=== PATIENT | male | born 1970 | race Caucasian/White ===

== ENCOUNTER 2019-09-02 14:43 | Emergency (ER) | payer OTHER ==
--- OUTSIDE RECORDS SUMMARY | 2019-09-02 14:48 | XMS REPORT ---
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 Cristiana Luther Constipation active Cristiana Luther Std exposure completed - Cristiana Luther Fitting/adjustment, completed - Cristiana Luther glasses/contact lenses Open angle with borderline completed - Cristiana Luther findings, low risk, bilateral Presbyopia - OU completed - Cristiana Luther Myopia, right eye completed - Cristiana Luther Thrombocytopenia active Cristiana Luther Hyperlipidemia active Cristiana Luther Transaminases, serum, elevated active Cristiana Luther URI completed - Cristiana Luther Overweight active Cristiana Luther Syphilis active Cristiana Luther Psoriasis active Cristiana Luther Health care maintenance active Cristiana Luther Tobacco use active Cristiana Luther Cigarette smoker completed - Cristiana Luther Mycobacterial disease active Emerson Anderson Positive serology for syphilis completed - Cristiana Luther Hepatitis C active Emerson Anderson Pre-procedural laboratory completed - Emerson Anderson examination HIV infection active Nathalie Worthy ENCOUNTERS Date Type Provider Location Encounter Diagnosis Ambulatory Cristiana Luther [facility] [facility] Adult UNK /30 - Encounter Cristiana Luther Medicine Nique Andino /30 MedAdherence, Ambulatory Cristiana Luther [facility] [place] Adult UNK /12 - Encounter Cristiana Luther Medicine [facility] /12 2019/09 Ambulatory Cristiana Luther [facility] Adult UNK /12 - Encounter Cristiana Ashkan Medicine [facility] Ambulatory Cristiana Luther [facility] Adult UNK /12 - Encounter Cristiana Ashkan Medicine Ambulatory Cristianatom Luther [facility] Adult UNK /12 - Encounter Cristianatom Luther Medicine Ambulatory Cristiana Luther [facility] Adult Std exposureConstipationFamily /12 - Encounter Cristiana Ashkan Medicine discordNoncompliance Sandra /12 Yoder Porfirio Whitmore Ambulatory Cristiana Luther [facility] Adult UNK /04 - Encounter Cristianatom Luther Medicine [facility] Ambulatory Cristiana Luther [facility] Adult UNK /29 - Encounter Cristianatom Luther Medicine Link Ambulatory Dahlia [facility] UNK /26 - Encounter [facility] Health / Services Ambulatory Dahlia Legacy UNK /31 - Encounter [facility] Health Services Ambulatory Jewel Tristan UNK /18 - Encounter [facility] Services Ambulatory Fax Status Legacy UNK /16 - Encounter [facility] Health / Services Ambulatory Cristiana Luther [facility] Adult UNK /25 - Encounter Cristiana Ashkan Medicine [facility] Ambulatory Cristiana Luther [facility] Adult UNK /26 - Encounter Cristianatom Luther Medicine [facility] Ambulatory Cristiana Luther [facility] Adult UNK /26 - Encounter Cristiana Ashkan Medicine [facility] Ambulatory Karie [facility] UNK /02 - Encounter [facility] Health /02 Services Ambulatory Cristianatom Luther [facility] Adult Std exposure /14 - Encounter Cristiana Ashkan Medicine Ambulatory Dahlia [facility] UNK /01 - Encounter [facility] Health / Cristiana Ashkan Services Phu Pardo Ambulatory Porfirio Whitmore [facility] Adult UNK /29 - Encounter Medicine Ambulatory Cristiana Ashkan [facility] Adult UNK /26 - Encounter Cristiana Ashkan Medicine Porfirio Whitmore Ambulatory Cristiana Luther [facility] [place] Adult UNK /26 - Encounter Cristianatom Luther Medicine Ambulatory Cristiana Luther [facility] [place] Adult UNK / - [facility] Porfirio Whitmore Ambulatory Cristiana Luther [facility] [place] Adult URIMyopia, right eyePresbyopia - OUOpen / - [facility] angle with borderline findings, low Dahlia risk, bilateralFitting/adjustment, Jaspreet glasses/contact lenses Porfirioalbert Pardo Ambulatory Fax Status Legacy UNK /22 - Encounter [facility] Health / Services Ambulatory Fax Status Legacy UNK /22 - Encounter [facility] Services Ambulatory Cristiana Luther [facility] [place] Adult UNK /12 - [facility] Nguyen Simpson [facility] [place] Adult UNK /12 - Encounter Medicine Ambulatory Nguyen Simpson [facility] [place] [facility] Adult UNK /12 - [facility]15 - Encounter [facility] Ambulatory Jerri [facility] [place] Vision UNK /21 - Encounter Marcum [facility]21 - [facility]21 - [facility] Fitting/adjustment, glasses/ contact / - Encounter Jerri lenses Marcum Ambulatory Cristiana Luther [facility] [place] Adult UNK /31 - Encounter Cristiana Ashkan Medicine [facility] Ambulatory Angelia [facility] Public UNK /05 - Encounter [facility] Services Ambulatory Jerri [facility] Vision UNK /14 - Encounter Marcum Ambulatory [facility] Vision UNK /14 - Encounter Delong Ambulatory [facility] Vision UNK /14 - Encounter Delong Ambulatory Kt Cuevas [facility] [place] Vision UNK /14 - Encounter Delong Charity Chavez Ambulatory Luca Wilkins [facility] [place] Vision UNK /14 - Encounter Ambulatory Luca Wilkins [facility] [place] Vision UNK /14 - Encounter Ambulatory Luca Wilkins [facility] [place] Vision UNK /14 - Encounter Ambulatory Luca Wilkins [facility] [place] [facility] Vision Myopia, right eyePresbyopia - OUOpen - Encounter Jerri angle with borderline findings, low Marcum risk, bilateral Ambulatory Cristiana [facility] Adult UNK /14 - Encounter Cristiana Ashkan Medicine Ambulatory Liliam [facility] [place] Adult UNK /08 - Encounter Paulo Medicine Ambulatory Liliam [facility] [place] Adult UNK /08 - Encounter Paulo Medicine Ambulatory Cristiana Luther [facility] [place] Adult UNK /08 - Encounter Cristianatom Luther Medicine Ambulatory Cristiana [facility] Adult URITransaminases, serum, - Encounter Cristiana Ashkan Medicine elevatedHyperlipidemiaThrombocytopenia Porfirio Whitmore Ambulatory Cristiana Luther [facility] [place] Adult UNK /25 - Encounter Cristiana Ashkan Medicine [facility] Ambulatory Grupo Griffith [facility] [place] Adult UNK /07 - Encounter Medicine Ambulatory Emerson Anderson [facility] [place] Adult UNK /05 - Encounter Emerson Anderson Medicine [facility] Ambulatory Cristiana Luther [facility] [place] Adult UNK /25 - Encounter Cristiana Ashkan Medicine [facility] Ambulatory Myla [facility] UNK /15 - [facility]15 Services Ambulatory Hassel Brown [facility] UNK /07 - [facility]counter [facility]07 Services Ambulatory Cristiana Ashkan [facility] [place] [facility] Adult UNK /21 - Encounter Cristiana Ashkan Medicine [facility] Ambulatory Jannette [facility] [place] Adult UNK / - Encounter Mo Medicine Ambulatory Fax Status Legacy UNK / - Encounter [facility]19 Services Ambulatory Fax Status Legacy UNK /19 - Encounter [facility] Health / Services Ambulatory Fax Status Legacy UNK /19 - Encounter [facility] Health / Services Ambulatory Cristiana Luther [facility] Adult UNK /14 - Encounter Cristiana Luther Medicine [facility] Ambulatory Cristiana Luther [facility] Adult UNK /14 - Encounter Cristianatom Luther Medicine [facility] Ambulatory Angelia [facility] Public UNK /14 - Encounter [facility] Ambulatory Stella [facility] Social UNK /14 - Encounter [facility] Services Ambulatory Cristiana Luther [facility] Adult UNK /14 - Encounter Cristiana Luther Medicine Ambulatory Cristiana Luther [facility] Adult Overweight /14 - Encounter Cristiana Luther Medicine Lizzette Presley /Allison Gabrielo Ambulatory Grupo Griffith [facility] Adult UNK /13 - Encounter Medicine Ambulatory Cristiana Luther [facility] Adult UNK /13 - Encounter Cristiana Luther Medicine NelsonSandoval Ambulatory Emerson Anderson [facility] Adult UNK /13 - Encounter Emerson Bishops Medicine Ambulatory Cristiana Luther [facility] Adult UNK /30 - Encounter Cristianatom Luther Medicine [facility] Ambulatory Cristiana Luther Legacy UNK /31 - Encounter Cristianatom Luther [facility] /31 Services Ambulatory Monik De La [facility] Social UNK /29 - Encounter Arturo Services Ambulatory Stella [facility] Social UNK /20 - Encounter [facility] Services Ambulatory Porfirio Whitmore [facility] Adult UNK /13 - Encounter Medicine Ambulatory Cristiana Luther [facility] Adult UNK /13 - Encounter Cristianatom Luther Medicine Ambulatory Johana Estrada [facility] Social UNK /08 - Encounter Services Ambulatory Sailaja Edy Legacy UNK /07 - Encounter [facility] /07 Services Ambulatory Fax Status Legacy UNK /05 - Encounter [facility] Health /05 Services Ambulatory Fax Status Legacy UNK /05 - Encounter [facility] Health /05 Services Ambulatory Fax Status Legacy UNK /05 - Encounter [facility] Health /05 Services Ambulatory Fax Status Legacy UNK /05 - Encounter [facility] Health /05 Services Ambulatory Fax Status Legacy UNK /05 - Encounter [facility] Health /05 Services Ambulatory Cristiana Ashkan [facility] Adult UNK /02 - Encounter Cristiana Ashkan Medicine Ambulatory Cristiana Ashkan [facility] Adult UNK /02 - Encounter Cristiana Ashkan Medicine Ambulatory Cristiana Ashkan [facility] Adult Positive serology for syphilisCigarette / - Encounter Cristiana Ashkan Medicine smokerTobacco useSt[facility] Lizzette Presley maintenancePsoriasisSyphilis / Tayler Damon-Jaime Larios Ambulatory Britany [facility] Adult UNK / - Encounter Elmore Medicine Ambulatory Emerson Anderson [facility] Adult UNK / - Encounter Emerson Anderson Medicine Ambulatory Emerson Anderson [facility] Adult UNK /05 - Encounter Emerson Anderson Medicine LinkLog Ambulatory Emerson Anderson [facility] Adult UNK /05 - Encounter Emerson Anderson Medicine [facility] Ambulatory Johana Bracco [facility] Social UNK /18 - Encounter Services Ambulatory Lizzsheridan Nguyễnedo [facility] Social UNK /18 - Encounter Services Ambulatory Johana Bracco [facility] Social UNK /18 - Encounter Services Ambulatory Johana Bracco [facility] Social UNK /16 - Encounter Services Ambulatory Johana Bracco [facility] Social UNK /15 - Encounter Services Ambulatory Lizz Fox [facility] Social UNK /15 - Encounter Services Ambulatory Emerson Anderson [facility] Adult UNK / - Encounter Emerson Anderson Medicine [facility]Log Ambulatory Johana Bracco [facility] Social UNK / - Encounter [facility] Services Ambulatory Emerson Anderson [facility] Adult UNK - Encounter Emerson Anderson Medicine LinkLog Ambulatory Johana Limoncco [facility] Social UNK - Encounter Services Ambulatory Johana Limoncco [facility] Social UNK / - Encounter Services Ambulatory Emerson Anderson [facility] Adult UNK - Encounter Emerson Anderson Medicine Link Ambulatory Johana Bracco [facility] Social UNK / - Encounter Services Ambulatory Johana Limoncco [facility] Social UNK - Encounter [facility]rius [facility] Services Jannette Alfaro / Thida Dickson Ambulatory Emerson Anderson [facility] Adult UNK / - Encounter Emerson Anderson Medicine Derrick Rosen /05 Ambulatory Emerson Anderson [facility] Adult UNK - Encounter Emerson Anderson Medicine Ambulatory Emerson Anderson [facility] Adult UNK / - Encounter Emerson Anderson Medicine Alejandrina J /05 Benitez Ambulatory Emerson Anderson [facility] Adult Pre-procedural / - Encounter Emerson Anderson Medicine examinationHepatitis CPositive serology Derrick Rosen for syphilisMycobacterial Alejandrina Lockwood diseaseCigarAdventHealth [facility] Angelia Damon-Sandoval Ambulatory Emerson Anderson [facility] Adult UNK - Encounter Emerson Anderson Medicine Alejandrina J /27 Benitez Ambulatory Emerson Anderson [facility] Adult UNK - Encounter Emerson Anderson Medicine Alejandrina Mandie /27 Benitez Ambulatory Emerson Anderson [facility] Adult UNK - Encounter Emerson Anderson Medicine [facility] Ambulatory Emerson Anderson [facility] Adult UNK - Encounter [facility] /21 Ambulatory [facility] Adult HIV infectionPre-procedural laboratory / - Encounter [facility] examination Nathalie Deacon Nathalie Worthy VITAL SIGNS No Information Available Allergies No Known Allergy Information REASON FOR REFERRAL Start Date - End Date Service - Fibroscan - Limited ultrasound of liver with transient elastography RESULTS Date Observation Value Provider Reference Interpretation Location Range / prothrombin time 10.6 s [facility] 9.1-12.0 04 (patient) " international 1.0 [facility] 0.8-1.2 normalized ratio (INR) " HIV-1RNA, serum, by 355726 /mL [facility] PCR, quantitative " alanine 53 1/L [facility] 0-44 High aminotransferase (SGPT), serum " aspartate 66 1/L [facility] 0-40 High aminotransferase (SGOT), serum " alkaline 74 1/L [facility] 39-117 phosphatase, serum " albumin/globulin 1.3 [facility] 1.2-2.2 ratio, serum " globulin, serum 3.0 [facility] 1.5-4.5 " albumin, serum 3.8 g/dL [facility] 3.5-5.5 " protein, total, 6.8 g/dL [facility] 6.0-8.5 serum " calcium, serum 8.7 mg/dL [facility] 8.7-10.2 " carbon dioxide, 21 mmol/L [facility] 20-29 venous blood " chloride, serum 105 mmol/L [facility] 96-106 " potassium, serum 3.9 mmol/L [facility] 3.5-5.2 " sodium, serum 140 mmol/L [facility] 134-144 " urea 12 [facility] 9-20 nitrogen/creatinine ratio, serum " eGFR if 116 [facility] >59 Iraqi mL/min/((17 3/100).m2) " Estimated 101 [facility] >59 Glomerular mL/min/((17 Filtration Rate 3/100).m2) (calc) " creatinine, serum 0.90 mg/dL [facility] 0.76-1.27 " urea nitrogen, 11 mg/dL [facility] 6-24 blood " blood glucose, 87 mg/dL [facility] 65-99 random " gamma glutamyl 47 1/L [facility] 0-65 transferase, serum " bilirubin, serum, 0.5 mg/dL [facility] 0.0-1.2 total " apolipoprotein A-1, 86 mg/dL [facility] 101-178 Low serum " haptoglobin, serum 86 mg/dL [facility] 34-200 " alpha-2 230 mg/dL [facility] 110-276 macroglobulin, serum " HCV Fibrosure 0.36 [facility] 0.00-0.21 High " immature 0 % [facility] Not Estab. granulocytes, percentage of total cells, blood " basophil count, 0.0 [facility] 0.0-0.2 absolute x10E3/uL " Eosinophil Absolute 0.2 [facility] 0.0-0.4 Count X10E3/UL " monocyte count, 0.4 [facility] 0.1-0.9 blood, automated X10E3/UL " lymphocyte count, 0.9 [facility] 0.7-3.1 blood, automated X10E3/UL " Absolute 1.6 [facility] 1.4-7.0 Neutrophils X10E3/UL " basophils as 1 % [facility] Not Estab. percent of blood leukocytes " eosinophils as 7 % [facility] Not Estab. percent of blood leukocytes " monocytes as 13 % [facility] Not Estab. percent of blood leukocytes " lymphocytes as 29 % [facility] Not Estab. percent of blood leukocytes " neutrophils as 50 % [facility] Not Estab. percent of blood leukocytes " platelet count 55 X10E3/UL [facility] 150-450 Panic low " red blood cell 14.7 % [facility] 12.3-15.4 distribution width " mean corpuscular 33.8 G/DL [facility] 31.5-35.7 hemoglobin concentration, RBC " mean corpuscular 31.2 pg [facility] 26.6-33.0 hemoglobin, RBC " mean corpuscular 92 fL [facility] 79-97 volume, RBC " hematocrit, blood 37.9 % [facility] 37.5-51.0 " hemoglobin, blood 12.8 g/dL [facility] 13.0-17.7 Low " erythrocyte (RBC) 4.10 [facility] 4.14-5.80 Low count X10E6/UL " leukocyte count, 3.2 [facility] 3.4-10.8 Low blood X10E3/UL " CD4/CD8 ratio 0.12 [facility] 0.92-3.72 Low " T-suppressor cells 64.0 % [facility] 12.0-35.5 High (CD8) as percent of blood lymphocytes " absolute CD8 576 [facility] 109-897 " T-helper cells 7.8 % [facility] 30.8-58.5 Low (CD4) as percent of blood lymphocytes " T-helper cells 70 /UL [facility] 359-1519 Low (CD4) count / Treponema pallidum Positive [facility] Negative Abnormal 25 antibodies, by particle agglutination " rapid plasma reagin 1:4 [facility] NonRea<1:1 High antibody, serum " HIV genotype result GENRTI [facility] " HIV-1RNA, serum, by 3060 /mL [facility] PCR, quantitative " alanine 51 1/L [facility] 0-44 High aminotransferase (SGPT), serum " aspartate 47 1/L [facility] 0-40 High aminotransferase (SGOT), serum " alkaline 87 1/L [facility] 39-117 phosphatase, serum " bilirubin, serum, 0.3 mg/dL [facility] 0.0-1.2 total " albumin/globulin 1.3 [facility] 1.2-2.2 ratio, serum " globulin, serum 3.2 [facility] 1.5-4.5 " albumin, serum 4.3 g/dL [facility] 3.5-5.5 " protein, total, 7.5 g/dL [facility] 6.0-8.5 serum " calcium, serum 8.9 mg/dL [facility] 8.7-10.2 " carbon dioxide, 18 mmol/L [facility] 20-29 Low venous blood " chloride, serum 109 mmol/L [facility] 96-106 High " potassium, serum 4.3 mmol/L [facility] 3.5-5.2 " sodium, serum 141 mmol/L [facility] 134-144 " urea 10 [facility] 9-20 nitrogen/creatinine ratio, serum " eGFR if 91 [facility] >59 Iraqi mL/min/((17 3/100).m2) " Estimated 79 [facility] >59 Glomerular mL/min/((17 Filtration Rate 3/100).m2) (calc) " creatinine, serum 1.10 mg/dL [facility] 0.76-1.27 " urea nitrogen, 11 mg/dL [facility] 6-24 blood " blood glucose, 89 mg/dL [facility] 65-99 random " immature 0 % [facility] Not Estab. granulocytes, percentage of total cells, blood " basophil count, 0.0 [facility] 0.0-0.2 absolute x10E3/uL " Eosinophil Absolute 0.3 [facility] 0.0-0.4 Count X10E3/UL " monocyte count, 0.5 [facility] 0.1-0.9 blood, automated X10E3/UL " lymphocyte count, 0.9 [facility] 0.7-3.1 blood, automated X10E3/UL " Absolute 1.4 [facility] 1.4-7.0 Neutrophils X10E3/UL " basophils as 1 % [facility] Not Estab. percent of blood leukocytes " eosinophils as 10 % [facility] Not Estab. percent of blood leukocytes " monocytes as 15 % [facility] Not Estab. percent of blood leukocytes " lymphocytes as 29 % [facility] Not Estab. percent of blood leukocytes " neutrophils as 45 % [facility] Not Estab. percent of blood leukocytes " platelet count 95 X10E3/UL [facility] 150-379 Panic low " red blood cell 14.6 % [facility] 12.3-15.4 distribution width " mean corpuscular 37.3 G/DL [facility] 31.5-35.7 High hemoglobin concentration, RBC " mean corpuscular 34.8 pg [facility] 26.6-33.0 High hemoglobin, RBC " mean corpuscular 93 fL [facility] 79-97 volume, RBC " hematocrit, blood 36.7 % [facility] 37.5-51.0 Low " hemoglobin, blood 13.7 g/dL [facility] 13.0-17.7 " erythrocyte (RBC) 3.94 [facility] 4.14-5.80 Low count X10E6/UL " leukocyte count, 3.1 [facility] 3.4-10.8 Low blood X10E3/UL " CD4/CD8 ratio 0.16 [facility] 0.92-3.72 Low " T-suppressor cells 64.1 % [facility] 12.0-35.5 High (CD8) as percent of blood lymphocytes " absolute CD8 577 [facility] 109-897 " T-helper cells 10.1 % [facility] 30.8-58.5 Low (CD4) as percent of blood lymphocytes " T-helper cells 91 /UL [facility] 359-1519 Low (CD4) count / HIV-1RNA, serum, by 1250 /mL [facility] 12 PCR, quantitative " alanine 48 1/L [facility] 0-44 High aminotransferase (SGPT), serum " aspartate 54 1/L [facility] 0-40 High aminotransferase (SGOT), serum " alkaline 72 1/L [facility] 39-117 phosphatase, serum " bilirubin, serum, 0.4 mg/dL [facility] 0.0-1.2 total " albumin/globulin 1.5 [facility] 1.2-2.2 ratio, serum " globulin, serum 3.1 [facility] 1.5-4.5 " albumin, serum 4.5 g/dL [facility] 3.5-5.5 " protein, total, 7.6 g/dL [facility] 6.0-8.5 serum " calcium, serum 9.0 mg/dL [facility] 8.7-10.2 " carbon dioxide, 20 mmol/L [facility] 20-29 venous blood " chloride, serum 107 mmol/L [facility] 96-106 High " potassium, serum 4.1 mmol/L [facility] 3.5-5.2 " sodium, serum 143 mmol/L [facility] 134-144 " urea 9 [facility] 9-20 nitrogen/creatinine ratio, serum " eGFR if 104 [facility] >59 Iraqi mL/min/((17 3/100).m2) " Estimated 90 [facility] >59 Glomerular mL/min/((17 Filtration Rate 3/100).m2) (calc) " creatinine, serum 0.99 mg/dL [facility] 0.76-1.27 " urea nitrogen, 9 mg/dL [facility] 6-24 blood " blood glucose, 86 mg/dL [facility] 65-99 random " immature 0 % [facility] Not Estab. granulocytes, percentage of total cells, blood " basophil count, 0.0 [facility] 0.0-0.2 absolute x10E3/uL " Eosinophil Absolute 0.3 [facility] 0.0-0.4 Count X10E3/UL " monocyte count, 0.5 [facility] 0.1-0.9 blood, automated X10E3/UL " lymphocyte count, 1.3 [facility] 0.7-3.1 blood, automated X10E3/UL " Absolute 1.7 [facility] 1.4-7.0 Neutrophils X10E3/UL " basophils as 0 % [facility] Not Estab. percent of blood leukocytes " eosinophils as 8 % [facility] Not Estab. percent of blood leukocytes " monocytes as 13 % [facility] Not Estab. percent of blood leukocytes " lymphocytes as 34 % [facility] Not Estab. percent of blood leukocytes " neutrophils as 45 % [facility] Not Estab. percent of blood leukocytes " platelet count 86 X10E3/UL [facility] 150-379 Panic low " red blood cell 15.2 % [facility] 12.3-15.4 distribution width " mean corpuscular 33.9 G/DL [facility] 31.5-35.7 hemoglobin concentration, RBC " mean corpuscular 32.2 pg [facility] 26.6-33.0 hemoglobin, RBC " mean corpuscular 95 fL [facility] 79-97 volume, RBC " hematocrit, blood 42.5 % [facility] 37.5-51.0 " hemoglobin, blood 14.4 g/dL [facility] 13.0-17.7 " erythrocyte (RBC) 4.47 [facility] 4.14-5.80 count X10E6/UL " leukocyte count, 3.8 [facility] 3.4-10.8 blood X10E3/UL " CD4/CD8 ratio 0.12 [facility] 0.92-3.72 Low " T-suppressor cells 68.2 % [facility] 12.0-35.5 High (CD8) as percent of blood lymphocytes " absolute CD8 887 [facility] 109-897 " T-helper cells 8.3 % [facility] 30.8-58.5 Low (CD4) as percent of blood lymphocytes " T-helper cells 108 /UL [facility] 359-1519 Low (CD4) count / Quantiferon Gold TB Negative [facility] Negative 05 blood test for tuberculosis screening / LDL cholesterol, 107 mg/dL [facility] 0-99 High 25 serum " very low density 21 mg/dL [facility] 5-40 lipoproteins " HDL cholesterol, 38 mg/dL [facility] >39 Low serum " triglyceride, 105 mg/dL [facility] 0-149 serum, fasting " cholesterol, serum 166 mg/dL [facility] 144-086 2599/12/ Neisseria Negative [facility] Negative 14 gonorrhoeae DNA probe " chlamydia DNA probe Negative [facility] Negative / hepatitis B surface Negative [facility] Negative 14 antigen / Treponema pallidum Positive [facility] Negative Abnormal 30 antibodies, by particle agglutination " rapid plasma reagin 1:2 [facility] NonRea<1:1 High antibody, serum " hemoglobin A1C, 5.1 % [facility] 4.8-5.6 blood, as % of total hemoglobin " prothrombin time 10.4 s [facility] 9.1-12.0 (patient) " international 1.0 [facility] 0.8-1.2 normalized ratio (INR) " HIV-1RNA, serum, by 332748 /mL [facility] PCR, quantitative " Hepatitis C virus 1a [facility] genotype, PCR (Polymerase Chain Reaction) " Hepatitis C virus [id number] [facility] (HCV) RNA, PCR, [iU]/mL quantitative " LDL cholesterol, TRIGHI [facility] 0-99 serum mg/dL " very low density VLDLCH [facility] 5-40 lipoproteins mg/dL " HDL cholesterol, 22 mg/dL [facility] >39 Low serum " triglyceride, 480 mg/dL [facility] 0-149 High serum, fasting " cholesterol, serum 139 mg/dL [facility] 100-199 " alanine 39 1/L [facility] 0-44 aminotransferase (SGPT), serum " aspartate 46 1/L [facility] 0-40 High aminotransferase (SGOT), serum " alkaline 78 1/L [facility] 39-117 phosphatase, serum " bilirubin, serum, <0.2 mg/dL [facility] 0.0-1.2 total " albumin/globulin 1.2 [facility] 1.2-2.2 ratio, serum " globulin, serum 3.2 [facility] 1.5-4.5 " albumin, serum 3.8 g/dL [facility] 3.5-5.5 " protein, total, 7.0 g/dL [facility] 6.0-8.5 serum " calcium, serum 8.7 mg/dL [facility] 8.7-10.2 " carbon dioxide, 21 mmol/L [facility] 20-29 venous blood " chloride, serum 105 mmol/L [facility] 96-106 " potassium, serum 4.1 mmol/L [facility] 3.5-5.2 " sodium, serum 141 mmol/L [facility] 134-144 " urea 11 [facility] 9-20 nitrogen/creatinine ratio, serum " eGFR if 122 [facility] >59 Iraqi mL/min/((17 3/100).m2) " Estimated 105 [facility] >59 Glomerular mL/min/((17 Filtration Rate 3/100).m2) (calc) " creatinine, serum 0.82 mg/dL [facility] 0.76-1.27 " urea nitrogen, 9 mg/dL [facility]Log[facility] 6-24 blood " blood glucose, 88 mg/dL [facility] 65-99 random " immature 0 % [facility] Not Estab. granulocytes, percentage of total cells, blood " basophil count, 0.0 [facility] 0.0-0.2 absolute x10E3/uL " Eosinophil Absolute 0.3 [facility] 0.0-0.4 Count X10E3/UL " monocyte count, 0.3 [facility] 0.1-0.9 blood, automated X10E3/UL " lymphocyte count, 0.9 [facility] 0.7-3.1 blood, automated X10E3/UL " Absolute 1.2 [facility] 1.4-7.0 Low Neutrophils X10E3/UL " basophils as 0 % [facility] Not Estab. percent of blood leukocytes " eosinophils as 10 % [facility] Not Estab. percent of blood leukocytes " monocytes as 12 % [facility] Not Estab. percent of blood leukocytes " lymphocytes as 34 % [facility] Not Estab. percent of blood leukocytes " neutrophils as 44 % [facility] Not Estab. percent of blood leukocytes " platelet count 61 X10E3/UL [facility] 150-379 Panic low " red blood cell 13.4 % [facility] 12.3-15.4 distribution width " mean corpuscular 35.1 G/DL [facility] 31.5-35.7 hemoglobin concentration, RBC " mean corpuscular 31.8 pg [facility] 26.6-33.0 hemoglobin, RBC " mean corpuscular 91 fL [facility] 79-97 volume, RBC " hematocrit, blood 38.8 % [facility] 37.5-51.0 " hemoglobin, blood 13.6 g/dL [facility] 13.0-17.7 " erythrocyte (RBC) 4.28 [facility] 4.14-5.80 count X10E6/UL " leukocyte count, 2.7 [facility] 3.4-10.8 Low blood X10E3/UL " CD4/CD8 ratio 0.09 [facility] 0.92-3.72 Low " T-suppressor cells 68.0 % [facility] 12.0-35.5 High (CD8) as percent of blood lymphocytes " absolute CD8 612 [facility] 109-897 " T-helper cells 6.2 % [facility] 30.8-58.5 Low (CD4) as percent of blood lymphocytes " T-helper cells 56 /UL [facility] 359-1519 Low (CD4) count / hepatitis A Positive [facility] Negative Abnormal 21 antibody, total " hepatitis B core Negative [facility] Negative antibody, total " hepatitis B surface Negative [facility] Negative antigen " Treponema pallidum Reactive [facility] Non Reactive Abnormal Ab, serum " rapid plasma reagin 1:4 [facility] NonRea<1:1 High antibody, serum " hepatitis C >11.0 [facility] 0.0-0.9 High antibody, serum " HIV-2 antibodies, Negative [facility] Negative western blot " HIV-1/HIV-2 Ab, Positive [facility] Negative Abnormal serum " HIV-CMIA Reactive [facility] Non Reactive Abnormal (Chemiluminescent Microparticle Immuno Assay) " human leukocyte Negative [facility] antigen B57 " toxoplasma gondii <3.0 [facility] 0.0-7.1 antibody, IgG " hepatitis B surface Reactive [facility] antibody " HIV-1RNA, serum, by [id number] /mL [facility] PCR, quantitative " alanine 41 1/L [facility] 0-44 aminotransferase (SGPT), serum " aspartate 45 1/L [facility] 0-40 High aminotransferase (SGOT), serum " alkaline 78 1/L [facility] 39-117 phosphatase, serum " bilirubin, serum, 0.3 mg/dL [facility] 0.0-1.2 total " albumin/globulin 1.4 [facility] 1.2-2.2 ratio, serum " globulin, serum 3.1 [facility] 1.5-4.5 " albumin, serum 4.4 g/dL [facility] 3.5-5.5 " protein, total, 7.5 g/dL [facility] 6.0-8.5 serum " calcium, serum 8.9 mg/dL [facility] 8.7-10.2 " carbon dioxide, 20 mmol/L [facility] 20-29 venous blood " chloride, serum 100 mmol/L [facility] 96-106 " potassium, serum 4.2 mmol/L [facility] 3.5-5.2 " sodium, serum 139 mmol/L [facility] 134-144 " urea 10 [facility] 9-20 nitrogen/creatinine ratio, serum " eGFR if 121 [facility] >59 Iraqi mL/min/((17 3/100).m2) " Estimated 105 [facility] >59 Glomerular mL/min/((17 Filtration Rate 3/100).m2) (calc) " creatinine, serum 0.83 mg/dL [facility] 0.76-1.27 " urea nitrogen, 8 mg/dL [facility] 6-24 blood " blood glucose, 90 mg/dL [facility] 65-99 random " immature 0 % [facility] Not Estab. granulocytes, percentage of total cells, blood " basophil count, 0.0 [facility] 0.0-0.2 absolute x10E3/uL " Eosinophil Absolute 0.3 [facility] 0.0-0.4 Count X10E3/UL " monocyte count, 0.5 [facility] 0.1-0.9 blood, automated X10E3/UL " lymphocyte count, 0.8 [facility] 0.7-3.1 blood, automated X10E3/UL " Absolute 2.3 [facility] 1.4-7.0 Neutrophils X10E3/UL " basophils as 0 % [facility] Not Estab. percent of blood leukocytes " eosinophils as 7 % [facility] Not Estab. percent of blood leukocytes " monocytes as 14 % [facility] Not Estab. percent of blood leukocytes " lymphocytes as 19 % [facility] Not Estab. percent of blood leukocytes " neutrophils as 60 % [facility] Not Estab. percent of blood leukocytes " platelet count 87 X10E3/UL [facility] 150-379 Panic low " red blood cell 13.7 % [facility] 12.3-15.4 distribution width " mean corpuscular 36.1 G/DL [facility] 31.5-35.7 High hemoglobin concentration, RBC " mean corpuscular 34.1 pg [facility] 26.6-33.0 High hemoglobin, RBC " mean corpuscular 94 fL [facility] 79-97 volume, RBC " hematocrit, blood 40.4 % [facility] 37.5-51.0 " hemoglobin, blood 14.6 g/dL [facility] 13.0-17.7 " erythrocyte (RBC) 4.28 [facility] 4.14-5.80 count X10E6/UL " leukocyte count, 3.9 [facility] 3.4-10.8 blood X10E3/UL " CD4/CD8 ratio 0.13 [facility] 0.92-3.72 Low " T-suppressor cells 64.2 % [facility] 12.0-35.5 High (CD8) as percent of blood lymphocytes " absolute CD8 514 [facility] 109-897 " T-helper cells 8.1 % [facility] 30.8-58.5 Low (CD4) as percent of blood lymphocytes " T-helper cells 65 /UL [facility] 359-1519 Low (CD4) count / Neisseria Negative [facility] Negative 21 gonorrhoeae DNA probe " chlamydia DNA probe Negative [facility] Negative HISTORY OF IMMUNIZATIONS Date Vaccine Dose Lot Number Status Pneumovax 23 IM/SQ [id number] [employer] & 0.5 mL [id number] [employer] HISTORY OF MEDICATION USE Medication Instructions Dates Provider Comments TRUVADA 200-300 MG 1 by mouth daily Cristiana Ashkan ORAL TABLET MEDROL 4 MG ORAL use as directed - Cristiana Ashkan TABLET THERAPY PACK AUGMENTIN 875-125 MG 1 by mouth twice a day - Cristiana Ashkan ORAL TABLET DOXYCYCLINE HYCLATE 1 by mouth twice a day - Cristiana Ashkan 100 MG ORAL CAPSULE CALCITRIOL 3 MCG/G APPLY TO THE AFFECTED Nvein Andino OINT. (G) AREA(S) TWO TIMES A MedAdherence, DAY TIVICAY 50 MG ORAL 1 By Mouth once a day Cristiana Ashkan TABLET EPZICOM 600-300 MG 1 By Mouth Every Day - Cristiana Ashkan ORAL TABLET CALCITRENE 0.005 % Apply BID to affected - Sailaja Snow EXTERNAL OINTMENT area. AZITHROMYCIN 500 MG Take one tablet by Emerson Anderson ORAL TABLET mouth once daily RIFABUTIN 150 MG ORAL Take two capules by Emerson Anderson CAPSULE mouth once daily ETHAMBUTOL HCL 400 MG Take 2.5 tablets by Emerson Anderson ORAL TABLET mouth once daily BACTRIM DS 800-160 MG Take one tablet by Cristiana Ashkan ORAL TABLET mouth once daily SOCIAL HISTORY Date Observation Value Provider social history reviewed E&M reviewed today Cristiana Luther " drug use, illicit Previously Porfirio Whitmore " alcohol use Never Porfirio Whitmore " sexual orientation Canela Porfirio Whitmore " assessment of health literacy Adequate Porfirio Whitmore ([employer] 2014 Standards, 3C10) " passive cigarette smoke No Porfirio Whitmore exposure " smoking status current every day smoker Porfirio Whitmore social history reviewed E&M reviewed today Cristiana Luther " drug use, illicit Previously Porfirio Whitmore " alcohol use Never Porfirio Whitmore " sexual orientation Canela Porfirio Whitmore " assessment of health literacy Adequate Porfirio Whitmore ([employer] 2014 Standards, 3C10) " passive cigarette smoke No Porfirio Whitmore exposure " smoking status current every day smoker Porfirio Whitmore time of call 10/14/2018 1:57 PM Angelia Villanueva sexual orientation Canela Jerri Marcum social history reviewed E&M reviewed today Cristiana Luther " drug use, illicit Previously Porfirio Whitmore " alcohol use Never Porfirio Whitmore " sexual orientation Canela Porfirio Whitmore " assessment of health literacy Adequate Porfirio Whitmore ([employer] 2014 Standards, 3C10) " passive cigarette smoke Yes Porfirio Whitmore exposure " smoking status current every day smoker Porfirio Whitmore time of call 07/25/2018 2:52 PM Angelia Villanueva social history reviewed E&M reviewed today Cristiana Luther " drug use, illicit Previously Porfirio Whitmore " alcohol use Never Porfirio Whitmore " sexual orientation Canela Porfirio Whitmore " assessment of health literacy Adequate Porfirio Whitmore ([employer] 2014 Standards, 3C10) " passive cigarette smoke Yes Porfirio Whitmore exposure " smoking status current every day smoker Porfirio Whitmore social history reviewed E&M reviewed today Cristiana Luther " drug use, illicit Previously Porfirio Whitmore " alcohol use Never Porfirio Whitmore " sexual orientation Canela Porfirio Whitmore " assessment of health literacy Adequate Porfirio Whitmore ([employer] 2014 Standards, 3C10) " passive cigarette smoke Yes Porfirio Whitmore exposure " smoking status current every day smoker Porfirio Whitmore Exercise Program Referral Brandon Anderson " Weight Management Counseling Brandon Anderson Provided " Nutrition intervention Brandon Anderson " sex at Male Alejandrina Benitez " patient considered to be No Alejandrina J Benitez homeless " sexual orientation Canela Alejandrina Benitez " drug use, illicit Never Alejandrina J Benitez " alcohol use Never Alejandrina J Benitez " social history reviewed E&M reviewed today Alejandrina Benitez " assessment of health literacy Adequate Alejandrina J Benitez ([facility] [facility] 2014 Standards, 3C10) " passive cigarette smoke No Alejandrina J Benitez exposure " smoking status current every day smoker Alejandrina Benitez FUNCTIONAL STATUS No Information Available MENTAL STATUS Date Observation Value Provider assessment of judgment and intact Cristiana Ashkan insight E&M " mental status examination: oriented to time, place, Cristiana Ashkan orientation E&M and person " assessment of mood and affect no depression, anxiety, or Cristiana Ashkan E&M agitation " Generalized Anxiety Disorder 2 Porfirio Whitmore Questionnaire - Question 2 " Generalized Anxiety Disorder 2 Porfirio Whitmore Questionnaire - Question 1 assessment of judgment and intact Cristiana Ashkan insight E&M " mental status examination: oriented to time, place, Cristiana Ashkan orientation E&M and person " assessment of mood and affect no depression, anxiety, or Cristiana Ashkan E&M agitation " Generalized Anxiety Disorder 0 Porfirio Whitmore Questionnaire - Question 2 " Generalized Anxiety Disorder 0 Porfirio Whitmore Questionnaire - Question 1 assessment of mood and affect good eye contact, normal Kt S Delong E&M affect " mental status examination: alert and oriented to Kt S Delong orientation E&M person, place, and time assessment of judgment and intact Cristiana Ashkan insight E&M " mental status examination: oriented to time, place, Cristiana Ashkan orientation E&M and person " assessment of mood and affect no depression, anxiety, or Cristiana Ashkan E&M agitation " Generalized Anxiety Disorder 0 Porfirio Whitmore Questionnaire - Question 2 " Generalized Anxiety Disorder 0 Porfirio Whitmore Questionnaire - Question 1 assessment of judgment and intact Cristiana Ashkan insight E&M " mental status examination: oriented to time, place, Cristiana Ashkan orientation E&M and person " assessment of mood and affect no depression, anxiety, or Cristiana Ashkan E&M agitation " Generalized Anxiety Disorder 0 Porfirio Whitmore Questionnaire - Question 2 " Generalized Anxiety Disorder 0 Porfirio Whitmore Questionnaire - Question 1 assessment of judgment and intact Cristiana Ashkan insight E&M " mental status examination: oriented to time, place, Cristiana Ashkan orientation E&M and person " assessment of mood and affect no depression, anxiety, or Cristiana Ashkan E&M agitation " Generalized Anxiety Disorder 0 Porfirio Whitmore Questionnaire - Question 2 " Generalized Anxiety Disorder 0 Porfirio Whitmore Questionnaire - Question 1 assessment of mood and affect no agitation Emerson Anderson E&M " Generalized Anxiety Disorder 0 Alejandrina J Benitez Questionnaire - Question 2 " Generalized Anxiety Disorder 0 Alejandrina J Benitez Questionnaire - Question 1 MEDICAL EQUIPMENT No Information Available FAMILY HISTORY No Information Available INSURANCE PROVIDERS Payer name Policy type / Coverage type Covered republican ID Chano White 101-200% Other [id number] Chano White 101-200% Other Chano White 101-200% Other Copay Assistance - Financial Services Other [id number] Sliding Fee - Cat 4 [employer] insurance tu.nr [id number] Chano White 101-200% Other [id number] [facility]ARP/MEDICARE COMPLETE HMO MedicareB [id number] ADVANCE DIRECTIVES No Information Available TREATMENT PLAN Date Name HIV- GS Archive Hepatitis C Virus ( HCV ) FibroSure Prothrombin Time (PT) with INR Comp. Metabolic Panel (14) CBC With Differential/Platelet CD4/CD8 Ratio Profile RNA, Real Time PCR (Graph) Comp. Metabolic Panel (14) CBC With Differential/Platelet CD4/CD8 Ratio Profile RNA, Real Time PCR (Graph) Lipid Panel RPR, Rfx Qn RPR/Confirm TP RNA, PCR(NonGraph)rfx/GenoPRI Comp. Metabolic Panel (14) CBC With Differential/Platelet CD4/CD8 Ratio Profile Chlamydia/GC Amplification HBsAg Screen Prothrombin Time (PT) with INR HCV RNA by PCR, Qn Rfx Heaven Hemoglobin A1c RPR, Rfx Qn RPR/Confirm TP Lipid Panel Comp. Metabolic Panel (14) CBC With Differential/Platelet CD4/CD8 Ratio Profile RNA, Real Time PCR (Graph) Trofile(TM) DNA Histoplasma Antigen, Urine Cryptococcus Antigen, Serum QuantiFERON TB Gold Plus GenoSure PRIme(SM) RPR Toxoplasma gondii Ab, IgG, Qn RNA, Real Time PCR (Graph) HLA B5701 Test HIV 1/2 ANTIGEN/ANTIBODY, FOURTH GENERATION W/RFL HCV Antibody HBsAg Screen Hep B Surface Ab Hep B Core Ab, Tot Hep A Ab, Total Comp. Metabolic Panel (14) Chlamydia/GC Amplification CBC With Differential/Platelet CD4/CD8 Ratio Profile - - - First Vx - Ix admin for Medicare patients Pneumovax 23 Injection Injectable 25 MCG/0.5ML Integrated Behavioral Health Assessment (IBH) Est Patient Detailed - 91218 Vaccines Ordered - Print Consent/Declination Forms Hepatitis C Support- [facility] [place] Prevnar (PCV13) IM Clinical Pharmacist Consultation - [facility] [place] Fluzone 0.5 ml (Influenza Vacc 3 years plus IM) Meningococcal Conj Tetravalent (MCV4) Admin of Vaccine - Injection - 1 Est Patient Exp Problem - 39821 Contact Insp/Mod (MODIFICAJ CONTACT LENX SPX SUPVJ ADAPTATION) Sphere, bif, plano to +/- 4.00d, per lens Frames, purchases deluxe Oph US Dx Crnl Pachymetry UNI/BI COMPUTERIZED OPHTHALMIC IMAGING OPTIC NERVE Est Patient Comprehensive Opth - 56721 Contact Lens Fitting (RX&FITG C-LENS SUPVJ CRNL LENS OU XCPT APHK) New Patient Intermediate Opth - 00945 Est Patient Exp Problem - 01831 Primary Care Medical Case Management Dental - Internal Est Patient Detailed - 69609 Vision Primary Care Medical Case Management Primary Care Medical Case Management Vision Est Patient Exp Problem - 82861 Primary Care Medical Case Management Primary Care Medical Case Management Primary Care Medical Case Management New Patient Exp Problem - 82615 Addiction Service Case Management Behavioral Health - Psychiatry Primary Care - Service Planning Comprehensive Primary Care - Assesment-Comprehensive [facility] Primary Care Medical Case Management Xray - Chest - 2 Views - InHouse Vision Handling of specimen for transfer Venipuncture HISTORY OF PROCEDURES Procedure Date Procedure Name Provider Procedure Notes Status First Vx - Ix admin for Cristiana Luther completed Medicare patients Pneumovax 23 Injection Cristiana Luther completed Injectable 25 MCG/0.5ML Vaccines Ordered - Cristiana Luther completed Print Consent/Declination Forms Contact Insp/Mod Luca Wilkins completed (MODIFICAJ CONTACT LENX SPX SUPVJ ADAPTATION) Sphere, bif, plano to Jerri Marcum completed +/- 4.00d, per lens Frames, purchases Jerri Marcum () completed deluxe Oph US Dx Crnl Kt Cuevas Baljeet completed Pachymetry UNI/BI COMPUTERIZED OPHTHALMIC Kt Cuevas Baljeet completed IMAGING OPTIC NERVE Est Patient Kt Delong completed Comprehensive Opth - 55645 Contact Lens Fitting Luca Wilkins completed (RX&FITG C-LENS SUPVJ CRNL LENS OU XCPT APHK) New Patient Luca Wilkins completed Intermediate Opth - 95175 Primary Care Medical Stella Rasmussen Time spent with completed Case Management patient: 45 Primary Care Medical Stella Rasmussen Time spent with completed Case Management patient: 15 Primary Care Medical Johana Estrada Time spent with completed Case Management patient:15 Primary Care Medical Johana Estrada Time spent with completed Case Management patient:15 Primary Care Medical Johana Estrada Time spent with completed Case Management patient:45 Primary Care Medical Johaan Estrada Time spent with completed Case Management patient:15 Primary Care [facility] Johana Estrada Time spent with completed Planning Comprehensive patient:30 Primary Care - Johana Estrada Time spent with completed Assesment-Comprehensive patient:30 [facility] Primary Care Medical Johana Estrada Time spent with completed Case Management patient:60 Venipuncture Emerson Anderson completed GOALS No Information Available HEALTH CONCERNS No Information Available
--- NOTE | 2019-09-02 16:17 | ER ---
Nurse's Notes [facility] Name: Fly Montes Age: 49 yrs Sex: Male : 1970 Arrival Date: 09/02/2019 Time: 14:50 Bed 11 Private MD: Diagnosis: STD Prophylaxis Presentation: 09/02 15:06 Presenting complaint: Patient states: thinks he was exposed to gonorrhea, denies pain iw with urination or discharge, partner tested positive. Transition of care: patient was not received from another setting of care. Onset of symptoms was September 02, 2019. Risk Assessment: Do you want to hurt yourself or someone else? Patient reports no desire to harm self or others. Initial Sepsis Screen: Does the patient meet any 2 criteria? No. Patient's initial sepsis screen is negative. Does the patient have a suspected source of infection? No. Patient's initial sepsis screen is negative. Care prior to arrival: None. 15:06 Method Of Arrival: Ambulatory iw 15:06 Acuity: ETHAN 4 iw Triage Assessment: 16:00 General: Appears in no apparent distress. Behavior is calm, cooperative. iw Historical: - Allergies: 15:09 No Known Allergies; iw - Home Meds: 15:09 Truvada oral oral [Active]; Azithromycin Oral [Active]; Reyataz oral oral [Active]; iw Rifampin Oral [Active]; ethambutol oral oral [Active]; - PMHx: 15:09 HIV; iw - PSHx: 15:09 elbow; iw - Immunization history:: Adult Immunizations not up to date. - Social history:: Smoking status: Patient reports the use of cigarette tobacco products, smokes one-half pack cigarettes per day. - Ebola Screening: : Patient negative for fever greater than or equal to 101.5 degrees Fahrenheit, and additional compatible Ebola Virus Disease symptoms Patient denies exposure to infectious person Patient denies travel to an Ebola-affected area in the 21 days before illness onset No symptoms or risks identified at this time. Screenin:40 Abuse screen: Denies threats or abuse. Denies injuries from another. Nutritional iw screening: No deficits noted. Tuberculosis screening: No symptoms or risk factors identified. Fall Risk None identified. Assessment: 16:00 General: Appears in no apparent distress. comfortable, Behavior is calm, cooperative. iw Pain: Denies pain. Neuro: Level of Consciousness is awake, alert, obeys commands, Oriented to person, place, time, situation, Moves all extremities. Full function. Cardiovascular: Patient's skin is warm and dry. Respiratory: Respiratory effort is even, unlabored, Respiratory pattern is regular, symmetrical. : Denies burning with urination, pain with urination urinary frequency. Derm: Skin is intact, is healthy with good turgor. Musculoskeletal: Range of motion: intact in all extremities. Vital Signs: 15:09 BP 127 / 89; Pulse 96; Resp 16; Temp 98.5; Pulse Ox 99% on R/A; Weight 68.04 kg; Height iw 5 ft. 11 in. (180.34 cm); 15:09 Body Mass Index 20.92 (68.04 kg, 180.34 cm) iw ED Course: 14:50 Patient arrived in ED. mr 15:07 Triage completed. iw 15:09 Arm band placed on. iw 15:39 Shawanda Hwang RN is Primary Nurse. iw 15:40 [facility] jr[facility] 15:40 Harjit Graves MD is Attending Physician. jr8 16:00 Patient has correct armband on for positive identification. iw 16:40 No provider procedures requiring assistance completed. Patient did not have IV access iw during this emergency room visit. Administered Medications: No medications were administered Outcome: 16:17 Discharge ordered by . jr8 16:40 Discharged to home ambulatory. iw 16:40 Condition: good 16:40 Discharge instructions given to patient, Instructed on discharge instructions, follow up and referral plans. Demonstrated understanding of instructions, follow-up care. 16:41 Patient left the ED. iw Signatures: Alecia Gomez mr Shawanda Hwang, RN RN iw Hung Mclaughlin PA PA jr8
--- NOTE | 2019-09-02 16:17 | EDPHYS ---
Physician Documentation [facility] Name: Fly Montes Age: 49 yrs Sex: Male : 1970 Arrival Date: 09/02/2019 Time: 14:50 Bed 11 Private MD: ED Physician Harjit Graves HPI: 09/02 16:01 This 49 yrs old Male presents to ER via Ambulatory with complaints of STD jr8 Exposure. 16:01 Patient with history of MAC and HIV. Stated that one of his partners tested positive jr8 for Gonorrhea. Concerned that he may have it. Denies back pain, abdominal pain, fevers, n/v/d, or dysuria at this time . Severity of symptoms: At their worst the symptoms were mild in the emergency department the symptoms are unchanged. The patient has experienced a previous episode. The patient has not recently seen a physician. Historical: - Allergies: 15:09 No Known Allergies; iw - Home Meds: 15:09 Truvada oral oral [Active]; Azithromycin Oral [Active]; Reyataz oral oral [Active]; iw Rifampin Oral [Active]; ethambutol oral oral [Active]; - PMHx: 15:09 HIV; iw - PSHx: 15:09 elbow; iw - Immunization history:: Adult Immunizations not up to date. - Social history:: Smoking status: Patient reports the use of cigarette tobacco products, smokes one-half pack cigarettes per day. - Ebola Screening: : Patient negative for fever greater than or equal to 101.5 degrees Fahrenheit, and additional compatible Ebola Virus Disease symptoms Patient denies exposure to infectious person Patient denies travel to an Ebola-affected area in the 21 days before illness onset No symptoms or risks identified at this time. ROS: 16:01 Eyes: Negative for injury, pain, redness, and discharge, ENT: Negative for injury, jr8 pain, and discharge, Neck: Negative for injury, pain, and swelling, Cardiovascular: Negative for chest pain, palpitations, and edema, Respiratory: Negative for shortness of breath, cough, wheezing, and pleuritic chest pain, Abdomen/GI: Negative for abdominal pain, nausea, vomiting, diarrhea, and constipation, Back: Negative for injury and pain, : Negative for injury, bleeding, discharge, and swelling, MS/Extremity: Negative for injury and deformity, Skin: Negative for injury, rash, and discoloration, Neuro: Negative for headache, weakness, numbness, tingling, and seizure. Exam: 16:01 Eyes: Pupils equal round and reactive to light, extra-ocular motions intact. Lids and jr8 lashes normal. Conjunctiva and sclera are non-icteric and not injected. Cornea within normal limits. Periorbital areas with no swelling, redness, or edema. ENT: Nares patent. No nasal discharge, no septal abnormalities noted. Tympanic membranes are normal and external auditory canals are clear. Oropharynx with no redness, swelling, or masses, exudates, or evidence of obstruction, uvula midline. Mucous membranes moist. Neck: Trachea midline, no thyromegaly or masses palpated, and no cervical lymphadenopathy. Supple, full range of motion without nuchal rigidity, or vertebral point tenderness. No Meningismus. Cardiovascular: Regular rate and rhythm with a normal S1 and S2. No gallops, murmurs, or rubs. Normal PMI, no JVD. No pulse deficits. Respiratory: Lungs have equal breath sounds bilaterally, clear to auscultation and percussion. No rales, rhonchi or wheezes noted. No increased work of breathing, no retractions or nasal flaring. Abdomen/GI: Soft, non-tender, with normal bowel sounds. No distension or tympany. No guarding or rebound. No evidence of tenderness throughout. Back: No spinal tenderness. No costovertebral tenderness. Full range of motion. Skin: Warm, dry with normal turgor. Normal color with no rashes, no lesions, and no evidence of cellulitis. MS/ Extremity: Pulses equal, no cyanosis. Neurovascular intact. Full, normal range of motion. Neuro: Awake and alert, GCS 15, oriented to person, place, time, and situation. Cranial nerves II-XII grossly intact. Motor strength 5/5 in all extremities. Sensory grossly intact. Cerebellar exam normal. Normal gait. Vital Signs: 15:09 BP 127 / 89; Pulse 96; Resp 16; Temp 98.5; Pulse Ox 99% on R/A; Weight 68.04 kg; Height iw 5 ft. 11 in. (180.34 cm); 15:09 Body Mass Index 20.92 (68.04 kg, 180.34 cm) iw MDM: 15:42 Patient medically screened. jr8 16:01 Data reviewed: vital signs, nurses notes, lab test result(s). Data interpreted: Pulse jr8 oximetry: on room air is 99 %. Interpretation: normal. Counseling: I had a detailed discussion with the patient and/or guardian regarding: the historical points, exam findings, and any diagnostic results supporting the discharge/admit diagnosis, the need for outpatient follow up, a family practitioner, to return to the emergency department if symptoms worsen or persist or if there are any questions or concerns that arise at home. 09/02 15:42 Order name: Urine Microscopic Only; Complete Time: 16:26 jr8 09/02 16:22 Order name: Urine Culture [facility] 09/02 15:42 Order name: Urine Dipstick-Ancillary (obtain specimen); Complete Time: 15:57 8 09/02 16:33 Order name: Urine Dipstick--Ancillary (enter results) bd Administered Medications: No medications were administered Disposition: 16:51 Co-signature as Attending Physician, Harjit Graves MD. rn Disposition: 09/02/19 16:17 Discharged to Home. Impression: STD Prophylaxis . - Condition is Stable. - Discharge Instructions: Sexually Transmitted Disease. - Medication Reconciliation Form, Thank You Letter, Antibiotic Education, Prescription Opioid Use form. - Follow up: Private Physician; When: 1 week; Reason: Recheck today's complaints, Continuance of care, Re-evaluation by your physician. - Problem is new. - Symptoms have improved. Signatures: Dispatcher [employer] Shawanda Velasquez RN RN iw Nieto, Roman, MD MD rn Roszak, Josh, PA PA jr8 Corrections: (The following items were deleted from the chart) 16:41 16:17 09/02/2019 16:17 Discharged to Home. Impression: STD Prophylaxis . Condition is iw Stable. Forms are Medication Reconciliation Form, Thank You Letter, Antibiotic Education, Prescription Opioid Use. Follow up: Private Physician; When: 1 week; Reason: Recheck today's complaints, Continuance of care, Re-evaluation by your physician. Problem is new. Symptoms have improved. jr8
[2019-09-02 16:18] LABS: Urine Bacteria 20-50 /HPF (NONE SEEN); Urine Culture Reflex Order REFLEXED; Urine RBC 20-50 /HPF (NONE SEEN)
[2019-09-02] MEDS ORDERED: AZITHROMYCIN 250 MG TAB ONE (16:35)
[2019-09-02] MEDS ORDERED: CEFTRIAXONE 250 MG/VIAL ONE (16:35)
[2019-09-02] MEDS ORDERED: LIDOCAINE 2% MPF 5 ML VIAL ONE (16:36)
[2019-09-02 16:44] LABS: Urine Blood 2+ (NEG); Urine Glucose NEGATIVE (NEG); Urine Protein NEGATIVE (NEG); Urine Specific Gravity 1.025 (1.005-1.030); Urine pH 5.5 (5.0-7.0)
[2019-09-02 22:57] VITALS: BP 127/89; TEMP 98.5; O2SAT 99
== END 2019-09-02 16:41 | disposition home or self-care (01) ==
LOC: ER 14:43
DX: Z29.9 Encounter for prophylactic measures, unspecified (principal); Z21 Asymptomatic human immunodeficiency virus [HIV] infection status; F17.210 Nicotine dependence, cigarettes, uncomplicated
CPT/HCPCS: 87088; 87086; 99281; J0696; 81003; 81015

== ENCOUNTER 2022-05-23 19:29 | Emergency (ER) | payer OTHER ==
--- OUTSIDE RECORDS SUMMARY | 2022-05-23 19:40 | XMS REPORT | Continuity of Care Document ---
:1970 Author Organization [facility] t Address [address] [place] [address] Support Name Relationship Address Phone MARINA MONTES Friend [address] [facility] [phone] [place] [phone] MARINA MONTES 122 [facility]. Unavailable [place] [phone] PATIENT, NO ONE ELSE PER Unavailable Unavailable Unavail able NO, ONE SA [address] [facility] [place] [address] NO, CONTACT SELF 122 [facility] [phone] [place] [phone] NO, ONE SA [address] [place] [address] Responsible Provider, Not V 1415 [facility] uite 110 [phone] [place] [address] Primary Caregiver O [address] [phone] [place] [address] declined O Unavailable Unavailable Kenrick Montes O 122 [facility] Unavaila [place] 758505 [place] [address] [place] [address] [phone] [place] [address] [place] [address] [place] [address] [phone] [place] [address] Ubaldo Powell V [address] [place] [address] [phone] [place], [place] [phone] KALEY SHAW Unavailable Unavailable [phone] Care Team Providers Name Role Phone PCP, PATIENT DOES NOT HAVE A Primary Care Physician Unavaila ble Jannette Gallegos DO Attending Clinician JANNETTE GALLEGOS Attending Clinician Unavailable Chester Montiel Attending Clinician Unavailable Lawrence Cannon Attending Clinician Unavailable Ubaldo Powell Attending Clinician [phone] Tiffanie Paulino Attending Clinician Unavailable Omaira Salgado Attending Clinician Unavailable Cristiana Luther Attending Clinician [phone] Aundrea Martinez Attending Clinician Unavailable Dale Donis Attending Clinician [phone] Milli Cristina Attending Clinician Unavailable Dania Faye Attending Clinician [phone] Desktop, [facility] Care Coordination Attending Clinician Unavailab Rodriguez MedAdherenceLois Attending Clinician [phone] Britany Elmore Attending Clinician Unavailable Chanel Nielson Attending Clinician [phone] Lizz Fox Attending Clinician Unavailable Rashida Lara Attending Clinician Unavailable Ilya MedAdherence, Lia Attending Clinician Unavailable Stella Rasmussen Attending Clinician Unavailable Jonnie MedAdherence, Supa Attending Clinician Unavailable Deedee MedAdherence,, Carin Attending Clinician Unavailable Judith Worthy Attending Clinician Unavailable Sailaja Snow Attending Clinician Unavailable Sina MedAdherence,, Nevin Attending Clinician Unavailable Fina Reese Attending Clinician Unavailable Angelia Villanueva Attending Clinician Unavailable Fina Reese Attending Clinician Unavailable Porfirio Whitmore Attending Clinician Unavailable Tyree Milligan Attending Clinician Unavailable Louann Dickson Attending Clinician [phone] Shanelle Diaz Attending Clinician [phone] Radha Worthy Attending Clinician Unavailable Sandra Yoder Attending Clinician Unavailable Marielena Nazario Attending Clinician Unavailable Aurelia Alfaro Attending Clinician Unavailable Dale MedAdherenceShoshana Attending Clinician UnavailJuanita Ricketts Attending Clinician Unavailable Jewel Murphy Attending Clinician Unavailable Status, Fax Attending Clinician Unavailable Karie Harrison Attending Clinician Unavailable Phu Pardo Attending Clinician [phone] Nguyen Simpson Attending Clinician Unavailable Jerri Marcum Attending Clinician Unavailable Luca Wilkins Attending Clinician [phone] Kt Delong Attending Clinician [phone] Charity Chavez Attending Clinician Unavailable Liliam Bates Attending Clinician Unavailable Grupo Griffith Attending Clinician Unavailable Myla Sorensen Attending Clinician Unavailable Taya Borwn Attending Clinician Unavailable Jannette Mo Attending Clinician Unavailable Lizzette Presley Attending Clinician [phone] Emerson Anderson Attending Clinician [phone] Monik Medrano Attending Clinician Unavailable Johana Estrada Attending Clinician Unavailable Tayler Stewart Attending Clinician [phone] Dorene Larios Attending Clinician Unavailable Darrius Heath Attending Clinician Unavailable Jannette Alfaro Attending Clinician [phone] Kaley Rosen Attending Clinician Unavailable Alejandrina Benitez Attending Clinician Unavailable Nathalie Worthy Attending Clinician Unavailable JANNETTE GALLEGOS Admitting Clinician Unavailable Chester Montiel Admitting Clinician Unavailable KNOW, DOES_NOT Admitting Clinician Unavailable Physician, No Primary or Family Admitting Clinician UnavailUbaldo Martinez Unavailable [phone] Dale Harman Unavailable [phone] Nisreen Chanel Unavailable [phone] Cristiana Luther Unavailable [phone] Emerson Anderson Unavailable [phone] Nathalie Worthy Unavailable Unavailable Payers Payer Name Policy Type Policy Number Effective Date Expiration Date S yasmine [facility] 11 [id number] 2019 2020 [facility] 101-200% 00:00:00 00:00:00 [facility] [id number] 2019 2020 Legacy 101-200% 00:00:00 00:00:00 [facility] [id number] 2018 2019 [facility] 101-200% 00:00:00 00:00:00 [place] [id number] 2017 2018 [facility] 101-200% 00:00:00 00:00:00 [facility] [id number] 2018 2018 [facility] 101-200% 00:00:00 00:00:00 [facility] Problems Condition Condition Condition Status Onset Resolution Last Treating Co mments Source Name Details Category Date Date Treatment Clinician Date Preventive Condition Active 2020-08-22 Pranav Powell health 1 16:04:11 Ubaldo rBandon care 00:00: ty 00 Health Dental Condition Active 2020-08-22 Eugene Powell egacy caries 03-17 15:42:44 Ubaldo Brandon 00:00: ty 00 Health STIMULANT Condition Active 2020-08-22 Raquel [facility] USE 10-31 15:42:44 zo, Communi DISORDER, 00:00: Dale ty AMPHETAMIN 00 Health E, SEVERE DEPRESSIVE Condition Active 2020-08-22 Raquel [facility] DISORDER, 10-31 15:42:44 azra Commu ni MAJOR, 00:00: Dale ty RECURRENT 00 Health EPISODE, MODERATE Substance Condition Active 2020-08-22 Nisreen [facility] abuse 16 15:42:44 Chanel Communi 00:00: ty 00 Health Anxiety Condition Active 2020-08-22 Nisreen, [facility] depression 10-25 15:42:44 Chanel Com marnie 00:00: ty 00 Health AIDS Condition Active 2020-08-22 Nisreen Avanidia 10-25 15:44:01 Chanel Communi 00:00: ty 00 Health Noncomplia Condition Active 2020-08-22 Pranav Luther nce 04-23 15:42:44 Cristiana Communi 00:00: ty 00 Health Family Condition Active 2020-08-22 Luna Luther discord 04-23 15:42:44 Cristiana Communi 00:00: ty 00 Health Constipati Condition Active 2021-04-13 Praanv Luther on 04-23 14:52:04 Cristiana Communi 00:00: ty 00 Health Thrombocyt Condition Active 2020-08-22 Pranav Luther openia 09-19 15:42:44 Cristiana Communi 00:00: ty 00 Health Hyperlipid Condition Active 2021-04-13 Pranav Luther emia 09-19 14:52:04 Cristiana Communi 00:00: ty 00 Health Transamina Condition Active 2021-04-13 Pranav Luther ses, 09-19 14:52:04 Cristiana Communi serum, 00:00: ty elevated 00 Health Overweight Condition Active 2017-082020-08-22 Pranav Luther 09-25 15:42:44 Cristiana Communi 00:00: ty 00 Health Syphilis Condition Active 2017-082020-08-22 Pranav Luther 08-13 15:44:01 Cristiana Communi 00:00: ty 00 Health Psoriasis Condition Active 2017-082021-04-13 Pranav Luther 08-13 14:52:04 Cristiana Communi 00:00: ty 00 Health Health Condition Active 2017-082020-08-22 Luna Luther care 08-13 15:42:44 Cristiana Communi maintenanc 00:00: ty e 00 Health Tobacco Condition Active 2017-082020-08-22 Eugene Luther egacy use 08-13 15:42:44 Cristaina Communi 00:00: ty 00 Health Mycobacter Condition Active 2017-082020-08-22 AndersonPranav ial 0-05 15:42:44 Emerson Communi disease 00:00: ty 00 Health Hepatitis Condition Active 2017-082020-08-22 Pranav Anderson C 0-05 15:44:01 Emerson Communi 00:00: ty 00 Health HIV Condition Active 2020-08-22 Pranav Worthy infection 05-02 15:44:01 Nathalie Commu ni 00:00: ty 00 Health Pneumonia Pneumonia Disease Active Uni vers 4-06 ity of 00:00: [address] HIV HIV Disease Recurre Methodi disease disease nce 1-10 st 00:00: Hospita 00 l Chronic Chronic Disease Recurre Method i hepatitis hepatitis nce 1-10 st C without C without 00:00: Hosp nupur hepatic hepatic 00 l coma coma Open wound Open wound Disease Active 2016-08 M ethodi of left of left 1-10 st elbow elbow 00:00: Hospita 00 l Mycobacter Mycobacter Disease Active 2016-08 M ethodi ium avium ium avium 0-10 st infection infection 00:00: Hosp nupur 00 l 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 0-10 st tis, left tis, left 00:00: Hosp nupur 00 l History of Past Illness Condition Condition Condition Status Onset Resolution Last Treating Co mments Source Name Details Category Date Date Treatment Clinician Date Tachycardi Condition Inactiv 2020-08-22 2020-08-22 Pranav Powell a e 3-16 00:00:00 16:04:11 Ubaldo Commun i 00:00: ty 00 Health Immunizati Condition Inactiv 2020-08-22 2020-08-22 Pranav Powell on update e 3-16 00:00:00 16:04:11 Ubaldo Com marnie 00:00: ty 00 Health Std Condition Inactiv 2017-2019-04-23 2019-04-23 Pranav Luther exposure e 2-14 00:00:00 09:11:18 Cristiana Comm uni 00:00: ty 00 Health Fitting/ad Condition Inactiv 2018-2018-12-05 2018-12-05 Pranav Luther justment, e 3-21 00:00:00 11:46:53 Cristiana Com marnie glasses/co 00:00: ty ntact 00 Health lenses Open angle Condition Inactiv 2018-2018-12-05 2018-12-05 Pranav Luther with e 2-14 00:00:00 11:46:53 Cristiana Commun i borderline 00:00: ty findings, 00 Health low risk, bilateral Presbyopia Condition Inactiv 2018-2018-12-05 2018-12-05 Pranav Luther - OU e 2-14 00:00:00 11:46:53 Cristiana Commun i 00:00: ty 00 Health Myopia, Condition Inactiv 2018-2018-12-05 2018-12-05 Pranav Luther right eye e 2-14 00:00:00 11:46:53 Cristiana Com marnei 00:00: ty 00 Health URI Condition Inactiv 2018-2018-12-05 2018-12-05 Pranav Luther e 2-08 00:00:00 11:46:53 Cristiana Commun i 00:00: ty 00 Health Cigarette Condition Inactiv 2017-2018-06-13 2018-06-13 Pranav Luther smoker e 0-05 00:00:00 14:06:48 Cristiana Commun i 00:00: ty 00 Health Positive Condition Inactiv 2017-2018-06-13 2018-06-13 Pranav Luther serology e 0-05 00:00:00 14:06:48 Cristiana Comm uni for 00:00: ty syphilis 00 Health Pre-proced Condition Inactiv 2017-2018-05-16 2018-05-16 AndersonPranav ural e 05-02 00:00:00 14:41:56 Emerson Commun i laboratory 00:00: ty examinatio 00 Health n Allergies, Adverse Reactions, Alerts Allergy Allergy Status Severity Reaction(s) Onset Inactive Treating Comm ents Source Name Type Date Date Clinician No Known DA Active U 2020-08 [facility] Allergie 08-13 Malone s 00:00: Healthc 00 are [facility] No Known DA Active U 2020-08 [facility] Allergie 08-13 Malone s 00:00: Healthc 00 are [facility] Asa-Acet Propensi Active Method i aminophe ty to 1-10 st n-Caff-B adverse 00:00: Hospita uffers reaction 00 l s to drug NO KNOWN Drug Active Univers ALLERGIE Class ity of S [facility] Social History Social Habit Start Date Stop Date Quantity Comments Source Exposure to Not sure University SARS-CoV-2 (event) [facility] drug use 2021-04-13 2021-04-13 Currently [facility] ty 11:17:04 11:17:04 Health alcohol use 2021-04-13 2021-04-13 Never [facility] ity 11:17:04 11:17:04 Health passive cigarette 2021-04-13 2021-04-13 No [facility] smoke exposure 11:17:04 11:17:04 Health if the patient is 2021-04-13 2021-04-13 No [facility] using/has used a 11:17:04 11:17:04 Health vaping item, Current, Former, Never Used, Not asked smoking, advice to 2021-04-13 2021-04-13 Yes [facility] quit 11:17:04 11:17:04 Health sexual orientation 2021-04-13 2021-04-13 [place] [facility] 11:17:04 11:17:04 Health social history 2021-04-13 2021-04-13 reviewed today [facility] reviewed E&M 11:17:04 11:17:04 Health assessment of health 2021-04-13 2021-04-13 Adequate [facility] literacy (NCQA PCM 11:17:04 11:17:04 Sarah sr 2014 Standards, 3C10) PHQ2 Questionairre 2021-04-13 2021-04-13 [facility] Score 11:17:04 11:17:04 Health tobacco use 2021-04-13 2021-04-13 Currently [facility] ity (cigarettes, cigar, 11:17:04 11:17:04 Sarah sr chew, pipe) social history E&M 2021-04-13 2021-04-13 Single. [facility] 11:17:04 11:17:04 Spouse/Partner/Sig Health nificant Other: Single . No children. He has an older brother. Not homeless. Born in [facility]. City: [facility]. State: [place]. Was living with parents until last night, helping taking care of 2 adopted kids (9 and 13 as of 2019), will be staying with a friendNot employed. Unemployed. Highest education level: associate's degree. SSDI. 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 Sex at : Male. Sexual orientation: Pickering. Gender identity: Male. Gender of partner(s): Male. Age of first sexual intercourse: 15. Sexually Active: Yes. Identifies as pickering male. Last sexually active in August, typically one partner. Uses condoms. Dx with HIV in 1995, not currently taking medications, last in August. drove is there any chance 2021-04-13 2021-04-13 No [facility] that you could be 11:17:04 11:17:04 Health ? albumin, serum 2021-04-03 2021-04-03 3.4 g/dL [employer] 16:26:00 16:26:00 Health time of call 2019-11-13 2019-11-13 11/13/2019 11:39 [facility] 11:38:56 11:38:56 AM Health Occupation #1 2019-10-26 2019-10-26 Unemployed [facility] unity 10:40:47 10:40:47 Health family support 2019-10-26 2019-10-26 No children. He [facility] 10:40:47 10:40:47 has an older Health brother. home/family 2019-10-26 2019-10-26 Was living with [facility] situation, 10:40:47 10:40:47 parents until last Health assessment night, helping taking care of 2 adopted kids (9 and 13 as of 2019), will be staying with a friend alcohol use, 2019-10-26 2019-10-26 few times per [facility] frequency 09:51:29 09:51:29 month Health current cigarette 2019-10-26 2019-10-26 [facility] packs per day 09:51:29 09:51:29 Health drug use, illicit, 2019-10-26 2019-10-26 [address] [facility] drug of choice 09:51:29 09:51:29 Health social history - 2019-10-26 2019-10-26 [facility] [place] [facility] 09:51:29 09:51:29 male. Last Health sexually active in August, typically one partner. Uses condoms. Dx with HIV in 1995, not currently taking medications, last in August. how often per day 2019-10-26 2019-10-26 current some day L [facility] the patient is using 08:49:33 08:49:33 vaper Heal vaping system patient considered 2018-05-16 2018-05-16 No [facility] to be homeless 13:32:43 13:32:43 Health Sex Ass[birth year] At [birth year] [employer] 00:00:00 00:00:00 Hospital Smoking Status Start Date Stop Date Source Unknown if ever smoked [facility] Smokes tobacco daily 2021-04-13 11:17:04 [facility] Medications Ordered Filled Start Stop Current Ordering Indication Dosage Frequency Signature Comments Components Source Medication Medication Date Date Medication? Clinician (SIG) Name Name norah 2020-08- No 10mL 10 mL, Uni vers ifenesin 2-15 12-15 Oral, ity of (ROBITUSSIN 04:15: 16:14 [place] 1 [place] 10-100 00 :00 dose, On Medic al mg/5 mL Tue Branch oral 07/25/21 solution 10 at 2215, mL INDRA levoFLOXaci 2020-08- No 750mg 750 mg, U nivers n 2-15 12-15 Oral, ONCE ity of (LEVAQUIN) 04:15: 16:14 NOW, 1 [place] tablet 750 00 :00 dose, On Medic al mg Tue Branch 07/25/21 at 2215, INDRA
Re ason for Anti-Infec tive: Documented Infection< br>Documen robert Infection Site: Respirator y
Durat ion of Therapy: Other (see Comments) sulfamethox 2020-08- No 1{tbl} 1 tablet, Univers azole-trime 2-15 12-15 Oral, ity of thoprim 04:15: 16:14 ONCE, 1 [place] (BACTRIM 00 :00 dose, On Medical DS) 800-160 Tue Branch mg per 07/25/21 tablet 1 at 2215, tablet INDRA
Re ason for Anti-Infec tive: Documented Infection< br>Documen robert Infection Site: Respirator y
Durat ion of Therapy: Other (see Comments) levoFLOXaci 2020-08 Yes [id number] 750mg Take 1 Univers n 2-14 tablet by ity of (LEVAQUIN) 00:00: mouth [place] 750 mg 00 every 24 Medical tablet (twenty-fo Branch ur) hours. benzonatate 2020-08 Yes [id number] 200mg Take 1 Univers 200 mg 2-14 capsule by ity of capsule 00:00: mouth 3 [place] 00 (three) Medical times Branch daily as needed for Cough. (SULFAMETHO Yes Ubaldo Take 1 L[place] cy XAZOLE-TRIM 04-13 [place] tablet by Communi ETHOPRIM) 00:00: mouth once ty 800-160 MG 00 a day Health TABS BIKTARVY Yes Ubaldo Take 1 [facility] (BICTEGRAVI - [place] tablet by Communi R-EMTRICITA 00:00: mouth once ty B-TENOFOV) 00 a day Health 50-200-25 antiviral MG TABS BIKTARVY 2020- No Ubaldo 1{Table 1xD Take 1 Leg acy (BICTEGRAVI 5-04 04-13 [place] t} tablet by Communi R-EMTRICITA 00:00: 00:00 mouth once ty B-TENOFOV) 00 :00 a day Health 50-200-25 MG TABS BACTRIM DS 2020- No Ubaldo 1{Table 2xD 1 tablet Legacy (SULFAMETHO -04-13 [place] t} by mouth Communi XAZOLE-TRIM 00:00: 00:00 twice a ty ETHOPRIM) 00 :00 day Health 800-160 MG TABS (QUETIAPINE 2019-08 Yes Dale 1{Table 1xD Take 1 Legacy FUMARATE) 2-31 Leoz-Lary t} tablet by Communi 100 MG TABS 00:00: zo mouth ty 00 every Health night (MODAFINIL) 2019-08 Yes Dale 1{Table 1xD Take 1 Legacy 100 MG TABS 2-16 Leoz-Lary t} tablet by Communi 00:00: zo mouth once ty 00 a day Health (RIFABUTIN) 2020- No Cristiana 2{Capsu 1xD TAKE TWO [facility] 150 MG CAPS 03-18 Ashkan le} CAPSULES C ommuni 00:00: 00:00 BY MOUTH ty 00 :00 ONCE DAILY Health (AMOXICILLI 2019- No 1{Capsu 3xD 1 by mouth Legacy N) 500 MG 03-17 le} 3 times a Comm uni CAPS 00:00: 00:00 day ty 00 :00 Health (ETHAMBUTOL 2020- No Cristiana tk 2.5 L egacy HCL) 400 MG 5-13 08-22 Ashkan tabs By Co mmuni TABS 00:00: 00:00 Mouth once ty 00 :00 d Health (AZITHROMYC 2019- No Chanel 1 tabs by Legacy IN) 500 MG -15 06-13 Shrikanth mouth Co mmuni TABS 00:00: 00:00 single ty 00 :00 dose Health MEPRON 2020- No Chanel 10mL 1xD Take 10ml Le gacy (ATOVAQUONE 3-16 08-22 Shrikanth once daily Communi ) 750 00:00: 00:00 ty MG/5ML SUSP 00 :00 Health (ESCITALOPR 2020- No 1{Table 1xD Take one start Legacy AM OXALATE) 3-16 04-10 t} tablet with half Communi 10 MG TABS 00:00: 00:00 daily a tablet t y 00 :00 daily for Health 2 weeks. (AZITHROMYC 2018-08 2020- No 1{Table 1xD TAKE ONE [facility] IN) 500 MG 0-08 04-10 t} TABLET BY Com marnie TABS 00:00: 00:00 MOUTH ONCE ty 00 :00 DAILY Health (CALCITRIOL 2020- No Cristiana Apply to Legacy ) 3 MCG/GM 04-15 Ashkan skin twice Communi OINT 00:00: 00:00 a day ty 00 :00 Health (RIFABUTIN) 2019- No 2{Capsu 1xD TAKE TWO Legacy 150 MG CAPS 04-15 le} CAPSULES Com marnie 00:00: 00:00 BY MOUTH ty 00 :00 ONCE DAILY Health (ETHAMBUTOL 2019- No take TWO L egacy HCL) 400 MG 04-15 AND Communi TABS 00:00: 00:00 ONE-HALF ty 00 :00 TABLETS BY Health MOUTH ONCE DAILY MEDROL 2018- No use as [facility] (METHYLPRED 09-25 directed Com marnie NISOLONE) 4 00:00: 00:00 ty MG TBPK 00 :00 Health AUGMENTIN 2018- No 1{Table 2xD 1 by mouth [facility] 875-125 MG 09-19 t} twice a Commu ni ORAL TABLET 00:00: 00:00 day ty 00 :00 Health (DOXYCYCLIN 2018- No 1{Capsu 2xD 1 by mouth Legacy E HYCLATE) 09-19 le} twice a Commu ni 100 MG CAPS 00:00: 00:00 day ty 00 :00 Health TRUVADA 2017-08- No Chanel 1{Table 1xD 1 by mouth [facility] (EMTRICITAB 08-13 Shrikanth t} daily C ommuni INE-TENOFOV 00:00: 00:00 ty IR DF) 00 :00 Health 200-300 MG TABS TIVICAY 2017-08- No Chanel 1{Table 1xD 1 By Mouth [facility] (DOLUTEGRAV 08-13 Shrikanth t} once a day Communi IR SODIUM) 00:00: 00:00 ty 50 MG TABS 00 :00 Health EPZICOM 2017-08- No 1{Table 1xD 1 By Mouth [facility] (ABACAVIR 08-13 t} Every Day Comm uni SULFATE-MARIE 00:00: 00:00 ty IVUDINE) 00 :00 Health 600-300 MG TABS CALCITRENE 2017-08- No Apply BID L egacy (CALCIPOTRI 08-13 to Communi DEVAN) 0.005 00:00: 00:00 affected ty % OINT 00 :00 area. Health BACTRIM DS 2020- No 1{Table 1xD Take one [facility] (SULFAMETHO 9-27 03-16 t} tablet by Co brett XAZOLE-TRIM 00:00: 00:00 mouth once ty ETHOPRIM) 00 :00 daily Health 800-160 MG TABS SULFAMETHOX Yes Take by Uni vers AZOLE/TRIME 4-06 mouth. ity of THOPRIM 16:48: [place] (BACTRIM 23 Medical ORAL) Branch AZITHROMYCI Yes Take by Uni vers N ORAL 4-06 mouth. ity of 16:48: [place] [address] Medical Branch dolutegravi Yes 50mg Take 50 mg Univers r (TIVICAY) 406 by mouth ity of 50 mg 16:48: daily. [place] [address] Medical Branch ethambutol Yes Take by Univ ers 400 mg 4-06 mouth ity of tablet 16:48: daily. [place] [address] Indication Medical s: Take Branch 2.5 tabs PO daily. rifabutin Yes 150mg Take 150 Uni vers 150 mg 4-06 mg by ity of capsule 16:48: mouth [place] [address] daily. Medical Branch CLARITHROMY Yes Take by Uni vers TIFFANI ORAL 4-06 mouth. ity of 16:48: [address] Branch SOMATROPIN Yes inject Unive rs (SEROSTIM 06 under the ity o f [place]) 16:48: skin. [place] [address] Medical Branch rifabutin Yes 300mg QD Take 300 Met hodi (MYCOBUTIN) 1-[address] 150 mg 08:16: mouth Hospita capsule 21 daily. l sulfamethox Yes 1{tbl} Q.5D Take 1 Me thodi azole-trime 1-[address] thoprim 08:16: mouth 2 Hospita (BACTRIM 21 (two) l DS) 800-160 times a mg per day. tablet ethambutol Yes 100mg QD Take 100 Me thodi (MYAMBUTOL) 1-[address] 100 MG 08:16: mouth Hospita tablet 21 daily. l ibuprofen 2018-0 Yes 800mg Q6H Take 800 Met hodi (ADVIL,MOTR 1-[address] IN) 800 MG 08:16: mouth Hospit a tablet 21 every 6 l (six) hours as needed for mild pain. azithromyci 2018- Yes 500mg QD Take 500 M ethodi n 1-[address] (ZITHROMAX) 08:16: mouth Hospi ta 500 MG 21 daily. l tablet Immunizations Ordered Immunization Filled Immunization Date Status Commen ts Source Name Name Moderna COVID-19 2021-04-12 Completed [facility] Vaccine Dose 2 00:00:00 Health Moderna COVID-19 2021-03-31 Completed [facility] Vaccine Dose 1 00:00:00 Health influenza, 2020-08-22 Completed [facility] ty unspecified 00:00:00 Health formulation Pneumovax 23 IM/SQ 2019-04-23 Completed [facility] [id number] 09:23:00 Health pneumped1 2018-12-05 Completed [facility] ty 10:49:49 Health mcv4 2018-12-05 Completed [facility] ty 10:49:49 Health flu vax 2018-12-05 Completed [facility] ty 10:49:49 Health Vital Signs Vital Name Observation Time Observation Value Comments Source Body height 2021-07-26 01:19:[address] [facility] Body weight 2021-07-26 01:19:[address] [facility] BMI 2021-07-26 01:19:00 23.71 kg/m2 [facility] Systolic blood 2021-07-26 01:00:00 119 mm[Hg] Univer sity [facility] Diastolic blood 2021-07-26 01:00:00 75 [facility]Hg[facility] 2021-07-26 01:00:00 106 /min [facility] Body temperature 2021-07-26 01:00:00 37.56 Paulina [facility] rate 2021-07-26 01:00:00 16 /min [facility] Oxygen saturation in 2021-07-26 01:00:00 97 /min University of Arterial blood by [facility] Pulse oximetry Branch blood pressure, 2021-04-13 11:17:04 80 mm[Hg] [facility] diastolic Health blood pressure, 2021-04-13 11:17:04 129 mm[Hg] [facility] systolic Health oxygen saturation, 2021-04-13 11:17:04 98 /min [facility] oximetry Health pulse rate 2021-04-13 11:17:04 102 /min [facility] Health temperature E&M 2021-04-13 11:17:04 98.1 [degF] [facility] Health weight E&M 2021-04-13 11:17:04 170 [lb_av] [facility] Health weight in kilograms 2021-04-13 11:17:04 77.27 kg L [facility] E& Health temperature site 2021-04-13 11:17:04 oral [facility] Health height in 2021-04-13 11:17:04 180.34 cm [facility] centimeters E&M Health blood pressure, 2020-08-22 15:34:51 86 mm[Hg] [facility] y [facility] diastolic Health blood pressure, 2020-08-22 15:34:51 130 mm[Hg] Legac y [facility] systolic Health oxygen saturation, 2020-08-22 15:34:51 98 /min [facility] pulse rate 2020-08-22 15:34:51 93 /min [facility] temperature E&M 2020-08-22 15:34:51 97.8 [degF] Legac y [facility] Health weight E&M 2020-08-22 15:34:51 161 [lb_av] [facility] weight in kilograms 2020-08-22 15:34:51 73.18 kg L [facility] E& Health height in 2020-08-22 15:34:51 180.34 cm [facility] centimeters E&M Health blood pressure, 2019-10-26 10:40:47 89 mm[Hg] Legac y [facility] diastolic Health blood pressure, 2019-10-26 10:40:47 124 mm[Hg] Legac y [facility] systolic Health pulse rate 2019-10-26 10:40:47 111 /min [facility] weight E&M 2019-10-26 10:40:47 153 [lb_av] [facility] weight in kilograms 2019-10-26 10:40:47 69.55 kg L [facility] E&M Health height in 2019-10-26 10:40:47 180.34 cm [facility] centimeters E&M Health blood pressure, 2019-10-26 08:49:33 95 mm[Hg] Legac y [facility] diastolic Health blood pressure, 2019-10-26 08:49:33 142 mm[Hg] [facility]ac y [facility] systolic Health oxygen saturation, 2019-10-26 08:49:33 98 /min [facility] oximetry Health pulse rate 2019-10-26 08:49:33 127 /min [facility] temperature E&M 2019-10-26 08:49:33 98.2 [degF] [facility] weight E&M 2019-10-26 08:49:33 153 [lb_av] [facility] weight in kilograms 2019-10-26 08:49:33 69.55 kg L [facility] E& Health height in 2019-10-26 08:49:33 180.34 cm [facility] centimeters E&M Health temperature site 2019-10-26 08:49:33 oral Lega [facility] oxygen saturation, 2019-04-23 08:40:09 98 /min [facility] oximetry Health blood pressure, 2019-04-23 08:40:09 92 mm[Hg] [facility]ac [facility] diastolic Health blood pressure, 2019-04-23 08:40:09 133 mm[Hg] [facility]ac y [facility] systolic Health respiratory rate E&M 2019-04-23 08:40:09 14 /min [facility] Health pulse rate 2019-04-23 08:40:09 95 /min [facility] temperature E&M 2019-04-23 08:40:09 98.1 [degF] [facility] weight E&M 2019-04-23 08:40:09 154 [lb_av] [facility] weight in kilograms 2019-04-23 08:40:09 70 kg L [facility] E& Health height in 2019-04-23 08:40:09 180.34 cm [facility] centimeters E&M Health temperature site 2019-04-23 08:40:09 oral Lega [facility] oxygen saturation, 2018-12-05 10:49:49 97 /min [facility] oximetry Health blood pressure, 2018-12-05 10:49:49 90 mm[Hg] Legac y [facility] diastolic Health blood pressure, 2018-12-05 10:49:49 132 mm[Hg] Legac y [facility] systolic Health respiratory rate E&M 2018-12-05 10:49:49 14 /min [facility] Health pulse rate 2018-12-05 10:49:49 79 /min [facility] temperature E&M 2018-12-05 10:49:49 98.1 [degF] [facility] weight E&M 2018-12-05 10:49:49 173 [lb_av] [facility] weight in kilograms 2018-12-05 10:49:49 78.64 kg L [facility] E& Health height in 2018-12-05 10:49:49 180.34 cm [facility] centimeters E&M Health temperature site 2018-12-05 10:49:49 oral Lega [facility] oxygen saturation, 2018-09-19 11:34:59 95 /min [facility] blood pressure, 2018-09-19 11:34:59 82 mm[Hg] Legac y [facility] diastolic Health blood pressure, 2018-09-19 11:34:59 136 mm[Hg] Legac y [facility] systolic Health respiratory rate E&M 2018-09-19 11:34:59 12 /min [facility] Health pulse rate 2018-09-19 11:34:59 96 /min [facility] temperature E&M 2018-09-19 11:34:59 98.0 [degF] [facility] weight E&M 2018-09-19 11:34:59 173 [lb_av] [facility] weight in kilograms 2018-09-19 11:34:59 78.64 kg L [facility] E& Health height in 2018-09-19 11:34:59 180.34 cm [facility] centimeters E&M Health temperature site 2018-09-19 11:34:59 oral Lega cy [facility] Health respiratory rate E&M 2018-07-25 10:35:48 12 /min [facility] 2018-07-25 10:35:48 103 /min [facility] temperature E&M 2018-07-25 10:35:48 98.4 [degF] [facility] weight E&M 2018-07-25 10:35:48 179 [lb_av] [facility] weight in kilograms 2018-07-25 10:35:48 81.36 kg L [facility] E& Health height in 2018-07-25 10:35:48 180.34 cm [facility] centimeters E&M Health temperature site 2018-07-25 10:35:48 oral Lega [facility] Health oxygen saturation, 2018-07-25 10:35:48 98 /min [facility] Health blood pressure, 2018-07-25 10:35:48 88 mm[Hg] Legac [facility] diastolic Health blood pressure, 2018-07-25 10:35:48 129 mm[Hg] Legac [facility] systolic Health oxygen saturation, 2018-06-13 12:04:15 97 /min [facility] Health blood pressure, 2018-06-13 12:04:15 84 mm[Hg] Legac [facility] diastolic Health blood pressure, 2018-06-13 12:04:15 117 mm[Hg] Legac [facility] systolic Health respiratory rate E&M 2018-06-13 12:04:15 12 /min [facility] Health pulse rate 2018-06-13 12:04:15 104 /min [facility] temperature E&M 2018-06-13 12:04:15 97.9 [degF] Legac [facility] Health weight E&M 2018-06-13 12:04:15 173 [lb_av] [facility] weight in kilograms 2018-06-13 12:04:15 78.64 kg L [facility] E& Health height in 2018-06-13 12:04:15 180.34 cm [facility] centimeters E&M Health temperature site 2018-06-13 12:04:15 oral Lega cy [facility] Health respiratory rate E&M 2018-05-16 13:32:43 16 /min [facility] blood pressure, 2018-05-16 13:32:43 82 mm[facility]Hg] [facility] blood [facility], 2018-05-16 13:32:43 124 mm[Hg] [facility] oxygen saturation, 2018-05-16 13:32:43 97 /min Luna rojasarminda [facility] oximetry Health pulse rate 2018-05-16 13:32:43 88 /min [facility] temperature E&M 2018-05-16 13:32:43 98.3 [degF] Legac [facility] Health height in 2018-05-16 13:32:43 180.34 cm [facility] centimeters E&M Health weight E&M 2018-05-16 13:32:43 178 [facility]lb[facility]av[facility] 2018-05-16 13:32:43 80.91 [facility] temperature site 2018-05-16 13:32:43 oral Lega cy [facility] Procedures Procedure Date / Time Performing Clinician Source Performed XR CHEST 1 VW 2021-07-26 01:58:21 Jannette Gallegos [facility] NOTICE OF PRIVACY 2021-07-26 00:42:18 Doctor Unassigned, No [facility] PRACTICES Name [facility] CONSENT/REFUSAL FOR 2021-07-26 00:41:47 Doctor Unassigned, No Un [facility] DIAGNOSIS AND TREATMENT Name [facility] Vaccines Ordered - Print 2020-08-22 15:48:30 Ubaldo Powell [facility] Consent/Declination Health Forms Addiction Recovery 2020-06-13 15:28:17 Pranav Harman Co mmunity Social Work [facility] Health Psychotherapy 30 2020-05-09 11:38:33 Dania Faye Comm [place] (16-37*) min - [id number] Health (with patient and/or family member) [facility] Brief Follow Up 2020-05-09 11:38:33 [facility] Brief Follow Up 2020-04-25 11:32:20 Dania Fayeacy C [facility]munity Health Psychotherapy 30 2020-04-25 11:31:47 Dania Faye Comm unity (16-37*) min - [id number] Health (with patient and/or family member) Psychotherapy 30 2020-02-22 16:23:07 Dania Faye Comm unity (16-37*) min - 43959 Health (with patient and/or family member) IB Brief Follow Up 2020-02-22 16:23:07 Dania Faye C ommunity Health Psychotherapy 30 2020-01-28 12:00:44 Dania Faye Comm unity (16-37*) min - 35373 Health (with patient and/or family member) IB Brief Follow Up 2020-01-28 12:00:21 Dania Fayeacy C ommunity Health Psychotherapy 30 2019-12-30 12:44:19 Dania Faye Comm unity (16-37*) min - 33337 Health (with patient and/or family member) IB Brief Follow Up 2019-12-30 12:44:19 Dania Faye [facility] Psychotherapy 30 2019-12-01 20:03:07 Dania Faye Comm unity (16-37*) min - 56652 Health (with patient and/or family member) IB Brief Follow Up 2019-12-01 20:02:51 Dania Faye [facility] Psychotherapy 30 2019-11-17 14:19:33 Dania Fayeacy Comm unity (16-37*) min - 85580 Health (with patient and/or family member) IB Brief Follow Up 2019-11-17 14:19:33 Dania Faye [facility] Diagnostic evaluation 2019-11-01 12:50:29 Pranav Harman Community with medical - [id number] [facility] Primary Care - Service 2019-10-30 11:25:22 Stella Rasmussen [facility] Health Primary Care - 2019-10-30 11:24:52 Stella Rasmussen [facility] Primary Care Medical 2019-10-30 11:24:52 Stella Rasmussen y [facility] Case Management Health Behavioral Health - 2019-10-26 15:52:32 Dania Faye Pranav Boothe ommunity Psychiatry Health IB Assessment - 2019-10-26 15:52:19 Dania Faye ommunity [employer] Health Diagnostic evaluation 2019-10-26 15:52:19 Dania Faye [facility] (no medical) - [id number] Health First Vx - Ix admin for 2019-10-26 15:27:10 Chanel Nielson [facility] Medicare patients Health Fluzone Quadrivalent IM 2019-10-26 15:27:10 [facility] Sy[facility] 0.5 mL Health () Primary Care SLW Meeting 2019-10-26 10:00:01 Tyree Milligan [facility] W Other CM Health Primary Care Service 2019-10-26 10:00:01 Tyree Milligan [facility] Linkage Health Vision 2019-10-26 09:33:48 Chanel Nielson Ar mmunity Health Integrated Behavioral 2019-10-26 09:28:33 Chanel Nielson [facility] Health Assessment ([facility]) Health Vaccines Ordered - Print 2019-10-26 09:24:06 Chanel Nielson [facility] Consent/Declination Health Forms First Vx - Ix admin for 2019-04-23 09:23:17 Cristiana Luther [facility] Medicare patients Health Pneumovax 23 Injection 2019-04-23 09:23:[address] [facility] Injectable 25 MCG/0.5ML Health Integrated Behavioral 2019-04-23 09:10:11 Cristiana Luther [facility] Health Assessment (IB) Health Vaccines Ordered - Print 2019-04-23 09:07:33 Cristiana Luther [facility] Consent/Declination Health Forms Contact Insp/Mod 2018-10-30 14:18:21 Luca [facility] unity (MODIFICAJ CONTACT LEN Health SPX SUPVJ ADAPTATION) Sphere, bif, plano to 2018-09-25 15:35:28 Jerri Marcum [facility] +/- 4.00d, per lens Health Frames, purchases sheryluxe 2018-09-25 15:35:07 MarcumJerri [facility] Health Oph US Dx Crnl 2018-09-25 15:27:56 [facility] to [facility] UNI/ Health COMPUTERIZED OPHTHALMIC 2018-09-25 15:27:47 Kt Delong [facility] IMAGING OPTIC NERVE Health Est Patient 2018-09-25 15:27:32 Kt Delong [facility] [id number] Contact Lens Fitting 2018-09-25 14:46:48 Luca Wilkins [facility] (RX&FITG C-LENS SUPVJ Health CRNL LENS OU XCPT APHK) New Patient Intermediate 2018-09-25 14:44:38 Luca Wilkins [facility] [id number] [facility] Primary Care Medical 2018-07-25 11:38:42 Stella Rasmussen y [facility] Case Management Health Dental - Internal 2018-07-25 11:21:36 Cristiana Luther Com [facility] Health Vision 2018-07-24 13:18:37 Cristiana Luther Commu nity Health Primary Care Medical 2018-07-01 13:06:47 Stella Rasmussen y [facility] Case Management [facility] Primary Care Medical 2018-06-19 15:54:57 Johana Estrada [facility] Case Management Health Vision 2018-06-13 12:36:01 Cristiana Luther Commu nity [facility] Primary Care Medical 2018-05-30 12:53:02 [facility] Case Management Health Primary Care Medical 2018-05-26 17:54:32 Johana Estrada [facility] Case Management Health Primary Care Medical 2018-05-20 08:54:48 [facility] Case [facility] Health Addiction Service Case 2018-05-16 16:18:50 Johana Estrada y Community Management Health Primary Care - Service 2018-05-16 16:18:45 Johana Estrada y Community Planning Comprehensive Health Primary Care - 2018-05-16 16:18:45 Johana Estrada Comm nity Assesment-Comprehensive Health [facility] Behavioral Health - 2018-05-16 16:18:45 Johana Estrada ommunity Psychiatry [facility] Primary Care Medical 2018-05-16 16:18:00 Johana Estrada Case Management Health Vision 2018-05-16 14:16:27 Emerson Anderson [facility] Venipuncture 2018-05-02 14:17:11 Emerson [facility] Plan of Care Planned Activity Planned Date Details Comments Source Future Scheduled 2022-04-12 HEPATITIS B VACCINES Met [facility] Test 21:45:29 (1 of 3 - 3-dose series) [code = HEPATITIS B VACCINES (1 of 3 - 3-dose series)] Future Scheduled 2022-04-12 COVID-19 VACCINE (#1) [facility] Test 21:45:29 [code = COVID-19 VACCINE (#1)] Future Scheduled 2022-04-12 COLONOSCOPY SCREENING [facility] Test 21:45:29 [code = COLONOSCOPY SCREENING] Future Scheduled 2022-04-12 SHINGLES VACCINES (1 Met [facility] Test 21:45:29 of 2) [code = SHINGLES VACCINES (1 of 2)] Future Scheduled 2022-04-12 INFLUENZA VACCINE [facility] Test 21:45:29 [code = INFLUENZA VACCINE] Encounters Start End Encounter Admission Attending Care Care Encounter Source Date/Time Date/Time Type Type Clinicians Facility Department ID 2021-06-13 Inpatient [facility] EZEKIEL [id number] [facility] 08:37:00 57 [facility] 2021-07-25 2021-07-25 Emergency JUAN Gallegos [id number] Univers 19:22:00 21:30:00 Jannette MURRAY [id number] niko [facility] [id number] [id number] [facility] 084 Branch 2021-07-25 2021-07-25 Emergency X JUAN GALLEGOS ERT [id number] Univers 19:22:00 21:30:00 JANNETTE pope [facility] 2021-06-24 2021-06-27 Inpatient Chester Villarreal [facility].01 [id number] [facility] 22:51:00 19:35:00 01 [facility] 2021-06-25 2021-06-25 Outpatient Chester Montiel HCANW REF [id number] [facility] 06:22:00 06:22:00 13 [facility] are [facility] 2021-06-13 2021-06-13 Emergency EM Lawrence Cannon [facility] EZE[facility]EL [id number] [facility] 08:40:00 11:30:00 68 [facility] are [facility] 2021-06-13 2021-06-13 Outpatient Lawrence Cannon [facility] [id number] [facility] 09:06:00 09:06:00 46 [facility] are [facility] 2021-04-13 2021-04-13 Office [facility] Enco unter/ Legacy 00:00:00 00:00:00 Visit Tiffanie Paulino [id number] Communi [id number] [facility] 2020-08-22 2020-08-22 Office [facility]IAN [facility] Encounter / Legacy 00:00:00 00:00:00 Visit Ubaldo [id number] Com marnie [id number] [facility] 2020-08-22 2020-08-22 Office [facility] Encounter / Legacy 00:00:00 00:00:00 Visit Ubaldo [id number] Com marnie [id number] [facility] 2020-08-22 2020-08-22 Office Ubaldo Powell [facility] Enco unter/ Legacy 00:00:00 00:00:00 Visit Omaira Salgado [id number] Communi [id number] [facility] 2020-08-15 2020-08-15 Office Cristiana Luther [facility] Enc ounter/ Legacy 00:00:00 00:00:00 Visit Aundrea Martinez [id number] Communi [id number] [facility] 2020-08-15 2020-08-15 Office JAYA Luther Encounter/ Legacy 00:00:00 00:00:00 Visit Cristiana [id number] Com marnie [id number] [facility] 2020-07-27 2020-07-27 Office [facility] Encounter/ Legacy 00:00:00 00:00:00 Visit Bienvenido [id number] Co brett Hunter [id number] ty Health 2020-07-27 2020-07-27 Office Jonnie [facility] Encounter/ Legacy 00:00:00 00:00:00 Visit Milli [id number] Co mmuni 057998 ty Health 2020-07-15 2020-07-15 Office [facility] Encounte r/ Legacy 00:00:00 00:00:00 Visit Dania [id number] Com marnie 021497 ty Health 2020-07-12 2020-07-12 Office Desktop, [facility] Care Coordination [facility] Encounter/ Legacy 00:00:00 00:00:00 Visit Lois Baer [id number] Britany Preciado 29600 0 ty Health 2020-07-12 2020-07-12 Office Chanel Nielson [facility] Encounter/ Legacy 00:00:00 00:00:00 Visit Lois Baer [id number] Communsierra [id number] ty Health 2020-06-20 2020-06-20 Office DominiqueSEBASTIAN gurrolaSA[facility] Encounter/ Legacy 00:00:00 00:00:00 Visit Lizz [id number] Com marnie 914639 ty Health 2020-06-17 2020-06-17 Office [facility]IAN [facility] Encounter/ Legacy 00:00:00 00:00:00 Visit Lizz [id number] Com marnie 446882 ty Health 2020-06-17 2020-06-17 Office BuffaloSEBASTIAN duvalSA[facility] Encounte r/ Legacy 00:00:00 00:00:00 Visit Dania [id number] Com marnie 841216 ty Health 2020-06-16 2020-06-16 Office Dominique, [facility] Encounter/ Legacy 00:00:00 00:00:00 Visit Lizz [id number] Com marnie 778870 ty Health 2020-06-13 2020-06-13 Office Dale Donis [facility] LC Encounter/ Legacy 00:00:00 00:00:00 Visit Rashida Lara [id number] Lizz Ritchie 121355 ty Health 2020-05-30 2020-05-30 Office JAYA Faye Encounte r/ Legacy 00:00:00 00:00:00 Visit Dania [id number] Com marnie 086058 ty Health 2020-05-17 2020-05-17 Office Cristiana Luther SEBASTIAN Enc ounter/ Legacy 00:00:00 00:00:00 Visit StephenbreeChanel solis [id number] Lia Ackerman 155934 ty 2020-05-09 2020-05-09 Office JAYA Faye Encounte r/ Legacy 00:00:00 00:00:00 Visit Dania [id number] Com marnie 997857 ty Health 2020-05-04 2020-05-04 Office JAYA Fox [facility] Encounter/ Legacy 00:00:00 00:00:00 Visit Lizz [id number] Com marnie 464073 ty Health 2020-05-04 2020-05-04 Office JAYA Fox [facility] Encounter/ Legacy 00:00:00 00:00:00 Visit Lizz [id number] Com marnie 514652 ty Health 2020-05-02 2020-05-02 Office JAYA Fox [facility] Encounter/ Legacy 00:00:00 00:00:00 Visit Lizz [id number] Com marnie 508283 ty Health 2020-04-28 2020-04-28 Office [facility] Encounter/ Legacy 00:00:00 00:00:00 Visit Lizz [id number] Com marnie 318787 ty Health 2020-04-26 2020-04-26 Office SEBASTIAN [facility] Encounter/ Legacy 00:00:00 00:00:00 Visit Stella [id number] C ommuni [id number] ty Health 2020-04-25 2020-04-25 Office Dania [facility] En counter/ Legacy 00:00:00 00:00:00 Visit Dale Donis [id number] Communi [id number] ty Health 2020-04-20 2020-04-20 Office Cristiana [facility] Enc ounter/ Legacy 00:00:00 00:00:00 Visit Supa Hernandez [id number] Communi [id number] ty Health 2020-04-20 2020-04-20 Office Cristiana Luther [facility] Enc ounter/ Legacy 00:00:00 00:00:00 Visit Deedee Jade,Carin [id number] Communi [id number] Health 2020-03-17 2020-03-17 Office Ubaldo Powell [facility] Enco unter/ Legacy 00:00:00 00:00:00 Visit Omaira Salgado [id number] Communi 926884 ty Health 2020-03-17 2020-03-17 Office [facility] Encounter / Legacy 00:00:00 00:00:00 Visit Ubaldo [id number] Com marnie [id number] Health 2020-03-17 2020-03-17 Office KeaganUbaldo duronSA[facility] Enco unter/ Legacy 00:00:00 00:00:00 Visit Omaira Salgado [id number] Communi [id number] Health 2020-02-29 2020-02-29 Office SEBASTIAN WorthySA[facility] Encount er/ Legacy 00:00:00 00:00:00 Visit Judith [id number] Com marnie 704147 ty Health 2020-02-22 2020-02-22 Office [facility]IAN [facility] Encounte r/ Legacy 00:00:00 00:00:00 Visit Dania [id number] Com marnie [id number] Health 2020-01-25 2020-01-25 Office [facility] Encounte r/ Legacy 00:00:00 00:00:00 Visit Dania [id number] Com marnie [id number] ty Health 2019-12-28 2019-12-28 Office [facility] Encounte r/ Legacy 00:00:00 00:00:00 Visit Dania [id number] Com marnie 542865 ty Health 2019-12-23 2019-12-23 Office [facility]IAN SnowSA[facility] Encounter/ Legacy 00:00:00 00:00:00 Visit Sailaja [id number] Com marnie 520786 ty Health 2019-12-23 2019-12-23 Office Leoz [facility] Encounter/ Legacy 00:00:00 00:00:00 Visit Bienvenido [id number] Co brett Hunter [id number] ty Health 2019-11-30 2019-11-30 Office [facility] Encounte r/ Legacy 00:00:00 00:00:00 Visit Dania [id number] Com marnie 046353 ty Health 2019-11-25 2019-11-25 Office [facility] Encount er/ Legacy 00:00:00 00:00:00 Visit Chanel [id number] Com marnie 320736 ty Health 2019-11-25 2019-11-25 Office [facility] Encount er/ Legacy 00:00:00 00:00:00 Visit Chanel [id number] Com marnie 857923 ty Health 2019-11-24 2019-11-24 Office Chanel Nielson [facility] Encounter/ Legacy 00:00:00 00:00:00 Visit Kim Nique [id number] Communi [id number] ty Health 2019-11-20 2019-11-20 Office Bakari [facility] Encounter/ Legacy 00:00:00 00:00:00 Visit Bienvenido [id number] Co brett Hunter [id number] ty Health 2019-11-18 2019-11-18 Office Fina Reese [facility] Encounter/ Legacy 00:00:00 00:00:00 Visit Dale Donis [id number] Communi [id number] ty Health 2019-11-16 2019-11-16 Office [facility] Encounte r/ Legacy 00:00:00 00:00:00 Visit Dania [id number] Com marnie 277071 ty Health 2019-11-13 2019-11-13 Office Roxane [facility] Encoun ter/ Legacy 00:00:00 00:00:00 Visit Angelia cooley [id number] Co mmuni [id number] ty Health 2019-10-26 2019-11-01 Office Dale Harman [facility] Encounter/ Legacy 00:00:00 00:00:00 Visit Fina Reese [id number] [facility] 428[facility] 2019-10-30 2019-10-30 Office [facility] Encounter/ Legacy 00:00:00 00:00:00 Visit Stella [id number] C ommuni [id number] ty Health 2019-10-30 2019-10-30 Office [facility] Encounter/ Legacy 00:00:00 00:00:00 Visit Stella [id number] C ommuni 883415 ty Health 2019-10-30 2019-10-30 Office SEBASTIAN WhitmoreSAINT [facility] Encounter/ Legacy 00:00:00 00:00:00 Visit Porfirio [id number] Com marnie 388806 ty Health 2019-10-26 2019-10-26 Office SEBASTIAN Nielson SEBASTIAN Encount er/ Legacy 00:00:00 00:00:00 Visit Chanel [id number] Com marnie 306881 ty Health 2019-10-26 2019-10-26 Office [facility]/ Legacy 00:00:00 00:00:00 Visit Tyree [id number] Com marnie 917088 ty Health 2019-10-26 2019-10-26 Office [facility] En counter/ Legacy 00:00:00 00:00:00 Visit Louann Dickson [id number] Shanelle Francois [id number] y Health 2019-10-26 2019-10-26 Office SEBASTIAN Nielson SEBASTIAN Encount er/ Legacy 00:00:00 00:00:00 Visit Chaenl [id number] Com marnie 657517 ty Health 2019-10-26 2019-10-26 Office SEBASTIAN Nielson SEBASTIAN Encount er/ Legacy 00:00:00 00:00:00 Visit Chanel [id number] Com marnie 450482 ty Health 2019-10-26 2019-10-26 Office Chanel Nielson [facility] Encounter/ Legacy 00:00:00 00:00:00 Visit Radha Worthy [id number] Sandra Fowler [id number] Angelia Villanueva Health 2019-10-22 2019-10-22 Office JAYA Nazario [facility] Encounter / Legacy 00:00:00 00:00:00 Visit Marielena [id number] C ommuni 530835 ty Health 2019-10-20 2019-10-20 Office WhitmoreJAYA miller Encounter/ Legacy 00:00:00 00:00:00 Visit Porfirio [id number] Com marnie 762709 ty Health 2019-10-20 2019-10-20 Office Cristiana [facility] ounter/ Legacy 00:00:00 00:00:00 Visit Chanel Nielson [id number] Porfirio Valenzuela 706235 ty Health 2019-10-14 2019-10-14 Office JAYA Luther [facility] Encounter/ Legacy 00:00:00 00:00:00 Visit Cristiana [id number] Com marnie 869727 ty Health 2019-10-14 2019-10-14 Office [facility]/ Legacy 00:00:00 00:00:00 Visit Cristiana [id number] Com marnie 583035 ty Health 2019-10-14 2019-10-14 Office [facility] En[facility]/ Legacy 00:00:00 00:00:00 Visit Cristiana [id number] Com marnie 257868 ty Health 2019-10-14 2019-10-14 [facility] En[facility]/ Legacy 00:00:00 00:00:00 Visit Cristiana [id number] Com marnie 919077 ty Health 2019-10-14 2019-10-14 Office AshkanJAYA [facility] Encounter/ Legacy 00:00:00 00:00:00 Visit Cristiana [id number] Com marnie 849123 ty Health 2019-10-14 2019-10-14 Office AshkanCristiana [facility] Enc ounter/ Legacy 00:00:00 00:00:00 Visit Chanel Nielson [id number] Aurelia Pham 883791 ty Health 2019-10-01 2019-10-01 Office JAYA Nazario LC Encounter / Legacy 00:00:00 00:00:00 Visit Marielena [id number] C ommuni 928758 ty Health 2019-07-14 2019-07-14 Office Cristiana Luther [facility]/ Legacy 00:00:00 00:00:00 Visit Shoshana Coombs [id number] [facility] 560529 ty Health 2019-05-20 2019-05-20 Office Cristiana Luther [facility]/ Legacy 00:00:00 00:00:00 Visit Shoshana Coombs [id number] [facility] 089976 ty Health 2019-05-19 2019-05-19 Office Cristiana Luther [facility]/ Legacy 00:00:00 00:00:00 Visit Shoshana Coombs [id number] [facility] 960289 ty Health 2019-05-11 2019-05-11 Office Cristiana Luther [facility]/ Legacy 00:00:00 00:00:00 Visit Sina Corderojo Chanellmeredith [id number] [facility] 535953 ty Health 2019-04-23 2019-04-23 Office Ashkan [facility]/ Legacy 00:00:00 00:00:00 Visit Cristiana [id number] Com marnie 821593 ty Health 2019-04-23 2019-04-23 Office Ashkan [facility]/ Legacy 00:00:00 00:00:00 Visit Cristiana [id number] Com marnie 828825 ty Health 2019-04-23 2019-04-23 Office Ashkan [facility]/ Legacy 00:00:00 00:00:00 Visit Cristiana [id number] Com marnie 058265 ty Health 2019-04-23 2019-04-23 Office Ashkan [facility]/ Legacy 00:00:00 00:00:00 Visit Cristiana [id number] Com marnie 141443 ty Health 2019-04-23 2019-04-23 Office Matthew Luthertom [facility]ter/ Legacy 00:00:00 00:00:00 Visit Sandra Yoder [id number] [facility] Porfirio Whitmore 659658 ty Health 2019-04-15 2019-04-15 Office Ashkan [facility]/ Legacy 00:00:00 00:00:00 Visit Cristiana [id number] Com marnie 914606 ty Health 2019-04-09 2019-04-09 Office JAYA Luther Encounter/ Legacy 00:00:00 00:00:00 Visit Cristiana [id number] Com marnie 829505 ty Health 2019-03-11 2019-03-11 Office JAYA Vogel Encounter / Legacy 00:00:00 00:00:00 Visit Juanita [id number] Com marnie 579577 ty Health 2019-02-26 2019-02-26 Office JAYA Murphy Encounter/ Legacy 00:00:00 00:00:00 Visit Jewel Boothe [id number] Com marnie 395972 ty Health 2018-12-25 2018-12-25 Office Arnulfo, Yunix JAYA CORTES Encoun ter/ Legacy 00:00:00 00:00:00 Visit [id number] Com marnie 457878 ty Health 2018-12-11 2018-12-11 Office JAYA Harrison Encounte r/ Legacy 00:00:00 00:00:00 Visit Karie [id number] Com marnie 463244 ty Health 2018-12-10 2018-12-10 Office Juanita Vogel En counter/ Legacy 00:00:00 00:00:00 Visit Cristiana Luther [id number] Phu Regan 444529 ty Health 2018-12-08 2018-12-08 Office JAYA Whitmore Encounter/ Legacy 00:00:00 00:00:00 Visit Porfirio [id number] Com marnie 950880 ty Health 2018-12-05 2018-12-05 Office JAYA Vogel Encounter / Legacy 00:00:00 00:00:00 Visit Juanita [id number] Com marnie 447816 ty Health 2018-12-05 2018-12-05 Office JAYA Luther Encounter/ Legacy 00:00:00 00:00:00 Visit Cristiana [id number] Com marnie 696880 ty Health 2018-12-05 2018-12-05 Office JAYA Luther Encounter/ Legacy 00:00:00 00:00:00 Visit Cristiana [id number] Com marnie 159009 ty Health 2018-12-05 2018-12-05 Office Cristiana Luther [facility]/ Legacy 00:00:00 00:00:00 Visit Porfirio Whitmore [id number] Communi 831264 ty Health 2018-12-05 2018-12-05 Office Ashkan JAYA [facility] Encounter/ Legacy 00:00:00 00:00:00 Visit Cristiana [id number] Com marnie 870206 ty Health 2018-12-05 2018-12-05 Office Cristiana Luther [facility] Enc ounter/ Legacy 00:00:00 00:00:00 Visit Porfirio Whitmore [id number] 81 Communi 185033 ty Health 2018-12-05 2018-12-05 Office Matthew Luthertom [facility]ter/ Legacy 00:00:00 00:00:00 Visit Chanel Nielson [phone] [facility] Juanita Vogel 063258 ty Porfirio Whitmore Robert 2018-12-01 2018-12-01 Office Status, Fax [facility] Encoun ter/ Legacy 00:00:00 00:00:00 Visit [id number] Com marnie 797344 ty Health 2018-12-01 2018-12-01 Office Status, Fax [facility] Encoun ter/ Legacy 00:00:00 00:00:00 Visit [id number] Com marnie 621742 ty Health 2018-11-21 2018-11-21 Office AshkanJAYA [facility] Encounter/ Legacy 00:00:00 00:00:00 Visit Cristiana [id number] Com marnie 694872 ty Health 2018-11-21 2018-11-21 Office CalvinJAYA [facility] Encounter / Legacy 00:00:00 00:00:00 Visit Nguyen [id number] Com marnie 170970 ty Health 2018-11-21 2018-11-21 Office Calvin [facility] Encounter / Legacy 00:00:00 00:00:00 Visit Nguyen [id number] Com marnie 785652 ty Health 2018-10-30 2018-10-30 Office Marcum, [facility] LC Encounter / Legacy 00:00:00 00:00:00 Visit Jerri [id number] Com marnie 974376 ty Health 2018-10-30 2018-10-30 Office Luca Wilkins [facility] Encoun ter/ Legacy 00:00:00 00:00:00 Visit [id number] Com marnie 676876 ty Health 2018-10-30 2018-10-30 Office Luca Wilkins [facility] Encoun ter/ Legacy 00:00:00 00:00:00 Visit [id number] Com marnie 532779 ty Health 2018-10-30 2018-10-30 Office Luca Wilkins [facility] Encoun ter/ Legacy 00:00:00 00:00:00 Visit Jossue Jerri [id number] Communi 498656 ty Health 2018-10-14 2018-10-14 Office Roxane [facility] Encoun ter/ Legacy 00:00:00 00:00:00 Visit shelia Angelia [id number] Co mmuni 062700 ty Health 2018-09-26 2018-09-26 Office Luca Wilkins [facility] Encoun ter/ Legacy 00:00:00 00:00:00 Visit [id number] Com marnie 126104 ty Health 2018-09-25 2018-09-25 Office JAYA Marcum [facility] Encounter / Legacy 00:00:00 00:00:00 Visit Jerri [id number] Com marnie 565877 ty Health 2018-09-25 2018-09-25 Office Baljeet [facility] Encounter/ Legacy 00:00:00 00:00:00 Visit Kt Harris [id number] Co mmuni 123344 ty Health 2018-09-25 2018-09-25 Office Baljeet [facility] Encounter/ Legacy 00:00:00 00:00:00 Visit Kt Harris [id number] Co mmuni 693963 ty Health 2018-09-25 2018-09-25 Office Kt Delong [facility] E ncounter/ Legacy 00:00:00 00:00:00 Visit Charity Chavez [id number] Communi 586413 ty Health 2018-09-25 2018-09-25 Office Luca Wilkins [facility] Encoun ter/ Legacy 00:00:00 00:00:00 Visit [id number] Com marnie 304438 ty Health 2018-09-25 2018-09-25 Office Luca Wilkins [facility] Encoun ter/ Legacy 00:00:00 00:00:00 Visit [id number] Com marnie 837430 ty Health 2018-09-25 2018-09-25 Office Luca Wilkins SEBASTIAN Encoun ter/ Legacy 00:00:00 00:00:00 Visit [id number] Com marnie 813523 ty Health 2018-09-25 2018-09-25 Office Luca Wilkins [facility] Encoun ter/ Legacy 00:00:00 00:00:00 Visit David Marcumie [id number] Communi 902595 ty Health 2018-09-25 2018-09-25 Office JAYA Luther Encounter/ Legacy 00:00:00 00:00:00 Visit Cristiana [id number] Com marnie 219019 ty Health 2018-09-19 2018-09-19 Office JAYA Bates Encounter/ Legacy 00:00:00 00:00:00 Visit Liliam [id number] Co mmuni 601396 ty Health 2018-09-19 2018-09-19 Office JAYA Bates Encounter/ Legacy 00:00:00 00:00:00 Visit Liliam [id number] Co mmuni 578324 ty Health 2018-09-19 2018-09-19 Office JAYA Luther Encounter/ Legacy 00:00:00 00:00:00 Visit Cristiana [id number] Com marnie 380947 ty Health 2018-09-19 2018-09-19 Office Cristiana Luther [facility] Enc ounter/ Legacy 00:00:00 00:00:00 Visit Chanel Nielson [id number] Communi Porfirio Whitmore 383586 ty Health 2018-09-18 2018-09-18 Office JAYA Griffith Encounter/ Legacy 00:00:00 00:00:00 Visit Grupo [id number] Com marnie 477714 ty Health 2018-09-05 2018-09-05 Office JAYA Luther Encounter/ Legacy 00:00:00 00:00:00 Visit Cristiana [id number] Com marnie 792734 ty Health 2018-09-05 2018-09-05 Office Ashkan [facility] Encounter/ Legacy 00:00:00 00:00:00 Visit Cristiana [id number] Com marnie 014664 ty Health 2018-09-05 2018-09-05 Office Ashkan [facility] Encounter/ Legacy 00:00:00 00:00:00 Visit Cristiana [id number] Com marnie 539839 ty Health 2018-08-26 2018-08-26 Office Edu [facility] Encount er/ Legacy 00:00:00 00:00:00 Visit Myla [id number] Com marnie 648915 ty Health 2018-08-18 2018-08-18 Office Stephanie [facility] Encounter/ Legacy 00:00:00 00:00:00 Visit Taya [id number] Com marnie 672252 ty Health 2018-08-01 2018-08-01 Office Ashkan [facility] Encounter/ Legacy 00:00:00 00:00:00 Visit Cristiana [id number] Com marnie 138317 ty Health 2018-07-30 2018-07-30 Office Chepe [facility] Encounte r/ Legacy 00:00:00 00:00:00 Visit Jannette [id number] Com marnie 338587 ty Health 2018-07-30 2018-07-30 Office Status, Fax [facility] Encoun ter/ Legacy 00:00:00 00:00:00 Visit [id number] Com marnie 014894 ty Health 2018-07-30 2018-07-30 Office Status, Fax [facility] Encoun ter/ Legacy 00:00:00 00:00:00 Visit [id number] Com marnie 188359 ty Health 2018-07-30 2018-07-30 Office Status, Fax [facility] Encoun ter/ Legacy 00:00:00 00:00:00 Visit [id number] Com marnie 546714 ty Health 2018-07-25 2018-07-25 Office Ashkan [facility] Encounter/ Legacy 00:00:00 00:00:00 Visit Cristiana [id number] Com marnie 895524 ty Health 2018-07-25 2018-07-25 Office Ashkan [facility] Encounter/ Legacy 00:00:00 00:00:00 Visit Cristiana [id number] Com marnie 336755 ty Health 2018-07-25 2018-07-25 Office JAYA Luther Encounter/ Legacy 00:00:00 00:00:00 Visit Cristiana [id number] Com marnie 922772 ty Health 2018-07-25 2018-07-25 Office Roxane CORTES Encoun ter/ Legacy 00:00:00 00:00:00 Visit Angelia cooley [id number] Co mmuni 046134 ty Health 2018-07-25 2018-07-25 Office JAYA Rasmussen Encounter/ Legacy 00:00:00 00:00:00 Visit Stella [id number] C ommuni 622771 ty Health 2018-07-25 2018-07-25 Office JAYA Luther Encounter/ Legacy 00:00:00 00:00:00 Visit Cristiana [id number] Com marnie 853333 ty Health 2018-07-25 2018-07-25 Office Cristiana Luther [facility] Enc ounter/ Legacy 00:00:00 00:00:00 Visit Lizzette Presley [id number] 56 Communi Porfirio Whitmore 235384 ty Health 2018-07-24 2018-07-24 Office JAYA Griffith Encounter/ Legacy 00:00:00 00:00:00 Visit Grupo [id number] Com marnie 932461 ty Health 2018-07-24 2018-07-24 Office Cristiana Luther Enc ounter/ Legacy 00:00:00 00:00:00 Visit Angelia Villanueva [id number] Communi 852840 ty Health 2018-07-24 2018-07-24 Office JAYA Anderson Encounter / Legacy 00:00:00 00:00:00 Visit Emerson [id number] Com marnie 270445 ty Health 2018-07-11 2018-07-11 Office JAYA Luther Encounter/ Legacy 00:00:00 00:00:00 Visit Cristiana [id number] Com marnie 145697 ty Health 2018-07-10 2018-07-10 Office Medrano, [facility] Encoun ter/ Legacy 00:00:00 00:00:00 Visit Monik [id number] Com marnie 044063 ty Health 2018-07-01 2018-07-01 Office Grady, [facility] LC Encounter/ Legacy 00:00:00 00:00:00 Visit Stella [id number] C ommuni 445997 ty Health 2018-06-24 2018-06-24 Office Haim, [facility] LC Encounter/ Legacy 00:00:00 00:00:00 Visit Porfirio [id number] Com marnie 572350 ty Health 2018-06-24 2018-06-24 Office Ashkan, [facility] LC Encounter/ Legacy 00:00:00 00:00:00 Visit Cristiana [id number] Com marnie 624644 ty Health 2018-06-19 2018-06-19 Office Sean, [facility] LC Encounter/ Legacy 00:00:00 00:00:00 Visit Johana [id number] Com marnie 716599 ty Health 2018-06-18 2018-06-18 Office Edy, [facility] LC Encounter/ Legacy 00:00:00 00:00:00 Visit Sailaja [id number] Com marnie 328455 ty Health 2018-06-16 2018-06-16 Office Status, Fax [facility] Encoun ter/ Legacy 00:00:00 00:00:00 Visit [id number] Com marnie 119627 ty Health 2018-06-16 2018-06-16 Office Status, Fax [facility] Encoun ter/ Legacy 00:00:00 00:00:00 Visit [id number] Com marnie 602815 ty Health 2018-06-16 2018-06-16 Office Status, Fax [facility] Encoun ter/ Legacy 00:00:00 00:00:00 Visit [id number] Com marnie 923980 ty Health 2018-06-16 2018-06-16 Office Status, Fax [facility] Encoun ter/ Legacy 00:00:00 00:00:00 Visit [id number] Com marnie 294196 ty Health 2018-06-16 2018-06-16 Office Status, Fax [facility] Encoun ter/ Legacy 00:00:00 00:00:00 Visit [id number] Com marnie 038187 ty Health 2018-06-13 2018-06-13 Office [facility] Legacy 00:00:00 00:00:00 Visit Cristiana [id number] Com marnie 727565 ty Health 2018-06-13 2018-06-13 Office Ashkan [facility]/ Legacy 00:00:00 00:00:00 Visit Cristiana [id number] Com marnie 514434 ty Health 2018-06-13 2018-06-13 Office Ashkan Cristiana [facility] Enc ounter/ Legacy 00:00:00 00:00:00 Visit Lizzette Presley [id number] 63 Tayler Crockett [id number] [facility] NelsonAngelia Sandoval Armando Dixon, Jacqueline 2018-06-11 2018-06-11 Office Ashkan [facility]/ Legacy 00:00:00 00:00:00 Visit Cristiana [id number] Com marnie 895242 ty Health 2018-06-11 2018-06-11 Office Ashkan [facility]/ Legacy 00:00:00 00:00:00 Visit Cristiana [id number] Com marnie 657815 ty Health 2018-06-10 2018-06-10 Office [facility]IAN [facility] er/ Legacy 00:00:00 00:00:00 Visit Britany [id number] Com marnie 775642 ty Health 2018-06-05 2018-06-05 Office JAYA Anderson Encounter / Legacy 00:00:00 00:00:00 Visit Emerson [id number] Com marnie 762910 ty Health 2018-05-29 2018-05-29 Office JAYA Estrada Encounter/ Legacy 00:00:00 00:00:00 Visit Johana [id number] Com marnie 945655 ty Health 2018-05-29 2018-05-29 Office JAYA Fox Encounter/ Legacy 00:00:00 00:00:00 Visit Lizz [id number] Com marnie 993407 ty Health 2018-05-29 2018-05-29 Office JAYA Estrada Encounter/ Legacy 00:00:00 00:00:00 Visit Johana [id number] Com marnie 915394 ty Health 2018-05-27 2018-05-27 Office Bracco, [facility] Encounter/ Legacy 00:00:00 00:00:00 Visit Johana [id number] Com marnei 447017 ty Health 2018-05-26 2018-05-26 Office Bracco, [facility] Encounter/ Legacy 00:00:00 00:00:00 Visit Johana [id number] Com marnie 809001 ty Health 2018-05-26 2018-05-26 Office Dominique, [facility] Encounter/ Legacy 00:00:00 00:00:00 Visit Lizz [id number] Com marnie 029076 ty Health 2018-05-20 2018-05-20 Office Bracco, [facility] Encounter/ Legacy 00:00:00 00:00:00 Visit Johana [id number] Com marnie 846690 ty Health 2018-05-19 2018-05-19 Office Bracco, [facility] Encounter/ Legacy 00:00:00 00:00:00 Visit Johana [id number] Com marnie 642761 ty Health 2018-05-16 2018-05-16 Office Anderson, [facility] Encounter / Legacy 00:00:00 00:00:00 Visit Emerson [id number] Com marnie 218097 ty Health 2018-05-16 2018-05-16 Office Anderson, [facility] Encounter / Legacy 00:00:00 00:00:00 Visit Emerson [id number] Com marnie 063970 ty Health 2018-05-16 2018-05-16 Office Anderson, [facility] Encounter / Legacy 00:00:00 00:00:00 Visit Emerson [id number] Com marine 886275 ty Health 2018-05-16 2018-05-16 Office Anderson, [facility] Encounter / Legacy 00:00:00 00:00:00 Visit Emerson [id number] Com marnie 304435 ty Health 2018-05-16 2018-05-16 Office Bracco, [facility] Encounter/ Legacy 00:00:00 00:00:00 Visit Johana [id number] Com marnie 538405 ty Health 2018-05-16 2018-05-16 Office Anderson, [facility] Encounter / Legacy 00:00:00 00:00:00 Visit Emerson [id number] Com marnie 757039 ty Health 2018-05-16 2018-05-16 Office Anderson, JAYA CORTES Encounter / Legacy 00:00:00 00:00:00 Visit Emerson [id number] Com marnie 127536 ty Health 2018-05-16 2018-05-16 Office Brapoojao, JAYA CORTES Encounter/ Legacy 00:00:00 00:00:00 Visit Johana [id number] Com marnie 681666 ty Health 2018-05-16 2018-05-16 Office Bracco, Johana [facility]IAN [facility] Enco unter/ Legacy 00:00:00 00:00:00 Visit Darrius Heath [id number] [facility] Jannette Alfaro [id number] [facility] Teribeth [facility] Lizz Fox 2018-05-16 2018-05-16 Office Anderson, Emerson [facility] Enco unter/ Legacy 00:00:00 00:00:00 Visit Kaley Rosen [id number] Communi [id number] [facility] 2018-05-16 2018-05-16 Office Anderson, SEBASTIAN LC Encounter / Legacy 00:00:00 00:00:00 Visit Emerson [id number] Com marnie 473780 ty Health 2018-05-16 2018-05-16 Office AndersonEmerson harris Enco unter/ Legacy 00:00:00 00:00:00 Visit Alejandrina Benitez [id number] Communi [id number] [facility] 2018-05-16 2018-05-16 Office AndersonEmerson LC Enco unter/ Legacy 00:00:00 00:00:00 Visit Chanel Nielson [phone] [id number] Communi Kaley Rosen [id number] Alejandrina Benitez [facility] NelsonAngelia Sandoval 2018-05-08 2018-05-08 Office AndersonEmerson mahan Enco unter/ Legacy 00:00:00 00:00:00 Visit Alejandrina Benitez [id number] Communi [id number] [facility] 2018-05-08 2018-05-08 Office AndersonEmerson mahanH [facility] Enco unter/ Legacy 00:00:00 00:00:00 Visit Alejandrina Benitez Mandie [id number] Commun 800241 [facility] 2018-05-02 2018-05-02 Office Anderson, [facility] Encounter / Legacy 00:00:00 00:00:00 Visit Emerson [id number] Com marnie [id number] [facility] 2018-05-02 2018-05-02 Office [facility] Encounter / Legacy 00:00:00 00:00:00 Visit Emerson [id number] Com marnie [id number] [facility] 2018-05-02 2018-05-02 [facility] Enco unter/ Legacy 00:00:00 00:00:00 Visit Chanel Nielson [id number] Aleksandr JonesNathalie murray 025023 [facility] Results Test Description Test Time Test Comments Results Result Comments Source RPR Qn+TP Abs (Reactive) 2022-05-22 07:09:00 Test Item Value Reference Range Interpretation Comme nts RPR, Quant. (test code = 1:2 See_Comment Med ical Director: Anthony Colon, [id number]) MDFacilSporterpilot Phon e: [Automated mess age] The system which generated this result transmitted ref erence range: NonRea<1:1. The reference range was not used to interpret this result as alondra l/abnormal. Treponema pallidum Reactive Non Reactive Medical D irector: Sanjai Antibodies (test code = Viviana emery MDFacility Phone: [phone]) [phone] Patient FastingCryptococcus Antigen, [id number] 07:09:00 Test Item Value Reference Range Interpretation Comments Cryptococcus Antigen, Negative Negative Medica l Director: Serum (test code = Jose Francisco sandoval, 627150) MDFacility Phon e: Patient FastingCD4/CD8 Ratio [id number] 07:09:00 Test Item Value Reference Range Interpretation Comments Absolute CD 4 20 /uL [phone] Medical Direct or: [place] (test code Anthony Yanez ue, = 574186) MDFacility Phon e: % CD 4 Pos. Lymph. 9.9 % 30.8-58.5 Medical D irector: (test code = Anthony Colon, 572890) MDFacility Phon e: Abs. CD 8 137 /uL [phone] Medical Directo r: Suppressor (test Anthony Tillman e, code = 432916) MDFacility Ph one: % CD 8 Pos. Lymph. 68.6 % 12.0-35.5 Medical D irector: (test code = Anthony Colon, 237478) MDFacility Phon e: CD4/CD8 Ratio 0.14 0.92-3.72 Medical Direct or: (test code = Anthony Colon, 110717) MDFacility Phon e: WBC (test code = 1.8 x10E3/uL 3.4-10.8 Doffer luis e: [id number]) Anthony Colon, MDFacility Phon e: RBC (test code = 3.35 x10E6/uL 4.14-5.80 Medical Di ulysses: [id number]) Anthony Colon, MDFacility Phon e: Hemoglobin (test 11.1 g/dL 13.0-17.7 Doffer luis e: code = 894928) Anthony Colon, MDFacility Phon e: Hematocrit (test 31.3 % 37.5-51.0 Doffer luis e: code = 169223) Anthony Colon, MDFacility Phon e: MCV (test code = 93 fL 79-97 Doffer luis e: 921923) Anthony Colon, MDFacility Phon e: MCH (test code = 33.1 pg 26.6-33.0 Doffer luis e: 227655) Anthony Yanezue, MDFacility Phon e: MCHC (test code = 35.5 g/dL 31.5-35.7 Medical Di ulysses: 620829) Anthony Colon, MDFacility Phon e: RDW (test code = 14.1 % 11.6-15.4 Doffer luis e: 456973) Anthony Colon MDFacility Phon e: Platelets (test 51 x10E3/uL 150-450 Platelet cou nt code = 609084) verified by examination of peripheral bloo d smear.Decreased . edical Director : Anthony MontoyaMD carloynFacility Phon e: Neutrophils (test 56 % Not Estab. Medical Di ulysses: code = 029060) Anthony Yanezmanav MDFacility Phon e: Lymphs (test code 10 % Not Estab. Medical Di ulysses: = 959925) Anthony Colon, MDFacility Phon e: Monocytes (test 16 % Not Estab. Medical Dire ctor: code = 203094) Anthony Colon, MDFacility Phon e: Eos (test code = 0 % Not Estab. Doffer luis e: 851421) Anthony Yanezmanav, MDFacility Phon e: Basos (test code = 2 % Not Estab. Medical D irector: [id number]) Anthony Colon, MDFacility Phon e: Immature Cells Note Medical Direc tor: (test code = Anthony Colon, [id number]) MDFacility Phon e: Neutrophils 1.3 x10E3/uL 1.4-7.0 Medical Directo r: (Absolute) (test Anthony Montoyaku e, code = [id number]) MDFacility Ph one: Lymphs (Absolute) 0.2 x10E3/uL 0.7-3.1 Medical Di ulysses: (test code = Anthony Colon, [id number]) MDFacility Phon e: Monocytes(Absolute 0.3 x10E3/uL 0.1-0.9 Medical D irector: ) (test code = Anthony Colon, [id number]) MDFacility Phon e: Eos (Absolute) 0.0 x10E3/uL 0.0-0.4 Medical Direc tor: (test code = Anthony Colon, [id number]) MDFacility Phon e: Baso (Absolute) 0.0 x10E3/uL 0.0-0.2 Medical Dire ctor: (test code = Anthony Colon, 717152) MDFacility Phon e: Hematology Note: Manual Medical Directo r: Comments: (test differential was Anthony whiteside, code = 326027) performed. MDFacility Ph one: Patient FastingImmature Cells (Note)2022-05-22 07:09:00 Test Item Value Reference Range Interpretation Comments Bands (test code = 16 % Not Estab. Medical D irector: Anthony Knight [id number] De Dios ty Patient FastingComp. Metabolic Panel (14)2022-05-22 07:09:00 Test Item Value Reference Range Interpretation Comments Glucose (test code = 83 mg/dL 70-99 Ple ase note 061633) reference inter fifi changeVending Technician: Eugenio Montes ty BUN (test code = 9 mg/dL 6-24 Doffer luis e: 446933) Deborah Montes Phon e: Creatinine (test code 0.73 mg/dL 0.76-1.27 Medica l Director: = 644178) Deborah Montes Phon e: eGFR (test code = 110 >59 Medical Di ulysses: 398930) mL/min/1.73 Anthony Colon, MDFacility Phon e: BUN/Creatinine Ratio 12 9-20 Vending Technician: (test code = 258699) Anthony Colon, MDFacility Phon e: Sodium (test code = 138 mmol/L 134-144 Vending Technician: 703603) Anthony Colon, MDFacility Phon e: Potassium (test code 3.8 mmol/L 3.5-5.2 Vending Technician: = 149640) Anthony Montoyakue, MDFacility Phon e: Chloride (test code = 106 mmol/L 96-106 [facility] Director: [id number]) Anthony Colon, MDFacility Phon e: Carbon Dioxide, Total 21 mmol/L 20-29 Medica Director: (test code = 627117) Anhtony Yanezue, MDFacility Phon e: Calcium (test code = 7.9 mg/dL 8.7-10.2 Vending Technician: 841761) Anthony Colon, MDFacility Phon e: Protein, Total (test 7.4 g/dL 6.0-8.5 Vending Technician: code = 714454) Anthony Colon, MDFacility Phon e: Albumin (test code = 3.0 g/dL 3.8-4.9 Vending Technician: 536073) Anthony Montoyakue, MDFacility Phon e: Globulin, Total (test 4.4 g/dL 1.5-4.5 [facility]: code = 584869) Anthony Yanezue, MDFacility Phon e: A/G Ratio (test code 0.7 1.2-2.2 Vending Technician: = 760752) Anthony Montoyakue, MDFacility Phon e: Bilirubin, Total 1.0 mg/dL 0.0-1.2 Doffer luis e: (test code = 072067) Anthony ColonUzaircilniko Phon e: Alkaline Phosphatase 125 IU/L 44-121 Vending Technician: (test code = 199470) Anthony ColonUzaircility Phon e: AST (SGOT) (test code 120 IU/L 0-40 Medica l Director: = 869771) Anthony ColonUzaircility Phon e: ALT (SGPT) (test code 61 IU/L 0-44 Medica l Director: = 590445) Anthony ColonUzaircilniko Phon e: Patient FastingRNA, Real Time PCR (Non-Graph)2022-05-22 07:09:00 Test Item Value Reference Range Interpretation Comments HIV-1 RNA by PCR 597857 copies/mL .The r eportable (test code = range for this assay 105530) is 20 to 10,000,000copie s HIV-1 RNA/mL. .Medical Direct or: Deborah Matthews Phon e: log10 HIV-1 RNA 5.568 Medical Dire ctor: (test code = icb30qorp/mL [place]jose Rodriguezum, 945585) Uzaircility Phon e: Patient FastingToxoplasma gondii Ab, [id number] 07:09:00 Test Item Value Reference Range Interpretation Comments Toxoplasma gondii See comment 0.0-7.1 Negative <7.2 Ab,IgG (test code = IU/mL Equivoca l 7.2 - 8.7 697782) Positive >8.7Medical Director: Deborah New i Phon e: Patient FastingCytomegalovirus (CMV) Ab, [id number] 07:09:00 Test Item Value Reference Range Interpretation Comments Cytomegalovirus (CMV) See comment 0.00-0.59 Nega tive <0.60 Ab, IgG (test code = U/mL Equivoc al 0.60 - 611585) 0.69 Positive >0.69Medical Director: Kathe Cleary [facility] Phon e: Patient FastingRPR, Rfx Qn RPR/Confirm [id number] 07:09:00 Test Item Value Reference Range Interpretation Comments RPR (test code = Reactive Non Reactive Doffer luis e: Anthony Knight 151533) Eugenio Colon ty Patient FastingChlamydia/GC [id number] 18:08:00 Test Item Value Reference Range Interpretation Comments Chlamydia trachomatis, Negative Negative Medic al Director: Anthony TALYA (test code = Eugene Colon MD Facility 782105) Phone: Neisseria gonorrhoeae, Negative Negative Medic al Director: Anthony BABIN (test code = Eugene Colon MD Facility 010884) Phone: Patient FastingSRC:URCMV DNA [id number] 01:17:00 Test Item Value Reference Range Interpretation Comments CMV DNA PCR Positive < 200 Negative CMV DNA detec robert.The (test code = IU/mL quantitative ra nge of CMVDNA) this assay is 2 00 to 1 millionIU/mL. HIV 1 RNA PCR [id number] 01:17:00 Test Item Value Reference Range Interpretation Comments HIV-[place] [address] See_Comment INFCE Resul t Units: (test code = copies/mLThe re portable HIVRNAPCRT) range for this assay is 20 to 10,000,000co pies HIV-1 RNA/mL. [Automa robert message] The system [employer]Beyond generated this result tra nsmitted reference range : (). The reference range was not used to interpr et this result as alondra l/abnormal. HIV-1 [id number] 01:17:00 Test Item Value Reference Range Interpretation Comments HIV-1 GENOTYPE (test Comment See_Comment Johnathan gen e amplicon code = [id number]) adequate f or sequencing [Automated mess age] The system which ge nerated this result tra nsmitted reference range : (). The reference range was not used to interpr et this result as normal/abnormal . HIV-1 GENOTYPE 2 (test Comment See_Comment The H IV-1 GenoSure(R) MG code = [id number]) for this s pecimen has beencompleted.P erformed At: [facility] [address] [place], [place] [address]Mrjodl ra Elbert VARGAS Ph:[phone] rformed At: INTL9 [employer] [address] [place], [place] [id number] Allred MD Ph:[phone] [Automated mess age] The system which ge nerated this result tra nsmitted reference range : (). The reference range was not used to interpr et this result as normal/abnormal . HIV GENE [id number] 01:17:00 Test Item Value Reference Range Interpretation Comments CLADE SUBSTYPE (test code = SEE HARD COPY CLADE) NNRTI MUTATIONS (test code = NNRTI) SUSTIVA EFAVIRANZ (test code = SUST) VIRAMUME NEVIRAPINE (test code = CHRISTI) ENTELENCE ETRAVINE (test code = INTE) EDURANT RELPIVIRINE (test code = EDUR) NRTI MUTATIONS (test code = NRTI) EPIVIR LAMIVUDINE (test code = EPIV) RETROVIR ZIDOVUDINE (test code = RETR) VIDEX DIDANOSINE (test code = VIDE) ZERIT STAVUDINE (test code = ZERI) ZIAGEN ABACAVIR (test code = ZIAG) VIREAD TENOFOVIR (test code = VIRE) EMTRIVA EMTRICITABINE (test code = EMTR) PI MUTATIONS (test code = PIMUT) LEXIVA FOSAMPRENAVIR (test code = LUCIE) CRIXIVAN INDINAVIR (test code = CRIX) INVIRASE SAQUNIVIR (test code = INVI) NORVIR RITONAVIR (test code = NORV) VIRACEPT NELFINAVIR (test code = VIRAC) KALETRA LOPINAVIR (test code = KALET) REYATAZ ATAZNAVIR (test code = REYA) REYATAZ-R ATAZNAVIR-R (test code = REYAR) APTIVUS-R TIPRANAVIR-R (test code = APTI) PREZISTA-R DARUNAVIR-R (test code = BENJAMÍN) RT MUTATIONS (test code = RTMUT) [place] MUTATIONS (test code = PRMUT) HCV RNA by PCR, Qn Rfx [id number] 20:08:00 Test Item Value Reference Range Interpretation Comments Hepatitis C See Final Medical Directo r: Quantitation (test Results IU/mL Elbert morrison, code = 781473) MDFacility Ph one: Test Information: See comment The quanti tative (test code = range of this a ssay 802259) is 15 IU/mL to 100 million IU/mL.Vending Technician: Kathe Cleary MDFacility Phon e: HCV Genotype (test To be performed Medica l Director: code = 926408) on this [address] ra, specimen. MDFacility Phon e: PDF (test code = . Doffer luis e: 867046) Abbi Deleon [facility] Patient Not FastingHCV RNA (International Units) (See Final Results)2021-11-11 20:08:00 Test Item Value Reference Range Interpretation Comments HCV RNA 07840000 IU/mL Medical Direc tor: (International [address] ra, Units) (test MDFacility Phon e: code = 246872) HCV log10 (test 7.706 log10 IU/mL Vending Technician: code = 077424) Uzair Hicks racility Phon e: Patient Not FastingHepatitis C [id number] 20:08:00 Test Item Value Reference Range Interpretation Comments Hepatitis C 1a Medical Directo r: Kathei Genotype (test CORKY Cleary acility code = 297683) Please note: (test See comment This test was developed code = 725250) and its perfo rmance characteristics determinedby [facility] [place]. It has not been cl eared or approved by the U.S. Food andDrug Administration. .The FDA has determi ilana that such clearance or approval is notnecessary. T his test is used for cli nical purposes. It sh ould not beregarded as investigational or for research.Medica l Director: Nuria New i ility Phone: Patient Not FastingRNA, Real Time PCR (Non-Graph)2021-11-11 20:08:00 Test Item Value Reference Range Interpretation Comments HIV-1 RNA by PCR 05696 copies/mL .The re portable (test code = range for this assay 017515) is 20 to 10,000,000copie s HIV-1 RNA/mL. .Medical Direct or: Deborah Matthews Phon e: log10 HIV-1 RNA 4.978 Medical Dire ctor: (test code = ido67yyeo/mL Jose Francisco Stoddard, 564783) Uzaircilniko Phon e: Patient Not FastingRPR, Rfx Qn RPR/Confirm [id number] 20:08:00 Test Item Value Reference Range Interpretation Comments RPR (test code = Reactive Non Reactive Doffer luis e: Anthony Knight 065883) Eugenio Colon ty Patient Not FastingRPR Qn+TP Abs (Reactive)2021-11-11 20:08:00 Test Item Value Reference Range Interpretation Comments RPR, Quant. (test code 1:2 See_Comment Medic al Director: Anthony = 019036) Manda Martin lity Phone: [Automated mess age] The system which ge nerated this result tra nsmitted reference range : NonRea<1:1. The reference range was not used to interpr et this result as normal/abnormal . Treponema pallidum Reactive Non Reactive Medical D irector: Antibodies (test code Elbert Cleary, = 189064) Deborah Phon e: Patient Not FastingCD4/CD8 Ratio [id number] 18:08:00 Test Item Value Reference Interpretation Comments Range Absolute CD 4 42 /uL 359-1519 Medical Direct or: Anthony May (test code Cynthia Martin DFacility = 827678) Phone: % CD 4 Pos. 8.3 % 30.8-58.5 Medical Directo r: Anthony Lymph. (test code Cynthia Martin DFacility = 406401) Phone: Abs. CD 8 306 /uL 109-897 Medical Directo r: Anthony Suppressor (test Eugene Colon MD Tilley code = 278250) % CD 8 Pos. 61.2 % 12.0-35.5 Medical Directo r: Anthony Lymph. (test code Cynthia Martin DFacility = 509785) Phone: CD4/CD8 Ratio 0.14 0.92-3.72 Medical Direct or: Anthony (test code = Manda Martin lity 251586) Phone: WBC (test code = 2.2 x10E3/uL 3.4-10.8 Doffer luis e: Anthony 755682) Manda Martin EMBA Medicalarminda Phone: RBC (test code = 3.56 x10E6/uL 4.14-5.80 Polychroma susana 367495) presentElliptoc ytes present.Vending Technician: Deborah Montes Phon e: Hemoglobin (test 12.2 g/dL 13.0-17.7 Doffer luis e: Anthony code = 825962) Uzair Martin Phone: Hematocrit (test 33.9 % 37.5-51.0 Doffer luis e: Anthony code = 209800) Uzair Martin Phone: MCV (test code = 95 fL 79-97 Doffer luis e: Anthony 414154) Manda Martin litarminda Phone: MCH (test code = 34.3 pg 26.6-33.0 Doffer luis e: Anthony 827228) Manda Martin litarminda Phone: MCHC (test code = 36.0 g/dL 31.5-35.7 Medical Di ulysses: Anthony 037154) Manda Martin EMBA Medicalarminda Phone: RDW (test code = 13.7 % 11.6-15.4 Doffer luis e: Anthony 324501) Manda Martin EMBA [facility]arm[facility] Phone: Platelets (test 71 x10E3/uL 150-450 Platelet cou nt verified code = 852930) by examinatio n of peripheral bloo d smear.Decreased .Vending Technician: Deborah Montes Phon e: Neutrophils (test 51 % Not Estab. Medical Di ulysses: Anthony code = 490466) Uzair Martin Phone: Lymphs (test code 25 % Not Estab. Medical Di ulysses: Anthony = 135752) Manda Martin EMBA [facility]arm[facility] Phone: Monocytes (test 14 % Not Estab. Medical Dire ctor: Anthony code = 830168) Uzair Martin Phone: Eos (test code = 8 % Not Estab. Doffer luis e: Anthony 641078) Manda Martin EMBA [employer] Phone: Basos (test code 1 % Not Estab. Doffer luis e: Anthony = 866445) Eugene RenatamanavManda EMBA Medicalarminda Phone: [phone] Neutrophils 1.1 x10E3/uL 1.4-7.0 Medical Directo r: Anthony (Absolute) (test MD Treva Martin code = 741818) Lymphs (Absolute) 0.5 x10E3/uL 0.7-3.1 Medical Di ulysses: Anthony (test code = Eugene Lindsaydomimanav Manda lity 851961) Phone: [phone] Monocytes(Absolut 0.3 x10E3/uL 0.1-0.9 Medical Di ulysses: Anthony e) (test code = Eugene MontoyaCORKY leon acility 104744) Phone: Eos (Absolute) 0.2 x10E3/uL 0.0-0.4 Medical Direc tor: Anthony (test code = Eugene Colon Manda lity 013819) Phone: Baso (Absolute) 0.0 x10E3/uL 0.0-0.2 Medical Dire ctor: Anthony (test code = Eugene Colon Manda lity 801301) Phone: Immature 1 % Not Estab. Medical Directo r: Manda Farooq (test code = Phone: 771556) Immature Grans 0.0 x10E3/uL 0.0-0.1 Medical Direc tor: Anthony (Abs) (test code Eugene Colon MD Facility = 861322) Phone: Hematology Note: Verified Medical Direc tor: Anthony Comments: (test by microscopic Cynthia Martin DFacility code = 644615) examination. Patient FastingComp. Metabolic Panel (14)2021-10-04 18:08:00 Test Item Value Reference Range Interpretation Comments Glucose (test code 90 mg/dL 65-99 Medical D irector: Anthony = 218516) Manda Martin Phone: BUN (test code = 13 mg/dL 6-24 Doffer luis e: Anthony 257759) Manda Martin Phone: Creatinine (test 0.72 mg/dL 0.76-1.27 Effectiv e September code = 405535) 2021 [facility] will begin reporti ng the 2020 CKD-EPI creatinine equa tion that estimates kidney function withou t a race variable.M edical Director: Eugenio Montes ty Phone: eGFR If NonAfricn 108 >59 Medical Di ulysses: Anthony Am (test code = mL/min/1.73 CORKY Martin acility 429546) Phone: eGFR If Africn Am 125 >59 In accor dance with (test code = mL/min/1.73 recommendations from 495351) the NKF-ASN Tas k force, [facility] is in the process of updating its eG FR calculation to the 2020 CKD-EPI creatinine equa tion that estimates kidney function withou t a race variable.M edical Director: Eugenio Montes ty Phone: BUN/Creatinine 18 9-20 Medical Direc tor: Anthony Ratio (test code = Deborah Martin 387591) Phone: Sodium (test code = 139 mmol/L 134-144 Vending Technician: Anthnoy 232130) Manda Martin lity Phone: Potassium (test 4.0 mmol/L 3.5-5.2 Medical Dire ctor: Anthony code = 366357) Uzair Martin cility Phone: Chloride (test code 106 mmol/L 96-106 Vending Technician: Anthony = 517213) Manda Martin lity Phone: Carbon Dioxide, 22 mmol/L 20-29 Medical Dire ctor: Anthony Total (test code = Deborah Martin 307039) Phone: Calcium (test code 8.8 mg/dL 8.7-10.2 Medical D irector: Anthony = 674631) Manda Martin lity Phone: Protein, Total 7.5 g/dL 6.0-8.5 Medical Direc tor: Anthony (test code = Manda Martin lity 910124) Phone: Albumin (test code 3.5 g/dL 3.8-4.9 Medical D irector: Anthony = 571024) Manda Martin EMBA Medicaly Phone: Globulin, Total 4.0 g/dL 1.5-4.5 Medical Dire ctor: Anthony (test code = Manda Martin lity 375439) Phone: A/G Ratio (test 0.9 1.2-2.2 Medical Dire ctor: Anthony code = 889263) Uzair Martin Phone: Bilirubin, Total 0.6 mg/dL 0.0-1.2 Doffer luis e: Anthony (test code = Manda Martin lity 569021) Phone: Alkaline 145 IU/L 44-121 Medical Directo r: Anthony Phosphatase (test Eugene Colon, Cynthia DFacility code = 301295) AST (SGOT) (test 97 IU/L 0-40 Doffer luis e: Anthony code = 341240) Uzair Martin Phone: ALT (SGPT) (test 68 IU/L 0-44 Doffer luis e: Anthony code = 505790) Uzair Martin Phone: Patient FastingLipid [id number] 18:08:00 Test Item Value Reference Range Interpretation Comments Cholesterol, Total (test 126 mg/dL 100-199 Med ica Director: code = 718002) Anthony MontoyaUzair leoncility Phon e: Triglycerides (test code 72 mg/dL 0-149 Med ica Director: = 058540) Anthony Knight Uzair Coloncility Phon e: HDL Cholesterol (test 46 mg/dL >39 Medica l Director: code = 213187) Anthony Knight MD DarleneFacility Phon e: VLDL Cholesterol Ariane 15 mg/dL 5-40 Vending Technician: (test code = 326159) AnthonyUzair Ramirezcility Phon e: LDL Chol Calc ([facility]) 65 mg/dL 0-99 Vending Technician: (test code = 186467) Deborah Montes Phon e: Patient [id number] 18:08:00 Test Item Value Reference Range Interpretation Comments Hep A Ab, Total Positive Negative Medical Dire ctor: Anthony (test code = Manda Martin lity 661284) Phone: HBsAg Screen Negative Negative Medical Directo r: Anthony (test code = Manda Martin lity 549344) Phone: Hep B Core Ab, Negative Negative Medical Direc tor: Anthony Tot (test code = MD Treva Martin 843984) Phone: Hep B Surface Ab, See comment Non React reyes: Qual (test code = Inconsiste nt with 431442) immunity, less than 10 mIU/mL Reactive : Consistent with immunity, great er than 9.9 mIU/mLMedic al Director: Alex Montesi ty Phone: Hep C Virus Ab 9.9 s/co ratio 0.0-0.9 Negative: < 0.8 (test code = Indeterminate: 0.8 - 497259) 0.9 Positive: > 0.9 . The CDC recomme nds that a positive HCV antibody result be followed up wit h a HCV Nucleic Acid Amplification t est (124045).Effe ctive October 23, 2021 HP5 will be made non-orderable. [facility] offers order code 605822 HAV , HBV, HCV.Doffer luis e: Deborah Montes Phon e: Patient FastingCt, Ng, Trich vag by [id number] 18:08:00 Test Item Value Reference Range Interpretation Comments Chlamydia by TALYA (test Negative Negative Medic al Director: Anthony code = 846200) Uzair Martin cility Phone: Gonococcus by TALYA (test Negative Negative Medi ariane Director: Anthony code = 696940) Uzair Martin [facility] [place] Phone: Trich vag by TALYA (test Negative Negative Medic al Director: Anthony code = 536938) Uzair Martinaarti Phone: Patient HrnfqhaO5BA,Qn,Bld and Red Cell [id number] 18:08:00 Test Item Value Reference Range Interpretation Comments G-6-PD, Quant 278 U/10E12 127-427 When decreased , G-6-PD, (test code = RBC Quant. values a re 817137) associated with acutehemolytic anemia when deficient indiv iduals are exposed to oxidativestress , such as with certain me dications (e.g., primaquine),inf ection, or ingestion of fa va beans.Caution: In patients with acute hemo lysis (e.g., abnormal ly low RBCvalues), nickie ting for G-6-PD may be f alsely normal because oldererythrocyt es with a higher enzyme d eficiency have been hemol yzed.Young erythrocytes an d reticulocytes h ave normal or near-normale nzyme activity. Alondra l values of G-6-PD may be m easured for severalweeks fo llowing a hemolytic event .Vending Technician: [facility]air [facility] Phon e: Patient FastingQuantiFERON-TB Gold [id number] 18:08:00 Test Item Value Reference Interpretation Comments Range QuantiFERON Incubation Medical Directo r: Anthony Incubation (test performed. Eugene Colon MD Facility code = 955490) QuantiFERON-TB See comment Negative Chemiluminesc ence Gold Plus (test immunoassay code = 951931) methodologyMe dical Director: Uzair Mcdanielcility Phon e: Patient FastingQuantiFERON-TB Gold Plus (Incubation performed.)2021-10-04 18:08:00 Test Item Value Reference Range Interpretation Comments QuantiFERON Criteria See comment The Luis Carlos ntiFERON-TB (test code = 891731) Gold Pl us result is determined by subtractingthe Nil value from eith er TB antigen (Ag) tu be. The mitogen tubeser ves as a control for t he test.Medical Di ulysses: Jose Francisco RodriguezUzair rhodescility Phon e: QuantiFERON TB1 Ag 0.11 IU/mL Medical D irector: Value (test code = [place] lum, 897966) MDFacility Phon e: QuantiFERON TB2 Ag 0.11 IU/mL Medical D irector: Value (test code = [place] lum, 363157) MDFacility Phon e: QuantiFERON Nil 0.11 IU/mL Medical Dire ctor: Value (test code = Jose Francisco Col lum, 468510) MDFacility Phon e: QuantiFERON Mitogen 1.31 IU/mL Vending Technician: Value (test code = Jose Francisco Col lum, 291567) MDFacility Phon e: Patient FastingRNA, Real Time PCR (Non-Graph)2021-10-04 18:08:00 Test Item Value Reference Range Interpretation Comments HIV-1 RNA by PCR 46939 copies/mL .The re portable (test code = range for this assay 081806) is 20 to 10,000,000copie s HIV-1 RNA/mL. .Medical Direct or: Jose Francisco StoddardMDFacility Phon e: log10 HIV-1 RNA 4.958 Medical Dire ctor: (test code = pot61xquw/mL Jose Francisco Stoddard, 047135) MDFacility Phon e: Patient FastingHemoglobin [id number] 18:08:00 Test Item Value Reference Range Interpretation Comments Hemoglobin A1c (test 5.2 % 4.8-5.6 . Pred iabetes: 5.7 - code = 414907) 6.4 Diabetes: >6.4 Glycemic contro l for adults with ian betes: <7.0Medical Dir luis e: Cynthia Montes DFacility Phone: Patient FastingToxoplasma gondii Ab, [id number] 18:08:00 Test Item Value Reference Range Interpretation Comments Toxoplasma gondii See comment 0.0-7.1 Negative <7.2 Ab,IgG (test code = IU/mL Equivoca l 7.2 - 8.7 341602) Positive >8.7Medical Director: Kathe Cleary MDFacility Phon e: Patient FastingHLA B5701 [id number] 18:08:00 Test Item Value Reference Range Interpretation Comments Result (test See comment The HLA-B*57:01 allele, code = associated with abacavir 990780) hyper-sensitivi ty, was not detected in thi s individual. Anegative resul t for HLA-B*57:01 gutierrez s not preclude thedevelopment of an allergic response to sienna cavir. TheHLA-B*57:01 genotype result should not subs titute forappropriate clinical vigilance and p atient management inab acavir containing randa mens (see Ziagen(R) or Ep zicom(TM)or Trizivir(R) Pre scribing Information). A dministration ofabacavir ther apy requires close observati on includingimmedi ate discontinuation of therapy should any sign s orsymptoms of hypersensitivit y develop.Referen ruperto:1. Ziagen (R), Epsicom(TM ), or Trizivir(R) Pre scribing information [facility] [place] Buy buy [place]Day[place], [place].2. Sabine S, et al . HLA-B*5701 screening for h yper- sensitivity to abacavir. N Eng J Med 2008; 358 : 568-579.3. Elise Marie, et al. High sensitivity of HLA-B*5701 a s a marker for immunologically confirmed abacavir hyper- sensitivity in white and black patients. Clin Infect Dis 2008 46:1111-8.HLA allele interpre tation for all loci based on I MGT/HLAdatabase version 3.44.0T his test was developed and i ts performance characteristics determined by [facility]. It has not been cleared or appr ovedby the Food and Drug Admini stration.HLA Lab CLIA ID Number [id number] .This test was perfor med using PCR (Polymerase Rosa in Reaction)/SSOP( Sequence Specific Oligon ucleotide Probes) techniq ue. SBT (SequenceBased Typing) and/or SSP (Sequence S pecific Primers) may be used ass upplemental methods when ne cessary. Please contact HLA [facility] tomerService at if you have any questions. . Di ulysses of HLA Laboratory Dr Reece Verdin, PhDMedical Dire ctor: Kt Verdin, PhDFacili ty Patient FastingRPR, Rfx Qn RPR/Confirm [id number] 18:08:00 Test Item Value Reference Range Interpretation Comments RPR (test code = Reactive Non Reactive Doffer luis e: Anthony Knight 238301) Eugenio Colon ty Patient FastingRPR Qn+TP Abs (Reactive)2021-10-04 18:08:00 Test Item Value Reference Range Interpretation Comments RPR, Quant. (test code 1:2 See_Comment Medic al Director: Anthony = 876662) Manda Martin lity Phone: [Automated mess [employer]] The system which ge nerated this result tra nsmitted reference range : NonRea<1:1. The reference range was not used to interpr et this result as normal/abnormal . Treponema pallidum Reactive Non Reactive Medical D irector: Antibodies (test code Elbert Cleary, = 879973) Facility Phon e: Patient FastingHIV Ab/p24 Ag with [id number] 18:08:00 Test Item Value Reference Range Interpretation Comments HIV Ab/p24 Ag See comment Non Reactive Please refer t o the Final Screen (test Interpretation. Results code = 953103) reactive byHI V Antigen/Antibod y EIA must be confirmed by the HIV testingalgorith m to be considered bam cative of a true HIV infect ion.Vending Technician: Deborah Montes Phon e: Patient FastingHIV 1/2 Ab Differentiation (Preliminary Reactive)2021-10-04 18:08:00 Test Item Value Reference Range Interpretation Comments HIV 1 Ab (test Reactive Non Reactive Medical Direc tor: Anthony code = 776322) Uzair Martin ciliaarti Phone: HIV 2 Ab (test Non Reactive Non Reactive Medical Direc tor: Anthony code = 218019) Uzair Martin Phone: Interpretation: See comment Laboratory e vidence (test code = consistent with HIV-1 143496) infection.Medic al Director: Anthony Knight MD DarleneFacility Phon e: Patient FastingUrinalysis, Routine [id number] 18:08:00 Test Item Value Reference Range Interpretation Comments Specific [place] 1.018 1.005-1.030 Doffer luis e: (test code = 267149) Anthony Knight Darlene MDFacility Phon e: pH (test code = 6.5 5.0-7.5 Medical Dire ctor: [id number]) Anthony Knight Darlene MDFacility Phon e: Urine-Color (test Yellow Yellow Medical Di ulysses: code = 027092) Anthony Knight Darlene MDFacility Phon e: Appearance (test code Clear Clear Medica l Director: = [id number]) Anthony Knight Darlene MDFacility Phon e: WBC Esterase (test Negative Negative Medical D irector: code = 063720) Anthony Knight Darlene MDFacility Phon e: Protein (test code = Negative Negative/Trace Medic al Director: [id number]) Anthony Knight Darlene MDFacility Phon e: Glucose (test code = Negative Negative Vending Technician: [id number]) Anthony L Darlene MDFacility Phon e: Ketones (test code = Negative Negative Vending Technician: [id number]) Anthony Eugene Colon MDFacility Phon e: Occult Blood (test Negative Negative Medical D irector: code = 598214) Deborah Montes Phon e: Bilirubin (test code Negative Negative Vending Technician: = [id number]) Uzair Montescilniko Phon e: Urobilinogen,Semi-Qn 0.2 mg/dL 0.2-1.0 Vending Technician: (test code = 198971) Deborah Montes Phon e: Nitrite, Urine (test Negative Negative Vending Technician: code = 324386) Deborah Montes Phon e: Microscopic See comment Microscopic not Examination (test indicated and not code = 070408) performed.Med ical Director: Eugenio Montes ty Phone: Patient FastingNONFASTING SRC:URCD4/CD8 [id number] 15:11:00 Test Item Value Reference Range Interpretation Comments [id number] RATIO (test 0.14 0.92-3.72 A code = [id number]) WBC (test code = 3.5 x10E3/uL 3.4-10.8 WBCLC) LYMPH # (test code = 0.5 x10E3/uL 0.7-3.1 A Perform ed At: HD LYLC#) [facility] [address] [id number] Anthony Knight MD Ph:[phone] PERCENT CD4 HELPER 7.9 % 30.8-58.5 A CELLS (test code = CD4P) ABSOLUTE CD4+ CELLS 40 /uL 359-1519 A (test code = CD4A) % CD8 (SUPPRESSOR 58.4 % 12.0-35.5 A T-CELLS) (test code = CD8P) ABSOLUTE CD8+ CELLS 292 /uL 109-897 (test code = CD8A) Covid 19 InHouse [id number] 13:52:00 Test Item Value Reference Range Interpretation Comments Covid 19 Negative Negative A negative resu lt does not InHouse NTX preclude the SA RS-COV-2 (test code = viralinfection and should not be [id number]) used as the so le basis forpatient barry gement decisions. Negative result s must becombined with clinical o bservations, patient history , andepidemiologi ariane information. Viral levels in clinicalsamples below the detec tion limit of the assay could karne d tonegative results. This t est was performed using the [employer] SmartTM COVID-19 PCRassay. This test was developed and i ts performancechar acteristics were determined by Cynthia brizuela [facility]. Thi s test has notbeen FDA titi ared or approved. This test is au thorized by theA under Em ergency Use Authorization(E UA). The EUA willremain in e ffect unless it is terminated o r revoked by FDA . Testing canelo eters have not been validated for screeningasympt omatic patients. This test was v alidated according to th e FDA's guidancedocumen t "Policy for Diagnostics nickie ting in LaboratoriesCer tified to Perform High Complexity Testing under CLIA". First test? NoEmployed in Healthcare? NoSymptomatic as defined by CDC? YesDate of Symptom Onset: [id number] due to COVID? NoIn ICU due to COVID? NoResident in a congregate care setting? Unknown? UnknownAge at collection: YRAPID PLASMA [id number] 07:14:00 Test Item Value Reference Range Interpretation Comments RAPID PLASMA REAGIN 1:2 See_Comment A Performe d At: HD [facility] (test code = RPR) [place] [address] [address] [place], [place] [id number] Anthony Knight MD Ph:[phone] ~~~~~~~~~~~~~~~ ~~~~~~~~~~~~ ~~~~~~~~~~~~~~~ ~~~~~~~REACT REYES RESULTS ARE VERIFIED BY REPEAT TESTING. SPECIMENS WITH REACTIVE R ESULTS ARE SENT TO REFER CE LAB FOR CONFIRMATION BY FTA.~~~~~~~~~~~ ~~~~~~~~~~~~ ~~~~~~~~~~~~~~~ ~~~~~~~~~~~P reviously repor robert result: Reactive SCREEN Edited by: GLEN on :0714 [Automated mess age] The system which ge nerated this result transmit robert reference range : NonRea<1:1. The reference range was not u sed to interpret this result as normal/abnormal . COMPREHENSIVE METABOLIC [id number] 03:39:00 Test Item Value Reference Range Interpretation Comments SODIUM (test code = 139 mmol/L 136-145 N Please n ote: New NA) Reference Range Sep 2020 POTASSIUM (test 3.8 mmol/L 3.5-5.1 N code = K) CHLORIDE (test code 112 mmol/L 98-107 H Please n ote: New = CL) Reference Range Sep 2020 CARBON DIOXIDE 21 mmol/L 20-31 N Please note: New (test code = CO2) Reference Range Sep 2020 GLUCOSE (test code 87 mg/dL 74-106 N Please no te: New = GLU) Reference Range Sep 2020 BLOOD UREA NITROGEN 9 mg/dL 9-23 N Please n ote: New (test code = BUN) Reference Range Sep 2020 GLOMERULAR >=60 max >60 Units are FILTRATION RATE estimate mL/min mL/min/1. 73m2 The (test code = GFR) estimated glomerular filtration rate is computed usingpatient ra ce, age (>18), sex, and serum creatinin e. If anyof the ne eded data elements a re missing the Laboratory denise ot compute an estimation of t he glomerular filtration rate . CREATININE (test 0.80 mg/dL 0.70-1.30 N Please note : New code = CREAT) Reference Rang e Sep 2020 TOTAL PROTEIN (test 6.1 g/dL 5.7-8.2 N Please n ote: New code = PROT) Reference Range Sep 2020 ALBUMIN (test code 2.9 g/dL 3.2-4.8 L Please no te: New = ALB) Reference Range Sep 2020 CALCIUM (test code 7.2 mg/dL 8.7-10.4 L Please no te: New = CA) Reference Range Sep 2020 BILIRUBIN TOTAL 0.4 mg/dL 0.3-1.2 N Please note: New (test code = BILT) Reference Range Sep 2020 SGOT/AST (test code 106 U/L <34 H Please n ote: New = AST) Reference Range Sep 2020 SGPT/ALT (test code 67 U/L 10-49 H Please n ote: New = ALT) Reference Range Sep 2020 ALKALINE 123 U/L 46-116 H Please note: Ne w PHOSPHATASE (test Reference Range Feb code = ALKP) 2020 CBC W/AUTO [id number] 03:24:00 Test Item Value Reference Range Interpretation Comments WHITE BLOOD CELL (test code = 2.1 x10 3/uL 4.8-10.8 L WBC) RED BLOOD CELL (test code = 3.62 x10 6/uL 4.70-6.10 L RBC) HEMOGLOBIN (test code = HGB) 11.3 g/dL 14.0-18.0 L HEMATOCRIT (test code = HCT) 33.5 % 42.0-52.0 L MEAN CELL VOLUME (test code = 92.5 fL 80.0-94.0 N MCV) MEAN CELL HGB (test code = MCH) 31.2 pg 27-31 H MEAN CELL HGB CONCENTRATION 33.7 G/DL 33-36.5 N (test code = MCHC) RED CELL DISTRIBUTION WIDTH 14.0 % 12.9-16.9 N (test code = RDW) PLATELET COUNT (test code = 70 x10 3/uL 150-440 L PLT) MEAN PLATELET VOLUME (test code 10.6 fL 8.9-12.4 N = MPV) NEUTROPHIL % (test code = NT%) 50.6 % 42.2-75.2 N LYMPHOCYTE % (test code = LY%) 26.1 % 20.5-51.1 N MONOCYTE % (test code = MO%) 12.6 % 1.7-9.3 H EOSINOPHIL % (test code = EO%) 9.2 % 0.0-7.0 H BASOPHIL % (test code = BA%) 0.5 % 0-2.5 N NEUTROPHIL # (test code = NT#) 1.05 x10 3/uL 1.80-7.70 L LYMPHOCYTE # (test code = LY#) 0.54 x10 3/uL 1.00-4.80 L MONOCYTE # (test code = MO#) 0.26 x10 3/uL 0.00-0.80 N EOSINOPHIL # (test code = EO#) 0.19 x10 3/uL 0.00-0.45 N BASOPHIL # (test code = BA#) 0.01 x10 3/uL 0.0-0.20 N - HEPA IMAG INCL [id number] 12:27:00 [facility] 1970 Sex: MPatient Name: KENRICK MONTES Unit No: [id number] EXAMS: CPT CODE: [id number] [place] [address] Examination: HIDA scan Reason for exam: Cholecystitis Location code: A 1 Comparison: None Discussion: After administration of 5.6 mCi of technetium 99 Mebrofenin, dynamic imaging of the right upper quadrant was performed. There is normal radiotracer uptake in the liver followed by excretion into thebiliary system which empties into the duodenum. Later filling of the gallbladder is seen after patient was given 2 mg of morphine intravenously. There is no evidence of biliary obstruction throughout the tract. Impression: Normal HIDA scan. at 1227 Reported and signed by: ANA KHALIL M.D. CC: Chester Montiel MD; Ubaldo Fernandez Jr, MD Technologist: Maria C Mims (N) Trscr Dt/Tm: 06/26/2021 (1227) by:[email or web address] Printed Date/Time: 06/26/2021 (6387) Name: KENRICK MONTES [facility] Phys: Ubaldo Champagne Jr, MD [address] : 1970 Age: 50 Sex: [place] [address] Loc: P.0603 1 Exam Date: 06/26/2021 Status: ADM IN PH: FAX: PAGE 1 Signed ReportCOMPREHENSIVE METABOLIC [id number] 05:32:00 Test Item Value Reference Range Interpretation Comments SODIUM (test code = 140 mmol/L 136-145 N Please n ote: New NA) Reference Range Sep 2020 POTASSIUM (test 3.5 mmol/L 3.5-5.1 N code = K) CHLORIDE (test code 111 mmol/L 98-107 H Please n ote: New = CL) Reference Range Sep 2020 CARBON DIOXIDE 22 mmol/L 20-31 N Please note: New (test code = CO2) Reference Range Sep 2020 GLUCOSE (test code 99 mg/dL 74-106 N Please no te: New = GLU) Reference Range Sep 2020 BLOOD UREA NITROGEN 8 mg/dL 9-23 L Please n ote: New (test code = BUN) Reference Range Sep 2020 GLOMERULAR >=60 max >60 Units are FILTRATION RATE estimate mL/min mL/min/1. 73m2 The (test code = GFR) estimated glomerular filtration rate is computed usingpatient ra ce, age (>18), sex, and serum creatinin e. If anyof the ne eded data elements a re missing the Laboratory denise ot compute an estimation of t he glomerular filtration rate . CREATININE (test 0.80 mg/dL 0.70-1.30 N Please note : New code = CREAT) Reference Rang e Sep 2020 TOTAL PROTEIN (test 5.7 g/dL 5.7-8.2 N Please n ote: New code = PROT) Reference Range Sep 2020 ALBUMIN (test code 2.8 g/dL 3.2-4.8 L Please no te: New = ALB) Reference Range Sep 2020 CALCIUM (test code 7.6 mg/dL 8.7-10.4 L Please no te: New = CA) Reference Range Sep 2020 BILIRUBIN TOTAL 0.4 mg/dL 0.3-1.2 N Please note: New (test code = BILT) Reference Range Sep 2020 SGOT/AST (test code 87 U/L <34 H Please n ote: New = AST) Reference Range Sep 2020 SGPT/ALT (test code 58 U/L 10-49 H Please n ote: New = ALT) Reference Range Sep 2020 ALKALINE 111 U/L 46-116 N Please note: Ne w PHOSPHATASE (test Reference Range Feb code = ALKP) 2020 CBC W/AUTO [id number] 05:11:00 Test Item Value Reference Range Interpretation Comments WHITE BLOOD CELL (test code = 2.3 x10 3/uL 4.8-10.8 L WBC) RED BLOOD CELL (test code = 3.46 x10 6/uL 4.70-6.10 L RBC) HEMOGLOBIN (test code = HGB) 10.9 g/dL 14.0-18.0 L HEMATOCRIT (test code = HCT) 32.8 % 42.0-52.0 L MEAN CELL VOLUME (test code = 94.8 fL 80.0-94.0 H MCV) MEAN CELL HGB (test code = MCH) 31.5 pg 27-31 H MEAN CELL HGB CONCENTRATION 33.2 G/DL 33-36.5 N (test code = MCHC) RED CELL DISTRIBUTION WIDTH 14.1 % 12.9-16.9 N (test code = RDW) PLATELET COUNT (test code = 71 x10 3/uL 150-440 L PLT) MEAN PLATELET VOLUME (test code 11.6 fL 8.9-12.4 N = MPV) NEUTROPHIL % (test code = NT%) 61.0 % 42.2-75.2 N LYMPHOCYTE % (test code = LY%) 19.9 % 20.5-51.1 L MONOCYTE % (test code = MO%) 11.3 % 1.7-9.3 H EOSINOPHIL % (test code = EO%) 6.5 % 0.0-7.0 N BASOPHIL % (test code = BA%) 0.4 % 0-2.5 N NEUTROPHIL # (test code = NT#) 1.41 x10 3/uL 1.80-7.70 L LYMPHOCYTE # (test code = LY#) 0.46 x10 3/uL 1.00-4.80 L MONOCYTE # (test code = MO#) 0.26 x10 3/uL 0.00-0.80 N EOSINOPHIL # (test code = EO#) 0.15 x10 3/uL 0.00-0.45 N BASOPHIL # (test code = BA#) 0.01 x10 3/uL 0.0-0.20 N COMPREHENSIVE METABOLIC [id number] 05:18:00 Test Item Value Reference Range Interpretation Comments SODIUM (test code = 138 mmol/L 136-145 N Please n ote: New NA) Reference Range Sep 2020 POTASSIUM (test 3.8 mmol/L 3.5-5.1 N code = K) CHLORIDE (test code 110 mmol/L 98-107 H Please n ote: New = CL) Reference Range Sep 2020 CARBON DIOXIDE 21 mmol/L 20-31 N Please note: New (test code = CO2) Reference Range Sep 2020 GLUCOSE (test code 85 mg/dL 74-106 N Please no te: New = GLU) Reference Range Sep 2020 BLOOD UREA NITROGEN 8 mg/dL 9-23 L Please n ote: New (test code = BUN) Reference Range Sep 2020 GLOMERULAR >=60 max >60 Units are FILTRATION RATE estimate mL/min mL/min/1. 73m2 The (test code = GFR) estimated glomerular filtration rate is computed usingpatient ra ce, age (>18), sex, and serum creatinin e. If anyof the ne eded data elements a re missing the Laboratory denise ot compute an estimation of t he glomerular filtration rate . CREATININE (test 0.80 mg/dL 0.70-1.30 N Please note : New code = CREAT) Reference Rang e Sep 2020 TOTAL PROTEIN (test 5.9 g/dL 5.7-8.2 N Please n ote: New code = PROT) Reference Range Sep 2020 ALBUMIN (test code 2.9 g/dL 3.2-4.8 L Please no te: New = ALB) Reference Range Sep 2020 CALCIUM (test code 7.7 mg/dL 8.7-10.4 L Please no te: New = CA) Reference Range Sep 2020 BILIRUBIN TOTAL 0.8 mg/dL 0.3-1.2 N Please note: New (test code = BILT) Reference Range Sep 2020 SGOT/AST (test code 68 U/L <34 H Please n ote: New = AST) Reference Range Sep 2020 SGPT/ALT (test code 60 U/L 10-49 H Please n ote: New = ALT) Reference Range Sep 2020 ALKALINE 98 U/L 46-116 N Please note: Ne w PHOSPHATASE (test Reference Range Sep code = ALKP) 2020 CBC W/AUTO [id number] 05:13:00 Test Item Value Reference Range Interpretation Comments WHITE BLOOD CELL (test code = 3.5 x10 3/uL 4.8-10.8 L WBC) RED BLOOD CELL (test code = 3.79 x10 6/uL 4.70-6.10 L RBC) HEMOGLOBIN (test code = HGB) 12.0 g/dL 14.0-18.0 L HEMATOCRIT (test code = HCT) 36.2 % 42.0-52.0 L MEAN CELL VOLUME (test code = 95.5 fL 80.0-94.0 H MCV) MEAN CELL HGB (test code = MCH) 31.7 pg 27-31 H MEAN CELL HGB CONCENTRATION 33.1 G/DL 33-36.5 N (test code = MCHC) RED CELL DISTRIBUTION WIDTH 13.9 % 12.9-16.9 N (test code = RDW) PLATELET COUNT (test code = 72 x10 3/uL 150-440 L PLT) MEAN PLATELET VOLUME (test code 10.9 fL 8.9-12.4 N = MPV) NEUTROPHIL % (test code = NT%) 68.3 % 42.2-75.2 N LYMPHOCYTE % (test code = LY%) 16.4 % 20.5-51.1 L MONOCYTE % (test code = MO%) 11.2 % 1.7-9.3 H EOSINOPHIL % (test code = EO%) 3.2 % 0.0-7.0 N BASOPHIL % (test code = BA%) 0.3 % 0-2.5 N NEUTROPHIL # (test code = NT#) 2.38 x10 3/uL 1.80-7.70 N LYMPHOCYTE # (test code = LY#) 0.57 x10 3/uL 1.00-4.80 L MONOCYTE # (test code = MO#) 0.39 x10 3/uL 0.00-0.80 N EOSINOPHIL # (test code = EO#) 0.11 x10 3/uL 0.00-0.45 N BASOPHIL # (test code = BA#) 0.01 x10 3/uL 0.0-0.20 N - US ABDOMEN [id number] 00:14:00 [facility] 1970 Sex: MPatient Name: KENRICK MONTES Unit No: [id number] EXAMS: CPT CODE: [id number] US ABDOMEN LTD 15663 Exam: Abdominal Sonogram Location: H 12 History: gallbladder distention, r/o cholecystitis Technique: A real-time transabdominal sonogram of the abdomen was performed. Findings: The gallbladder is empty.The gallbladder wall is slightly thickened. The liver is normal in size, shape and echotexture and me asures 15.3 cm in depth. The intra-and extrahepatic biliary tree is normal. The common bile duct measures 3 mm. The visualized pancreas and right kidney are normal. No nephrolithiasis, perinephric fluid collections or hydronephrosis is seen. The right kidney measures 10.6 x 5.9 x 5.9 cm. No free fluidis found in the abdomen. The visualized aorta and IVC are unremarkable. No incidental abdominal findings are noted. Impression: The gallbladder with a thickened wall may be related to biliary dyskinesia versus a calculus cholecystitis. HIDA scan is recommended. at 0014 Reported and signed by: SHERRON RICARDO M.D. CC: Jens José MD Technologist: JEFFERSON HINTON RDMS (AB) Probe: Trscr Dt/Tm: 06/25/2021 (0014) by:Jesica Printed Date/Time: 06/25/2021 (0018) Name: KENRICK MONETS [facility] Phys: Jens Johnson MD [address] : 1970 Age: 50 Sex: [place] [address] Loc:MARCO 5 Exam Date: 06/24/2021 Status: ADM IN PH: FAX: PAGE 1 Signed Report- CT ABD PELVIS [id number] 22:15:00 [facility] : 1970 Sex: MPatient Name: KENRICK MONTES Unit No: [id number] EXAMS: CPT CODE: [id number] CT ABD PELVIS W/CONT 68[address] CT abdomen and pelvis with IV contrast. Indication: Abdominal pain, AIDS Location: R16 Comparison: None Technique: CT images of the abdomen and pelvis were obtained from the diaphragm to the pubic symphysis after the administration of intravenous contrast contrast. Coronal reformats are provided. One or more of the following dose reduction techniques were used: Automated exposure control, adjustment of the mA and/or kV according to patient size, and/or utilization of iterative reconstruction technique. Findings: Lungs bases: Nonspecific right basilar density concerning for possible early consolidation and/or atelectasis Liver: Unremarkable. Gallbladder: Gallbladder distention with pericholecystic free fluid, recommend further evaluation ultrasound or HIDA scan Pancreas: Unremarkable. Spleen:Unremarkable. Adrenal glands: Unremarkable. Kidneys: Unremarkable. Bowel: No bowel obstruction. The appendix is surgically absent. Prominent colonic thickening is seen diffusely throughout with thumbpri nting fatty replacement and prominent bowel enhancement noted more distally these findings are concerning for an acute on chronic inflammatory or infectious process Peritoneum: No ascites or free air. Pelvis: Bladder wall thickening may reflect cystitis LAD: Multiple retroperitoneal nodes are seen measuring up to 1.1 cm with adjacent induration, nonspecific Skeletal: No acute fracture.. Impression: Nonspecific right basilar density concerning for possible early consolidation and/or atelectasis Gallbladder distention with pericholecystic free fluid, recommend further evaluation ultrasound or HIDA scan Prominent colonic thickening is seen diffusely throughout with thumbprinting fatty replacement andprominent bowel enhancement noted more distally these findings are concerning for an acute on chronic inflammatory or infectious process Bladder wall thickening may reflect cystitis Additional findings as detailed above Name: KENRICK MONTES [facility] Phys: Jens Johnson MD [address] : 1970 Age: 50 Sex: M [place] [address] Loc: P.ERS Exam Date: 06/24/2021 Status: REG ER PH: FAX: PAGE 1 Signed Report (CONTINUED) Patient Name: KENRICK MONTES AUnit No: [id number] EXAMS: CPT CODE: [id number] CT ABD PELVIS W/CONT 19196 (Continued) at 2215 Reported and signed by: GILBERT WOLF M.D. CC: Jens José MD Technologist: Toya Márquez CTDI: 10.8 DLP: 649.25 Trscr Dt/Tm: 06/24/2021 (221) by:[email or web address] Printed Date/Time: 06/24/2021 (2218) Name: NAJMAMACARIOKENRICK [facility] Phys: Jens Johnson MD [address] : 1970 Age: 50 Sex: M [place] [address] Loc: P.ERS Exam Date: 06/24/2021 Status: REG ER PH: FAX: PAGE 2 Signed ReportCOVID 19 INHOUSE [id number] 20:05:00 Test Item Value Reference Range Interpretation Comments COVID 19 INHOUSE NEGATIVE NEGATIVE Negative re sults, from AG (test code = patients wit h symptom onset [id number]) beyondfive days , should be treated as pres umptive and confirmationwit h a molecular assay, if kavita maloney for patientmanageme nt, may be performed. Nega tive results do not ruleout COVID-19 and should not be u sed as the sole basis fort reatment or patient managem ent decisions, includinginfect ion control decisions. Nega tive results should beconsid ered in the context of a pa tient's recent exposure s,history and the presence of clinical signs and sympt omsconsistent with COVID-19. [id number] 19:53:00 Test Item Value Reference Range Interpretation Comments TROPONIN-I (test < 2.5 pg/mL 38.73-80.22 L Please note : Units and code = TROPI) Reference Rang e have changedFeb 3, 2 021 BASIC METABOLIC [id number] 19:51:00 Test Item Value Reference Range Interpretation Comments SODIUM (test code 135 mmol/L 136-145 L Please not e: New = NA) Reference Range Sep 2020 POTASSIUM (test 3.9 mmol/L 3.5-5.1 N code = K) CHLORIDE (test 105 mmol/L 98-107 N Please note: New code = CL) Reference Range Sep 2020 CARBON DIOXIDE 25 mmol/L 20-31 N Please note: New (test code = CO2) Reference Range Sep 2020 GLUCOSE (test code 68 mg/dL 74-106 L Please no te: New = GLU) Reference Range Sep 2020 BLOOD UREA 9 mg/dL 9-23 N Please note: Ne w NITROGEN (test Reference Ran ge Feb code = BUN) 2020 GLOMERULAR >=60 max >60 Units are FILTRATION RATE estimate mL/min mL/min/1. 73m2 The (test code = GFR) estimated glomerular filtration rate is computed usingpatient ra ce, age (>18), sex, and serum creatinin e. If anyof the neede d data elements a re missing the Laboratory denise ot compute an estimation of t he glomerular filtration rate . CREATININE (test 1.00 mg/dL 0.70-1.30 N Please note : New code = CREAT) Reference Rang e Sep 2020 CALCIUM (test code 8.1 mg/dL 8.7-10.4 L Please no te: New = CA) Reference Range Sep 2020 LIVER FUNCTION [id number] 19:51:00 Test Item Value Reference Range Interpretation Comments TOTAL PROTEIN (test 6.5 g/dL 5.7-8.2 N Please n ote: New code = PROT) Reference Range Sep 2020 ALBUMIN (test code = 3.3 g/dL 3.2-4.8 N Please note: New ALB) Reference Range Sep 2020 BILIRUBIN TOTAL (test 1.1 mg/dL 0.3-1.2 N Please note: New code = BILT) Reference Range Sep 2020 BILIRUBIN DIRECT (test 0.6 mg/dL <0.3 H Pleas e note: New code = BILD) Reference Range Sep 2020 SGOT/AST (test code = 79 U/L <34 H Please note: New AST) Reference Range Sep 2020 SGPT/ALT (test code = 74 U/L 10-49 H Please note: New ALT) Reference Range Sep 2020 ALKALINE PHOSPHATASE 115 U/L 46-116 N Please note: New (test code = ALKP) Reference Range Sep 2020 LACTIC [id number] 19:45:00 Test Item Value Reference Range Interpretation Comments LACTIC ACID (test code = LACT) 1.30 mmol/L 0.5-2.0 N UA RFLX MICR CULT IF [id number] 19:44:00 Test Item Value Reference Range Interpretation Comments UA COLOR (test code = COLU) YELLOW DISCRIPT YELLOW UA APPEARANCE (test code = CLEAR DISCRIPT CLEAR APPU) UA GLUCOSE DIPSTICK (test NEGATIVE mg/dL NEGATIVE code = DGLUU) UA BILIRUBIN DIPSTICK (test NEGATIVE NEGATIVE code = BILU) UA KETONE DIPSTICK (test code NEGATIVE mg/dL NEGATIVE = KETU) UA SPECIFIC GRAVITY (test 1.025 1.005-1.030 code = SGU) UA BLOOD DIPSTICK (test code NEGATIVE NEGATIVE = TANVIR) UA PH DIPSTICK (test code = 6.0 5.0-9.0 NEFTALI) UA PROTEIN DIPSTICK (test NEGATIVE mg/dL NEGATIVE code = PROU) UA UROBILINOGEN DIPSTICK 0.2 mg/dL 0.2-1.0 (test code = URO) UA NITRITE DIPSTICK (test NEGATIVE NEGATIVE code = PAULA) UA LEUKOCYTE ESTERASE NEGATIVE NEGATIVE DIPSTICK (test code = LEUU) UA WBC (test code = WBCU) 0-2 #WBC/HPF 0-2 UA RBC (test code = RBCU) 0-2 #RBC/HPF 0-2 UA BACTERIA (test code = OCCASIONAL /HPF NONE-TRACE A BACU) UA SQUAMOUS CELLS (test code NONE SEEN /LPF NONE-TRACE = SQU) Indication for culture: Suprapubic PainCBC W/AUTO [id number] 19:40:00 Test Item Value Reference Range Interpretation Comments WHITE BLOOD CELL (test code = 5.2 x10 3/uL 4.8-10.8 N WBC) RED BLOOD CELL (test code = 4.45 x10 6/uL 4.70-6.10 L RBC) HEMOGLOBIN (test code = HGB) 13.8 g/dL 14.0-18.0 L HEMATOCRIT (test code = HCT) 41.4 % 42.0-52.0 L MEAN CELL VOLUME (test code = 93.0 fL 80.0-94.0 N MCV) MEAN CELL HGB (test code = MCH) 31.0 pg 27-31 N MEAN CELL HGB CONCENTRATION 33.3 G/DL 33-36.5 N (test code = MCHC) RED CELL DISTRIBUTION WIDTH 13.9 % 12.9-16.9 N (test code = RDW) PLATELET COUNT (test code = 87 x10 3/uL 150-440 L PLT) MEAN PLATELET VOLUME (test code 10.5 fL 8.9-12.4 N = MPV) NEUTROPHIL % (test code = NT%) 69.7 % 42.2-75.2 N LYMPHOCYTE % (test code = LY%) 15.1 % 20.5-51.1 L MONOCYTE % (test code = MO%) 13.8 % 1.7-9.3 H EOSINOPHIL % (test code = EO%) 0.6 % 0.0-7.0 N BASOPHIL % (test code = BA%) 0.4 % 0-2.5 N NEUTROPHIL # (test code = NT#) 3.59 x10 3/uL 1.80-7.70 N LYMPHOCYTE # (test code = LY#) 0.78 x10 3/uL 1.00-4.80 L MONOCYTE # (test code = MO#) 0.71 x10 3/uL 0.00-0.80 N EOSINOPHIL # (test code = EO#) 0.03 x10 3/uL 0.00-0.45 N BASOPHIL # (test code = BA#) 0.02 x10 3/uL 0.0-0.20 N - XR CHEST 1 [id number] 19:29:00 [facility] 1970 Sex: MPatient Name: KENRICK MONTES Unit No: [id number] EXAMS: CPT CODE: [id number] XR CHEST 1 V [id number] Exam: AP chest Location: H 12 History: CODE SEPSIS Comparison: 06/13/2021. Findings: The lungs are clear. No infiltrate or effusion is seen. The pulmonary vasculature is normal. The heart size is normal. The mediastinal silhouette is unremarkable. The bony thorax is intact. Impression: No acute disease. at 1929 Reported and signed by: SHERRON RICARDO M.D. CC: Jens José MD Technologist: Toya Wise Time: DAP (Gy m2): Air Kerma (mGy): Trscr Dt/Tm: 06/24/2021 (1928) by:ManjeetFC Printed Date/Time: 06/24/2021 (1931) Name: KENRICK MONTES [facility] Phys: Jens Johnson MD [address] :1970 Age: 50 Sex: [place] [address] Loc: P.ERS Exam Date: 06/24/2021 Status: REG ER PH: FAX: PAGE 1 Signed ReportUA RFLX MICR CULT IF [id number] 12:44:00 Test Item Value Reference Range Interpretation Comments UA COLOR (test code = YELLOW DISCRIPT YELLOW COLU) UA APPEARANCE (test code CLEAR DISCRIPT CLEAR = APPU) UA GLUCOSE DIPSTICK NEGATIVE mg/dL NEGATIVE (test code = DGLUU) UA BILIRUBIN DIPSTICK NEGATIVE NEGATIVE (test code = BILU) UA KETONE DIPSTICK (test NEGATIVE mg/dL NEGATIVE code = KETU) UA SPECIFIC GRAVITY 1.010 1.005-1.030 (test code = SGU) UA BLOOD DIPSTICK (test NEGATIVE NEGATIVE code = TANVIR) UA PH DIPSTICK (test 7.5 5.0-9.0 code = NEFTALI) UA PROTEIN DIPSTICK NEGATIVE mg/dL NEGATIVE (test code = PROU) UA UROBILINOGEN DIPSTICK 4.0 mg/dL 0.2-1.0 A (test code = URO) UA NITRITE DIPSTICK NEGATIVE NEGATIVE (test code = PAULA) UA LEUKOCYTE ESTERASE NEGATIVE NEGATIVE DIPSTICK (test code = LEUU) UA WBC (test code = Test not performed 0-2 WBCU) #WBC/HPF UA RBC (test code = Test not performed 0-2 RBCU) #RBC/HPF UA BACTERIA (test code = Test not performed NONE-TRACE BACU) /HPF UA SQUAMOUS CELLS (test Test not performed NONE-TRACE code = SQU) /LPF Indication for culture: Suprapubic PainCOVID 19 INHOUSE [id number] 11:00:00 Test Item Value Reference Range Interpretation Comments COVID 19 INHOUSE NEGATIVE NEGATIVE Negative re sults, from AG (test code = patients wit h symptom onset [id number]) beyondfive days , should be treated as pres umptive and confirmationwit h a molecular assay, if kavita maloney for patientmanageme nt, may be performed. Nega tive results do not ruleout COVID-19 and should not be u sed as the sole basis fort reatment or patient managem ent decisions, includinginfect ion control decisions. Nega tive results should beconsid ered in the context of a pa tient's recent exposure s,history and the presence of clinical signs and sympt omsconsistent with COVID-19. - CTA CHEST FOR [id number] 10:43:00 [facility] 1970 Sex: MPatient Name: KENRICK MONTES Unit No: [id number] EXAMS: CPT [place]: [id number] [place] [address] [place] angiogram chest with contrast (PE protocol) Location: A1 HISTORY: Chest pain, r/o dissection, pe,COMPARISON: None available TECHNIQUE: Multiple axial slices through the chest were obtained during 115mL of Isovue-370 contrast administration for evaluation of the pulmonary arteries. Coronal and sagittal maximum intensity projections were performed and evaluated. One or more of the following dose reduction techniques were used: Automated exposure control, adjustment of the mA and/or kV according topatient size, and/or utilization of iterative reconstruction technique. GFR: Greater than 60, Creatinine: 0.9mg/dL DLP: 320mGy-cm. FINDINGS: Pulmonary arteries: There is adequate opacification of the pulmonary arteries. No filling defects are identified within the pulmonary trunk, main or central segmental pulmonary arteries. No definite filling defects are seen within subsegmental branches. Thoracicaorta: No evidence for aneurysmal dilatation or dissection. Heart: Heart is normal in size. Small pericardial effusion is present. Mediastinum: Borderline enlarged mediastinal lymph nodes are identified which are nonspecific. No hilar adenopathy is evident. Lungs: There is volume loss and confluent airspace density within the lingula. Findings may represent focal atelectasis versus further pneumonitis. Further airspace densities are also noted within the dependent bilateral lower lobes. There is slight prominence of vessels to the periphery of the lungs which may indicate pulmonary venous hypertension. No interlobular septal thickening or further ground glass densities are identified. No discrete nodules or mass lesions are identified. Airway: The tracheobronchial tree is patent. Pleura: No effusions. Abdomen: The spleen is enlarged. There is nodularity of the liver. No discrete intrahepatic lesions are seen. There is moderate distention of the gallbladder. There is moderate stool within the visualized colon which may indicate constipation. Remaining visualized intra-abdominal contents are unremarkable. Name: KENRICK MONTES [facility] Phys: Lawrence Tesfaye MD [address] : 1970 Age: 50 Sex: M [place] [address] Loc: P.ERS Exam Date: 06/13/2021tatus: REG ER PH: FAX: PAGE 1 Signed Report (CONTINUED) Patient Name: KENRICK MONTES Unit No: [id number] EXAMS: CPT CODE: [id number] [place] [address] (Continued) Bones: Skeletal structures are unremarkable. IMPRESSION: 1. No CT evidence for pulmonary embolism, aortic dissection or aneurysm. 2.Confluent airspace density within the lingula may represent atelectasis versus further pneumonitis. There is also minimal dependent atelectasis in bilateral lower lobes. 3. Prominence of pulmonary vessels which may indicate pulmonary venous hypertension. 4. Splenomegaly. 5. Nodularity of the liver suggesting hepatic cirrhosis. at 1043 Reported and signed by: VIJAYA PEREZ M.D. CC: Lawrence Cannon MD Technologist: Michael Anaya; LOIS CHRISTIANSEN RT (R) CTDI: 61.14 DLP: 320 Trscr Dt/Tm: 06/13/2021 (1043) by:[email or web address] Printed Date/Time: 06/13/2021 (1046) Name: KENRICK MONTES [facility] Phys: Lawrence Tesfaye MD [address] DOB: 1970 Age: 50 Sex: M [place] [address] Loc: P.ERS Exam Date: 06/13/2021 Status: REG ER PH: FAX: PAGE 2 Signed ReportCBC W/AUTO [id number] 10:28:00 Test Item Value Reference Range Interpretation Comments WHITE BLOOD CELL (test code = 3.1 x10 3/uL 4.8-10.8 L WBC) RED BLOOD CELL (test code = 3.84 x10 6/uL 4.70-6.10 L RBC) HEMOGLOBIN (test code = HGB) 12.0 g/dL 14.0-18.0 L HEMATOCRIT (test code = HCT) 35.9 % 42.0-52.0 L MEAN CELL VOLUME (test code = 93.5 fL 80.0-94.0 N MCV) MEAN CELL HGB (test code = MCH) 31.3 pg 27-31 H MEAN CELL HGB CONCENTRATION 33.4 G/DL 33-36.5 N (test code = MCHC) RED CELL DISTRIBUTION WIDTH 14.2 % 12.9-16.9 N (test code = RDW) PLATELET COUNT (test code = 52 x10 3/uL 150-440 L PLT) MEAN PLATELET VOLUME (test code 11.9 fL 8.9-12.4 N = MPV) NEUTROPHIL % (test code = NT%) 56.5 % 42.2-75.2 N LYMPHOCYTE % (test code = LY%) 26.5 % 20.5-51.1 N MONOCYTE % (test code = MO%) 13.2 % 1.7-9.3 H EOSINOPHIL % (test code = EO%) 3.2 % 0.0-7.0 N BASOPHIL % (test code = BA%) 0.3 % 0-2.5 N NEUTROPHIL # (test code = NT#) 1.75 x10 3/uL 1.80-7.70 L LYMPHOCYTE # (test code = LY#) 0.82 x10 3/uL 1.00-4.80 L MONOCYTE # (test code = MO#) 0.41 x10 3/uL 0.00-0.80 N EOSINOPHIL # (test code = EO#) 0.10 x10 3/uL 0.00-0.45 N BASOPHIL # (test code = BA#) 0.01 x10 3/uL 0.0-0.20 N BASIC METABOLIC [id number] 10:06:00 Test Item Value Reference Range Interpretation Comments SODIUM (test code 140 mmol/L 136-145 N Please not e: New = NA) Reference Range Sep 2020 POTASSIUM (test 4.0 mmol/L 3.5-5.1 N code = K) CHLORIDE (test 109 mmol/L 98-107 H Please note: New code = CL) Reference Range Sep 2020 CARBON DIOXIDE 27 mmol/L 20-31 N Please note: New (test code = CO2) Reference Range Sep 2020 GLUCOSE (test code 103 mg/dL 74-106 N Please no te: New = GLU) Reference Range Sep 2020 BLOOD UREA 19 mg/dL 9-23 N Please note: Ne w NITROGEN (test Reference Ran ge Feb code = BUN) 2020 GLOMERULAR >=60 max >60 Units are FILTRATION RATE estimate mL/min mL/min/1. 73m2 The (test code = GFR) estimated glomerular filtration rate is computed usingpatient ra ce, age (>18), sex, and serum creatinin e. If anyof the neede d data elements a re missing the Laboratory denise ot compute an estimation of t he glomerular filtration rate . CREATININE (test 0.90 mg/dL 0.70-1.30 N Please note : New code = CREAT) Reference Rang e Sep 2020 CALCIUM (test code 7.9 mg/dL 8.7-10.4 L Please no te: New = CA) Reference Range Sep 2020 LIPID PROFILE (CORONARY RISK)2021-06-13 10:06:00 Test Item Value Reference Range Interpretation Comments TRIGLYCERIDES (test 68 mg/dL <150 N Please n ote: New code = TRIG) Reference Range Sep 2020 CHOLESTEROL (test code 106 mg/dL <200 N Pleas e note: New = CHOL) Reference Range Sep 2020 HDL CHOLESTEROL (test 31 mg/dL <60 N Please note: New code = HDL) Reference Range Sep 2020 LIPOPROTEIN LDL (test 71 mg/dL <100 N INTERP RETATIVE code = LDLC) DATA:LDL Choles terol: Reference RangesOptimal: <100 mg/dLNear Optim al: 100 -129 mg/dLBorde rline High: 130 - 159 mg/dLHigh: 160 - 189 mg/dLVery High: = or > 190 mg/dL CORONARY RISK FACTOR 3.42 CHOL/H DL RISK MALE: (test code = RISK) 1/2 AVG 3 .43 FEMALE: 1/2 AVG 3.27 AV G 4.97 AVG 4.44 2X AVG 9.55 2X AVG 7.05 3X AVG 23.39 3X AVG 11.04~~~~~~~~~~ ~~~~~~~ ~~~~~~~~~~~~~~~ ~~~~~~~ ~~~~~~~~~~~~~~~ ~~~~~~N ational Cholest nini Education (NCEP ) Guidelines:~~~~ ~~~~~~~ ~~~~~~~~~~~~~~~ ~~~~~~~ ~~~~~~~~~~~~~~~ ~~~~~~~ ~~~~~ HDL Cholesterol<4 0mg/dL: HDL Cholesterol (Major risk factor for CHD)>60mg/dL: H DL Cholesterol (Ne gative risk factor for CHD)40-59mg/dL: Borderline Risk LDL Cholesterol<1 00mg/dL : Desirable LDL -C [id number] 0-159mg /dL: Borderline High Risk LDL-C ydzgysvuthmpe31 0-189mg /dL: High risk LDL-C concentration H DL-LDL Cholesterol is affected by a n umber of factors such as smoking, age an d sex.~~~~~~~~~~~ ~~~~~~~ ~~~~~~~~~~~~~~~ ~~~~~~~ ~~~~~~~~~~~~~~~ ~~~~~ [id number] 10:06:00 Test Item Value Reference Range Interpretation Comments LIPASE (test code = 88 U/L 53 H Please n ote: New LIP) Reference Range Sep 2020 - XR CHEST 1 [id number] 09:56:00 [facility] : 1970 Sex: MPatient Name: KENRICK MONTES Unit No: [id number] EXAMS: CPT CODE: [id number] XR CHEST 1 V 08422 Chest Radiograph History: Chest Pain Comparison: None at this time Location: H45 A single frontal view ofthe chest is submitted. The heart is within normal limits in size. Pulmonary vasculature is unremarkable. There are minimal patchy opacities in the lung bases bilaterally. The bones appear unremarkable. IMPRESSION: There are minimal patchy opacities in the lung bases bilaterally. This could be due to atelectasis or pneumonia. at 0956 Reported and signed by: EMESRON FELIX M.D. CC: Lawrence Cannon MD Technologist: Nacho Taylor shaggy: DAP (Gy m2): Air Kerma (mGy): Trscr Dt/Tm: 06/13/2021 (0956) by:ManjeetPMT Printed Date/Time: 06/13/2021 (0959) Name: KENRICK MONTES [facility] Phys: Lawrence Tesfaye MD [address] : 1970 Age: 50 Sex: [place] [address] Loc: P.ERS Exam Date: 06/13/2021 Status: REG ER PH: FAX: PAGE 1 Signed ReportB-TYPE NATRIURETIC [id number] 09:36:00 Test Item Value Reference Range Interpretation Comments B-TYPE NATRIURETIC PEPTIDE (test 24 pg/mL <100 N code = BNP) [id number] 09:36:00 Test Item Value Reference Range Interpretation Comments TROPONIN-I (test < 2.5 pg/mL 38.73-80.22 L Please note : Units and code = TROPI) Reference Rang e have changedFeb 3, 2 021 LACTIC [id number] 09:32:00 Test Item Value Reference Range Interpretation Comments LACTIC ACID (test code = LACT) 0.90 mmol/L 0.5-2.0 N Treponema pallidum particle agglutination assay (TPPA test)2021-04-03 16:26:00 Test Item Value Reference Range Interpretation Comments Treponema pallidum particle Reactive Non Reactive A agglutination assay (TPPA test) (test code = 76536-5) [facility] antibody, [id number] 16:26:00 Test Item Value Reference Range Interpretation Comments rapid plasma reagin 1:2 See_Comment H [Automa robert message] The antibody, serum (test system which generated code = 5291-0) this result t ransmitted reference range : NonRea<1:1. The reference range was not u sed to interpret this result as normal/abnormal . [facility] HospitalHIV-1RNA, serum, by PCR, [id number] 16:26:00 Test Item Value Reference Range Interpretation Comments HIV-1RNA, serum, by PCR, 65222 /mL quantitative (test code = 42931) [facility] HospitalLDL cholesterol, [id number] 16:26:00 Test Item Value Reference Range Interpretation Comments LDL cholesterol, serum (test code = 70 mg/dL 0-99 1) [facility] Hospitalvery low density [id number] 16:26:00 Test Item Value Reference Range Interpretation Comments very low density lipoproteins (test 23 mg/dL 5-40 code = 2090-7) [facility] HospitalHDL cholesterol, [id number] 16:26:00 Test Item Value Reference Range Interpretation Comments HDL cholesterol, serum (test code = 32 mg/dL >39 L 2084-9) [facility]triglyceride, serum, [id number] 16:26:00 Test Item Value Reference Range Interpretation Comments triglyceride, serum, fasting (test 125 mg/dL 0-149 code = 2571-8) [facility]cholesterol, [id number] 16:26:00 Test Item Value Reference Range Interpretation Comments cholesterol, serum (test code = 125 mg/dL 520-738 4079-3) [facility] Hospitalalanine aminotransferase (SGPT), [id number] 16:26:00 Test Item Value Reference Range Interpretation Comments alanine aminotransferase (SGPT), serum 99 1/L 0-44 H (test code = 1742-6) [facility] Hospitalaspartate aminotransferase (SGOT), [id number] 16:26:00 Test Item Value Reference Range Interpretation Comments aspartate aminotransferase (SGOT), 118 1/L 0-40 H serum (test code = 1920-8) [facility] Hospitalalkaline phosphatase, [id number] 16:26:00 Test Item Value Reference Range Interpretation Comments alkaline phosphatase, serum (test 151 1/L 48-121 H code = 1783-0) [facility]bilirubin, serum, [id number] 16:26:00 Test Item Value Reference Range Interpretation Comments bilirubin, serum, total (test code 0.5 mg/dL 0.0-1.2 = 1975-2) [facility] Healthalbumin/globulin ratio, [id number] 16:26:00 Test Item Value Reference Range Interpretation Comments albumin/globulin ratio, 0.9 (unknown unit) 1.2-2.2 L serum (test code = 1759-0) [facility] Healthglobulin, [id number] 16:26:00 Test Item Value Reference Range Interpretation Comments globulin, serum (test code 4.0 (unknown unit) 1.5-4.5 = 2336-6) [facility] Healthalbumin, [id number] 16:26:00 Test Item Value Reference Range Interpretation Comments albumin, serum (test code = 1751-7) 3.4 g/dL 4.0-5.0 L [facility] Hospitalprotein, total, [id number] 16:26:00 Test Item Value Reference Range Interpretation Comments protein, total, serum (test code = 7.4 g/dL 6.0-8.5 2885-2) [facility] Hospitalcalcium, [id number] 16:26:00 Test Item Value Reference Range Interpretation Comments calcium, serum (test code = 1999-8) 8.7 mg/dL 8.7-10.2 [facility] Hospitalcarbon dioxide, venous [id number] 16:26:00 Test Item Value Reference Range Interpretation Comments carbon dioxide, venous blood (test 23 mmol/L 20-29 code = 2027-1) [facility] Hospitalchloride, [id number] 16:26:00 Test Item Value Reference Range Interpretation Comments chloride, serum (test code = 103 mmol/L 96-106 2075-0) [facility] Healthpotassium, [id number] 16:26:00 Test Item Value Reference Range Interpretation Comments potassium, serum (test code = 3.8 mmol/L 3.5-5.2 2823-3) [facility] Hospitalsodium, [id number] 16:26:00 Test Item Value Reference Range Interpretation Comments sodium, serum (test code = 2951-2) 138 mmol/L 134-144 [facility] Hospitalurea nitrogen/creatinine ratio, [id number] 16:26:00 Test Item Value Reference Range Interpretation Comments urea nitrogen/creatinine 12 (unknown unit) 9-20 ratio, serum (test code = 3097-3) [facility] HealtheGFR if [id number] 16:26:00 Test Item Value Reference Range Interpretation Comments eGFR if 120 mL/min/{1.73 m2} >59 (test code = 80079-4) [facility] HospitalEstimated Glomerular Filtration Rate (calc)2021-04-03 16:26:00 Test Item Value Reference Range Interpretation Comments Estimated Glomerular 104 mL/min/{1.73 m2} >59 Filtration Rate (calc) (test code = 85074-6) [facility] Hospitalcreatinine, [id number] 16:26:00 Test Item Value Reference Range Interpretation Comments creatinine, serum (test code = 0.81 mg/dL 0.76-1.27 2160-0) [facility] Hospitalurea nitrogen, [id number] 16:26:00 Test Item Value Reference Range Interpretation Comments urea nitrogen, blood (test code = 10 mg/dL 24 3094-0) [facility] Hospitalblood glucose, [id number] 16:26:00 Test Item Value Reference Range Interpretation Comments blood glucose, random (test code = 88 mg/dL 65-99 2339-0) [facility] Hospitalimmature granulocytes, percentage of total cells, blood 2021-04-03 16:26:00 Test Item Value Reference Range Interpretation Comments immature granulocytes, percentage of 0 % total cells, blood (test code = 62487-2) [facility] Hospitalbasophil count, [id number] 16:26:00 Test Item Value Reference Range Interpretation Comments basophil count, absolute (test 0.0 x10E3/uL 0.0-0.2 code = 22768-1) [facility] HealthEosinophil Absolute [id number] 16:26:00 Test Item Value Reference Range Interpretation Comments Eosinophil Absolute Count (test 0.2 X10E3/UL 0.0-0.4 code = 48732-3) [facility] Healthmonocyte count, blood, [id number] 16:26:00 Test Item Value Reference Range Interpretation Comments monocyte count, blood, automated 0.3 X10E3/UL 0.1-0.9 (test code = 742-7) [facility] Healthlymphocyte count, blood, [id number] 16:26:00 Test Item Value Reference Range Interpretation Comments lymphocyte count, blood, 0.6 X10E3/UL 0.7-3.1 L automated (test code = 731-0) [facility] HealthAbsolute [id number] 16:26:00 Test Item Value Reference Range Interpretation Comments Absolute Neutrophils (test code 1.1 X10E3/UL 1.4-7.0 L = 77948-4) [facility] Healthbasophils as percent of blood [id number] 16:26:00 Test Item Value Reference Range Interpretation Comments basophils as percent of blood 1 % leukocytes (test code = 707-0) [facility] Healtheosinophils as percent of blood hboboqtpkv0723-09-35 16:26:00 Test Item Value Reference Range Interpretation Comments eosinophils as percent of blood 9 % leukocytes (test code = 713-8) [facility] Healthmonocytes as percent of blood eozeofvumu9177-15-63 16:26:00 Test Item Value Reference Range Interpretation Comments monocytes as percent of blood 14 % leukocytes (test code = 5905-5) [facility] Healthlymphocytes as percent of blood viongnqmex2406-34-35 16:26:00 Test Item Value Reference Range Interpretation Comments lymphocytes as percent of blood 28 % leukocytes (test code = 736-9) [facility] Healthneutrophils as percent of blood nnzignxjjw7650-59-39 16:26:00 Test Item Value Reference Range Interpretation Comments neutrophils as percent of blood 48 % leukocytes (test code = 770-8) [facility] Hospitalplatelet [id number] 16:26:00 Test Item Value Reference Range Interpretation Comments platelet count (test code = 66 X10E3/UL 150-450 LL 777-3) [facility] Hospitalred blood cell distribution [id number] 16:26:00 Test Item Value Reference Range Interpretation Comments red blood cell distribution width 13.3 % 11.6-15.4 (test code = 788-0) [facility] hemoglobin concentration, [id number] 16:26:00 Test Item Value Reference Range Interpretation Comments mean corpuscular hemoglobin 35.1 G/DL 31.5-35.7 concentration, RBC (test code = 786-4) [facility] corpuscular hemoglobin, [id number] 16:26:00 Test Item Value Reference Range Interpretation Comments mean corpuscular hemoglobin, RBC 31.9 pg 26.6-33.0 (test code = 785-6) [facility] corpuscular volume, [id number] 16:26:00 Test Item Value Reference Range Interpretation Comments mean corpuscular volume, RBC (test code 91 fL 79-97 = 787-2) [facility] Hospitalhematocrit, [id number] 16:26:00 Test Item Value Reference Range Interpretation Comments hematocrit, blood (test code = 4544-3) 36.7 % 37.5-51.0 L [facility] Hospitalhemoglobin, [id number] 16:26:00 Test Item Value Reference Range Interpretation Comments hemoglobin, blood (test code = 12.9 g/dL 13.0-17.7 L 718-7) [facility] Hospitalerythrocyte (RBC) [id number] 16:26:00 Test Item Value Reference Range Interpretation Comments erythrocyte (RBC) count (test 4.04 X10E6/UL 4.14-5.80 L code = 789-8) [facility] Hospitalleukocyte count, [id number] 16:26:00 Test Item Value Reference Range Interpretation Comments leukocyte count, blood (test 2.2 X10E3/UL 3.4-10.8 LL code = 6690-2) [facility] HospitalCD4/CD8 [id number] 16:26:00 Test Item Value Reference Range Interpretation Comments CD4/CD8 ratio (test code 0.14 (unknown unit) 0.92-3.72 L = 66942) [facility] HospitalT-suppressor cells (CD8) as percent of blood lymphocytes 2021-04-03 16:26:00 Test Item Value Reference Range Interpretation Comments T-suppressor cells (CD8) as percent of 53.1 % 12.0-35.5 H blood lymphocytes (test code = 3517) [facility] Hospitalabsolute [id number] 16:26:00 Test Item Value Reference Range Interpretation Comments absolute CD8 (test code = 319 (unknown unit) 109-613 04590) [facility] HospitalT-helper cells (CD4) as percent of blood lymphocytes 2021-04-03 16:26:00 Test Item Value Reference Range Interpretation Comments T-helper cells (CD4) as percent of 7.3 % 30.8-58.5 L blood lymphocytes (test code = 8123-2) [facility] HospitalT-helper cells (CD4) [id number] 16:26:00 Test Item Value Reference Range Interpretation Comments T-helper cells (CD4) count (test code 44 /UL 359-1519 L = 61988-2) [facility] HospitalTreponema pallidum particle agglutination assay (TPPA test)2020-11-17 11:15:00 Test Item Value Reference Range Interpretation Comments Treponema pallidum particle Reactive Non Reactive A agglutination assay (TPPA test) (test code = 42264-9) [facility] Hospitalrapid plasma reagin antibody, [id number] 11:15:00 Test Item Value Reference Range Interpretation Comments rapid plasma reagin 1:2 See_Comment H [Automa robert message] The antibody, serum (test system which generated code = 5291-0) this result t ransmitted reference range : NonRea<1:1. The reference range was not u sed to interpret this result as normal/abnormal . [facility] HospitalHIV-1RNA, serum, by PCR, [id number] 11:15:00 Test Item Value Reference Range Interpretation Comments HIV-1RNA, serum, by PCR, 805462 /mL quantitative (test code = 62029) [facility] Hospitalalanine aminotransferase (SGPT), [id number] 11:15:00 Test Item Value Reference Range Interpretation Comments alanine aminotransferase (SGPT), serum 99 1/L 0-44 H (test code = 1742-6) [facility] Hospitalaspartate aminotransferase (SGOT), [id number] 11:15:00 Test Item Value Reference Range Interpretation Comments aspartate aminotransferase (SGOT), 106 1/L 0-40 H serum (test code = 1920-8) [facility] Hospitalalkaline phosphatase, [id number] 11:15:00 Test Item Value Reference Range Interpretation Comments alkaline phosphatase, serum (test 131 1/L 39-117 H code = 1783-0) [facility] Hospitalbilirubin, serum, [id number] 11:15:00 Test Item Value Reference Range Interpretation Comments bilirubin, serum, total (test code 0.4 mg/dL 0.0-1.2 = 1975-2) [facility]albumin/globulin ratio, [id number] 11:15:00 Test Item Value Reference Range Interpretation Comments albumin/globulin ratio, 0.8 (unknown unit) 1.2-2.2 L serum (test code = 1759-0) [facility] Healthglobulin, [id number] 11:15:00 Test Item Value Reference Range Interpretation Comments globulin, serum (test code 4.0 (unknown unit) 1.5-4.5 = 2336-6) [facility] [facility] [id number] 11:15:00 Test Item Value Reference Range Interpretation Comments albumin, serum (test code = 1751-7) 3.3 g/dL 4.0-5.0 L [facility] total, [id number] 11:15:00 Test Item Value Reference Range Interpretation Comments protein, total, serum (test code = 7.3 g/dL 6.0-8.5 2885-2) [facility], [id number] 11:15:00 Test Item Value Reference Range Interpretation Comments calcium, serum (test code = 2000-8) 8.4 mg/dL 8.7-10.2 L [facility]carbon dioxide, venous upwkk1236-95-46 11:15:00 Test Item Value Reference Range Interpretation Comments carbon dioxide, venous blood (test 24 mmol/L 20-29 code = 2027-1) [facility] Healthchloride, [id number] 11:15:00 Test Item Value Reference Range Interpretation Comments chloride, serum (test code = 104 mmol/L 96-106 2075-0) [facility] Healthpotassium, fxrem3913-53-08 11:15:00 Test Item Value Reference Range Interpretation Comments potassium, serum (test code = 4.3 mmol/L 3.5-5.2 2823-3) [facility]alsodium, nhmxt8601-37-70 11:15:00 Test Item Value Reference Range Interpretation Comments sodium, serum (test code = 2951-2) 138 mmol/L 134-144 [facility] Hospitalurea nitrogen/creatinine ratio, owyzf2704-03-87 11:15:00 Test Item Value Reference Range Interpretation Comments urea nitrogen/creatinine 15 (unknown unit) 9-20 ratio, serum (test code = 3097-3) [facility] HospitaleGFR if Hdoqbftj1839-67-76 11:15:00 Test Item Value Reference Range Interpretation Comments eGFR if 121 mL/min/{1.73 m2} >59 (test code = 48524-0) [facility] HospitalEstimated Glomerular Filtration Rate (calc)2020-11-17 11:15:00 Test Item Value Reference Range Interpretation Comments Estimated Glomerular 105 mL/min/{1.73 m2} >59 Filtration Rate (calc) (test code = 72675-5) [facility]creatinine, [id number] 11:15:00 Test Item Value Reference Range Interpretation Comments creatinine, serum (test code = 0.79 mg/dL 0.76-1.27 2160-0) [facility] Hospitalurea nitrogen, [id number] 11:15:00 Test Item Value Reference Range Interpretation Comments urea nitrogen, blood (test code = 12 mg/dL 6-24 3094-0) [facility]blood glucose, hqiivb5771-12-01 11:15:00 Test Item Value Reference Range Interpretation Comments blood glucose, random (test code = 84 mg/dL 65-99 2339-0) [facility] Hospitalbasophil count, lznijnvi6683-57-06 11:15:00 Test Item Value Reference Range Interpretation Comments basophil count, absolute (test 0.0 x10E3/uL 0.0-0.2 code = 38809-2) [facility] HealthEosinophil Absolute Ddhwt2105-99-35 11:15:00 Test Item Value Reference Range Interpretation Comments Eosinophil Absolute Count (test 0.1 X10E3/UL 0.0-0.4 code = 45181-4) [facility] Healthmonocyte count, blood, izuddwsue1680-28-29 11:15:00 Test Item Value Reference Range Interpretation Comments monocyte count, blood, automated 0.4 X10E3/UL 0.1-0.9 (test code = 742-7) [facility] Healthlymphocyte count, blood, vftroqzbx2728-76-09 11:15:00 Test Item Value Reference Range Interpretation Comments lymphocyte count, blood, 0.5 X10E3/UL 0.7-3.1 L automated (test code = 731-0) [facility] HealthAbsolute Ietdrlbpjvz0335-45-46 11:15:00 Test Item Value Reference Range Interpretation Comments Absolute Neutrophils (test code 1.3 X10E3/UL 1.4-7.0 L = 00907-6) [facility] Healthbasophils as percent of blood syrvbrrskb7142-95-95 11:15:00 Test Item Value Reference Range Interpretation Comments basophils as percent of blood 1 % leukocytes (test code = 707-0) [facility] Healtheosinophils as percent of blood hurszzgdlo8428-79-54 11:15:00 Test Item Value Reference Range Interpretation Comments eosinophils as percent of blood 5 % leukocytes (test code = 713-8) [facility] Healthmonocytes as percent of blood fbtwokvqql9471-76-49 11:15:00 Test Item Value Reference Range Interpretation Comments monocytes as percent of blood 18 % leukocytes (test code = 5905-5) [facility] Healthlymphocytes as percent of blood dkqsvmqztm7959-51-01 11:15:00 Test Item Value Reference Range Interpretation Comments lymphocytes as percent of blood 21 % leukocytes (test code = 736-9) [facility]neutrophils as percent of blood roqielxhvq0522-66-58 11:15:00 Test Item Value Reference Range Interpretation Comments neutrophils as percent of blood 41 % leukocytes (test code = 770-8) [facility] Hospitalplatelet uwwbk8203-62-05 11:15:00 Test Item Value Reference Range Interpretation Comments platelet count (test code = 64 X10E3/UL 150-450 LL 777-3) [facility] Hospitalred blood cell distribution hopst1661-34-85 11:15:00 Test Item Value Reference Range Interpretation Comments red blood cell distribution width 13.0 % 11.6-15.4 (test code = 788-0) [facility], [id number] 11:15:00 Test Item Value Reference Range Interpretation Comments mean corpuscular hemoglobin 34.1 G/DL 31.5-35.7 concentration, RBC (test code = 786-4) [facility] corpuscular hemoglobin, WSP1198-09-21 11:15:00 Test Item Value Reference Range Interpretation Comments mean corpuscular hemoglobin, RBC 31.1 pg 26.6-33.0 (test code = 785-6) [facility] corpuscular volume, EHR1272-95-00 11:15:00 Test Item Value Reference Range Interpretation Comments mean corpuscular volume, RBC (test code 91 fL 79-97 = 787-2) [facility]hematocrit, muprv8549-08-69 11:15:00 Test Item Value Reference Range Interpretation Comments hematocrit, blood (test code = 4544-3) 39.0 % 37.5-51.0 [facility]hemoglobin, [id number] 11:15:00 Test Item Value Reference Range Interpretation Comments hemoglobin, blood (test code = 13.3 g/dL 13.0-17.7 718-7) [facility] Hospitalerythrocyte (RBC) ydtzj2879-28-79 11:15:00 Test Item Value Reference Range Interpretation Comments erythrocyte (RBC) count (test 4.28 X10E6/UL 4.14-5.80 code = 789-8) [facility] Hospitalleukocyte count, jbjvc3505-67-90 11:15:00 Test Item Value Reference Range Interpretation Comments leukocyte count, blood (test 2.4 X10E3/UL 3.4-10.8 LL code = 6690-2) [facility] HospitalCD4/CD8 ypign5766-68-35 11:15:00 Test Item Value Reference Range Interpretation Comments CD4/CD8 ratio (test code 0.17 (unknown unit) 0.92-3.72 L = 67010) [facility] HospitalT-suppressor cells (CD8) as percent of blood lymphocytes 2020-11-17 11:15:00 Test Item Value Reference Range Interpretation Comments T-suppressor cells (CD8) as percent of 50.9 % 12.0-35.5 H blood lymphocytes (test code = 3517) [facility]absolute [id number] 11:15:00 Test Item Value Reference Range Interpretation Comments absolute CD8 (test code = 255 (unknown unit) 109-956 59381) [facility] HospitalT-helper cells (CD4) as percent of blood lymphocytes 2020-11-17 11:15:00 Test Item Value Reference Range Interpretation Comments T-helper cells (CD4) as percent of 8.6 % 30.8-58.5 L blood lymphocytes (test code = 8123-2) [facility] HospitalT-helper cells (CD4) qmssd2242-71-40 11:15:00 Test Item Value Reference Range Interpretation Comments T-helper cells (CD4) count (test code 43 /UL 359-1519 L = 18238-5) [facility] Hospitalhepatitis C antibody, btuyi3737-29-16 14:08:00 Test Item Value Reference Range Interpretation Comments hepatitis C antibody, serum (test code >11.0 0.0-0.9 H = 5199-5) [facility] HospitalTreponema pallidum particle agglutination assay (TPPA test)2020-08-15 14:08:00 Test Item Value Reference Range Interpretation Comments Treponema pallidum particle Reactive Non Reactive A agglutination assay (TPPA test) (test code = 23468-7) [facility] Hospitalrapid plasma reagin antibody, [id number] 14:08:00 Test Item Value Reference Range Interpretation Comments rapid plasma reagin 1:2 See_Comment H [Automa robert message] The antibody, serum (test system which generated code = 5291-0) this result t ransmitted reference range : NonRea<1:1. The reference range was not u sed to interpret this result as normal/abnormal . [facility] HospitalNeisseria gonorrhoeae DNA ptarx5883-93-77 14:08:00 Test Item Value Reference Range Interpretation Comments Neisseria gonorrhoeae DNA probe Negative Negative (test code = 64963-7) [facility] Hospitalchlamydia DNA lxnjr5108-24-19 14:08:00 Test Item Value Reference Range Interpretation Comments chlamydia DNA probe (test code = Negative Negative 34371-1) [facility] HospitalLDL cholesterol, hdqyl0552-91-12 14:08:00 Test Item Value Reference Range Interpretation Comments LDL cholesterol, serum (test code = 80 mg/dL 0-99 2088-1) [facility] Hospitalvery low density rtwkffslkrsp2204-46-24 14:08:00 Test Item Value Reference Range Interpretation Comments very low density lipoproteins (test 34 mg/dL 5-40 code = 2090-7) [facility] HospitalHDL cholesterol, ceeus5114-73-80 14:08:00 Test Item Value Reference Range Interpretation Comments HDL cholesterol, serum (test code = 38 mg/dL >39 L 2084-9) [facility] Hospitaltriglyceride, serum, uhnigaa7884-36-29 14:08:00 Test Item Value Reference Range Interpretation Comments triglyceride, serum, fasting (test 199 mg/dL 0-149 H code = 2571-8) [facility] Hospitalcholesterol, ccpsa3628-20-88 14:08:00 Test Item Value Reference Range Interpretation Comments cholesterol, serum (test code = 152 mg/dL 936-428 6311-3) [facility] Hospitalalanine aminotransferase (SGPT), jfedi4795-71-36 14:08:00 Test Item Value Reference Range Interpretation Comments alanine aminotransferase (SGPT), 115 1/L 0-44 H serum (test code = 1742-6) [facility] Hospitalaspartate aminotransferase (SGOT), ebjul7815-72-85 14:08:00 Test Item Value Reference Range Interpretation Comments aspartate aminotransferase (SGOT), 112 1/L 0-40 H serum (test code = 1920-8) [facility] Hospitalalkaline phosphatase, [id number] 14:08:00 Test Item Value Reference Range Interpretation Comments alkaline phosphatase, serum (test 159 1/L 39-117 H code = 1783-0) [facility] Hospitalbilirubin, serum, nlntm8585-10-01 14:08:00 Test Item Value Reference Range Interpretation Comments bilirubin, serum, total (test code 0.3 mg/dL 0.0-1.2 = 1975-2) [facility] Healthalbumin/globulin ratio, jpyxe2664-37-35 14:08:00 Test Item Value Reference Range Interpretation Comments albumin/globulin ratio, 0.9 (unknown unit) 1.2-2.2 L serum (test code = 1759-0) [facility] Healthglobulin, otwir7169-47-53 14:08:00 Test Item Value Reference Range Interpretation Comments globulin, serum (test code 3.7 (unknown unit) 1.5-4.5 = 2336-6) [facility] Healthalbumin, kdyqy5990-94-00 14:08:00 Test Item Value Reference Range Interpretation Comments albumin, serum (test code = 1751-7) 3.2 g/dL 4.0-5.0 L [facility] Hospitalprotein, total, tpmlk7626-23-79 14:08:00 Test Item Value Reference Range Interpretation Comments protein, total, serum (test code = 6.9 g/dL 6.0-8.5 2885-2) [facility] Hospitalcalcium, knqqe1304-54-28 14:08:00 Test Item Value Reference Range Interpretation Comments calcium, serum (test code = 1999-8) 8.6 mg/dL 8.7-10.2 L [facility] Hospitalcarbon dioxide, venous vodvq1547-05-91 14:08:00 Test Item Value Reference Range Interpretation Comments carbon dioxide, venous blood (test 25 mmol/L 20-29 code = 7-1) [facility] Hospitalchloride, [id number] 14:08:00 Test Item Value Reference Range Interpretation Comments chloride, serum (test code = 106 mmol/L 96-106 5-0) [facility] Hospitalpotassium, ewwak6145-23-42 14:08:00 Test Item Value Reference Range Interpretation Comments potassium, serum (test code = 4.2 mmol/L 3.5-5.2 2823-3) [facility] Hospitalsodium, casqv3017-08-98 14:08:00 Test Item Value Reference Range Interpretation Comments sodium, serum (test code = 2951-2) 139 mmol/L 134-144 [facility] Hospitalurea nitrogen/creatinine ratio, prhgw9582-47-20 14:08:00 Test Item Value Reference Range Interpretation Comments urea nitrogen/creatinine 15 (unknown unit) 9-20 ratio, serum (test code = 3097-3) [facility] HealtheGFR if Mmpashzk3423-12-14 14:08:00 Test Item Value Reference Range Interpretation Comments eGFR if 130 mL/min/{1.73 m2} >59 (test code = 49407-8) [facility] HospitalEstimated Glomerular Filtration Rate (calc)2020-08-15 14:08:00 Test Item Value Reference Range Interpretation Comments Estimated Glomerular 112 mL/min/{1.73 m2} >59 Filtration Rate (calc) (test code = 77219-3) [facility] Hospitalcreatinine, [id number] 14:08:00 Test Item Value Reference Range Interpretation Comments creatinine, serum (test code = 0.68 mg/dL 0.76-1.27 L 2160-0) [facility] Hospitalurea nitrogen, apphi4338-02-57 14:08:00 Test Item Value Reference Range Interpretation Comments urea nitrogen, blood (test code = 10 mg/dL 6-24 3094-0) [facility] Hospitalblood glucose, pnlnom5828-76-77 14:08:00 Test Item Value Reference Range Interpretation Comments blood glucose, random (test code = 79 mg/dL 65-99 2339-0) [facility] Hospitalbasophil count, gnzetysw6224-34-56 14:08:00 Test Item Value Reference Range Interpretation Comments basophil count, absolute (test 0.0 x10E3/uL 0.0-0.2 code = 23066-7) [facility] HospitalEosinophil Absolute Chcgt7931-90-66 14:08:00 Test Item Value Reference Range Interpretation Comments Eosinophil Absolute Count (test 0.1 X10E3/UL 0.0-0.4 code = 36525-1) [facility] Hospitalmonocyte count, blood, ipnvzogzd0023-83-68 14:08:00 Test Item Value Reference Range Interpretation Comments monocyte count, blood, automated 0.4 X10E3/UL 0.1-0.9 (test code = 742-7) [facility] Hospitallymphocyte count, blood, bqngbnhsf1190-09-68 14:08:00 Test Item Value Reference Range Interpretation Comments lymphocyte count, blood, 0.6 X10E3/UL 0.7-3.1 L automated (test code = 731-0) [facility] HospitalAbsolute Mahjgvqwrlw3032-03-47 14:08:00 Test Item Value Reference Range Interpretation Comments Absolute Neutrophils (test code 1.8 X10E3/UL 1.4-7.0 = 03311-4) [facility] Hospitalbasophils as percent of blood kwnsaaawxv3087-61-99 14:08:00 Test Item Value Reference Range Interpretation Comments basophils as percent of blood 0 % leukocytes (test code = 707-0) [facility] Hospitaleosinophils as percent of blood gzmtwdomml5617-14-86 14:08:00 Test Item Value Reference Range Interpretation Comments eosinophils as percent of blood 4 % leukocytes (test code = 713-8) [facility] Hospitalmonocytes as percent of blood tkdnnsumwp9540-22-19 14:08:00 Test Item Value Reference Range Interpretation Comments monocytes as percent of blood 13 % leukocytes (test code = 5905-5) [facility] Hospitallymphocytes as percent of blood cllbjhnagk7403-25-07 14:08:00 Test Item Value Reference Range Interpretation Comments lymphocytes as percent of blood 20 % leukocytes (test code = 736-9) [facility] Hospitalneutrophils as percent of blood btvsynuikx4217-26-60 14:08:00 Test Item Value Reference Range Interpretation Comments neutrophils as percent of blood 59 % leukocytes (test code = 770-8) [facility] Hospitalplatelet zjaxc6313-23-24 14:08:00 Test Item Value Reference Range Interpretation Comments platelet count (test code = 73 X10E3/UL 150-450 LL 777-3) [facility] Hospitalred blood cell distribution skeiy5739-28-70 14:08:00 Test Item Value Reference Range Interpretation Comments red blood cell distribution width 12.7 % 11.6-15.4 (test code = 788-0) [facility] corpuscular hemoglobin concentration, [id number] 14:08:00 Test Item Value Reference Range Interpretation Comments mean corpuscular hemoglobin 34.5 G/DL 31.5-35.7 concentration, RBC (test code = 786-4) [facility]) corpuscular hemoglobin, [id number] 14:08:00 Test Item Value Reference Range Interpretation Comments mean corpuscular hemoglobin, RBC 31.4 pg 26.6-33.0 (test code = 785-6) [facility] Hospitalmean corpuscular volume, [id number] 14:08:00 Test Item Value Reference Range Interpretation Comments mean corpuscular volume, RBC (test code 91 fL 79-97 = 787-2) [facility] Hospitalhematocrit, dnymw8303-69-25 14:08:00 Test Item Value Reference Range Interpretation Comments hematocrit, blood (test code = 4544-3) 38.8 % 37.5-51.0 [facility] Hospitalhemoglobin, gewnm6653-93-17 14:08:00 Test Item Value Reference Range Interpretation Comments hemoglobin, blood (test code = 13.4 g/dL 13.0-17.7 718-7) [facility] Hospitalerythrocyte (RBC) bsdnt9965-44-73 14:08:00 Test Item Value Reference Range Interpretation Comments erythrocyte (RBC) count (test 4.27 X10E6/UL 4.14-5.80 code = 789-8) [facility] Hospitalleukocyte count, [id number] 14:08:00 Test Item Value Reference Range Interpretation Comments leukocyte count, blood (test 2.9 X10E3/UL 3.4-10.8 L code = 6690-2) [facility] HospitalT-helper cells (CD4) as percent of blood lymphocytes 2020-08-15 14:08:00 Test Item Value Reference Range Interpretation Comments T-helper cells (CD4) as percent of 6.2 % 30.8-58.5 L blood lymphocytes (test code = 8123-2) [facility] HospitalT-helper cells (CD4) imrmf5325-41-17 14:08:00 Test Item Value Reference Range Interpretation Comments T-helper cells (CD4) count (test code 37 /UL 359-1519 L = 67615-3) [facility] Hospitalhepatitis B surface slzvvdm5562-84-31 14:08:00 Test Item Value Reference Range Interpretation Comments hepatitis B surface antigen (test Negative Negative code = 79) [facility] HospitalHIV-1RNA, serum, by PCR, swzlsfxfauoa7102-72-07 14:08:00 Test Item Value Reference Range Interpretation Comments HIV-1RNA, serum, by PCR, 107085 /mL quantitative (test code = 05064) [facility] HospitalCD4/CD8 ivlip2840-28-21 14:08:00 Test Item Value Reference Range Interpretation Comments CD4/CD8 ratio (test code 0.11 (unknown unit) 0.92-3.72 L = 66108) [facility] HospitalT-suppressor cells (CD8) as percent of blood lymphocytes 2020-08-15 14:08:00 Test Item Value Reference Range Interpretation Comments T-suppressor cells (CD8) as percent of 58.8 % 12.0-35.5 H blood lymphocytes (test code = 3517) [facility] Hospitalabsolute [id number] 14:08:00 Test Item Value Reference Range Interpretation Comments absolute CD8 (test code = 353 (unknown unit) 232-050 33528) [facility] Hospitalalanine aminotransferase (SGPT), oovdo2814-21-47 14:15:00 Test Item Value Reference Range Interpretation Comments alanine aminotransferase (SGPT), 146 1/L 0-44 H serum (test code = 1742-6) [facility] Hospitalaspartate aminotransferase (SGOT), obnex7113-91-08 14:15:00 Test Item Value Reference Range Interpretation Comments aspartate aminotransferase (SGOT), 130 1/L 0-40 H serum (test code = 1920-8) [facility] Hospitalalkaline phosphatase, ahfxf6922-03-07 14:15:00 Test Item Value Reference Range Interpretation Comments alkaline phosphatase, serum (test 112 1/L 39-117 code = 1783-0) [facility]bilirubin, serum, [id number] 14:15:00 Test Item Value Reference Range Interpretation Comments bilirubin, serum, total (test code 0.3 mg/dL 0.0-1.2 = 1975-2) [facility]albumin/globulin ratio, ulwsx3515-78-75 14:15:00 Test Item Value Reference Range Interpretation Comments albumin/globulin ratio, 1.2 (unknown unit) 1.2-2.2 serum (test code = 1759-0) [facility] Hospitalglobulin, epbgt6225-25-64 14:15:00 Test Item Value Reference Range Interpretation Comments globulin, serum (test code 3.2 (unknown unit) 1.5-4.5 = 2336-6) [facility] Healthalbumin, qyqfn9575-60-26 14:15:00 Test Item Value Reference Range Interpretation Comments albumin, serum (test code = 1751-7) 3.9 g/dL 4.0-5.0 L [facility]protein, total, mmxrb3392-68-72 14:15:00 Test Item Value Reference Range Interpretation Comments protein, total, serum (test code = 7.1 g/dL 6.0-8.5 2885-2) [facility] Hospitalcalcium, xwjju5369-81-73 14:15:00 Test Item Value Reference Range Interpretation Comments calcium, serum (test code = 1999-) 8.8 mg/dL 8.7-10.2 [facility] Hospitalcarbon dioxide, venous igrgh6920-58-19 14:15:00 Test Item Value Reference Range Interpretation Comments carbon dioxide, venous blood (test 22 mmol/L code = 2027-1) [facility] Hospitalchloride, pcuvt1748-09-35 14:15:00 Test Item Value Reference Range Interpretation Comments chloride, serum (test code = 105 mmol/L 96-106 5-0) [facility]potassium, ktrfk1445-34-36 14:15:00 Test Item Value Reference Range Interpretation Comments potassium, serum (test code = 4.0 mmol/L 3.5-5.2 2823-3) [facility]alsodium, dkbvo8211-95-72 14:15:00 Test Item Value Reference Range Interpretation Comments sodium, serum (test code = 2951-2) 139 mmol/L 134-144 [facility] Hospitalurea nitrogen/creatinine ratio, lukfp0146-95-82 14:15:00 Test Item Value Reference Range Interpretation Comments urea nitrogen/creatinine 8 (unknown unit) 9-20 L ratio, serum (test code = 3097-3) [facility] HealtheGFR if Briudhxx0702-48-15 14:15:00 Test Item Value Reference Range Interpretation Comments eGFR if 96 mL/min/{1.73 m2} >59 (test code = 17424-9) [facility] HospitalEstimated Glomerular Filtration Rate (calc)2019-11-25 14:15:00 Test Item Value Reference Range Interpretation Comments Estimated Glomerular 83 mL/min/{1.73 m2} >59 Filtration Rate (calc) (test code = 46897-2) [facility]creatinine, jsfsj6177-02-28 14:15:00 Test Item Value Reference Range Interpretation Comments creatinine, serum (test code = 1.05 mg/dL 0.76-1.27 2160-0) [facility] Hospitalurea nitrogen, gkhtr1867-98-61 14:15:00 Test Item Value Reference Range Interpretation Comments urea nitrogen, blood (test code = 8 mg/dL 6-24 3094-0) [facility] Hospitalblood glucose, ebdypd5385-01-32 14:15:00 Test Item Value Reference Range Interpretation Comments blood glucose, random (test code = 102 mg/dL 65-99 H 2339-0) [facility] Hospitalimmature granulocytes, percentage of total cells, blood 2019-11-25 14:15:00 Test Item Value Reference Range Interpretation Comments immature granulocytes, percentage of 0 % total cells, blood (test code = 06016-9) [facility] Hospitalbasophil count, bfwrzbpf5048-02-98 14:15:00 Test Item Value Reference Range Interpretation Comments basophil count, absolute (test 0.0 x10E3/uL 0.0-0.2 code = 22331-6) [facility] HospitalEosinophil Absolute Tvgri3921-48-92 14:15:00 Test Item Value Reference Range Interpretation Comments Eosinophil Absolute Count (test 0.2 X10E3/UL 0.0-0.4 code = 63390-6) [facility] Hospitalmonocyte count, blood, gtbuyotkh2823-47-81 14:15:00 Test Item Value Reference Range Interpretation Comments monocyte count, blood, automated 0.2 X10E3/UL 0.1-0.9 (test code = 742-7) [facility] Hospitallymphocyte count, blood, fzxcoiivr6793-50-14 14:15:00 Test Item Value Reference Range Interpretation Comments lymphocyte count, blood, 0.6 X10E3/UL 0.7-3.1 L automated (test code = 731-0) [facility] HospitalAbsolute Xguzjpyguvz9191-16-65 14:15:00 Test Item Value Reference Range Interpretation Comments Absolute Neutrophils (test code 1.3 X10E3/UL 1.4-7.0 L = 13799-2) [facility] Hospitalbasophils as percent of blood wcazddbmuc0961-14-25 14:15:00 Test Item Value Reference Range Interpretation Comments basophils as percent of blood 0 % leukocytes (test code = 707-0) [facility] Hospitaleosinophils as percent of blood ydcsrhtjij3298-77-50 14:15:00 Test Item Value Reference Range Interpretation Comments eosinophils as percent of blood 8 % leukocytes (test code = 713-8) [facility] Hospitalmonocytes as percent of blood hvtyquqcha7052-01-88 14:15:00 Test Item Value Reference Range Interpretation Comments monocytes as percent of blood 10 % leukocytes (test code = 5905-5) [facility] Hospitallymphocytes as percent of blood sypqsrzear6549-88-40 14:15:00 Test Item Value Reference Range Interpretation Comments lymphocytes as percent of blood 26 % leukocytes (test code = 736-9) [facility] Hospitalneutrophils as percent of blood wfaftgaluy0783-93-31 14:15:00 Test Item Value Reference Range Interpretation Comments neutrophils as percent of blood 56 % leukocytes (test code = 770-8) [facility]platelet [id number] 14:15:00 Test Item Value Reference Range Interpretation Comments platelet count (test code = 70 X10E3/UL 150-450 LL 777-3) [facility]red blood cell distribution zruwa0517-70-07 14:15:00 Test Item Value Reference Range Interpretation Comments red blood cell distribution width 13.4 % 11.6-15.4 (test code = 788-0) [facility] ([facility]) corpuscular hemoglobin concentration, [id number] 14:15:00 Test Item Value Reference Range Interpretation Comments mean corpuscular hemoglobin 33.9 G/DL 31.5-35.7 concentration, RBC (test code = 786-4) [facility] [id number] 14:15:00 Test Item Value Reference Range Interpretation Comments mean corpuscular hemoglobin, RBC 31.8 pg 26.6-33.0 (test code = 785-6) [facility] ([facility]) corpuscular volume, [id number] 14:15:00 Test Item Value Reference Range Interpretation Comments mean corpuscular volume, RBC (test code 94 fL 79-97 = 787-2) [facility]hematocrit, ecumk6635-72-70 14:15:00 Test Item Value Reference Range Interpretation Comments hematocrit, blood (test code = 4544-3) 42.2 % 37.5-51.0 [facility]hemoglobin, [id number] 14:15:00 Test Item Value Reference Range Interpretation Comments hemoglobin, blood (test code = 14.3 g/dL 13.0-17.7 718-7) [facility] Hospitalerythrocyte (RBC) [id number] 14:15:00 Test Item Value Reference Range Interpretation Comments erythrocyte (RBC) count (test 4.50 X10E6/UL 4.14-5.80 code = 789-8) [facility]leukocyte count, [id number] 14:15:00 Test Item Value Reference Range Interpretation Comments leukocyte count, blood (test 2.3 X10E3/UL 3.4-10.8 LL code = 6690-2) [facility] HospitalT-helper cells (CD4) as percent of blood lymphocytes 2019-11-25 14:15:00 Test Item Value Reference Range Interpretation Comments T-helper cells (CD4) as percent of 9.5 % 30.8-58.5 L blood lymphocytes (test code = 8123-2) [facility] HospitalT-helper cells (CD4) pmbfx5044-35-98 14:15:00 Test Item Value Reference Range Interpretation Comments T-helper cells (CD4) count (test code 57 /UL 359-1519 L = 61327-6) [facility] HospitalHIV-1RNA, serum, by PCR, gcctolbvkluf6196-98-11 14:15:00 Test Item Value Reference Range Interpretation Comments HIV-1RNA, serum, by PCR, 2720 /mL quantitative (test code = 44005) [facility] HospitalCD4/CD8 meuay5799-12-61 14:15:00 Test Item Value Reference Range Interpretation Comments CD4/CD8 ratio (test code 0.15 (unknown unit) 0.92-3.72 L = 41371) [facility] HospitalT-suppressor cells (CD8) as percent of blood lymphocytes 2019-11-25 14:15:00 Test Item Value Reference Range Interpretation Comments T-suppressor cells (CD8) as percent of 62.0 % 12.0-35.5 H blood lymphocytes (test code = 3517) [facility]absolute [id number] 14:15:00 Test Item Value Reference Range Interpretation Comments absolute CD8 (test code = 372 (unknown unit) 609-134 85847) [facility] HospitalTreponema pallidum particle agglutination assay (TPPA test)2019-10-14 11:34:00 Test Item Value Reference Range Interpretation Comments Treponema pallidum particle Reactive Non Reactive A agglutination assay (TPPA test) (test code = 05300-6) [facility] Hospitalrapid plasma reagin antibody, zldaz7143-70-76 11:34:00 Test Item Value Reference Range Interpretation Comments rapid plasma reagin 1:2 See_Comment H [Automa robert message] The antibody, serum (test system which generated code = 5291-0) this result t ransmitted reference range : NonRea<1:1. The reference range was not u sed to interpret this result as normal/abnormal . [facility] HospitalLDL cholesterol, glxog5953-44-17 11:34:00 Test Item Value Reference Range Interpretation Comments LDL cholesterol, serum (test code = 103 mg/dL 0-99 H 2088-08) [facility] Hospitalvery low density jauilbstpnem3792-52-94 11:34:00 Test Item Value Reference Range Interpretation Comments very low density lipoproteins (test 32 mg/dL 5-40 code = 2090-7) [facility] HospitalHDL cholesterol, zewpi6649-56-62 11:34:00 Test Item Value Reference Range Interpretation Comments HDL cholesterol, serum (test code = 27 mg/dL >39 L 2085-04) [facility] Hospitaltriglyceride, serum, liiqett5550-49-82 11:34:00 Test Item Value Reference Range Interpretation Comments triglyceride, serum, fasting (test 162 mg/dL 0-149 H code = 2571-8) [facility] Hospitalcholesterol, [id number] 11:34:00 Test Item Value Reference Range Interpretation Comments cholesterol, serum (test code = 162 mg/dL 674-556 2937-3) [facility] Hospitalalanine aminotransferase (SGPT), assjo4351-45-85 11:34:00 Test Item Value Reference Range Interpretation Comments alanine aminotransferase (SGPT), 136 1/L 0-44 H serum (test code = 1742-6) [facility] ([facility]OT), [id number] 11:34:00 Test Item Value Reference Range Interpretation Comments aspartate aminotransferase (SGOT), 135 1/L 0-40 H serum (test code = 1920-8) [facility] Hospitalalkaline phosphatase, gjyml4593-52-05 11:34:00 Test Item Value Reference Range Interpretation Comments alkaline phosphatase, serum (test code 86 1/L 39-117 = 1783-0) [facility]bilirubin, serum, vmclc0592-46-74 11:34:00 Test Item Value Reference Range Interpretation Comments bilirubin, serum, total (test code 0.4 mg/dL 0.0-1.2 = 1975-2) [facility] Healthalbumin/globulin ratio, ozpeu1132-49-67 11:34:00 Test Item Value Reference Range Interpretation Comments albumin/globulin ratio, 1.3 (unknown unit) 1.2-2.2 serum (test code = 1759-0) [facility] Healthglobulin, [id number] 11:34:00 Test Item Value Reference Range Interpretation Comments globulin, serum (test code 3.0 (unknown unit) 1.5-4.5 = 2336-6) [facility] Healthalbumin, bdqiv8724-56-69 11:34:00 Test Item Value Reference Range Interpretation Comments albumin, serum (test code = 1751-7) 4.0 g/dL 4.0-5.0 [facility]protein, total, [id number] 11:34:00 Test Item Value Reference Range Interpretation Comments protein, total, serum (test code = 7.0 g/dL 6.0-8.5 2885-2) [facility] Hospitalcalcium, ukonh4564-87-77 11:34:00 Test Item Value Reference Range Interpretation Comments calcium, serum (test code = 1999-8) 8.8 mg/dL 8.7-10.2 [facility] Hospitalcarbon dioxide, venous [id number] 11:34:00 Test Item Value Reference Range Interpretation Comments carbon dioxide, venous blood (test 23 mmol/L 20-29 code = 7-1) [facility] Healthchloride, [id number] 11:34:00 Test Item Value Reference Range Interpretation Comments chloride, serum (test code = 103 mmol/L 96-106 2075-0) [facility] Healthpotassium, wemou1627-70-36 11:34:00 Test Item Value Reference Range Interpretation Comments potassium, serum (test code = 4.3 mmol/L 3.5-5.2 2823-3) [facility] Hospitalsodium, dvrgs2507-13-45 11:34:00 Test Item Value Reference Range Interpretation Comments sodium, serum (test code = 2951-2) 139 mmol/L 134-144 [facility] Hospitalurea nitrogen/creatinine ratio, cfguy8279-88-46 11:34:00 Test Item Value Reference Range Interpretation Comments urea nitrogen/creatinine 10 (unknown unit) 9-20 ratio, serum (test code = 3097-3) [facility] HealtheGFR if Agijmutc3804-84-34 11:34:00 Test Item Value Reference Range Interpretation Comments eGFR if 117 mL/min/{1.73 m2} >59 (test code = 93529-7) [facility] HospitalEstimated Glomerular Filtration Rate (calc)2019-10-14 11:34:00 Test Item Value Reference Range Interpretation Comments Estimated Glomerular 101 mL/min/{1.73 m2} >59 Filtration Rate (calc) (test code = 78958-9) [facility] Hospitalcreatinine, [id number] 11:34:00 Test Item Value Reference Range Interpretation Comments creatinine, serum (test code = 0.88 mg/dL 0.76-1.27 2160-0) [facility] Hospitalurea nitrogen, ziufl5551-94-93 11:34:00 Test Item Value Reference Range Interpretation Comments urea nitrogen, blood (test code = 9 mg/dL 6-24 3094-0) [facility] Hospitalblood glucose, zehmtq6265-10-61 11:34:00 Test Item Value Reference Range Interpretation Comments blood glucose, random (test code = 74 mg/dL 65-99 2339-0) [facility] Hospitalbasophil count, [id number] 11:34:00 Test Item Value Reference Range Interpretation Comments basophil count, absolute (test 0.0 x10E3/uL 0.0-0.2 code = 35454-2) [facility] HospitalEosinophil Absolute Fgdcd9954-56-64 11:34:00 Test Item Value Reference Range Interpretation Comments Eosinophil Absolute Count (test 0.0 X10E3/UL 0.0-0.4 code = 49724-0) [facility] Healthmonocyte count, blood, hvzokocee9263-35-73 11:34:00 Test Item Value Reference Range Interpretation Comments monocyte count, blood, automated 0.7 X10E3/UL 0.1-0.9 (test code = 742-7) [facility] Healthlymphocyte count, blood, lxnxqkfia9806-57-08 11:34:00 Test Item Value Reference Range Interpretation Comments lymphocyte count, blood, 0.9 X10E3/UL 0.7-3.1 automated (test code = 731-0) [facility] HealthAbsolute Ecoouqwklbn2398-33-77 11:34:00 Test Item Value Reference Range Interpretation Comments Absolute Neutrophils (test code 1.5 X10E3/UL 1.4-7.0 = 53570-6) [facility] Healthbasophils as percent of blood omishplgrd9010-56-02 11:34:00 Test Item Value Reference Range Interpretation Comments basophils as percent of blood 1 % leukocytes (test code = 707-0) [facility] Healtheosinophils as percent of blood naszktisra3625-16-17 11:34:00 Test Item Value Reference Range Interpretation Comments eosinophils as percent of blood 1 % leukocytes (test code = 713-8) [facility] Healthmonocytes as percent of blood wkzzfecwav5448-61-55 11:34:00 Test Item Value Reference Range Interpretation Comments monocytes as percent of blood 21 % leukocytes (test code = 5905-5) [facility] Healthlymphocytes as percent of blood vvfwkestfe7920-70-51 11:34:00 Test Item Value Reference Range Interpretation Comments lymphocytes as percent of blood 28 % leukocytes (test code = 736-9) [facility] Healthneutrophils as percent of blood myepxkplmn0716-13-27 11:34:00 Test Item Value Reference Range Interpretation Comments neutrophils as percent of blood 42 % leukocytes (test code = 770-8) [facility] Healthplatelet ncvgv9786-11-46 11:34:00 Test Item Value Reference Range Interpretation Comments platelet count (test code = 81 X10E3/UL 150-450 LL 777-3) [facility] Hospitalred blood cell distribution mpihc5275-36-68 11:34:00 Test Item Value Reference Range Interpretation Comments red blood cell distribution width 13.0 % 11.6-15.4 (test code = 788-0) [facility]) corpuscular hemoglobin concentration, [id number] 11:34:00 Test Item Value Reference Range Interpretation Comments mean corpuscular hemoglobin 36.1 G/DL 31.5-35.7 H concentration, RBC (test code = 786-4) [facility]) corpuscular hemoglobin, [id number] 11:34:00 Test Item Value Reference Range Interpretation Comments mean corpuscular hemoglobin, RBC 33.4 pg 26.6-33.0 H (test code = 785-6) [facility]) corpuscular volume, [id number] 11:34:00 Test Item Value Reference Range Interpretation Comments mean corpuscular volume, RBC (test code 92 fL 79-97 = 787-2) [facility]hematocrit, tcfrj1674-57-43 11:34:00 Test Item Value Reference Range Interpretation Comments hematocrit, blood (test code = 4544-3) 37.9 % 37.5-51.0 [facility] Hospitalhemoglobin, [id number] 11:34:00 Test Item Value Reference Range Interpretation Comments hemoglobin, blood (test code = 13.7 g/dL 13.0-17.7 718-7) [facility] Hospitalerythrocyte (RBC) purjw6060-75-25 11:34:00 Test Item Value Reference Range Interpretation Comments erythrocyte (RBC) count (test 4.10 X10E6/UL 4.14-5.80 L code = 789-8) [facility]leukocyte count, iovnr2729-14-08 11:34:00 Test Item Value Reference Range Interpretation Comments leukocyte count, blood (test 3.1 X10E3/UL 3.4-10.8 L code = 6690-2) [facility] HospitalT-helper cells (CD4) as percent of blood lymphocytes 2019-10-14 11:34:00 Test Item Value Reference Range Interpretation Comments T-helper cells (CD4) as percent of 4.9 % 30.8-58.5 L blood lymphocytes (test code = 8123-2) [facility] HospitalT-helper cells (CD4) uffct3638-18-63 11:34:00 Test Item Value Reference Range Interpretation Comments T-helper cells (CD4) count (test code 44 /UL 359-1519 L = 72122-6) [facility] HospitalHIV-1RNA, serum, by PCR, jbgxmobjccbf5361-56-21 11:34:00 Test Item Value Reference Range Interpretation Comments HIV-1RNA, serum, by PCR, 594687 /mL quantitative (test code = 39893) [facility] HospitalCD4/CD8 bohgv6100-56-82 11:34:00 Test Item Value Reference Range Interpretation Comments CD4/CD8 ratio (test code 0.07 (unknown unit) 0.92-3.72 L = 55689) [facility] HospitalT-suppressor cells (CD8) as percent of blood lymphocytes 2019-10-14 11:34:00 Test Item Value Reference Range Interpretation Comments T-suppressor cells (CD8) as percent of 69.7 % 12.0-35.5 H blood lymphocytes (test code = 3517) [facility]absolute [id number] 11:34:00 Test Item Value Reference Range Interpretation Comments absolute CD8 (test code = 627 (unknown unit) 527-545 28119) [facility] Hospitalprothrombin time (patient)2019-04-15 14:27:00 Test Item Value Reference Range Interpretation Comments prothrombin time (patient) (test code 10.6 s 9.1-12.0 = 5902-2) [facility]international normalized ratio (INR)2019-04-15 14:27:00 Test Item Value Reference Range Interpretation Comments international normalized 1.0 (unknown unit) 0.8-1.2 ratio (INR) (test code = 6301-6) [facility]alanine aminotransferase (SGPT), [id number] 14:27:00 Test Item Value Reference Range Interpretation Comments alanine aminotransferase (SGPT), serum 53 1/L 0-44 H (test code = 1742-6) [facility] Hospitalaspartate aminotransferase (SGOT), irybi4307-83-25 14:27:00 Test Item Value Reference Range Interpretation Comments aspartate aminotransferase (SGOT), 66 1/L 0-40 H serum (test code = 1920-8) [facility] Hospitalalkaline phosphatase, tkqjb2952-15-08 14:27:00 Test Item Value Reference Range Interpretation Comments alkaline phosphatase, serum (test code 74 1/L 39-117 = 1783-0) [facility]albumin/globulin ratio, lqnbn6941-35-70 14:27:00 Test Item Value Reference Range Interpretation Comments albumin/globulin ratio, 1.3 (unknown unit) 1.2-2.2 serum (test code = 1759-0) [facility] Healthglobulin, oemkp0156-49-83 14:27:00 Test Item Value Reference Range Interpretation Comments globulin, serum (test code 3.0 (unknown unit) 1.5-4.5 = 2336-6) [facility] Healthalbumin, epetx3964-31-07 14:27:00 Test Item Value Reference Range Interpretation Comments albumin, serum (test code = 1751-7) 3.8 g/dL 3.5-5.5 [facility]protein, total, gkmjr6754-03-94 14:27:00 Test Item Value Reference Range Interpretation Comments protein, total, serum (test code = 6.8 g/dL 6.0-8.5 2885-2) [facility]calcium, jpcji0636-64-63 14:27:00 Test Item Value Reference Range Interpretation Comments calcium, serum (test code = 1999-8) 8.7 mg/dL 8.7-10.2 [facility] Hospitalcarbon dioxide, venous ybixg3196-80-16 14:27:00 Test Item Value Reference Range Interpretation Comments carbon dioxide, venous blood (test 21 mmol/L 20-29 code = 7-1) [facility] Hospitalchloride, kfhrp5307-45-59 14:27:00 Test Item Value Reference Range Interpretation Comments chloride, serum (test code = 105 mmol/L 96-106 2075-0) [facility] Hospitalpotassium, kjfyd8928-19-61 14:27:00 Test Item Value Reference Range Interpretation Comments potassium, serum (test code = 3.9 mmol/L 3.5-5.2 2823-3) [facility]alsodium, ctcjw9462-23-03 14:27:00 Test Item Value Reference Range Interpretation Comments sodium, serum (test code = 2951-2) 140 mmol/L 134-144 [facility] Hospitalurea nitrogen/creatinine ratio, lpmwx3849-07-29 14:27:00 Test Item Value Reference Range Interpretation Comments urea nitrogen/creatinine 12 (unknown unit) 9-20 ratio, serum (test code = 3097-3) [facility] HealtheGFR if Ucwtjhyn2603-12-91 14:27:00 Test Item Value Reference Range Interpretation Comments eGFR if 116 mL/min/{1.73 m2} >59 (test code = 53366-8) [facility] HospitalEstimated Glomerular Filtration Rate (calc)2019-04-15 14:27:00 Test Item Value Reference Range Interpretation Comments Estimated Glomerular 101 mL/min/{1.73 m2} >59 Filtration Rate (calc) (test code = 00520-2) [facility] Hospitalcreatinine, xtuor1039-37-77 14:27:00 Test Item Value Reference Range Interpretation Comments creatinine, serum (test code = 0.90 mg/dL 0.76-1.27 2160-0) [facility] Hospitalurea nitrogen, [id number] 14:27:00 Test Item Value Reference Range Interpretation Comments urea nitrogen, blood (test code = 11 mg/dL 6-24 3094-0) [facility] Hospitalblood glucose, oyshvz9761-55-87 14:27:00 Test Item Value Reference Range Interpretation Comments blood glucose, random (test code = 87 mg/dL 65-99 2339-0) [facility]bilirubin, serum, opgki6053-74-89 14:27:00 Test Item Value Reference Range Interpretation Comments bilirubin, serum, total (test code 0.5 mg/dL 0.0-1.2 = 1975-2) [facility] Hospitalimmature granulocytes, percentage of total cells, blood 2019-04-15 14:27:00 Test Item Value Reference Range Interpretation Comments immature granulocytes, percentage of 0 % total cells, blood (test code = 95027-4) [facility]basophil count, rtvgrzdt6041-71-97 14:27:00 Test Item Value Reference Range Interpretation Comments basophil count, absolute (test 0.0 x10E3/uL 0.0-0.2 code = 48520-6) [facility] HospitalEosinophil Absolute Nzozr3582-54-96 14:27:00 Test Item Value Reference Range Interpretation Comments Eosinophil Absolute Count (test 0.2 X10E3/UL 0.0-0.4 code = 87243-0) [facility] Hospitalmonocyte count, blood, nswiefzof4629-46-31 14:27:00 Test Item Value Reference Range Interpretation Comments monocyte count, blood, automated 0.4 X10E3/UL 0.1-0.9 (test code = 742-7) [facility] Hospitallymphocyte count, blood, xhclyibrt4807-80-25 14:27:00 Test Item Value Reference Range Interpretation Comments lymphocyte count, blood, 0.9 X10E3/UL 0.7-3.1 automated (test code = 731-0) [facility] HospitalAbsolute Qxajzlcdtgp5788-77-76 14:27:00 Test Item Value Reference Range Interpretation Comments Absolute Neutrophils (test code 1.6 X10E3/UL 1.4-7.0 = 17241-1) [facility] Hospitalbasophils as percent of blood tzqimaqlca9192-93-04 14:27:00 Test Item Value Reference Range Interpretation Comments basophils as percent of blood 1 % leukocytes (test code = 707-0) [facility] Hospitaleosinophils as percent of blood ituuhlcbnx8210-98-68 14:27:00 Test Item Value Reference Range Interpretation Comments eosinophils as percent of blood 7 % leukocytes (test code = 713-8) [facility] Healthmonocytes as percent of blood jkguufrgsj8525-53-67 14:27:00 Test Item Value Reference Range Interpretation Comments monocytes as percent of blood 13 % leukocytes (test code = 5905-5) [facility] Hospitallymphocytes as percent of blood yjtwznbqjf5573-54-34 14:27:00 Test Item Value Reference Range Interpretation Comments lymphocytes as percent of blood 29 % leukocytes (test code = 736-9) [facility] Hospitalneutrophils as percent of blood tcjwyrbgwn7425-45-85 14:27:00 Test Item Value Reference Range Interpretation Comments neutrophils as percent of blood 50 % leukocytes (test code = 770-8) [facility] Hospitalplatelet njoyu8058-41-24 14:27:00 Test Item Value Reference Range Interpretation Comments platelet count (test code = 55 X10E3/UL 150-450 LL 777-3) [facility] Hospitalred blood cell distribution oidqa2863-92-41 14:27:00 Test Item Value Reference Range Interpretation Comments red blood cell distribution width 14.7 % 12.3-15.4 (test code = 788-0) [facility] corpuscular hemoglobin concentration, [id number] 14:27:00 Test Item Value Reference Range Interpretation Comments mean corpuscular hemoglobin 33.8 G/DL 31.5-35.7 concentration, RBC (test code = 786-4) [facility]) corpuscular hemoglobin, KSB7269-15-02 14:27:00 Test Item Value Reference Range Interpretation Comments mean corpuscular hemoglobin, RBC 31.2 pg 26.6-33.0 (test code = 785-6) [facility]) corpuscular volume, [id number] 14:27:00 Test Item Value Reference Range Interpretation Comments mean corpuscular volume, RBC (test code 92 fL 79-97 = 787-2) [facility]hematocrit, ggfjp1394-23-49 14:27:00 Test Item Value Reference Range Interpretation Comments hematocrit, blood (test code = 4544-3) 37.9 % 37.5-51.0 [facility] Hospitalhemoglobin, upgxr7525-82-00 14:27:00 Test Item Value Reference Range Interpretation Comments hemoglobin, blood (test code = 12.8 g/dL 13.0-17.7 L 718-7) [facility] Hospitalerythrocyte (RBC) mcqpt3296-81-93 14:27:00 Test Item Value Reference Range Interpretation Comments erythrocyte (RBC) count (test 4.10 X10E6/UL 4.14-5.80 L code = 789-8) [facility]leukocyte count, sqfwk5901-94-01 14:27:00 Test Item Value Reference Range Interpretation Comments leukocyte count, blood (test 3.2 X10E3/UL 3.4-10.8 L code = 6690-2) [facility] HospitalT-helper cells (CD4) as percent of blood lymphocytes 2019-04-15 14:27:00 Test Item Value Reference Range Interpretation Comments T-helper cells (CD4) as percent of 7.8 % 30.8-58.5 L blood lymphocytes (test code = 8123-2) [facility] HospitalT-helper cells (CD4) mjpib3067-70-99 14:27:00 Test Item Value Reference Range Interpretation Comments T-helper cells (CD4) count (test code 70 /UL 359-1519 L = 70964-7) [facility] HospitalHIV-1RNA, serum, by PCR, trarqhvwiywv9128-05-00 14:27:00 Test Item Value Reference Range Interpretation Comments HIV-1RNA, serum, by PCR, 090138 /mL quantitative (test code = 82025) [facility] Hospitalgamma glutamyl transferase, ljkrf8322-16-80 14:27:00 Test Item Value Reference Range Interpretation Comments gamma glutamyl transferase, serum 47 1/L 0-65 (test code = 25) [facility] Hospitalapolipoprotein A-1, prwjl4601-73-75 14:27:00 Test Item Value Reference Range Interpretation Comments apolipoprotein A-1, serum (test code 86 mg/dL 101-178 L = 3924) [facility] Hospitalhaptoglobin, byfhe4446-35-97 14:27:00 Test Item Value Reference Range Interpretation Comments haptoglobin, serum (test code = 86 mg/dL 34-200 2851) [facility] Hospitalalpha-2 macroglobulin, sgqps3807-58-90 14:27:00 Test Item Value Reference Range Interpretation Comments alpha-2 macroglobulin, serum (test 230 mg/dL 110-276 code = 5539) [facility] HospitalHCV Wkcsrcwcq7063-46-97 14:27:00 Test Item Value Reference Range Interpretation Comments HCV Fibrosure (test code 0.36 (unknown unit) 0.00-0.21 H = 127431) [facility] HospitalCD4/CD8 vaeeo8821-08-03 14:27:00 Test Item Value Reference Range Interpretation Comments CD4/CD8 ratio (test code 0.12 (unknown unit) 0.92-3.72 L = 83561) [facility] HospitalT-suppressor cells (CD8) as percent of blood lymphocytes 2019-04-15 14:27:00 Test Item Value Reference Range Interpretation Comments T-suppressor cells (CD8) as percent of 64.0 % 12.0-35.5 H blood lymphocytes (test code = 3517) [facility] Hospitalabsolute [id number] 14:27:00 Test Item Value Reference Range Interpretation Comments absolute CD8 (test code = 576 (unknown unit) 640-189 23801) [facility] [facility] [id number] 12:10:00 Test Item Value Reference Range Interpretation Comments alanine aminotransferase (SGPT), serum 48 1/L 0-44 H (test code = 1742-6) [facility]), gghra4255-91-24 12:10:00 Test Item Value Reference Range Interpretation Comments aspartate aminotransferase (SGOT), 54 1/L 0-40 H serum (test code = 1920-8) [facility]alk[facility] phosphatase, ucgrn6120-63-58 12:10:00 Test Item Value Reference Range Interpretation Comments alkaline phosphatase, serum (test code 72 1/L 39-117 = 1783-0) [facility] serum, [id number] 12:10:00 Test Item Value Reference Range Interpretation Comments bilirubin, serum, total (test code 0.4 mg/dL 0.0-1.2 = 1975-2) [facility] ratio, blxuh5601-56-29 12:10:00 Test Item Value Reference Range Interpretation Comments albumin/globulin ratio, 1.5 (unknown unit) 1.2-2.2 serum (test code = 1759-0) [facility]glob[facility], cffmj9333-24-24 12:10:00 Test Item Value Reference Range Interpretation Comments globulin, serum (test code 3.1 (unknown unit) 1.5-4.5 = 2336-6) [facility]albumin, vtsgk1033-59-89 12:10:00 Test Item Value Reference Range Interpretation Comments albumin, serum (test code = 1751-7) 4.5 g/dL 3.5-5.5 [facility] total, zmftv7566-67-05 12:10:00 Test Item Value Reference Range Interpretation Comments protein, total, serum (test code = 7.6 g/dL 6.0-8.5 2885-2) [facility]calcium, vmcnx2989-42-09 12:10:00 Test Item Value Reference Range Interpretation Comments calcium, serum (test code = 1999-8) 9.0 mg/dL 8.7-10.2 [facility]carbon dioxide, venous ywssd3478-01-67 12:10:00 Test Item Value Reference Range Interpretation Comments carbon dioxide, venous blood (test 20 mmol/L - code = 2026-1) [facility]chloride, wvkvr6336-96-34 12:10:00 Test Item Value Reference Range Interpretation Comments chloride, serum (test code = 107 mmol/L 96-106 H 5-0) [facility]potassium, gadqq8151-28-06 12:10:00 Test Item Value Reference Range Interpretation Comments potassium, serum (test code = 4.1 mmol/L 3.5-5.2 2823-3) [facility]alsodium, uvvuh0341-45-98 12:10:00 Test Item Value Reference Range Interpretation Comments sodium, serum (test code = 2951-2) 143 mmol/L 134-144 [facility]urea nitrogen/creatinine ratio, fjomz6126-45-13 12:10:00 Test Item Value Reference Range Interpretation Comments urea nitrogen/creatinine 9 (unknown unit) 9-20 ratio, serum (test code = 3097-3) [facility] HospitaleGFR if Hivfjmju0103-00-36 12:10:00 Test Item Value Reference Range Interpretation Comments eGFR if 104 mL/min/{1.73 m2} >59 (test code = 26401-0) [facility] HospitalEstimated Glomerular Filtration Rate (calc)2018-11-21 12:10:00 Test Item Value Reference Range Interpretation Comments Estimated Glomerular 90 mL/min/{1.73 m2} >59 Filtration Rate (calc) (test code = 03189-8) [facility]creatinine, [id number] 12:10:00 Test Item Value Reference Range Interpretation Comments creatinine, serum (test code = 0.99 mg/dL 0.76-1.27 2160-0) [facility]urea nitrogen, inyzn7473-33-56 12:10:00 Test Item Value Reference Range Interpretation Comments urea nitrogen, blood (test code = 9 mg/dL 6-24 3094-0) [facility]blood glucose, hiapkx6992-50-09 12:10:00 Test Item Value Reference Range Interpretation Comments blood glucose, random (test code = 86 mg/dL 65-99 2339-0) [facility]immature granulocytes, percentage of total cells, blood 2018-11-21 12:10:00 Test Item Value Reference Range Interpretation Comments immature granulocytes, percentage of 0 % total cells, blood (test code = 33617-4) [facility] Healthbasophil count, ifprvaol3411-29-25 12:10:00 Test Item Value Reference Range Interpretation Comments basophil count, absolute (test 0.0 x10E3/uL 0.0-0.2 code = 72731-8) [facility] HealthEosinophil Absolute Pdyrd8000-88-00 12:10:00 Test Item Value Reference Range Interpretation Comments Eosinophil Absolute Count (test 0.3 X10E3/UL 0.0-0.4 code = 98652-9) [facility]monocyte count, blood, quxlnsuyv0073-96-20 12:10:00 Test Item Value Reference Range Interpretation Comments monocyte count, blood, automated 0.5 X10E3/UL 0.1-0.9 (test code = 742-7) [facility] Hospitallymphocyte count, blood, ntylzrisd8846-12-29 12:10:00 Test Item Value Reference Range Interpretation Comments lymphocyte count, blood, 1.3 X10E3/UL 0.7-3.1 automated (test code = 731-0) [facility]Absolute Rjkvogrdyqr3066-17-07 12:10:00 Test Item Value Reference Range Interpretation Comments Absolute Neutrophils (test code 1.7 X10E3/UL 1.4-7.0 = 84835-2) [facility]basophils as percent of blood oejwqykevc1500-42-66 12:10:00 Test Item Value Reference Range Interpretation Comments basophils as percent of blood 0 % leukocytes (test code = 707-0) [facility] Healtheosinophils as percent of blood ncstpijjko0724-32-03 12:10:00 Test Item Value Reference Range Interpretation Comments eosinophils as percent of blood 8 % leukocytes (test code = 713-8) [facility] Healthmonocytes as percent of blood mtjzyuultg5263-61-18 12:10:00 Test Item Value Reference Range Interpretation Comments monocytes as percent of blood 13 % leukocytes (test code = 5905-5) [facility]allymphocytes as percent of blood nylrutzfth0831-01-59 12:10:00 Test Item Value Reference Range Interpretation Comments lymphocytes as percent of blood 34 % leukocytes (test code = 736-9) [facility] Hospitalneutrophils as percent of blood vzelbszbvs8738-03-12 12:10:00 Test Item Value Reference Range Interpretation Comments neutrophils as percent of blood 45 % leukocytes (test code = 770-8) [facility] Hospitalplatelet scyxg6835-41-09 12:10:00 Test Item Value Reference Range Interpretation Comments platelet count (test code = 86 X10E3/UL 150-379 LL 777-3) [facility] Hospitalred blood cell distribution ylvzc9721-02-66 12:10:00 Test Item Value Reference Range Interpretation Comments red blood cell distribution width 15.2 % 12.3-15.4 (test code = 788-0) [facility] corpuscular hemoglobin concentration, [id number] 12:10:00 Test Item Value Reference Range Interpretation Comments mean corpuscular hemoglobin 33.9 G/DL 31.5-35.7 concentration, RBC (test code = 786-4) [facility] corpuscular hemoglobin, [id number] 12:10:00 Test Item Value Reference Range Interpretation Comments mean corpuscular hemoglobin, RBC 32.2 pg 26.6-33.0 (test code = 785-6) [facility] corpuscular volume, [id number] 12:10:00 Test Item Value Reference Range Interpretation Comments mean corpuscular volume, RBC (test code 95 fL 79-97 = 787-2) [facility]hematocrit, zkohg3966-03-94 12:10:00 Test Item Value Reference Range Interpretation Comments hematocrit, blood (test code = 4544-3) 42.5 % 37.5-51.0 [facility]hemoglobin, fbddr7707-19-27 12:10:00 Test Item Value Reference Range Interpretation Comments hemoglobin, blood (test code = 14.4 g/dL 13.0-17.7 718-7) [facility] Hospitalerythrocyte (RBC) ohycp5316-84-35 12:10:00 Test Item Value Reference Range Interpretation Comments erythrocyte (RBC) count (test 4.47 X10E6/UL 4.14-5.80 code = 789-8) [facility]leukocyte count, ghimi0774-39-37 12:10:00 Test Item Value Reference Range Interpretation Comments leukocyte count, blood (test 3.8 X10E3/UL 3.4-10.8 code = 6690-2) [facility] HospitalT-helper cells (CD4) as percent of blood lymphocytes 2018-11-21 12:10:00 Test Item Value Reference Range Interpretation Comments T-helper cells (CD4) as percent of 8.3 % 30.8-58.5 L blood lymphocytes (test code = 8123-2) [facility] HospitalT-helper cells (CD4) gydhq6861-29-41 12:10:00 Test Item Value Reference Range Interpretation Comments T-helper cells (CD4) count (test code 108 /UL 359-1519 L = 58852-1) [facility] HospitalHIV-1RNA, serum, by PCR, dsrtddqjrjzc4976-56-76 12:10:00 Test Item Value Reference Range Interpretation Comments HIV-1RNA, serum, by PCR, 1250 /mL quantitative (test code = 11579) [facility] HospitalCD4/CD8 atnvq1888-44-34 12:10:00 Test Item Value Reference Range Interpretation Comments CD4/CD8 ratio (test code 0.12 (unknown unit) 0.92-3.72 L = 18959) [facility] HospitalT-suppressor cells (CD8) as percent of blood lymphocytes 2018-11-21 12:10:00 Test Item Value Reference Range Interpretation Comments T-suppressor cells (CD8) as percent of 68.2 % 12.0-35.5 H blood lymphocytes (test code = 3517) [facility]absolute [id number] 12:10:00 Test Item Value Reference Range Interpretation Comments absolute CD8 (test code = 887 (unknown unit) 109-482 56192) [facility] HospitalLDL cholesterol, jojsk6980-86-54 09:58:00 Test Item Value Reference Range Interpretation Comments LDL cholesterol, serum (test code = 107 mg/dL 0-99 H 2088-08) [facility]very low density nawjocyyjrrt6103-45-40 09:58:00 Test Item Value Reference Range Interpretation Comments very low density lipoproteins (test 21 mg/dL 5-40 code = 2091-7) [facility]HDL cholesterol, czqzu0238-92-43 09:58:00 Test Item Value Reference Range Interpretation Comments HDL cholesterol, serum (test code = 38 mg/dL >39 L 2084-9) [facility]triglyceride, serum, edsdqjc7158-86-20 09:58:00 Test Item Value Reference Range Interpretation Comments triglyceride, serum, fasting (test 105 mg/dL 0-149 code = 2571-8) [facility]cholesterol, eijfr5141-67-38 09:58:00 Test Item Value Reference Range Interpretation Comments cholesterol, serum (test code = 166 mg/dL 736-494 4235-3) [facility] HospitalTreponema pallidum particle agglutination assay (TPPA test)2018-09-05 09:47:00 Test Item Value Reference Range Interpretation Comments Treponema pallidum particle Positive Negative A agglutination assay (TPPA test) (test code = 35944-9) [facility] Hospitalrapid plasma reagin antibody, tilip2246-81-17 09:47:00 Test Item Value Reference Range Interpretation Comments rapid plasma reagin 1:4 See_Comment H [Automa robert message] The antibody, serum (test system which generated code = 5291-0) this result t ransmitted reference range : NonRea<1:1. The reference range was not u sed to interpret this result as normal/abnormal . [facility]alanine aminotransferase (SGPT), yptkc1069-66-20 09:47:00 Test Item Value Reference Range Interpretation Comments alanine aminotransferase (SGPT), serum 51 1/L 0-44 H (test code = 1742-6) [facility] Hospitalaspartate aminotransferase (SGOT), tfetm7060-46-17 09:47:00 Test Item Value Reference Range Interpretation Comments aspartate aminotransferase (SGOT), 47 1/L 0-40 H serum (test code = 1920-8) [facility]alkaline phosphatase, ghgie6758-08-00 09:47:00 Test Item Value Reference Range Interpretation Comments alkaline phosphatase, serum (test code 87 1/L 39-117 = 1783-0) [facility]bilirubin, serum, pihns8370-63-72 09:47:00 Test Item Value Reference Range Interpretation Comments bilirubin, serum, total (test code 0.3 mg/dL 0.0-1.2 = 1975-2) [facility] Healthalbumin/globulin ratio, sogsd7125-44-43 09:47:00 Test Item Value Reference Range Interpretation Comments albumin/globulin ratio, 1.3 (unknown unit) 1.2-2.2 serum (test code = 1759-0) [facility] Healthglobulin, feqcs7894-41-06 09:47:00 Test Item Value Reference Range Interpretation Comments globulin, serum (test code 3.2 (unknown unit) 1.5-4.5 = 2336-6) [facility] Healthalbumin, vusqw8552-14-29 09:47:00 Test Item Value Reference Range Interpretation Comments albumin, serum (test code = 1751-7) 4.3 g/dL 3.5-5.5 [facility]protein, total, pkezc7795-36-29 09:47:00 Test Item Value Reference Range Interpretation Comments protein, total, serum (test code = 7.5 g/dL 6.0-8.5 2885-2) [facility]calcium, dhigl5577-67-06 09:47:00 Test Item Value Reference Range Interpretation Comments calcium, serum (test code = 1999-8) 8.9 mg/dL 8.7-10.2 [facility]carbon dioxide, venous zmgku5818-76-93 09:47:00 Test Item Value Reference Range Interpretation Comments carbon dioxide, venous blood (test 18 mmol/L 20-29 L code = 2026-1) [facility]chloride, cqukz2073-26-64 09:47:00 Test Item Value Reference Range Interpretation Comments chloride, serum (test code = 109 mmol/L 96-106 H 5-0) [facility]potassium, adcml7545-88-73 09:47:00 Test Item Value Reference Range Interpretation Comments potassium, serum (test code = 4.3 mmol/L 3.5-5.2 2823-3) [facility]alsodium, glaca2838-11-93 09:47:00 Test Item Value Reference Range Interpretation Comments sodium, serum (test code = 2951-2) 141 mmol/L 134-144 [facility]urea nitrogen/creatinine ratio, fvbrq8190-11-53 09:47:00 Test Item Value Reference Range Interpretation Comments urea nitrogen/creatinine 10 (unknown unit) 9-20 ratio, serum (test code = 3097-3) [facility] HealtheGFR if Pkcxqwce1781-67-75 09:47:00 Test Item Value Reference Range Interpretation Comments eGFR if 91 mL/min/{1.73 m2} >59 (test code = 39313-4) [facility] HospitalEstimated Glomerular Filtration Rate (calc)2018-09-05 09:47:00 Test Item Value Reference Range Interpretation Comments Estimated Glomerular 79 mL/min/{1.73 m2} >59 Filtration Rate (calc) (test code = 64537-5) [facility]creatinine, dfxig6305-72-62 09:47:00 Test Item Value Reference Range Interpretation Comments creatinine, serum (test code = 1.10 mg/dL 0.76-1.27 2160-0) [facility]urea nitrogen, xobxo7453-01-28 09:47:00 Test Item Value Reference Range Interpretation Comments urea nitrogen, blood (test code = 11 mg/dL 6-24 3094-0) [facility]blood glucose, rbmegt0696-82-38 09:47:00 Test Item Value Reference Range Interpretation Comments blood glucose, random (test code = 89 mg/dL 65-99 2339-0) [facility]immature granulocytes, percentage of total cells, blood 2018-09-05 09:47:00 Test Item Value Reference Range Interpretation Comments immature granulocytes, percentage of 0 % total cells, blood (test code = 22716-5) [facility]basophil count, dtmyefve4741-08-74 09:47:00 Test Item Value Reference Range Interpretation Comments basophil count, absolute (test 0.0 x10E3/uL 0.0-0.2 code = 09328-4) [facility] HospitalEosinophil Absolute Cotdw9352-46-82 09:47:00 Test Item Value Reference Range Interpretation Comments Eosinophil Absolute Count (test 0.3 X10E3/UL 0.0-0.4 code = 52803-9) [facility] Hospitalmonocyte count, blood, cbfeeuogi3358-41-64 09:47:00 Test Item Value Reference Range Interpretation Comments monocyte count, blood, automated 0.5 X10E3/UL 0.1-0.9 (test code = 742-7) [facility] Hospitallymphocyte count, blood, ltisuizmi4580-98-99 09:47:00 Test Item Value Reference Range Interpretation Comments lymphocyte count, blood, 0.9 X10E3/UL 0.7-3.1 automated (test code = 731-0) [facility] HospitalAbsolute Truozdkvohk8800-25-53 09:47:00 Test Item Value Reference Range Interpretation Comments Absolute Neutrophils (test code 1.4 X10E3/UL 1.4-7.0 = 22918-6) [facility]basophils as percent of blood bdkysfsauu8405-33-98 09:47:00 Test Item Value Reference Range Interpretation Comments basophils as percent of blood 1 % leukocytes (test code = 707-0) [facility] Hospitaleosinophils as percent of blood rglmmwotet6860-76-38 09:47:00 Test Item Value Reference Range Interpretation Comments eosinophils as percent of blood 10 % leukocytes (test code = 713-8) [facility] Hospitalmonocytes as percent of blood sqxempgnjo6004-62-01 09:47:00 Test Item Value Reference Range Interpretation Comments monocytes as percent of blood 15 % leukocytes (test code = 5905-5) [facility] Hospitallymphocytes as percent of blood kiiqkewgaw7785-49-73 09:47:00 Test Item Value Reference Range Interpretation Comments lymphocytes as percent of blood 29 % leukocytes (test code = 736-9) [facility] Hospitalneutrophils as percent of blood tmbujcecet6746-07-92 09:47:00 Test Item Value Reference Range Interpretation Comments neutrophils as percent of blood 45 % leukocytes (test code = 770-8) [facility] Hospitalplatelet jzjfw6403-45-80 09:47:00 Test Item Value Reference Range Interpretation Comments platelet count (test code = 95 X10E3/UL 150-379 LL 777-3) [facility]red blood cell distribution hvlla6013-90-17 09:47:00 Test Item Value Reference Range Interpretation Comments red blood cell distribution width 14.6 % 12.3-15.4 (test code = 788-0) [facility] Hospitalmean corpuscular hemoglobin concentration, KWF4634-40-47 09:47:00 Test Item Value Reference Range Interpretation Comments mean corpuscular hemoglobin 37.3 G/DL 31.5-35.7 H concentration, RBC (test code = 786-4) [facility]mean corpuscular hemoglobin, [id number] 09:47:00 Test Item Value Reference Range Interpretation Comments mean corpuscular hemoglobin, RBC 34.8 pg 26.6-33.0 H (test code = 785-6) [facility]mean corpuscular volume, [id number] 09:47:00 Test Item Value Reference Range Interpretation Comments mean corpuscular volume, RBC (test code 93 fL 79-97 = 787-2) [facility]hematocrit, acspv7678-93-43 09:47:00 Test Item Value Reference Range Interpretation Comments hematocrit, blood (test code = 4544-3) 36.7 % 37.5-51.0 L [facility]hemoglobin, xdgge1654-92-10 09:47:00 Test Item Value Reference Range Interpretation Comments hemoglobin, blood (test code = 13.7 g/dL 13.0-17.7 718-7) [facility] Hospitalerythrocyte (RBC) pbjll3712-02-27 09:47:00 Test Item Value Reference Range Interpretation Comments erythrocyte (RBC) count (test 3.94 X10E6/UL 4.14-5.80 L code = 789-8) [facility]leukocyte count, iqdml1186-35-86 09:47:00 Test Item Value Reference Range Interpretation Comments leukocyte count, blood (test 3.1 X10E3/UL 3.4-10.8 L code = 6690-2) [facility] HospitalT-helper cells (CD4) as percent of blood lymphocytes 2018-09-05 09:47:00 Test Item Value Reference Range Interpretation Comments T-helper cells (CD4) as percent of 10.1 % 30.8-58.5 L blood lymphocytes (test code = 8123-2) [facility] HospitalT-helper cells (CD4) aymmf0294-75-83 09:47:00 Test Item Value Reference Range Interpretation Comments T-helper cells (CD4) count (test code 91 /UL 359-1519 L = 63303-3) [facility] HospitalHIV genotype xvsduv1204-13-30 09:47:00 Test Item Value Reference Range Interpretation Comments HIV genotype result (test code = GENRTI 07424) [facility] HospitalHIV-1RNA, serum, by PCR, pmzyyjzmvzkg9141-99-17 09:47:00 Test Item Value Reference Range Interpretation Comments HIV-1RNA, serum, by PCR, 3060 /mL quantitative (test code = 71293) [facility] HospitalCD4/CD8 uoyft6645-76-92 09:47:00 Test Item Value Reference Range Interpretation Comments CD4/CD8 ratio (test code 0.16 (unknown unit) 0.92-3.72 L = 37555) [facility] HospitalT-suppressor cells (CD8) as percent of blood lymphocytes 2018-09-05 09:47:00 Test Item Value Reference Range Interpretation Comments T-suppressor cells (CD8) as percent of 64.1 % 12.0-35.5 H blood lymphocytes (test code = 3517) [facility]absolute [id number] 09:47:00 Test Item Value Reference Range Interpretation Comments absolute CD8 (test code = 577 (unknown unit) 695-864 32032) [facility] HospitalNeisseria gonorrhoeae DNA kiiri4915-26-65 11:54:00 Test Item Value Reference Range Interpretation Comments Neisseria gonorrhoeae DNA probe Negative Negative (test code = 39262-7) [facility]chlamydia DNA dtjiw2685-90-19 11:54:00 Test Item Value Reference Range Interpretation Comments chlamydia DNA probe (test code = Negative Negative 11306-5) [facility] Hospitalhepatitis B surface alugrdr7703-28-89 11:50:00 Test Item Value Reference Range Interpretation Comments hepatitis B surface antigen (test Negative Negative code = 79) [facility] HospitalTreponema pallidum particle agglutination assay (TPPA test)2018-07-11 13:42:00 Test Item Value Reference Range Interpretation Comments Treponema pallidum particle Positive Negative A agglutination assay (TPPA test) (test code = 65257-9) [facility] Hospitalrapid plasma reagin antibody, pbcqh7478-04-08 13:42:00 Test Item Value Reference Range Interpretation Comments rapid plasma reagin 1:2 See_Comment H [Automa robert message] The antibody, serum (test system which generated code = 5291-0) this result t ransmitted reference range : NonRea<1:1. The reference range was not u sed to interpret this result as normal/abnormal . [facility]hemoglobin A1C, blood, as % of total cnkpmhcslh5511-16-56 13:42:00 Test Item Value Reference Range Interpretation Comments hemoglobin A1C, blood, as % of total 5.1 % 4.8-5.6 hemoglobin (test code = 4548-4) [facility]prothrombin time (patient)2018-07-11 13:42:00 Test Item Value Reference Range Interpretation Comments prothrombin time (patient) (test code 10.4 s 9.1-12.0 = 5902-2) [facility]international normalized ratio (INR)2018-07-11 13:42:00 Test Item Value Reference Range Interpretation Comments international normalized 1.0 (unknown unit) 0.8-1.2 ratio (INR) (test code = 6301-6) [facility] HospitalLDL cholesterol, qmjeg1854-95-01 13:42:00 Test Item Value Reference Range Interpretation Comments LDL cholesterol, serum (test TRIGHI mg/dL 0-99 code = 2089-1) [facility]very low density pvtkaxoucxif0389-25-28 13:42:00 Test Item Value Reference Range Interpretation Comments very low density lipoproteins VLDLCH mg/dL 5-40 (test code = 2091-7) [facility] HospitalHDL cholesterol, prbis7527-18-66 13:42:00 Test Item Value Reference Range Interpretation Comments HDL cholesterol, serum (test code = 22 mg/dL >39 L 2084-9) [facility]triglyceride, serum, hhtrjsj0396-81-54 13:42:00 Test Item Value Reference Range Interpretation Comments triglyceride, serum, fasting (test 480 mg/dL 0-149 H code = 2571-8) [facility]cholesterol, osgoe2031-44-42 13:42:00 Test Item Value Reference Range Interpretation Comments cholesterol, serum (test code = 139 mg/dL 712-842 7436-3) [facility]alanine aminotransferase (SGPT), tbdjs8720-02-43 13:42:00 Test Item Value Reference Range Interpretation Comments alanine aminotransferase (SGPT), serum 39 1/L 0-44 (test code = 1742-6) [facility] Hospitalaspartate aminotransferase (SGOT), ivutl1403-06-58 13:42:00 Test Item Value Reference Range Interpretation Comments aspartate aminotransferase (SGOT), 46 1/L 0-40 H serum (test code = 1920-8) [facility] Healthalkaline phosphatase, oakjp5117-78-74 13:42:00 Test Item Value Reference Range Interpretation Comments alkaline phosphatase, serum (test code 78 1/L 39-117 = 1783-0) [facility] Healthbilirubin, serum, kktij4298-93-01 13:42:00 Test Item Value Reference Range Interpretation Comments bilirubin, serum, total (test code <0.2 mg/dL 0.0-1.2 = 1975-2) [facility] Healthalbumin/globulin ratio, kkcsv1583-73-82 13:42:00 Test Item Value Reference Range Interpretation Comments albumin/globulin ratio, 1.2 (unknown unit) 1.2-2.2 serum (test code = 1759-0) [facility] Healthglobulin, taxqw5420-90-42 13:42:00 Test Item Value Reference Range Interpretation Comments globulin, serum (test code 3.2 (unknown unit) 1.5-4.5 = 2336-6) [facility] Healthalbumin, mkaaq4924-95-17 13:42:00 Test Item Value Reference Range Interpretation Comments albumin, serum (test code = 1751-7) 3.8 g/dL 3.5-5.5 [facility]protein, total, yqsrd6915-40-16 13:42:00 Test Item Value Reference Range Interpretation Comments protein, total, serum (test code = 7.0 g/dL 6.0-8.5 2885-2) [facility] Healthcalcium, jqzga1080-29-06 13:42:00 Test Item Value Reference Range Interpretation Comments calcium, serum (test code = 1999-8) 8.7 mg/dL 8.7-10.2 [facility], venous [id number] 13:42:00 Test Item Value Reference Range Interpretation Comments carbon dioxide, venous blood (test 21 mmol/L code = 2026-1) [facility]chloride, [id number] 13:42:00 Test Item Value Reference Range Interpretation Comments chloride, serum (test code = 105 mmol/L 96-106 5-0) [facility]potassium, [id number] 13:42:00 Test Item Value Reference Range Interpretation Comments potassium, serum (test code = 4.1 mmol/L 3.5-5.2 2823-3) [facility] Hospitalsodium, [id number] 13:42:00 Test Item Value Reference Range Interpretation Comments sodium, serum (test code = 2951-2) 141 mmol/L 134-144 [facility] Hospitalurea nitrogen/creatinine ratio, rnjyl8722-77-50 13:42:00 Test Item Value Reference Range Interpretation Comments urea nitrogen/creatinine 11 (unknown unit) 9-20 ratio, serum (test code = 3097-3) [facility] HealtheGFR if Wbethnrz1912-82-34 13:42:00 Test Item Value Reference Range Interpretation Comments eGFR if 122 mL/min/{1.73 m2} >59 (test code = 27200-9) [facility] HospitalEstimated Glomerular Filtration Rate (calc)2018-07-11 13:42:00 Test Item Value Reference Range Interpretation Comments Estimated Glomerular 105 mL/min/{1.73 m2} >59 Filtration Rate (calc) (test code = 77856-8) [facility]creatinine, [id number] 13:42:00 Test Item Value Reference Range Interpretation Comments creatinine, serum (test code = 0.82 mg/dL 0.76-1.27 2160-0) [facility]urea nitrogen, [id number] 13:42:00 Test Item Value Reference Range Interpretation Comments urea nitrogen, blood (test code = 9 mg/dL 6-24 3094-0) [facility]blood glucose, kmbest2953-19-75 13:42:00 Test Item Value Reference Range Interpretation Comments blood glucose, random (test code = 88 mg/dL 65-99 2339-0) [facility] Hospitalimmature granulocytes, percentage of total cells, blood 2018-07-11 13:42:00 Test Item Value Reference Range Interpretation Comments immature granulocytes, percentage of 0 % total cells, blood (test code = 95378-5) [facility]basophil count, [id number] 13:42:00 Test Item Value Reference Range Interpretation Comments basophil count, absolute (test 0.0 x10E3/uL 0.0-0.2 code = 11855-0) [facility] HealthEosinophil Absolute Zfovs6622-13-06 13:42:00 Test Item Value Reference Range Interpretation Comments Eosinophil Absolute Count (test 0.3 X10E3/UL 0.0-0.4 code = 71511-4) [facility] Healthmonocyte count, blood, dealrdzsc7797-18-20 13:42:00 Test Item Value Reference Range Interpretation Comments monocyte count, blood, automated 0.3 X10E3/UL 0.1-0.9 (test code = 742-7) [facility] Healthlymphocyte count, blood, nmjowokie5989-07-21 13:42:00 Test Item Value Reference Range Interpretation Comments lymphocyte count, blood, 0.9 X10E3/UL 0.7-3.1 automated (test code = 731-0) [facility] HealthAbsolute Xxwbbdmuvue5340-02-51 13:42:00 Test Item Value Reference Range Interpretation Comments Absolute Neutrophils (test code 1.2 X10E3/UL 1.4-7.0 L = 47058-3) [facility] Healthbasophils as percent of blood mghnpuxkzn6597-59-98 13:42:00 Test Item Value Reference Range Interpretation Comments basophils as percent of blood 0 % leukocytes (test code = 707-0) [facility] Healtheosinophils as percent of blood huhtzlqpjy0177-12-82 13:42:00 Test Item Value Reference Range Interpretation Comments eosinophils as percent of blood 10 % leukocytes (test code = 713-8) [facility] Healthmonocytes as percent of blood kwjyyjsatb7304-52-45 13:42:00 Test Item Value Reference Range Interpretation Comments monocytes as percent of blood 12 % leukocytes (test code = 5905-5) [facility] Healthlymphocytes as percent of blood txldgkfoes2489-81-67 13:42:00 Test Item Value Reference Range Interpretation Comments lymphocytes as percent of blood 34 % leukocytes (test code = 736-9) [facility] Healthneutrophils as percent of blood hbeclvbdzo5248-63-63 13:42:00 Test Item Value Reference Range Interpretation Comments neutrophils as percent of blood 44 % leukocytes (test code = 770-8) [facility] Healthplatelet gqopf8682-97-89 13:42:00 Test Item Value Reference Range Interpretation Comments platelet count (test code = 61 X10E3/UL 150-379 LL 777-3) [facility]red blood cell distribution vuzet9345-49-73 13:42:00 Test Item Value Reference Range Interpretation Comments red blood cell distribution width 13.4 % 12.3-15.4 (test code = 788-0) [facility] corpuscular hemoglobin concentration, [id number] 13:42:00 Test Item Value Reference Range Interpretation Comments mean corpuscular hemoglobin 35.1 G/DL 31.5-35.7 concentration, RBC (test code = 786-4) [facility], [id number] 13:42:00 Test Item Value Reference Range Interpretation Comments mean corpuscular hemoglobin, RBC 31.8 pg 26.6-33.0 (test code = 785-6) [facility] corpuscular volume, [id number] 13:42:00 Test Item Value Reference Range Interpretation Comments mean corpuscular volume, RBC (test code 91 fL 79-97 = 787-2) [facility]hematocrit, yyrov0670-19-40 13:42:00 Test Item Value Reference Range Interpretation Comments hematocrit, blood (test code = 4544-3) 38.8 % 37.5-51.0 [facility]hemoglobin, [id number] 13:42:00 Test Item Value Reference Range Interpretation Comments hemoglobin, blood (test code = 13.6 g/dL 13.0-17.7 718-7) [facility] Hospitalerythrocyte (RBC) [id number] 13:42:00 Test Item Value Reference Range Interpretation Comments erythrocyte (RBC) count (test 4.28 X10E6/UL 4.14-5.80 code = 789-8) [facility] Hospitalleukocyte count, wkmje4442-23-30 13:42:00 Test Item Value Reference Range Interpretation Comments leukocyte count, blood (test 2.7 X10E3/UL 3.4-10.8 L code = 6690-2) [facility] HospitalT-helper cells (CD4) as percent of blood lymphocytes 2018-07-11 13:42:00 Test Item Value Reference Range Interpretation Comments T-helper cells (CD4) as percent of 6.2 % 30.8-58.5 L blood lymphocytes (test code = 8123-2) [facility] HospitalT-helper cells (CD4) khzvq2820-20-65 13:42:00 Test Item Value Reference Range Interpretation Comments T-helper cells (CD4) count (test code 56 /UL 359-1519 L = 31820-0) [facility] HospitalHIV-1RNA, serum, by PCR, gmdpfbfrhind1401-11-94 13:42:00 Test Item Value Reference Range Interpretation Comments HIV-1RNA, serum, by PCR, 503903 /mL quantitative (test code = 89959) [facility] C virus genotype, PCR (Polymerase Chain Reaction)2018-07-11 13:42:00 Test Item Value Reference Range Interpretation Comments Hepatitis C virus genotype, PCR 1a (Polymerase Chain Reaction) (test code = 25294) [facility] C virus (HCV) RNA, PCR, lehnndavucko6748-87-26 13:42:00 Test Item Value Reference Range Interpretation Comments Hepatitis C virus (HCV) RNA, 7827119 [iU]/mL PCR, quantitative (test code = 03173) [facility] HospitalCD4/CD8 lwjmo6882-77-27 13:42:00 Test Item Value Reference Range Interpretation Comments CD4/CD8 ratio (test code 0.09 (unknown unit) 0.92-3.72 L = 47544) [facility] HospitalT-suppressor cells (CD8) as percent of blood lymphocytes 2018-07-11 13:42:00 Test Item Value Reference Range Interpretation Comments T-suppressor cells (CD8) as percent of 68.0 % 12.0-35.5 H blood lymphocytes (test code = 3517) [facility] Hospitalabsolute [id number] 13:42:00 Test Item Value Reference Range Interpretation Comments absolute CD8 (test code = 612 (unknown unit) [phone]) [facility] HospitalQuantiferon Gold TB blood test for tuberculosis screening 2018-05-16 16:16:00 Test Item Value Reference Range Interpretation Comments Quantiferon Gold TB blood test for Negative Negative tuberculosis screening (test code = 58708-8) [facility] HospitalNeisseria gonorrhoeae DNA [id number] 14:46:00 Test Item Value Reference Range Interpretation Comments Neisseria gonorrhoeae DNA probe Negative Negative (test code = 84005-6) [facility] Hospitalchlamydia DNA [id number] 14:46:00 Test Item Value Reference Range Interpretation Comments chlamydia DNA probe (test code = Negative Negative 15666-6) [facility] HospitalTreponema pallidum Ab, [id number] 14:34:00 Test Item Value Reference Range Interpretation Comments Treponema pallidum Ab, serum (test Reactive Non Reactive A code = 70347-1) [facility] Hospitalrapid plasma reagin antibody, [id number] 14:34:00 Test Item Value Reference Range Interpretation Comments rapid plasma reagin 1:4 See_Comment H [Automa robert message] The antibody, serum (test system which generated code = 5291-0) this result t ransmitted reference range : NonRea<1:1. The reference range was not u sed to interpret this result as normal/abnormal . [facility] Hospitalhepatitis C antibody, [id number] 14:34:00 Test Item Value Reference Range Interpretation Comments hepatitis C antibody, serum (test code >11.0 0.0-0.9 H = 5199-5) [facility] Hospitalalanine aminotransferase (SGPT), [id number] 14:34:00 Test Item Value Reference Range Interpretation Comments alanine aminotransferase (SGPT), serum 41 1/L 0-44 (test code = 1742-6) [facility] Hospitalaspartate aminotransferase (SGOT), [id number] 14:34:00 Test Item Value Reference Range Interpretation Comments aspartate aminotransferase (SGOT), 45 1/L 0-40 H serum (test code = 1920-8) [facility] Hospitalalkaline phosphatase, yjvhj0239-02-75 14:34:00 Test Item Value Reference Range Interpretation Comments alkaline phosphatase, serum (test code 78 1/L 39-117 = 1783-0) [facility]bilirubin, serum, gmoup2631-34-05 14:34:00 Test Item Value Reference Range Interpretation Comments bilirubin, serum, total (test code 0.3 mg/dL 0.0-1.2 = 1975-2) [facility]albumin/globulin ratio, [id number] 14:34:00 Test Item Value Reference Range Interpretation Comments albumin/globulin ratio, 1.4 (unknown unit) 1.2-2.2 serum (test code = 1759-0) [facility] Healthglobulin, rudtr4900-69-16 14:34:00 Test Item Value Reference Range Interpretation Comments globulin, serum (test code 3.1 (unknown unit) 1.5-4.5 = 2336-6) [facility] Healthalbumin, [id number] 14:34:00 Test Item Value Reference Range Interpretation Comments albumin, serum (test code = 1751-7) 4.4 g/dL 3.5-5.5 [facility] Healthprotein, total, zjilf5770-95-47 14:34:00 Test Item Value Reference Range Interpretation Comments protein, total, serum (test code = 7.5 g/dL 6.0-8.5 2885-2) [facility] Healthcalcium, kkykc0337-50-02 14:34:00 Test Item Value Reference Range Interpretation Comments calcium, serum (test code = 1999-8) 8.9 mg/dL 8.7-10.2 [facility] Hospitalcarbon dioxide, venous exlns5322-11-87 14:34:00 Test Item Value Reference Range Interpretation Comments carbon dioxide, venous blood (test 20 mmol/L code = 2026-1) [facility] Healthchloride, mlavv2684-49-39 14:34:00 Test Item Value Reference Range Interpretation Comments chloride, serum (test code = 100 mmol/L 96-106 5-0) [facility] Healthpotassium, pwcrc1742-84-27 14:34:00 Test Item Value Reference Range Interpretation Comments potassium, serum (test code = 4.2 mmol/L 3.5-5.2 2823-3) [facility] Healthsodium, qylhe8624-95-50 14:34:00 Test Item Value Reference Range Interpretation Comments sodium, serum (test code = 2951-2) 139 mmol/L 134-144 [facility]urea nitrogen/creatinine ratio, weqvz0808-61-44 14:34:00 Test Item Value Reference Range Interpretation Comments urea nitrogen/creatinine 10 (unknown unit) 9-20 ratio, serum (test code = 3097-3) [facility] HealtheGFR if Sszeninb0559-94-50 14:34:00 Test Item Value Reference Range Interpretation Comments eGFR if 121 mL/min/{1.73 m2} >59 (test code = 97101-3) [facility] HospitalEstimated Glomerular Filtration Rate (calc)2018-05-02 14:34:00 Test Item Value Reference Range Interpretation Comments Estimated Glomerular 105 mL/min/{1.73 m2} >59 Filtration Rate (calc) (test code = 39335-6) [facility] Hospitalcreatinine, [id number] 14:34:00 Test Item Value Reference Range Interpretation Comments creatinine, serum (test code = 0.83 mg/dL 0.76-1.27 2160-0) [facility] Hospitalurea nitrogen, gzplq2213-30-90 14:34:00 Test Item Value Reference Range Interpretation Comments urea nitrogen, blood (test code = 8 mg/dL 6-24 3094-0) [facility]blood glucose, xwpxfb7541-77-79 14:34:00 Test Item Value Reference Range Interpretation Comments blood glucose, random (test code = 90 mg/dL 65-99 2339-0) [facility] Hospitalimmature granulocytes, percentage of total cells, blood 2018-05-02 14:34:00 Test Item Value Reference Range Interpretation Comments immature granulocytes, percentage of 0 % total cells, blood (test code = 26114-6) [facility] Hospitalbasophil count, kzqtiruy9177-47-39 14:34:00 Test Item Value Reference Range Interpretation Comments basophil count, absolute (test 0.0 x10E3/uL 0.0-0.2 code = 62404-5) [facility] HospitalEosinophil Absolute [id number] 14:34:00 Test Item Value Reference Range Interpretation Comments Eosinophil Absolute Count (test 0.3 X10E3/UL 0.0-0.4 code = 92949-8) [facility] Hospitalmonocyte count, blood, tptjhyscm1964-27-22 14:34:00 Test Item Value Reference Range Interpretation Comments monocyte count, blood, automated 0.5 X10E3/UL 0.1-0.9 (test code = 742-7) [facility] Hospitallymphocyte count, blood, adnximngo7591-56-50 14:34:00 Test Item Value Reference Range Interpretation Comments lymphocyte count, blood, 0.8 X10E3/UL 0.7-3.1 automated (test code = 731-0) [facility] HospitalAbsolute Wlmuulqkpjh1185-94-60 14:34:00 Test Item Value Reference Range Interpretation Comments Absolute Neutrophils (test code 2.3 X10E3/UL 1.4-7.0 = 41362-6) [facility] Hospitalbasophils as percent of blood kclqarcbut3733-65-37 14:34:00 Test Item Value Reference Range Interpretation Comments basophils as percent of blood 0 % leukocytes (test code = 707-0) [facility] Hospitaleosinophils as percent of blood wboeoithrn9584-87-40 14:34:00 Test Item Value Reference Range Interpretation Comments eosinophils as percent of blood 7 % leukocytes (test code = 713-8) [facility] Hospitalmonocytes as percent of blood bgnhvkxzfg3199-54-50 14:34:00 Test Item Value Reference Range Interpretation Comments monocytes as percent of blood 14 % leukocytes (test code = 5905-5) [facility] Hospitallymphocytes as percent of blood rhapmjpwqc5949-01-64 14:34:00 Test Item Value Reference Range Interpretation Comments lymphocytes as percent of blood 19 % leukocytes (test code = 736-9) [facility] Hospitalneutrophils as percent of blood vmuwzwvjmj0436-90-11 14:34:00 Test Item Value Reference Range Interpretation Comments neutrophils as percent of blood 60 % leukocytes (test code = 770-8) [facility] Hospitalplatelet spodd2328-04-94 14:34:00 Test Item Value Reference Range Interpretation Comments platelet count (test code = 87 X10E3/UL 150-379 LL 777-3) [facility] Hospitalred blood cell distribution iisxd0192-67-32 14:34:00 Test Item Value Reference Range Interpretation Comments red blood cell distribution width 13.7 % 12.3-15.4 (test code = 788-0) [facility] corpuscular hemoglobin concentration, [id number] 14:34:00 Test Item Value Reference Range Interpretation Comments mean corpuscular hemoglobin 36.1 G/DL 31.5-35.7 H concentration, RBC (test code = 786-4) [facility] corpuscular hemoglobin, [id number] 14:34:00 Test Item Value Reference Range Interpretation Comments mean corpuscular hemoglobin, RBC 34.1 pg 26.6-33.0 H (test code = 785-6) [facility] Hospitalmean corpuscular volume, [id number] 14:34:00 Test Item Value Reference Range Interpretation Comments mean corpuscular volume, RBC (test code 94 fL 79-97 = 787-2) [facility] Hospitalhematocrit, vjxxr3837-03-73 14:34:00 Test Item Value Reference Range Interpretation Comments hematocrit, blood (test code = 4544-3) 40.4 % 37.5-51.0 [facility] Hospitalhemoglobin, [id number] 14:34:00 Test Item Value Reference Range Interpretation Comments hemoglobin, blood (test code = 14.6 g/dL 13.0-17.7 718-7) [facility] Hospitalerythrocyte (RBC) jkqzy4450-81-26 14:34:00 Test Item Value Reference Range Interpretation Comments erythrocyte (RBC) count (test 4.28 X10E6/UL 4.14-5.80 code = 789-8) [facility] Hospitalleukocyte count, wunwp3547-70-38 14:34:00 Test Item Value Reference Range Interpretation Comments leukocyte count, blood (test 3.9 X10E3/UL 3.4-10.8 code = 6690-2) [facility] HospitalT-helper cells (CD4) as percent of blood lymphocytes 2018-05-02 14:34:00 Test Item Value Reference Range Interpretation Comments T-helper cells (CD4) as percent of 8.1 % 30.8-58.5 L blood lymphocytes (test code = 8123-2) [facility] HospitalT-helper cells (CD4) zbzmt1596-01-16 14:34:00 Test Item Value Reference Range Interpretation Comments T-helper cells (CD4) count (test code 65 /UL 359-1519 L = 18087-7) [facility] Hospitalhepatitis A antibody, [id number] 14:34:00 Test Item Value Reference Range Interpretation Comments hepatitis A antibody, total (test Positive Negative A code = 75) [facility] Hospitalhepatitis B core antibody, [id number] 14:34:00 Test Item Value Reference Range Interpretation Comments hepatitis B core antibody, total Negative Negative (test code = 77) [facility] Hospitalhepatitis B surface ojorffk5717-06-16 14:34:00 Test Item Value Reference Range Interpretation Comments hepatitis B surface antigen (test Negative Negative code = 79) [facility] HospitalHIV-2 antibodies, western kggj5833-59-97 14:34:00 Test Item Value Reference Range Interpretation Comments HIV-2 antibodies, western blot (test Negative Negative code = 87313) [facility] HospitalHIV-1/HIV-2 Ab, [id number] 14:34:00 Test Item Value Reference Range Interpretation Comments HIV-1/HIV-2 Ab, serum (test code = Positive Negative A 3399) [facility] HospitalHIV-CMIA (Chemiluminescent Microparticle Immuno Assay) 2018-05-02 14:34:00 Test Item Value Reference Range Interpretation Comments HIV-CMIA (Chemiluminescent Reactive Non Reactive A Microparticle Immuno Assay) (test code = 489605) [facility]human leukocyte antigen [id number] 14:34:00 Test Item Value Reference Range Interpretation Comments human leukocyte antigen B57 (test Negative code = 238184) [facility] Hospitaltoxoplasma gondii antibody, [id number] 14:34:00 Test Item Value Reference Range Interpretation Comments toxoplasma gondii antibody, IgG (test <3.0 0.0-7.1 code = 2430) [facility]hepatitis B surface xuufxmrs4786-98-67 14:34:00 Test Item Value Reference Range Interpretation Comments hepatitis B surface antibody (test Reactive code = 78) [facility] HospitalHIV-1RNA, serum, by PCR, ygindninvbvf2172-04-31 14:34:00 Test Item Value Reference Range Interpretation Comments HIV-1RNA, serum, by PCR, 360704 /mL quantitative (test code = 73731) [facility] HospitalCD4/CD8 [id number] 14:34:00 Test Item Value Reference Range Interpretation Comments CD4/CD8 ratio (test code 0.13 (unknown unit) 0.92-3.72 L = 88347) [facility] HospitalT-suppressor cells (CD8) as percent of blood lymphocytes 2018-05-02 14:34:00 Test Item Value Reference Range Interpretation Comments T-suppressor cells (CD8) as percent of 64.2 % 12.0-35.5 H blood lymphocytes (test code = 3517) [facility] Hospitalabsolute [id number] 14:34:00 Test Item Value Reference Range Interpretation Comments absolute CD8 (test code = 514 (unknown unit) [phone]) [facility]
[2022-05-24] MEDS ORDERED: DIPHENHYDRAMINE 50 MG/ML VIAL ONE (00:10)
[2022-05-24] MEDS ORDERED: METOCLOPRAMIDE 10 MG/2mL INJ ONE (00:10)
[2022-05-24] MEDS ORDERED: KETOROLAC 30 MG/ML INJ ONE (00:11)
[2022-05-24] MEDS ORDERED: NA CHLORIDE 0.9% 1,000 ML ONE (00:11)
[2022-05-24] MEDS ORDERED: NA CHLORIDE 0.9% 50 ML IV ONE (00:13)
[2022-05-24 00:31] LABS: Protime INR 1.29
[2022-05-24 00:41] LABS: Absolute Lymphocytes (CBC) 0.3 K/uL (0.7-4.9); Hematocrit 32.5 % (39.6-49.0); Lymphocytes % 7.2 % (15.3-44.8); MCV 96.9 fL (80-100); MPV 9.5 fL (7.6-11.3); RBC Red Blood Cell Count 3.35 M/uL (4.33-5.43)
[2022-05-24 00:43] LABS: Albumin 2.2 g/dL (3.4-5.0); Bilirubin Total 0.9 mg/dL (0.2-1.0); Potassium 3.7 mmol/L (3.5-5.1); Protein, Total 7.7 g/dL (6.4-8.2)
[2022-05-24 01:16] LABS: Blood Morphology Comment NOT SEEN (NOT SEEN); Platelet Estimate DECR; White Blood Cell Scan OK (OK)
--- NOTE | 2022-05-24 02:38 | EDPHYS ---
Physician Documentation [facility] Name: Fly Montes Age: 51 yrs Sex: Male : 1970 Arrival Date: 05/23/2022 Time: 19:34 Bed 13 Private MD: ED Physician Codey Matta HPI: 05/23 23:13 This 51 yrs old Male presents to ER via Ambulatory with complaints of david Headache. 23:13 The patient complains of pain to the top of head, forehead, left frontal area, left david side of the back of head, left occipital area, left base of the skull, right frontal area, right side of the back of head, right occipital area and right base of the skull. The patient describes the headache as constant. Onset: The symptoms/episode began/occurred 10 day(s) ago. Associated signs and symptoms: Pertinent positives: fever. Severity of symptoms: At its worst the pain was mild, moderate, in the emergency department the pain is unchanged. Headache History: The patient has had previous headaches and this one is similar to previous episodes. The symptoms are alleviated by nothing. the symptoms are aggravated by alcohol. The patient has not experienced similar symptoms in the past. Historical: - Home Meds: 22:45 Azithromycin Oral [Active]; Reyataz Oral [Active]; ethambutol Oral [Active]; Rifampin kd3 Oral [Active]; Truvada Oral [Active]; - PMHx: 20:30 HIV; tw5 - Immunization history:: Flu vaccine is up to date. - Social history:: Smoking status: Patient reports the use of cigarette tobacco products, smokes one pack cigarettes per day. Reported history of juuling and/or vaping. - Family history:: not pertinent. ROS: 23:13 Constitutional: Negative for fever, chills, and weight loss, Eyes: Negative for injury, david pain, redness, and discharge, ENT: Negative for injury, pain, and discharge, Neck: Negative for injury, pain, and swelling, Cardiovascular: Negative for chest pain, palpitations, and edema, Respiratory: Negative for shortness of breath, cough, wheezing, and pleuritic chest pain, Abdomen/GI: Negative for abdominal pain, nausea, vomiting, diarrhea, and constipation, Back: Negative for injury and pain, : Negative for injury, bleeding, discharge, and swelling, MS/Extremity: Negative for injury and deformity, Skin: Negative for injury, rash, and discoloration, Psych: Negative for depression, anxiety, suicide ideation, homicidal ideation, and hallucinations, Allergy/Immunology: Negative for hives, rash, and allergies, Endocrine: Negative for neck swelling, polydipsia, polyuria, polyphagia, and marked weight changes, Hematologic/Lymphatic: Negative for swollen nodes, abnormal bleeding, and unusual bruising. 23:13 Neuro: Positive for headache. Exam: 23:13 Constitutional: This is a well developed, well nourished patient who is awake, alert, david and in no acute distress. Head/Face: Normocephalic, atraumatic. Eyes: Pupils equal round and reactive to light, extra-ocular motions intact. Lids and lashes normal. Conjunctiva and sclera are non-icteric and not injected. Cornea within normal limits. Periorbital areas with no swelling, redness, or edema. ENT: Nares patent. No nasal discharge, no septal abnormalities noted. Tympanic membranes are normal and external auditory canals are clear. Oropharynx with no redness, swelling, or masses, exudates, or evidence of obstruction, uvula midline. Mucous membranes moist. Neck: Trachea midline, no thyromegaly or masses palpated, and no cervical lymphadenopathy. Supple, full range of motion without nuchal rigidity, or vertebral point tenderness. No Meningismus. Chest/axilla: Normal chest wall appearance and motion. Nontender with no deformity. No lesions are appreciated. Cardiovascular: Regular rate and rhythm with a normal S1 and S2. No gallops, murmurs, or rubs. Normal PMI, no JVD. No pulse deficits. Respiratory: Lungs have equal breath sounds bilaterally, clear to auscultation and percussion. No rales, rhonchi or wheezes noted. No increased work of breathing, no retractions or nasal flaring. Abdomen/GI: Soft, non-tender, with normal bowel sounds. No distension or tympany. No guarding or rebound. No evidence of tenderness throughout. Back: No spinal tenderness. No costovertebral tenderness. Full range of motion. Male : Normal genitalia with no discharge or lesions. Skin: Warm, dry with normal turgor. Normal color with no rashes, no lesions, and no evidence of cellulitis. MS/ Extremity: Pulses equal, no cyanosis. Neurovascular intact. Full, normal range of motion. Neuro: Awake and alert, GCS 15, oriented to person, place, time, and situation. Cranial nerves II-XII grossly intact. Motor strength 5/5 in all extremities. Sensory grossly intact. Cerebellar exam normal. Normal gait. Psych: Awake, alert, with orientation to person, place and time. Behavior, mood, and affect are within normal limits. 23:18 Neck: ROM/movement: is normal, is supple, without pain, no range of motions david limitations, no meningismus, no nuchal rigidity, negative Brudzinski's sign, negative Kernig's sign. Vital Signs: 20:28 BP 107 / 74; Pulse 114; Resp 18; Temp 98.4; Pulse Ox 99% ; Weight 72.57 kg; Height 5 tw5 ft. 11 in. (180.34 cm); Pain 05/21; 05/24 00:26 BP 103 / 79; Pulse 98; Resp 14; Temp 98.0(O); Pulse Ox 100% on R/A; kd3 02:56 BP 102 / 70; Pulse 91; Resp 16 S; Pulse Ox 100% on R/A; lg3 05/23 20:28 Body Mass Index 22.32 (72.57 kg, 180.34 cm) tw5 [place] Coma Score: 05/23 23:18 Eye Response: spontaneous(4). Verbal Response: oriented(5). Motor Response: obeys david commands(6). Total: 15. MDM: 22:52 Patient medically screened. david 23:18 Differential diagnosis: cerebral abscess, cervical epidural bleed, cluster headache, david cerebral vascular accident, epidural hematoma, hypertensive headache, intracerebral hemorrhage, meningitis, meningoencephalitis, migraine, neoplasm, subarachnoid bleed, subdural hematoma, temporal arteritis, tension headache, trigeminal neuralgia, vasomotor headache. Data reviewed: vital signs, nurses notes, lab test result(s), radiologic studies, CT scan. Data interpreted: environmental monitoring technician: rate is 114 beats/min, Pulse oximetry: on room air is 99 %. Counseling: I had a detailed discussion with the patient and/or guardian regarding: the historical points, exam findings, and any diagnostic results supporting the discharge/admit diagnosis, lab results, radiology results. 05/24 02:33 ED course: pt refused the spinal tap and transfer , I explained at length as to why david this was necessary, HE STILL REFUSED. 05/23 23:13 Order name: CBC with Diff [facility] 05/23 23:13 Order name: Comprehensive Metabolic Panel [facility] 05/23 23:13 Order name: PT-INR [facility] 05/23 23:13 Order name: SARS-COV-2 RT PCR (Document "Date of Onset" if Symptomatic) [facility] 05/23 23:16 Order name: Flu [facility] 05/23 23:16 Order name: Strep [facility] 05/23 23:20 Order name: Lactate [facility] 05/23 23:20 Order name: Blood Culture Adult (2) [facility] 05/24 00:32 Order name: Protime (+INR); Complete Time: 01:07 EDMS 05/24 00:43 Order name: Comprehensive Metabolic Panel; Complete Time: 01:07 EDMS 05/24 00:45 Order name: Lactate; Complete Time: 01:07 EDMS 05/24 00:52 Order name: CBC with Automated Diff; Complete Time: 01:23 EDMS 05/23 23:13 Order name: CT Head Brain wo Cont [facility] 05/23 23:20 Order name: Chest Single View XRAY [facility] 05/24 01:02 Order name: SARS-COV-2 RT PCR; Complete Time: 01:07 EDMS 05/24 01:16 Order name: CBC Smear Scan; Complete Time: 01:23 EDMS 05/24 02:37 Order name: Influenza Screen (A EDRI 05/24 02:37 Order name: Group A Streptococcus Rapid Sc EDMS Administered Medications: 00:26 Drug: NS 0.9% 1000 ml Route: IV; Rate: 1 bolus; Site: right antecubital; kd3 00:26 Drug: Ketorolac 30 mg Route: IVP; Site: right antecubital; kd3 00:26 Drug: Benadryl (diphenhydrAMINE) 50 mg Route: IVP; Site: right antecubital; kd3 00:26 Drug: Reglan (metoCLOPramide) 10 mg Route: IVP; Site: right antecubital; kd3 Disposition Summary: 05/24/22 02:37 Discharge Ordered Location: Home david Problem: new david Symptoms: have improved david Condition: Fair david Diagnosis - Headache david - Fever, unspecified david - Unspecified cirrhosis of liver - Hepatitis C david - Secondary thrombocytopenia - Hepatitis C david - Human immunodeficiency virus [HIV] disease david Followup: david - With: Private Physician - When: Upon discharge from the Emergency Department - Reason: Recheck today's complaints, Continuance of care, Re-evaluation by your physician Discharge Instructions: - Discharge Summary Sheet david - Cirrhosis david - Fever, Adult david - General Headache Without Cause david - AIDS and the Nervous System david - Hepatitis C david - General Headache Without Cause, Ngmy-gh-Nxkh david - Hepatitis C, Oaaz-gt-Lpry david Forms: - Medication Reconciliation Form david - Thank You Letter david - Antibiotic Education david - Prescription Opioid Use david Prescriptions: - Zithromax Z-Candido 250 mg Oral Tablet - take 1 tablet by ORAL route as directed for 5 days Day 1 - take two (2) tablets david one time. Day 2, 3, 4 , 5 take one (1) tablet once daily.; 6 tablet; Refills: 0, Product Selection Permitted Signatures: Dispatcher [employer] EDMS Codey Matta MD MD cha Wood, Tiffany tw5 Kanika Mercer RN RN kd3 Corrections: (The following items were deleted from the chart) 00:08 05/23 23:17 SPINAL FLUID PROFILE+LAB.LAB.BRZ ordered. EDMS EDMS 05/24 02:34 05/23 23:14 URINE DRUG SCREEN+UC.LAB.BRZ ordered. EDMS EDMS
--- NOTE | 2022-05-24 02:38 | ER ---
Nurse's Notes [facility] Name: Fly Montes Age: 51 yrs Sex: Male : 1970 Arrival Date: 05/23/2022 Time: 19:34 Bed 13 Private MD: Diagnosis: Headache;Fever, unspecified;Unspecified cirrhosis of liver-Hepatitis C;Secondary thrombocytopenia-Hepatitis C;Human immunodeficiency virus [HIV] disease Presentation: 05/23 20:28 Chief complaint: Patient states: "I am HIV positive and I just have not been feeling tw5 well. I keep waking up in a sweat and I just feel like I am breaking a fever.". Coronavirus screen: Vaccine status: Patient reports receiving the 1st dose of the Covid vaccine. Moderna. Ebola Screen: Patient negative for fever greater than or equal to 101.5 degrees Fahrenheit, and additional compatible Ebola Virus Disease symptoms Patient denies exposure to infectious person. Patient denies travel to an Ebola-affected area in the 21 days before illness onset. Initial Sepsis Screen: Does the patient meet any 2 criteria? HR > 90 bpm. Does the patient have a suspected source of infection? No. Patient's initial sepsis screen is negative. Risk Assessment: Do you want to hurt yourself or someone else? Patient reports no desire to harm self or others. Onset of symptoms was May 21, 2022. 20:28 Method Of Arrival: Ambulatory tw5 20:28 Acuity: ETHAN 3 tw5 Triage Assessment: 20:30 Headache History: Denies prior headaches. General: Appears in no apparent distress. tw5 Behavior is calm, cooperative, appropriate for age, agitated. Pain: Pain currently is 10 out of 10 on a pain scale. Pain began 2-3 days ago. Also complains of "sound is bothering me.". Neuro: Level of Consciousness is awake, alert, obeys commands, Oriented to person, place, time, situation. Historical: - Home Meds: 22:45 Azithromycin Oral [Active]; Reyataz Oral [Active]; ethambutol Oral [Active]; Rifampin kd3 Oral [Active]; Truvada Oral [Active]; - PMHx: 20:30 HIV; tw5 - Immunization history:: Flu vaccine is up to date. - Social history:: Smoking status: Patient reports the use of cigarette tobacco products, smokes one pack cigarettes per day. Reported history of juuling and/or vaping. - Family history:: not pertinent. Screenin:45 Abuse screen: Denies threats or abuse. Denies injuries from another. Nutritional kd3 screening: No deficits noted. Tuberculosis screening: No symptoms or risk factors identified. Fall Risk None identified. Assessment: 22:44 General: Appears uncomfortable, ill, Behavior is calm, cooperative. Pain: Complains of kd3 pain in headache. Neuro: Level of Consciousness is awake, alert, obeys commands, Oriented to person, place, time, situation. Cardiovascular: Patient's skin is warm and dry. Respiratory: Airway is patent Trachea midline Respiratory effort is even, unlabored, Respiratory pattern is regular, symmetrical. 05/24 02:55 Reassessment: Patient appears in no apparent distress at this time. No changes from lg3 previously documented assessment. Patient and/or family updated on plan of care and expected duration. Pain level reassessed. Patient is alert, oriented x 3, equal unlabored respirations, skin warm/dry/pink. Patient states feeling better. Patient states symptoms have improved. Vital Signs: 05/23 20:28 BP 107 / 74; Pulse 114; Resp 18; Temp 98.4; Pulse Ox 99% ; Weight 72.57 kg; Height 5 tw5 ft. 11 in. (180.34 cm); Pain 05/21; 05/24 00:26 BP 103 / 79; Pulse 98; Resp 14; Temp 98.0(O); Pulse Ox 100% on R/A; kd3 02:56 BP 102 / 70; Pulse 91; Resp 16 S; Pulse Ox 100% on R/A; lg3 05/23 20:28 Body Mass Index 22.32 (72.57 kg, 180.34 cm) tw5 [place] Coma Score: 05/23 23:18 Eye Response: spontaneous(4). Verbal Response: oriented(5). Motor Response: obeys david commands(6). Total: 15. ED Course: 19:34 Patient arrived in ED. kd3 20:30 Triage completed. tw5 20:30 Arm band placed on. tw5 22:44 Kanika Mercer, RN is Primary Nurse. kd3 22:45 Patient has correct armband on for positive identification. kd3 22:45 No provider procedures requiring assistance completed. kd3 22:52 Codey Matta MD is Attending Physician. [facility] 05/24 00:08 Strep Sent. kd3 00:08 Flu Sent. kd3 00:08 Blood Culture Adult (2) Sent. kd3 00:08 SARS-COV-2 RT PCR (Document "Date of Onset" if Symptomatic) Sent. kd3 00:08 PT-INR Sent. kd3 00:08 Comprehensive Metabolic Panel Sent. kd3 00:08 CBC with Diff Sent. kd3 00:25 Lactate Sent. kd3 02:56 IV discontinued, intact, bleeding controlled, No redness/swelling at site. Pressure lg3 dressing applied. 12:37 CT Head Brain wo Cont In Process Unspecified. EDMS 12:37 Chest Single View XRAY In Process Unspecified. EDMS Administered Medications: 00:26 Drug: NS 0.9% 1000 ml Route: IV; Rate: 1 bolus; Site: right antecubital; kd3 00:26 Drug: Ketorolac 30 mg Route: IVP; Site: right antecubital; kd3 00:26 Drug: Benadryl (diphenhydrAMINE) 50 mg Route: IVP; Site: right antecubital; kd3 00:26 Drug: Reglan (metoCLOPramide) 10 mg Route: IVP; Site: right antecubital; kd3 Medication: 05/23 22:45 VIS not applicable for this client. kd3 Outcome: 05/24 02:37 Discharge ordered by . [facility] 02:56 Discharged to home ambulatory. lg3 02:56 Condition: stable 02:56 Discharge instructions given to patient, Instructed on discharge instructions, follow up and referral plans. medication usage, Demonstrated understanding of instructions, follow-up care, medications, Prescriptions given X 1. 02:57 Patient left the ED. lg3 Signatures: Dispatcher [employer] EDMS Codey Matta MD MD cha Gibson, Lacie, RN RN [email or web address] Ericka Reeves tw5 Kanika Mercer RN RN kd3
[2022-05-24 03:03] VITALS: TEMP 98; O2SAT 100
[2022-05-24 03:04] VITALS: BP 102/70
--- NOTE | 2022-05-24 14:57 | RAD REPORT ---
EXAM DESCRIPTION: CT - Head Brain Wo Cont - 05/24/2022 12:15 am CLINICAL HISTORY: 51 years, Male, Head ache COMPARISON: None FINDINGS: Multiple transaxial tomograms of the brain were obtained from the base of the skull to the vertex without contrast. 2-D multiplanar reformats and the coronal and sagittal plane were performed and reviewed. This exam was performed according to our departmental dose-optimization protocol, which includes auto mated exposure control, adjustment of the mA and/or kV according to patient size and/or use of iterat milady reconstruction technique. Brain parenchyma as well as the olmos and white matter differentiation demonstrate to be unremarkable. There is no midline shift and/or mass effect. There is no evidence for acute hemorrhage. No focal ar eas of hypodensities. Lateral ventricles and cisterns displace normal appearance. No intra or ext ra axial fluid collections were seen. The calvarium is intact with no evidence for fracture. The visu alized portions of the paranasal sinuses and orbits demonstrate to be clear. IMPRESSION: No acute intracranial hemorrhage identified. Unremarkable CT scan of the head without contrast. Electronically signed by: Ubaldo Valentin MD 05/24/2022 1:55 AM CDT Due to temporary technical issues with the PACS/Fluency reporting system, reports are being signed by the in house radiologists without review as a courtesy to insure prompt reporting. The interpreting radiologist is fully responsible for the content of the report.
--- NOTE | 2022-05-24 14:59 | RAD REPORT ---
EXAM DESCRIPTION: RAD - Chest Single View - 05/24/2022 12:09 am CLINICAL HISTORY: 51 years Male, Cough TECHNIQUE: 1 view (Single frontal view of the chest) COMPARISON: None. FINDINGS: LINES AND TUBES: None. CARDIOVASCULAR STRUCTURES: Normal heart size. Mild diffuse increased interstitial opacities either re presenting chronic change versus bronchitis. Edema is felt to be less likely. LUNGS: No confluent areas of acute consolidation. PLEURA: No layering pleural effusions. No pneumothorax. BONES: No acute osseous abnormality of the thorax. IMPRESSION: 1. Mild diffuse increased interstitial opacities either representing chronic change ve rsus bronchitis. Edema is felt to be less likely. Electronically signed by: Parag Rizo MD 05/24/2022 1:03 AM CDT Due to temporary technical issues with the PACS/Fluency reporting system, reports are being signed by the in house radiologists without review as a courtesy to insure prompt reporting. The interpreting radiologist is fully responsible for the content of the report.
== END 2022-05-24 02:56 | disposition home or self-care (01) ==
LOC: ER 19:29
DX: R51.9 Headache, unspecified (principal); R50.9 Fever, unspecified; B19.20 Unspecified viral hepatitis C without hepatic coma; K74.60 Unspecified cirrhosis of liver; D69.59 Other secondary thrombocytopenia; B20 Human immunodeficiency virus [HIV] disease; Z79.899 Other long term (current) drug therapy; Z20.822 Contact with and (suspected) exposure to COVID-19; F17.210 Nicotine dependence, cigarettes, uncomplicated
CPT/HCPCS: 87040 ×2; 87070; 85025; 36415; 85610; 87081; 83605; 80053; 87804 ×2; 70450; 71045; 96375; 96374; 99284; U0003; J2765; J1200; J7030

== ENCOUNTER 2023-02-18 22:05 | Emergency (ER) | payer OTHER ==
--- OUTSIDE RECORDS SUMMARY | 2023-02-18 22:23 | XMS REPORT | Continuity of Care Document ---
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 dose, On 02/02/23 at 1830, Routine
Indicatio n: Non-periop erative Patient
Approved by: Per Policy (NPO Status) metroNIDAZO 2022- No 500mg 500 mg, U jhonny LE (FLAGYL) 02-02 Oral, Q8H, i ty of tablet 500 19:00: 16:55 42 doses, [place] mg 00 :49 First dose Medical (after Branch last modificati on) on 02/02/23 at 1400, Last dose on 02/16/23 at 0600, Routine
Reason for Anti-Infec tive: Empiric Therapy for Suspected Infection< br>Empiric Therapy Site: Abdominal< br>Duratio n of therapy: 5 days morpHINE (2 2022- No 2mg 2 mg, Slow Univers mg/mL) 02-02 IV Push, ity of injection 2 16:30: 16:38 ONCE, 1 [place] mg 00 :00 dose, On Medical Sat Branch 02/02/23 at 1130, Routine ondansetron Yes 4mg 4 mg, Slow Univers (ZOFRAN 02-02 IV Push, ity of (PF)) 15:10: Q6HPRN, [place] injection 4 30 Starting Medi ariane mg on Sat Branch 02/02/23 at 1010, Until Discontinu ed, Routine, Nausea and Vomiting (N/V) polyethylen 2022- No 17g 17 g, Univ ers e glycol 02-02 Oral, ity of 3350 powder 14:00: 17:08 DAILY, [place] 17 g 00 :32 First dose Medical on Sat Branch 02/02/23 at 0900, Until Discontinu ed, Routine sennosides- 2022- No 1{tbl} 1 tablet, Univers docusate 02-02 Oral, ity of sodium 14:00: 17:08 DAILY, [place] (SENOKOT-S) 00 :32 First dose Me dical 8.6-50 mg on [facility] Branch per tablet 02/02/23 at 1 tablet 0900, Until Discontinu ed, Routine sulfamethox 2022- No 1{tbl} 1 tablet, [facility] azole-trime 02-02 06-25 Oral, ity of thoprim 14:00: 16:44 DAILY, [place] (BACTRIM 00 :33 First dose Medic al DS) 800-160 on Sat Branch mg per 02/02/23 at tablet 1 0900, tablet Until Discontinu ed, INDRA
Re ason for Anti-Infec tive: Empiric Non-Surgic al Prophylaxi s
Durat ion of therapy: 5 days nystatin Yes 5mL 500,000 Univer s (NILSTAT) 24 Units (5 ity of 100,000 13:00: mL), Oral, [place] unit/mL 00 QID, First Medica l suspension dose on Branch 500,000 Sat Units 02/02/23 at 0800, Until Discontinu ed, INDRA valACYclovi 2022- Yes 1000mg 1 g (1,000 Univers r (VALTREX) 02-02 07-04 mg), Oral, i ty of tablet 1 g 13:00: 12:59 BID, 20 [place] 00 :00 doses, Medical First dose Branch on 02/02/23 at 0800, Last dose on 02/11/23 at 2000, INDRA heparin 2022- No 5000U 5,000 Univers (porcine) 02-02 06-28 Units, ity of injection 13:00: 04:07 Subcutaneo [place] 5,000 Units 00 :36 us, Q12H, Med ical First dose Branch on 02/02/23 at 0800, Until Discontinu ed, Routine itraconazol 2022- No 200mg 200 mg, U nivers e 02-02 06-27 Oral, BID ity of (SPORANOX) 13:00: 17:08 MEALS, 40 [place] capsule 200 00 :32 doses, Medica l mg First dose Branch on 02/02/23 at 0800, Last dose on [place] 02/21/23 at 1700, INDRA
Re ason for Anti-Infec tive: Documented Infection< br>Documen robert Infection Site: Respirator y
Durat ion of Therapy: 14 days KCL 2022- No 40meq 40 mEq, Univers (KLOR-CON 02-02 Oral, ity of M20) tablet 13:00: 16:46 ONCE, 1 [place] 40 mEq 00 :00 dose, On Medical Sat Branch 02/02/23 at 0800, Routine cefTRIAXone 2022- No 2000mg 2,000 mg, Univers (ROCEPHIN) 02-02 IV ity of 2,000 mg in 12:00: 16:55 Piggyback, [place] NaCl 0.9% 00 :49 Q24H ABX, Medic al (NS) 100 mL 5 doses, Bran ch MINI-BAG First dose on 02/02/23 at 0700, Last dose on Sat02/06/23 at 0700, Administer over 30 Minutes, 100 mL
Reas on for Anti-Infec tive: Empiric Therapy for Suspected Infection< br>Empiric Therapy Site: Abdominal< br>Duratio n of therapy: 5 days lidocaine 2022- No 30mL 30 mL, Unive rs 2% 02-02 Subcutaneo ity of (XYLOCAINE) 10:30: 10:30 us, ONCE, [place] 20 mg/mL (2 00 :00 1 dose, On Me dical %) Sat Branch injection 02/02/23 at 30 mL 0530, Routine benzonatate Yes 100mg 100 mg, Un todd (TESSALON 02-02 Oral, Q8H, ity of PERLES) 09:45: First dose [place] capsule 100 00 (after Medica l mg last Branch modificati on) on 02/02/23 at 0445, Until Discontinu ed, Routine acetaminoph No 650mg 650 mg, U nivers en 02-02 Oral, ity of (TYLENOL) 09:16: 23:32 Q6HPRN, [place] tablet 650 27 :54 Starting Medic al mg on Sat Branch 02/02/23 at 0416, Until 02/04/23 at 1832, Routine, Pain (scale 1-3) albuterol Yes 2{puff} 2 Puff, Un todd (VENTOLIN) 02-02 Inhalation ity of inhaler 2 09:05: , Q4HPRN, [place] Puff 17 Starting Medical on Sat Branch 02/02/23 at 0405, Until Discontinu ed, Routine, Wheezing, Shortness of Breath NaCl 0.9% 2022- No 1000mL at 999 Uni vers (NS) bolus 02-02 mL/hr, ity of infusion 06:45: 06:13 1,000 mL, [place] 1,000 mL 00 :00 IV Medical Infusion, Branch ONCE, 1 dose, On 02/02/23 at 0145, STAT ceFEPIme 2022- No 1g 1 g, IV Unive rs (MAXIPIME) 02-02 Piggyback, it y of 1 g in NaCl 06:00: 06:05 ONCE, 1 [place] 0.9% (NS) 00 :00 dose, On Medica l 100 mL Sat Branch MINI-BAG 02/02/23 at 0100, Administer over 30 Minutes, 100 mL
Reas on for Anti-Infec tive: Documented Infection< br>Documen robert Infection Site: Blood
D uration of Therapy: Other (see Comments) vancomycin 2022- No 15mg/kg 1,000 mg Univers (VANCOCIN) 02-02 (rounded ity of 1,000 mg in 06:00: 09:00 from 1,089 [place] NaCl 0.9% 00 :00 mg = 15 Medical (NS) 250 mL mg/kg Branch VIAL-MATE ?72.6 kg), IV IV piggyback Piggyback, ONCE, 1 dose, On 02/02/23 at 0100, Administer over 60 Minutes, 250 mL
Reas on for Anti-Infec tive: Documented Infection< br>Documen robert Infection Site: Blood
D uration of Therapy: Other (see Comments) iopamidol 2022- No [id number] 100mL 100 mL, Univers (ISOVUE 02-02 Intravenou ity o f 370-500 mL) 04:45: 04:45 s, ONCE, 1 [place] injection 00 :00 dose, On Medica l 100 mL Fri Branch 02/01/23 at 2345, Routine emtricitabi 2022- No Descovy Un todd ne-tenofovi 02-02 200 mg-25 it y of r alafen 04:04: 00:00 mg tablet [place] (DESCOVY) 47 :00 Take 1 Medical tablet tablet Branch every day by oral route. dolutegravi 2022- No 50mg Take 50 mg Univers r (TIVICAY) 02-02 by mouth ity of 50 mg 04:04: 00:00 daily. [place] tablet 44 :00 Medical Branch ondansetron 2022- No 4mg 4 mg, Slow Univers (ZOFRAN 02-02 IV Push, ity of (PF)) 03:45: 11:24 ONCE, 1 [place] injection 4 00 :00 dose, On Medi ariane mg Fri Branch 02/01/23 at 2245, INDRA morpHINE (4 2022- No 4mg 4 mg, Slow Univers mg/mL) 02-02 IV Push, ity of injection 4 03:45: 15:02 ONCE, 1 [place] mg 00 :00 dose, On Medical Fri Branch 02/01/23 at 2245, STAT ondansetron 2022- No 4mg 4 mg, Slow Univers (ZOFRAN 02-02 IV Push, ity of (PF)) 03:30: 02:27 ONCE, 1 [place] injection 4 00 :00 dose, On Medi ariane mg Fri Branch 02/01/23 at 2230, INDRA acetaminoph 2022- No 1000mg 1,000 mg, Univers en 02-02 Oral, ity of (TYLENOL) 01:45: 01:45 ONCE, 1 [place] tablet 00 :00 dose, On Medical 1,000 mg Fri Branch 02/01/23 at 2045, INDRA itraconazol 2022- No Take by Un todd e 100 mg 01-11 mouth. ity of capsule 00:00: 00:00 [place] 00 :00 Medical Branch multivitami 0 Yes 1{tbl} Take 1 Un todd n with 01-10 tablet by ity of folic acid 00:00: mouth [place] 400 mcg Tab 00 every Medical morning. Branch multivitami 2023-0 Yes 1{tbl} Take 1 Un todd n with 6-01 tablet by ity of folic acid 00:00: mouth [place] 400 mcg Tab 00 every Medical morning. Branch mirtazapine 2022- No 7.5mg Take 1 Un todd 7.5 mg 01-09 tablet by ity of tablet 00:00: 00:00 mouth. [place] 00 :00 Medical Branch bictegrav-e 2021-08- No 1{tbl} Take 1 U nivers mtricit-ten 2-02-06 tablet by it y of ofov ala 00:00: 00:00 mouth [place] 50-200-25 00 :00 every Medical mg tablet morning. Branch [facility] 2021-08 Yes [id number] 1250mg Take 5 Univers n 250 mg 1-21 tablets by ity o f tablet 00:00: mouth [place] 00 weekly. [facility] 07/02 [facility] 2021-08 Yes [id number] 1250mg Take 5 Univers n 250 mg 1-21 tablets by ity o f tablet 00:00: mouth [place] 00 weekly. [facility]-08 Yes [id number] 1250mg Take 5 Univers n 250 mg 1-21 tablets by ity o f tablet 00:00: mouth [place] 00 weekly. [facility] 07[facility] 2021-08- No [id number] 1250mg Take 5 Univers n 250 mg 1-21 06-24 tablets by ity of tablet 00:00: 00:00 mouth [place] 00 :00 weekly. [facility] 07/02 NaCl 0.9% 2021-08 Yes 10mL 10 mL, Univer s (NS) 1-14 Slow IV ity of injection 15:40: Push, PRN, [place] 10 mL 22 Starting Medical on Sat Branch 06/25/22 at 0940, Until Discontinu ed, Routine, line maintenanc e SULFAMETHOX 2021-08 Yes Take by Uni vers AZOLE/TRIME 1-14 mouth. ity of THOPRIM 14:51: [place] (BACTRIM 11 Medical ORAL) Branch dolutegravi 2021-08 Yes 50mg Take 50 mg Univers r (TIVICAY) 1-14 by mouth ity of 50 mg 14:51: daily. [place] tablet 11 Medical [facility] 2021-08 Yes Descovy Uni vers ne-tenofovi 1-14 200 mg-25 ity of r alafen 14:51: mg tablet [place] (DESCOVY) 11 Take 1 Medical tablet tablet Branch every day by oral route. SULFAMETHOX 2021-08 Yes Take by Uni vers AZOLE/TRIME 1-14 mouth. ity of THOPRIM 14:51: [place] (BACTRIM 11 Medical ORAL) [facility] 2021-08 Yes 50mg Take 50 mg Univers r (TIVICAY) 1-14 by mouth ity of 50 mg 14:51: daily. [place] tablet 11 Medical [facility] 2021-08 Yes [place]cov[place] Uni vers ne-tenofovi 1-14 200 mg-25 ity of r alafen 14:51: mg tablet [place] (DESCOVY) 11 Take 1 Medical tablet tablet Branch every day by oral route. SULFAMETHOX 2021-08 Yes Take by Uni vers AZOLE/TRIME 1-14 mouth. ity of THOPRIM 14:51: [place] (BACTRIM 11 Medical ORAL) [facility] 2021-08 Yes 50mg Take 50 mg Univers r (TIVICAY) 1-14 by mouth ity of 50 mg 14:51: daily. [place] tablet [address] [place] [address] 2021-08 Yes [place] Uni vers ne-tenofovi 1-14 200 mg-25 ity of r alafen 14:51: mg tablet [place] (DESCOVY) 11 Take 1 Medical tablet tablet Branch every day by oral route. AZITHROMYCI 2021-08- No Take by Un todd N ORAL 1-14 11-14 mouth. ity of 12:06: 00:00 [place] 54 :00 Medical Branch ethambutol 2021-08- No Take by Uni vers 400 mg 1-14 11-14 mouth ity of tablet 12:06: 00:00 daily. [place] 54 :00 Indication Medical s: Take Branch 2.5 tabs PO daily. rifabutin 2021-08- No 150mg Take 150 Un todd 150 mg -14 11-14 mg by ity of capsule 12:06: 00:00 mouth [place] 54 :00 daily. Medical Branch CLARITHROMY 2021-08- No Take by Un todd VEENA ORAL -14 mouth. ity of 12:06: 00:00 [place] 54 :00 Medical Branch SOMATROPIN 2021-08- No inject Univ ers (SEROSTIM 08-2514 under the ity of SC) 12:06: 00:00 skin. [place] 54 :00 Medical Branch codeine-gua 2021-08 Yes 5mL 5 mL, Unive rs ifenesin 14 Oral, ity of (ROBITUSSIN 01:43: Q4HPRN, [place] AC) 10-100 56 Starting Medic al mg/5 mL on Sun Branch oral 06/24/22 solution 5 at 1943, mL Until Discontinu ed, Routine, Cough albuterol 2021-08 Yes [id number] 2{puff} Inhale 2 Univers 90 1-14 Puffs ity of mcg/actuati 00:00: every 4 [place] on inhaler 00 (four) Medical hours as Branch needed for Wheezing or Shortness of Breath. magnesium 2021-08 Yes [id number] 500mg Take 500 Univers oxide 500 1-14 mg by ity of mg Tab 00:00: mouth [place] 00 daily. Medical Branch albuterol 2021-08 Yes [id number] 2{puff} Inhale 2 Univers 90 1-14 Puffs ity of mcg/actuati 00:00: every 4 [place] on inhaler 00 (four) Medical hours as Branch needed for Wheezing or Shortness of Breath. magnesium 2021-08 Yes [id number] 500mg Take 500 Univers oxide 500 1-14 mg by ity of mg Tab 00:00: mouth [place] 00 daily. Medical Branch albuterol 2021-08 Yes [id number] 2{puff} Inhale 2 Univers 90 1-14 Puffs ity of mcg/actuati 00:00: every 4 [place] on inhaler 00 (four) Medical hours as Branch needed for Wheezing or Shortness of Breath. albuterol 2021-08 Yes [id number] 2{puff} Inhale 2 Univers 90 1-14 Puffs ity of mcg/actuati 00:00: every 4 [place] on inhaler 00 (four) Medical hours as Branch needed for Wheezing or Shortness of Breath. albuterol 2021-08 Yes [id number] 2{puff} Inhale 2 Univers 90 1-14 Puffs ity of mcg/actuati 00:00: every 4 [place] on inhaler 00 (four) Medical hours as Branch needed for Wheezing or Shortness of Breath. magnesium 2021-08 Yes [id number] 500mg Take 500 Univers oxide 500 1-14 mg by ity of mg Tab 00:00: mouth [place] 00 daily. Medical Branch magnesium 2021-08- No [id number] 500mg Take 500 Univers oxide 500 1-14 06-24 mg by ity of mg Tab 00:00: 00:00 mouth [place] 00 :00 daily. Medical Branch codeine-gua 2021-08- No 5mL Take 5-10 Univers ifenesin 1-14 11-22 mL by ity of 10-100 mg/5 00:00: 05:59 mouth [place] mL oral 00 :00 every 6 Medical solution (six) Branch hours as needed for Cough for up to 7 days. Indication s: cough doxycycline 2021-08- No [id number] 100mg Take 1 Univers hyclate 100 1-14 11-22 capsule by i ty of mg capsule 00:00: 05:59 mouth in [place] 00 :00 the Medical morning Branch and 1 capsule in the evening. Do all this for 7 days. codeine-gua 2021-08- No 5mL Take 5-10 Univers ifenesin 1-14 11-22 mL by ity of 10-100 mg/5 00:00: 05:59 mouth [place] mL oral 00 :00 every 6 Medical solution (six) Branch hours as needed for Cough for up to 7 days. Indication s: cough doxycycline 2021-08- No [id number] 100mg Take 1 Univers hyclate 100 1-14 11-22 capsule by i ty of mg capsule 00:00: 05:59 mouth in [place] 00 :00 the Medical morning Branch and 1 capsule in the evening. Do all this for 7 days. pantoprazol 2021-08 Yes 40mg 40 mg, Univ ers e 1-13 Oral, ity of (PROTONIX) 11:00: DAILY, [place] EC tablet 00 First dose Medi ariane 40 mg on Sun Branch 06/24/22 at 0500, Until Discontinu ed, Routine alum-mag 2021-08 Yes 30mL 30 mL, Univers hydroxide-s 1-13 Oral, ity of imeth 10:59: Q6HPRN, [place] (MAALOX 28 Starting Medical PLUS / on Sun Branch MAG-AL 06/24/22 PLUS) at 0459, 200-200-20 Until mg/5 mL Discontinu suspension ed, 30 mL Routine, Indigestio n ondansetron 2021-08 Yes 4mg 4 mg, Slow Univers (ZOFRAN -12 IV Push, ity of (PF)) 17:33: Q6HPRN, [place] injection 4 13 Starting Medi ariane mg on [facility] Branch 06/23/22 at 1133, Until Discontinu ed, Routine, Nausea and Vomiting (N/V) levalbutero 2021-08 Yes .63mg 0.63 mg, U nivers l (XOPENEX) 1-12 Inhalation it y of nebulizer 17:30: , QID, [place] solution 00 First dose Medic al 0.63 mg on [facility] 06/23/22 at 1130, Until Discontinu ed, Routine sulfamethox 2021-08 Yes 1{tbl} 1 tablet, [facility] azole-trime -12 Oral, ity of thoprim 15:00: DAILY, [place] (BACTRIM 00 First dose Medic al DS) 800-160 on [facility] mg per 06/23/22 tablet 1 at 0900, tablet Until Discontinu ed, INDRA
Re ason for Anti-Infec tive: Empiric Non-Surgic al Prophylaxi s
Durat ion of therapy: 72 hours
S pecific indication : HIV azithromyci 2021-08 Yes 1200mg 1,250 mg Univers n 1-12 (rounded ity of (ZITHROMAX) 15:00: from 1,200 [place] tablet 00 mg), Oral, Medical 1,250 mg QWEEKLY, Branch First dose on [facility] 06/23/22 at 0900, Until Discontinu ed, INDRA
Re ason for Anti-Infec tive: Empiric Non-Surgic al Prophylaxi s
Durat ion of therapy: 72 hours
S pecific indication : HIV emtricitabi 2021-08 Yes 1{tbl} 1 tablet, Univers ne-tenofovi 1-12 Oral, Q24H it y of r alafen 00:00: ABX, First [place] (DESCOVY) 00 dose on Medical tablet 1 Sat Branch tablet 06/22/22 at 1800, Until Discontinu ed, Routine ipratropium 2021-08 No 3mL 3 mL, [facility] ers -albuteroL 08-22 Inhalation it y of (DUONEB) 17:45: 17:24 , QID, [place] 0.5 mg-3 00 :56 First dose Medic al mg(2.5 mg (after Branch base)/3 mL last nebulizer reorder) solution 3 on Sat mL 06/22/22 at 1145, Until Discontinu ed, Routine dolutegravi 2021-08 Yes 50mg 50 mg, Univ ers r (TIVICAY) 08-22 Oral, ity of tablet 50 15:00: DAILY, [place] mg 00 First dose Medical on Sat Branch 06/22/22 at 0900, Until Discontinu ed, INDRA ethambutoL 2021-08- No 1000mg 1,000 mg, Univers (MYAMBUTOL) 08-22 Oral, ity of tablet 15:00: 15:41 DAILY, [place] 1,000 mg 00 :34 First dose Medic al on Sat Branch 06/22/22 at 0900, Until Discontinu ed, INDRA
Re ason for Anti-Infec tive: Documented Infection< br>Documen robert Infection Site: Blood
D uration of Therapy: 7 days DAPTOmycin 2021-08 No 8mg/kg 550 mg Un todd (CUBICIN) 08-22 (rounded ity o f 550 mg in 13:30: 13:29 from 540 [place] NaCl 0.9% 00 :00 mg = 8 Medical (NS) mg/kg Branch piggyback ?67.5 kg), IV Piggyback, Q24H ABX, 7 doses, First dose on Sat06/22/22 at 0730, Last dose on [place] 06/28/22 at 0730, Administer over 30 Minutes, 100 mL
Reas on for Anti-Infec tive: Empiric Therapy for Suspected Infection< br>Empiric Therapy Site: Blood<b r>Duration of therapy: 5 days
Re stricted use approved by: After Hours (for ADC, CLC, LCC ONLY) NaCl 0.9% 2021-08 No 1000mL at 100 Uni vers (NS) IV 08-22 11-12 mL/hr, IV ity of infusion 13:15: 00:57 Infusion, [place] 1,000 mL 00 :42 CONTINUOUS Medic al , Starting Branch on Sat06/22/22 at 0715, Until Sat06/22/22 at 1857, Routine ipratropium 2021-08 No 3mL 3 mL, Univ ers -albuteroL 08-21 Inhalation it y of (DUONEB) 23:00: 22:10 , ONCE, 1 [place] 0.5 mg-3 00 :00 dose, On Medical mg(2.5 mg [facility] Branch base)/3 mL 06/21/22 nebulizer at 1700, solution 3 Routine mL LORazepam 2021-08 No 2mg 2 mg, Slow U nivers (ATIVAN) 08-21 IV Push, ity of injection 2 22:00: 22:42 ONCE, 1 [place] mg 00 :00 dose, On Medical [place] Branch 06/21/22 at 1600, STAT dexamethaso 2021-08 No 10mg 10 mg, Uni vers ne sod phos 08-21 Slow IV ity of PF 22:00: 21:51 Push, [place] injection 00 :00 ONCE, 1 Medical 10 mg dose, On Branch [facility] 06/21/22 at 1600, 1 mL vancomycin 2021-08 No 1000mg 1,000 mg, Univers (VANCOCIN) 08-21 IV ity of 1,000 mg in 20:30: 22:17 Piggyback, [place] NaCl 0.9% 00 :00 ONCE, 1 Medical (NS) 250 mL dose, On Bran ch VIAL-MATE [place] IV 06/21/22 piggyback at 1430, Administer over 60 Minutes, 250 mL
Reas on for Anti-Infec tive: Empiric Therapy for Suspected Infection< br>Empiric Therapy Site: Respirator y
Durat ion of therapy: 72 hours piperacilli 2021-08- No 3.375g 3.375 g, Univers n-tazobacta 1-10 1110 IV ity of m (ZOSYN) 20:30: 20:25 Piggyback, [place] 3.375 g in 00 :00 ONCE, 1 Medica l NaCl 0.9% dose, On Branch (NS) 100 mL [place] MINI-BAG 06/21/22 at 1430, Administer over 30 Minutes, 100 mL
Reas on for Anti-Infec tive: Empiric Therapy for Suspected Infection< br>Empiric Therapy Site: Respirator y
Durat ion of therapy: 72 hours NaCl 0.9% 2021-08- No 30mL/kg at 999 Un todd (NS) bolus 110 11-10 mL/hr, ity of infusion 20:30: 21:48 2,313 mL [place] 2,313 mL 00 :00 (30 mL/kg Medica l ?77.1 kg), Branch IV Piggyback, ONCE, 1 dose, On [place] 06/21/22 at 1430, STAT acetaminoph 2021-08- No 1000mg 1,000 mg, Univers en 08-2110 Oral, ity of (TYLENOL) 20:00: 19:49 ONCE, 1 [place] tablet 00 :00 dose, On Medical 1,000 mg [facility] Branch 06/21/22 at 1400, INDRA codeine-gua 2020-08- No 10mL 10 mL, Uni vers ifenesin 2-15 12-15 Oral, ity of (ROBITUSSIN 04:15: 16:14 ONCE, 1 [place] AC) 10-100 00 :00 dose, On Medic al mg/5 mL [facility] oral 07/25/21 solution 10 at 2215, mL INDRA levoFLOXaci 2020-08- No 750mg 750 mg, U nivers n 2-15 12-15 Oral, ONCE ity of (LEVAQUIN) 04:15: 16:14 NOW, 1 [place] tablet 750 00 :00 dose, On Medic al mg [facility] Branch 07/25/21 at 2215, INDRA
Re ason [...] Therapy: Other (see Comments) levoFLOXaci 2020-08 Yes [id number] 750mg Take 1 Univers n 2-14 tablet by ity of (LEVAQUIN) 00:00: mouth [place] 750 mg 00 every 24 Medical tablet (twenty-fo Branch ur) hours. benzonatate 2020-08 Yes [id number] 200mg Take 1 Univers 200 mg 2-14 capsule by ity of capsule 00:00: mouth 3 [place] 00 (three) Medical times Branch daily as needed for Cough. levoFLOXaci 2020-08- No [id number] 750mg Take 1 Univers n 2-14 11-14 tablet by ity of (LEVAQUIN) 00:00: 00:00 mouth [place] 750 mg 00 :00 every 24 Medical tablet (twenty-fo Branch ur) hours. benzonatate 2020-08- No [id number] 200mg Take 1 Univers 200 mg 2-14 11-14 capsule by ity of capsule 00:00: 00:00 mouth 3 [place] 00 :00 (three) Medical times Branch daily as needed for Cough. (SULFAMETHO Yes Ubaldo 1 Take 1 [facility] XAZOLE-TRIM 04-13 Andre VARGAS tablet by Aleksandr ETHOPRIM) 00:00: mouth once ty 800-160 MG 00 a day Health TABS Service s BIKTARVY Yes Ubaldo 1 Take 1 [facility] (BICTEGRAVI 04-13 Andre VARGAS tablet by Aleksandr R-EMTRICITA 00:00: mouth once ty B-TENOFOV) 00 a day Health 50-200-25 antiviral Servi ce MG TABS s BIKTARVY 2020- No Ubaldo 1{Table 1xD Take 1 Leg acy (BICTEGRAVI 5-04-13 Nemecek t} tablet by Communi R-EMTRICITA 00:00: 00:00 mouth once ty B-TENOFOV) 00 :00 a day Health 50-200-25 Service MG TABS s BACTRIM DS 2020- No Ubaldo 1{Table 2xD 1 tablet [facility] (SULFAMETHO 08-22 Nemecek t} by mouth Communi XAZOLE-TRIM 00:00: 00:00 twice a ty ETHOPRIM) 00 :00 day Health 800-160 MG Service TABS s (QUETIAPINE 2019-08 Yes Dale 1{Table 1xD Take 1 [facility] FUMARATE) 2-31 Leoz-Lary t} tablet by Communi 100 MG TABS 00:00: zo mouth ty 00 every Health night Service s (MODAFINIL) 2019-08 Yes [place] 1{Table 1xD Take 1 [facility] 100 MG TABS 2-16 Leoz-Lary t} tablet by Communi 00:00: zo mouth once ty 00 a day Health Service s (RIFABUTIN) 2019- No Cristiana 2{Capsu 1xD TAKE TWO [facility] 150 MG CAPS 03-18 Ashkan VARGAS le} CAPSULES Communi 00:00: 00:00 BY MOUTH ty 00 :00 ONCE DAILY Health Service s (AMOXICILLI 2019- No 1{Capsu 3xD 1 by mouth [facility] N) 500 MG 03-17 le} 3 times a Comm uni CAPS 00:00: 00:00 day ty 00 :00 Health Service s (ETHAMBUTOL Cristiana tk 2.5 L egacy HCL) 400 MG -13 08-22 Ashkan VARGAS tabs By Communi TABS 00:00: 00:00 Mouth once ty 00 :00 d Health Service s (AZITHROMYC 2019- Chanel 1 tabs by [facility] IN) 500 MG 15 06-13 Shrikanth mouth Co mmuni TABS 00:00: 00:00 single ty 00 :00 dose Health Service s MEPRON 2020- No Chanel 10mL 1xD Take 10ml Le gacy (ATOVAQUONE 3-16 08-22 Shrikant once daily Communi ) 750 00:00: 00:00 MD ty MG/5ML SUSP 00 :00 Health Service s (ESCITALOPR 2020- No 1{Table 1xD Take one start [facility] AM OXALATE) 3-16 04-10 t} tablet with half Communi 10 MG TABS 00:00: 00:00 daily a tablet t y 00 :00 daily for Health 2 weeks. Service s (AZITHROMYC 2018-08- No 1{Table 1xD TAKE ONE [facility] IN) 500 MG 0-08 -10 t} TABLET BY Com marnie TABS 00:00: 00:00 MOUTH ONCE ty 00 :00 DAILY [facility] (CALCITRIOL 2020- Cristiana Apply to [facility] ) 3 MCG/GM 04-15 Ashkan skin twice [facility] OINT 00:00: 00:00 a day ty 00 :00 [facility] (RIFABUTIN) 2019- No 2{Capsu 1xD TAKE TWO [facility] 150 MG CAPS 04-15 le} CAPSULES Com marnie 00:00: 00:00 BY MOUTH ty 00 :00 ONCE DAILY [facility] (ETHAMBUTOL 2019- No take TWO L [facility] HCL) 400 MG 04-15 AND Commun[facility] TABS 00:00: 00:00 ONE-HALF ty 00 :00 TABLETS BY Health MOUTH ONCE Service DAILY s MEDROL 2018- No use as [facility] (METHYLPRED 09-25 directed Com marnie NISOLONE) 4 00:00: 00:00 ty MG TBPK 00 :00 [facility] AUGMENTIN 2018- No 1{Table 2xD 1 by mouth [facility] 875-125 MG 09-19 t} twice a Commu ni ORAL TABLET 00:00: 00:00 day ty 00 :00 [facility] Service [facility] (DOXYCYCLIN 2018- No 1{Capsu 2xD 1 by mouth [facility] HYCLATE) 09-19 le} twice a Commu ni 100 MG CAPS 00:00: 00:00 day ty 00 :00 Health Service s TRUVADA 2017-08- Chanel 1{Table 1xD 1 by mouth [facility] (EMTRICITAB 08-13 Shrikanth t} daily C ommuni INE-TENOFOV 00:00: 00:00 MD broussard IR DF) 00 :00 Health 200-300 MG Service TABS s TIVICAY 2017-08- No Chanel 1{Table 1xD 1 By Mouth [facility] (DOLUTEGRAV 08-13 Shrikanth t} once a day Communi IR SODIUM) 00:00: 00:00 ty 50 MG TABS 00 :00 Health Service s EPZICOM 2017-08 2019- No 1{Table 1xD 1 By Mouth [facility] (ABACAVIR 08-13 t} Every Day Comm uni SULFATE-MARIE 00:00: 00:00 ty IVUDINE) 00 :00 Health 600-300 MG Service TABS s CALCITRENE 2017-08- No Apply BID L egacy (CALCIPOTRI 08-13 to Communi DEVAN) 0.005 00:00: 00:00 affected ty % OINT 00 :00 area. Health Service s BACTRIM DS 2020- No 1{Table 1xD Take one [facility] (SULFAMETHO 05-08 03-16 t} tablet by Co mmuni XAZOLE-TRIM 00:00: 00:00 mouth once ty ETHOPRIM) 00 :00 daily Health 800-160 MG Service TABS s SULFAMETHOX Yes Take by Uni vers AZOLE/TRIME 4-06 mouth. ity of THOPRIM 16:48: [place] (BACTRIM 23 Medical ORAL) Branch AZITHROMYCI Yes Take by Uni vers N ORAL 4-06 mouth. ity of 16:48: [place] [id number] Medical Branch dolutegravi Yes 50mg Take 50 mg Univers r (TIVICAY) 06 by mouth ity of 50 mg 16:48: daily. [facility] 23 Medical Branch ethambutol Yes Take by Univ ers 400 mg 4-06 mouth ity of tablet 16:48: daily. [place] [id number] Indication Medical s: Take Branch 2.5 tabs PO daily. rifabutin Yes 150mg Take 150 Uni vers 150 mg 4-06 mg by ity of capsule 16:48: mouth [place] [address] daily. Medical Branch CLARITHROMY Yes Take by Uni vers VEENA ORAL 4-06 mouth. ity of 16:48: [place] [address] Medical Branch SOMATROPIN Yes inject Unive rs (SEROSTIM 4-06 under the ity o f [place]) 16:48: skin. [address] ethambutol 2018-0 Yes 100mg QD Take 100 Me thodi (MYAMBUTOL) 1-[address] 100 MG 08:16: mouth Hospita tablet 21 daily. l ibuprofen 2018-0 Yes 800mg Q6H Take 800 Met hodi (ADVIL,MOTR 1-[address] IN) 800 MG 08:16: mouth Hospit a tablet 21 every 6 l (six) hours as needed for mild pain. azithromyci 2018-0 Yes 500mg QD Take 500 M ethodi n 1-[address] (ZITHROMAX) 08:16: mouth Hospi ta 500 MG 21 daily. l tablet rifabutin 2018-0 Yes 300mg QD Take 300 Met hodi (MYCOBUTIN) 1-[address] 150 mg 08:16: mouth Hospita capsule 21 daily. l sulfamethox 2018-0 Yes 1{tbl} Q.5D Take 1 Me thodi azole-trime 1-[address] thoprim 08:16: mouth 2 Hospita (BACTRIM 21 (two) l DS) 800-160 times a mg per day. tablet ethambutol 2018-0 Yes 100mg QD Take 100 Me thodi (MYAMBUTOL) 1-[address] 100 MG 08:16: mouth Hospita tablet 21 daily. l ibuprofen 2018-0 Yes 800mg Q6H Take 800 Met hodi (ADVIL,MOTR 1-[address] IN) 800 MG 08:16: mouth Hospit a tablet 21 every 6 l (six) hours as needed for mild pain. azithromyci 2018-0 Yes 500mg QD Take 500 M ethodi n 1-[address] (ZITHROMAX) 08:16: mouth Hospi ta 500 MG 21 daily. l tablet rifabutin 2018-0 Yes 300mg QD Take 300 Met hodi (MYCOBUTIN) 1-[address] 150 mg 08:16: mouth Hospita capsule 21 daily. l sulfamethox 2018-0 Yes 1{tbl} Q.5D Take 1 Me thodi azole-trime 1-[address] thoprim 08:16: mouth 2 Hospita (BACTRIM 21 (two) l DS) 800-160 times a mg per day. tablet ethambutol 2018-0 Yes 100mg QD Take 100 Me thodi (MYAMBUTOL) 1-[address] 100 MG 08:16: mouth Hospita tablet 21 daily. l ibuprofen 2018-0 Yes 800mg Q6H Take 800 Met hodi (ADVIL,MOTR 1-[address] IN) 800 MG 08:16: mouth Hospit a tablet 21 every 6 l (six) hours as needed for mild pain. rifabutin 2018-0 Yes 300mg QD Take 300 Met hodi (MYCOBUTIN) 1-[address] 150 mg 08:16: mouth Hospita capsule 21 daily. l sulfamethox 2018-0 Yes 1{tbl} Q.5D Take 1 Me thodi azole-trime 1-[address] thoprim 08:16: mouth 2 Hospita (BACTRIM 21 (two) l DS) 800-160 times a mg per day. tablet ethambutol 2018-0 Yes 100mg QD Take 100 Me thodi (MYAMBUTOL) 1-[address] 100 MG 08:16: mouth Hospita tablet 21 daily. l ibuprofen 2018-0 Yes 800mg Q6H Take 800 Met hodi (ADVIL,MOTR 1-[address] IN) 800 MG 08:16: mouth Hospit a tablet 21 every 6 l (six) hours as needed for mild pain. azithromyci 2018-0 Yes 500mg QD Take 500 M ethodi n 1-[address] (ZITHROMAX) 08:16: mouth Hospi ta 500 MG 21 daily. l tablet azithromyci 2018-0 Yes 500mg QD Take 500 M ethodi n 1-[address] (ZITHROMAX) 08:16: mouth Hospi ta 500 MG 21 daily. l tablet rifabutin 2018-0 Yes 300mg QD Take 300 Met hodi (MYCOBUTIN) 1-[address] 150 mg 08:16: mouth Hospita capsule 21 daily. l sulfamethox 2018-0 Yes 1{tbl} Q.5D Take 1 Me thodi azole-trime 1-[address] thoprim 08:16: mouth 2 Hospita (BACTRIM 21 (two) l DS) 800-160 times a mg per day. tablet Immunizations Ordered Immunization Filled Immunization Date Status Commen ts Source Name Name Priyanka COVID-19 2021-04-12 Completed [facility] Vaccine Dose 2 00:00:00 Health Moderna COVID-19 2021-03-31 Completed [facility] Vaccine Dose 1 00:00:00 Health influenza, 2020-08-22 Completed [facility] unspecified 00:00:00 Health formulation Pneumovax 23 IM/SQ 2019-04-23 Completed [facility] [id number] 09:23:00 Health pneumped1 2018-12-05 Completed [facility] 10:49:49 Health mcv4 2018-12-05 Completed [facility] 10:49:49 Health flu vax 2018-12-05 Completed [facility] 10:49:49 Health Vital Signs Vital Name Observation Time Observation Value Comments Source Systolic blood 2023-02-06 100 mm[Hg] [facility] of pressure 14:21:00 [facility] Diastolic blood 2023-02-06 64 mm[Hg] University o f pressure 14:21:00 [facility] Respiratory rate 2023-02-06 20 /min University 14:21:00 [facility] Heart rate 2023-02-06 95 /min University 09:00:00 [facility] Body temperature 2023-02-06 36.89 Paulina University of 09:00:00 [facility] Oxygen saturation 2023-02-06 92 /min [facility] in Arterial blood 09:00:[address] [facility] by Pulse oximetry [place]over Body height 2023-02-03 180.3 cm University of 04:00:00 [facility] Body weight 2023-02-03 72.576 kg University of 04:00:00 [facility] BMI 2023-02-03 22.32 kg/m2 University of 04:00:00 [facility] Systolic blood 2022-06-25 136 mm[Hg] University of pressure 18:00:00 [facility] Diastolic blood 2022-06-25 94 mm[Hg] University o f pressure 18:00:00 [facility] Heart rate 2022-06-25 102 /min University of 18:00:00 [facility] Respiratory rate 2022-06-25 19 /min University of 18:00:00 [facility] Body temperature 2022-06-25 36.72 Paulina University of 17:36:00 [facility] Oxygen saturation 2022-06-25 99 /min [place] of in Arterial blood 17:36:[address] [facility] by Pulse oximetry [place]over Body weight 2022-06-25 68.493 kg [facility] 09:27:00 [facility] BMI 2022-06-25 21.07 kg/m2 [facility] 09:27:00 [facility] Body height 2022-06-22 180.3 cm [facility] 11:52:00 [facility] Body height 2021-07-26 180.3 cm [facility] 01:19:00 [facility] Body weight 2021-07-26 77.111 kg [facility] 01:19:00 [facility] BMI 2021-07-26 23.71 kg/m2 [facility] :19:00 [facility] Systolic blood 2021-07-26 119 mm[Hg] [facility] pressure 01:00:00 [facility] Diastolic blood 2021-07-26 75 mm[Hg] [place] o f pressure 01:00:00 [facility] Heart rate 2021-07-26 106 /min [facility] 01:00:00 [facility] Body temperature 2021-07-26 37.56 Paulina [facility] 01:00:00 [facility] Respiratory rate 2021-07-26 16 /min [facility] 01:00:00 [facility] Oxygen saturation 2021-07-26 97 /min [facility] in Arterial blood 01:00:[address] [facility] by Pulse oximetry [place] Systolic blood 2022-06-13 114 mm[Hg] [facility] pressure 16:10:00 Diastolic blood 2022-06-13 73 mm[Hg] [facility] h pressure 16:10:00 Heart rate 2022-06-13 109 /min [facility] 16:10:00 Body temperature 2022-06-13 38 Paulina ирина portillo was Dimitrios Carrasco 16:10:00 notified Respiratory rate 2022-06-13 18 /min Dimitrios [facility] 16:10:00 Oxygen saturation 2022-06-13 98 /min Dimitrios [facility] in Arterial blood 16:10:00 by Pulse oximetry Body height 2022-06-01 180.3 cm [facility] 09:40:00 Body weight 2022-06-01 68.493 kg [facility] 09:40:00 BMI 2022-06-01 21.06 kg/m2 [facility] 09:40:00 blood pressure, 2021-04-13 80 mm[Hg] [facility] diastolic 11:17:04 Health blood pressure, 2021-04-13 129 mm[Hg] [facility] systolic 11:17:04 Health oxygen saturation, 2021-04-13 98 /min [facility] oximetry 11:17:04 Health pulse rate 2021-04-13 102 /min [facility] 11:17:04 Health temperature E&M 2021-04-13 98.1 [degF] [facility] 11:17:04 Health weight E&M 2021-04-13 170 [lb_av] [facility] 11:17:04 Health weight in 2021-04-13 77.27 kg [facility] kilograms E&M 11:17:04 Health temperature site 2021-04-13 oral [facility] unity 11:17:04 Health height in 2021-04-13 180.34 cm [facility] centimeters E&M 11:17:04 Health BMI (body mass 2021-04-13 n/a [facility] index) percentile 11:17:04 Health Body Mass Index 2021-04-13 23.80 kg/m2 [facility] (Ratio) 11:17:04 Health temperature site 2021-04-13 oral [facility] unity 11:17:04 Health blood pressure, 2020-08-22 86 mm[Hg] [facility] diastolic 15:34:51 Health blood pressure, 2020-08-22 130 mm[Hg] [facility] systolic 15:34:51 Health oxygen saturation, 2020-08-22 98 /min [facility] oximetry 15:34:51 Health pulse rate 2020-08-22 93 /min [facility] 15:34:51 Health temperature E&M 2020-08-22 97.8 [degF] [facility] 15:34:51 Health weight E&M 2020-08-22 161 [lb_av] [facility] 15:34:51 Health weight in 2020-08-22 73.18 kg [facility] kilograms E&M 15:34:51 Health height in 2020-08-22 180.34 cm [facility] centimeters E&M 15:34:51 Health BMI (body mass 2020-08-22 n/a [facility] index) percentile 15:34:51 Health Body Mass Index 2020-08-22 22.54 kg/m2 [facility] (Ratio) 15:34:51 Health blood pressure, 2019-10-26 89 mm[Hg] [facility] diastolic 10:40:47 Health blood pressure, 2019-10-26 124 mm[Hg] [facility] systolic 10:40:47 Health pulse rate 2019-10-26 111 /min [facility] 10:40:47 Health weight E&M 2019-10-26 153 [lb_av] [facility] 10:40:47 Health weight in 2019-10-26 69.55 kg [facility] kilograms E&M 10:40:47 Health height in 2019-10-26 180.34 cm [facility] centimeters E&M 10:40:47 Health Body Mass Index 2019-10-26 21.42 kg/m2 [facility] (Ratio) 10:40:47 Health BMI (body mass 2019-10-26 n/a [facility] index) percentile 10:40:47 Health blood pressure, 2019-10-26 95 mm[Hg] [facility] diastolic 08:49:33 Health blood pressure, 2019-10-26 142 mm[Hg] [facility] systolic 08:49:33 Health oxygen saturation, 2019-10-26 98 /min [facility] oximetry 08:49:33 Health pulse rate 2019-10-26 127 /min [facility] 08:49:33 Health temperature E&M 2019-10-26 98.2 [degF] [facility] 08:49:33 Health weight E&M 2019-10-26 153 [lb_av] [facility] 08:49:33 Health weight in 2019-10-26 69.55 kg [facility] kilograms E&M 08:49:33 Health height in 2019-10-26 180.34 cm [facility] centimeters E&M 08:49:33 Health temperature site 2019-10-26 oral [facility] unity 08:49:33 Health Body Mass Index 2019-10-26 21.42 kg/m2 [facility] (Ratio) 08:49:33 Health BMI (body mass 2019-10-26 n/a [facility] index) percentile 08:49:33 Health temperature site 2019-10-26 oral [facility] unity 08:49:33 Health oxygen saturation, 2019-04-23 98 /min [facility] oximetry 08:40:09 Health blood pressure, 2019-04-23 92 mm[Hg] [facility] diastolic 08:40:09 Health blood pressure, 2019-04-23 133 mm[Hg] [facility] systolic 08:40:09 Health respiratory rate 2019-04-23 14 /min [facility] unity E&M 08:40:09 Health pulse rate 2019-04-23 95 /min [facility] 08:40:09 Health temperature E&M 2019-04-23 98.1 [degF] [facility] 08:40:09 Health weight E&M 2019-04-23 154 [lb_av] [facility] 08:40:09 Health weight in 2019-04-23 70 kg [facility] kilograms E&M 08:40:09 Health height in 2019-04-23 180.34 cm [facility] centimeters E&M 08:40:09 Health temperature site 2019-04-23 oral [facility] unity 08:40:09 Health BMI (body mass 2019-04-23 n/a [facility] index) percentile 08:40:09 Health Body Mass Index 2019-04-23 21.56 kg/m2 [facility] (Ratio) 08:40:09 Health temperature site 2019-04-23 oral [facility] 08:40:09 Health oxygen saturation, 2018-12-05 97 /min [facility] oximetry 10:49:49 Health blood pressure, 2018-12-05 90 mm[Hg] [facility] diastolic 10:49:49 Health blood pressure, 2018-12-05 132 mm[Hg] [facility] systolic 10:49:49 Health respiratory rate 2018-12-05 14 /min [facility] unity E&M 10:49:49 Health pulse rate 2018-12-05 79 /min [facility] 10:49:49 Health temperature E&M 2018-12-05 98.1 [degF] [facility] 10:49:49 Health weight E&M 2018-12-05 173 [lb_av] [facility] 10:49:49 Health weight in 2018-12-05 78.64 kg [facility] kilograms E&M 10:49:49 Health height in 2018-12-05 180.34 cm [facility] centimeters E&M 10:49:49 Health temperature site 2018-12-05 oral [facility] unity 10:49:49 Health BMI (body mass 2018-12-05 n/a [facility] index) percentile 10:49:49 Health Body Mass Index 2018-12-05 24.22 kg/m2 [facility] (Ratio) 10:49:49 Health temperature site 2018-12-05 oral [facility] 10:49:49 Health oxygen saturation, 2018-09-19 95 /min [facility] oximetry 11:34:59 Health blood pressure, 2018-09-19 82 mm[Hg] [facility] diastolic 11:34:59 Health blood pressure, 2018-09-19 136 mm[Hg] [facility] systolic 11:34:59 Health respiratory rate 2018-09-19 12 /min [facility] unity E&M 11:34:59 Health pulse rate 2018-09-19 96 /min [facility] 11:34:59 Health temperature E&M 2018-09-19 98.0 [degF] [facility] 11:34:59 Health weight E&M 2018-09-19 173 [lb_av] [facility] 11:34:59 Health weight in 2018-09-19 78.64 kg [facility] kilograms E&M 11:34:59 Health height in 2018-09-19 180.34 cm [facility] centimeters E&M 11:34:59 Health temperature site 2018-09-19 oral [facility] 11:34:59 Health BMI (body mass 2018-09-19 n/a [facility] index) percentile 11:34:59 Health Body Mass Index 2018-09-19 24.22 kg/m2 [facility] (Ratio) 11:34:59 Health temperature site 2018-09-19 oral [facility] 11:34:59 Health oxygen saturation, 2018-07-25 98 /min [facility] oximetry 10:35:48 Health blood pressure, 2018-07-25 88 mm[Hg] [facility] diastolic 10:35:48 Health blood pressure, 2018-07-25 129 mm[Hg] [facility] systolic 10:35:48 Health respiratory rate 2018-07-25 12 /min [facility] unity E&M 10:35:48 Health pulse rate 2018-07-25 103 /min [facility] 10:35:48 Health temperature E&M 2018-07-25 98.4 [degF] [facility] 10:35:48 Health weight E&M 2018-07-25 179 [lb_av] [facility] 10:35:48 Health weight in 2018-07-25 81.36 kg [facility] kilograms E&M 10:35:48 Health height in 2018-07-25 180.34 cm [facility] centimeters E&M 10:35:48 Health temperature site 2018-07-25 oral [facility] 10:35:48 Health BMI (body mass 2018-07-25 n/a [facility] index) percentile 10:35:48 Health Body Mass Index 2018-07-25 25.06 kg/m2 [facility] (Ratio) 10:35:48 Health temperature site 2018-07-25 oral [facility] 10:35:48 Health oxygen saturation, 2018-06-13 97 /min [facility] oximetry 12:04:15 Health blood pressure, 2018-06-13 84 mm[Hg] [facility] diastolic 12:04:15 Health blood pressure, 2018-06-13 117 mm[Hg] [facility] systolic 12:04:15 Health respiratory rate 2018-06-13 12 /min [facility] unity E&M 12:04:15 Health pulse rate 2018-06-13 104 /min [facility] 12:04:15 Health temperature E&M 2018-06-13 97.9 [degF] [facility] 12:04:15 Health weight E&M 2018-06-13 173 [lb_av] [facility] 12:04:15 Health weight in 2018-06-13 78.64 kg [facility] kilograms E&M 12:04:15 Health height in 2018-06-13 180.34 cm [facility] centimeters E&M 12:04:15 Health temperature site 2018-06-13 oral [facility] 12:04:15 Health BMI (body mass 2018-06-13 n/a [facility] index) percentile 12:04:15 Health Body Mass Index 2018-06-13 24.22 kg/m2 [facility] (Ratio) 12:04:15 [facility] temperature site 2018-06-13 oral [facility] 12:04:15 Health respiratory rate 2018-05-16 16 /min [facility] unity E&M 13:32:43 Health blood pressure, 2018-05-16 82 mm[Hg] [facility] diastolic 13:32:43 Health blood pressure, 2018-05-16 124 mm[Hg] [facility] systolic 13:32:43 Health oxygen saturation, 2018-05-16 97 /min [facility] oximetry 13:32:43 Health pulse rate 2018-05-16 88 /min [facility] 13:32:43 Health temperature E&M 2018-05-16 98.3 [degF] [facility] 13:32:43 Health height in 2018-05-16 180.34 cm [facility] centimeters E&M 13:32:43 Health weight E&M 2018-05-16 178 [lb_av] [facility] 13:32:43 Health weight in 2018-05-16 80.91 kg [facility] kilograms E&M 13:32:43 Health temperature site 2018-05-16 oral [facility] 13:32:43 Health Body Mass Index 2018-05-16 24.92 kg/m2 [facility] (Ratio) 13:32:43 Health temperature site 2018-05-16 oral [facility] 13:32:43 Health Procedures Procedure Date / Time Performing Clinician Source Performed DNR 2023-02-18 05:01:00 Doctor Unassigned, [facility] [place] [facility] PREPARE PACKED RBC 2023-02-06 14:01:29 [facility] EXTRA TUBE LAV 2023-02-06 10:09:00 Asha Milligan [facility] MAGNESIUM 2023-02-06 10:08:00 [facility] BASIC METABOLIC PANEL (NA, 2023-02-06 10:08:[address] [facility] K, CL, CO2, GLUCOSE, BUN, Medica l Rover CREATININE, [place]) CBC WITH DIFF 2023-02-06 10:08:00 [facility] FIBRINOGEN 2023-02-06 10:08:00 [facility] PREPARE PLATELETS 2023-02-05 23:32:38 [facility] TRANSFUSE CRYOPRECIPITATE 2023-02-05 22:58:00 [facility]ford [facility] PREPARE CRYOPRECIPITATE 2023-02-05 22:42:38 [facility]ford [facility] FIBRINOGEN 2023-02-05 19:37:00 Mar Claros [facility] MAGNESIUM 2023-02-05 08:55:00 Rianna [facility] BASIC METABOLIC PANEL (NA, 2023-02-05 08:55:00 Dania Blanca [facility] K, CL, CO2, GLUCOSE, BUN, Medica l [place]over CREATININE, [place]) CBC WITHOUT DIFF 2023-02-05 08:55:[address] [facility] PREPARE PACKED RBC 2023-02-05 05:44:22 April [facility] CBC WITH DIFF 2023-02-05 02:14:00 Rianna [facility] FECAL PATHOGENS BY PCR 2023-02-05 02:14:00 Angie [facility] PREPARE PACKED RBC 2023-02-05 01:05:57 [facility] (LAB 2023-02-04 19:42:00 Devon Dewitt [facility] ONLY) [facility] VANCOMYCIN RANDOM LEVEL 2023-02-04 19:41:00 Dania Blanca [facility] FLOW CYTOMETRY 2023-02-04 19:41:00 Rianna [facility] CD4 SUBSET ASSAY 2023-02-04 19:41:00 Cuong Quispe [facility] TRANSTHORACIC ECHO (TTE) 2023-02-04 17:08:26 April Little [facility] COMPLETE W/ CONTRAST Medical Bra nch HB ABO GROUPING 2023-02-04 17:04:00 Rianna [facility] MAGNESIUM 2023-02-04 10:26:00 Rianna [facility] BASIC METABOLIC PANEL (NA, 2023-02-04 10:26:00 Dania Blanca [facility] K, CL, CO2, GLUCOSE, BUN, Medica l Branch CREATININE, CA) CBC WITHOUT DIFF 2023-02-04 10:26:[address] [facility] MRSA / MSSA SCREEN BY PCR, 2023-02-04 02:02:00 Dania Blanca [facility] CREATININE, URINE RANDOM 2023-02-04 02:00:00 Dania [facility] TOTAL PROTEIN, URINE 2023-02-04 02:00:00 Dania Blanca [facility] UREA NITROGEN, URINE 2023-02-04 02:00:00 Dania Blanca [facility] SODIUM, URINE RANDOM 2023-02-04 02:00:00 Dania Blanca [facility] BASIC METABOLIC PANEL (NA, 2023-02-03 20:39:00 Dania Blanca [facility] K, CL, CO2, GLUCOSE, BUN, Medica l Branch CREATININE, CA) CBC WITH DIFF 2023-02-03 20:39:00 Sidney, [facility] AFB CULTURE 2023-02-03 16:32[facility] TUBERCULOSIS 2023-02-03 16:32:00 Asha Milligan [facility] COMPLEX PCR [facility] URINALYSIS 2023-02-03 11:26:00 Paulie Florez [facility] MAGNESIUM 2023-02-03 09:53:00 [facility] COMP. METABOLIC PANEL 2023-02-03 09:53:00 [facility] ([id number]) [facility] CBC WITH DIFF 2023-02-03 09:53:00 Sidney [facility] PROTHROMBIN TIME / INR 2023-02-03 09:53:00 Sidney [facility] FIBRINOGEN 2023-02-03 09:53:00 Sidney [facility] CMV BY QUANTITATIVE NAAT 2023-02-03 09:53:00 [facility]ie [facility] US ABDOMEN LIMITED WITH 2023-02-03 06:48:00 [facility] THORAX WO CONTRAST 2023-02-03 05:21:[address] [facility] HCV ANTIBODY 2023-02-02 17:02:00 Jose Enrique [facility] HEPATITIS C VIRUS (HCV) BY 2023-02-02 17:02:00 Cuong Quispe [facility] QUANTITATIVE NAAT [facility] SYPHILIS IGG/IGM 2023-02-02 16:56:00 [facility] CRYPTOCOCCAL ANTIGEN 2023-02-02 16:56:00 Ramin [facility] CSF/SERUM [facility] RPR (QUANTITATIVE) 2023-02-02 16:56:00 [facility] QUANTIFERON-TB ASSAY 2023-02-02 16:56:[address] [facility] QFT TB2 MINUS NIL 2023-02-02 16:56:00 [facility] ALBUMIN BODY FLUID 2023-02-02 10:47:00 Cuong Quispe [facility] T.PROTEIN BODY FLUID 2023-02-02 10:47:00 Cuong Quispe [facility] BODY FLUID DIRECT COUNT 2023-02-02 10:47:00 Jose Enrique [facility] BODY FLUID (BACTEC BOTTLE) 2023-02-02 10:47:00 Asha Milligan [facility] CYTO ABDOMINAL FLUID 2023-02-02 10:47:00 Cuong Quispe [facility] COMP. METABOLIC PANEL 2023-02-02 10:26:00 Jose Enrique [facility] ([id number]) [facility] FIBRINOGEN 2023-02-02 10:24:00 Jose Enrique [facility] HUMAN IMMUNODEFICIENCY 2023-02-02 10:24:00 Jose Enrique [facility] VIRUS 1 (HIV-1) BY [facility] QUANTITATIVE NAAT COVID-19 (ID NOW RAPID 2023-02-02 05:35:00 Paulie Florez [facility] TESTING) [facility] LAB ONLY COVID 2023-02-02 05:35:00 Paulie Florez [facility] INTERPRETATION [facility] CT ABDOMEN PELVIS W 2023-02-02 03:45:03 [facility] AC PANEL 20 + LACTIC ACID 2023-02-02 02:48:00 [facility] VW 2023-02-02 02:25:19 Paulie Florez [facility] HB ECG ROUTINE & RHYTHM 2023-02-02 01:58:14 Paulie Florez [facility] STRIP [facility] [facility] TROPONIN I 2023-02-02 01:46:00 Paulie Florez [facility] COMP. METABOLIC PANEL 2023-02-02 01:46:00 [facility] ([id number]) [facility] CBC WITH DIFF 2023-02-02 01:46:00 Paulie Florez [facility] PROTHROMBIN TIME / INR 2023-02-02 01:46:00 Paulie Florez [facility] ACTIVATED PARTIAL THRMPLAS 2023-02-02 01:46:00 Paulie Florez [facility] MAURI [facility] N-TERMINAL PRO-BNP 2023-02-02 01:46:00 Paulie Florez [facility] LACTIC ACID WHOLE BLOOD 2023-02-02 01:46:00 Paulie Florez [facility] BLOOD CULTURE SCREEN 2023-02-02 01:46:00 Paulie Florez [facility] ity [facility] LIPASE 2023-02-02 01:46:00 Paulie Florez [facility] AUTHORIZATION FOR RELEASE 2022-07-20 06:01:00 Doctor Unassigned, [facility] PHOSPHORUS 2022-06-25 11:21:00 Carline [facility] CREATINE KINASE 2022-06-25 11:21:00 Carline [facility] MAGNESIUM 2022-06-25 11:21:00 Carline [facility] BASIC METABOLIC PANEL (NA, 2022-06-25 11:21:00 Claudio Crowley [facility] K, CL, CO2, GLUCOSE, BUN, Medica l Branch CREATININE, CA) CBC WITH DIFF 2022-06-25 11:21:00 Carline [facility] TRANSTHORACIC ECHO (TTE) 2022-06-24 16:05:00 Claudio Crowley [facility] PHOSPHORUS 2022-06-24 13:25:00 Claudio Crowley [facility] MAGNESIUM 2022-06-24 13:25:00 [facility] BASIC METABOLIC PANEL (NA, 2022-06-24 13:25:00 Claudio Crowley [facility] K, CL, CO2, GLUCOSE, BUN, Medica l Branch CREATININE, CA) CBC WITH DIFF 2022-06-24 13:25:00 [facility]UTE [facility]ARE VENOUS BLOOD 2022-06-23 16:52:00 Claudio Crowley [facility] GAS [facility] HB ECG ROUTINE & RHYTHM 2022-06-23 16:38:00 Claudio Crowley [facility] STRIP [facility] Branch PHOSPHORUS 2022-06-23 10:34:00 Claudio Crowley [facility] MAGNESIUM 2022-06-23 10:34:00 Claudio Crowley [facility] HEPATIC FUNCTION PANEL 2022-06-23 10:34:00 Claudio Crowley [facility] ([id number]) (ALB,T.PRO,BILI Medical Branch T,BU/BC,ALT,AST,ALK PHOS) BASIC METABOLIC PANEL (NA, 2022-06-23 10:34:00 Claudio Crowley [facility] K, CL, CO2, GLUCOSE, BUN, Medica [facility] CREATININE, CA) DIFF CONSULT 2022-06-23 10:34:[address] [facility] CBC WITH DIFF 2022-06-23 10:34:00 Carline [facility] RETICULOCYTES AUTOMATED 2022-06-23 10:34:00 Claudio Crowley [facility] VITAMIN D, 25-OH 2022-06-23 10:34:00 Carline [facility] CD4 SUBSET ASSAY 2022-06-22 17:16:00 Lyric [facility] FERRITIN SERUM 2022-06-22 09:53:00 Carline Claudio [facility] AMMONIA, PLASMA 2022-06-22 09:53:00 Lyric [facility] THYROID STIMULATING 2022-06-22 09:53:00 Claudio Crowley [facility] HORMONE [facility] BASIC METABOLIC PANEL (NA, 2022-06-22 09:53:00 Lyric [facility] K, CL, CO2, GLUCOSE, BUN, [facility] CREATININE, CA) CBC WITH DIFF 2022-06-22 09:53:00 Lyric [facility] POCT GLUCOSE (AUTOMATED) 2022-06-22 09:46:00 [facility] URINALYSIS 2022-06-21 22:58:00 Jax Cartwright [facility] URINE CULTURE 2022-06-21 22:57:00 Singer [facility] URINE DRUG (IMMUNOASSAY) - 2022-06-21 22:57:00 Jax Cartwright [facility] COMPREHENSIVE DRUG SCREEN [facility] W/O REFLEX CD4/CD8 SUBSET ASSAY 2022-06-21 22:24:00 Jax Cartwright [facility] MRSA / MSSA SCREEN BY PCR, 2022-06-21 20:08:00 Jax Cartwright [facility] LACTIC ACID WHOLE BLOOD 2022-06-21 19:40:00 Singer [facility] BLOOD CULTURE SCREEN 2022-06-21 19:38:00 Jax Cartwright [facility] VITAMIN B12, LEVEL 2022-06-21 19:38:00 Carline [facility] FOLATE 2022-06-21 19:38:00 Carline [facility] COMP. METABOLIC PANEL 2022-06-21 19:38:00 Jax [facility] ([id number]) [facility] IRON PANEL 2022-06-21 19:38:00 Carline [facility] CBC WITH DIFF 2022-06-21 19:38:00 Singer [facility] RAPID INFLUENZA A/B 2022-06-21 19:38:00 Jax Cartwright [facility] HIV 1/2 AG-AB WITH REFLEX 2022-06-21 19:38:[address] [facility] HIV 1/2 AB SUPPLEMENTAL 2022-06-21 19:38:00 Ivy Gunter [facility] TESTING Medical Branch COVID-19 (ID NOW RAPID 2022-06-21 19:38:00 Jax Cartwright [facility] TESTING) [facility] ONLY COVID 2022-06-21 19:38:00 Jax Cartwright [facility] INTERPRETATION [facility] XR CHEST 1 VW 2022-06-21 19:34:21 Singer [facility] CRITICAL CARE 2022-06-21 19:16:00 Singer [facility] o f [facility] CALCIUM, IONIZED 2022-06-13 08:43:00 Mylene [facility] CBC/DIFF 2022-06-13 04:12:00 WaRadha arciniega Healt h CREATINE KINASE (CK) 2022-06-13 04:12:00 Dorysmarekela [facility] Health BASIC METABOLIC PANEL 2022-06-13 04:12:00 Waghela [facility] MAGNESIUM 2022-06-13 04:12:00 WaghelaRadha Healt h CBC 2022-06-13 04:12:00 WaelaRadha Healt h DIFFERENTIAL, MANUAL-PAM 2022-06-13 04:12:00 Wamarekela [facility] Health CBC/DIFF 2022-06-12 03:35:00 Alderagriffin Michelleniki [facility] BASIC METABOLIC PANEL 2022-06-12 03:35:00 Alderazi, [facility] Health MAGNESIUM 2022-06-12 03:35:00 Colton Mi Healt h CBC 2022-06-12 03:35:00 Alderazi, Michelleniki [facility] DIFFERENTIAL, MANUAL-PAM 2022-06-12 03:35:00 Alderazi, [facility] CBC/DIFF 2022-06-11 04:42:00 Alderagriffin Michelleniki [facility] BASIC METABOLIC PANEL 2022-06-11 04:42:00 Alderagriffin, [facility] Health MAGNESIUM 2022-06-11 04:42:00 Colton Mi Healt h CBC 2022-06-11 04:42:00 Alderagriffin Michelleniki [facility] BLOOD CULTURE 2022-06-10 16:34:00 Mylene Kelley Healt h CBC/DIFF 2022-06-10 04:45:00 Alderazi, niki [facility] BASIC METABOLIC PANEL 2022-06-10 04:45:00 Alderazi, [facility] Health MAGNESIUM 2022-06-10 04:45:00 Colton Mi [facility] CBC 2022-06-10 04:45:00 Alderazi med [facility] DIFFERENTIAL, MANUAL (NO 2022-06-10 04:45:00 Alderazi, [facility] Health MORPHOLOGY)-[facility] CBC/DIFF 2022-06-09 04:25:00 Alderazi, niki [facility] He[facility] BASIC METABOLIC PANEL 2022-06-09 04:25:00 Alderazi, [facility] Health MAGNESIUM 2022-06-09 04:25:00 Colton Mi Healt h CBC 2022-06-09 04:25:00 Alderazi, [facility] Healt h DIFFERENTIAL, MANUAL (NO 2022-06-09 04:25:00 Alderazi, [facility] Health MORPHOLOGY)-[facility] CBC/DIFF 2022-06-08 04:33:00 Alderagriffin, niki [facility] He[facility] BASIC METABOLIC PANEL 2022-06-08 04:33:00 Alderazi, [facility] Health MAGNESIUM 2022-06-08 04:33:00 Colton Mi Healt h CBC 2022-06-08 04:33:00 Alderazi, [facility] Healt h DIFFERENTIAL, MANUAL-[facility] 2022-06-08 04:33:00 Alderazi, [facility] CBC/DIFF 2022-06-07 04:33:00 Alderazi, [facility] Healt h BASIC METABOLIC PANEL 2022-06-07 04:33:00 Alderazi, [facility] Health MAGNESIUM 2022-06-07 04:33:00 Colton Mi [facility] CREATINE KINASE (CK) 2022-06-07 04:33:00 Allie Bettydeysi [facility] CBC 2022-06-07 04:33:00 Alderazi, [facility] Healt h DIFFERENTIAL, MANUAL-[facility] 2022-06-07 04:33:00 Alderazi, [facility] Health CBC/DIFF 2022-06-06 04:07:00 Alderazi, [facility] Healt h BASIC METABOLIC PANEL 2022-06-06 04:07:00 Alderazi, [facility] Health MAGNESIUM 2022-06-06 04:07:00 Colton Mi [facility]alt [facility] CBC 2022-06-06 04:07:00 Alderazi, [facility] Healt h RBC MORPHOLOGY-[facility] 2022-06-06 04:07:00 Eamon Michelleniki Graham alth TRANSESOPHAGEAL ECHO (ÁNGELA) 2022-06-05 12:39:00 PauloColton [facility] COMPLETE [id number] BLOOD CULTURE 2022-06-05 09:06:00 Mylene Kelley Healt h CBC/DIFF 2022-06-05 05:13:00 Eamon Dinesh [facility] h BASIC METABOLIC PANEL 2022-06-05 05:13:00 Eamon [facility] MAGNESIUM 2022-06-05 05:13:00 [facility] 2022-06-05 05:13:00 Eamon niki [facility] DIFFERENTIAL, MANUAL (NO 2022-06-05 05:13:00 Eamon, [facility] MORPHOLOGY)-[facility] BLOOD CULTURE 2022-06-04 07:39:00 Paulo Coltonvalentin Plunkett [facility] h CBC/DIFF 2022-06-04 04:02:00 Eamon Dinesh [facility] h BASIC METABOLIC PANEL 2022-06-04 04:02:00 Aldbeth [facility] MAGNESIUM 2022-06-04 04:02:00 Paulo Colton Plunkett [facility] h CBC 2022-06-04 04:02:00 Aldbeth Dinesh [facility] DIFFERENTIAL, MANUAL-[facility] 2022-06-04 04:02:00 Aldbeth, [facility] CBC/DIFF 2022-06-03 04:34:00 Eamon Dinesh Plunk[facility] h BASIC METABOLIC PANEL 2022-06-03 04:34:00 Eamon [facility] MAGNESIUM 2022-06-03 04:34:00 Paulo Colton Plunkett [facility] h CBC 2022-06-03 04:34:00 Eamon niki [facility] RBC MORPHOLOGY-[facility] 2022-06-03 04:34:00 Eamon Michelleniki Graham alth CHLAM/GC DNA AMPLI 2022-06-02 16:25:00 Colton Mi alth CBC/DIFF 2022-06-02 00:42:00 Aldbeth Dinesh [facility] h BASIC METABOLIC PANEL 2022-06-02 00:42:00 [facility]iffin[facility]UM 2022-06-02 00:42:00 Colton Mi h CBC 2022-06-02 00:42:00 [facility] DIFFERENTIAL, MANUAL-WAM 2022-06-02 00:42:00 Eamon [facility] BLOOD CULTURE 2022-06-02 00:37:00 Eamon niki [facility] h CREATINE KINASE (CK) 2022-06-01 14:07:00 Eamon [facility] TISSUE EXAM 2022-06-01 10:31:00 [facility] PROC EGD CONTROL 2022-06-01 10:12:00 aRdha [facility] BLEEDING ANY [place] ABO/RH CONFIRMATION 2022-06-01 04:30:00 Dimitrios Garcia CBC/DIFF 2022-06-01 04:25:00 [facility]amon [facility] BASIC METABOLIC PANEL 2022-06-01 04:25:00 Eamon [facility] MAGNESIUM 2022-06-01 04:25:00 Colton Mi TYPE AND SCREEN 2022-06-01 04:25:00 Dimitrios Garcia Gold J CBC 2022-06-01 04:25:00 Eamon [facility]iki [facility] T&S - COLLECTION 2022-06-01 04:25:00 Dimitrios Garcia [place] DIFFERENTIAL, MANUAL (NO 2022-06-01 04:25:00 Eamon niki [facility] MORPHOLOGY)-[facility] U/S ABDOMEN LIMITED 2022-05-31 23:10:00 Eamon niki [facility] ealth SARS-COV-2, FLU A/B, RSV 2022-05-31 17:46:00 Radha [facility] [place] CORONAVIRUS, COVID-19, TALYA 2022-05-31 17:46:00 Mellissa Garcia [facility] [place] ACTIN (SM) AB 2022-05-31 16:30:00 Eamon, niki [facility] MITOCHONDRIAL (M2) 2022-05-31 16:30:00 Eamon, [facility] alth ANTIBODY HEPATITIS PANEL 2022-05-31 16:24:00 Eamon, [facility] h BREE 2022-05-31 16:24:00 Aldbeth, [facility] CERULOPLASMIN 2022-05-31 16:24:00 Alderazi, [facility] FERRITIN 2022-05-31 16:24:00 Alderazi, [facility] IRON PROFILE 2022-05-31 16:24:00 Alderagriffin, [facility] TZLYH-3-WDTFKPBMERO 2022-05-31 16:24:00 Alderazi, [facility] ealth AFP, TUMOR MARKER 2022-05-31 16:24:00 Eamon, [facility] HEPATITIS B SURFACE AB 2022-05-31 16:24:00 Alderazi, [facility] HEPATITIS A VIRUS AB IGG 2022-05-31 16:24:00 Alderazi, [facility] HCV RNA QUANT, PCR 2022-05-31 16:24:00 Eamon, [facility] alth SEQUENTIAL COMPRESSION 2022-05-31 16:21:58 Alderazi, [facility] PUMP BLOOD CULTURE 2022-05-31 04:51:00 Eli [facility] CBC/DIFF 2022-05-31 04:45:00 Aldbeth, [facility] BASIC METABOLIC PANEL 2022-05-31 04:45:00 Alderazi, [facility] MAGNESIUM 2022-05-31 04:45:00 Colton Mi [facility] CBC 2022-05-31 04:45:00 Alderagriffin, [facility] DIFFERENTIAL, MANUAL-WAM 2022-05-31 04:45:00 Alderazi, [facility] CREATINE KINASE (CK) 2022-05-31 04:45:00 Colton Mi [facility] VANCOMYCIN, TROUGH 2022-05-30 18:32:00 Dimitrios Gil alth Jonathan BLOOD CULTURE 2022-05-30 13:11:00 Alderazi, [facility] h CBC/DIFF 2022-05-30 05:00:00 Alderazi, [facility] h BASIC METABOLIC PANEL 2022-05-30 05:00:00 Alderazi, [facility] CBC 2022-05-30 05:00:00 Alderazi, [facility] DIFFERENTIAL, MANUAL-WAM 2022-05-30 05:00:00 Alderazi, [facility] VANCOMYCIN, TROUGH 2022-05-29 15:35:00 Pia EscDimitrios umaña Santos alth Jonathan BLOOD CULTURE 2022-05-29 15:34:00 Alderazi, [facility] h CBC/DIFF 2022-05-29 04:35:00 Alderazi, [facility] h BASIC METABOLIC PANEL 2022-05-29 04:35:00 Alderazi, [facility] PT/INR/PTT 2022-05-29 04:35:00 Alderazi, [facility] h CBC 2022-05-29 04:35:00 Alderazi, [facility] h DIFFERENTIAL, MANUAL (NO 2022-05-29 04:35:00 Alderazi, [facility] MORPHOLOGY)-[facility] STRONGYLOIDES AB IGG, 2022-05-28 11:54:00 Colton Mi [facility] ARIEL VANCOMYCIN, TROUGH 2022-05-28 08:20:00 Pia Chela, Dimitrios Santos alth Jonathan CBC/DIFF 2022-05-28 08:20:00 Alderagriffin, [facility] h BASIC METABOLIC PANEL 2022-05-28 08:20:00 Alderazi, [facility] CBC 2022-05-28 08:20:00 Alderazi, [facility] h MAGNESIUM 2022-05-28 08:20:00 Alderagriffin, [facility] h LIVER PROFILE 2022-05-28 08:20:00 Alderagriffin, [facility] h BLOOD CULTURE 2022-05-28 08:20:00 Alderagriffin, [facility] h GRAM-POS BLOOD CULTURE 2022-05-28 08:20:00 Alderazi, [facility] TRANSTHORACIC ECHO (TTE) 2022-05-28 02:00:00 Aldbeth [facility] COMPLETE [id number] BLOOD CULTURE 2022-05-27 13:40:00 Eamon, Michelleniki Smith h BLOOD CULTURE 2022-05-27 13:39:00 Aldbeth niki Smith h GRAM-POS BLOOD CULTURE 2022-05-27 13:39:00 Eamon, [facility] CBC/DIFF 2022-05-27 04:47:00 German [facility]vt [facility] COMPREHENSIVE METABOLIC 2022-05-27 04:47:00 David [facility] PANEL CRYPTOCOCCAL ANTIGEN 2022-05-27 04:47:00 O'Cuong Babin [facility] CBC 2022-05-27 04:47:00 Parrish Hernandez ealt MAGNESIUM 2022-05-27 04:47:00 Dinesh Knutson h INFUSION PUMP 2022-05-27 02:16:14 Dimitrios Gil Jonathan FUNGUS STAIN AND CULTURE 2022-05-26 13:21:00 Sandra Fernández I [facility] CELL COUNT, CSF 2022-05-26 13:19:00 Sandra Fernández h GLUCOSE, CSF 2022-05-26 13:19:00 Sandra Fernández h T PROTEIN, CSF 2022-05-26 13:19:00 Sandra Fernández h CELL COUNT, CSF 2022-05-26 13:19:00 Sandra Fernández h CRYPTOCOCCAL ANTIGEN 2022-05-26 13:19:00 O'Cuong Babin [facility] VDRL, CSF 2022-05-26 13:19:00 O'Cuong Babin h CMV PCR QUAL 2022-05-26 13:19:00 O'Cuong Babin h CSF CULTURE AND GRAM STAIN 2022-05-26 13:19:00 Sandra Fernández [facility] CEREBROSPINAL FLUID 2022-05-26 13:19:00 Sandra Fernández enoch CYTOLOGY MRI BRAIN W AND W/O 2022-05-26 10:44:05 German Hernandezvt [employer] CONTRAST BLOOD CULTURE 2022-05-26 05:49:00 Parrish Hernandez enoch GRAM-POS BLOOD CULTURE 2022-05-26 05:49:00 [facility] 2022-05-26 05:45:00 Parrish Hernandez enoch HCV RNA QUANT, PCR 2022-05-26 05:44:00 German [facility] IRON PROFILE 2022-05-26 05:44:00 Parrish Hernandez enoch FOLIC ACID 2022-05-26 05:44:00 [facility]R/PTT 2022-05-26 04:38:00 Parrish Hernandez IP CONSULT TO PHYSICAL 2022-05-26 04:33:15 [facility] [employer] [facility] HEAD W/O CONTRAST 2022-05-25 23:21:47 Sandra Fernández I [facility] CT CHEST W CONTRAST 2022-05-25 23:21:47 Sandra Fernández enoch URINALYSIS W/REFLEX TO 2022-05-25 22:30:00 Sandra Fernández I [facility] URINE CULTURE URINALYSIS 2022-05-25 22:30:00 Sandra [facility]dez [facility] URINE CULTURE COLLECTION 2022-05-25 22:30:00 Sandra Fernández I [facility] KIT URINE CULTURE 2022-05-25 22:30:00 Sandra Fernández SARS-COV-2, FLU A/B, RSV 2022-05-25 20:52:00 Sandra Fernández I [facility] SARS-COV-2, FLU A/B, & RSV 2022-05-25 20:52:00 [facility] URINALYSIS 2022-05-25 17:47:00 [facility] URINALYSIS 2022-05-25 17:47:00 Olya Bullard Sarah CBC (WITHOUT DIFFERENTIAL) 2022-05-25 14:14:00 Olya Bullard [facility] CD4/CD8 RATIO GRP 2022-05-25 14:14:00 Olya Bullard a lt BASIC METABOLIC PANEL 2022-05-25 14:14:00 Olya Bullard [facility] TROPONIN I 2022-05-25 14:14:00 Olya Bullard Danilo h LIVER PROFILE 2022-05-25 14:14:00 Olya Bullard [facility] h FERRITIN 2022-05-25 14:14:00 Parrish Hernandez ealt VITAMIN B12 2022-05-25 14:14:00 Parrish Hernandez ealth 12 LEAD EKG 2022-05-25 14:06:45 Olya Bullard Sarah XR CHEST 1 VW 2021-07-26 01:58:21 Jannette Gallegos [facility] Branch NOTICE OF PRIVACY 2021-07-26 00:42:18 Doctor Unassigned, [facility] PRACTICES [place] [facility] CONSENT/REFUSAL FOR 2021-07-26 00:41:47 Doctor Unassigned, [facility] DIAGNOSIS AND TREATMENT [place] [facility] Vaccines Ordered - Print 2020-08-22 15:48:30 Ubaldo Powell [facility] Consent/Declination Forms Health Addiction Recovery Social 2020-06-13 15:28:17 Luna Harman Community Work [facility] Health Psychotherapy 30 (16-37*) 2020-05-09 11:38:33 Dania Faye [facility] min - [id number] (with patient Health and/or family member) [facility] Brief Follow Up 2020-05-09 11:38:33 Dania Faye [facility] Brief Follow Up 2020-04-25 11:32:20 Dania Faye [facility] Psychotherapy 30 (16-37*) 2020-04-25 11:31:47 Dania Faye [facility] min - [id number] (with patient Health and/or family member) Psychotherapy 30 (16-37*) 2020-02-22 16:23:07 Dania Faye [facility] min - [id number] (with patient Health and/or family member) IB Brief Follow Up 2020-02-22 16:23:07 Dania Faye C [facility] Psychotherapy 30 (16-37*) 2020-01-28 12:00:44 Dania Faye [facility] min - [id number] (with patient Health and/or family member) IB Brief Follow Up 2020-01-28 12:00:21 Dania Faye [facility] Psychotherapy 30 (16-37*) 2019-12-30 12:44:19 Dania Faye [facility] min - [id number] (with patient Health and/or family member) [facility] Brief Follow Up 2019-12-30 12:44:19 Dania Faye [facility] Psychotherapy 30 (16-37*) 2019-12-01 20:03:07 Dania Faye [facility] min - [id number] (with patient Health and/or family member) IB Brief Follow Up 2019-12-01 20:02:51 Dania Faye [facility] Psychotherapy 30 (16-37*) 2019-11-17 14:19:33 Dania Faye [facility] min - [id number] (with patient Health and/or family member) IB Brief Follow Up 2019-11-17 14:19:33 Dania Faye [facility] Diagnostic evaluation with 2019-11-01 12:50:29 Eugene Harman [facility] medical - [id number] [facility] Primary Care - Service 2019-10-30 11:25:22 Stella Rasmussen [facility] Comprehensive Health Primary Care - 2019-10-30 11:24:52 Stella Rasmussen [facility] Assesment-Comprehensive Health [facility] Primary Care Medical Case 2019-10-30 11:24:52 Stella Rasmussen [facility] Behavioral Health - 2019-10-26 15:52:32 Dania Faye C ommunity Psychiatry [facility] Assessment - 2019-10-26 15:52:19 Dania Faye ommunity [employer] Health Diagnostic evaluation (no 2019-10-26 15:52:19 Dania Faye [facility] medical) - [id number] [facility] Vx - Ix admin for 2019-10-26 15:27:10 Chanel Nielson [facility] Medicare patients Health Fluzone Quadrivalent IM 2019-10-26 15:27:10 [facility] 0.5 mL Health (PF) Primary Care SLW Meeting W 2019-10-26 10:00:01 Tyree Milligan [facility] Other Health Primary Care Service 2019-10-26 10:00:01 Tyree Milligan y [facility] Linkage Health Vision 2019-10-26 09:33:48 Chanel Nielson [place] [facility]munity Health Integrated Behavioral 2019-10-26 09:28:33 Chanel Nielson [facility] Health Assessment ([facility]) Health Vaccines Ordered - Print 2019-10-26 09:24:06 Chanel Nielson [facility] Consent/Declination Forms [facility] Vx - Ix admin for 2019-04-23 09:23:17 Cristiana Luther [facility] Medicare patients Health Pneumovax 23 Injection 2019-04-23 09:23:17 Cristiana Luther [facility] Injectable 25 MCG/0.5ML Health Integrated Behavioral 2019-04-23 09:10:11 Cristiana Luther [facility] Health Assessment ([facility]) Health Vaccines Ordered - Print 2019-04-23 09:07:33 Cristiana Luther [facility] Consent/Declination Forms Health Contact Insp/Mod 2018-10-30 14:18:21 Luca Wilkins Comm [facility] (MODIFICAJ CONTACT LENX Health SPX SUPVJ ADAPTATION) Sphere, bif, plano to +/- 2018-09-25 15:35:28 Jerri Marcum [facility] 4.00d, per lens Health Frames, purchases deluxe 2018-09-25 15:35:07 Jerri Marcum [facility] Health Oph US Dx Crnl Pachymetry 2018-09-25 15:27:56 Kt Delong [facility] UNI/BI Health COMPUTERIZED OPHTHALMIC 2018-09-25 15:27:47 Kt Delong [facility] IMAGING OPTIC NERVE Health Est Patient Comprehensive 2018-09-25 15:27:32 DelongKt [facility] [id number] Health Contact Lens Fitting 2018-09-25 14:46:48 Luca Wilkins [facility] (RX&FITG C-LENS SUPVJ CRNL Healt h LENS OU XCPT APHK) New Patient Intermediate 2018-09-25 14:44:38 Luca Wilkins [facility] [id number] [facility] Primary Care Medical Case 2018-07-25 11:38:42 Stella Rasmussen [facility] Dental - Internal 2018-07-25 11:21:36 Cristiana Luther [facility] Health Vision 2018-07-24 13:18:37 Cristiana Luther [facility] Primary Care Medical Case 2018-07-01 13:06:47 Stella Rasmussen [facility] Primary Care Medical Case 2018-06-19 15:54:57 Cameron Estrada [facility] Health Vision 2018-06-13 12:36:01 Cristinaa Luther [facility] Primary Care Medical Case 2018-05-30 12:53:02 Cameron [facility]strada [place] [facility] Primary Care Medical Case 2018-05-26 17:54:32 Cameron Estrada [facility] Primary Care Medical Case 2018-05-20 08:54:[address] [facility] Health Addiction Service Case 2018-05-16 16:18:50 Cameron Estrada y Community Management [facility] Primary Care - Service 2018-05-16 16:18:45 Cameron Estrada y Community Planning Comprehensive Health Primary Care - 2018-05-16 16:18:45 Cameron Estrada Comm nity [facility] Behavioral Health - 2018-05-16 16:18:45 Cameron Estrada C ommunity Psychiatry Health Primary Care Medical Case 2018-05-16 16:18:00 Cameron Estrada Community Management Health Vision 2018-05-16 14:16:27 Dede Anderson [facility] Venipuncture 2018-05-02 14:17:11 Dede [facility] Plan of Care Planned Activity Planned Date Details Comments Source Future Scheduled 2023-01-26 [facility] Test 08:53:18 malignant neoplasm of colon (procedure) [code = 684442190] Future Scheduled 2023-01-26 [facility] Test 08:53:18 malignant neoplasm of colon (procedure) [code = 229780264] Future Scheduled 2023-01-26 [facility] Test 08:53:18 malignant neoplasm of colon (procedure) [code = 198398295] Future Scheduled 2023-01-26 COVID-19 VACCINE (#1) [facility] Test 08:53:18 [code = COVID-19 VACCINE (#1)] Future Scheduled 2023-01-26 [facility] Test 08:53:18 malignant neoplasm of colon (procedure) [code = 693065098] Future Scheduled 2023-01-26 [facility] Test 08:53:18 malignant neoplasm of colon (procedure) [code = 678853036] Future Scheduled 2023-01-26 SHINGLES VACCINES (1 Met [facility] Test 08:53:18 of 2) [code = SHINGLES VACCINES (1 of 2)] Future Scheduled 2023-01-26 INFLUENZA VACCINE Method [facility] Test 08:53:18 [code = INFLUENZA VACCINE] Future Scheduled 2022-12-21 COVID-19 VACCINE (#1) [facility] Test 00:05:26 [code = COVID-19 VACCINE (#1)] Future Scheduled 2022-12-21 COLONOSCOPY SCREENING [facility] Test 00:05:26 [code = COLONOSCOPY SCREENING] Future Scheduled 2022-12-21 SHINGLES VACCINES (1 Met [facility] Test 00:05:26 of 2) [code = SHINGLES VACCINES (1 of 2)] Future Scheduled 2022-12-21 INFLUENZA VACCINE [facility] Test 00:05:26 [code = INFLUENZA VACCINE] Future Scheduled 2022-06-19 HEPATITIS B VACCINES Met [facility] Test 09:48:10 (1 of 3 - 3-dose series) [code = HEPATITIS B VACCINES (1 of 3 - 3-dose series)] Future Scheduled 2022-06-19 COVID-19 VACCINE (#1) [facility] Test 09:48:10 [code = COVID-19 VACCINE (#1)] Future Scheduled 2022-06-19 COLONOSCOPY SCREENING [facility] Test 09:48:10 [code = COLONOSCOPY SCREENING] Future Scheduled 2022-06-19 SHINGLES VACCINES (1 Met [facility] Test 09:48:10 of 2) [code = SHINGLES VACCINES (1 of 2)] Future Scheduled 2022-06-19 INFLUENZA VACCINE Method [facility] Test 09:48:10 [code = INFLUENZA VACCINE] Future Scheduled 2022-05-12 IMM Influenza [facility]al [facility] Test 00:00:00 (>/= 19 yrs) [code = IMM Influenza Seasonal (>/= 19 yrs)] Future Scheduled 2022-04-12 HEPATITIS B VACCINES Met [facility] Test 21:45:29 (1 of 3 - 3-dose series) [code = HEPATITIS B VACCINES (1 of 3 - 3-dose series)] Future Scheduled 2022-04-12 COVID-19 VACCINE (#1) [facility] Test 21:45:29 [code = COVID-19 VACCINE (#1)] Future Scheduled 2022-04-12 COLONOSCOPY SCREENING [facility] Test 21:45:29 [code = COLONOSCOPY SCREENING] Future Scheduled 2022-04-12 SHINGLES VACCINES (1 Met [facility] Test 21:45:29 of 2) [code = SHINGLES VACCINES (1 of 2)] Future Scheduled 2022-04-12 INFLUENZA VACCINE Method [facility] Test 21:45:29 [code = INFLUENZA VACCINE] Future Scheduled 2020 [facility] Test 00:[facility]:00 malignant neoplasm of colon (procedure) [code = 157672506] Future Scheduled 1976 Imm Pneumococcal 0-64 [facility] Test 00:00:00 (1 - PCV) [code = Imm Pneumococcal 0-64 (1 - PCV)] Future Scheduled 1971-02-25 COVID-19 Vaccine (#1) [facility] Test 00:00:00 [code = COVID-19 Vaccine (#1)] Encounters Start End Encounter Admission Attending Care Care Encounter Source Date/Time Date/Time Type Type Clinicians Facility Department ID 2022-12-31 Inpatient [facility] [id number] H arris 12:22:04 [facility] 2022-12-27 Inpatient OZ, [facility] [id number] H arris 11:46:20 GAYTAN [facility] 2022-12-27 Inpatient TIFFANIE, [facility] [id number] H arris 00:00:00 [facility] 2022-12-26 Inpatient TIFFANIE, [facility] [id number] H arris 00:00:00 [facility] 2022-12-24 Inpatient [facility] [id number] H arris 13:22:57 [facility] 2022-12-24 Inpatient MEJIA, [facility] [id number] Dimitrios 00:00:00 [facility] 2022-12-24 Inpatient MEJIA, [facility] [id number] [place] 00:00:00 [facility] 2022-12-22 Outpatient [facility] [id number] [place] 14:06:[id number] [place] [address] 2022-12-21 Outpatient [facility] [id number] [place] 00:05:[id number] [place] [address] 2022-09-24 Outpatient lc.lettyannitasuki [facility] [id number] Legacy 16:39:01 [id number] [facility]ly [facility] 2022-09-11 Outpatient jus.opal [facility] [id number] Legacy 11:25:03 [id number] [facility] 2022-06-19 Outpatient [facility] [id number] [place] 09:47:46 [id number] [facility] 2022-06-01 Inpatient [facility] [id number] H arris 09:21:11 [facility] 2022-06-01 Inpatient GREEN, [facility] [id number] H arris [facility]31 Inpatient GAEL, [facility] [id number] [facility] 2022-05-31 Inpatient KAIA, [facility] [id number] [facility]:00[facility]00 [facility] 2021-06-13 Inpatient [facility] [id number] [facility] 08:37:00 [facility] 2023-03-04 2023-03-04 Outpatient IVONNE, [facility] [id number] Dimitrios 00:00:00 00:00:00 [facility] 2023-02-19 2023-02-19 Outpatient OZ, [facility] [id number] Pass Christian 00:00:00 00:00:00 GAYTAN Sarah 2023-02-18 2023-02-18 Orders Doctor UBALDO 1.2.840.114 [id number] Univers 00:00:00 00:00:00 Only Unassigned, DEION 350.1.13.10 ity of [facility] 4.2.7.2.686 [facility] [id number] [facility] [address] 2023-02-01 2023-02-06 Inpatient X [facility] [id number] Univers 20:27:00 13:48:00 PEG itarminda of [facility] 2023-02-01 2023-02-06 [facility] Paulie Florez 1.2.840.1 14 [id number] Univers 20:27:00 13:48:00 Encounter Asha Milligan [facility] DEION 350 .1.13.10 ity of [facility] 4.2.7.2.686 [place] [id number] [facility] [address] 2022-12-20 2023-01-10 Inpatient 1 JONNIE [facility] [id number] [place] 20:05:00 18:49:00 WOODY Healsamuel 2023-01-04 2023-01-04 Outpatient [facility] [id number] Pass Christian 00:00:00 00:00:00 [facility] 2023-01-02 2023-01-02 Inpatient [facility] [id number] [place] 12:08:10 13:56:02 [facility] 2022-12-27 2022-12-27 [facility] [id number] [place] 15:30:48 15:48:41 LUCILA Smith 2022-12-22 2022-12-22 Inpatient [facility] [id number] Pass Christian 11:27:46 12:07:53 Health 2022-12-22 2022-12-22 Outpatient BRISA TEJADA [facility] [id number] [place] 00:41:25 04:21:52 Health 2022-12-20 2022-12-20 Emergency [facility] [id number] [place] 21:10:28 21:18:11 [facility] 2022-12-17 2022-12-17 Outpatient F501ONYO [id number] 00:00:00 00:00:00 60 2022-07-20 2022-07-20 Orders Doctor UBALDO 1.2.840.114 [id number] Univers 00:00:00 00:00:00 Only Unassigned, DEION 350.1.13.10 ity of [place] [facility] 4.2.7.2.686 Pietro as [id number] [facility] [address] 2022-06-26 2022-06-26 Transition MERRILL Mishra 1.2.840.114 [id number] Univers 00:00:00 00:00:00 of Care Xavi Bass ALISA 350.1.13.10 ity of [place] [id number] [facility] [address] 2022-06-21 2022-06-25 Inpatient X [facility] [id number] Univers 13:26:00 14:51:00 CLAUDIO ity of [facility] 2022-06-21 2022-06-25 [facility] Jax Cartwright [facility] 1.2.840.1 14 [id number] Univers 13:26:00 14:51:00 Encounter Claudio Crowley 350.1.13.10 ity of [facility] [place] [id number] [facility] 0[address] 2022-05-25 2022-06-13 Hospital 1 PIA [facility] [id number] [place] 19:45:00 17:39:00 Encounter Danilo DANIELLE 2022-06-05 2022-06-05 Inpatient GAEL, [facility] [id number] [place] 12:38:42 12:40:02 [facility] 2022-05-30 2022-06-05 Anesthesia KAIA [facility] [id number] [place] 00:00:00 11:55:00 [facility] 2022-06-01 2022-06-01 Anesthesia NORMA [facility] [id number] Dimitrios 00:00:00 10:49:00 Event OLLIE sr 2022-05-31 2022-05-31 Inpatient [facility] [id number] Pass Christian 22:46:52 23:21:02 [facility] 2022-05-30 2022-05-30 Orders [place], [facility] [id number] Pass Christian 00:00:00 00:00:00 Only Shari Benson [facility] Jessi 2022-05-29 2022-05-29 Clinical Sheppard, [facility] [id number] Pass Christian 00:00:00 00:00:00 Case Mgt Fabienne Healt h 2022-05-28 2022-05-28 Inpatient PIA [facility] [id number] Pass Christian 13:00:38 14:30:14 [facility] JONATHAN 2022-05-26 2022-05-26 Outpatient [facility] [id number] Pass Christian 09:20:30 10:45:34 [facility] 2022-05-25 2022-05-25 Emergency [facility] [id number] Pass Christian 22:40:31 23:22:58 [facility] 2022-05-25 2022-05-25 Emergency [facility] [id number] Pass Christian 00:00:00 00:00:00 [facility] 2022-05-25 2022-05-25 Emergency [facility] [id number] Pass Christian 00:00:00 00:00:00 [facility] 2021-07-25 2021-07-25 Emergency [facility] 1.2.840.114 [id number] Univers 19:22:00 21:30:00 Jannette MURRAY 350.1.13.10 niko [facility] 4.2.7.2.686 [facility] [id number] [address] 2021-07-25 2021-07-25 Emergency X [facility] ERT [id number] Univers 19:22:00 21:30:00 JANNETTE pope [facility] 2021-06-24 2021-06-[address] [facility].01 BP00 [id number] [facility] 22:51:00 19:35:00 01 [facility] 2021-06-25 2021-06-25 Outpatient Chester Montiel [facility] REF BN0 [id number] [facility] 06:22:00 06:22:00 13 [facility] 2021-06-13 2021-06-13 Emergency EM Lawrence Cannon [facility] EZEKIEL BP00 [id number] [facility] 08:40:00 11:30:00 68 [facility] 2021-06-13 2021-06-13 Outpatient Lawrence Cannon [facility] RE[facility] BN0 [id number] [facility] 09:06:00 09:06:00 46 [facility] 2021-04-13 2021-04-13 [facility] unter/ Legacy 00:00:00 00:00:00 Visit Tiffanie Paulino [id number] Communi 481266 [facility] 2021-04-13 2021-04-13 In-person Ubaldo Powell [facility] Adult [id number] Legacy 00:00:00 00:00:00 encounter Tiffanie Paulino Medicine 03580 [facility] 2020-08-22 2020-08-23 In-person Ubaldo Powell [facility] Adult [id number] Legacy 00:00:00 00:00:00 encounter Omaira Salgado Medicine 101 11 [facility] 2020-08-22 2020-08-22 Office [facility] / Legacy 00:00:00 00:00:00 Visit Ubaldo [id number] Com marnie 590907 [facility] 2020-08-22 2020-08-22 Office JAYA Powell [facility] Encounter / Legacy 00:00:00 00:00:00 Visit Ubaldo [id number] Com marnie 205694 [facility] 2020-08-22 2020-08-22 Office Ubaldo Powell [facility] Enco unter/ Legacy 00:00:00 00:00:00 Visit mOaira Salgado 930216 8508 Communi 299401 [facility] 2020-08-15 2020-08-15 Office Cristiana Luther [facility] Enc ounter/ Legacy 00:00:00 00:00:00 Visit Aundrea Martinez [id number] Communi 499736 [facility] 2020-08-152020-08-15 Office Ashkan [facility] Encounter/ Legacy 00:00:00 00:00:00 Visit Cristiana [id number] Com marnie 925391 ty Health 2020-07-27 2020-07-28 [facility] 6121 69-202 Legacy 00:00:00 00:00:00 encounter Behavioral angela 83341 C ommuni [facility] 2020-07-27 2020-07-27 Office Bakari [facility] Encounter/ Legacy 00:00:00 00:00:00 Visit Bienvenido [id number] Co mmnaveen Hunter 830482 ty Health 2020-07-27 2020-07-27 Office Jonnie [facility] Encounter/ Legacy 00:00:00 00:00:00 Visit Milli [id number] Co mmuni 950728 Health 2020-07-15 2020-07-15 In-person Neyda [facility] Encoun ter/ Legacy 00:00:00 00:00:00 encounter Dania Ying [id number] [facility] Health 128495 ty Health 2020-07-12 2020-07-12 Office Desktsaba, [facility] Care Coordination [facility] Encounter/ Legacy 00:00:00 00:00:00 Visit Lois Baer [id number] Britany Preciado 72551 0 ty Health 2020-07-12 2020-07-12 Office Chanel Nielson [facility] Encounter/ Legacy 00:00:00 00:00:00 Visit Lois Baer [id number] Aleksandr 560636 ty Health 2020-06-20 2020-06-20 Office Dominique [facility] Encounter/ Legacy 00:00:00 00:00:00 Visit Lizz [id number] Com marnie 192543 ty Health 2020-06-13 2020-06-19 In-person Dale Harman [facility] [id number] Legacy 00:00:00 00:00:00 encounter Rashida Lara Behavioral 13079 Lizz Ritchie ty Health 2020-06-17 2020-06-17 Office [facility]/ Legacy 00:00:00 00:00:00 Visit Lizz [id number] Com marnie 915129 Health 2020-06-17 2020-06-17 Office JAYA Faye [facility] Encounte r/ Legacy 00:00:00 00:00:00 Visit Dania [id number] Com marnie 026976 ty Health 2020-06-16 2020-06-16 Office [facility]/ Legacy 00:00:00 00:00:00 Visit Lizz [id number] Com marnie 845965 ty Health 2020-06-13 2020-06-13 Office Dale Donis [facility] Encounter/ Legacy 00:00:00 00:00:00 Visit Rashida Lara [id number] [facility] Lizz Fox 995037 Health 2020-05-30 2020-05-30 [facility]/ Legacy 00:00:00 00:00:00 encounter Dania Behavioral [id number] [facility] 195298 Health 2020-05-17 2020-05-17 Office AshkanCristiana [facility] Enc ounter/ Legacy 00:00:00 00:00:00 Visit Chanel Nielson [id number] [id number] [facility] 960711 Health 2020-05-09 2020-05-09 Office JAYA Faye [facility] Encounte r/ Legacy 00:00:00 00:00:00 Visit Dania [id number] Com marnie 684245 Health 2020-05-09 2020-05-09 In-person [facility] [id number] -202 Legacy 00:00:00 00:00:00 encounter Dania Behavioral 39365 C ommuni Health ty Health 2020-05-04 2020-05-04 Office [facility]/ Legacy 00:00:00 00:00:00 Visit Lizz [id number] Com marnie 667647 ty Health 2020-05-04 2020-05-04 Office [facility]/ Legacy 00:00:00 00:00:00 Visit Lizz [id number] Com marnie 376009 Health 2020-05-02 2020-05-02 Office JAYA Fox Encounter/ Legacy 00:00:00 00:00:00 Visit Lizz [id number] Com marnie 354023 [facility] 2020-04-28 2020-04-28 Office JAYA Fox Encounter/ Legacy 00:00:00 00:00:00 Visit Lizz [id number] Com marnie 324986 [facility] 2020-04-26 2020-04-26 Office JUS Rasmussen JUS Encounter/ Legacy 00:00:00 00:00:00 Visit Stella [id number] C ommuni 583464 [facility] 2020-04-25 2020-04-25 Office Dan[facility] En counter/ Legacy 00:00:00 00:00:00 Visit Dale Donis [id number] Communi 048480 [facility] 2020-04-25 2020-04-25 In-person Dania [facility] [id number] Legacy 00:00:00 00:00:00 encounter Dale Harman Beha vioral 58184 [facility] 2020-04-20 2020-04-20 Office [facility] ounter/ Legacy 00:00:00 00:00:00 Visit Supa Hernandez [id number] Communi 433433 [facility] 2020-04-20 2020-04-20 Office Cristiana Luther [facility] Enc ounter/ Legacy 00:00:00 00:00:00 Visit Deedee Jade,Carin [id number] Communi 178840 [facility] 2020-03-17 2020-03-17 Office [facility]co unter/ Legacy 00:00:00 00:00:00 Visit Omaira Salgado 996858 7369 Communi 236125 [facility] 2020-03-17 2020-03-17 Office JAYA Powell Encounter / Legacy 00:00:00 00:00:00 Visit Ubaldo [id number] Com marnie 276814 ty Health 2020-03-17 2020-03-17 Office Ubaldo Powell [facility] Enco unter/ Legacy 00:00:00 00:00:00 Visit Omaira Salgado [id number] 5005 Communi 101617 ty Health 2020-03-17 2020-03-17 In-person Ubaldo Powell [facility] [id number] Legacy 00:00:00 00:00:00 encounter Omaira Salgado Medicine 008 06 Communi ty Health 2020-02-29 2020-02-29 Office Deacon [facility] Encount er/ Legacy 00:00:00 00:00:00 Visit Judith [id number] Com marnie 925161 Health 2020-02-22 2020-02-22 Office Neyda [facility] Encounte r/ Legacy 00:00:00 00:00:00 Visit Dania [id number] Com marnie 114150 [facility] 2020-02-22 2020-02-22 In-person Neyda [facility] [id number] -202 Legacy 00:00:00 00:00:00 encounter Dania Behavioral 70049 C ommuni Health [facility] 2020-01-25 2020-01-28 In-person Neyda [facility] 638637 -202 Legacy 00:00:00 00:00:00 encounter Dania Behavioral 81243 C ommuni Health ty Health 2020-01-25 2020-01-25 Office Neyda [facility] Encounte r/ Legacy 00:00:00 00:00:00 Visit Dania [id number] Com marnie 830163 [facility] 2019-12-28 2019-12-30 In-person Neyda [facility] [id number] -202 Legacy 00:00:00 00:00:00 encounter Dania Behavioral 56004 C ommuni Health [facility] 2019-12-28 2019-12-28 Office Neyda [facility] Encounte r/ Legacy 00:00:00 00:00:00 Visit Dania [id number] Com mranie 853205 Health 2019-12-23 2019-12-23 Office Edy [facility] Encounter/ Legacy 00:00:00 00:00:00 Visit Sailaja [id number] Com marnie 628142 ty Health 2019-12-23 2019-12-23 Office Bakari [facility] Encounter/ Legacy 00:00:00 00:00:00 Visit Bienvenido [id number] Co brett Hunter 850666 ty Health 2019-12-23 2019-12-23 In-person Bakari-Angela [facility] [id number] Legacy 00:00:00 00:00:00 encounter angela, Behavioral 64536 C ommuni [facility] ty Health 2019-11-30 2019-12-01 In-person Danville [facility] [id number] -202 Legacy 00:00:00 00:00:00 encounter Dania Ying 71250 C ommuni Health ty Health 2019-11-30 2019-11-30 Office Neyda [facility] Encounte r/ Legacy 00:00:00 00:00:00 Visit Dania [id number] Com marnie 388409 ty Health 2019-11-25 2019-11-26 In-person Nisreen [facility] Adult [phone] Legacy 00:00:00 00:00:00 encounter Chanel Medicine 43235 Com marnie ty Health 2019-11-25 2019-11-25 Office [facility] er/ Legacy 00:00:00 00:00:00 Visit Chanel [id number] Com marnie 731926 ty Health 2019-11-25 2019-11-25 Office Nisreen [facility] Encoun er/ Legacy 00:00:00 00:00:00 Visit Chanel [id number] Com marnie 310131 ty Health 2019-11-24 2019-11-24 Office Chanel Nielson [facility] Encounter/ Legacy 00:00:00 00:00:00 Visit Kim Nique [id number] Aleksandr [id number] Health 2019-11-20 2019-11-24 In-person [facility] 6121 [id number] Legacy 00:00:00 00:00:00 encounter angela Behavioral 15444 C ommuni [facility] ty Health 2019-11-20 2019-11-20 Office Leoz [facility] Encounter/ Legacy 00:00:00 00:00:00 Visit Bienvenido [id number] Co brett Brodymo 858681 ty Health 2019-11-18 2019-11-18 Office [facility]/ Legacy 00:00:00 00:00:00 Visit Dale Donis [id number] Communi 243994 ty Health 2019-11-16 2019-11-17 In-person [facility] [id number] -202 Legacy 00:00:00 00:00:00 encounter Dania Ying 55609 C ommuni Health ty Health 2019-11-16 2019-11-16 Office [facility] r/ Legacy 00:00:00 00:00:00 Visit Daina [id number] Com marnie 383293 ty Health 2019-11-13 2019-11-13 Office Roxane [facility] Encoun ter/ Legacy 00:00:00 00:00:00 Visit Angelia bass [id number] Co mmuni 371396 ty Health 2019-10-26 2019-11-01 In-person Dale Harman [facility] Encounter/ Legacy 00:00:00 00:00:00 encounter Fina Reese [id number] [facility] Health 348290 ty Health 2019-10-30 2019-10-30 Office [facility]/ Legacy 00:00:00 00:00:00 Visit Stella [id number] C ommuni 744679 ty Health 2019-10-30 2019-10-30 Office Grady [facility] Encounter/ Legacy 00:00:00 00:00:00 Visit Stella [id number] C ommuni 641671 ty Health 2019-10-30 2019-10-30 Office [facility]/ Legacy 00:00:00 00:00:00 Visit Porfirio [id number] Com marnie 047460 ty Health 2019-10-26 2019-10-28 In-person Chanel Nielson [facility] A dult [id number] Legacy 00:00:00 00:00:00 encounter Radha Worthy 0 [phone] Sandra Fowler ty [facility] 2019-10-26 2019-10-26 Office [facility] Encount er/ Legacy 00:00:00 00:00:00 Visit Chanel [id number] Com marnie [id number] [facility] 2019-10-26 2019-10-26 Office JAYA Milligan Encounte r/ Legacy 00:00:00 00:00:00 Visit Tyree [id number] Com marnie [id number] [facility] 2019-10-26 2019-10-26 Office [place] [facility] counter/ Legacy 00:00:00 00:00:00 Visit Louann Dickson [id number] Shanelle Francois [id number] [facility] 2019-10-26 2019-10-26 [facility]/ Legacy 00:00:00 00:00:00 Visit Chanel [id number] Com marnie [id number] [facility] 2019-10-26 2019-10-26 [facility]/ Legacy 00:00:00 00:00:00 Visit Chanel [id number] Com marnie 442499 [facility] 2019-10-26 2019-10-26 Office Chanel Nielson [facility] Encounter/ Legacy 00:00:00 00:00:00 Visit Radha Worthy [phone] [id number] Sandra Fowler [id number] [facility] 2019-10-22 2019-10-22 Office JAYA Nazario [facility] Encounter / Legacy 00:00:00 00:00:00 Visit Marielena [id number] C ommuni [id number] [facility] 2019-10-20 2019-10-20 Office JAYA Whitmore [facility] Encounter/ Legacy 00:00:00 00:00:00 Visit Porfirio [id number] Com marnie [id number] [facility] 2019-10-20 2019-10-20 Office [facility]/ Legacy 00:00:00 00:00:00 Visit Chanel Nielson [phone] Ruben Valenzuelao 337209 ty Health 2019-10-14 2019-10-14 Office Ashkan JUS LC Encounter/ Legacy 00:00:00 00:00:00 Visit Cristiana [id number] Com marnie 427532 ty Health 2019-10-14 2019-10-14 Office Ashkan JUS LC Encounter/ Legacy 00:00:00 00:00:00 Visit Cristiana [id number] Com marnie 550373 ty Health 2019-10-14 2019-10-14 Office Ashkan JUS LC Encounter/ Legacy 00:00:00 00:00:00 Visit Cristiana [id number] Com marnie 372742 ty Health 2019-10-14 2019-10-14 Office [facility] Legacy 00:00:00 00:00:00 Visit Cristiana [id number] Com marnie 114404 ty Health 2019-10-14 2019-10-14 Office Ashkan [facility]/ Legacy 00:00:00 00:00:00 Visit Cristiana [id number] Com marnie 687319 ty Health 2019-10-14 2019-10-14 Office AshkanCristiana [facility] Enc ounter/ Legacy 00:00:00 00:00:00 Visit Chanel Nielson [phone] [facility] Aurelia Alfaro 942997 ty Health 2019-10-01 2019-10-01 Office NazarioJUS LC Encounter / Legacy 00:00:00 00:00:00 Visit Marielena [id number] Shyann ommuni 091790 ty Health 2019-07-14 2019-07-14 Office AshkanCristiana [facility] Enc ounter/ Legacy 00:00:00 00:00:00 Visit Shoshana Coombs [id number] [facility] [id number] ty Health 2019-05-20 2019-05-20 Office [facility]/ Legacy 00:00:00 00:00:00 Visit Shoshana Coombs [id number] [facility] 970435 ty Health 2019-05-19 2019-05-19 Office Cristiana Luther [facility] Enc ounter/ Legacy 00:00:00 00:00:00 Visit Dale JimenezAdherShoshana osorio [id number] Communi 484250 ty Health 2019-05-11 2019-05-11 Office Cristiana Luther [facility] Enc ounter/ Legacy 00:00:00 00:00:00 Visit Kim Nique [id number] Communi 011635 ty Health 2019-04-23 2019-04-23 Office JAYA Luther Encounter/ Legacy 00:00:00 00:00:00 Visit Cristiana [id number] Com marnie 135630 ty Health 2019-04-23 2019-04-23 Office JAYA Luther Encounter/ Legacy 00:00:00 00:00:00 Visit Cristiana [id number] Com marnie 512859 ty Health 2019-04-23 2019-04-23 Office JAYA Luther Encounter/ Legacy 00:00:00 00:00:00 Visit Cristiana [id number] Com marnie 871330 ty Health 2019-04-23 2019-04-23 Office JAYA Luther [facility] Encounter/ Legacy 00:00:00 00:00:00 Visit Cristiana [id number] Com marnie 575432 ty Health 2019-04-23 2019-04-23 Office Cristiana Luther Mellissa [facility] Enc ounter/ Legacy 00:00:00 00:00:00 Visit Sandra Yoder [phone] [facility] HaimPorfirio [id number] Health 2019-04-23 2019-04-23 In-person Cristiana Luther [facility] Adult [id number] Legacy 00:00:00 00:00:00 encounter Sandra Yoder [facility] [phone] 12 Porfirio Valenzuela ty Health 2019-04-15 2019-04-15 Office JAYA Luther [facility] Encounter/ Legacy 00:00:00 00:00:00 Visit Cristiana [id number] Com marnie 641136 ty Health 2019-04-09 2019-04-09 Office JAYA Luther [facility] Encounter/ Legacy 00:00:00 00:00:00 Visit Cristiana [id number] Com marnie 290701 ty Health 2019-03-11 2019-03-11 Office JAYA Vogel Encounter / Legacy 00:00:00 00:00:00 Visit Juanita [id number] Com marnie 374503 ty Health 2019-02-26 2019-02-26 Office JAYA Murphy Encounter/ Legacy 00:00:00 00:00:00 Visit Jewel Boothe [id number] Com marnie 747017 ty Health 2018-12-25 2018-12-25 Office Status, Fax [facility] Legacy 00:00:00 00:00:00 Visit [id number] Com marnie 657499 ty Health 2018-12-11 2018-12-11 Office HarrisonJAYA baptiste Encounte r/ Legacy 00:00:00 00:00:00 Visit Karie [id number] Com marnie 508510 ty Health 2018-12-10 2018-12-10 Office Juanita Vogel En counter/ Legacy 00:00:00 00:00:00 Visit Cristiana Luther [id number] Phu Regan 098740 ty Health 2018-12-08 2018-12-08 Office JAYA Whitmore Encounter/ Legacy 00:00:00 00:00:00 Visit Porfirio [id number] Com marnie 863312 ty Health 2018-12-05 2018-12-08 In-person Cristiana Luther [facility] Adult [phone] Legacy 00:00:00 00:00:00 encounter Chanel Nielson [facility] 42179 Juanita Castañeda ty Porfirio Whitmore Robert 2018-12-05 2018-12-05 Office JAYA Vogel Encounter / Legacy 00:00:00 00:00:00 Visit Juanita [id number] Com marnie 143930 ty Health 2018-12-05 2018-12-05 Office JAYA Luther Encounter/ Legacy 00:00:00 00:00:00 Visit Cristiana [id number] Com marnie 055487 ty Health 2018-12-05 2018-12-05 Office JAYA Luther Encounter/ Legacy 00:00:00 00:00:00 Visit Cristiana [id number] Com marnie 972208 ty Health 2018-12-05 2018-12-05 Office Matthew Luthertom [place] [facility] Enc ounter/ Legacy 00:00:00 00:00:00 Visit Porfirio Whitmore [id number] Communi 452928 ty Health 2018-12-05 2018-12-05 Office AshkanJAYA [facility] Encounter/ Legacy 00:00:00 00:00:00 Visit Cristiana [id number] Com marnie 593458 ty Health 2018-12-05 2018-12-05 Office Ashkan Crist[facility]/ Legacy 00:00:00 00:00:00 Visit Porfirio Whitmore [id number] Communi 087583 ty Health 2018-12-05 2018-12-05 Office AshkanCristiana [facility] Enc ounter/ Legacy 00:00:00 00:00:00 Visit Chanel Nielson [phone] [facility] Juanita Vogel 090331 ty Porfirio Whitmore Robert 2018-12-01 2018-12-01 Office Status, Fax [facility] Encoun ter/ Legacy 00:00:00 00:00:00 Visit [id number] Com marnie 511751 ty Health 2018-12-01 2018-12-01 Office Status, Fax [facility] Encoun ter/ Legacy 00:00:00 00:00:00 Visit [id number] Com marnie 949774 ty Health 2018-11-21 2018-11-21 Office JAYA Luther [facility] Encounter/ Legacy 00:00:00 00:00:00 Visit Cristiana [id number] Com marnie 468143 ty Health 2018-11-21 2018-11-21 Office CalvinJAYA Encounter / Legacy 00:00:00 00:00:00 Visit Nguyen [id number] Com marnie 418890 ty Health 2018-11-21 2018-11-21 Office JAYA Simpson Encounter / Legacy 00:00:00 00:00:00 Visit Nguyen [id number] Com marnie 786188 ty Health 2018-10-30 2018-10-30 Office Marcum, LC JUS Encounter / Legacy 00:00:00 00:00:00 Visit Jerri [id number] Com marnie 967594 ty Health 2018-10-30 2018-10-30 Office Luca Wilkins [facility] Encoun ter/ Legacy 00:00:00 00:00:00 Visit [id number] Com marnie 517594 ty Health 2018-10-30 2018-10-30 Office Luca Wilkins [facility] Encoun ter/ Legacy 00:00:00 00:00:00 Visit [id number] Com marnie 144714 ty Health 2018-10-30 2018-10-30 Office Luca Wilkins [facility] Encoun ter/ Legacy 00:00:00 00:00:00 Visit Jerri Marcum [phone] [facility] 329418 ty Health 2018-10-30 2018-10-30 In-person Luca Wilkins [facility] Vision 6 [phone] Legacy 00:00:00 00:00:00 encounter Jerri Marcum 9032 1 Communi ty Health 2018-10-14 2018-10-14 Office Roxane [facility] Encoun ter/ Legacy 00:00:00 00:00:00 Visit sheliaThoria [id number] Co mmuni 022148 ty Health 2018-09-26 2018-09-26 Office Luca Wilkins [facility] Encoun ter/ Legacy 00:00:00 00:00:00 Visit [id number] Com marnie 574172 ty Health 2018-09-25 2018-09-25 Office Jossue [facility] Encounter / Legacy 00:00:00 00:00:00 Visit Jerri [id number] Com marnie 537579 ty Health 2018-09-25 2018-09-25 Office Baljeet [facility] Encounter/ Legacy 00:00:00 00:00:00 Visit Kt Harris [id number] Co mmuni 120968 ty Health 2018-09-25 2018-09-25 Office Baljeet [facility] Encounter/ Legacy 00:00:00 00:00:00 Visit Kt Harris [id number] Co mmuni 609067 ty Health 2018-09-25 2018-09-25 Office Kt Delong [facility] E ncounter/ Legacy 00:00:00 00:00:00 Visit Charity Chavez [id number] Communi 778888 ty Health 2018-09-25 2018-09-25 Office Luca Wilkins [facility] Encoun ter/ Legacy 00:00:00 00:00:00 Visit [id number] Com marnie 529375 ty Health 2018-09-25 2018-09-25 [facility] Legacy 00:00:00 00:00:00 Visit [id number] Com marnie 243618 ty Health 2018-09-25 2018-09-25 Office Luca Wilkins [facility] Encoun ter/ Legacy 00:00:00 00:00:00 Visit [id number] Com marnie 578331 ty Health 2018-09-25 2018-09-25 Office Luca Wilkins [facility] Encoun ter/ Legacy 00:00:00 00:00:00 Visit Jerri Marcum [id number] Communi 709933 ty Health 2018-09-25 2018-09-25 Office [facility]/ Legacy 00:00:00 00:00:00 Visit Cristiana [id number] Com marnie 089871 ty Health 2018-09-25 2018-09-25 In-person Luca Wilkins [facility] Vision 6 [phone] Legacy 00:00:00 00:00:00 encounter Jerri Marcum 9021 4 Communi ty Health 2018-09-19 2018-09-19 [facility]/ Legacy 00:00:00 00:00:00 Visit Liliam [id number] Co mmuni 696947 ty Health 2018-09-19 2018-09-19 Office Paulo [facility] Encounter/ Legacy 00:00:00 00:00:00 Visit Liliam [id number] Co mmuni 368900 ty Health 2018-09-19 2018-09-19 Office [facility]/ Legacy 00:00:00 00:00:00 Visit Cristiana [id number] Com marnie 225099 ty Health 2018-09-19 2018-09-19 Office Cristiana Luther [facility] Enc ounter/ Legacy 00:00:00 00:00:00 Visit Chanel Nielson [phone] Porfirio Valenzuela [id number] Health 2018-09-19 2018-09-19 In-person Cristiana Luther [facility] Adult [phone] Legacy 00:00:00 00:00:00 encounter AriannaChanel solis [facility] 95677 Porfirio Valenzuela Health 2018-09-18 2018-09-18 Office JAYA Griffith [facility] Encounter/ Legacy 00:00:00 00:00:00 Visit Grupo [id number] Com marnie 305074 ty Health 2018-09-05 2018-09-05 Office JAYA Luther [facility] Encounter/ Legacy 00:00:00 00:00:00 Visit Cristiana [id number] Com marnie 553340 ty Health 2018-09-05 2018-09-05 Office JAYA Luther [facility] Encounter/ Legacy 00:00:00 00:00:00 Visit Cristiana [id number] Com marnie 403604 ty Health 2018-09-05 2018-09-05 Office JAYA Luther [facility] Encounter/ Legacy 00:00:00 00:00:00 Visit Cristiana [id number] Com marnie 791547 ty Health 2018-08-26 2018-08-26 Office JAYA Sorensen [facility] Encount er/ Legacy 00:00:00 00:00:00 Visit Myla [id number] Com marnie 589176 ty Health 2018-08-18 2018-08-18 Office Stephanie [facility] Encounter/ Legacy 00:00:00 00:00:00 Visit Taya [id number] Com marnie 222015 ty Health 2018-08-01 2018-08-01 Office JAYA Luther Encounter/ Legacy 00:00:00 00:00:00 Visit Cristiana [id number] Com marnie 396841 ty Health 2018-07-30 2018-07-30 Office JAYA Mo [facility] Encounte r/ Legacy 00:00:00 00:00:00 Visit Jannette [id number] Com marnie 687902 ty Health 2018-07-30 2018-07-30 Office Status, Fax JUS JUS Encoun ter/ Legacy 00:00:00 00:00:00 Visit [id number] Com marnie 181127 ty Health 2018-07-30 2018-07-30 Office Status, Fax [facility] Encoun ter/ Legacy 00:00:00 00:00:00 Visit [id number] Com marnie 251308 ty Health 2018-07-30 2018-07-30 Office Status, Fax [facility] Encoun ter/ Legacy 00:00:00 00:00:00 Visit [id number] Com marnie 149862 ty Health 2018-07-25 2018-07-25 Office JAYA Luther [facility] Encounter/ Legacy 00:00:00 00:00:00 Visit Cristiaan [id number] Com marnie 019796 ty Health 2018-07-25 2018-07-25 Office JAYA Luther [facility] Encounter/ Legacy 00:00:00 00:00:00 Visit Cristiana [id number] Com marnie 097475 ty Health 2018-07-25 2018-07-25 Office JAYA Luther [facility] Encounter/ Legacy 00:00:00 00:00:00 Visit Cristiana [id number] Com marnie 486772 ty Health 2018-07-25 2018-07-25 Office Nelson-Roly [facility] Encoun ter/ Legacy 00:00:00 00:00:00 Visit Angelia bass [id number] Co mmuni 080679 ty Health 2018-07-25 2018-07-25 Office JAYA Rasmussen [facility] Encounter/ Legacy 00:00:00 00:00:00 Visit Stella [id number] C ommuni 795066 ty Health 2018-07-25 2018-07-25 Office JAYA Luther [facility] Encounter/ Legacy 00:00:00 00:00:00 Visit Cristiana [id number] Com marnie 187924 ty Health 2018-07-25 2018-07-25 Office Cristiana Luther [facility] Enc ounter/ Legacy 00:00:00 00:00:00 Visit Lizzette Presley [id number] Porfirio Valenzuela 163234 ty Health 2018-07-25 2018-07-25 In-person Cristiana Luther [facility] Adult [phone] Legacy 00:00:00 00:00:00 encounter Lizzette Presley [facility] 56082 Porfirio Valenzuela ty Health 2018-07-24 2018-07-24 Office JAYA Griffith Encounter/ Legacy 00:00:00 00:00:00 Visit Grupo [id number] Com marnie 353675 ty Health 2018-07-24 2018-07-24 Office Cristiana LutherH Enc ounter/ Legacy 00:00:00 00:00:00 Visit Angelia Villanueva [id number] Communi 207914 ty Health 2018-07-24 2018-07-24 Office JAYA Anderson LC Encounter / Legacy 00:00:00 00:00:00 Visit Dede [id number] Com marnie 041312 ty Health 2018-07-11 2018-07-11 Office JAYA Luther Encounter/ Legacy 00:00:00 00:00:00 Visit Cristiana [id number] Com marnie 946217 ty Health 2018-07-10 2018-07-10 Office JAYA Medrano Encoun ter/ Legacy 00:00:00 00:00:00 Visit Monik [id number] Com marnie 753127 ty Health 2018-07-01 2018-07-01 Office JAYA Rasmussen Encounter/ Legacy 00:00:00 00:00:00 Visit Stella [id number] C ommuni 219642 ty Health 2018-06-24 2018-06-24 Office JAYA Whitmore Encounter/ Legacy 00:00:00 00:00:00 Visit Porfirio [id number] Com marnie 828665 ty Health 2018-06-24 2018-06-24 Office JAYA Luther Encounter/ Legacy 00:00:00 00:00:00 Visit Cristiana [id number] Com marnie 190943 ty Health 2018-06-19 2018-06-19 Office JAYA Estrada Encounter/ Legacy 00:00:00 00:00:00 Visit Cameron [id number] Com marnie 968991 ty Health 2018-06-18 2018-06-18 Office JAYA Snow LC Encounter/ Legacy 00:00:00 00:00:00 Visit Sailaja [id number] Com marnie 624884 ty Health 2018-06-16 2018-06-16 Office Status, Fax [facility] Encoun ter/ Legacy 00:00:00 00:00:00 Visit [id number] Com marnie 188519 ty Health 2018-06-16 2018-06-16 Office Status, Fax [facility] Encoun ter/ Legacy 00:00:00 00:00:00 Visit [id number] Com marnie 980239 ty Health 2018-06-16 2018-06-16 Office Status, Fax [facility] Encoun ter/ Legacy 00:00:00 00:00:00 Visit [id number] Com marnie 555469 ty Health 2018-06-16 2018-06-16 Office Status, Fax [facility] Encoun ter/ Legacy 00:00:00 00:00:00 Visit [id number] Com marnie 880190 ty Health 2018-06-16 2018-06-16 Office Status, Fax [facility] Encoun ter/ Legacy 00:00:00 00:00:00 Visit [id number] Com marnie 298752 Health 2018-06-13 2018-06-13 Office JAYA Luther [facility] Encounter/ Legacy 00:00:00 00:00:00 Visit Cristiana [id number] Com marnie 307469 Health 2018-06-13 2018-06-13 Office [facility]/ Legacy 00:00:00 00:00:00 Visit Cristiana [id number] Com marnie 106188 [facility] 2018-06-13 2018-06-13 Office Cristiana Luther [facility] Enc ounter/ Legacy 00:00:00 00:00:00 Visit Lizzette Presley [id number] Tayler Crockett [id number] [place], [facility], Porfirio Flores Jacqueline 2018-06-13 2018-06-13 In-person Cristiana Luther [facility] Adult [phone] Legacy 00:00:00 00:00:00 encounter Lizzette Presley Medicine 54671 Tayler Crockett ty [place], [facility], Angelia Whitmore, Dorene Trejo 2018-06-11 2018-06-11 Office [facility]/ Legacy 00:00:00 00:00:00 Visit Cristiana [id number] Com marnie 849361 ty Health 2018-06-11 2018-06-11 Office AshkanJAYA [facility] Encounter/ Legacy 00:00:00 00:00:00 Visit Cristiana [id number] Com marnie 346143 ty Health 2018-06-10 2018-06-10 Office RamírezJUSH L[facility] Encount er/ Legacy 00:00:00 00:00:00 Visit Britany [id number] Com marnie 579731 ty Health 2018-06-05 2018-06-05 Office JustinJAYA L[facility] Encounter / Legacy 00:00:00 00:00:00 Visit Dede [id number] Com marnie 175265 ty Health 2018-05-29 2018-05-29 Office BraxtonJAYA kay L[facility] Encounter/ Legacy 00:00:00 00:00:00 Visit Cameron [id number] Com marnie 838707 ty Health 2018-05-29 2018-05-29 Office Dominique, LCH [facility] Encounter/ Legacy 00:00:00 00:00:00 Visit Lizz [id number] Com marnie 538953 ty Health 2018-05-29 2018-05-29 Office BraxtonJAYA kay LC Encounter/ Legacy 00:00:00 00:00:00 Visit Cameron [id number] Com marnie 800502 ty Health 2018-05-27 2018-05-27 Office Braxtoneliza, JAYA L[facility] Encounter/ Legacy 00:00:00 00:00:00 Visit Cameron [id number] Com marnie 299296 ty Health 2018-05-26 2018-05-26 Office Braxtoneliza, JUS L[facility] Encounter/ Legacy 00:00:00 00:00:00 Visit Cameron [id number] Com marnie 772228 ty Health 2018-05-26 2018-05-26 Office Dominique, JAYA [facility] Encounter/ Legacy 00:00:00 00:00:00 Visit Lizz [id number] Com marnie 017896 ty Health 2018-05-20 2018-05-20 Office Braxtoneliza, JUS L[facility] Encounter/ Legacy 00:00:00 00:00:00 Visit Cameron [id number] Com marnie 487112 ty Health 2018-05-19 2018-05-19 Office Sean JUS LC Encounter/ Legacy 00:00:00 00:00:00 Visit Cameron [id number] Com marnie 002277 ty Health 2018-05-16 2018-05-19 [facility]-person [facility] [phone] Legacy 00:00:00 00:00:[address] [facility] [address] Kaley Chapa Alejandrina Benitez [facility] 2018-05-16 2018-05-16 Office Anderson, JUS [facility] Encounter / Legacy 00:00:00 00:00:00 Visit Dede [id number] Com marnie 115836 ty Health 2018-05-16 2018-05-16 Office Anderson, JAYA CORTES Encounter / Legacy 00:00:00 00:00:00 Visit Dede [id number] Com marnie 080232 ty Health 2018-05-16 2018-05-16 Office AndersonJAYA harrisMellissa Encounter / Legacy 00:00:00 00:00:00 Visit Dede [id number] Com marnie 122459 ty Health 2018-05-16 2018-05-16 Office AndersonJAYA harrisMellissa Encounter / Legacy 00:00:00 00:00:00 Visit Dede [id number] Com marnie 366668 ty Health 2018-05-16 2018-05-16 Office Loriangela, JAYA CORTESH Encounter/ Legacy 00:00:00 00:00:00 Visit Cameron [id number] Com marnie 376881 ty Health 2018-05-16 2018-05-16 Office Anderson, JUSMellissa L[facility] Encounter / Legacy 00:00:00 00:00:00 Visit Dede [id number] Com marnie 189710 ty Health 2018-05-16 2018-05-16 Office Anderson, JUS JUSH Encounter / Legacy 00:00:00 00:00:00 Visit Dede [id number] Com marnie 179069 ty Health 2018-05-16 2018-05-16 Office Braxtonpoojao, JAYA CORTESH Encounter/ Legacy 00:00:00 00:00:00 Visit Cameron [id number] Com marnie 413897 [facility] 2018-05-16 2018-05-16 Office Bracco, Cameron JUS [facility] Enco unter/ Legacy 00:00:00 00:00:00 Visit Darrius Heath [id number] [facility] Jannette Alfaro 933731 Louann Dickson [facility] Lizz Fox 2018-05-16 2018-05-16 Office Anderson, Dede CORTES L[facility] Enco unter/ Legacy 00:00:00 00:00:00 Visit Kaley Rosen [id number] [facility] 473212 [facility] 2018-05-16 2018-05-16 Office Anderson, JUS [facility] Encounter / Legacy 00:00:00 00:00:00 Visit Dede [id number] Com marnie 292783 Health 2018-05-16 2018-05-16 Office Anderson, Dede CORTES LC Enco unter/ Legacy 00:00:00 00:00:00 Visit Alejandrina Benitez [id number] [facility] 173812 [facility] 2018-05-16 2018-05-16 Office Anderson, Dede CORTES LC Enco unter/ Legacy 00:00:00 00:00:00 Visit Chanel Nielson [phone] [id number] [facility] Kaley Rosen [id number] Alejandrina Benitez [facility] 2018-05-08 2018-05-08 Office Anderson, Dede [place] LC Enco unter/ Legacy 00:00:00 00:00:00 Visit Alejandrina Benitez [id number] [facility] 007186 [facility] 2018-05-08 2018-05-08 Office Anderson, Dede CORTES LC Enco unter/ Legacy 00:00:00 00:00:00 Visit Alejandrina Benitez [id number] [facility] 097928 [facility] 2018-05-02 2018-05-02 Office Anderson, JAYA [facility] Encounter / Legacy 00:00:00 00:00:00 Visit Dede [id number] Com marnie [id number] [facility] 2018-05-02 2018-05-02 Office Anderson, JAYA [facility] Encounter / Legacy 00:00:00 00:00:00 Visit Dede Hernandez [phone] [facility] marnie [id number] Health 2018-05-02 2018-05-02 Office Dede Anderson [facility] Monicao unter/ Legacy 00:00:00 00:00:00 Visit Chanel Nielson [id number] Nathalie Loo 124150 [facility] Results Test Description Test Time Test Comments Results Result Comments Source Cyto Abdominal Fluid 2023-02-06 13:46:10 Test Item Value Reference Range Interpretation Comme nts Case Report (test code = [id number]) Non-Gynecologic Cytology ?Case: [id number] ?Authorizing Provider: ?Cameron Dewitt, ?Collected: ? 02/02/2023 0547 ? MD ? Ordering Location: ? ? Family Medicine (JANELLE 10D) ?Received: ?02/02/2023 0205 ?Pathologist: ? Nasreen Bolivar, ? MD ? Specimen: ? ?ASCITES, FLUID ? Final Diagnosis (test code = [id number] pcd [id number]) VEmJPbsjtPuKXqlhOduPPZsPOhwg6xva3uvcHKsNH Wyg6vpk3QzwDUglNNsFPuncOCdagDujs67mPG1hL6 9CO3lWBQrXnK0SAOnnaE7Rgm1JVVeIEOssOIoG660 k0cce1rirzMjqLG5dXauIZKdtcksQeH0GFsdBZCdz bleWGu9ZRhmGPHwmKE1GFVrfWEmD4NbMICvNX0qwv k2ZXK8UHprGEBwYgT5DCPzqBIpJSYkrEsfXYaiy13 0BKF9JzEtVYEckhAqax05eHHpoNfsHTGubBlgxY2z MaEoGEnnWIAyXxESRbVPP2KAXTEUVQTEKZiZRazpP FAzJpr1MzHfu3tvJ5KewAHwLZ3lFQ0PBYYTRXKVHV 1ZKVYQOvTEQ17KCjDXXRlQCMdWZZVEI8iTF8VNT6G XHSwOPSPvqpRmSZ5ZF6UOWOJMSHPHOwHENCsDI56T KzLvU5EUOVHhKdLsDAvZVNQxX99CZFOBDFpwiNXxJ YEjZRWnMFVyke24ZKJ0RfLqg4Q8YJQaXbQkLENcWV 0vgSkgOYExLN7nSMFvH2nomO6wvtt4EvQmDIJvYqF 4ZMXtcfF5Fzn8UWDjDBycl0qhu7RlW0EcaQTdjCb1 y8rdVEAqOxZ5aMFdDQqgR3scucVtzDTgAJCbXRh3g VxpYoNwPIYae7gklwUdDnXbDKFyMALeLDKqgByrmb e3uD00DKCknY4pdYPhHPxnhfYoKiV6ZXluWYGwJaD 4HYZihNRgRCJtH0rtILQaOMdzLBMeKGilwHNoABQ7 rQvbp7Z6pWLecTImuUlsYvToZmQgSJXEi5EnDWm0r MfoV4VaYEDbKlG7aMPlDJAyDSbsPAAtOHQzqjZ2sZ 28TLpjsoH3yAGht3Mvj28oa525mM7plYHlLJT4QMC zEDFanAPtAQVpTPV0CASetTDiT8mkKKJzVK5atftd IJuvMDasDMOqiBA2LXQadGCrX1ReHPOoZUynUXAtq od0EuKyJg6zlXHyeTctQYyne4akc6uvuZHoOqw0RU GbQwXlLricBZjmu1Jwd7nsTPOird7uKDS1qONdjQl fw6K3iJFqRQEdcGTghwGaWTWpZfE0VQyiNT2brs31 RXHdIHU9oq3guXEvwZufxcApnFAiIDyaR3RvAMKft 205JFFvK6QaYWFvb2U2ebYqYqPaPUJsfJR5mqV5KM TpYGt7vFCkaeR9bdXrtGCfV2xsjA5rAHWcKF3fpsg ka7brXVhgOWpeSXAcyZS0qiE4GCJzxSPvZ0HvsW7k YPDlNLhuNEUqfgj5BzRqAc3nbJNubLdqTSbyTcbjG WdlXHBnbmNvbnRccGduZGVjXHBsYWluXHBsYWluXG MaBSZlFjCtlKjlhYdvaG2tOcHtWkYkKZusUF2lDNM hR1xesERiZPGlHPSaB6leRrIlwO6duYstOQimDkFz QrQpPRhySBHxMXTfZQNtNBEnafGxcmPuvGeiajR2d JD8GTNvMCbhCHJbGYHebPIgpb1lqTnjIQDhZY8gQW SffvDkMFfigXicVRnvFAG1BXYaxTJlnARmsHVeIMR dhIBdNXOnVQIbfTNtAMWfbWdus9Utq0YtcLC0sQ6e t0iuu7ZvNRPavVT7SK72asJ7dZ4xIYYdRI1mAAOxC V1rmPIovWWaBEEuc62voYrxdvOqRINlzzGfVDCbCY luXGYyXGZzMjhcbGFuZzEwMzNcaGljaFxmMlxkYmN lKXYkIOegX6seXvBhJdVuVVebOYE4dM== Final Diagnosis Comment (test code = h4mssGSxKZZzjIOnHQCnL7ryjhC gAADoxOAgN5Sao 5568676644) fsfWFbmEP5lVV7ksYcaiQFcbHEwPVDnCbAqe5xia5 32sTRtw9pmSMTQqmzwmWe4mAdiW78jc1K9CkhdJ53 jeDCtXEZ7IPBvHHQhfCGoQLWgQRX0ETRiiBGfO8qw MGBoZS4krghgDGnvAKqlUNHsqOE3MGPgsJGcC4IdR AYiKGlhTLIogqu4WsNiHv7waBYhuJwhHPqyZLIzFX JfGLdmAVQzAwEzxZSkDPVmDBVuhxHrd899TCtgQOH doO2aQB88FDxsw2Yzx5M1sABiNHGeVHCmkF6uyX9l mOUewbXhIX9kvDZxPOnljGygbiTnF4GuigKihBCgl 3MtQXtsUStqQ7PrfCLgBF6tZC5zoEjgeqSjgJUsSH gexsGdftDdd4Rnrh7mtYWbUEBxnxSJiZJrYg5ecG7 4fE7pNVofaWTfv4F8FZtdukT7WTVwIFOmcqCwxs6o KNLnrrDzfW4rswAHMbZ1iGWkLVOlHUBtx6nrg5pbj qfojjAsrSw6ddxgaFLoDZYaYDFCZNPMGHP3HBp5IC IgTmVnYXRpdmVccGFyICAgLSBDYWxyZXRpbmluOiB czWPvIEgcC8oorNzgmEIuarReW1YceeOcyKUrs9Qc EWisIOfnX7KzoYJkbIDyMCVniswhaECvWnabgzAeq WBbsEQ4arwaR84uRRPulNIqBM7uTXOjRFFvWV4mHF GrEFSapLBvCTYni7gxKPAsgeDsl54lU6omuoRzUAG wM5CmhRAswbFzTrJtcgDriRTPOGSctSvzwK3vzZap pMzfgz4dNDciAAZjOWYxAzBhOBRyIBGzhJBoWOYwM FZlrO2vjLEgHfTFFML5KtjcXkwiCOYqs7LeVpXmkH hlciBkZXRhaWxzLlxwYXJccmkwXHBhciBUaGVzZSB lPLO4gMUcVNX9fFRvbuKiaTarTGKxj5VkCKUdCEpy u4Suvx9ouFGsMMWqrv2= Clinical Information (test code = Clinical Hx: aids. Untreated hep c [id number]) Gross Description (test code = n8alnSPrJDBlrDWsEKOoG9pzzxRqJFJnwRRb [facility], [place] [id number]) lxpRRefOO9fEU7pdGeqyDYsdJXtEPSxBfCzr7dvj6 75zCPyz3dgKFPQrxbziTn0pSeiW87if0F4GsycM7s vWMBrVNdnEOBkUXdlmRSkMLx5RYFvvNGivnRfDkEa BJBvvWZnaYL3KHKzAQ2tohkbUFywGBhnJWNlqiZ2E VNogUFcK5XdVVHaYT2altwnMWA5PTjjBFEaMCN1Df ZvFQSjt2Qbcxw7SzV2LUocWVKvO1BzV8NsDHaaPXT 5EZXjVBViHKFeDK4HAjFxOHs1XsXbHMwnMVRQDIVu OOV1QRGkFXPXTBXmHNYcVHB5FiP9BPQxQQXFWSssW KXoHULiRFHvMVruaVGoDAQxOKGpURZcSNrtaxO5m4 jdLFDzuTQlGFS0ZSyubMVxAXBaJPVmBGqtIiZYUhA uWwM7OVrdHFT3LxR8WMq2ACLBLnEnZbCvQqY5VRB7 BCVpXCi2OIm9LSvSIiUuZTU5CeE7XUN1TWG6VWgeI HygxLQmSCclq3SiVmIyMIFxXVyeyxI3LTAapsWbjC btxV4mOhOiAIhvAPQoxWXrLFycHtLsOSRcaMSWq9B zMFxwbGFpblxmczIyXHBhclxwYXJkIEExLiAgQVND ONSAEoLUNXHVCZgqFYKsYmTgKEx5XWKfHjIff1vam PIiSKNrS9EghsAvGdPtVRt8RCcmjDvdzlWawJAdQL DlkYZxQOSkVELazrKdUQOyd5utZXSgIBtkGZNyeBW dpDSjlBFmqVUpdGXmd1SvarczFT8nNNQlHs2gFO2s i3DqhTCgyKWrp1JeyaTacnYxTRRsiCxzycklnGWmZ QPdrtc3rBPdxIbeKHJfJdRrYBluDsCjPJNfAESxVz MyMlxjZjAgQVNDSVRFUyBGTFVJRFxmczIwXGNmMSA 4AGIZYEmqShvRQ9xipXXpXUYlv3rncJCyRIYhlSre GCWtUAwzXK83EPUgDOWjJZZcoaJzp9InJUiaqmTsw wE8GcL0GzPjGiSbYMX2QYLwm7YatiwyTC4pQCPrWR SldH4nZVlrcF1zRIqfyCq1RVKkBNz0REycPG7hWWF 6Nt8hiKHnBNLqo9JcV9ZusPOziV2ap9oyCBFeXELk cGFyZWQgNCBzbGlkZXMgKDIgSCZFIGFuZCAyIGltb ZZun7A9SSbaVWTzFWpZOAILXHOjUQ2qLBRixGEyvG njvD5bXEobKPUvdw09fREjcQniFOUbvFGxFBCjwBO bJT2iIgPzbZiySHHldPFiSSZrFmAeABWlJ8hmMTCe VYSkKjClW7Kam9fukQwyv3YwqGZmSH07ONDnvGByL SB8DW3ucSewVCS2 Disclaimer (test code = 8268965835) w3szbIBrJHWhj3kbTOErcLBfSoHvOqI cZnRuYmpcd [file] rhDVroGeNwOtNsNYraFDE2aL== Embedded Images (test code = 9553396310) [facility] Platelets (in units): 1 Units~Indication: 2) Platelets < 50,000 with active hemorrhage orpotential to bleed from invasive jgrtymtam6046-96-18 23:32:38 Test Item Value Reference Range Interpretation Comments Unit Blood Type (test A Pos code = 4410) ISBT Blood Type Code 6200 (test code = 819925) Unit Number (test code [id number] = 4411) Blood Expiration Date 841809574082 & Time (test code = 807759) Status Information Issued (test code = 4412) Product Identification Platelets (test code = 4413) Product Code (test K9849Q42 Performed at [facility] code = 4414) Laboratory Services [facility] Blood [address] s [id number] Free: [phone] A No. [id number] [facility] Cryoprecipitate (in units): 1 Units~Indication: 1) Fibrinogen < 100 mg/dL with bleeding or potential for bleeding associated with invasive yzeybdlhu6735-88-01 22:42:38 Test Item Value Reference Range Interpretation Comments Unit Blood Type (test O Pos code = 4410) ISBT Blood Type Code 5100 (test code = 214083) Unit Number (test [id number] code = 4411) Blood Expiration Date & Time (test code = 859059) Status Information Issued (test code = 4412) Product Cryoprecipitate Identification (test code = 4413) Product Code (test [id number] Performed at [facility] code = 4414) Laboratory Services [facility] Blood [address] s [address]Pvnq Free: [phone] A No. [id number] [facility] IMMUNOPHENOTYPING FOR LEUKEMIA/[id number] 21:51:54 Test Item Value Reference Range Interpretation Comments Specimen (test code = Ascitic fluid 0177252170) Gating Population: Lymphocytes (test code = 7711345505) Flow Cytometry ASCITIC FLUID, FLOW Interpretation (test CYTOMETRY ANALYSIS: ? ? code = 6905207671) ?- NO MONOCLONAL B-CELL POPULATION IDENTIFIED. ? ? ?- NO ABERRANT T-CELL POPULATION IDENTIFIED. ? ? ?- SEE COMMENT. Diagnostic Comments Per clinical notes, the (test code = patient is a 52-year-old [id number]) male with past medical history of HIV-AIDS and non compliance with medication. Patient was admitted with ?worsening constipation, nausea, and vomits with fecal material and blood. Patient also has a history of HCV related cirrhosis. Paracentesis was performed and ascitic fluid smear shows many atypical cells for which flow cytometric analysis was performed at the [facility]. Immunophenotyping by flow cytometry detected a heterogeneous population in the lymphocyte gate consisting of a mixture of B-cells and T-cells. The B-cells are polyclonal with no co-expression of CD5 or CD10. The T-cells have no ortega-T cell antigen deletion or aberrant antigen expression. The CD4/CD8 ratio is about 0.1:1. There are no increased events in CD45 dim blast gate. There is no immunophenotypic evidence of a non-Hodgkin lymphoproliferative disorder identified in this specimen. Clinical correlation is suggested. Final interpretation of flow cytometry results requires morphologic and clinical correlation. Flow cytometry is an ancillary test and is not a final diagnosis. T-Cell / NK-Cell Markers (test code = 4505173093) CD2 (test code = Positive; Subset [id number]) CD3 (test code = Positive; Subset 8516964063) CD4 (test code = Positive; Subset 8097832849) CD5 (test code = Positive; Subset 5111783379) CD7 (test code = Positive; Subset 3369278825) CD8 (test code = Positive; Subset 8605127967) CD56 (test code = Negative 5813302266) TRBC1 (test code = Polyclonal 8352269609) B-Cell Markers (test code = 3439585276) CD19 (test code = Positive; Subset 0604879592) CD20 (test code = Positive; Subset 6444094147) CD22 (test code = Positive; Subset 2875056595) Sperry/CD19+ (test Polyclonal code = 4185451950) Lambda/CD19+ (test Polyclonal code = 2040053457) Myeloid Markers (test code = 3892744836) CD14 (test code = Negative 4805354390) Plasma Cell Markers (test code = 5887174315) Other Markers (test code = 3235311240) CD34 (test code = Negative 4435427182) CD38 (test code = Positive; Subset 6284830335) CD45 (test code = Positive 1734795834) Specimen Viability by 97% 7-AAD: (test code = 5064494961) CD10 (test code = Negative 0790745811) JOHNNY (test code = JOHNNY) Disclaimer: Analyte Specific Reagents (ASR) are used in many laboratory tests for standard medical care and generally do not require U.S. Food and Drug Administration (FDA) approval or clearance. This test was developed and its performance characteristics determined by the [facility]. It has not been cleared or approved by FDA. The FDA has determined that such clearance or approval is not necessary. This test is used for clinical purposes. It should not be regarded as investigational or for research use. [facility] CenterPrepare Packed RBC (in units), 1 Units 2023-02-05 05:44:22 Test Item Value Reference Range Interpretation Comments Cross Match Result Compatible (test code = 4409) ISBT Blood Type Code 5100 (test code = 293852) Unit Blood Type (test O Pos code = 4410) Unit Number (test [id number] code = 4411) Blood Expiration Date & Time (test code = 055361) Status Information Issued (test code = 4412) Product Red Blood Cells Identification (test code = 4413) Product Code (test R5321A87 Performed at [facility] code = 4414) Laboratory Services - [facility] Blood [address] [place] [address] s [id number] Free: [phone] A No. [id number] [facility] Center[facility] Packed RBC (in units), 1 Units 2023-02-05 01:05:57 Test Item Value Reference Range Interpretation Comments Cross Match Result Compatible (test code = 4409) ISBT Blood Type Code 5100 (test code = 804744) Unit Blood Type (test O Pos code = 4410) Unit Number (test [id number] code = 4411) Blood Expiration Date 317738390251 & Time (test code = 368635) Status Information Returned from (test code = 4412) Issue Product Red Blood Cells Identification (test code = 4413) Product Code (test S4978Z19 Performed at code = 4414) [facility] Laboratory Services - [facility] Blood [address] [place] [address]Czkc Free: [phone] A No. [id number] [facility] CenterMYCOBACTERIUM TUBERCULOSIS COMPLEX PCR 2023-02-04 18:05:05 Test Item Value Reference Range Interpretation Comments Mycobacterium Negative Negative tuberculosis DNA (test code = 94149-6) JOHNNY (test code = JOHNNY) This is a qualitative PCR assay used for the detection of Mycobacterium tuberculosis complex (MTB-complex) DNA and possible rifampin resistance associated with a mutation in the rpoB gene. ?Its intended use is on specimens from patients for whom there is clinical suspicion of tuberculosis and have not received three or more days of therapy. ? This assay is not indicated for use on patients being treated with antituberculosis drugs either to determine bacteriologic cure or to monitor response to therapy. Because the detection of MTB-complex is dependent on the number of organisms present in the sample, accurate results are dependent on proper specimen collection, handling, and storage. A negative Mycobacterium tuberculosis DNA result indicates that the MTB-complex target was not detected. ?A negative result does not exclude the possibility of isolating MTB-complex. A positive Mycobacterium tuberculosis DNA result indicates the MTB-complex target was detected. ?A positive result does not necessarily indicate the presence of viable organism. An indeterminant Mycobacterium tuberculosis DNA result indicates the presence or absence of MTB-complex cannot be determined. A negative rifampin resistant result indicates that a mutation in the rpoB gene was not detected. A positive rifampin resistant result indicates that a mutation in the rpoB gene was detected indicating possible resistance (see culture susceptibility for confirmation). An indeterminant rifampin resistant result indicates that the presence or absence of a mutation in the rpoB gene cannot be determined. Method performance specifications have been established for these specimen types: sputum, bronchial washing/lavage, tissue, and CSF. This assay is used in conjunction with an AFB culture. ?See culture result for additional information. Lab Interpretation Normal (test code = 37806-7) [facility] CenterBODY FLUID MANUAL [id number] 15:23:04 Test Item Value Reference Range Interpretation Comments BF SEGS% (test 4 % code = 07103-6) BF LYMPHS% (test 35 % code = 39620-9) BF MACROPHAGE% 48 % (test code = 64766-0) BF MESOS% (test 12 % code = 67326-2) BF OTHR CELLS% 1 % Atypical cell (test code = 6709579860) BF #CELLS CNTD 100 cells/uL (test code = 3764162449) JOHNNY (test code = Atypical cells seen. JOHNNY) Correlate with Cytology results if available. If not, recommend ordering Cytology testing. ?Reviewed by David Rodriguez M.D., Director of HEMATOPATHOLOGY. [facility] IMMUNODEFICIENCY VIRUS 1 (HIV-1) BY QUANTITATIVE [id number] 20:53:27 Test Item Value Reference Range Interpretation Comments HIV-1 Quantitative 5702059 Not Detected H NAAT - copies/mL (test Copies/mL code = 19643-7) HIV-1 Quantitative Detected Not Detected A Interpretation (test code = 1114913304) JOHNNY (test code = JOHNNY) The Aptima HIV-1 Quant assay is an FDA-approved nucleic acid amplification test (NAAT) for the quantitation of human immunodeficiency virus type 1 (HIV-1) RNA in human plasma from HIV-1 infected individuals. ?It is intended for use as an aid in monitoring the effects of antiretroviral treatment. ?It is not approved for use as a donor screening test for HIV-1 or as a diagnostic test to confirm the presence of HIV-1 infection. The quantitative range of this assay is 1.47 - 7.00 log copies/mL or 30 - 10,000,000 copies/mL. An interpretation of "Not Detected" does not rule out the presence of inhibitors in the patient specimen or HIV-1 RNA concentration below the level of detection of the test. ?Care should be taken when interpreting any single viral load determination. Detected, not Quantifiable: HIV-1 RNA detected, but at a level below 30 copies/mL (1.47 log copies/mL). ?HIV-1 RNA concentration is below the lower limit of quantitation of the assay. Indeterminate: Error indicated in the generation of the result. ?Please submit a new specimen for repeat testing if clinically indicated. Lab Interpretation Abnormal (test code = 29437-2) [facility] CenterALBUMIN BODY [id number] 20:02:59 Test Item Value Reference Range Interpretation Comments ALBUMIN BF (test code 650.0 mg/dL = 6552032864) JOHNNY (test code = JOHNNY) Result interpreted relative to the serum concentration. ? [facility] CenterTotal Protein Body [id number] 15:37:25 Test Item Value Reference Range Interpretation Comments T.PROT BF (test 3000.0 mg/dL code = 7012253977) UNSPUN BODY FLUID Yellow COLOR (test code = 3525981728) UNSPUN BODY FLUID Slightly Cloudy CLARITY (test code = 0153781090) SPUN BODY FLUID Yellow COLOR (test code = 2009601336) SPUN BODY FLUID Slightly Cloudy CLARITY (test code = 9528723789) Sediment (test code The sediment volume is 0.1 = 8120480715) mLs of the total fluid volume of 5 mLs and its color is red. JOHNNY (test code = Test developed and JOHNNY) characteristics determined by [facility] Laboratory Services. [facility] CenterBODY FLUID DIRECT [id number] 12:04:11 Test Item Value Reference Range Interpretation Comments BF COLOR (test Yellow code = 1442086261) TURBIDITY (test Slightly Turbid code = 4179264885) BF WBC Count 503 See_Comment [Automated (test code = message] The 5862218403) system which generated this result transmitted reference range : /?L. The reference range was not used to interpret this result as normal/abnormal . BF RBC Count See_Comment [Automated (test code = message] The 4454635193) system which generated this result transmitted reference range : /?L. The reference range was not used to interpret this result as normal/abnormal . JOHNNY (test code = The reference range JOHNNY) and other method performance specifications have not been established for this body fluid. ?The test results must be integrated into the clinical context for interpretation. [facility] CenterComprehensive Metabolic Panel (23357) 2023-02-02 11:11:38 Test Item Value Reference Range Interpretation Comments NA (test code = 134 mmol/L 135-145 L 2644359285) K (test code = 3.4 mmol/L 3.5-5.0 L 1856940602) CL (test code = 115 mmol/L 98-108 H 7527820674) CO2 TOTAL (test code = 11 mmol/L 23-31 L 0677031036) AGAP (test code = 8 2-16 9067950428) BUN (test code = 11 mg/dL 7-23 9033590979) GLUCOSE (test code = 58 mg/dL 70-110 L 6081256602) CREATININE (test code = 1.14 mg/dL 0.60-1.25 2715150990) TOTAL BILI (test code = 1.6 mg/dL 0.1-1.1 H 3960173242) CALCIUM (test code = 6.7 mg/dL 8.6-10.6 L 9282972931) T PROTEIN (test code = 7.9 g/dL 6.3-8.2 5821749708) ALBUMIN (test code = 2.2 g/dL 3.5-5.0 L 4834882795) ALK PHOS (test code = 183 U/L 34-122 H 0354903794) ALTv (test code = 26 U/L 5-50 1742-6) AST(SGOT) (test code = 63 U/L 13-40 H 7429958744) eGFR (test code = 67.5 mL/min/1.73m2 0157853905) JOHNNY (test code = JOHNNY) Association of Glomerular Filtration Rate (GFR) and Staging of Kidney Disease* + --+ --+ ------+| GFR (mL/min/1.73 m2) ?| With Kidney Damage ?| ?Without Kidney Damage+ --------+ --------+ +| ?>90 ?| ?Stage one ?| ? Normal ?+ ---+ ---+ -------+| ?60-89 ?| ?Stage two ?| ? Decreased GFR ? + --+ --+ ------+| ?30-59 ?| ?Stage three ?| ? Stage three ? + --+ --+ ------+| ?15-29 ?| ?Stage four ? | ? Stage four ?+ ---+ ---+ -------+| ?<15 (or dialysis) ? ?| ?Stage five ? | ? Stage five ?+ ---+ ---+ -------+ *Each stage assumes the associated GFR level has been in effect for at least three months. ?Stages 1 to 5, with or without kidney disease, indicate chronic kidney disease. Notes: Determination of stages one and two (with eGFR >59mL/min/1.73 m2) requires estimation of kidney damage for at least three months as defined by structural or functional abnormalities of the kidney, manifested by either:Pathological abnormalities or Markers of kidney damage (including abnormalities in the composition of the blood or urine or abnormalities in imaging tests). Lab Interpretation Abnormal (test code = 66357-0) [facility] CenterFIBRINOGEN2023-06-24 10:55:08 Test Item Value Reference Range Interpretation Comments Fibrinogen (test code = 2527486757) 63 mg/dL 167-453 LL Lab Interpretation (test code = Abnormal 45822-9) [facility] WITH [id number] 03:09:27 Test Item Value Reference Range Interpretation Comments WBC (test code = 1.78 See_Comment LL [Automated 3990-2) message] The sy stem which generated this result transmitted reference range : 4.20 - 10.70 10*3/?L. The reference range was not used to interpret this result as normal/abnormal . RBC (test code = 2.27 See_Comment L [Automated 629-8) message] The sy stem which generated this result transmitted reference range : 4.26 - 5.52 10*6/?L. The reference range was not used to interpret this result as normal/abnormal . HGB (test code = 7.6 g/dL 12.2-16.4 L 718-7) HCT (test code = 22.3 % 38.4-49.3 L 4544-3) MCV (test code = 98.2 fL 81.7-95.6 H 787-2) MCH (test code = 33.5 pg 26.1-32.7 H 785-6) MCHC (test code = 34.1 g/dL 31.2-35.0 786-4) RDW-SD (test code = 71.6 fL 38.5-51.6 H 60708-9) RDW-CV (test code = 20.0 % 12.1-15.4 H 788-0) PLT (test code = 35 See_Comment LL [Automated 777-3) message] The sy stem which generated this result transmitted reference range : 150 - 328 10*3/ ?L. The reference r isai was not used to interpret this result as normal/abnormal . MPV (test code = 12.5 fL 9.8-13.0 87991-2) IPF % (test code = 5.6 % 1.2-10.7 Platelet count 4638350289) measured by fluorescence method. NRBC/100 WBC (test 0.0 See_Comment [Automat ed code = 2817189504) message] The system which generated this result transmitted reference range : 0.0 - 10.0 /100 WBCs. The refer ence range was not u sed to interpret th is result as normal/abnormal . NRBC x10^3 (test code See_Comment [Auto mated = 6148035877) message] The s ystem which generated this result transmitted reference range : 10*3/?L. The reference range was not used to interpret this result as normal/abnormal . GRAN MAT (NEUT) % 53.9 % (test code = 770-8) IMM GRAN % (test code 9.60 % = 8098296726) LYMPH % (test code = 20.2 % 736-9) MONO % (test code = 12.9 % 5905-5) EOS % (test code = 2.8 % 713-8) BASO % (test code = 0.6 % 706-2) GRAN MAT x10^3(ANC) 0.96 10*3/uL 1.99-6.95 L (test code = 8086649947) IMM GRAN x10^3 (test 0.17 10*3/uL 0.00-0.06 H code = 6818930707) LYMPH x10^3 (test code 0.36 10*3/uL 1.09-3.23 L = 731-0) MONO x10^3 (test code 0.23 10*3/uL 0.36-1.02 L = 742-7) EOS x10^3 (test code = 0.05 10*3/uL 0.06-0.53 L 711-2) BASO x10^3 (test code 0.01-0.09 = 704-7) FRANCISCO CELLS (test code 2+ See_Comment A [Auto mated = 0766-9) message] The sy stem which generated this result transmitted reference range : (none). The reference range was not used to interpret this result as normal/abnormal . POLYCHROMASIA (test 2+ See_Comment [Automa robert code = 96725-6) message] The system which generated this result transmitted reference range : 2+. The referen ce range was not u sed to interpret th is result as normal/abnormal . ROULEAUX (test code = Present See_Comment A [Auto mated 6299-4) message] The sy stem which generated this result transmitted reference range : (none). The reference range was not used to interpret this result as normal/abnormal . SCHISTOCYTES (test 1+ A code = 800-3) Lab Interpretation Abnormal (test code = 34997-6) [facility] CenterN-TERMINAL [id number] 02:58:33 Test Item Value Reference Range Interpretation Comments NT-proBNP (test code = 1540 pg/mL <=125 H 5321698822) JOHNNY (test code = JOHNNY) Biotin has been reported to cause a negative bias, interpret results relative to patient's use of biotin. Lab Interpretation (test Abnormal code = 90533-7) [facility] CenterTROPONIN [id number] 02:33:10 Test Item Value Reference Range Interpretation Comments TROPONIN I (test code = 0.026 ng/mL <=0.034 3947073850) JOHNNY (test code = JOHNNY) Reference (Normal) Range (defined by the 99th percentile reference limit): <= 0.034 ng/mL Note: Cardiac troponin begins to rise 3-4 hours after the onset of ischemia. Repeat in 4-6 hours if the sample was drawn within 3-4 hours of the onset of the symptom and found normal. Diagnosis of myocardial injury is made with acute changes in cTn concentrations with at least one serial sample above the 99th percentile upper reference limit (URL), taken together with the patient's clinical presentation. Biotin has been reported to cause a negative bias, interpret results relative to patient's use of biotin. Lab Interpretation Normal (test code = 08267-4) [facility] CenterACTIVATED PARTIAL THRMPLAS [id number] 02:28:51 Test Item Value Reference Range Interpretation Comments APTT Patient (test 52 See_Comment H [Automat ed code = 3173-2) message] The system which generated this result transmitted reference range : 23 - 38 Seconds . The reference range was not used to interpr et this result as normal/abnormal . JOHNNY (test code = JOHNNY) The [facility] patient population mean normal value for aPTT is 30 seconds. Lab Interpretation Abnormal (test code = 67672-1) [facility] CenterPROTHROMBIN TIME / [id number] 02:26:35 Test Item Value Reference Range Interpretation Comments PROTIME PATIENT (test 19.1 See_Comment H [Auto mated message] code = 5964-2) The system wh ich generated this result transmitted ref erence range: 12.0 - 1 4.7 Seconds. The reference range was not used to int erpret this result as normal/abnormal . INR (test code = 6301-6) 1.7 Nor mal INR <1.1; Warfarin Therap eutic range 2.0 to 3. 0 or 2.5 to 3.5, dep ending upon the indica tions. Lab Interpretation (test Abnormal code = 42129-2) [facility] CenterCOMP. METABOLIC PANEL (42934)2023-02-02 02:21:31 Test Item Value Reference Range Interpretation Comments NA (test code = 139 mmol/L 135-145 3776890547) K (test code = 3.2 mmol/L 3.5-5.0 L 3718701195) CL (test code = 114 mmol/L 98-108 H 1844758785) CO2 TOTAL (test code = 19 mmol/L 23-31 L 3892269309) AGAP (test code = 6 2-16 3591196032) BUN (test code = 10 mg/dL 7-23 9178791661) GLUCOSE (test code = 94 mg/dL 70-110 4034244400) CREATININE (test code = 1.00 mg/dL 0.60-1.25 8605333014) TOTAL BILI (test code = 1.2 mg/dL 0.1-1.1 H 5051641551) CALCIUM (test code = 7.0 mg/dL 8.6-10.6 L 0843445875) T PROTEIN (test code = 8.8 g/dL 6.3-8.2 H 3942969971) ALBUMIN (test code = 2.4 g/dL 3.5-5.0 L 8355875725) ALK PHOS (test code = 208 U/L 34-122 H 8446796485) ALTv (test code = 26 U/L 5-50 1742-6) AST(SGOT) (test code = 65 U/L 13-40 H 0883367751) eGFR (test code = 78.5 mL/min/1.73m2 1670599755) JOHNNY (test code = JOHNNY) Association of Glomerular Filtration Rate (GFR) and Staging of Kidney Disease* + --+ --+ ------+| GFR (mL/min/1.73 m2) ?| With Kidney Damage ?| ?Without Kidney Damage+ --------+ --------+ +| ?>90 ?| ?Stage one ?| ? Normal ?+ ---+ ---+ -------+| ?60-89 ?| ?Stage two ?| ? Decreased GFR ? + --+ --+ ------+| ?30-59 ?| ?Stage three ?| ? Stage three ? + --+ --+ ------+| ?15-29 ?| ?Stage four ? | ? Stage four ?+ ---+ ---+ -------+| ?<15 (or dialysis) ? ?| ?Stage five ? | ? Stage five ?+ ---+ ---+ -------+ *Each stage assumes the associated GFR level has been in effect for at least three months. ?Stages 1 to 5, with or without kidney disease, indicate chronic kidney disease. Notes: Determination of stages one and two (with eGFR >59mL/min/1.73 m2) requires estimation of kidney damage for at least three months as defined by structural or functional abnormalities of the kidney, manifested by either:Pathological abnormalities or Markers of kidney damage (including abnormalities in the composition of the blood or urine or abnormalities in imaging tests). Lab Interpretation Abnormal (test code = 01632-4) [facility] Test Item Value Reference Range Interpretation Comments LIPASE (test code = 0224108377) 352 U/L 0-220 H Lab Interpretation (test code = Abnormal 17285-3) [facility] Plas TALYA [id number] 14:22:51 Test Item Value Reference Range Interpretation Comments HIV1 RNA SerPl Ql TALYA+probe DETECTED Not detected A (test code = 36066-9) HIV1 RNA # Plas TALYA DL=20 (test 471 copies/mL <=0 H code = 47865-8) HIV1 RNA SerPl TALYA DL=1.7-Log# 2.67 Log10 <=0.00 H (test code = 13785-0) This test utilizes FDA cleared SAAD AmpliPrep/SAAD TaqMan HIV-1 test 2.0 from [employer] which allows quantitation of viral loads between 20 and 10,000,000 copies/mL of plasma. Whenthe result is positive but less than 20 copies/mL of HIV-1 RNA, the test result will be reported as detected but less than 20 copies/mL". The SAAD AmpliPrep/ SAAD TaqManHIV-1 test, version 2.0 is notintended for use as a screening test for the presence of HIV-1 RNA in blood or a diagnostic test to confirm the presence of HIV infection. This test is intended for use as an aid in the management of patients with HIV-1 infection. HHSCD4+CD8+ Cells NFr [id number] 14:03:47 Test Item Value Reference Range Interpretation Comments T-cell CD4 subset pnl Bld (test 50 cells/uL 431-1623 L code = 67386-2) CD3+CD4+ Cells/CD3+CD8+ Cells Bld 0.30 ratio 0.86-2.05 L (test code = 10374-0) CD4+CD8+ Cells NFr Bld (test code 20.3 % 25.0-56.0 L = 87145-0) HHSHIV1 RNA # Plas TALYA [id number] 17:36:38 Test Item Value Reference Range Interpretation Comments HIV1 RNA SerPl Ql TALYA+probe DETECTED Not detected A (test code = 92301-4) HIV1 RNA # Plas TALYA DL=20 106843 copies/mL <=0 H (test code = 00770-7) HIV1 RNA SerPl TALYA 5.03 Log10 <=0.00 H DL=1.7-Log# (test code = 08551-3) This test utilizes FDA cleared SAAD AmpliPrep/SAAD TaqMan HIV-1 test 2.0 from [employer] which allows quantitation of viral loads between 20 and 10,000,000 copies/mL of plasma. Whenthe result is positive but less than 20 copies/mL of HIV-1 RNA, the test result will be reported as detected but less than 20 copies/mL". The SAAD AmpliPrep/ SAAD TaqManHIV-1 test, version 2.0 is notintended for use as a screening test for the presence of HIV-1 RNA in blood or a diagnostic test to confirm the presence of HIV infection. This test is intended for use as an aid in the management of patients with HIV-1 infection. PCOZKEP-YyC-8 ORF1ab Resp Ql TALYA+[id number] 02:33:31 Test Item Value Reference Range Interpretation Comments Hospitalized? (test Yes code = 70829-6) ICU? (test code = No 17727-2) Symptomatic as No defined by CDC? (test code = 08490-7) Employed in No Healthcare? (test code = 94114-0) Resident in a No congregate care setting (including nursing homes, residential care for people with intellectual and developmental disabilities, psychiatric treatment facilities, group homes, board and care homes, homeless alf, foster care or other): (test code = 59401-8) SARS-CoV-2 ORF1ab NOT DETECTED Not Detected INTERPRETA TION: No Resp Ql TALYA+probe detectable levels of (test code = SARS-CoV-2 44797-9) Coronavirus (COVID-19) were present in this patient's sampl e by this test. A no t detected result does not exclude the possibility of active infection with this virus due to ot her factors that ma y affect the resu lts such as a poorl y collected sampl e, viral titers be low the limit of detection of th e assay, and the infrequent possibility of inhibitors in t he sample. This re sult should be inter preted in conjunction with clinical, radiographic, a nd other laborator y findings and sh ould not be used as the sole indicator of active infectio n with SARS-CoV-2 Coronavirus (COVID-19).COMM ENT: This Hologic Ap rogelio SARS-CoV-2 mole cular diagnostic assa y utilizes Internal Wholesaler Mediated Amplification ( TMA) technology to r apidly detect the SARS -CoV-2 (COVID-19) viru s from respiratory selvin ples. In accordance with\\XC2A0\\the FDA's guidance docume nt "Policy for Diagnostic Test s for Coronavirus Disease-2019 [facility] th Emergency", gary s test was developed, and its performance characteristics were verified by the [facility] molecular diagn ostics laboratory and is authorized for clinical diagno stic use. \\XC2A0\\Thi s laboratory is certified under the Clinical Labora tory Improvement Amendments (CLI A) as qualified to pe rform high complexity clinical labora tory testing. HHSCD4+CD8+ Cells NFr [id number] 11:21:38 Test Item Value Reference Range Interpretation Comments T-cell CD4 subset pnl Bld (test 6 cells/uL 431-1623 L code = 65290-7) CD3+CD4+ Cells/CD3+CD8+ Cells Bld 0.05 ratio 0.86-2.05 L (test code = 86216-0) CD4+CD8+ Cells NFr Bld (test code 3.9 % 25.0-56.0 L = 55721-6) SDVZDVB-YqE-8 RNA Resp Ql TALYA+oewwb3534-50-09 05:54:18 Test Item Value Reference Range Interpretation Comments Hospitalized? (test No code = 74061-2) ICU? (test code = No 92522-1) Symptomatic as defined No by CDC? (test code = 95789-4) Employed in No Healthcare? (test code = 14950-7) Resident in a No congregate care setting (including nursing homes, residential care for people with intellectual and developmental disabilities, psychiatric treatment facilities, group homes, board and care homes, homeless alf, foster care or other): (test code = 14915-8) SARS-CoV-2 RNA Resp Ql NOT DETECTED Not Detected INTER PRETATION: No TALYA+probe (test code = detec table levels 89620-8) of SARS-CoV-2 Coronavirus (COVID-19) were present in this patient's sampl e by this test. A no t detected result does not exclud e the possibility of active infectio n with this virus due to other factor s that may affect the results such as a poorly collecte d sample, viral titers below th e limit of detect ion of the assay, a nd the infrequent possibility of inhibitors in t he sample. This re sult should be interpreted in conjunction wit h clinical, radiographic, a nd other laborator y findings and sh ould not be used as the sole indicator of active infectio n with SARS-CoV-2 Coronavirus (COVID-19). COMMENT: This [employer] Xpert Xpress SARS-CoV-2 real-time PCR test was developed, and its performance characteristics determined by the [facility] molecular diagnostic Laboratory and is acceptablefor patient testing. It has been approved for patient testing by the FDA under the Emergency Use Auth orization pathway. This laboratory is certified under federal CLIA regulations to perform this type of high complexity testing.HHSMicroscopic Examination (See below:)2022-08-30 11:12:00 Test Item Value Reference Range Interpretation Comments WBC (test code = 0-5 /hpf 0-5 Field Project Manager luis e: [id number]) Anthony Colon MDFacility Phon e: RBC (test code = 3-10 /hpf 0-2 Field Project Manager luis e: [id number]) Anthony Colon MDFacility Phon e: Epithelial Cells None seen /hpf 0-10 Medical D irector: (non renal) (test Anthony Yanez ue, code = 155765) MDFacility Ph one: Casts (test code = None seen /lpf None seen Block Trader: 930856) Anthony Colon MDFacility Phon e: Bacteria (test code None seen None seen/Few Block Trader: = 555012) Anthony Colon MDFacility Phon e: UA/M w/rflx Culture, [id number] 11:12:00 Test Item Value Reference Range Interpretation Comments Specific [place] 1.022 1.005-1.030 Field Project Manager luis e: (test code = Anthony Colon, 094566) MDFacility Phon e: pH (test code = 5.5 5.0-7.5 Medical Dire ctor: [id number]) Anthony Colon, MDFacility Phon e: Urine-Color (test Yellow Yellow Medical Di ulysses: code = 379199) Anthony Yanezue, MDFacility Phon e: Appearance (test Clear Clear Field Project Manager luis e: code = 171998) Anthony Colon, MDFacility Phon e: WBC Esterase (test Negative Negative Medical D irector: code = 564051) Anthony Montoyadomimanav, MDFacility Phon e: Protein (test code Negative Negative/Trace Block Trader: = 558889) Anthony Colon, MDFacility Phon e: Glucose (test code Negative Negative Medical D irector: = 499592) Anthony Montoyakue, MDFacility Phon e: Ketones (test code Negative Negative Medical D irector: = 396986) Anthony Colon, MDFacility Phon e: Occult Blood (test Negative Negative Medical D irector: code = 410178) Anthony Montoyakue, MDFacility Phon e: Bilirubin (test Negative Negative Medical Dire ctor: code = 169801) Anthony Montoyakue, MDFacility Phon e: Urobilinogen,Semi- 1.0 mg/dL 0.2-1.0 Medical D irector: Qn (test code = Anthony Colon , 727339) MDFacility Phon e: Nitrite, Urine Negative Negative Medical Direc tor: (test code = Anthony Colon, 733274) MDFacility Phon e: Microscopic Microscopic Medical Directo r: Examination (test follows if Anthony josee, code = 572555) indicated. MDFacility Ph one: Microscopic See comment Microscopic was Examination (test indicated and was code = 867219) performed.Med ical Director: Eugenio Montes ty Urinalysis Reflex See comment This speci men will (test code = not reflex to a 354594) Urine Culture.Block Trader: Eugenio Montes ty SRC:URINECD4/CD8 Ratio [id number] 07:09:00 Test Item Value Reference Range Interpretation Comments Absolute CD 4 22 /uL 359-1519 Medical Direct or: [place] (test code = Anthony fontainemanav, 893594) MDFacility Phon e: % CD 4 Pos. Lymph. 3.2 % 30.8-58.5 Medical D irector: (test code = Anthony Colon, 097078) MDFacility Phon e: Abs. CD 8 624 /uL 109-897 Medical Directo r: Suppressor (test Anthony Tillman e, code = 408486) MDFacility Ph one: % CD 8 Pos. Lymph. 89.1 % 12.0-35.5 Medical D irector: (test code = Anthony Colon, 538053) MDFacility Phon e: CD4/CD8 Ratio (test 0.04 0.92-3.72 Block Trader: code = 400700) Anthony ColonMDFacility Phon e: WBC (test code = 2.0 x10E3/uL 3.4-10.8 Field Project Manager luis e: 152386) Anthony MontoyadomimanavMDFacility Phon e: RBC (test code = 2.64 x10E6/uL 4.14-5.80 Medical Di ulysses: 139006) Anthony Montoyadomimanav MDFacility Phon e: Hemoglobin (test 8.4 g/dL 13.0-17.7 Field Project Manager luis e: code = 468339) Anthony Montoyacarolyn MDFacility Phon e: Hematocrit (test 24.9 % 37.5-51.0 Field Project Manager luis e: code = 797595) Anthony Colon MDFacility Phon e: MCV (test code = 94 fL 79-97 Field Project Manager luis e: 296984) Anthony Montoyacarolyn MDFacility Phon e: MCH (test code = 31.8 pg 26.6-33.0 Field Project Manager luis e: 756364) Anthony Montoyacarolyn MDFacility Phon e: MCHC (test code = 33.7 g/dL 31.5-35.7 Medical Di ulysses: 226449) Anthony Montoyacarolyn MDFacility Phon e: RDW (test code = 15.1 % 11.6-15.4 Field Project Manager luis e: 945249) Anthony Montoyacarolyn MDFacility Phon e: Platelets (test 70 x10E3/uL 150-450 Platelet cou nt code = 765884) verified by examination of peripheral bloo d smear.Decreased .M edical Director : Anthonyluna Colon MDFacility Phon e: Neutrophils (test 36 % Not Estab. Medical Di ulysses: code = 014890) Anthony Knight Darlene MDFacility Phon e: Lymphs (test code = 36 % Not Estab. Block Trader: 523365) Anthony Knight Darlene MDFacility Phon e: Monocytes (test 13 % Not Estab. Medical Dire ctor: code = 082487) Anthony L Eskue, MDFacility Phon e: Eos (test code = 13 % Not Estab. Field Project Manager luis e: [id number]) Anthony Colon, MDFacility Phon e: Basos (test code = 1 % Not Estab. Medical D irector: 764685) Anthony Yanezue, MDFacility Phon e: Neutrophils 0.8 x10E3/uL 1.4-7.0 Medical Directo r: (Absolute) (test Anthony Montoyaku e, code = 920163) MDFacility Ph one: Lymphs (Absolute) 0.7 x10E3/uL 0.7-3.1 Medical Di ulysses: (test code = Anthony Yanezue, 674777) MDFacility Phon e: Monocytes(Absolute) 0.3 x10E3/uL 0.1-0.9 Block Trader: (test code = Anthony Colon, 890918) MDFacility Phon e: Eos (Absolute) 0.3 x10E3/uL 0.0-0.4 Medical Direc tor: (test code = Anthony Yanezue, 209941) MDFacility Phon e: Baso (Absolute) 0.0 x10E3/uL 0.0-0.2 Medical Dire ctor: (test code = Anthony Yanezue, 743863) MDFacility Phon e: Immature 1 % Not Estab. Medical Directo r: Granulocytes (test Anthony pereae, code = 971928) MDFacility Ph one: Immature Grans 0.0 x10E3/uL 0.0-0.1 Medical Direc tor: (Abs) (test code = Anthony pereae, 078898) MDFacility Phon e: Hematology Note: Verified by Medical Di ulysses: Comments: (test microscopic Anthony Yanezue , code = 821844) examination. MDFacility Ph one: Patient FastingComp. Metabolic Panel (2022-07-21 07:09:00 Test Item Value Reference Range Interpretation Comments Glucose (test code = 85 mg/dL 70-99 Block Trader: 717240) Anthony Colon, MDFacility Phon e: BUN (test code = 11 mg/dL 6-24 Field Project Manager luis e: 868690) Anthony Colon, MDFacility Phon e: Creatinine (test code 0.78 mg/dL 0.76-1.27 [facility] l Director: = 458485) Anthony Colon MDFacility Phon e: eGFR (test code = 108 >59 Medical Di ulysses: 755594) mL/min/1.73 Anthony Colon, MDFacility Phon e: BUN/Creatinine Ratio 14 9-20 Block Trader: (test code = 160568) Anthony Colon, MDFacility Phon e: Sodium (test code = 136 mmol/L 134-144 Block Trader: 121004) Anthony Colon, MDFacility Phon e: Potassium (test code 3.7 mmol/L 3.5-5.2 Block Trader: = 641278) Anthony Colon, MDFacility Phon e: Chloride (test code = 106 mmol/L 96-106 [facility] 635264[facility] Anthony Colon, MDFacility Phon e: Carbon Dioxide, Total 20 mmol/L 20-29 Medica l Director: (test code = 976601) Anthony Colon, MDFacility Phon e: Calcium (test code = 7.8 mg/dL 8.7-10.2 Block Trader: 691293) Anthony Montoyakmanav, MDFacility Phon e: Protein, Total (test 7.6 g/dL 6.0-8.5 Block Trader: code = 090065) Anthony Colon MDFacility Phon e: Albumin (test code = 2.6 g/dL 3.8-4.9 Block Trader: 951715) Anthony Colon, MDFacility Phon e: Globulin, Total (test 5.0 g/dL 1.5-4.5 [facility] code = 589955) Anthony Colon, MDFacility Phon e: A/G Ratio (test code 0.5 1.2-2.2 Block Trader: = 132103) Anthony Colon, MDFacility Phon e: Bilirubin, Total 0.8 mg/dL 0.0-1.2 Field Project Manager luis e: (test code = 920116) Anthony Colon, MDFacility Phon e: Alkaline Phosphatase 126 IU/L 44-121 Block Trader: (test code = 112119) Anthony Colon, MDFacility Phon e: AST (SGOT) (test code 63 IU/L 0-[address] [facility] Director: = 927909) Anthony Colon, MDFacility Phon e: ALT (SGPT) (test code 29 IU/L 0-[address] [facility] Director: = 173629) Anthony Colon, MDFacility Phon e: Patient FastingRNA, Real Time PCR (Non-Graph)2022-07-21 07:09:00 Test Item Value Reference Range Interpretation Comments HIV-1 RNA by PCR 904962 copies/mL .The r eportable (test code = range for this assay 346953) is 20 to 10,000,000copie s HIV-1 RNA/mL. .Medical Direct or: Jose Francisco Harris Arlyn, MDFacility Phon e: log10 HIV-1 RNA 5.736 Medical Dire ctor: (test code = dpw20uorc/mL Jose Francisco Stdodard, 073645) Deborah Phon e: Patient [id number] 07:09:00 Test Item Value Reference Range Interpretation Comments RPR (test code = Reactive Non Reactive Field Project Manager luis e: Anthony Knight 753642) Eugenio Colon ty Patient FastingFTAAbs-RPR Qn (Reactive)2022-07-21 07:09:00 Test Item Value Reference Range Interpretation Comments Rapid Plasma See comment See_Comment Please Note: Th is test Reagin, Quant does not meet current (test code = guidelines fors creening 307393) and diagnosis o f syphilis. This test is intended forfol lowing treatment respo nse in patients being treated forsyphilis inf ection. To screen for syph ilis infection, a reflexcascade t hat includes both R WI and a treponema-speci fic assayshould be utilized, such as Trepone ma pallidum (Syphilis)Scree brittney Tripp (419374 ) or Rapid Plasma Reagin ( RPR) TestWith Reflex to Quantitative RP R and Confirmatory Treponemapallid um Antibodies (737936).Medica l Director: Deborah Montes Phon e: [Autom ated message] The sy stem which generated this result transmitted ref erence range: NonRea<1 :1. The reference range was not used to interpr et this result as normal/abnormal . T pallidum Ab Reactive . Non Reactive Medical Direct or: Elbert (FTA-Ab) (test CORKY Cleary acility code = 587687) Patient FastingTransthoracic echo (TTE)2022-06-24 17:46:39 Test Item Value Reference Range Interpretation Comments Height (test code = in 7653800529) Weight (test code = lbs 7442352654) Systolic BP (test code = mmHg 3287746050) Diastolic BP (test code mmHg = 3860302143) Heart Rate (test code = bpm 5300385173) BSA (test code = 1.85 m2 2704932607) Ao root diam (test code 3.30 cm = 7532085612) Aortic root (test code = 3.3 cm 8035654219) Ao root annulus (test 3.3 cm code = 5242665019) LVOT diameter (test code 2.18 cm = 3095482248) LVOT area (test code = 3.70 cm2 4364668321) LVIDD (test code = 4.80 cm 8304874330) Left Ventricular End 106.3 mL Diastolic Volume by Teichholz Method (test code = 5650773) IVS (test code = 1.15 cm 8251255551) Interventricular Septum 1.15 cm Diastolic Thickness by 2D (test code = 3308394) LVPWD (test code = 1.15 cm 8488326869) PW (test code = 1.15 cm 0.6-1.1 5250185612) EF(Teich) (test code = 61.00 % 0063154937) LVIDS (test code = 3.20 cm 4063473005) Left Ventricular End 41.5 mL Systolic Volume by Teichholz Method (test code = 3176530) FS (test code = 33 % 9120749856) EF - 2D (test code = 61.00 % 57695600) LA size (test code = 3.9 cm 2573439270) TR Peak Darci (test code = 302.3 cm/s 8514575523) Triscuspid Valve mmHg Regurgitation Peak Gradient (test code = 3094296370) LAV(MOD-sp4) (test code 70.80 mL = 4691983187) MV Peak E Darci (test code 107.2 cm/s = 0583667373) MV stenosis pressure 1/2 54.9 ms time (test code = 6670854744) E wave decelartion time 0.18 s (test code = 4937559687) MV Peak A Darci (test code 88.1 cm/s = 5730138929) E/A ratio (test code = ratio 8451603192) MR max PG (test code = 64.60 mm[Hg] 3421154126) MR max darci (test code = 402.00 cm/s 2719724081) Mr max darci (test code = 402.0 m/s 1845125846) MV Prop V (test code = 50.60 cm/s 1683356383) MV E/e' septal (test 12.6 cm/s code = 4562862303) Tapse (test code = 2.16 cm 0552365724) LVOT stroke volume (test 74.40 cm3 code = 9331368947) LVOT peak darci (test code 106.7 cm/s = 4968627171) LVOT mn grad (test code mmHg = 8895729172) AV LVOT peak gradient mmHg (test code = 1579585765) LVOT peak VTI (test code 19.9 cm = 7324299584) LV V1 mean (test code = 73.30 cm/s 0665507732) Aortic valve mean 116.1 cm/s velocity (test code = 1277567210) Ao peak darci (test code = 159.9 cm/s 2887221895) Ao VTI (test code = 29.7 cm 0622148256) AV area by cont VTI 2.5 cm2 (test code = 3143346789) AV area peak darci (test 2.5 cm2 code = 7162391319) Ao max PG (test code = 10.20 mm[Hg] 2817148293) AV peak gradient (test mmHg code = 8371660024) AV valve area (test code 2.50 cm2 = 4405589126) AV mean gradient (test mmHg code = 2388242943) Radiology Study observation (narrative) (test code = 05222-5) JOHNNY (test code = JOHNNY) ?Left?Ventricle: Left ventricle size is normal. Normal wall thickness. Normal wall motion. Normal systolic function with a visually estimated EF of 60 - 65%. Indeterminate diastolic function. ?Right?Ventricle: Right ventricle size is normal. Normal systolic function. ?Tricuspid?Valve: Right ventricular systolic pressure is 40-45 mmHg. ?RA pressure is 5-10 mmHg. Left VentricleLeft ventricle size is normal. Normal wall thickness. Normal wall motion. Normal systolic function with a visually estimated EF of 60 - 65%. Indeterminate diastolic function.Right VentricleRight ventricle size is normal. Normal systolic function.Left AtriumLeft atrium size is normal.Right AtriumRight atrium size is normal. There is a prominent Eustachian valve.Mitral ValveMitral valve structure is normal. Mild transvalvular regurgitation.Tricusp id ValveTricuspid valve structure is normal. Trace transvalvular regurgitation. Right ventricular systolic pressure is 40-45 mmHg. RA pressure is 5-10 mmHg.Aortic ValveTricuspid. Mildly thickened cusps.Pulmonic ValvePulmonic valve is normal in structure and function.Ascending AortaNormal sized aorta.PericardiumThe pericardium is normal.Study DetailsStudy quality was adequate. A complete echocardiogram was performed using 2D, color flow Doppler and spectral Doppler. [facility] 1/2 AG-AB WITH [id number] 17:20:39 Test Item Value Reference Range Interpretation Comments HIV Semi-quantitative Reactive Negative A (test code = 09928-2) JOHNNY (test code = JOHNNY) This is a preliminary result. Specimen is presumptive reactive for anti-HIV-1, anti-HIV-2, or p24 antigen. Further testing for confirmation has been ordered.This is a preliminary result. Specimen is presumptive reactive for anti-HIV-1, anti-HIV-2, or p24 antigen. Further testing for confirmation has been ordered. Lab Interpretation (test Abnormal code = 12981-4) [facility] 1/2 AB SUPPLEMENTAL [id number] 17:20:39 Test Item Value Reference Range Interpretation Comments HIV Supplemental Positive Confirmatory Testing (test code = 9620415489) HIV-1 Ab Confirmation Positive (test code = 4413641504) HIV-2 Ab Confirmation Negative (test code = 8899497339) JOHNNY (test code = JOHNNY) Patient is confirmed to have HIV-1 infection. [facility] VENOUS BLOOD [id number] 17:06:53 Test Item Value Reference Range Interpretation Comments PH (test code = 7.32-7.42 2323068673) PCO2 SUSHILA (test code = See_Comment L [Auto mated message] 1083552680) The system [employer] generated this result transmitted ref erence range: 41 - 51 mmHg. The reference r isai was not used to interpret this result as normal/abnor mal. PO2 SUSHILA (test code = See_Comment H [Autom ated message] 0681212269) The system [employer] generated this result transmitted ref erence range: 25 - 40 mmHg. The reference r isai was not used to interpret this result as normal/abnor mal. HCO3 SUSHILA (test code = See_Comment L [Auto mated message] 6205770125) The system [employer] generated this result transmitted ref erence range: 24 - 28 mEq/L. The reference r isai was not used to interpret this result as normal/abnor mal. AC VBE(BEAKER) (test mEq/L code = 4796892042) Lab Interpretation (test Abnormal code = 57454-2) [facility] Test Item Value Reference Range Interpretation Comments FOLATE SER (test code = 11.3 ng/mL 3.0-20.0 8829930591) Lab Interpretation (test code = Normal 52592-7) [facility] B12, [id number] 02:52:04 Test Item Value Reference Range Interpretation Comments VIT B12 (test code = 339 pg/mL 240-930 1597875366) JOHNNY (test code = JOHNNY) Biotin has been reported to cause a positive bias, interpret results relative to patient's use of biotin. Lab Interpretation (test Normal code = 00314-1) [facility] CenterIRON [id number] 02:09:59 Test Item Value Reference Range Interpretation Comments IRON (test code = 9108404649) 63 ug/dL 50-160 TIBC (test code = 8417263728) 217 ug/dL 250-410 L % FE SAT (test code = 3819477804) 29 % 20-50 Lab Interpretation (test code = Abnormal 75905-7) [facility] CenterFERRITIN [id number] 02:00:41 Test Item Value Reference Range Interpretation Comments FERRITIN (test code = 488.0 ng/mL 18.0-464.0 H 9236058566) JOHNNY (test code = JOHNNY) Biotin has been reported to cause a negative bias, interpret results relative to patient's use of biotin. Lab Interpretation (test Abnormal code = 80803-3) [facility] [id number] 01:56:39 Test Item Value Reference Range Interpretation Comments TSH (test code = See_Comment Biotin has been 2076604395) reported to cau se a negative bias, interpret resul ts relative to pat ient's use of biotin. [Automated mess age] The system [employer] generated this result transmitted ref erence range: 0.45 - 4 .70 mIU/L. The refe rence range was not u sed to interpret this result as normal/abnor mal. Lab Interpretation (test Normal code = 69359-9) [facility] with [id number] 10:46:07 Test Item Value Reference Range Interpretation Comments WBC (test code = See_Comment [Automated 6690-2) message] The system which generated this result transmit robert reference range : 4.20 - 10.70 10*3/?L. The reference range was not used to interpret this result as normal/abnormal . RBC (test code = See_Comment L [Automated 789-8) message] The system which generated this result transmit robert reference range : 4.26 - 5.52 10*6/?L. The reference range was not used to interpret this result as normal/abnormal . HGB (test code = 7.9 g/dL 12.2-16.4 L 718-7) HCT (test code = 22.4 % 38.4-49.3 L 4544-3) MCV (test code = 97.4 fL 81.7-95.6 H 787-2) MCH (test code = 34.3 pg 26.1-32.7 H 785-6) MCHC (test code = 35.3 g/dL 31.2-35.0 H 786-4) RDW-SD (test code = 55.8 fL 38.5-51.6 H 92978-9) RDW-CV (test code = 15.9 % 12.1-15.4 H 788-0) PLT (test code = See_Comment L [Automated 777-3) message] The system which generated this result transmit robert reference range : 150 - 328 10*3/ ?L. The reference range was not u sed to interpret th is result as normal/abnormal . MPV (test code = 10.5 fL 9.8-13.0 97931-8) IPF % (test code = 3.5 % 1.2-10.7 Platelet count 6754291981) measured by fluorescence method. NRBC/100 WBC (test See_Comment [Automat ed code = 7289865255) message] The system which generated this result transmit robert reference range : 0.0 - 10.0 /100 WBCs. The reference range was not used to interpret this result as normal/abnormal . NRBC x10^3 (test code See_Comment [Auto mated = 6999765807) message] The system which generated this result transmit robert reference range : 10*3/?L. The reference range was not used to interpret this result as normal/abnormal . GRAN MAT (NEUT) % 86.6 % (test code = 770-8) IMM GRAN % (test code 3.30 % = 6195361776) LYMPH % (test code = 5.4 % 736-9) MONO % (test code = 4.1 % 5905-5) EOS % (test code = 0.2 % 713-8) BASO % (test code = 0.4 % 706-2) GRAN MAT x10^3(ANC) 4.48 10*3/uL 1.99-6.95 (test code = 4568649888) IMM GRAN x10^3 (test 0.17 10*3/uL 0.00-0.06 H code = 9520152489) LYMPH x10^3 (test 0.28 10*3/uL 1.09-3.23 L code = 731-0) MONO x10^3 (test code 0.21 10*3/uL 0.36-1.02 L = 742-7) EOS x10^3 (test code 0.06-0.53 L = 711-2) BASO x10^3 (test code 0.01-0.09 = 704-7) BANDS (test code = MARKED INCREASED A 5811786383) PLT ESTIMATE (test Decreased Normal A code = 9317-9) Lab Interpretation Abnormal (test code = 11782-9) [facility], [id number] 10:16:13 Test Item Value Reference Range Interpretation Comments AMMONIA (test code = 3444889964) 9-33 L Lab Interpretation (test code = Abnormal 81635-9) [facility] Metabolic Panel (NA, K, CL, CO2, Glucose, BUN, Creatinine, CA)2022-06-22 10:14:31 Test Item Value Reference Range Interpretation Comments NA (test code = 139 mmol/L 135-145 5512847234) K (test code = 4.3 mmol/L 3.5-5.0 1608493089) CL (test code = 115 mmol/L 98-108 H 2121561465) CO2 TOTAL (test code = 18 mmol/L 23-31 L 8722040483) AGAP (test code = 2-16 5466701060) BUN (test code = 22 mg/dL 7-23 0852079958) GLUCOSE (test code = 135 mg/dL 70-110 H 3743355033) CREATININE (test code = 1.01 mg/dL 0.60-1.25 1305882871) CALCIUM (test code = 7.7 mg/dL 8.6-10.6 L 1140219418) eGFR (test code = mL/min/1.73m2 3197131173) JOHNNY (test code = JOHNNY) Association of Glomerular Filtration Rate (GFR) and Staging of Kidney Disease* + --+ --+ ------+| GFR (mL/min/1.73 m2) ?| With Kidney Damage ?| ?Without Kidney Damage+ --------+ --------+ +| ?>90 ?| ?Stage one ?| ? Normal ?+ ---+ ---+ -------+| ?60-89 ?| ?Stage two ?| ? Decreased GFR ? + --+ --+ ------+| ?30-59 ?| ?Stage three ?| ? Stage three ? + --+ --+ ------+| ?15-29 ?| ?Stage four ? | ? Stage four ?+ ---+ ---+ -------+| ?<15 (or dialysis) ? ?| ?Stage five ? | ? Stage five ?+ ---+ ---+ -------+ *Each stage assumes the associated GFR level has been in effect for at least three months. ?Stages 1 to 5, with or without kidney disease, indicate chronic kidney disease. Notes: Determination of stages one and two (with eGFR >59mL/min/1.73 m2) requires estimation of kidney damage for at least three months as defined by structural or functional abnormalities of the kidney, manifested by either:Pathological abnormalities or Markers of kidney damage (including abnormalities in the composition of the blood or urine or abnormalities in imaging tests). Lab Interpretation Abnormal (test code = 55319-6) [facility] GLUCOSE (AUTOMATED)2022-06-22 09:58:02 Test Item Value Reference Range Interpretation Comments POCT GLU (test code = 0320641596) 142 mg/dL 70-110 H Lab Interpretation (test code = Abnormal 73031-1) [facility] WITH [id number] 20:43:01 Test Item Value Reference Range Interpretation Comments WBC (test code = See_Comment [Automated 6690-2) message] The system which generated this result transmit robert reference range : 4.20 - 10.70 10*3/?L. The reference range was not used to interpret this result as normal/abnormal . RBC (test code = See_Comment L [Automated 789-8) message] The system which generated this result transmit robert reference range : 4.26 - 5.52 10*6/?L. The reference range was not used to interpret this result as normal/abnormal . HGB (test code = 8.5 g/dL 12.2-16.4 L 718-7) HCT (test code = 24.4 % 38.4-49.3 L 4544-3) MCV (test code = 95.3 fL 81.7-95.6 787-2) MCH (test code = 33.2 pg 26.1-32.7 H 785-6) MCHC (test code = 34.8 g/dL 31.2-35.0 786-4) RDW-SD (test code = 52.7 fL 38.5-51.6 H 27966-7) RDW-CV (test code = 15.4 % 12.1-15.4 788-0) PLT (test code = See_Comment L [Automated 777-3) message] The system which generated this result transmit robert reference range : 150 - 328 10*3/ ?L. The reference range was not u sed to interpret th is result as normal/abnormal . MPV (test code = 11.2 fL 9.8-13.0 83695-9) IPF % (test code = 3.1 % 1.2-10.7 Platelet count 5392596669) measured by fluorescence method. NRBC/100 WBC (test See_Comment [Automat ed code = 5408549232) message] The system which generated this result transmit robert reference range : 0.0 - 10.0 /100 WBCs. The reference range was not used to interpret this result as normal/abnormal . NRBC x10^3 (test code See_Comment [Auto mated = 4166213017) message] The system which generated this result transmit robert reference range : 10*3/?L. The reference range was not used to interpret this result as normal/abnormal . GRAN MAT (NEUT) % 68.2 % (test code = 770-8) IMM GRAN % (test code 1.60 % = 2004160506) LYMPH % (test code = 16.8 % 736-9) MONO % (test code = 8.3 % 5905-5) EOS % (test code = 4.7 % 713-8) BASO % (test code = 0.4 % 706-2) GRAN MAT x10^3(ANC) 3.05 10*3/uL 1.99-6.95 (test code = 0615577764) IMM GRAN x10^3 (test 0.07 10*3/uL 0.00-0.06 H code = 7471608374) LYMPH x10^3 (test 0.75 10*3/uL 1.09-3.23 L code = 731-0) MONO x10^3 (test code 0.37 10*3/uL 0.36-1.02 = 742-7) EOS x10^3 (test code 0.21 10*3/uL 0.06-0.53 = 711-2) BASO x10^3 (test code 0.01-0.09 = 704-7) ELLIPTO/OVAL (test 2+ See_Comment A [Automat ed code = 90833-3) message] The system which generated this result transmit robert reference range : (none). The reference range was not used to interpret this result as normal/abnormal . BANDS (test code = MARKED INCREASED A 7760775475) DOHLE BODIES (test Present A code = 7792-5) PLT ESTIMATE (test Decreased Normal A code = 9317-9) Lab Interpretation Abnormal (test code = 33235-4) [facility]21 20:04:25 Test Item Value Reference Range Interpretation Comments NA (test code = 139 mmol/L 135-145 9886275641) K (test code = 4.3 mmol/L 3.5-5.0 9496577179) CL (test code = 113 mmol/L 98-108 H 9261508414) CO2 TOTAL (test code = 19 mmol/L 23-31 L 2573746123) AGAP (test code = 2-16 7134533063) BUN (test code = 17 mg/dL 7-23 7957721200) GLUCOSE (test code = 91 mg/dL 70-110 0477507543) CREATININE (test code = 0.99 mg/dL 0.60-1.25 2128500705) TOTAL BILI (test code = 0.9 mg/dL 0.1-1.2 4643563528) CALCIUM (test code = 8.0 mg/dL 8.6-10.6 L 6800947390) T PROTEIN (test code = 7.8 g/dL 6.3-8.2 8660900617) ALBUMIN (test code = 2.9 g/dL 3.5-5.0 L 7582935565) ALK PHOS (test code = 198 U/L 34-122 H 8058409008) ALTv (test code = 36 U/L 5-50 1742-6) AST(SGOT) (test code = 75 U/L 13-40 H 2336062422) eGFR (test code = mL/min/1.73m2 6247762349) JOHNNY (test code = JOHNNY) Association of Glomerular Filtration Rate (GFR) and Staging of Kidney Disease* + --+ --+ ------+| GFR (mL/min/1.73 m2) ?| With Kidney Damage ?| ?Without Kidney Damage+ --------+ --------+ +| ?>90 ?| ?Stage one ?| ? Normal ?+ ---+ ---+ -------+| ?60-89 ?| ?Stage two ?| ? Decreased GFR ? + --+ --+ ------+| ?30-59 ?| ?Stage three ?| ? Stage three ? + --+ --+ ------+| ?15-29 ?| ?Stage four ? | ? Stage four ?+ ---+ ---+ -------+| ?<15 (or dialysis) ? ?| ?Stage five ? | ? Stage five ?+ ---+ ---+ -------+ *Each stage assumes the associated GFR level has been in effect for at least three months. ?Stages 1 to 5, with or without kidney disease, indicate chronic kidney disease. Notes: Determination of stages one and two (with eGFR >59mL/min/1.73 m2) requires estimation of kidney damage for at least three months as defined by structural or functional abnormalities of the kidney, manifested by either:Pathological abnormalities or Markers of kidney damage (including abnormalities in the composition of the blood or urine or abnormalities in imaging tests). Lab Interpretation Abnormal (test code = 68881-4) [facility] Whole [id number] 19:51:32 Test Item Value Reference Range Interpretation Comments LACTIC ACID (test code = 1.69 mmol/L 0.50-2.20 9080151014) Lab Interpretation (test code = Normal 10627-7) [facility] (ÁNGELA)2022-06-05 15:22:38 Test Item Value Reference Range Interpretation Comments Ascending Aorta (test 3.5 cm 2.2-3.8 code = 8782010995) Sinuses of Valsalva 3.6 cm 2.8-4.0 (test code = 8372084709) Sinus of Valsalva 35.90 cm (test code = 1593257673) Radiology Study observation (narrative) (test code = 26042-3) JOHNNY (test code = JOHNNY) Left Ventricle: Left ventricle size is normal. Normal wall motion. Normal systolic function. Estimated ejection fraction of 60 - 64%. Left Atrium: There is no evidence for left atrial appendage thrombus. Right Ventricle: Right ventricle size is normal. Grossly normal systolic function. Pulmonic Valve: Trace pulmonic valve regurgitation. Interatrial Septum: No patent foramen ovale is identified by agitated saline contrast study at baseline (no provocation) and by agitated saline contrast study following an increase in RA pressure induced by abdominal pressure. 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 Left VentricleLeft ventricle size is normal. Normal wall motion. Normal systolic function. Estimated ejection fraction of 60 - 64%.Right VentricleRight ventricle size is normal. Grossly normal systolic function.Left AtriumLeft atrium size is normal. There is no evidence for left atrial appendage thrombus.Right AtriumRight atrium size is normal.IVC/SVCIVC was not assessed.Mitral ValveThe mitral valve structure is normal. Trace mitral valve regurgitation. No mitral valve stenosis.Tricuspid ValveThe tricuspid valve structure is normal.Trace tricuspid valve regurgitation. No tricuspid valve stenosis.Aortic ValveThe aortic valve is trileaflet.Trace aortic valve regurgitation. No aortic valve stenosis.Pulmonic ValvePulmonic valve structure is grossly normal. Trace pulmonic valve regurgitation.Ascending AortaNormal sized ascending aorta and aortic root at the sinuses of Valsalva.PericardiumNo significant pericardial effusion.Interatrial SeptumNo patent foramen ovale is identified by agitated saline contrast study at baseline (no provocation) and by agitated saline contrast study following an increase in RA pressure induced by abdominal pressure. 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 The following view(s) were obtained: mid-esophageal. Saline (bubble) ultra sound enhancement agent was used during the study. A transesophageal probe was inserted by the general farm hand, under direct supervision of the attending dry cleaning teacher. There was minimal probe insertion difficulty. Deep sedation was given. Topical anesthesia was obtained using viscous lidocaine and liquid lidocaine spray. Sedation was provided by anesthesia. The image quality was good and The image quality was adequate. There were no complications during the procedure. Patient exhibited sinus rhythm.Prior StudyNo prior study available for comparison. Probe [id number] [facility] [id number] 17:34:30 Test Item Value Reference Range Interpretation Comments Case Report (test code Surgical Pathology = 139653897) Case: [id number] Authorizing Provider: Michael Palacios MD Collected: 06/01/2022 10:31 AM Ordering Location: MED/SURG Received: 06/01/2022 03:00 PM Pathologist: Delia Lerner MD Specimen: Stomach, NOS, 1-random gastric bxs FINAL DIAGNOSIS (test s8vpoAJhEVOzfTP6WMSsSY code = 35264379) Iuc8igr2XerDWpqEZrNPec pIUcjfSnom10kJW8gU56FR 6zUAXbGhZ2CFQwghH0Kxq4 JBNxLYBdpIFvH578s0gkh6 vjkfJhqKM7iNaiSHRgvjpv QnJ9KHsgPRVxcezbOTw2YR gxPHGexHG5DDIhiVWtR8Mr SPMcKI3bwtf8WVV3RZbqLV PeMkS3YGFjlZBhNENwtJzk QTaoz702DDQ7TwJmQATdnh LiqMsgtY7cHbLuBSWUED4Q KTTOUEETWY7KH28ePLYYR9 BTWTpccGFyXHRhYiAtIENI Mm2VPCClCP5FR9JNUtYeW0 FTVFJJVElTIFxwYXJcdGFi RM6sCjICFIDSAiDtGo6WSP kaBFkTC1VAAFbEA9AkR6ZP PZ6VB13HEVbTLcRfTTXddo 0= Pertinent Clinical t5liwIWzUJOdiXA8JWVpXX Information (test code Oog3ahj2JwaJMskLAxHZwc = 27511246) hSWgdpYdpl62vXV8wR03ZF 7wDHCsGpX7TYLoesX2Kxc1 VRCoJREhcJAlI083w5thj8 ozqbJcoNC9rWigTBHukcvp PqT5VFzrCJHvwspvAZo2UK agWQLvbZA2QCEwpTXbS2Fj FUXgTM9trbf2JAN8XPpbII CkYcU6PXPjxAReXGHkjJkk KKldw403EGT8HcImMEWqjt YtpNlbsB0jZeWdHLBYTXCw ACvgHVTga1cdBU6pmkA8iK YhXMsas5Kfhcdqi4KzVYxD WJ4aNmLtMoIrahNgLNNyxD JvdmlyYWwgdGhlcmFweSB3 gEQcNIPpP7X0WMRlpZ27XH 3xAQExRGBeWAAhmSR0RTIr YWZ4bZTzuSQht6FhWYG3uf NhJZT6BFFziLUaQTKiaWrw FXDgTIsscjQ0TFWdZBOfjL I5TOBct8v5cHScepHgQET5 UHPzAYKlsBShO4Y7LOGhJK CzISUxYDVhsyVtwl46ZEla kEipbPEeh2icnXLymPNOGc SQAIFkY3YofyKunYOqKMWT N0FvFmdaPRaiR5U2XFBCzI xkIHBvcnRhbCBoeXBlcnRl pcCknfPgD5CqsYCuwPB7tV avyM1deJuzVPdty8CdhABx T0IrNFsfXOYibZ2nsZDkEE OxEOjkAS2cFRCdiKY6uT9i SI2nIGQfAXRrMIT2aNzneF T7n5KaAWvot2caojYex4p2 hPTieZUfaRNhjo4urN7nbh E4GQZcZC5vaTZzBJrjWVCg CSJkTIOiCWHeW7JmhfJ7sG IvXH5nYVXnNKYxAYI2swdd OCThrAX2xDlij5toN1zqd6 JmXJLznY2tk3uhOY2nAQqn YXJ9 Gross Description (test w5ycuOHoPIXboYIMMKjkHC code = 24790) xykfOmQYXatVDaY1Vhdeoy AGhuYB0eJS5pnCdakFPhyK FxMW0EJBQtCbRkPUMrmEPu bfNfKlBxTRExsZZjfIG0KS PeBD5xoqyeHYdjZWvcHWMa ipF7MJZaeSExX5YxEXSfON 7vyjqgTFW2NEmxjF9iedZJ QvvpFl5yeCCyaEbkKmPwJd NoYXJzZXQwXGZuaWwgQXJp IYm2gL5EBgysGAN9SHLYSe esPHEwCL4To4hxFMOodXAz URN7PMjqmYLjCSBkMRVvFQ o3UJAuRKjseDDqBD3ibLjt VpqxjOvwe6OadKDwNZkqIQ KgCLJqEJspFBBsZQ0QHaRz UWX7VoU2DGblIIj6OTn2UN 2HSiIgQLKeDWzcVOX1InNn NMw7UFskDD9OOKCfSvx6Cl YkAMPbYHRqFgpsPFc0VHRx XFxmIEFyaWFsIFxcZnMgOC SxVUDdRPiackW1BUTsRNlr XGZzMTYgIFxwYXIgDQpccG uvpG7nPHYiY04of1GDm3Nr OB3MMWWkzcRlqZTrsIOvAD V4JwQnWID9MFG8IMx0iLRf CyUsiIwfYMufPPC6GwJjXK n7gVAgXrBsfOb3PTTdMIW5 GIl2DTv8vJK7IJXmmDv5By VjCPE1OfjmQUc1ePp0NFHz qHp4EnAvQHV4WTOgRCBdQH emvLQkS3ezTuweqlGwNFEg UZKuiMDkTJ4uqLSovPMcEr JkMGUiBKH2l35yJ3xmtBOi PD4HPDCclqSPEzhxTJZpXR z3acDdleFGYzQvYDWwMVSy SRlzYABxN4AfnfFnHRwxHG 7kLJZiDES7JJhrBkGtBDEg e4m2nOU4rUBgmCG1oJOpjE smXQ8gvRXdMbwAMvIMTXEW SUPOCZTKSHRWZN8KJzozoF VkaWNhbCByZWNvcmQgbnVt YmVyIGFuZCBnaXZlbiBhY2 Zqe2Wcf78rimJiLnNfBNPo Zd7zDKh7XZpqFI4wKPy8IQ rqXVAkA19klHLlgDFtFTU3 WADavjAsqBzfcGFfb29pIt 9ybSBsYWJlbGVkIHdpdGgg dGhlIHNhbWUgbmFtZSBhbm ZxMDGoZPAsuL7fLY50gJGa xn7klWSxJN0CNUBsvwLKNs AzM7AvfxMgCNnfMQKpwa2q bGluIGxhYmVsZWQgIjEtUk NZRS3EGCmFW8BNCMBfMomQ BOKNPSBcREIrWSLmrMc5aQ RpFIB6JS1gc0vixTHhqD0x tGZhIIZul4exEBReo2Y8DT FxeNRukU2cemBvaUBuv9Cq vW2cRWAfVyV9IVPnNfX8IA ZtVmCeiXAeqdWcW9guUKpg yVSrABGpFJvvANMcQUQ8Pe 1pdHRlZCBlbnRpcmVseSBp yaGmJJOfUYN1IHFGJITdz1 ygr9yzcykpIzeybATsfUae rg6zuLUuJM3PXQJpwcXGMe dzkuZ8VEbFNIRTSfLnTwQ5 MTMyNVxwYXIgDQpQYXRob2 wxS9tkWnZjzSLkfaGRStkw kQmjVvNeiPDbXjAqhiK2MH GsfITlVPF6JQ4aPKIdhflv XTDpBYUiCMC8IFmtmV75oK QwXGZzMTZccGFyfVxwbGFp jvKFNedcyU5wMaNgc6xduF m7IRKMHsfggUMatxmdpgB7 DJRyy4yneHojo4EtpYLcIC 4uvIcuwV1eWaNvEgPKLy3= Microscopic Description e0xkoDMeNYRjx1yhXVZssO (test code = 879970659) FuZzEwMzNcZnRuYmpcdWMx KZijuyMnGBahg9PcE7YtLq AwMFxhbnNpXGRlZmxhbmcx MWZsHEF0guQjIXYlWGxxGC XuJNbsOd6fwMMmtSpyYdKc SKHcf2xbdvUUozxipNc3k7 deDCCaNsU7mKEqZYxfQ8go qeDrwWZeJTKoUMn4cL13CM UhaE6bdYQrEAsgweDiXmJ2 LWvpHMAgLcU4YCIjpGVeHU PtJ1ddWPTlBJuaGOMjJIcn aFSrFFH4uItfp4U5lKWezV MakPimAcEuSgAuKcHMw3Mh APo2tMzyJ0OcVLOiLkU3yW QgUGFyYWdyYXBoIEZvbnQ7 oI07LRlcecU8cWDlv3Ffm2 1uy473jJ0aoUOaWXC8UZBg HOQwmKIwMFBfODR2YVPogX DaC8rdGWMhWP2yurwkNGfk EXvyYNPnmWQ5FRPneNXpA7 NvRLXiSFkxPGSwzgl8TxIn Yt4pfFUzuGtnEKxek4ynz7 xpgATpFyb6XICyGcAyMsia FGbko9Fdn9fgJPVngm7oKK Q1qJVrsVbmx9Y5yVNsXDTu wKNiqkCfKLNpScN8JXjrKV 1aon80QXZxELH0ip0sxCDg fDxnhgEylTZkYUyjC6OxFF Dpa618EYGfA3MkQURwg0Y7 cgQaBsOhJCLnwPN4nmO9TM YuNAa7wJUjrpB3ekDoiRCq F8pknV3aYJCwVQ6pabfsr5 xtNNzxHZqySJTmwGD9ceV2 BTEqjQOkY3QewV8gUTIkAX qjVWGukzs8WqGnKa1wxKDp eTcyMFxzYmtwYWdlXHBnbm NvbnRccGduZGVjXHBsYWlu XHBsYWluXGYwXGZzMjRccW aokMpdgX3dKrFzWsEnBDxd BD6tIQIgI8zgjRFcITVaXU NmU7cgGwExrB9waEanOEmh UzAfUiNsEKFImQPqh5Tve1 OmHyUpuDBgcA8vyOqljiYv dWJzdGFudGlhdGVzIHRoZS SgeL6amFPxbMCwuf8xgVAf XHBhclxwbGFpblxmMVxmcz RsITfcdgmrCIPbZNwwN5nl PmFwIAEbyJfbWLggz0InGC YxXGZzMjJccGFyXHBsYWlu XGYxXGZzMTZcbGFuZzEwMz NcaGljaFxmMVxkYmNoXGYx ORgcR0osCxPeT3PdABFrGT YgSSBoYXZlIHBlcnNvbmFs kVpmbnH8aEA6UIEkySetML KinIB9FL81DRDuTSUlltK7 fZ9vubIul6HgmHekWYOwRP NpbWVuKHMpLCByZXZpZXdl ZCBhbmQgYWdyZWVkIHdpdG bikPsbGKNmp6bxIC79L7Wl bGxvdydzIGludGVycHJldG P7oD6zUfttPMN7iH== [facility] RNA SerPl TALYA+hsget-zFiu8428-92-22 12:08:47 Test Item Value Reference Range Interpretation Comments HCV RNA SerPl [id number] IU/mL See_Comment H [Automated message] TALYA+probe-aCnc The system [facility] (test code = generated this result 48277-3) transmitted ref erence range: <=0. The reference range was not used to int erpret this result as normal/abnormal . This test utilizes FDA cleared SAAD AmpliPrep/SAAD TaqMan HCV test, v2.0 from [employer] which allows quantitation of viral loads between 15 copies/mL and 10,000,000 of plasma. Whenthe result is positive but <15 copies/mL of HCV RNA, the test will be reported as detected but less than 15 copies/mL". The SAAD AmpliPrep/ SAAD TaqMan HCV test, v2.0 is not intended for use as a screening test for the presence of HCV RNA in blood or as a diagnostic test to confirm the presence of HCV infection. 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 PROCEDURE PERFORMED: EGD - EGD with control of bleeding INSTRUMENTS: [id number]: None TOLERANCE: Good VISUALIZATION: Good MEDICATIONS: MAC AnesthesiaASA CLASSIFICATION: IIIANALGESIA: TIVA by anesthesia PROCEDURE TECHNIQUE:Prior to the procedure, a History and Physical was performed, and patient medications and allergies were reviewed.The risks and benefits of the procedure and the sedation options and risks were discussed with the patient. Consent was obtained. Pulse, blood oxygen saturation, and blood pressure were monitored throughout the procedure. After adequate sedation, the endoscope was introduced through the mouth and under direct visualization advanced to the . Careful examination of the esophagus, stomach and duodenum was performed. FINDINGS:The upper and middle esophagus were normal2 cm hiatal hernia notedNo esophageal varices presentThe gastric cardia, fundus, body, and antrum were notable for mild portal hypertensive gastropathythe lesser curvature of the gastric antrum was remarkable for nodular erythematous lesions with small erosions. These were biopsied. Persistent oozing was noted from one biopsy site and was treated with [employer] revolution 16 mm clips x2 with excellent hemostasis.The pylorus, duodenal bulb, and descending duodenum through the second portion of the duodenum appeared normal. SPECIMEN COLLECTED: Yes 1 ENDOSCOPIC DIAGNOSIS:Moderate sized hiatal herniaNo esophageal varicesMild portal hypertensive gastropathyNodular erythematous erosions on lesser curve of gastric antrum, biopsied X3one Biopsy site bleeding treated with endoclip x2 with excellent hemostasis RECOMMENDATIONS:Proceedwith TEERepeat EV screen in 3 years or sooner if decompensationsFollow up pathologyAvoid NSAIDs COMPLICATIONS:None. Intra-procedure complication: none; ESTIMATED BLOOD LOSS: None BLOOD PRODUCTS ADMINISTERED: NoneGRAFT/IMPLANT: None TOTAL PROCEDURE TIME: TOTAL SEDATION TIME: COMMENTS: CPT CODE:[id number] Esophagogastroduodenoscopy, flexible, transoral; with control of bleeding, any methodICD CODE:K74.0 Hepatic fibrosis I was present during the entire viewing portion of the procedure. I personally reviewed the images and report prepared by the resident or fellow and agree with the findings. After the procedure was completed, the patient was taken to the recovery in good condition. This Procedure was electronically signed of on :06/01/2022 11:00:00 AM By Michael SANTOSSeattle Va Medical CenterCoronavirus, CoVID-19, [id number] 23:14:49 Test Item Value Reference Range Interpretation Comments COVID-19 (SARS-COV-2) Not Detected Not Detected INTERP RETATION: No (test code = 45024-2) detect able levels of SARS-CoV-2 Coronavirus (COVID-19) were present in this patient's sampl e by this test. A no t detected result does not exclude the possibility of active infection with this virus due to ot her factors that ma y affect the resu lts such as a poorl y collected sampl e, viral titers be low the limit of detection of th e assay, and the infrequent possibility of inhibitors in t he sample. This re sult should be inter preted in conjunction with clinical, radiographic, a nd other laborator y findings and sh ould not be used as the sole indicator of active infectio n with SARS-CoV-2 Coronavirus (COVID-19).[employer] [facility]: This Hologic Ap rogelio SARS-CoV-2 mole cular diagnostic assa y utilizes Internal [employer] Mediated Amplification ( TMA) technology to r apidly detect the SARS -CoV-2 (COVID-19) viru s from respiratory selvin ples. In accordance w ith the FDA's [place] n[place] document "Polic y for Diagnostic Test s for Coronavirus Disease-2019 [facility]", thi s test was developed, and its performance characteristics were verified by the [facility] molecular diagn ostics laboratory and is authorized for clinical diagno stic use. This labor atory is certified [place] the Clinical Laboratory Improvement Amendments (CLI A) as qualified to pe rform high complexity clinical labora tory testing. Lab Interpretation Normal (test code = 01371-4) [facility] NetworkXcfwtnRDYL-ZoH-4 ORF1ab Resp Ql TALYA+[id number] 23:14:49 Test Item Value Reference Range Interpretation Comments Hospitalized? (test Yes code = 86538-7) ICU? (test code = No 26093-6) Symptomatic as No defined by CDC? (test code = 90817-5) Employed in No Healthcare? (test code = 02323-2) Resident in a No congregate care setting (including nursing homes, residential care for people with intellectual and developmental disabilities, psychiatric treatment facilities, group homes, board and care homes, homeless alf, foster care or other): (test code = 76122-4) SARS-CoV-2 ORF1ab NOT DETECTED Not Detected INTERPRETA TION: No Resp Ql TALYA+probe detectable levels of (test code = SARS-CoV-2 52772-5) Coronavirus (COVID-19) were present in this patient's sampl e by this test. A no t detected result does not exclude the possibility of active infection with this virus due to ot her factors that ma y affect the resu lts such as a poorl y collected sampl e, viral titers be low the limit of detection of th e assay, and the infrequent possibility of inhibitors in t he sample. This re sult should be inter preted in conjunction with clinical, radiographic, a nd other laborator y findings and sh ould not be used as the sole indicator of active infectio n with SARS-CoV-2 Coronavirus (COVID-19).COMM ENT: This Hologic Ap rogelio SARS-CoV-2 mole cular diagnostic assa y utilizes Internal Wholesaler Mediated Amplification ( TMA) technology to r apidly detect the SARS -CoV-2 (COVID-19) viru s from respiratory selvin ples. In accordance with\\XC2A0\\the FDA's guidance docume nt "Policy for Diagnostic Test s for Coronavirus Disease-2019 [facility] the [facility]", gary s test was developed, and its performance characteristics were verified by the [facility] molecular diagn ostics laboratory and is authorized for clinical diagno stic use. \\XC2A0\\[facility] s laboratory is certified under the Clinical Labora tory Improvement Amendments (CLI A) as qualified to pe rform high complexity clinical labora tory testing. HHSHBV surface Ab Ser [id number] 20:16:38 Test Item Value Reference Range Interpretation Comments HBV surface Ab Ser Ql (test code = POSITIVE Negative A 60560-6) HHSHAV IgG Ser [id number] 20:16:38 Test Item Value Reference Range Interpretation Comments HAV IgG Ser Ql (test code = 99587-5) POSITIVE Negative A HHSHepatitis 1995 Pnl [id number] 20:16:23 Test Item Value Reference Range Interpretation Comments HCV Ab SerPl Ql IA (test code = POSITIVE Negative A 40535-7) [facility] [id number] 15:45:59 Test Item Value Reference Range Interpretation Comments LV ESV index 2D 14.7 ml/m2 (test code = 0893721693) LVOT SV (test code 75.2 mL = 7029322319) IVSd (test code = 0.70 cm 0.6-2 3541789706) LVPWd (test code = 0.79 cm 7146870519) LVIDd (test code = 4.5 cm 4.2-5.8 9090118566) LVIDd index (test 2.4 cm/m2 2.2-3 code = 14801971) LVIDs (test code = 2.7 cm 2.5-4 1877347601) LVIDs index (test 1.4 cm/m2 1.3-2.1 code = 43370957) FS % (test code = 40.0 % See_Comment [Automate d 9310654398) message] The system which generated this result transmitted reference range : >18%. The reference range was not used to interpret this result as normal/abnormal . RWT (test code = 0.35 See_Comment [Automated 7916660455) message] The system which generated this result transmitted reference range : <=0.42. The reference range was not used to interpret this result as normal/abnormal . LVOT diam (test 2.1 cm code = 8886026542) LVOT area (test 3.5 cm2 code = 5509775190) LV mass (linear 102.5 g 88-224 method) (test code = 1866015570) LVMI (linear 53.9 g/m2 49-115 method) (test code = 9901131764) MV E darci (test 61.9 cm/s code = 3908050074) MV A darci (test 68.8 cm/s code = 9739502831) MV E/A ratio (test 0.9 code = 0183522530) MV e' lateral darci 13.8 cm/s >10 (test code = 9000043718) E/e' lateral (test 4.5 <13 code = 9670008) e' septal TDI 10.3 cm/s >7 (test code = 8690057) E/e' septal (test 6.0 <15 code = 2082860687) MV avg E/e' ratio 5.1 (test code = 8465589451) LVOT peak darci 1.0 m/s (test code = 4654611096) LVOT mean grad 2.0 mmHg (test code = 0763265130) LVOT pk grad rest 4 mmHg (test code = 2474301398) LA AP dimension 3.9 cm <4.0 (ES) (test code = 7553551246) LA major axis (ES) 4.9 cm (test code = 9808318212) LA/Ao ratio (test 1.720040291181540 code = 1602242240) BSA (test code = 1.9 m2 1627777096895) RVOT VTI (test 23.6 cm code = 6323905174) RV S' (l) (test 13.4 cm/s code = 6944804916) TAPSE (test code = 2.2 cm See_Comment [Automat ed 2598141746) message] The system which generated this result transmitted reference range : >=1.7. The reference range was not used to interpret this result as normal/abnormal . AV peak darci (test 1.3 m/s code = 6518232169) AV peak grad (test 7.2 mmHg code = 4703337981) AV mean grad (test 4.0 mmHg code = 4116473928) AV mean darci (test 0.9 m/sec code = 0715303512) AV VTI (test code 29.3 cm = 8924794691) LVOT peak grad 4.2 mmHg (test code = 8277830158) LVOT VTI (test 21.7 cm code = 7188266842) LVOT SV index 40.6 mL/m2 (test code = 1284458212) FLAVAI VTI index 1.4 cm2/m2 (test code = 9154019661) FLAVIA VTI (test code 2.6 cm2 = 0529229138) FLAVIA peak darci (test 2.7 cm2 code = 3406612918) AV Doppler darci 0.8 index pk darci (test code = 3123772897) AV Doppler darci 0.7 index VTI (test code = 6504542879) AV darci ratio (test 0.8 code = 0443787170) PV mean grad (test 4.0 mmHg code = 9971108504) PV peak darci (test 131.0 cm/s code = 9214965360) PV peak grad (test 6.9 mmHg code = 2055280886) PV VTI (test code 26.124907877903437 = 6290664) cm RVOT mn grad (test 3 mmHg code = 8035543396) RVOT pk grad (test 5.5 mmHg code = 4678190450) PV mean darci (test 88.10 cm/s code = 8190716766) RVOT pk darci (test 1.17 mm/s code = 2443185550) Sinuses of 3.6 cm 2.8-4.0 Valsalva (test code = 8568819927) Sinus of Valsalva 1.9 cm/m2 1.3-2.1 index BSA (test code = 574462266904) Aortic Root 0.42 Z-score (test code = 840064534199) LV RWT 2D (test 35.946123450191633 code = 4044745560) MV E/e' septal 5.219076940369878 <14 (test code = 8651442997) LV EDV index 2D 49.12 ml/m2 (test code = 3884553183) LV mass index 55.4 g/m2 (test code = 6267485523) LV mass size 1 102.5 cm (test code = 6265378724) LVPWd (test code = 7.9 cm 0.6-2 2216373323) LV ESV 2D (test 27.28 mL code = 4887806) LV EDV 2D (test 90.98 mL code = 4082144) IVSd 2D (test code 6.761603259470392 cm = 7279046) Sinus of Valsalva 35.87 cm (test code = 1179825428) TR peak darci (test 2.4 m/s <2.8 code = 7388388802) TR peak grad (test 23.0 See_Comment [Automat ed code = 5927430461) message] The system which generated this result transmitted reference range : <32 mmHg. The reference range was not used to interpret this result as normal/abnormal . RV basal diam 2.5 cm 2.4-4.1 (test code = 2265565814) LA vol BP (test 44.6 mL code = 9666338652) LA vol index (2D 23.5 ml/m2 16-34 biplane) (test code = 1442790753) IVC size (test 1.86 cm code = 7175167566) IVC proximal (test 18.447994055859251 code = 7636248575) cm RAP (test code = 8.0 mmHg 7899429487) sPAP (test code = 31.0 mmHg 8547457374) EDV (2D biplane) 102.9 mL (test code = 9445468813) EDV index (2D 54.2 ml/m2 34-74 biplane) (test code = 3403901338) ESV (2D biplane) 34.4 mL 21-61 (test code = 4274551692) LVOT SI (test code 37.0 ml/m2 = 83008102) EF (2D biplane) 66.6 % 52-72 (test code = 5758932820) LV EDV A4C (test 99.2 mL code = 4807283084) LV EDV index A4C 53.5 ml/m2 (test code = 3524941934) A4CEF (test code = 67.8 % 9123560994) A2CEF (test code = 64.0 % 9030072448) LV EDV A2C (test 99.2 mL code = 6727962921) LV EDV index A2C 53.6 ml/m2 (test code = 2000423054) LV ESV A2C (test 35.7 mL code = 4115523658) LV ESV index A2C 19.3 ml/m2 (test code = 4619210240) LV ESV A4C (test 31.9 mL code = 5433423964) LV ESV index A4C 17.2 ml/m2 (test code = 2164580623) ESV index (2D 18.1 mL/m2 11-31 biplane) (test code = 0498885340) LV GLS (test code -24.8 % See_Comment [Automate d = 3851394473) message] The system which generated this result transmitted reference range : -17%. The reference range was not used to interpret this result as normal/abnormal . GLS triplane (3P) -25.575989100571679 A4C (test code = % 4376715997) GLS triplane (3P) -24.762701565987061 A3C (test code = % 8666198116) GLS triplane (3P) -24.958073423076459 A2C (test code = % 1289664243) Radiology Study observation (narrative) (test code = 33086-3) JOHNNY (test code = JOHNNY) Left Ventricle: Left ventricle size is normal. Normal wall thickness. Normal systolic function. Estimated ejection fraction of 65 - 69%. EF by 2D Kaur biplane is 66.6%. Global longitudinal strain is normal with a value of -24.8 %. No regional wall motion abnormalities present. Normal diastolic function. Normal left ventricular filling pressure. Left VentricleLeft ventricle size is normal. Normal wall thickness. Normal systolic function. Estimated ejection fraction of 65 - 69%. EF by 2D Kaur biplane is 66.6%. Global longitudinal strain is normal with a value of -24.8 %. No regional wall motion abnormalities present. Normal diastolic function. Normal left ventricular filling pressure.Right VentricleRight ventricle size is normal. Normal systolic function.Left AtriumLeft atrium size is normal.Right AtriumRight atrium size is normal.IVC/SVCIVC diameter is normal and decreases less than 50% during inspiration, consistent with a right atrial pressure of 5-10 mmHg.Mitral ValveThe mitral valve structure is normal. Mildly calcified leaflets. No mitral valve regurgitation. No mitral valve stenosis.Tricuspid ValveThe tricuspid valve structure is normal.Trace tricuspid valve regurgitation. sPAP is 31.0 mmHg. No tricuspid valve stenosis.Aortic ValveThe aortic valve is trileaflet.Mildly calcified cusps. No aortic valve regurgitation. No aortic valve stenosis.Pulmonic ValveThe pulmonic valve structure is normal. Trace pulmonic valve regurgitation. No pulmonic valve stenosis.Ascending AortaThe aortic root at the sinus of Valsalva is at the upper limit of normal. Sinus of Valsalva is 3.6 cm. Sinus of Valsalva indexed is 1.9 cm/m2.PericardiumNo pericardial effusion.Interatrial SeptumNo atrial septal defect or parent foramen ovale identified. Lipomatous hypertrophy is present.Study DetailsImage quality was good. A complete 2D, color flow Doppler, spectral Doppler and strain echocardiogram was performed. The apical, parasternal, subcostal and suprasternal views were obtained.Prior StudyNo prior study available for comparison. [facility] TALYA+naxuk-[id number] 23:34:07 Test Item Value Reference Range Interpretation Comments HCV RNA SerPl 54901539 IU/mL See_Comment H [Automated message] TALYA+probe-aCnc The system [facility] (test code = generated this result 90293-3) transmitted ref erence range: <=0. The reference range was not used to int erpret this result as normal/abnormal . This test utilizes FDA cleared SAAD AmpliPrep/SAAD TaqMan HCV test, v2.0 from [employer] which allows quantitation of viral loads between 15 copies/mL and 10,000,000 of plasma. Whenthe result is positive but <15 copies/mL of HCV RNA, the test will be reported as detected but less than 15 copies/mL". The SAAD AmpliPrep/ SAAD TaqMan HCV test, v2.0 is not intended for use as a screening test for the presence of HCV RNA in blood or as a diagnostic test to confirm the presence of HCV infection. This test is intended for use as an aid in the management of patients with HCV infection.HHSCD4+CD8+ Cells NFr [id number] 13:44:10 Test Item Value Reference Range Interpretation Comments T-cell CD4 subset pnl Bld (test 31 cells/uL 431-1623 L code = 24107-9) CD3+CD4+ Cells/CD3+CD8+ Cells Bld 0.07 ratio 0.86-2.05 L (test code = 99652-6) CD4+CD8+ Cells NFr Bld (test code 4.6 % 25.0-56.0 L = 82129-6) HHSCoronavirus (CoVID-19), Influenza A/B viral [id number] 22:05:04 Test Item Value Reference Interpretation Comments Range COVID-19 Not Detected Not Detected INTERPRETATION: (SARS-COV-2) (test No detect able code = 38769-2) levels of SARS-CoV-2 Coronavirus (COVID-19) were present in this patient's sampl e by this test. A not detected result does not exclude the possibility of active infectio n with this virus due to other factors that ma y affect the results such as a poorly collected sample, viral titers below th e limit of detection of th e assay, and the infrequent possibility of inhibitors in the sample. Thi s result should b e interpreted in conjunction wit h clinical, radiographic, and other laboratory findings and should not be used as the joce e indicator of active infectio n with SARS-CoV-2 Coronavirus (COVID-19). Influenza A (test Not Detected Not Detected code = 83474-3) Influenza B (test Not Detected Not Detected code = 83726-7) RSV (test code = Not Detected Not Detected 56970-2) JOHNNY (test code = INTERPRETATION: A JOHNNY) positive result for one or more of the viruses (influenza A, influenza B, or RSV) in this test, is suggestive of an active infection. A not detected result does not exclude the possibility of active infection with this virus due to other factors that may affect the results such as a poorly collected sample, viral titers below the limit of detection of the assay, and the infrequent possibility of inhibitors in the sample. This result should be interpreted in conjunction with clinical, radiographic, and other laboratory findings and should not be used as the sole method of determination of active infection with these viruses. COMMENT: This [employer] Xpress SARS-CoV-2/Flu/RSV real-time PCR test was developed, and its performance characteristics verified by the [facility] molecular diagnostic Laboratory and is acceptable for patient testing. It has been approved for patient testing by the FDA under the Emergency Use Authorization pathway. This laboratory is certified under federal CLIA regulations to perform this type of high complexity testing. Lab Interpretation Normal (test code = 98415-3) [facility] CenterFLUABV+SARS[facility]CoV-2+RSV Pnl Resp TALYA+odjpm0165-04-20 22:05:04 Test Item Value Reference Range Interpretation Comments Symptomatic as Yes defined by CDC? (test code = 67722-2) Date of Symptom Onset 1263-92-66Q61:0 (test code = 86562-6) 0:00Z Hospitalized? (test No code = 40159-3) ICU? (test code = No 50187-2) Employed in No Healthcare? (test code = 05084-6) Resident in a No congregate care setting (including nursing homes, residential care for people with intellectual and developmental disabilities, psychiatric treatment facilities, group homes, board and care homes, homeless alf, foster care or other): (test code = 75107-8) SARS-CoV-2 RNA Resp NOT DETECTED Not Detected INTERPRE TATION: No Ql TALYA+probe (test detectabl e levels code = 56010-5) of SARS-CoV- 2 Coronavirus (COVID-19) were present in this patient's sampl e by this test. A not detected result does not exclude the possibility of active infectio n with this virus due to other factors that ma y affect the resu lts such as a poorl y collected sampl e, viral titers be low the limit of detection of th e assay, and the infrequent possibility of inhibitors in t he sample. This result should b e interpreted in conjunction wit h clinical, radiographic, a nd other laborator y findings and should not be u sed as the sole indicator of active infectio n with SARS-CoV-2 Coronavirus (COVID-19). INTERPRETATION: A positive result for one or more of the viruses (influenza A, influenza B, or RSV) in this test, is suggestive of an active infection. A not detected result does not exclude the possibility of active infection with this virus due to other factors that may affect the results such as a poorly collected sample, viral titers below the limit of detection of the assay, and the infrequent possibility of inhibitors in the sample. This result should be interpreted in conjunction with clinical, radiographic, and other laboratory findings and should not be used as the sole method of determination of active infection with these viruses.COMMENT: This [employer] X[employer] Xpress SARS-CoV-2/Flu/RSV real-time PCR test was developed, and its performance characteristics verified by the [facility] molecular diagnostic Laboratory and is acceptable for patient testing. It has been approved for patient testing by the FDA under the Emergency Use Authorization pathway. This laboratory is certified under federal CLIA regulations to perform this type of high complexity testing.HHS12 Lead [id number] 14:06:4512 LEAD EKG FOR [facility] Test Date: 1789-09-61Emz Name: KENRICK MONTES Department: 5520Patient ID: [id number] Room: Gender: M Helicopter Specialist: [id number]: 1970 Requested By: OLYA BROOKE FOrashwin Number: [id number] Reading MD: Bren Gallegos MeasurementsIntervals [place] Rate: 107 P:66PR: 140 QRS: 55QRSD: 93 T: 62QT: 340 QTc: 403 Interpretive StatementsSINUS TACHYCARDIAElectronically Signed On 05-25-2022 16:03:39 CDT by Bren GallegosHarris Hospital HealthRPR Qn+TP Abs (Reactive)2022-05-22 07:09:00 Test Item Value Reference Range Interpretation Comments RPR, Quant. (test code 1:2 See_Comment Medic al Director: Anthony = [id number]) Manda Martin lity Phone: [Automated mess age] The system which ge nerated this result tra nsmitted reference range : NonRea<1:1. The reference range was not used to interpr et this result as normal/abnormal . Treponema pallidum Reactive Non Reactive Medical D irector: Antibodies (test code Elbert Cleary, = 405937) MDFacility Phon e: Patient FastingCryptococcus Antigen, [id number] 07:09:00 Test Item Value Reference Range Interpretation Comments Cryptococcus Antigen, Negative Negative Medica l Director: Serum (test code = Jose Francisco sandoval, 578536) MDFacility Phon e: Patient FastingCD4/CD8 Ratio [id number] 07:09:00 Test Item Value Reference Range Interpretation Comments Absolute CD 4 20 /uL 359-1519 Medical Direct or: [place] (test code Anthony Yanez ue, = 655153) MDFacility Phon e: % CD 4 Pos. Lymph. 9.9 % 30.8-58.5 Medical D irector: (test code = Anthony Colon, 657685) MDFacility Phon e: Abs. CD 8 137 /uL 109-897 Medical Directo r: Suppressor (test Anthony Yanezu e, code = 177472) MDFacility Ph one: % CD 8 Pos. Lymph. 68.6 % 12.0-35.5 Medical D irector: (test code = Anthony Colon, 555907) MDFacility Phon e: CD4/CD8 Ratio 0.14 0.92-3.72 Medical Direct or: (test code = Anthony Colon, 683991) MDFacility Phon e: WBC (test code = 1.8 x10E3/uL 3.4-10.8 Field Project Manager luis e: [id number]) Anthony Colon, MDFacility Phon e: RBC (test code = 3.35 x10E6/uL 4.14-5.80 Medical Di ulysses: 789113) Anthony Colon, MDFacility Phon e: Hemoglobin (test 11.1 g/dL 13.0-17.7 Field Project Manager luis e: code = 598714) Anthony Colon, MDFacility Phon e: Hematocrit (test 31.3 % 37.5-51.0 Field Project Manager luis e: code = 393434) Anthony Colon, MDFacility Phon e: MCV (test code = 93 fL 79-97 Field Project Manager luis e: [id number]) Anthony Colon, MDFacility Phon e: MCH (test code = 33.1 pg 26.6-33.0 Field Project Manager luis e: [id number]) Anthony Colon, MDFacility Phon e: MCHC (test code = 35.5 g/dL 31.5-35.7 Medical Di ulysses: 375041) Anthony Colon, MDFacility Phon e: RDW (test code = 14.1 % 11.6-15.4 Field Project Manager luis e: 684195) Anthony Colon, MDFacility Phon e: Platelets (test 51 x10E3/uL 150-450 Platelet cou nt code = 956226) verified by examination of peripheral bloo d smear.Decreased .M edical Director : Anthony Cloon MDFacility Phon e: Neutrophils (test 56 % Not Estab. Medical Di ulysses: code = 295283) Anthony Eugene Montoyacarolyn, MDFacility Phon e: Lymphs (test code 10 % Not Estab. Medical Di ulysses: = 055833) Anthonyluna Montoyacarolyn, MDFacility Phon e: Monocytes (test 16 % Not Estab. Medical Dire ctor: code = 857651) Anthony Eugene Darlene, MDFacility Phon e: Eos (test code = 0 % Not Estab. Field Project Manager luis e: [id number]) Anthony Colon, MDFacility Phon e: Basos (test code = 2 % Not Estab. Medical D irector: [id number]) Anthony Eugene Darlene, MDFacility Phon e: Immature Cells Note Medical Direc tor: (test code = Anthony Colon, 158621) MDFacility Phon e: Neutrophils 1.3 x10E3/uL 1.4-7.0 Medical Directo r: (Absolute) (test Anthony Montoyadomiu e, code = 148300) MDFacility Ph one: Lymphs (Absolute) 0.2 x10E3/uL 0.7-3.1 Medical Di ulysses: (test code = Anthony Yanezue, 804811) MDFacility Phon e: Monocytes(Absolute 0.3 x10E3/uL 0.1-0.9 Medical D irector: ) (test code = Anthony Montoyakue, 669210) MDFacility Phon e: Eos (Absolute) 0.0 x10E3/uL 0.0-0.4 Medical Direc tor: (test code = Anthony Montoyakue, 754588) MDFacilniko Phon e: Baso (Absolute) 0.0 x10E3/uL 0.0-0.2 Medical Dire ctor: (test code = Anthony Colon, 390935) MDFacility Phon e: Hematology Note: Manual Medical Directo r: Comments: (test differential was Anthony Eugene whiteside, code = 488599) performed. Uzaircilniko Ph one: Patient FastingImmature Cells (Note)2022-05-22 07:09:00 Test Item Value Reference Range Interpretation Comments Bands (test code = 16 % Not Estab. Medical D irector: Anthony Knight [id number] De Dios ty Patient FastingComp. Metabolic Panel (14)2022-05-22 07:09:00 Test Item Value Reference Range Interpretation Comments Glucose (test code = 83 mg/dL 70-99 Plea se note 792875) reference inter fifi changeBlock Trader: Eugenio Montes ty BUN (test code = 9 mg/dL 6-24 Field Project Manager luis e: [id number]) Anthony Deborah Martin Phon e: Creatinine (test code 0.73 mg/dL 0.76-1.27 Medica l Director: = 653228) Deborah Montes Phon e: eGFR (test code = 110 >59 Medical Di ulysses: 377130) mL/min/1.73 Deborah Montes Phon e: BUN/Creatinine Ratio 12 9-20 Block Trader: (test code = 260477) Deborah Montes Phon e: Sodium (test code = 138 mmol/L 134-144 Block Trader: 266952) Deborah Montes Phon e: Potassium (test code 3.8 mmol/L 3.5-5.2 Block Trader: = 262084) Anthony Colon, MDFacility Phon e: Chloride (test code = 106 mmol/L 96-[address] [facility] Director: 568656) Anthony Colon, MDFacility Phon e: Carbon Dioxide, Total 21 mmol/L 20-29 [facility]: (test code = 520976) Anthony Colon, MDFacility Phon e: Calcium (test code = 7.9 mg/dL 8.7-10.2 Block Trader: 166583) Anthony Colon, MDFacility Phon e: Protein, Total (test 7.4 g/dL 6.0-8.5 Block Trader: code = 890757) Anthony Colon, MDFacility Phon e: Albumin (test code = 3.0 g/dL 3.8-4.9 Block Trader: 573638) Anthony Colon, MDFacility Phon e: Globulin, Total (test 4.4 g/dL 1.5-4.[address] [facility] Director: code = 548599) Anthony Colon, MDFacility Phon e: A/G Ratio (test code 0.7 1.2-2.2 Block Trader: = 928088) Anthony Colon, MDFacility Phon e: Bilirubin, Total 1.0 mg/dL 0.0-1.2 Field Project Manager luis e: (test code = 735433) Anthony Colon, MDFacility Phon e: Alkaline Phosphatase 125 IU/L 44-121 Block Trader: (test code = 190894) Anthony Colon, MDFacility Phon e: AST (SGOT) (test code 120 IU/L 0-[address] [facility] Director: = 410104) Deborah Montes Phon e: ALT (SGPT) (test code 61 IU/L 0-44 Medica l Director: = 362864) Deborah Montes Phon e: Patient FastingRNA, Real Time PCR (Non-Graph)2022-05-22 07:09:00 Test Item Value Reference Range Interpretation Comments HIV-1 RNA by PCR 845764 copies/mL .The reportable (test code = range for this assay 002599) is 20 to 10,000,000copie s HIV-1 RNA/mL. .Medical Direct or: Deborah Matthews Phon e: log10 HIV-1 RNA 5.568 Medical Dire ctor: (test code = fif04mbzm/mL Jose Francisco Stoddard, 547633) Facility Phon e: Patient FastingToxoplasma gondii Ab, [id number] 07:09:00 Test Item Value Reference Range Interpretation Comments Toxoplasma gondii See comment 0.0-7.1 Negative <7.2 Ab,IgG (test code = IU/mL Equivoca l 7.2 - 8.7 779070) Positive >8.7Medical Director: Deborah New i Phon e: Patient FastingCytomegalovirus (CMV) Ab, [id number] 07:09:00 Test Item Value Reference Range Interpretation Comments Cytomegalovirus (CMV) See comment 0.00-0.59 Negat milady <0.60 Ab, IgG (test code = U/mL Equivoc al 0.60 - 040372) 0.69 Positive >0.69Medical Director: Deborah New i Phon e: Patient FastingRPR, Rfx Qn RPR/Confirm [id number] 07:09:00 Test Item Value Reference Range Interpretation Comments RPR (test code = Reactive Non Reactive Field Project Manager luis e: Anthony Knight [id number]) Eugenio Colon ty Patient FastingChlamydia/GC [id number] 18:08:00 Test Item Value Reference Range Interpretation Comments Chlamydia trachomatis, Negative Negative Medic al Director: Anthony TALYA (test code = Eugene Colon MD Facility 338571) Phone: Neisseria gonorrhoeae, Negative Negative Medic al Director: Anthony BABIN (test code = Eugene Colon MD Facility [id number]) Phone: Patient FastingSRC:URCMV DNA [id number] 01:17:00 Test Item Value Reference Range Interpretation Comments CMV DNA PCR Positive < 200 Negative CMV DNA detec robert.The (test code = IU/mL quantitative ra nge of CMVDNA) this assay is 2 00 to 1 millionIU/mL. HIV 1 RNA PCR [id number] 01:17:00 Test Item Value Reference Range Interpretation Comments HIV-[place] [address] See_Comment INFCE Resul t Units: (test code = copies/mLThe re portable HIVRNAPCRT) range for this assay is 20 to 10,000,000co pies HIV-1 RNA/mL. [Automa robert message] The system [employer] generated this result tra nsmitted reference range : (). The reference range was not used to interpr et this result as arlene l/abnormal. HIV-1 [id number] 01:17:00 Test Item Value Reference Range Interpretation Comments HIV-1 GENOTYPE (test Comment See_Comment Johnathan gen e amplicon code = [id number]) adequate f or sequencing [Automated mess age] The system which ge nerated this result tra nsmitted reference range : (). The reference range was not used to interpr et this result as normal/abnormal . HIV-1 GENOTYPE 2 (test Comment See_Comment The H IV-1 GenoSure(R) MG code = [id number]) for this s pecimen has beencompleted.P erformed At: [facility] [address] [place], [place] [address]Zjaevm ra Elbert VARGAS Ph:[phone] rformed At: INTL9 [employer] [address] [place], [place] [address]KkndkGolden Allred MD Ph:[phone] [Automated mess age] The system which ge nerated this result tra nsmitted reference range : (). The reference range was not used to interpr et this result as normal/abnormal . HIV GENE [id number] 01:17:00 Test Item Value Reference Range Interpretation [...] BENJAMÍN) RT MUTATIONS (test code = RTMUT) WI MUTATIONS (test code = PRMUT) HCV RNA by PCR, Qn Rfx [id number] 20:08:00 Test Item Value Reference Range Interpretation Comments Hepatitis C See Final Medical Directo r: Quantitation (test Results IU/mL Elbert morrison, code = 880357) MDFacility Ph one: Test Information: See comment The quanti tative (test code = range of this a ssay 978809) is 15 IU/mL to 100 million IU/mL.Block Trader: Deborah New i Phon e: HCV Genotype (test To be performed Medica l Director: code = 345608) on this [address] ra, specimen. Facility Phon e: PDF (test code = . Field Project Manager luis e: [id number]) Abbi [facility] Patient Not FastingHCV RNA (International Units) (See Final Results)2021-11-11 20:08:00 Test Item Value Reference Range Interpretation Comments HCV RNA 78293253 IU/mL Medical Direc tor: (International [address] ra, Units) (test Facilniko Phon e: code = 341467) [phone] HCV log10 (test 7.706 log10 IU/mL Block Trader: code = 281200) Deborah Hicks ra Phon e: Patient Not FastingHepatitis C [id number] 20:08:00 Test Item Value Reference Range Interpretation Comments Hepatitis C 1a Medical Directo r: Elbert Genotype (test CORKY Cleary acility code = 495009) Please note: (test See comment This test was developed code = 685085) and its perfo rmance characteristics determinedby [facility]. It has not been cl eared or approved by the U.S. Food andDrug Administration. .The FDA has determined that such clearance or ap proval is notnecessary. T his test is used for cli nical purposes. It sh ould not beregarded as investigational or for research.Medica l Director: Nuria New i ility Phone: Patient Not FastingRNA, Real Time PCR (Non-Graph)2021-11-11 20:08:00 Test Item Value Reference Range Interpretation Comments HIV-1 RNA by PCR 37806 copies/mL .The re portable (test code = range for this assay 262737) is 20 to 10,000,000copie s HIV-1 RNA/mL. .Medical Direct or: Deborah Matthews Phon e: log10 HIV-1 RNA 4.978 Medical Dire ctor: (test code = dmj10ybtk/mL Jose Francisco Stoddard, 122972) Uzaircilniko Phon e: Patient Not FastingRPR, Rfx Qn RPR/Confirm [id number] 20:08:00 Test Item Value Reference Range Interpretation Comments RPR (test code = Reactive Non Reactive Field Project Manager luis e: Anthony Knight [id number]) Eugenio Colon ty Patient Not FastingRPR Qn+TP Abs (Reactive)2021-11-11 20:08:00 Test Item Value Reference Range Interpretation Comments RPR, Quant. (test code 1:2 See_Comment Medic al Director: Anthony = 033197) Manda Martin lity Phone: [Automated mess age] The system which ge nerated this result tra nsmitted reference range : NonRea<1:1. The reference range was not used to interpr et this result as normal/abnormal . Treponema pallidum Reactive Non Reactive Medical D irector: Antibodies (test code Elbert Cleary, = 366701) Deborah Phon e: Patient Not FastingQuantiFERON-TB Gold [id number] 18:08:00 Test Item Value Reference Interpretation Comments Range QuantiFERON Incubation Medical Directo r: Anthony Incubation (test performed. Eugene Colon MD Facility code = 872959) QuantiFERON-TB See comment Negative Chemiluminesc ence Gold Plus (test immunoassay code = 454098) methodologyMe dical Director: Deborah Mcdaniel Phon e: Patient FastingQuantiFERON-TB Gold Plus (Incubation performed.)2021-10-04 18:08:00 Test Item Value Reference Range Interpretation Comments QuantiFERON Criteria See comment The Luis Carlos ntiFERON-TB (test code = 737142) Gold Pl us result is determined by subtractingthe Nil value from eith er TB antigen (Ag) tu be. The mitogen tubeser ves as a control for t he test.Medical Di ulysses: Jose Francisco Uzair Stoddardcilniko Phon e: QuantiFERON TB1 Ag 0.11 IU/mL Medical D irector: Value (test code = [place], 952047) MDFacility Phon e: QuantiFERON TB2 Ag 0.11 IU/mL Medical D irector: Value (test code = [place], 353360) MDFacility Phon e: QuantiFERON Nil 0.11 IU/mL Medical Dire ctor: Value (test code = [place], 606698) MDFacility Phon e: QuantiFERON Mitogen 1.31 IU/mL Block Trader: Value (test code = [place], 957284) MDFacility Phon e: Patient FastingRNA, Real Time PCR (Non-Graph)2021-10-04 18:08:00 Test Item Value Reference Range Interpretation Comments HIV-1 RNA by PCR 04356 copies/mL .The re portable (test code = range for this assay 681864) is 20 to 10,000,000copie s HIV-1 RNA/mL. .Medical Direct or: Jose Francisco StoddardUzaircility Phon e: log10 HIV-1 RNA 4.958 Medical Dire ctor: (test code = nmq61jskx/mL Jose Francisco Stoddard, 906681) MDFacility Phon e: Patient FastingHemoglobin [id number] 18:08:00 Test Item Value Reference Range Interpretation Comments Hemoglobin A1c (test 5.2 % 4.8-5.6 . Pred iabetes: 5.7 - code = 196510) 6.4 Diabetes : >6.4 Glycemic contro l for adults with ian betes: <7.0Medical Dir luis e: Cynthia Montes DFacility Phone: Patient FastingToxoplasma gondii Ab, [id number] 18:08:00 Test Item Value Reference Range Interpretation Comments Toxoplasma gondii See comment 0.0-7.1 Negative <7.2 Ab,IgG (test code = IU/mL Equivoca l 7.2 - 8.7 111317) Positive >8.7Medical Director: Kathe Cleary MDFacility Phon e: Patient FastingHLA B5701 [id number] 18:08:00 Test Item Value Reference Range Interpretation Comments Result (test See comment The HLA-B*57:01 allele, code = associated with abacavir 387434) hyper-sensitivi ty, was not detected in thi [...] Epsicom(TM ), or Trizivir(R) Pre scribing information [facility] [employer] [place], [place].2. Sabine S, et al . HLA-B*5701 [...] Drug Admini stration.HLA Lab CLIA ID Number [id number] .This test was performed using PCR (Polymerase Chain Reaction)/SSOP( Sequence Specific Oligon ucleotide Probes) [employer] ue. SBT (SequenceBased Typing) and/or SSP (Sequence S pecific Primers) may be used ass upplemental methods when ne cessary. Please contact [facility] at if you have any questions. . D irector of HLA Laboratory Dr Reece Verdin, PhDMedical Dire ctor: Kt Verdin, PhDFacili ty Patient FastingRPR, Rfx Qn RPR/Confirm [id number] 18:08:00 Test Item Value Reference Range Interpretation Comments RPR (test code = Reactive Non Reactive Field Project Manager luis e: Anthony Knight [id number]) Eugenio Colon ty Patient FastingRPR Qn+TP Abs (Reactive)2021-10-04 18:08:00 Test Item Value Reference Range Interpretation Comments RPR, Quant. (test code 1:2 See_Comment Medic al Director: Anthony = 436703) Manda Martin lity Phone: [Automated mess age] The system which ge nerated this result tra nsmitted reference range : NonRea<1:1. The reference range was not used to interpr et this result as normal/abnormal . Treponema pallidum Reactive Non Reactive Medical D irector: Antibodies (test code Elbert Cleary, = 003486) Facility Phon e: Patient FastingHIV Ab/p24 Ag with [id number] 18:08:00 Test Item Value Reference Range Interpretation Comments HIV Ab/p24 Ag See comment Non Reactive Please refer t o the Final Screen (test Interpretation. Results code = 237813) reactive byHI V Antigen/Antibod y EIA must be confirmed by the HIV testingalgorith m to be considered caro cative of a true HIV infect ion.Block Trader: Deborah Montes Phon e: Patient FastingHIV 1/2 Ab Differentiation (Preliminary Reactive)2021-10-04 18:08:00 Test Item Value Reference Range Interpretation Comments HIV 1 Ab (test Reactive Non Reactive Medical Direc tor: Anthony code = 826903) Uzair Martin Phone: HIV 2 Ab (test Non Reactive Non Reactive Medical Direc tor: Anthony code = 838159) Uzair Martin Phone: Interpretation: See comment Laboratory e vidence (test code = consistent with HIV-1 661636) infection.Medic al Director: Anthony Knight MD DarleneFacility Phon e: Patient FastingUrinalysis, Routine [id number] 18:08:00 Test Item Value Reference Range Interpretation Comments Specific [place] 1.018 1.005-1.030 Field Project Manager luis e: (test code = 985807) Anthony Knight MD DarleneFacility Phon e: pH (test code = 6.5 5.0-7.5 Medical Dire ctor: 337875) Anthony Knight MD DarleneFacility Phon e: Urine-Color (test Yellow Yellow Medical Di ulysses: code = 021676) Anthony Knight Darlene MDFacility Phon e: Appearance (test code Clear Clear Medica l Director: = 589598) Anthony Knight Darlene MDFacility Phon e: WBC Esterase (test Negative Negative Medical D irector: code = 473681) Anthony Knight Darlene MDFacility Phon e: Protein (test code = Negative Negative/Trace Medic al Director: 819933) Anthony Knight Darlene MDFacility Phon e: Glucose (test code = Negative Negative Block Trader: 676301) Anthony L Darlene MDFacility Phon e: Ketones (test code = Negative Negative Block Trader: 315326) Anthony Knight Darlene MDFacility Phon e: Occult Blood (test Negative Negative Medical D irector: code = 138383) Anthony Knight Darlene MDFacility Phon e: Bilirubin (test code Negative Negative Block Trader: = 065382) Anthony Colon Deborah Phon e: Urobilinogen,Semi-Qn 0.2 mg/dL 0.2-1.0 Block Trader: (test code = 872819) Anthony Knight Deborah Colon Phon e: Nitrite, Urine (test Negative Negative Block Trader: code = 625989) Anthony Colon Deborah Phon e: Microscopic See comment Microscopic not Examination (test indicated and not code = 046532) performed.Med ical Director: Eugenio Montes ty Phone: Patient FastingNONFASTING SRC:URCD4/CD8 Ratio [id number] 18:08:00 Test Item Value Reference Interpretation Comments Range Absolute CD 4 42 /uL 359-1519 Medical Direct or: Anthony [place] (test code Cynthia Martin DFacility = 148566) Phone: % CD 4 Pos. 8.3 % 30.8-58.5 Medical Directo r: Anthony Lymph. (test code Cynthia Martin DFacility = 539204) Phone: Abs. CD 8 306 /uL 109-897 Medical Directo r: Anthony Suppressor (test Eugene MD Darlene Facility code = 562267) % CD 8 Pos. 61.2 % 12.0-35.5 Medical Directo r: Anthony Lymph. (test code Cynthia Martin DFacility = 766980) Phone: CD4/CD8 Ratio 0.14 0.92-3.72 Medical Direct or: Anthony (test code = Manda Martin lity 838784) Phone: WBC (test code = 2.2 x10E3/uL 3.4-10.8 Field Project Manager luis e: Anthony 539532) Manda Martin lity Phone: RBC (test code = 3.56 x10E6/uL 4.14-5.80 Polychroma susana 178750) presentElliptoc ytes present.Block Trader: Anthony Colon MDTreva Phon e: Hemoglobin (test 12.2 g/dL 13.0-17.7 Field Project Manager luis e: Anthony code = 307975) Uzair Martin Phone: [phone] Hematocrit (test 33.9 % 37.5-51.0 Field Project Manager luis e: Anthony code = 037499) Uzair MartinDiagnosoft Phone: [phone] MCV (test code = 95 fL 79-97 Field Project Manager luis e: Anthony 857707) Manda Martin McPhy Phone: MCH (test code = 34.3 pg 26.6-33.0 Field Project Manager luis e: Anthony 184217) Manda Martin McPhy Phone: [phone] MCHC (test code = 36.0 g/dL 31.5-35.7 Medical Di ulysses: Anthony 195696) Manda Martin McPhy Phone: RDW (test code = 13.7 % 11.6-15.4 Field Project Manager luis e: Anthony 030292) Manda Martin McPhy Phone: [phone] Platelets (test 71 x10E3/uL 150-450 Platelet cou nt verified code = 524318) by examinatio n of peripheral bloo d smear.Decreased .Block Trader: Deborah Montes Phon e: Neutrophils (test 51 % Not Estab. Medical Di ulsyses: Anthony code = 548163) Uzair Martin Phone: [phone] Lymphs (test code 25 % Not Estab. Medical Di ulysses: Anthony = 971857) Manda Martin McPhy Phone: Monocytes (test 14 % Not Estab. Medical Dire ctor: Anthony code = 507367) Eugene Colon MDYuni cility Phone: Eos (test code = 8 % Not Estab. Field Project Manager luis e: Anthony 848874) Eugene Manda Colon lity Phone: Basos (test code 1 % Not Estab. Field Project Manager luis e: Anthony = 977525) Eugene RenatamanavManda lity Phone: Neutrophils 1.1 x10E3/uL 1.4-7.0 Medical Directo r: Anthony (Absolute) (test Eugene Colon MD Facility code = 113793) Lymphs (Absolute) 0.5 x10E3/uL 0.7-3.1 Medical Di ulysses: Anthony (test code = Manda Martin lity 022125) Phone: Monocytes(Absolut 0.3 x10E3/uL 0.1-0.9 Medical Di ulysses: Anthony e) (test code = Eugene LindsayMD carolynF acility 794042) Phone: Eos (Absolute) 0.2 x10E3/uL 0.0-0.4 Medical Direc tor: Anthony (test code = Manda Martin lity 677837) Phone: Baso (Absolute) 0.0 x10E3/uL 0.0-0.2 Medical Dire ctor: Anthony (test code = Manda Martin lity 958979) Phone: Immature 1 % Not Estab. Medical Directo r: Anthony Granulocytes Eugene Lindsaycarolyn Manda litarminda (test code = Phone: 921885) Immature Grans 0.0 x10E3/uL 0.0-0.1 Medical Direc tor: Anthony (Abs) (test code Eugene Colon MD Facility = 109816) Phone: Hematology Note: Verified Medical Direc tor: Anthony Comments: (test by microscopic Eugene Colon Cynthia DFacility code = 376372) examination. Patient FastingComp. Metabolic Panel (14)2021-10-04 18:08:00 Test Item Value Reference Range Interpretation Comments Glucose (test code 90 mg/dL 65-99 Medical D irector: Anthony = 021680) Manda Martin lity Phone: BUN (test code = 13 mg/dL 6-24 Field Project Manager luis e: Anthony 100203) Manda Martin lity Phone: Creatinine (test 0.72 mg/dL 0.76-1.27 Effectiv e February code = 858887) 2021 [facility] will begin reporti ng the 2020 CKD-EPI creatinine equa tion that estimates kidney function withou t a race variable.M edical Director: Eugenio Montes ty Phone: eGFR If NonAfricn 108 >59 Medical Di ulysses: Anthony Am (test code = mL/min/1.73 CORKY Martin acility 684182) Phone: eGFR If Africn Am 125 >59 In accor dance with (test code = mL/min/1.73 recommendations from 652170) the NKF-ASN Tas k force, [facility] is in the process of updating its eG FR calculation to the 2020 CKD-EPI creatinine equa tion that estimates kidney function withou t a race variable.M edical Director: Eugenio Montes ty Phone: BUN/Creatinine 18 05-01 Medical Direc tor: Anthony Ratio (test code = Deborah Martin 208341) Phone: Sodium (test code = 139 mmol/L 134-144 Block Trader: Anthony 599650) Manda Martin lity Phone: Potassium (test 4.0 mmol/L 3.5-5.2 Medical Dire ctor: Anthony code = 974200) Uzair Martin Phone: [phone] Chloride (test code 106 mmol/L 96-106 Block Trader: Anthony = 708202) Manda Martin [employer] Phone: [phone] Carbon Dioxide, 22 mmol/L 20-29 Medical Dire ctor: Anthony Total (test code = Uzair Martinformerly [facility] 559980) Phone: [phone] Calcium (test code 8.8 mg/dL 8.7-10.2 Medical D irector: Anthony = 766363) Manda Martin [employer] Phone: [phone] Protein, Total 7.5 g/dL 6.0-8.5 Medical Direc tor: Anthony (test code = Manda Martin lity 133262) Phone: [phone] Albumin (test code 3.5 g/dL 3.8-4.9 Medical D irector: Anthony = 351817) Manda Martin [employer] Phone: [phone] Globulin, Total 4.0 g/dL 1.5-4.5 Medical Dire ctor: Anthony (test code = Manda Martin lity 892148) Phone: [phone] A/G Ratio (test 0.9 1.2-2.2 Medical Dire ctor: Anthony code = 120744) Uzair Martin Phone: [phone] Bilirubin, Total 0.6 mg/dL 0.0-1.2 Field Project Manager luis e: Anthony (test code = Manda Martin lity 776426) Phone: [phone] Alkaline 145 IU/L 44-121 Medical Directo r: Anthony Phosphatase (test L Darlene, M DFacility code = 530096) AST (SGOT) (test 97 IU/L 0-40 Field Project Manager luis e: Anthony code = 370057) Eugene MontoyaMD carolynYuni hooks Phone: ALT (SGPT) (test 68 IU/L 0-44 Field Project Manager luis e: Anthony code = 958248) Eugene ColonMDYuni hooks Phone: Patient FastingLipid [id number] 18:08:00 Test Item Value Reference Range Interpretation Comments Cholesterol, Total (test 126 mg/dL 100-199 Med ica Director: code = 757966) Anthony Knight Uzair Coloncility Phon e: Triglycerides (test code 72 mg/dL 0-149 Med ica Director: = 207136) Anthony Knight Uzair Coloncility Phon e: HDL Cholesterol (test 46 mg/dL >39 Medica l Director: code = 354196) AnthonyUzair Ramirezcility Phon e: VLDL Cholesterol Ariane 15 mg/dL 5-40 Block Trader: (test code = 055336) Anthony Knight Deborah Colon Phon e: LDL Chol Calc ([facility]) 65 mg/dL 0-99 Block Trader: (test code = 113419) Anthony Knight Uzair Coloncility Phon e: Patient [id number] 18:08:00 Test Item Value Reference Range Interpretation Comments Hep A Ab, Total Positive Negative Medical Dire ctor: Anthony (test code = Eugene MontoyaManda leon lity 479409) Phone: HBsAg Screen Negative Negative Medical Directo r: Anthony (test code = Eugene MontoyaManda leon lity 646753) Phone: Hep B Core Ab, Negative Negative Medical Direc tor: Anthony Tot (test code = MD Treva Martin 006631) Phone: Hep B Surface Ab, See comment Non React milady: Qual (test code = Inconsiste nt with 230521) immunity, less than 10 mIU/mL Reactiv e: Consistent with immunity, great er than 9.9 mIU/mLMedic al Director: Eugenio Montes ty Phone: Hep C Virus Ab 9.9 s/co ratio 0.0-0.9 Negative: < 0.8 (test code = Indeterminate: 0.8 - 304421) 0.9 Positive: > 0.9 . The CDC recomme nds that a positive HCV antibody result be followed up wit h a HCV Nucleic Acid Amplification t est (299236).Effe ctive October 23, 2021 HP5 will be made non-orderable. [facility] offers order code 210804 HAV , HBV, HCV.Field Project Manager luis e: Deborah Montes Phon e: Patient FastingCt, Ng, Trich vag by [id number] 18:08:00 Test Item Value Reference Range Interpretation Comments Chlamydia by TALYA (test Negative Negative Medic al Director: Anthony code = 562799) Uzair Martin ciliaarti Phone: Gonococcus by TALYA (test Negative Negative Medi ariane Director: Anthony code = 981828) Uzair Martinaarti Phone: Trich vag by TALYA (test Negative Negative Medic al Director: Anthony code = 075172) Uzair Martinaarti Phone: Patient LvanvlcL5WQ,Qn,Bld and Red Cell [id number] 18:08:00 Test Item Value Reference Range Interpretation Comments G-6-PD, Quant 278 U/10E12 127-427 When decreased , G-6-PD, (test code = RBC Quant. values a re 318655) associated with acutehemolytic anemia when deficient indiv [...] h ave normal or near-normale nzyme activity. Arlene l values of G-6-PD may be m easured for severalweeks fo llowing a hemolytic event .Block Trader: Kathe Cleary MDFacility Phon e: Patient FastingCD4/CD8 [id number] 15:11:00 Test Item Value Reference Range Interpretation Comments CD4CD8 RATIO (test 0.14 0.92-3.72 A code = [id number]) WBC (test code = 3.5 x10E3/uL 3.4-10.8 WBCLC) LYMPH # (test code = 0.5 x10E3/uL 0.7-3.1 A Perform ed At: HD LYLC#) [facility] [address] [id number] Anthony Knight MD Ph:[phone] PERCENT CD4 HELPER 7.9 % 30.8-58.5 A CELLS (test code = CD4P) ABSOLUTE CD4+ CELLS 40 /uL 359-1519 A (test code = CD4A) % CD8 (SUPPRESSOR 58.4 % 12.0-35.5 A T-CELLS) (test code = CD8P) ABSOLUTE CD8+ CELLS 292 /uL 109-897 (test code = CD8A) Covid 19 InHouse [id number] 13:52:00 Test Item Value Reference Range Interpretation Comments Covid 19 Negative Negative A negative resu lt does not InHouse NTX preclude the SA RS-COV-2 (test code = viralinfection and should not be [id number]) used as the so le basis forpatient barry gement decisions. Negative result s must becombined with clinical o bservations, patient history , andepidemiologi ariane information. Viral levels in clinicalsamples below the detec tion limit of the assay could karen d tonegative results. This t est was performed using the [employer] SmartTM COVID-19 PCRassay. This test was developed and i ts performancechar acteristics were determined by Cynthia brizuela [facility]. Thi s test has notbeen FDA titi ared or approved. This test is au thorized by theFDA under Em ergency Use Authorization(E UA). The EUA willremain in e ffect unless it is terminated o r revoked by FDA . Testing canelo eters have not been validated for screeningasympt omatic patients. This test was v alidated according to e FDA's guidancedocumen t "Policy for Diagnostics nickie ting in LaboratoriesCer tified to Perform High Complexity Testing under CLIA". First test? NoEmployed in Healthcare? NoSymptomatic as defined by CDC? YesDate of Symptom Onset: [id number] due to COVID? NoIn ICU due to COVID? NoResident in a congregate care setting? Unknown? UnknownAge at collection: YRAPID PLASMA [id number] 07:14:00 Test Item Value Reference Range Interpretation Comments RAPID PLASMA REAGIN 1:2 See_Comment A Performe d At: [facility] (test code = RPR) [id number] Anthony Knight MD Ph:[phone] ~~~~~~~~~~~~~~~ ~~~~~~~~~~~~ ~~~~~~~~~~~~~~~ ~~~~~~~REACT MILADY RESULTS ARE VERIFIED BY REPEAT TESTING. SPECIMENS [...] this result as normal/abnormal . COMPREHENSIVE METABOLIC [id number] 03:39:00 Test Item Value Reference Range Interpretation [...] Feb code = ALKP) 2020 CBC W/AUTO [id number] 03:24:00 Test Item Value Reference Range Interpretation [...] 3/uL 0.0-0.20 N - HEPA IMAG INCL [id number] 12:27:00 [facility] : 1970 Sex: MPatient Name: KENRICK MONTES Unit No: [id number] EXAMS: CPT CODE: [id number] HEPA IMAG INCL [place] [address]Aegmokfaqwf: HIDA scan Reason for exam: Cholecystitis Location code: A 1 Comparison: None Discussion: After administration of 5.6 mCi of technetium 99 Mebrofenin, dynamic imaging of the right upper quadrant was performed. There is normal radiotracer uptake in the liver followed by excretion into the biliary system which empties into the duodenum. Later filling of the gallbladder is seen after patient was given 2 mg of morphine intravenously. There is no evidence of biliary obstruction throughout the tract. Impression: Normal HIDA scan. at 1227 Reported and signed by: ANA KHALIL M.D. CC: Chester Montiel MD; Ubaldo Fernandez Jr, MD Technologist: Maria C Mims (N) Trscr Dt/Tm: 06/26/2021 (1227) by:[email or web address] Printed Date/Time: 06/26/2021 (1231) Name: KENRICK MONTES [facility] Phys: Ubaldo Champagne Jr, MD [address] : 1970 Age: 50 Sex: [place] [address] Loc:P.0603 1 Exam Date: 06/26/2021 Status: ADM IN PH: FAX: PAGE 1 Signed ReportCOMPREHENSIVE METABOLIC [id number] 05:32:00 Test Item Value Reference Range Interpretation [...] Feb code = ALKP) 2020 CBC W/AUTO [id number] 05:11:00 Test Item Value Reference Range Interpretation [...] 0.01 x10 3/uL 0.0-0.20 N COMPREHENSIVE METABOLIC [id number] 05:18:00 Test Item Value Reference Range Interpretation [...] Feb code = ALKP) 2020 CBC W/AUTO [id number] 05:13:00 Test Item Value Reference Range Interpretation [...] x10 3/uL 0.0-0.20 N - US ABDOMEN [id number] 00:14:00 [facility] 1970 Sex: MPatient Name: KENRICK MONTES Unit No: [id number] EXAMS: CPT CODE: [id number] US ABDOMEN LTD 41568 Exam: Abdominal Sonogram Location: H 12 History: gallbladder distention, r/o cholecystitis Technique:A real-time transabdominal sonogram of the abdomen was performed. Findings: The gallbladder is empty. The gallbladder wall is slightly thickened. The liver is normal in size, shape and echotexture and m easures 15.3 cm in depth. The intra-and extrahepatic biliary tree is normal. The common bile duct measures 3 mm. The visualized pancreas and right kidney are normal. No nephrolithiasis, perinephric fluid collections or hydronephrosis is seen. The right kidney measures 10.6 x 5.9 x 5.9 cm. No free fluid is found in the abdomen. The visualized aorta and IVC are unremarkable. No incidental abdominal findings are noted. Impression: The gallbladder with a thickened wall may be related to biliary dyskinesia versus a calculus cholecystitis. HIDA scan is recommended. at 0014 Reported and signed by: SHERRON RICARDO M.D. CC: Jens José MD Technologist: JEFFERSON HINTON RDMS (AB) Probe: Trscr Dt/Tm: 06/25/2021 (0014) by:Manjeet Printed Date/Time: 06/25/2021 (0018) Name: KENRICK MONTES [facility] Phys: COGLENNAT - Jens José MD [address] : 1970 Age: 50 Sex: [place] [address] Loc: MARCO 5 Exam Date: 06/24/2021 Status: ADM IN PH: FAX: PAGE 1 Signed Report- CT ABD PELVIS [id number] 22:15:00 [facility] : 1970 Sex: MPatient Name: KENRICK MONTES Unit No: [id number] EXAMS: CPT CODE: [id number] CT ABD PELVIS W/CONT 99539 CT abdomen and pelvis with IV contrast. Indication: Abdominal pain, AIDS Location: R16 Comparison: None Technique: CT images of the abdomen and pelvis were obtained from the diaphragm to the pubicsymphysis after the administration of intravenous contrast contrast. [...] infectious process Peritoneum: No ascites or free air.Pelvis: Bladder wall thickening may reflect cystitis LAD: Multiple retroperitoneal nodes are seen measuring up to 1.1 cm with adjacent induration, nonspecific Skeletal: No acute fracture.. Impression: Nonspecific right basilar density concerning for possible early consolidation and/or atelectasis Gallbladder distention with pericholecystic free fluid, recommend further evaluation ultrasound or HIDA scan Prominent colonic thickening is seen diffusely throughout with thumbprinting fatty replacement and prominent bowel enhancement noted more distally these findings are concerning for an acute on chronic inflammatory or infectious process Bladder wall thickening may reflect cystitis Additional findings as detailed above Name: KENRICK MONTES [facility] Phys: Jens Johnson MD [address] : 1970 Age: 50 Sex: [place] [address] Loc: P.ERS Exam Date: 06/24/2021 Status: REG ER PH: FAX: PAGE 1 Signed Report (CONTINUED) Patient Name: KENRICK MONTES Unit No: [id number] EXAMS: CPT CODE: [id number] CT ABD PELVIS W/CONT 93986 (Continued) Electronic ally Signed by GILBERT WOLF M.D. on 06/24/2021 at 2215 Reported and signed by: VINNY Spangler CC: Jens José MD Technologist: Toya Márquez CTDI: 10.8 DLP: 649.25 Trscr Dt/Tm: 06/24/2021 (2214) by:[email or web address] Printed Date/Time: 06/24/2021 (2218) Name: KENRICK MONTES [facility] Phys: Jens Johnson MD [address] : 1970 Age: 50 Sex: [place] [address] Loc: P.ERS Exam Date: 06/24/2021 Status: REG ER PH: FAX: PAGE 2 Signed ReportCOVID 19 INHOUSE [id number] 20:05:00 Test Item Value Reference Range Interpretation Comments COVID 19 INHOUSE NEGATIVE NEGATIVE Negative re sults, from (test code = patients wit h symptom onset [id number]) beyondfive days , should be treated as pres umptive and confirmationwit h a molecular assay, if neces amara for patientmanageme nt, may be performed. Nega tive results do not ruleout COVID-19 and should not be u sed as the sole basis fort reatment or patient managem ent decisions, includinginfect ion control decisions. Nega tive results should beconsid ered in the context of a pa tient's recent exposure s,history and the presence of clinical signs and sympt omsconsistent with COVID-19. [id number] 19:53:00 Test Item Value Reference Range Interpretation Comments TROPONIN-I (test < 2.5 pg/mL 38.73-80.22 L Please note : Units and code = TROPI) Reference Rang e have changedFeb 3, 2 021 BASIC METABOLIC [id number] 19:51:00 Test Item Value Reference Range Interpretation [...] CA) Reference Range Sep 2020 LIVER FUNCTION [id number] 19:51:00 Test Item Value Reference Range Interpretation [...] = ALKP) Reference Range Sep 2020 LACTIC [id number] 19:45:00 Test Item Value Reference Range Interpretation Comments LACTIC ACID (test code = LACT) 1.30 mmol/L 0.5-2.0 N UA RFLX MICR CULT IF [id number] 19:44:00 Test Item Value Reference Range Interpretation [...] SQU) Indication for culture: Suprapubic PainCBC W/AUTO [id number] 19:40:00 Test Item Value Reference Range Interpretation [...] 3/uL 0.0-0.20 N - XR CHEST 1 [id number] 19:29:00 [facility] : 1970 Sex: MPatient Name: KENRICK MONTES Unit No: [id number] EXAMS: CPT CODE: [id number] XR CHEST 1 V 08040 Exam: AP chest Location: H 12 History: [...] Air Kerma (mGy): Trscr Dt/Tm: 06/24/2021 (1928) by:Manjeet Printed Date/Time: 06/24/2021 (1931) Name: KENRICK MONTES [facility] Phys: Jens Johnson MD [address] : 1970 Age: 50 Sex: [place] [address] Loc: P.ERS Exam Date: 06/24/2021 Status: REG ER PH: FAX: PAGE 1 Signed ReportUA RFLX MICR CULT IF [id number] 12:44:00 Test Item Value Reference Range Interpretation [...] Indication for culture: Suprapubic PainCOVID 19 INHOUSE [id number] 11:00:00 Test Item Value Reference Range Interpretation Comments COVID 19 INHOUSE NEGATIVE NEGATIVE Negative re sults, from AG (test code = patients wit h symptom onset [id number]) beyondfive days , should be treated as pres umptive and confirmationwit h a molecular assay, if neces amara for patientmanageme nt, may be performed. Nega [...] omsconsistent with COVID-19. - CTA CHEST FOR [id number] 10:43:00 [facility] NAJMAKENRICK SORTO Shelia : 1970 Sex: MPatient Name: KENRICK MONTES Unit No: [id number] EXAMS: CPT CODE: [id number] [place] [address] [place] angiogram chest with contrast (PE protocol) [...] Pulmonary arteries: There is adequate opacification of thepulmonary arteries. No filling defects are identified within the pulmonary trunk, main or central segmental pulmonary arteries. No definite filling defects are seen within subsegmental branches. Thoracic aorta: No evidence for aneurysmal dilatation or dissection. Heart: Heart is normal in size. Small p ericardial effusion is present. Mediastinum: Borderline enlarged mediastinal [...] indicate constipation. Remaining visualized intra-abdominal contents are un remarkable. Name: KENRICK MONTES [facility] Phys: Lawrence Tesfaye MD [address] : 1970 Age: 50 Sex: [place] [address] Loc: P.ERS Exam Date: 06/13/2021 Status: REG ER PH: FAX: PAGE 1 Signed Report (CONTINUED) Patient Name: KENRICK MONTES Unit No: [id number] EXAMS: CPT CODE: [id number] [place] [address] (Continued) Bones: Skeletal structures are unremarkable. IMPRESSION: 1. No CT evidence for pulmonary embolism, aortic dissection or aneurysm. 2. Confluent airspace density within the lingula may represent atelectasis versus further pneumonitis. There is also minimal dependent atelectasis in bilateral lower lobes. 3. Prominence of pulmonary vessels which may indicate pulmonary venous hypertension. 4. Splenomegaly. 5. Nodularity of the liver suggesting hepatic cirrhosis. at 1043 Reported and signed by: VIJAYA PEREZ M.D. CC: Lawrence Cannon MD Technologist: Michael Anaya; LOIS CHRISTIANSEN RT(R) CTDI: 61.14 DLP: 320 Trscr Dt/Tm: 06/13/2021 (1043) by:[email or web address] Printed Date/Time: 06/13/2021 (1046) Name: KENRICK MONTES [facility] Phys: Lawrence Tesfaye MD [address] : 1970 Age: 50 [place]: [place] [address] Loc: P.ERS Exam Date: 06/13/2021 Status: REG ER PH: FAX: PAGE 2 Signed ReportCBC W/AUTO [id number] 10:28:00 Test Item Value Reference Range Interpretation [...] 0.01 x10 3/uL 0.0-0.20 N BASIC METABOLIC [id number] 10:06:00 Test Item Value Reference Range Interpretation [...] Reference Ran ge Feb code = BUN) 2021 GLOMERULAR >=60 max >60 Units are FILTRATION [...] AVG 11.04~~~~~~~~~~ ~~~~~~~ ~~~~~~~~~~~~~~~ ~~~~~~~ ~~~~~~~~~~~~~~~ ~~~~~~N [facility] nini Education (KYEP ) Guidelines:~~~~ ~~~~~~~ ~~~~~~~~~~~~~~~ ~~~~~~~ ~~~~~~~~~~~~~~~ ~~~~~~~ ~~~~~ HDL Cholesterol<4 0mg/dL: HDL Cholesterol (Major risk factor for CHD)>60mg/dL: H DL Cholesterol (Ne gative risk factor for CHD)40-59mg/dL: Borderline Risk LDL Cholesterol<1 00mg/dL : Desirable LDL -C zaqmsizpkmtmr36 0-159mg /dL: Borderline High Risk LDL-C cjafruxyauxah17 0-189mg /dL: High risk LDL-C concentration H DL-LDL Cholesterol is affected by a n umber of factors such as smoking, age an d sex.~~~~~~~~~~~ ~~~~~~~ ~~~~~~~~~~~~~~~ ~~~~~~~ ~~~~~~~~~~~~~~~ ~~~~~ [id number] 10:06:00 Test Item Value Reference Range Interpretation Comments LIPASE (test code = 88 U/L 53 H Please n ote: New LIP) Reference Range Sep 2020 - XR CHEST 1 [id number] 09:56:00 [facility] : 1970 Sex: MPatient Name: KENRICK MONTES Unit No: [id number] EXAMS: CPT CODE: [id number] XR CHEST 1 V 14170 Chest Radiograph History: Chest Pain Comparison: None at this time Location: H45 A single frontal view of the chest is submitted. The heart is within normal limits in size. Pulmonary vasculature is unremarkable. There are minimal patchy opacities in the lung bases bilaterally. The bones appear unremarkable. IMPRESSION: There are minimal patchy opacities in the lung bases bilaterally. This could be due to atelectasis or pneumonia. at 0956 Reported and signed by: DEDE FELIX M.D. CC: Lawrence Cannon MD Technologist: Nacho Crocker Fluoro Time: DAP (Gy m2): Air Kerma (mGy): Trscr Dt/Tm: 06/13/2021 (0956) by:ManjeetPMT Printed Date/Time: 06/13/2021 (0941) Name: KENRICK MONTES [facility] Phys: Lawrence Tesfaye MD [address] : 1970 Age: 50 Sex: [place] [address] Loc: P.ERS Exam Date: 06/13/2021 Status: REG ER PH: FAX: PAGE 1 Signed ReportB-TYPE NATRIURETIC [id number] 09:36:00 Test Item Value Reference Range Interpretation Comments B-TYPE NATRIURETIC PEPTIDE (test 24 pg/mL <100 N code = BNP) [id number] 09:36:00 Test Item Value Reference Range Interpretation Comments TROPONIN-I (test < 2.5 pg/mL 38.73-80.22 L Please note : Units and code = TROPI) Reference Rang e have changedFeb 3, 2 021 LACTIC [id number] 09:32:00 Test Item Value Reference Range Interpretation Comments LACTIC ACID (test code = LACT) 0.90 mmol/L 0.5-2.0 N Treponema pallidum particle agglutination assay (TPPA test)2021-04-03 16:26:00 Test Item Value Reference Range Interpretation Comments Treponema pallidum particle Reactive Non Reactive A agglutination assay (TPPA test) (test code = 32257-0) [facility] plasma reagin antibody, [id number] 16:26:00 Test Item Value Reference Range Interpretation Comments rapid plasma reagin 1:2 See_Comment H [Automa robert message] The antibody, serum (test system which generated code = 5291-0) this result t ransmitted reference range : NonRea<1:1. The reference range was not u sed to interpret this result as normal/abnormal . [facility]HIV-[facility]RNA, serum, by PCR, [id number] 16:26:00 Test Item Value Reference Range Interpretation Comments HIV-1RNA, serum, by PCR, 92762 /mL quantitative (test code = 26056) [facility] HospitalLDL cholesterol, [id number] 16:26:00 Test Item Value Reference Range Interpretation Comments LDL cholesterol, serum (test code = 70 mg/dL 0-99 2088-1) [facility] Hospitalvery low density [id number] 16:26:00 Test Item Value Reference Range Interpretation Comments very low density lipoproteins (test 23 mg/dL 5-40 code = 2090-7) [facility] HospitalHDL cholesterol, [id number] 16:26:00 Test Item Value Reference Range Interpretation Comments HDL cholesterol, serum (test code = 32 mg/dL >39 L 2084-) [facility] Hospitaltriglyceride, serum, [id number] 16:26:00 Test Item Value Reference Range Interpretation Comments triglyceride, serum, fasting (test 125 mg/dL 0-149 code = 2571-8) [facility] Hospitalcholesterol, [id number] 16:26:00 Test Item Value Reference Range Interpretation Comments cholesterol, serum (test code = 125 mg/dL 230-913 9370-3) [facility] Hospitalalanine aminotransferase (SGPT), [id number] 16:26:00 Test Item Value Reference Range Interpretation Comments alanine aminotransferase (SGPT), serum 99 1/L 0-44 H (test code = 1742-6) [facility] Hospitalaspartate aminotransferase (SGOT), [id number] 16:26:00 Test Item Value Reference Range Interpretation Comments aspartate aminotransferase (SGOT), 118 1/L 0-40 H serum (test code = 1920-8) [facility] Hospitalalkaline phosphatase, [id number] 16:26:00 Test Item Value Reference Range Interpretation Comments alkaline phosphatase, serum (test 151 1/L 48-121 H code = 1783-0) [facility] Hospitalbilirubin, serum, [id number] 16:26:00 Test Item Value Reference Range Interpretation Comments bilirubin, serum, total (test code 0.5 mg/dL 0.0-1.2 = 1975-2) [facility] Healthalbumin/globulin ratio, [id number] 16:26:00 Test Item Value Reference Range Interpretation Comments albumin/globulin ratio, 0.9 (unknown unit) 1.2-2.2 L serum (test code = 1759-0) [facility] Healthglobulin, [id number] 16:26:00 Test Item Value Reference Range Interpretation Comments globulin, serum (test code 4.0 (unknown unit) 1.5-4.5 = 2336-6) [facility] Healthalbumin, [id number] 16:26:00 Test Item Value Reference Range Interpretation Comments albumin, serum (test code = 1751-7) 3.4 g/dL 4.0-5.0 L [facility] Hospitalprotein, total, [id number] 16:26:00 Test Item Value Reference Range Interpretation Comments protein, total, serum (test code = 7.4 g/dL 6.0-8.5 2885-2) [facility] Hospitalcalcium, [id number] 16:26:00 Test Item Value Reference Range Interpretation Comments calcium, serum (test code = 1999-8) 8.7 mg/dL 8.7-10.2 [facility] Hospitalcarbon dioxide, venous [id number] 16:26:00 Test Item Value Reference Range Interpretation Comments carbon dioxide, venous blood (test 23 mmol/L code = 7-1) [facility] Hospitalchloride, [id number] 16:26:00 Test Item Value Reference Range Interpretation Comments chloride, serum (test code = 103 mmol/L 96-106 5-0) [facility] Hospitalpotassium, [id number] 16:26:00 Test Item Value Reference Range Interpretation Comments potassium, serum (test code = 3.8 mmol/L 3.5-5.2 2823-3) [facility] Hospitalsodium, [id number] 16:26:00 Test Item Value Reference Range Interpretation Comments sodium, serum (test code = 2951-2) 138 mmol/L 134-144 [facility] Hospitalurea nitrogen/creatinine ratio, [id number] 16:26:00 Test Item Value Reference Range Interpretation Comments urea nitrogen/creatinine 12 (unknown unit) 9-20 ratio, serum (test code = 3097-3) [facility] HealtheGFR if Tixvzexi5939-11-17 16:26:00 Test Item Value Reference Range Interpretation Comments eGFR if 120 mL/min/{1.73 m2} >59 (test code = 17004-5) [facility] HospitalEstimated Glomerular Filtration Rate (calc)2021-04-03 16:26:00 Test Item Value Reference Range Interpretation Comments Estimated Glomerular 104 mL/min/{1.73 m2} >59 Filtration Rate (calc) (test code = 92476-5) [facility] Hospitalcreatinine, [id number] 16:26:00 Test Item Value Reference Range Interpretation Comments creatinine, serum (test code = 0.81 mg/dL 0.76-1.27 2160-0) [facility] Hospitalurea nitrogen, [id number] 16:26:00 Test Item Value Reference Range Interpretation Comments urea nitrogen, blood (test code = 10 mg/dL 02-02 3094-0) [facility] Hospitalblood glucose, [id number] 16:26:00 Test Item Value Reference Range Interpretation Comments blood glucose, random (test code = 88 mg/dL 65-99 2339-0) [facility] Hospitalimmature granulocytes, percentage of total cells, blood 2021-04-03 16:26:00 Test Item Value Reference Range Interpretation Comments immature granulocytes, percentage of 0 % total cells, blood (test code = 61715-1) [facility] Hospitalbasophil count, gbmbfzzg4260-51-90 16:26:00 Test Item Value Reference Range Interpretation Comments basophil count, absolute (test 0.0 x10E3/uL 0.0-0.2 code = 82618-4) [facility] HospitalEosinophil Absolute [id number] 16:26:00 Test Item Value Reference Range Interpretation Comments Eosinophil Absolute Count (test 0.2 X10E3/UL 0.0-0.4 code = 16527-3) [facility] Hospitalmonocyte count, blood, nnhvxvksv8698-55-20 16:26:00 Test Item Value Reference Range Interpretation Comments monocyte count, blood, automated 0.3 X10E3/UL 0.1-0.9 (test code = 742-7) [facility] Hospitallymphocyte count, blood, cuonigyut0356-80-69 16:26:00 Test Item Value Reference Range Interpretation Comments lymphocyte count, blood, 0.6 X10E3/UL 0.7-3.1 L automated (test code = 731-0) [facility] HospitalAbsolute Tpsbblrlhpk3439-77-30 16:26:00 Test Item Value Reference Range Interpretation Comments Absolute Neutrophils (test code 1.1 X10E3/UL 1.4-7.0 L = 38503-3) [facility] Healthbasophils as percent of blood zxsjjbcryc9616-86-09 16:26:00 Test Item Value Reference Range Interpretation Comments basophils as percent of blood 1 % leukocytes (test code = 707-0) [facility] Hospitaleosinophils as percent of blood mgooaipceo4137-18-54 16:26:00 Test Item Value Reference Range Interpretation Comments eosinophils as percent of blood 9 % leukocytes (test code = 713-8) [facility] Hospitalmonocytes as percent of blood fsboklotlw3806-32-49 16:26:00 Test Item Value Reference Range Interpretation Comments monocytes as percent of blood 14 % leukocytes (test code = 5905-5) [facility] Hospitallymphocytes as percent of blood nylgiuqndk1237-99-76 16:26:00 Test Item Value Reference Range Interpretation Comments lymphocytes as percent of blood 28 % leukocytes (test code = 736-9) [facility] Hospitalneutrophils as percent of blood swlnldyvby6376-11-86 16:26:00 Test Item Value Reference Range Interpretation Comments neutrophils as percent of blood 48 % leukocytes (test code = 770-8) [facility] Hospitalplatelet [id number] 16:26:00 Test Item Value Reference Range Interpretation Comments platelet count (test code = 66 X10E3/UL 150-450 LL 777-3) [facility] Hospitalred blood cell distribution [id number] 16:26:00 Test Item Value Reference Range Interpretation Comments red blood cell distribution width 13.3 % 11.6-15.4 (test code = 788-0) [facility] Hospitalmean corpuscular hemoglobin concentration, [id number] 16:26:00 Test Item Value Reference Range Interpretation Comments mean corpuscular hemoglobin 35.1 G/DL 31.5-35.7 concentration, RBC (test code = 786-4) [facility] Hospitalmean corpuscular hemoglobin, [id number] 16:26:00 Test Item Value Reference Range Interpretation Comments mean corpuscular hemoglobin, RBC 31.9 pg 26.6-33.0 (test code = 785-6) [facility] Hospitalmean corpuscular volume, [id number] 16:26:00 Test Item Value Reference Range Interpretation Comments mean corpuscular volume, RBC (test code 91 fL 79-97 = 787-2) [facility] Hospitalhematocrit, [id number] 16:26:00 Test Item Value Reference Range Interpretation Comments hematocrit, blood (test code = 4544-3) 36.7 % 37.5-51.0 L [facility] Hospitalhemoglobin, [id number] 16:26:00 Test Item Value Reference Range Interpretation Comments hemoglobin, blood (test code = 12.9 g/dL 13.0-17.7 L 718-7) [facility] Hospitalerythrocyte (RBC) [id number] 16:26:00 Test Item Value Reference Range Interpretation Comments erythrocyte (RBC) count (test 4.04 X10E6/UL 4.14-5.80 L code = 789-8) [facility] Hospitalleukocyte count, [id number] 16:26:00 Test Item Value Reference Range Interpretation Comments leukocyte count, blood (test 2.2 X10E3/UL 3.4-10.8 LL code = 6690-2) [facility] HospitalCD4/CD8 [id number] 16:26:00 Test Item Value Reference Range Interpretation Comments CD4/CD8 ratio (test code 0.14 (unknown unit) 0.92-3.72 L = 31516) [facility] HospitalT-suppressor cells (CD8) as percent of blood lymphocytes 2021-04-03 16:26:00 Test Item Value Reference Range Interpretation Comments T-suppressor cells (CD8) as percent of 53.1 % 12.0-35.5 H blood lymphocytes (test code = 3517) [facility] Hospitalabsolute [id number] 16:26:00 Test Item Value Reference Range Interpretation Comments absolute CD8 (test code = 319 (unknown unit) 272-196 26285) [facility] HospitalT-helper cells (CD4) as percent of blood lymphocytes 2021-04-03 16:26:00 Test Item Value Reference Range Interpretation Comments T-helper cells (CD4) as percent of 7.3 % 30.8-58.5 L blood lymphocytes (test code = 8123-2) [facility] HospitalT-helper cells (CD4) [id number] 16:26:00 Test Item Value Reference Range Interpretation Comments T-helper cells (CD4) count (test code 44 /UL 359-1519 L = 05740-6) [facility] HospitalHIV-1RNA, serum, by PCR, [id number] 16:26:00 Test Item Value Reference Range Interpretation Comments HIV-1RNA, serum, by PCR, 31541 /mL quantitative (test code = 75143-2) [facility] HospitalCD4/CD8 [id number] 16:26:00 Test Item Value Reference Range Interpretation Comments CD4/CD8 ratio (test code 0.14 (unknown unit) 0.92-3.72 L = 13799) [facility] HospitalT-suppressor cells (CD8) as percent of blood lymphocytes 2021-04-03 16:26:00 Test Item Value Reference Range Interpretation Comments T-suppressor cells (CD8) as percent of 53.1 % 12.0-35.5 H blood lymphocytes (test code = 3517) [facility] Hospitalabsolute [id number] 16:26:00 Test Item Value Reference Range Interpretation Comments absolute CD8 (test code = 319 (unknown unit) 577-678 79949) [facility] HospitalTreponema pallidum particle agglutination assay (TPPA test)2020-11-17 11:15:00 Test Item Value Reference Range Interpretation Comments Treponema pallidum particle Reactive Non Reactive A agglutination assay (TPPA test) (test code = 82309-2) [facility] Hospitalrapid plasma reagin antibody, [id number] 11:15:00 Test Item Value Reference Range Interpretation Comments rapid plasma reagin 1:2 See_Comment H [Automa robert message] The antibody, serum (test system which generated code = 5291-0) this result t ransmitted reference range : NonRea<1:1. The reference range was not u sed to interpret this result as normal/abnormal . [facility]HIV-1RNA, serum, by PCR, pzxfjdtbdfwe8075-52-41 11:15:00 Test Item Value Reference Range Interpretation Comments HIV-1RNA, serum, by PCR, 029168 /mL quantitative (test code = 65748) [facility] Hospitalalanine aminotransferase (SGPT), [id number] 11:15:00 Test Item Value Reference Range Interpretation Comments alanine aminotransferase (SGPT), serum 99 1/L 0-44 H (test code = 1742-6) [facility] Hospitalaspartate aminotransferase (SGOT), [id number] 11:15:00 Test Item Value Reference Range Interpretation Comments aspartate aminotransferase (SGOT), 106 1/L 0-40 H serum (test code = 1920-8) [facility] Hospitalalkaline phosphatase, xdfmb1861-11-07 11:15:00 Test Item Value Reference Range Interpretation Comments alkaline phosphatase, serum (test 131 1/L 39-117 H code = 1783-0) [facility] Hospitalbilirubin, serum, [id number] 11:15:00 Test Item Value Reference Range Interpretation Comments bilirubin, serum, total (test code 0.4 mg/dL 0.0-1.2 = 1975-2) [facility] Hospitalalbumin/globulin ratio, ttcje2599-97-45 11:15:00 Test Item Value Reference Range Interpretation Comments albumin/globulin ratio, 0.8 (unknown unit) 1.2-2.2 L serum (test code = 1759-0) [facility] Hospitalglobulin, [id number] 11:15:00 Test Item Value Reference Range Interpretation Comments globulin, serum (test code 4.0 (unknown unit) 1.5-4.5 = 2336-6) [facility] Hospitalalbumin, [id number] 11:15:00 Test Item Value Reference Range Interpretation Comments albumin, serum (test code = 1751-7) 3.3 g/dL 4.0-5.0 L [facility] Hospitalprotein, total, [id number] 11:15:00 Test Item Value Reference Range Interpretation Comments protein, total, serum (test code = 7.3 g/dL 6.0-8.5 2885-2) [facility] Hospitalcalcium, dlioi8549-74-55 11:15:00 Test Item Value Reference Range Interpretation Comments calcium, serum (test code = 1999-8) 8.4 mg/dL 8.7-10.2 L [facility] Hospitalcarbon dioxide, venous fykya5743-51-73 11:15:00 Test Item Value Reference Range Interpretation Comments carbon dioxide, venous blood (test 24 mmol/L 20-29 code = 7-1) [facility] Healthchloride, fwrlb0494-15-14 11:15:00 Test Item Value Reference Range Interpretation Comments chloride, serum (test code = 104 mmol/L 96-106 5-0) [facility] Hospitalpotassium, vemfy1250-96-23 11:15:00 Test Item Value Reference Range Interpretation Comments potassium, serum (test code = 4.3 mmol/L 3.5-5.2 2823-3) [facility] Hospitalsodium, kwmav2887-64-47 11:15:00 Test Item Value Reference Range Interpretation Comments sodium, serum (test code = 2951-2) 138 mmol/L 134-144 [facility] Hospitalurea nitrogen/creatinine ratio, rhhsa3134-42-76 11:15:00 Test Item Value Reference Range Interpretation Comments urea nitrogen/creatinine 15 (unknown unit) 9-20 ratio, serum (test code = 3097-3) [facility] HealtheGFR if Iqhfqdiu0468-77-30 11:15:00 Test Item Value Reference Range Interpretation Comments eGFR if 121 mL/min/{1.73 m2} >59 (test code = 15174-2) [facility] HospitalEstimated Glomerular Filtration Rate (calc)2020-11-17 11:15:00 Test Item Value Reference Range Interpretation Comments Estimated Glomerular 105 mL/min/{1.73 m2} >59 Filtration Rate (calc) (test code = 99474-1) [facility] Hospitalcreatinine, [id number] 11:15:00 Test Item Value Reference Range Interpretation Comments creatinine, serum (test code = 0.79 mg/dL 0.76-1.27 0-0) [facility] Hospitalurea nitrogen, xeclw9665-87-83 11:15:00 Test Item Value Reference Range Interpretation Comments urea nitrogen, blood (test code = 12 mg/dL 6-24 3094-0) [facility] Hospitalblood glucose, [id number] 11:15:00 Test Item Value Reference Range Interpretation Comments blood glucose, random (test code = 84 mg/dL 65-99 2339-0) [facility] Healthbasophil count, [id number] 11:15:00 Test Item Value Reference Range Interpretation Comments basophil count, absolute (test 0.0 x10E3/uL 0.0-0.2 code = 45340-1) [facility] HealthEosinophil Absolute [id number] 11:15:00 Test Item Value Reference Range Interpretation Comments Eosinophil Absolute Count (test 0.1 X10E3/UL 0.0-0.4 code = 14489-0) [facility] Hospitalmonocyte count, blood, ttymxpwyb8955-08-81 11:15:00 Test Item Value Reference Range Interpretation Comments monocyte count, blood, automated 0.4 X10E3/UL 0.1-0.9 (test code = 742-7) [facility] Hospitallymphocyte count, blood, zyqwtkzyr8385-78-77 11:15:00 Test Item Value Reference Range Interpretation Comments lymphocyte count, blood, 0.5 X10E3/UL 0.7-3.1 L automated (test code = 731-0) [facility] HospitalAbsolute Puieizcobqv0286-41-47 11:15:00 Test Item Value Reference Range Interpretation Comments Absolute Neutrophils (test code 1.3 X10E3/UL 1.4-7.0 L = 35776-9) [facility] Hospitalbasophils as percent of blood qmspgrfnws7269-39-79 11:15:00 Test Item Value Reference Range Interpretation Comments basophils as percent of blood 1 % leukocytes (test code = 707-0) [facility] Healtheosinophils as percent of blood yxxvifbslt2386-75-87 11:15:00 Test Item Value Reference Range Interpretation Comments eosinophils as percent of blood 5 % leukocytes (test code = 713-8) [facility] Healthmonocytes as percent of blood sniayhrunq7640-18-65 11:15:00 Test Item Value Reference Range Interpretation Comments monocytes as percent of blood 18 % leukocytes (test code = 5905-5) [facility] Hospitallymphocytes as percent of blood mgvpjqzdav1301-14-09 11:15:00 Test Item Value Reference Range Interpretation Comments lymphocytes as percent of blood 21 % leukocytes (test code = 736-9) [facility] Hospitalneutrophils as percent of blood lslliwwyho0954-92-15 11:15:00 Test Item Value Reference Range Interpretation Comments neutrophils as percent of blood 41 % leukocytes (test code = 770-8) [facility] Hospitalplatelet [id number] 11:15:00 Test Item Value Reference Range Interpretation Comments platelet count (test code = 64 X10E3/UL 150-450 LL 777-3) [facility] Hospitalred blood cell distribution botqh8198-11-37 11:15:00 Test Item Value Reference Range Interpretation Comments red blood cell distribution width 13.0 % 11.6-15.4 (test code = 788-0) [facility] corpuscular hemoglobin concentration, [id number] 11:15:00 Test Item Value Reference Range Interpretation Comments mean corpuscular hemoglobin 34.1 G/DL 31.5-35.7 concentration, RBC (test code = 786-4) [facility] corpuscular hemoglobin, [id number] 11:15:00 Test Item Value Reference Range Interpretation Comments mean corpuscular hemoglobin, RBC 31.1 pg 26.6-33.0 (test code = 785-6) [facility] corpuscular volume, [id number] 11:15:00 Test Item Value Reference Range Interpretation Comments mean corpuscular volume, RBC (test code 91 fL 79-97 = 787-2) [facility] Hospitalhematocrit, ixewo6143-47-71 11:15:00 Test Item Value Reference Range Interpretation Comments hematocrit, blood (test code = 4544-3) 39.0 % 37.5-51.0 [facility] Hospitalhemoglobin, zdtue7882-19-16 11:15:00 Test Item Value Reference Range Interpretation Comments hemoglobin, blood (test code = 13.3 g/dL 13.0-17.7 718-7) [facility] Hospitalerythrocyte (RBC) vbvkc9647-99-86 11:15:00 Test Item Value Reference Range Interpretation Comments erythrocyte (RBC) count (test 4.28 X10E6/UL 4.14-5.80 code = 789-8) [facility] Hospitalleukocyte count, geset2402-55-55 11:15:00 Test Item Value Reference Range Interpretation Comments leukocyte count, blood (test 2.4 X10E3/UL 3.4-10.8 LL code = 6690-2) [facility] HospitalCD4/CD8 xlshz1565-13-07 11:15:00 Test Item Value Reference Range Interpretation Comments CD4/CD8 ratio (test code 0.17 (unknown unit) 0.92-3.72 L = 47395) [facility] HospitalT-suppressor cells (CD8) as percent of blood lymphocytes 2020-11-17 11:15:00 Test Item Value Reference Range Interpretation Comments T-suppressor cells (CD8) as percent of 50.9 % 12.0-35.5 H blood lymphocytes (test code = 3517) [facility] Hospitalabsolute [id number] 11:15:00 Test Item Value Reference Range Interpretation Comments absolute CD8 (test code = 255 (unknown unit) 109-556 64625) [facility] HospitalT-helper cells (CD4) as percent of blood lymphocytes 2020-11-17 11:15:00 Test Item Value Reference Range Interpretation Comments T-helper cells (CD4) as percent of 8.6 % 30.8-58.5 L blood lymphocytes (test code = 8123-2) [facility] HospitalT-helper cells (CD4) jjuym6475-21-50 11:15:00 Test Item Value Reference Range Interpretation Comments T-helper cells (CD4) count (test code 43 /UL 359-1519 L = 99738-4) [facility] HospitalHIV-1RNA, serum, by PCR, gfqsrdzitret8299-79-66 11:15:00 Test Item Value Reference Range Interpretation Comments HIV-1RNA, serum, by PCR, 578810 /mL quantitative (test code = 56301-0) [facility] HospitalCD4/CD8 aatum7919-23-74 11:15:00 Test Item Value Reference Range Interpretation Comments CD4/CD8 ratio (test code 0.17 (unknown unit) 0.92-3.72 L = 98831) [facility] HospitalT-suppressor cells (CD8) as percent of blood lymphocytes 2020-11-17 11:15:00 Test Item Value Reference Range Interpretation Comments T-suppressor cells (CD8) as percent of 50.9 % 12.0-35.5 H blood lymphocytes (test code = 3517) [facility] Hospitalabsolute [id number] 11:15:00 Test Item Value Reference Range Interpretation Comments absolute CD8 (test code = 255 (unknown unit) [phone]) [facility] Hospitalhepatitis C antibody, sguaq0833-04-18 14:08:00 Test Item Value Reference Range Interpretation Comments hepatitis C antibody, serum (test code >11.0 0.0-0.9 H = 5199-5) [facility] HospitalTreponema pallidum particle agglutination assay (TPPA test)2020-08-15 14:08:00 Test Item Value Reference Range Interpretation Comments Treponema pallidum particle Reactive Non Reactive A agglutination assay (TPPA test) (test code = 74533-8) [facility] Hospitalrapid plasma reagin antibody, blaks5174-12-56 14:08:00 Test Item Value Reference Range Interpretation Comments rapid plasma reagin 1:2 See_Comment H [Automa robert message] The antibody, serum (test system which generated code = 5291-0) this result t ransmitted reference range : NonRea<1:1. The reference range was not u sed to interpret this result as normal/abnormal . [facility] HospitalNeisseria gonorrhoeae DNA jklrn1615-22-05 14:08:00 Test Item Value Reference Range Interpretation Comments Neisseria gonorrhoeae DNA probe Negative Negative (test code = 81729-9) [facility] Hospitalchlamydia DNA yseif4595-95-16 14:08:00 Test Item Value Reference Range Interpretation Comments chlamydia DNA probe (test code = Negative Negative 72656-5) [facility] HospitalLDL cholesterol, aesgn3853-12-62 14:08:00 Test Item Value Reference Range Interpretation Comments LDL cholesterol, serum (test code = 80 mg/dL 0-99 2088-1) [facility] Hospitalvery low density cbsdgmzxflvs3966-28-48 14:08:00 Test Item Value Reference Range Interpretation Comments very low density lipoproteins (test 34 mg/dL 5-40 code = 2091-7) [facility] HospitalHDL cholesterol, eawbk0393-10-82 14:08:00 Test Item Value Reference Range Interpretation Comments HDL cholesterol, serum (test code = 38 mg/dL >39 L 5-9) [facility] Hospitaltriglyceride, serum, dbqztjb7619-46-45 14:08:00 Test Item Value Reference Range Interpretation Comments triglyceride, serum, fasting (test 199 mg/dL 0-149 H code = 2571-8) [facility] Hospitalcholesterol, mydrk1175-55-63 14:08:00 Test Item Value Reference Range Interpretation Comments cholesterol, serum (test code = 152 mg/dL 568-821 5914-3) [facility] Hospitalalanine aminotransferase (SGPT), fsdog1941-11-13 14:08:00 Test Item Value Reference Range Interpretation Comments alanine aminotransferase (SGPT), 115 1/L 0-44 H serum (test code = 1742-6) [facility] Hospitalaspartate aminotransferase (SGOT), vviya7847-42-82 14:08:00 Test Item Value Reference Range Interpretation Comments aspartate aminotransferase (SGOT), 112 1/L 0-40 H serum (test code = 1920-8) [facility] Hospitalalkaline phosphatase, tcoon1551-95-29 14:08:00 Test Item Value Reference Range Interpretation Comments alkaline phosphatase, serum (test 159 1/L 39-117 H code = 1783-0) [facility] Hospitalbilirubin, serum, pbxvd5656-90-31 14:08:00 Test Item Value Reference Range Interpretation Comments bilirubin, serum, total (test code 0.3 mg/dL 0.0-1.2 = 1975-2) [facility] Hospitalalbumin/globulin ratio, yxvfh3509-45-57 14:08:00 Test Item Value Reference Range Interpretation Comments albumin/globulin ratio, 0.9 (unknown unit) 1.2-2.2 L serum (test code = 1759-0) [facility] Healthglobulin, xyquj0541-61-70 14:08:00 Test Item Value Reference Range Interpretation Comments globulin, serum (test code 3.7 (unknown unit) 1.5-4.5 = 2336-6) [facility] Hospitalalbumin, [id number] 14:08:00 Test Item Value Reference Range Interpretation Comments albumin, serum (test code = 1751-7) 3.2 g/dL 4.0-5.0 L [facility] Hospitalprotein, total, rqlyx4907-56-00 14:08:00 Test Item Value Reference Range Interpretation Comments protein, total, serum (test code = 6.9 g/dL 6.0-8.5 2885-2) [facility] Hospitalcalcium, xaqrh7869-87-87 14:08:00 Test Item Value Reference Range Interpretation Comments calcium, serum (test code = 2000-03) 8.6 mg/dL 8.7-10.2 L [facility] Hospitalcarbon dioxide, venous ajofn6054-07-28 14:08:00 Test Item Value Reference Range Interpretation Comments carbon dioxide, venous blood (test 25 mmol/L -29 code = 7-1) [facility] Hospitalchloride, efbyf7909-29-71 14:08:00 Test Item Value Reference Range Interpretation Comments chloride, serum (test code = 106 mmol/L 96-106 2075-0) [facility] Hospitalpotassium, tjely1394-31-81 14:08:00 Test Item Value Reference Range Interpretation Comments potassium, serum (test code = 4.2 mmol/L 3.5-5.2 2823-3) [facility] Hospitalsodium, [id number] 14:08:00 Test Item Value Reference Range Interpretation Comments sodium, serum (test code = 2951-2) 139 mmol/L 134-144 [facility] Hospitalurea nitrogen/creatinine ratio, jtuas8774-87-35 14:08:00 Test Item Value Reference Range Interpretation Comments urea nitrogen/creatinine 15 (unknown unit) 9-20 ratio, serum (test code = 3097-3) [facility] HealtheGFR if Qmfrgznc3624-22-72 14:08:00 Test Item Value Reference Range Interpretation Comments eGFR if 130 mL/min/{1.73 m2} >59 (test code = 30414-3) [facility] HospitalEstimated Glomerular Filtration Rate (calc)2020-08-15 14:08:00 Test Item Value Reference Range Interpretation Comments Estimated Glomerular 112 mL/min/{1.73 m2} >59 Filtration Rate (calc) (test code = 36389-3) [facility] Hospitalcreatinine, lqkza2072-32-88 14:08:00 Test Item Value Reference Range Interpretation Comments creatinine, serum (test code = 0.68 mg/dL 0.76-1.27 L 2160-0) [facility] Healthurea nitrogen, fclns2075-53-73 14:08:00 Test Item Value Reference Range Interpretation Comments urea nitrogen, blood (test code = 10 mg/dL 6-24 3094-0) [facility] Hospitalblood glucose, othvmb3043-09-46 14:08:00 Test Item Value Reference Range Interpretation Comments blood glucose, random (test code = 79 mg/dL 65-99 2339-0) [facility] Hospitalbasophil count, waxslkqn4106-27-83 14:08:00 Test Item Value Reference Range Interpretation Comments basophil count, absolute (test 0.0 x10E3/uL 0.0-0.2 code = 46023-9) [facility] HealthEosinophil Absolute Atwli7636-40-33 14:08:00 Test Item Value Reference Range Interpretation Comments Eosinophil Absolute Count (test 0.1 X10E3/UL 0.0-0.4 code = 04110-1) [facility] Hospitalmonocyte count, blood, alurvblcs2090-65-02 14:08:00 Test Item Value Reference Range Interpretation Comments monocyte count, blood, automated 0.4 X10E3/UL 0.1-0.9 (test code = 742-7) [facility] Hospitallymphocyte count, blood, bwnqpnbnv1930-74-16 14:08:00 Test Item Value Reference Range Interpretation Comments lymphocyte count, blood, 0.6 X10E3/UL 0.7-3.1 L automated (test code = 731-0) [facility] HospitalAbsolute Rcacecjmljw0754-15-72 14:08:00 Test Item Value Reference Range Interpretation Comments Absolute Neutrophils (test code 1.8 X10E3/UL 1.4-7.0 = 25940-5) [facility] Hospitalbasophils as percent of blood ewgvhzodaj7603-92-02 14:08:00 Test Item Value Reference Range Interpretation Comments basophils as percent of blood 0 % leukocytes (test code = 707-0) [facility] Hospitaleosinophils as percent of blood nwkfcugfzb1347-81-36 14:08:00 Test Item Value Reference Range Interpretation Comments eosinophils as percent of blood 4 % leukocytes (test code = 713-8) [facility] Healthmonocytes as percent of blood dimowycjib9954-25-74 14:08:00 Test Item Value Reference Range Interpretation Comments monocytes as percent of blood 13 % leukocytes (test code = 5905-5) [facility] Hospitallymphocytes as percent of blood unfatlxzum7799-95-69 14:08:00 Test Item Value Reference Range Interpretation Comments lymphocytes as percent of blood 20 % leukocytes (test code = 736-9) [facility] Hospitalneutrophils as percent of blood evbyovwxre2570-10-65 14:08:00 Test Item Value Reference Range Interpretation Comments neutrophils as percent of blood 59 % leukocytes (test code = 770-8) [facility] Hospitalplatelet kaeee4174-77-04 14:08:00 Test Item Value Reference Range Interpretation Comments platelet count (test code = 73 X10E3/UL 150-450 LL 777-3) [facility] Hospitalred blood cell distribution qlicj1074-21-51 14:08:00 Test Item Value Reference Range Interpretation Comments red blood cell distribution width 12.7 % 11.6-15.4 (test code = 788-0) [facility] corpuscular hemoglobin concentration, [id number] 14:08:00 Test Item Value Reference Range Interpretation Comments mean corpuscular hemoglobin 34.5 G/DL 31.5-35.7 concentration, RBC (test code = 786-4) [facility] corpuscular hemoglobin, [id number] 14:08:00 Test Item Value Reference Range Interpretation Comments mean corpuscular hemoglobin, RBC 31.4 pg 26.6-33.0 (test code = 785-6) [facility] corpuscular volume, [id number] 14:08:00 Test Item Value Reference Range Interpretation Comments mean corpuscular volume, RBC (test code 91 fL 79-97 = 787-2) [facility] Hospitalhematocrit, vgsne8136-06-72 14:08:00 Test Item Value Reference Range Interpretation Comments hematocrit, blood (test code = 4544-3) 38.8 % 37.5-51.0 [facility] Hospitalhemoglobin, xosvz3318-48-67 14:08:00 Test Item Value Reference Range Interpretation Comments hemoglobin, blood (test code = 13.4 g/dL 13.0-17.7 718-7) [facility] Hospitalerythrocyte (RBC) iqvti7273-96-81 14:08:00 Test Item Value Reference Range Interpretation Comments erythrocyte (RBC) count (test 4.27 X10E6/UL 4.14-5.80 code = 789-8) [facility] Hospitalleukocyte count, tsrau4340-01-06 14:08:00 Test Item Value Reference Range Interpretation Comments leukocyte count, blood (test 2.9 X10E3/UL 3.4-10.8 L code = 6690-2) [facility] HospitalT-helper cells (CD4) as percent of blood lymphocytes 2020-08-15 14:08:00 Test Item Value Reference Range Interpretation Comments T-helper cells (CD4) as percent of 6.2 % 30.8-58.5 L blood lymphocytes (test code = 8123-2) [facility] HospitalT-helper cells (CD4) ijibk3964-75-66 14:08:00 Test Item Value Reference Range Interpretation Comments T-helper cells (CD4) count (test code 37 /UL 359-1519 L = 09853-2) [facility] Hospitalhepatitis B surface mxbjzlj8575-96-85 14:08:00 Test Item Value Reference Range Interpretation Comments hepatitis B surface antigen (test Negative Negative code = 47292-5) [facility] HospitalHIV-1RNA, serum, by PCR, jnjlrzmupiqp8443-95-04 14:08:00 Test Item Value Reference Range Interpretation Comments HIV-1RNA, serum, by PCR, 820982 /mL quantitative (test code = 74466-9) [facility] HospitalCD4/CD8 hugol0084-38-46 14:08:00 Test Item Value Reference Range Interpretation Comments CD4/CD8 ratio (test code 0.11 (unknown unit) 0.92-3.72 L = 44754) [facility] HospitalT-suppressor cells (CD8) as percent of blood lymphocytes 2020-08-15 14:08:00 Test Item Value Reference Range Interpretation Comments T-suppressor cells (CD8) as percent of 58.8 % 12.0-35.5 H blood lymphocytes (test code = 3517) [facility] Hospitalabsolute [id number] 14:08:00 Test Item Value Reference Range Interpretation Comments absolute CD8 (test code = 353 (unknown unit) 109897 43545) [facility] HospitalNeisseria gonorrhoeae DNA vqins9759-45-69 14:08:00 Test Item Value Reference Range Interpretation Comments Neisseria gonorrhoeae DNA probe Negative Negative (test code = 07740-8) [facility] Hospitalhepatitis B surface qhpmdms9109-80-86 14:08:00 Test Item Value Reference Range Interpretation Comments hepatitis B surface antigen (test Negative Negative code = 79) [facility] HospitalHIV-1RNA, serum, by PCR, yupshshjcloe9505-58-13 14:08:00 Test Item Value Reference Range Interpretation Comments HIV-1RNA, serum, by PCR, 583417 /mL quantitative (test code = 54582) [facility] HospitalCD4/CD8 fsill8162-49-81 14:08:00 Test Item Value Reference Range Interpretation Comments CD4/CD8 ratio (test code 0.11 (unknown unit) 0.92-3.72 L = 69258) [facility] HospitalT-suppressor cells (CD8) as percent of blood lymphocytes 2020-08-15 14:08:00 Test Item Value Reference Range Interpretation Comments T-suppressor cells (CD8) as percent of 58.8 % 12.0-35.5 H blood lymphocytes (test code = 3517) [facility] Hospitalabsolute [id number] 14:08:00 Test Item Value Reference Range Interpretation Comments absolute CD8 (test code = 353 (unknown unit) 456-096 25491) [facility] Hospitalalanine aminotransferase (SGPT), vqfgc5137-93-76 14:15:00 Test Item Value Reference Range Interpretation Comments alanine aminotransferase (SGPT), 146 1/L 0-44 H serum (test code = 1742-6) [facility] Hospitalaspartate aminotransferase (SGOT), jzoxg8598-90-86 14:15:00 Test Item Value Reference Range Interpretation Comments aspartate aminotransferase (SGOT), 130 1/L 0-40 H serum (test code = 1920-8) [facility] Hospitalalkaline phosphatase, kjvmy6496-15-66 14:15:00 Test Item Value Reference Range Interpretation Comments alkaline phosphatase, serum (test 112 1/L 39-117 code = 1783-0) [facility] Hospitalbilirubin, serum, [id number] 14:15:00 Test Item Value Reference Range Interpretation Comments bilirubin, serum, total (test code 0.3 mg/dL 0.0-1.2 = 1975-2) [facility] Healthalbumin/globulin ratio, plfvf1450-50-34 14:15:00 Test Item Value Reference Range Interpretation Comments albumin/globulin ratio, 1.2 (unknown unit) 1.2-2.2 serum (test code = 1759-0) [facility] Healthglobulin, yjlpe3318-32-43 14:15:00 Test Item Value Reference Range Interpretation Comments globulin, serum (test code 3.2 (unknown unit) 1.5-4.5 = 2336-6) [facility] Healthalbumin, [id number] 14:15:00 Test Item Value Reference Range Interpretation Comments albumin, serum (test code = 1751-7) 3.9 g/dL 4.0-5.0 L [facility] total, jujlo9130-67-70 14:15:00 Test Item Value Reference Range Interpretation Comments protein, total, serum (test code = 7.1 g/dL 6.0-8.5 2885-2) [facility] Hospitalcalcium, jzxbo0875-91-91 14:15:00 Test Item Value Reference Range Interpretation Comments calcium, serum (test code = 1999-8) 8.8 mg/dL 8.7-10.2 [facility] Hospitalcarbon dioxide, venous friqs0576-24-76 14:15:00 Test Item Value Reference Range Interpretation Comments carbon dioxide, venous blood (test 22 mmol/L - code = 7-1) [facility] Hospitalchloride, woxnf9540-93-83 14:15:00 Test Item Value Reference Range Interpretation Comments chloride, serum (test code = 105 mmol/L 96-106 5-0) [facility] Hospitalpotassium, [id number] 14:15:00 Test Item Value Reference Range Interpretation Comments potassium, serum (test code = 4.0 mmol/L 3.5-5.2 2823-3) [facility] Hospitalsodium, upqyy3681-16-91 14:15:00 Test Item Value Reference Range Interpretation Comments sodium, serum (test code = 2951-2) 139 mmol/L 134-144 [facility] Hospitalurea nitrogen/creatinine ratio, hczoh5132-23-93 14:15:00 Test Item Value Reference Range Interpretation Comments urea nitrogen/creatinine 8 (unknown unit) 9-20 L ratio, serum (test code = 3097-3) [facility] HealtheGFR if Itgkeqoe4673-50-62 14:15:00 Test Item Value Reference Range Interpretation Comments eGFR if 96 mL/min/{1.73 m2} >59 (test code = 98440-0) [facility] HospitalEstimated Glomerular Filtration Rate (calc)2019-11-25 14:15:00 Test Item Value Reference Range Interpretation Comments Estimated Glomerular 83 mL/min/{1.73 m2} >59 Filtration Rate (calc) (test code = 99062-2) [facility] Hospitalcreatinine, [id number] 14:15:00 Test Item Value Reference Range Interpretation Comments creatinine, serum (test code = 1.05 mg/dL 0.76-1.27 2160-0) [facility] Hospitalurea nitrogen, rdxog7570-37-13 14:15:00 Test Item Value Reference Range Interpretation Comments urea nitrogen, blood (test code = 8 mg/dL 6-24 3094-0) [facility] Hospitalblood glucose, caoszg2672-32-62 14:15:00 Test Item Value Reference Range Interpretation Comments blood glucose, random (test code = 102 mg/dL 65-99 H 2339-0) [facility] Hospitalimmature granulocytes, percentage of total cells, blood 2019-11-25 14:15:00 Test Item Value Reference Range Interpretation Comments immature granulocytes, percentage of 0 % total cells, blood (test code = 72691-9) [facility] Hospitalbasophil count, hdvjavyf7102-69-73 14:15:00 Test Item Value Reference Range Interpretation Comments basophil count, absolute (test 0.0 x10E3/uL 0.0-0.2 code = 07045-7) [facility] HospitalEosinophil Absolute Oddkq2111-67-15 14:15:00 Test Item Value Reference Range Interpretation Comments Eosinophil Absolute Count (test 0.2 X10E3/UL 0.0-0.4 code = 81806-4) [facility] Hospitalmonocyte count, blood, dwoepaaxo8928-45-34 14:15:00 Test Item Value Reference Range Interpretation Comments monocyte count, blood, automated 0.2 X10E3/UL 0.1-0.9 (test code = 742-7) [facility] Hospitallymphocyte count, blood, nrgansyph2485-54-38 14:15:00 Test Item Value Reference Range Interpretation Comments lymphocyte count, blood, 0.6 X10E3/UL 0.7-3.1 L automated (test code = 731-0) [facility] HospitalAbsolute Qfrarwzehra2728-41-85 14:15:00 Test Item Value Reference Range Interpretation Comments Absolute Neutrophils (test code 1.3 X10E3/UL 1.4-7.0 L = 16590-7) [facility] Hospitalbasophils as percent of blood apxjmlkmpq7024-04-63 14:15:00 Test Item Value Reference Range Interpretation Comments basophils as percent of blood 0 % leukocytes (test code = 707-0) [facility] Hospitaleosinophils as percent of blood lifqnyptvk1978-31-64 14:15:00 Test Item Value Reference Range Interpretation Comments eosinophils as percent of blood 8 % leukocytes (test code = 713-8) [facility] Hospitalmonocytes as percent of blood pcbdbmvfml7050-85-94 14:15:00 Test Item Value Reference Range Interpretation Comments monocytes as percent of blood 10 % leukocytes (test code = 5905-5) [facility] Hospitallymphocytes as percent of blood sdpyqpjqvk7097-97-34 14:15:00 Test Item Value Reference Range Interpretation Comments lymphocytes as percent of blood 26 % leukocytes (test code = 736-9) [facility] Hospitalneutrophils as percent of blood hwpdwbaumw6008-02-55 14:15:00 Test Item Value Reference Range Interpretation Comments neutrophils as percent of blood 56 % leukocytes (test code = 770-8) [facility] Hospitalplatelet vtkmr4891-55-16 14:15:00 Test Item Value Reference Range Interpretation Comments platelet count (test code = 70 X10E3/UL 150-450 LL 777-3) [facility] Hospitalred blood cell distribution zfpfm6948-43-03 14:15:00 Test Item Value Reference Range Interpretation Comments red blood cell distribution width 13.4 % 11.6-15.4 (test code = 788-0) [facility] Hospitalmean corpuscular hemoglobin concentration, [id number] 14:15:00 Test Item Value Reference Range Interpretation Comments mean corpuscular hemoglobin 33.9 G/DL 31.5-35.7 concentration, RBC (test code = 786-4) [facility] Hospitalmean corpuscular hemoglobin, [id number] 14:15:00 Test Item Value Reference Range Interpretation Comments mean corpuscular hemoglobin, RBC 31.8 pg 26.6-33.0 (test code = 785-6) [facility] Hospitalmean corpuscular volume, [id number] 14:15:00 Test Item Value Reference Range Interpretation Comments mean corpuscular volume, RBC (test code 94 fL 79-97 = 787-2) [facility] Hospitalhematocrit, owsps7379-00-46 14:15:00 Test Item Value Reference Range Interpretation Comments hematocrit, blood (test code = 4544-3) 42.2 % 37.5-51.0 [facility] Hospitalhemoglobin, idyvc1443-03-31 14:15:00 Test Item Value Reference Range Interpretation Comments hemoglobin, blood (test code = 14.3 g/dL 13.0-17.7 718-7) [facility] Hospitalerythrocyte (RBC) oqnyw0224-35-46 14:15:00 Test Item Value Reference Range Interpretation Comments erythrocyte (RBC) count (test 4.50 X10E6/UL 4.14-5.80 code = 789-8) [facility] Hospitalleukocyte count, [id number] 14:15:00 Test Item Value Reference Range Interpretation Comments leukocyte count, blood (test 2.3 X10E3/UL 3.4-10.8 LL code = 6690-2) [facility] HospitalT-helper cells (CD4) as percent of blood lymphocytes 2019-11-25 14:15:00 Test Item Value Reference Range Interpretation Comments T-helper cells (CD4) as percent of 9.5 % 30.8-58.5 L blood lymphocytes (test code = 8123-2) [facility] HospitalT-helper cells (CD4) fmsnt9275-47-11 14:15:00 Test Item Value Reference Range Interpretation Comments T-helper cells (CD4) count (test code 57 /UL 359-1519 L = 01452-6) [facility] HospitalHIV-1RNA, serum, by PCR, skbinhhnipqj1920-26-65 14:15:00 Test Item Value Reference Range Interpretation Comments HIV-1RNA, serum, by PCR, 2720 /mL quantitative (test code = 63118-3) [facility] HospitalCD4/CD8 nvrrl1752-70-53 14:15:00 Test Item Value Reference Range Interpretation Comments CD4/CD8 ratio (test code 0.15 (unknown unit) 0.92-3.72 L = 26092) [facility] HospitalT-suppressor cells (CD8) as percent of blood lymphocytes 2019-11-25 14:15:00 Test Item Value Reference Range Interpretation Comments T-suppressor cells (CD8) as percent of 62.0 % 12.0-35.5 H blood lymphocytes (test code = 3517) [facility] [id number] 14:15:00 Test Item Value Reference Range Interpretation Comments absolute CD8 (test code = 372 (unknown unit) [phone]) [facility] HospitalHIV-1RNA, serum, by PCR, jxtfgfiwpitx9750-62-41 14:15:00 Test Item Value Reference Range Interpretation Comments HIV-1RNA, serum, by PCR, 2720 /mL quantitative (test code = 78935) [facility] HospitalCD4/CD8 emoub4771-82-31 14:15:00 Test Item Value Reference Range Interpretation Comments CD4/CD8 ratio (test code 0.15 (unknown unit) 0.92-3.72 L = 12257) [facility] HospitalT-suppressor cells (CD8) as percent of blood lymphocytes 2019-11-25 14:15:00 Test Item Value Reference Range Interpretation Comments T-suppressor cells (CD8) as percent of 62.0 % 12.0-35.5 H blood lymphocytes (test code = 3517) [facility] [id number] 14:15:00 Test Item Value Reference Range Interpretation Comments absolute CD8 (test code = 372 (unknown unit) [phone]) [facility] HospitalTreponema pallidum particle agglutination assay (TPPA test)2019-10-14 11:34:00 Test Item Value Reference Range Interpretation Comments Treponema pallidum particle Reactive Non Reactive A agglutination assay (TPPA test) (test code = 89006-8) [facility] reagin antibody, hagsa5699-59-46 11:34:00 Test Item Value Reference Range Interpretation Comments rapid plasma reagin 1:2 See_Comment H [Automa robert message] The antibody, serum (test system which generated code = 5291-0) this result t ransmitted reference range : NonRea<1:1. The reference range was not u sed to interpret this result as normal/abnormal . [facility] HospitalLDL cholesterol, [id number] 11:34:00 Test Item Value Reference Range Interpretation Comments LDL cholesterol, serum (test code = 103 mg/dL 0-99 H 2088-08) [facility] Hospitalvery low density eqqzlrnawaua5141-63-60 11:34:00 Test Item Value Reference Range Interpretation Comments very low density lipoproteins (test 32 mg/dL 5-40 code = 2090-7) [facility] HospitalHDL cholesterol, bmycy3314-24-52 11:34:00 Test Item Value Reference Range Interpretation Comments HDL cholesterol, serum (test code = 27 mg/dL >39 L 2085-04) [facility] Hospitaltriglyceride, serum, liwnyoa9300-47-14 11:34:00 Test Item Value Reference Range Interpretation Comments triglyceride, serum, fasting (test 162 mg/dL 0-149 H code = 2571-8) [facility] Hospitalcholesterol, ymwfl3453-52-09 11:34:00 Test Item Value Reference Range Interpretation Comments cholesterol, serum (test code = 162 mg/dL 125-780 5286-) [facility] Hospitalalanine aminotransferase (SGPT), cqurm3045-30-22 11:34:00 Test Item Value Reference Range Interpretation Comments alanine aminotransferase (SGPT), 136 1/L 0-44 H serum (test code = 1742-6) [facility] Hospitalaspartate aminotransferase (SGOT), qsywa3230-95-65 11:34:00 Test Item Value Reference Range Interpretation Comments aspartate aminotransferase (SGOT), 135 1/L 0-40 H serum (test code = 1920-8) [facility] Hospitalalkaline phosphatase, rcedz9416-93-24 11:34:00 Test Item Value Reference Range Interpretation Comments alkaline phosphatase, serum (test code 86 1/L 39-117 = 1783-0) [facility] Hospitalbilirubin, serum, [id number] 11:34:00 Test Item Value Reference Range Interpretation Comments bilirubin, serum, total (test code 0.4 mg/dL 0.0-1.2 = 1975-2) [facility] Healthalbumin/globulin ratio, ixegk4168-40-19 11:34:00 Test Item Value Reference Range Interpretation Comments albumin/globulin ratio, 1.3 (unknown unit) 1.2-2.2 serum (test code = 1759-0) [facility] Healthglobulin, [id number] 11:34:00 Test Item Value Reference Range Interpretation Comments globulin, serum (test code 3.0 (unknown unit) 1.5-4.5 = 2336-6) [facility] Healthalbumin, [id number] 11:34:00 Test Item Value Reference Range Interpretation Comments albumin, serum (test code = 1751-7) 4.0 g/dL 4.0-5.0 [facility] Hospitalprotein, total, zktrj3097-98-74 11:34:00 Test Item Value Reference Range Interpretation Comments protein, total, serum (test code = 7.0 g/dL 6.0-8.5 2885-2) [facility] Hospitalcalcium, aaxnt0486-95-86 11:34:00 Test Item Value Reference Range Interpretation Comments calcium, serum (test code = 1999-8) 8.8 mg/dL 8.7-10.2 [facility] Hospitalcarbon dioxide, venous wntpb3784-00-36 11:34:00 Test Item Value Reference Range Interpretation Comments carbon dioxide, venous blood (test 23 mmol/L - code = 7-1) [facility] Hospitalchloride, [id number] 11:34:00 Test Item Value Reference Range Interpretation Comments chloride, serum (test code = 103 mmol/L 96-106 5-0) [facility] Hospitalpotassium, ibwym1687-05-81 11:34:00 Test Item Value Reference Range Interpretation Comments potassium, serum (test code = 4.3 mmol/L 3.5-5.2 2823-3) [facility]alsodium, ggovt5492-77-79 11:34:00 Test Item Value Reference Range Interpretation Comments sodium, serum (test code = 2951-2) 139 mmol/L 134-144 [facility] Hospitalurea nitrogen/creatinine ratio, nubgx7732-40-14 11:34:00 Test Item Value Reference Range Interpretation Comments urea nitrogen/creatinine 10 (unknown unit) 9-20 ratio, serum (test code = 3097-3) [facility] HospitaleGFR if Mmopvxtx7407-38-82 11:34:00 Test Item Value Reference Range Interpretation Comments eGFR if 117 mL/min/{1.73 m2} >59 (test code = 83808-2) [facility] HospitalEstimated Glomerular Filtration Rate (calc)2019-10-14 11:34:00 Test Item Value Reference Range Interpretation Comments Estimated Glomerular 101 mL/min/{1.73 m2} >59 Filtration Rate (calc) (test code = 01953-5) [facility] Hospitalcreatinine, zcvtc5725-12-01 11:34:00 Test Item Value Reference Range Interpretation Comments creatinine, serum (test code = 0.88 mg/dL 0.76-1.27 2160-0) [facility]urea nitrogen, [id number] 11:34:00 Test Item Value Reference Range Interpretation Comments urea nitrogen, blood (test code = 9 mg/dL 6-24 3094-0) [facility] Hospitalblood glucose, gkpgex4092-08-32 11:34:00 Test Item Value Reference Range Interpretation Comments blood glucose, random (test code = 74 mg/dL 65-99 2339-0) [facility] Hospitalbasophil count, qvbcpyfk1746-95-53 11:34:00 Test Item Value Reference Range Interpretation Comments basophil count, absolute (test 0.0 x10E3/uL 0.0-0.2 code = 83840-9) [facility] HospitalEosinophil Absolute Pkqly0215-43-82 11:34:00 Test Item Value Reference Range Interpretation Comments Eosinophil Absolute Count (test 0.0 X10E3/UL 0.0-0.4 code = 43309-4) [facility] Hospitalmonocyte count, blood, jrsrkuran0187-74-09 11:34:00 Test Item Value Reference Range Interpretation Comments monocyte count, blood, automated 0.7 X10E3/UL 0.1-0.9 (test code = 742-7) [facility] Hospitallymphocyte count, blood, mpcvcokbr0590-23-78 11:34:00 Test Item Value Reference Range Interpretation Comments lymphocyte count, blood, 0.9 X10E3/UL 0.7-3.1 automated (test code = 731-0) [facility] HospitalAbsolute Dpkpskkcgwh9802-32-71 11:34:00 Test Item Value Reference Range Interpretation Comments Absolute Neutrophils (test code 1.5 X10E3/UL 1.4-7.0 = 73711-3) [facility] Hospitalbasophils as percent of blood zbaoklblpr8827-84-16 11:34:00 Test Item Value Reference Range Interpretation Comments basophils as percent of blood 1 % leukocytes (test code = 707-0) [facility] Hospitaleosinophils as percent of blood ndtvxztwko5066-17-12 11:34:00 Test Item Value Reference Range Interpretation Comments eosinophils as percent of blood 1 % leukocytes (test code = 713-8) [facility] Hospitalmonocytes as percent of blood gdttffeyhi1788-75-10 11:34:00 Test Item Value Reference Range Interpretation Comments monocytes as percent of blood 21 % leukocytes (test code = 5905-5) [facility] Hospitallymphocytes as percent of blood ysgmfiolle4013-61-15 11:34:00 Test Item Value Reference Range Interpretation Comments lymphocytes as percent of blood 28 % leukocytes (test code = 736-9) [facility] Hospitalneutrophils as percent of blood vuzzsnlfmt1475-64-69 11:34:00 Test Item Value Reference Range Interpretation Comments neutrophils as percent of blood 42 % leukocytes (test code = 770-8) [facility] Hospitalplatelet rgeku1544-19-23 11:34:00 Test Item Value Reference Range Interpretation Comments platelet count (test code = 81 X10E3/UL 150-450 LL 777-3) [facility] Hospitalred blood cell distribution iaivq9841-14-82 11:34:00 Test Item Value Reference Range Interpretation Comments red blood cell distribution width 13.0 % 11.6-15.4 (test code = 788-0) [facility] Hospitalmean corpuscular hemoglobin concentration, [id number] 11:34:00 Test Item Value Reference Range Interpretation Comments mean corpuscular hemoglobin 36.1 G/DL 31.5-35.7 H concentration, RBC (test code = 786-4) [facility] corpuscular hemoglobin, [id number] 11:34:00 Test Item Value Reference Range Interpretation Comments mean corpuscular hemoglobin, RBC 33.4 pg 26.6-33.0 H (test code = 785-6) [facility] Hospitalmean corpuscular volume, [id number] 11:34:00 Test Item Value Reference Range Interpretation Comments mean corpuscular volume, RBC (test code 92 fL 79-97 = 787-2) [facility] Hospitalhematocrit, saiwi2858-81-60 11:34:00 Test Item Value Reference Range Interpretation Comments hematocrit, blood (test code = 4544-3) 37.9 % 37.5-51.0 [facility] Hospitalhemoglobin, jgtnx4561-70-75 11:34:00 Test Item Value Reference Range Interpretation Comments hemoglobin, blood (test code = 13.7 g/dL 13.0-17.7 718-7) [facility] Hospitalerythrocyte (RBC) fikva5194-20-97 11:34:00 Test Item Value Reference Range Interpretation Comments erythrocyte (RBC) count (test 4.10 X10E6/UL 4.14-5.80 L code = 789-8) [facility] Hospitalleukocyte count, owyql6889-88-34 11:34:00 Test Item Value Reference Range Interpretation Comments leukocyte count, blood (test 3.1 X10E3/UL 3.4-10.8 L code = 6690-2) [facility] HospitalT-helper cells (CD4) as percent of blood lymphocytes 2019-10-14 11:34:00 Test Item Value Reference Range Interpretation Comments T-helper cells (CD4) as percent of 4.9 % 30.8-58.5 L blood lymphocytes (test code = 8123-2) [facility] HospitalT-helper cells (CD4) dgnnx8379-55-08 11:34:00 Test Item Value Reference Range Interpretation Comments T-helper cells (CD4) count (test code 44 /UL 359-1519 L = 15794-1) [facility] HospitalHIV-1RNA, serum, by PCR, eqlywybdqiae8779-94-29 11:34:00 Test Item Value Reference Range Interpretation Comments HIV-1RNA, serum, by PCR, 289638 /mL quantitative (test code = 36011-1) [facility] HospitalCD4/CD8 etjol4365-98-60 11:34:00 Test Item Value Reference Range Interpretation Comments CD4/CD8 ratio (test code 0.07 (unknown unit) 0.92-3.72 L = 96382) [facility] HospitalT-suppressor cells (CD8) as percent of blood lymphocytes 2019-10-14 11:34:00 Test Item Value Reference Range Interpretation Comments T-suppressor cells (CD8) as percent of 69.7 % 12.0-35.5 H blood lymphocytes (test code = 3517) [facility] Hospitalabsolute [id number] 11:34:00 Test Item Value Reference Range Interpretation Comments absolute CD8 (test code = 627 (unknown unit) 558-452 17691) [facility] HospitalHIV-1RNA, serum, by PCR, hptvocctlbqc8541-99-30 11:34:00 Test Item Value Reference Range Interpretation Comments HIV-1RNA, serum, by PCR, 082409 /mL quantitative (test code = 04270) [facility] HospitalCD4/CD8 wnwak1066-20-17 11:34:00 Test Item Value Reference Range Interpretation Comments CD4/CD8 ratio (test code 0.07 (unknown unit) 0.92-3.72 L = 79801) [facility] HospitalT-suppressor cells (CD8) as percent of blood lymphocytes 2019-10-14 11:34:00 Test Item Value Reference Range Interpretation Comments T-suppressor cells (CD8) as percent of 69.7 % 12.0-35.5 H blood lymphocytes (test code = 3517) [facility] [id number] 11:34:00 Test Item Value Reference Range Interpretation Comments absolute CD8 (test code = 627 (unknown unit) 956-172 83368) [facility] Hospitalprothrombin time (patient)2019-04-15 14:27:00 Test Item Value Reference Range Interpretation Comments prothrombin time (patient) (test code 10.6 s 9.1-12.0 = 5902-2) [facility] Hospitalinternational normalized ratio (INR)2019-04-15 14:27:00 Test Item Value Reference Range Interpretation Comments international normalized 1.0 (unknown unit) 0.8-1.2 ratio (INR) (test code = 6301-6) [facility] Hospitalalanine aminotransferase (SGPT), yvcjd8026-00-63 14:27:00 Test Item Value Reference Range Interpretation Comments alanine aminotransferase (SGPT), serum 53 1/L 0-44 H (test code = 1742-6) [facility] Hospitalaspartate aminotransferase (SGOT), afvuc6338-09-85 14:27:00 Test Item Value Reference Range Interpretation Comments aspartate aminotransferase (SGOT), 66 1/L 0-40 H serum (test code = 1920-8) [facility] Hospitalalkaline phosphatase, dluth9790-16-10 14:27:00 Test Item Value Reference Range Interpretation Comments alkaline phosphatase, serum (test code 74 1/L 39-117 = 1783-0) [facility] Hospitalalbumin/globulin ratio, [id number] 14:27:00 Test Item Value Reference Range Interpretation Comments albumin/globulin ratio, 1.3 (unknown unit) 1.2-2.2 serum (test code = 1759-0) [facility] Healthglobulin, vcgmu1033-24-23 14:27:00 Test Item Value Reference Range Interpretation Comments globulin, serum (test code 3.0 (unknown unit) 1.5-4.5 = 2336-6) [facility] Healthalbumin, hvrqg1282-47-70 14:27:00 Test Item Value Reference Range Interpretation Comments albumin, serum (test code = 1751-7) 3.8 g/dL 3.5-5.5 [facility] Hospitalprotein, total, [id number] 14:27:00 Test Item Value Reference Range Interpretation Comments protein, total, serum (test code = 6.8 g/dL 6.0-8.5 2885-2) [facility] Hospitalcalcium, utqfq7609-88-19 14:27:00 Test Item Value Reference Range Interpretation Comments calcium, serum (test code = 1999-8) 8.7 mg/dL 8.7-10.2 [facility] Hospitalcarbon dioxide, venous sljdk4008-85-06 14:27:00 Test Item Value Reference Range Interpretation Comments carbon dioxide, venous blood (test 21 mmol/L - code = 2026-1) [facility] Hospitalchloride, wpiec8355-60-31 14:27:00 Test Item Value Reference Range Interpretation Comments chloride, serum (test code = 105 mmol/L 96-106 5-0) [facility] Hospitalpotassium, [id number] 14:27:00 Test Item Value Reference Range Interpretation Comments potassium, serum (test code = 3.9 mmol/L 3.5-5.2 2823-3) [facility] Hospitalsodium, cmvim1893-27-08 14:27:00 Test Item Value Reference Range Interpretation Comments sodium, serum (test code = 2951-2) 140 mmol/L 134-144 [facility] Hospitalurea nitrogen/creatinine ratio, hszwe7530-31-48 14:27:00 Test Item Value Reference Range Interpretation Comments urea nitrogen/creatinine 12 (unknown unit) 9-20 ratio, serum (test code = 3097-3) [facility] HealtheGFR if Dlhqfvjd9451-11-26 14:27:00 Test Item Value Reference Range Interpretation Comments eGFR if 116 mL/min/{1.73 m2} >59 (test code = 43002-7) [facility] HospitalEstimated Glomerular Filtration Rate (calc)2019-04-15 14:27:00 Test Item Value Reference Range Interpretation Comments Estimated Glomerular 101 mL/min/{1.73 m2} >59 Filtration Rate (calc) (test code = 87858-6) [facility] Hospitalcreatinine, [id number] 14:27:00 Test Item Value Reference Range Interpretation Comments creatinine, serum (test code = 0.90 mg/dL 0.76-1.27 2160-0) [facility] Hospitalurea nitrogen, mtpms4226-08-51 14:27:00 Test Item Value Reference Range Interpretation Comments urea nitrogen, blood (test code = 11 mg/dL 6-24 3094-0) [facility] Hospitalblood glucose, hzvsbq9567-09-94 14:27:00 Test Item Value Reference Range Interpretation Comments blood glucose, random (test code = 87 mg/dL 65-99 2339-0) [facility] Hospitalbilirubin, serum, hyakm9401-28-15 14:27:00 Test Item Value Reference Range Interpretation Comments bilirubin, serum, total (test code 0.5 mg/dL 0.0-1.2 = 1975-2) [facility] Hospitalimmature granulocytes, percentage of total cells, blood 2019-04-15 14:27:00 Test Item Value Reference Range Interpretation Comments immature granulocytes, percentage of 0 % total cells, blood (test code = 76442-2) [facility] Hospitalbasophil count, mphvxtkp7246-10-25 14:27:00 Test Item Value Reference Range Interpretation Comments basophil count, absolute (test 0.0 x10E3/uL 0.0-0.2 code = 07533-6) [facility] HealthEosinophil Absolute [id number] 14:27:00 Test Item Value Reference Range Interpretation Comments Eosinophil Absolute Count (test 0.2 X10E3/UL 0.0-0.4 code = 03105-8) [facility] Healthmonocyte count, blood, mtnmfkuvh2014-22-40 14:27:00 Test Item Value Reference Range Interpretation Comments monocyte count, blood, automated 0.4 X10E3/UL 0.1-0.9 (test code = 742-7) [facility] Hospitallymphocyte count, blood, unhqjgdxg2212-78-69 14:27:00 Test Item Value Reference Range Interpretation Comments lymphocyte count, blood, 0.9 X10E3/UL 0.7-3.1 automated (test code = 731-0) [facility] HospitalAbsolute Bbasnulrlrf1871-48-91 14:27:00 Test Item Value Reference Range Interpretation Comments Absolute Neutrophils (test code 1.6 X10E3/UL 1.4-7.0 = 41750-5) [facility] Hospitalbasophils as percent of blood zfnmvvmeuc4197-33-69 14:27:00 Test Item Value Reference Range Interpretation Comments basophils as percent of blood 1 % leukocytes (test code = 707-0) [facility] Healtheosinophils as percent of blood aejmuiyhcy5057-92-42 14:27:00 Test Item Value Reference Range Interpretation Comments eosinophils as percent of blood 7 % leukocytes (test code = 713-8) [facility] Healthmonocytes as percent of blood qbdzvnqems1437-99-42 14:27:00 Test Item Value Reference Range Interpretation Comments monocytes as percent of blood 13 % leukocytes (test code = 5905-5) [facility] Hospitallymphocytes as percent of blood jckdtookwt8934-17-48 14:27:00 Test Item Value Reference Range Interpretation Comments lymphocytes as percent of blood 29 % leukocytes (test code = 736-9) [facility] Hospitalneutrophils as percent of blood uxuswsjott1206-79-85 14:27:00 Test Item Value Reference Range Interpretation Comments neutrophils as percent of blood 50 % leukocytes (test code = 770-8) [facility] Hospitalplatelet hvpgc9532-64-92 14:27:00 Test Item Value Reference Range Interpretation Comments platelet count (test code = 55 X10E3/UL 150-450 LL 777-3) [facility] Hospitalred blood cell distribution [id number] 14:27:00 Test Item Value Reference Range Interpretation Comments red blood cell distribution width 14.7 % 12.3-15.4 (test code = 788-0) [facility] corpuscular hemoglobin concentration, [id number] 14:27:00 Test Item Value Reference Range Interpretation Comments mean corpuscular hemoglobin 33.8 G/DL 31.5-35.7 concentration, RBC (test code = 786-4) [facility] corpuscular hemoglobin, [id number] 14:27:00 Test Item Value Reference Range Interpretation Comments mean corpuscular hemoglobin, RBC 31.2 pg 26.6-33.0 (test code = 785-6) [facility] corpuscular volume, [id number] 14:27:00 Test Item Value Reference Range Interpretation Comments mean corpuscular volume, RBC (test code 92 fL 79-97 = 787-2) [facility] Hospitalhematocrit, weamf0521-55-47 14:27:00 Test Item Value Reference Range Interpretation Comments hematocrit, blood (test code = 4544-3) 37.9 % 37.5-51.0 [facility] Hospitalhemoglobin, tjolm4518-69-36 14:27:00 Test Item Value Reference Range Interpretation Comments hemoglobin, blood (test code = 12.8 g/dL 13.0-17.7 L 718-7) [facility] Hospitalerythrocyte (RBC) xnqkj8113-18-14 14:27:00 Test Item Value Reference Range Interpretation Comments erythrocyte (RBC) count (test 4.10 X10E6/UL 4.14-5.80 L code = 789-8) [facility] Hospitalleukocyte count, glqxr5367-94-07 14:27:00 Test Item Value Reference Range Interpretation Comments leukocyte count, blood (test 3.2 X10E3/UL 3.4-10.8 L code = 6690-2) [facility] HospitalT-helper cells (CD4) as percent of blood lymphocytes 2019-04-15 14:27:00 Test Item Value Reference Range Interpretation Comments T-helper cells (CD4) as percent of 7.8 % 30.8-58.5 L blood lymphocytes (test code = 8123-2) [facility] HospitalT-helper cells (CD4) facrf4938-77-37 14:27:00 Test Item Value Reference Range Interpretation Comments T-helper cells (CD4) count (test code 70 /UL 359-1519 L = 51751-1) [facility] HospitalHIV-1RNA, serum, by PCR, xahamocbdltu0057-79-10 14:27:00 Test Item Value Reference Range Interpretation Comments HIV-1RNA, serum, by PCR, 389734 /mL quantitative (test code = 29541-4) [facility] Hospitalgamma glutamyl transferase, wcrdt9093-95-20 14:27:00 Test Item Value Reference Range Interpretation Comments gamma glutamyl transferase, serum 47 1/L 0-65 (test code = 25) [facility] Hospitalapolipoprotein A-1, uqobe8768-62-10 14:27:00 Test Item Value Reference Range Interpretation Comments apolipoprotein A-1, serum (test code 86 mg/dL 101-178 L = 3924) [facility] Hospitalhaptoglobin, juwzc6326-49-61 14:27:00 Test Item Value Reference Range Interpretation Comments haptoglobin, serum (test code = 86 mg/dL 34-200 2851) [facility] Hospitalalpha-2 macroglobulin, wzvad3606-27-50 14:27:00 Test Item Value Reference Range Interpretation Comments alpha-2 macroglobulin, serum (test 230 mg/dL 110-276 code = 5539) [facility] HospitalHCV Zngjezmtq1425-02-41 14:27:00 Test Item Value Reference Range Interpretation Comments HCV Fibrosure (test code 0.36 (unknown unit) 0.00-0.21 H = 38539-1) [facility] HospitalCD4/CD8 srzly1011-09-13 14:27:00 Test Item Value Reference Range Interpretation Comments CD4/CD8 ratio (test code 0.12 (unknown unit) 0.92-3.72 L = 42268) [facility] HospitalT-suppressor cells (CD8) as percent of blood lymphocytes 2019-04-15 14:27:00 Test Item Value Reference Range Interpretation Comments T-suppressor cells (CD8) as percent of 64.0 % 12.0-35.5 H blood lymphocytes (test code = 3517) [facility] Healthabsolute [id number] 14:27:00 Test Item Value Reference Range Interpretation Comments absolute CD8 (test code = 576 (unknown unit) 109-737 05941) [facility] HospitalHIV-1RNA, serum, by PCR, xqxjjvordsqj4094-51-63 14:27:00 Test Item Value Reference Range Interpretation Comments HIV-1RNA, serum, by PCR, 649287 /mL quantitative (test code = 62686) [facility] Hospitalgamma glutamyl transferase, ytzcq1501-60-48 14:27:00 Test Item Value Reference Range Interpretation Comments gamma glutamyl transferase, serum 47 1/L 0-65 (test code = 25) [facility] Hospitalapolipoprotein A-1, gcbav1639-76-17 14:27:00 Test Item Value Reference Range Interpretation Comments apolipoprotein A-1, serum (test code 86 mg/dL 101-178 L = 3924) [facility] Hospitalhaptoglobin, eoxop4919-20-52 14:27:00 Test Item Value Reference Range Interpretation Comments haptoglobin, serum (test code = 86 mg/dL 34-200 2851) [facility] Hospitalalpha-2 macroglobulin, ldgut7307-01-67 14:27:00 Test Item Value Reference Range Interpretation Comments alpha-2 macroglobulin, serum (test 230 mg/dL 110-276 code = 5539) [facility] HospitalHCV Kapmxmjic5597-83-36 14:27:00 Test Item Value Reference Range Interpretation Comments HCV Fibrosure (test code 0.36 (unknown unit) 0.00-0.21 H = 023579) [facility] HospitalCD4/CD8 [id number] 14:27:00 Test Item Value Reference Range Interpretation Comments CD4/CD8 ratio (test code 0.12 (unknown unit) 0.92-3.72 L = 15720) [facility] HospitalT-suppressor cells (CD8) as percent of blood lymphocytes 2019-04-15 14:27:00 Test Item Value Reference Range Interpretation Comments T-suppressor cells (CD8) as percent of 64.0 % 12.0-35.5 H blood lymphocytes (test code = 3517) [facility] Hospitalabsolute OI35056-06-05 14:27:00 Test Item Value Reference Range Interpretation Comments absolute CD8 (test code = 576 (unknown unit) 815-026 71800) [facility] Hospitalalanine aminotransferase (SGPT), uwysm6218-37-34 12:10:00 Test Item Value Reference Range Interpretation Comments alanine aminotransferase (SGPT), serum 48 1/L 0-44 H (test code = 1742-6) [facility] Hospitalaspartate aminotransferase (SGOT), vxmdb3037-70-45 12:10:00 Test Item Value Reference Range Interpretation Comments aspartate aminotransferase (SGOT), 54 1/L 0-40 H serum (test code = 1920-8) [facility] Hospitalalkaline phosphatase, nnzrh1944-42-91 12:10:00 Test Item Value Reference Range Interpretation Comments alkaline phosphatase, serum (test code 72 1/L 39-117 = 1783-0) [facility] Hospitalbilirubin, serum, [id number] 12:10:00 Test Item Value Reference Range Interpretation Comments bilirubin, serum, total (test code 0.4 mg/dL 0.0-1.2 = 1975-2) [facility] Hospitalalbumin/globulin ratio, fpnrk3528-14-87 12:10:00 Test Item Value Reference Range Interpretation Comments albumin/globulin ratio, 1.5 (unknown unit) 1.2-2.2 serum (test code = 1759-0) [facility] Healthglobulin, [id number] 12:10:00 Test Item Value Reference Range Interpretation Comments globulin, serum (test code 3.1 (unknown unit) 1.5-4.5 = 2336-6) [facility] Healthalbumin, jvseg8095-18-59 12:10:00 Test Item Value Reference Range Interpretation Comments albumin, serum (test code = 1751-7) 4.5 g/dL 3.5-5.5 [facility] Hospitalprotein, total, hrpno2890-04-07 12:10:00 Test Item Value Reference Range Interpretation Comments protein, total, serum (test code = 7.6 g/dL 6.0-8.5 2885-2) [facility] Hospitalcalcium, upepg7058-58-48 12:10:00 Test Item Value Reference Range Interpretation Comments calcium, serum (test code = 1999-8) 9.0 mg/dL 8.7-10.2 [facility] Hospitalcarbon dioxide, venous xfqgx8747-27-63 12:10:00 Test Item Value Reference Range Interpretation Comments carbon dioxide, venous blood (test 20 mmol/L 20-29 code = 2026-1) [facility] Healthchloride, ysdko2644-61-10 12:10:00 Test Item Value Reference Range Interpretation Comments chloride, serum (test code = 107 mmol/L 96-106 H 2074-0) [facility] Healthpotassium, lczte8837-91-38 12:10:00 Test Item Value Reference Range Interpretation Comments potassium, serum (test code = 4.1 mmol/L 3.5-5.2 2823-3) [facility] Hospitalsodium, tloar9557-54-75 12:10:00 Test Item Value Reference Range Interpretation Comments sodium, serum (test code = 2951-2) 143 mmol/L 134-144 [facility] Hospitalurea nitrogen/creatinine ratio, dhmlc7543-00-24 12:10:00 Test Item Value Reference Range Interpretation Comments urea nitrogen/creatinine 9 (unknown unit) 9-20 ratio, serum (test code = 3097-3) [facility] HealtheGFR if Pingonlk2407-68-57 12:10:00 Test Item Value Reference Range Interpretation Comments eGFR if 104 mL/min/{1.73 m2} >59 (test code = 22379-2) [facility] HospitalEstimated Glomerular Filtration Rate (calc)2018-11-21 12:10:00 Test Item Value Reference Range Interpretation Comments Estimated Glomerular 90 mL/min/{1.73 m2} >59 Filtration Rate (calc) (test code = 31411-0) [facility] Hospitalcreatinine, scyxq1044-41-95 12:10:00 Test Item Value Reference Range Interpretation Comments creatinine, serum (test code = 0.99 mg/dL 0.76-1.27 2160-0) [facility] Hospitalurea nitrogen, wqpxo1650-27-91 12:10:00 Test Item Value Reference Range Interpretation Comments urea nitrogen, blood (test code = 9 mg/dL 6-24 3094-0) [facility] Hospitalblood glucose, mcfffi9927-16-12 12:10:00 Test Item Value Reference Range Interpretation Comments blood glucose, random (test code = 86 mg/dL 65-99 2339-0) [facility] Hospitalimmature granulocytes, percentage of total cells, blood 2018-11-21 12:10:00 Test Item Value Reference Range Interpretation Comments immature granulocytes, percentage of 0 % total cells, blood (test code = 63100-3) [facility] Healthbasophil count, xtbywkqs6162-57-02 12:10:00 Test Item Value Reference Range Interpretation Comments basophil count, absolute (test 0.0 x10E3/uL 0.0-0.2 code = 61644-6) [facility] HealthEosinophil Absolute Kcaha9759-43-36 12:10:00 Test Item Value Reference Range Interpretation Comments Eosinophil Absolute Count (test 0.3 X10E3/UL 0.0-0.4 code = 15951-7) [facility] Hospitalmonocyte count, blood, cqbpdrzli6176-22-33 12:10:00 Test Item Value Reference Range Interpretation Comments monocyte count, blood, automated 0.5 X10E3/UL 0.1-0.9 (test code = 742-7) [facility] Hospitallymphocyte count, blood, vohdmtuxd1889-24-67 12:10:00 Test Item Value Reference Range Interpretation Comments lymphocyte count, blood, 1.3 X10E3/UL 0.7-3.1 automated (test code = 731-0) [facility] HospitalAbsolute Oehixiwbvub2578-07-06 12:10:00 Test Item Value Reference Range Interpretation Comments Absolute Neutrophils (test code 1.7 X10E3/UL 1.4-7.0 = 02679-2) [facility] Hospitalbasophils as percent of blood drnekaxkgk7159-25-38 12:10:00 Test Item Value Reference Range Interpretation Comments basophils as percent of blood 0 % leukocytes (test code = 707-0) [facility] Healtheosinophils as percent of blood sdlposnbqy8593-97-35 12:10:00 Test Item Value Reference Range Interpretation Comments eosinophils as percent of blood 8 % leukocytes (test code = 713-8) [facility] Healthmonocytes as percent of blood kmnztgsdca2472-45-01 12:10:00 Test Item Value Reference Range Interpretation Comments monocytes as percent of blood 13 % leukocytes (test code = 5905-5) [facility] Hospitallymphocytes as percent of blood rxbbezckdf7132-31-88 12:10:00 Test Item Value Reference Range Interpretation Comments lymphocytes as percent of blood 34 % leukocytes (test code = 736-9) [facility] Hospitalneutrophils as percent of blood vpvmgcqduh1469-52-65 12:10:00 Test Item Value Reference Range Interpretation Comments neutrophils as percent of blood 45 % leukocytes (test code = 770-8) [facility] Hospitalplatelet laikq5040-87-19 12:10:00 Test Item Value Reference Range Interpretation Comments platelet count (test code = 86 X10E3/UL 150-379 LL 777-3) [facility] Hospitalred blood cell distribution gadza3300-46-48 12:10:00 Test Item Value Reference Range Interpretation Comments red blood cell distribution width 15.2 % 12.3-15.4 (test code = 788-0) [facility] corpuscular hemoglobin concentration, AUA8731-01-40 12:10:00 Test Item Value Reference Range Interpretation Comments mean corpuscular hemoglobin 33.9 G/DL 31.5-35.7 concentration, RBC (test code = 786-4) [facility] corpuscular hemoglobin, [id number] 12:10:00 Test Item Value Reference Range Interpretation Comments mean corpuscular hemoglobin, RBC 32.2 pg 26.6-33.0 (test code = 785-6) [facility] corpuscular volume, [id number] 12:10:00 Test Item Value Reference Range Interpretation Comments mean corpuscular volume, RBC (test code 95 fL 79-97 = 787-2) [facility] Hospitalhematocrit, acfkw2102-74-68 12:10:00 Test Item Value Reference Range Interpretation Comments hematocrit, blood (test code = 4544-3) 42.5 % 37.5-51.0 [facility] Hospitalhemoglobin, mrawn1533-02-62 12:10:00 Test Item Value Reference Range Interpretation Comments hemoglobin, blood (test code = 14.4 g/dL 13.0-17.7 718-7) [facility] Hospitalerythrocyte (RBC) pvnxx0021-20-58 12:10:00 Test Item Value Reference Range Interpretation Comments erythrocyte (RBC) count (test 4.47 X10E6/UL 4.14-5.80 code = 789-8) [facility] Hospitalleukocyte count, favtd5398-76-41 12:10:00 Test Item Value Reference Range Interpretation Comments leukocyte count, blood (test 3.8 X10E3/UL 3.4-10.8 code = 6690-2) [facility] HospitalT-helper cells (CD4) as percent of blood lymphocytes 2018-11-21 12:10:00 Test Item Value Reference Range Interpretation Comments T-helper cells (CD4) as percent of 8.3 % 30.8-58.5 L blood lymphocytes (test code = 8123-2) [facility] HospitalT-helper cells (CD4) xmbfu3677-17-09 12:10:00 Test Item Value Reference Range Interpretation Comments T-helper cells (CD4) count (test code 108 /UL 359-1519 L = 22439-6) [facility] HospitalHIV-1RNA, serum, by PCR, cnlijkegdbrq9540-29-13 12:10:00 Test Item Value Reference Range Interpretation Comments HIV-1RNA, serum, by PCR, 1250 /mL quantitative (test code = 01380) [facility] HospitalCD4/CD8 kaqgi1241-24-81 12:10:00 Test Item Value Reference Range Interpretation Comments CD4/CD8 ratio (test code 0.12 (unknown unit) 0.92-3.72 L = 45656) [facility] HospitalT-suppressor cells (CD8) as percent of blood lymphocytes 2018-11-21 12:10:00 Test Item Value Reference Range Interpretation Comments T-suppressor cells (CD8) as percent of 68.2 % 12.0-35.5 H blood lymphocytes (test code = 3517) [facility] Hospitalabsolute PC72528-77-07 12:10:00 Test Item Value Reference Range Interpretation Comments absolute CD8 (test code = 887 (unknown unit) 109-629 51407) [facility] HospitalHIV-1RNA, serum, by PCR, qrgylphzyqzz3789-12-53 12:10:00 Test Item Value Reference Range Interpretation Comments HIV-1RNA, serum, by PCR, 1250 /mL quantitative (test code = 19129-0) [facility] HospitalCD4/CD8 tbpvv5642-03-67 12:10:00 Test Item Value Reference Range Interpretation Comments CD4/CD8 ratio (test code 0.12 (unknown unit) 0.92-3.72 L = 31712) [facility] HospitalT-suppressor cells (CD8) as percent of blood lymphocytes 2018-11-21 12:10:00 Test Item Value Reference Range Interpretation Comments T-suppressor cells (CD8) as percent of 68.2 % 12.0-35.5 H blood lymphocytes (test code = 3517) [facility] Hospitalabsolute [id number] 12:10:00 Test Item Value Reference Range Interpretation Comments absolute CD8 (test code = 887 (unknown unit) 109-437 19775) [facility] HospitalLDL cholesterol, pbrvs6667-67-81 09:58:00 Test Item Value Reference Range Interpretation Comments LDL cholesterol, serum (test code = 107 mg/dL 0-99 H 2088-08) [facility] Hospitalvery low density kqmxgsllhbdf6343-16-27 09:58:00 Test Item Value Reference Range Interpretation Comments very low density lipoproteins (test 21 mg/dL 5-40 code = 2091-7) [facility] HospitalHDL cholesterol, dxrmt7005-30-32 09:58:00 Test Item Value Reference Range Interpretation Comments HDL cholesterol, serum (test code = 38 mg/dL >39 L 2085-04) [facility] Hospitaltriglyceride, serum, zxjphaw1339-15-46 09:58:00 Test Item Value Reference Range Interpretation Comments triglyceride, serum, fasting (test 105 mg/dL 0-149 code = 2571-8) [facility] Hospitalcholesterol, jelhk7368-76-80 09:58:00 Test Item Value Reference Range Interpretation Comments cholesterol, serum (test code = 166 mg/dL 844-062 5819-3) [facility] HospitalTreponema pallidum particle agglutination assay (TPPA test)2018-09-05 09:47:00 Test Item Value Reference Range Interpretation Comments Treponema pallidum particle Positive Negative A agglutination assay (TPPA test) (test code = 96419-4) [facility] Hospitalrapid plasma reagin antibody, xjpss2354-19-20 09:47:00 Test Item Value Reference Range Interpretation Comments rapid plasma reagin 1:4 See_Comment H [Automa robert message] The antibody, serum (test system which generated code = 5291-0) this result t ransmitted reference range : NonRea<1:1. The reference range was not u sed to interpret this result as normal/abnormal . [facility] Hospitalalanine aminotransferase (SGPT), lghsg8750-91-56 09:47:00 Test Item Value Reference Range Interpretation Comments alanine aminotransferase (SGPT), serum 51 1/L 0-44 H (test code = 1742-6) [facility] Hospitalaspartate aminotransferase (SGOT), dwmrh5229-99-16 09:47:00 Test Item Value Reference Range Interpretation Comments aspartate aminotransferase (SGOT), 47 1/L 0-40 H serum (test code = 1920-8) [facility] Hospitalalkaline phosphatase, aeucj2264-16-79 09:47:00 Test Item Value Reference Range Interpretation Comments alkaline phosphatase, serum (test code 87 1/L 39-117 = 1783-0) [facility] Hospitalbilirubin, serum, rbgzg8027-79-31 09:47:00 Test Item Value Reference Range Interpretation Comments bilirubin, serum, total (test code 0.3 mg/dL 0.0-1.2 = 1975-2) [facility] Hospitalalbumin/globulin ratio, ajkbj2448-64-59 09:47:00 Test Item Value Reference Range Interpretation Comments albumin/globulin ratio, 1.3 (unknown unit) 1.2-2.2 serum (test code = 1759-0) [facility] Healthglobulin, ptnud4345-70-46 09:47:00 Test Item Value Reference Range Interpretation Comments globulin, serum (test code 3.2 (unknown unit) 1.5-4.5 = 2336-6) [facility] Healthalbumin, jzbhi5192-73-23 09:47:00 Test Item Value Reference Range Interpretation Comments albumin, serum (test code = 1751-7) 4.3 g/dL 3.5-5.5 [facility] Hospitalprotein, total, pckvn0995-94-71 09:47:00 Test Item Value Reference Range Interpretation Comments protein, total, serum (test code = 7.5 g/dL 6.0-8.5 2885-2) [facility] Hospitalcalcium, mymej4568-95-19 09:47:00 Test Item Value Reference Range Interpretation Comments calcium, serum (test code = 1999-8) 8.9 mg/dL 8.7-10.2 [facility] Hospitalcarbon dioxide, venous wrpil8355-40-38 09:47:00 Test Item Value Reference Range Interpretation Comments carbon dioxide, venous blood (test 18 mmol/L 20-29 L code = 2026-1) [facility] Healthchloride, ajzii8882-30-76 09:47:00 Test Item Value Reference Range Interpretation Comments chloride, serum (test code = 109 mmol/L 96-106 H 5-0) [facility] Healthpotassium, ostxf2044-80-92 09:47:00 Test Item Value Reference Range Interpretation Comments potassium, serum (test code = 4.3 mmol/L 3.5-5.2 2823-3) [facility] Hospitalsodium, kkpna4035-54-48 09:47:00 Test Item Value Reference Range Interpretation Comments sodium, serum (test code = 2951-2) 141 mmol/L 134-144 [facility] Hospitalurea nitrogen/creatinine ratio, ykayl3756-36-40 09:47:00 Test Item Value Reference Range Interpretation Comments urea nitrogen/creatinine 10 (unknown unit) 9-20 ratio, serum (test code = 3097-3) [facility] HealtheGFR if Fgvzxetv9321-75-52 09:47:00 Test Item Value Reference Range Interpretation Comments eGFR if 91 mL/min/{1.73 m2} >59 (test code = 20068-5) [facility] HospitalEstimated Glomerular Filtration Rate (calc)2018-09-05 09:47:00 Test Item Value Reference Range Interpretation Comments Estimated Glomerular 79 mL/min/{1.73 m2} >59 Filtration Rate (calc) (test code = 62934-1) [facility] Hospitalcreatinine, bnwlv5961-49-76 09:47:00 Test Item Value Reference Range Interpretation Comments creatinine, serum (test code = 1.10 mg/dL 0.76-1.27 0-0) [facility] nitrogen, vitdi9787-05-73 09:47:00 Test Item Value Reference Range Interpretation Comments urea nitrogen, blood (test code = 11 mg/dL -24 3094-0) [facility] Hospitalblood glucose, hjclvh0038-83-68 09:47:00 Test Item Value Reference Range Interpretation Comments blood glucose, random (test code = 89 mg/dL 65-99 2339-0) [facility] Hospitalimmature granulocytes, percentage of total cells, blood 2018-09-05 09:47:00 Test Item Value Reference Range Interpretation Comments immature granulocytes, percentage of 0 % total cells, blood (test code = 11829-6) [facility] Healthbasophil count, pwvnrsly4575-74-42 09:47:00 Test Item Value Reference Range Interpretation Comments basophil count, absolute (test 0.0 x10E3/uL 0.0-0.2 code = 60645-8) [facility] HealthEosinophil Absolute Ylyvc7927-64-10 09:47:00 Test Item Value Reference Range Interpretation Comments Eosinophil Absolute Count (test 0.3 X10E3/UL 0.0-0.4 code = 77231-3) [facility] Hospitalmonocyte count, blood, mzgmxswnk2437-72-42 09:47:00 Test Item Value Reference Range Interpretation Comments monocyte count, blood, automated 0.5 X10E3/UL 0.1-0.9 (test code = 742-7) [facility] Hospitallymphocyte count, blood, zlzgtydxe6836-86-02 09:47:00 Test Item Value Reference Range Interpretation Comments lymphocyte count, blood, 0.9 X10E3/UL 0.7-3.1 automated (test code = 731-0) [facility] HospitalAbsolute Dlpiwafhyks9323-56-25 09:47:00 Test Item Value Reference Range Interpretation Comments Absolute Neutrophils (test code 1.4 X10E3/UL 1.4-7.0 = 46974-4) [facility] Hospitalbasophils as percent of blood cwigcdjlfh7868-32-47 09:47:00 Test Item Value Reference Range Interpretation Comments basophils as percent of blood 1 % leukocytes (test code = 707-0) [facility] Healtheosinophils as percent of blood rzzpbwyzwz5328-74-33 09:47:00 Test Item Value Reference Range Interpretation Comments eosinophils as percent of blood 10 % leukocytes (test code = 713-8) [facility] Healthmonocytes as percent of blood jvcwawwfvl6163-06-58 09:47:00 Test Item Value Reference Range Interpretation Comments monocytes as percent of blood 15 % leukocytes (test code = 5905-5) [facility] Hospitallymphocytes as percent of blood jmjpvdkdru1868-51-24 09:47:00 Test Item Value Reference Range Interpretation Comments lymphocytes as percent of blood 29 % leukocytes (test code = 736-9) [facility] Hospitalneutrophils as percent of blood pgrcyhlosg3027-49-30 09:47:00 Test Item Value Reference Range Interpretation Comments neutrophils as percent of blood 45 % leukocytes (test code = 770-8) [facility] Hospitalplatelet fctvb4084-25-80 09:47:00 Test Item Value Reference Range Interpretation Comments platelet count (test code = 95 X10E3/UL 150-379 LL 777-3) [facility] Hospitalred blood cell distribution aragr7061-98-83 09:47:00 Test Item Value Reference Range Interpretation Comments red blood cell distribution width 14.6 % 12.3-15.4 (test code = 788-0) [facility], FBZ8310-21-09 09:47:00 Test Item Value Reference Range Interpretation Comments mean corpuscular hemoglobin 37.3 G/DL 31.5-35.7 H concentration, RBC (test code = 786-4) [facility] hemoglobin, NZZ1473-10-42 09:47:00 Test Item Value Reference Range Interpretation Comments mean corpuscular hemoglobin, RBC 34.8 pg 26.6-33.0 H (test code = 785-6) [facility] corpuscular volume, [id number] 09:47:00 Test Item Value Reference Range Interpretation Comments mean corpuscular volume, RBC (test code 93 fL 79-97 = 787-2) [facility] Hospitalhematocrit, afxgw6044-04-09 09:47:00 Test Item Value Reference Range Interpretation Comments hematocrit, blood (test code = 4544-3) 36.7 % 37.5-51.0 L [facility] Hospitalhemoglobin, wkqod0730-37-37 09:47:00 Test Item Value Reference Range Interpretation Comments hemoglobin, blood (test code = 13.7 g/dL 13.0-17.7 718-7) [facility] Hospitalerythrocyte (RBC) utwhx6140-14-96 09:47:00 Test Item Value Reference Range Interpretation Comments erythrocyte (RBC) count (test 3.94 X10E6/UL 4.14-5.80 L code = 789-8) [facility] Hospitalleukocyte count, inkfc5984-18-56 09:47:00 Test Item Value Reference Range Interpretation Comments leukocyte count, blood (test 3.1 X10E3/UL 3.4-10.8 L code = 6690-2) [facility] HospitalT-helper cells (CD4) as percent of blood lymphocytes 2018-09-05 09:47:00 Test Item Value Reference Range Interpretation Comments T-helper cells (CD4) as percent of 10.1 % 30.8-58.5 L blood lymphocytes (test code = 8123-2) [facility] HospitalT-helper cells (CD4) ggmfu3620-74-74 09:47:00 Test Item Value Reference Range Interpretation Comments T-helper cells (CD4) count (test code 91 /UL 359-1519 L = 88675-9) [facility] HospitalHIV genotype zjjpdz5302-00-71 09:47:00 Test Item Value Reference Range Interpretation Comments HIV genotype result (test code = GENRTI 76628) [facility] HospitalHIV-1RNA, serum, by PCR, iiplqavbtqdw4438-51-56 09:47:00 Test Item Value Reference Range Interpretation Comments HIV-1RNA, serum, by PCR, 3060 /mL quantitative (test code = 81108) [facility] HospitalCD4/CD8 lttmt9455-70-55 09:47:00 Test Item Value Reference Range Interpretation Comments CD4/CD8 ratio (test code 0.16 (unknown unit) 0.92-3.72 L = 90405) [facility] HospitalT-suppressor cells (CD8) as percent of blood lymphocytes 2018-09-05 09:47:00 Test Item Value Reference Range Interpretation Comments T-suppressor cells (CD8) as percent of 64.1 % 12.0-35.5 H blood lymphocytes (test code = 3517) [facility] Hospitalabsolute [id number] 09:47:00 Test Item Value Reference Range Interpretation Comments absolute CD8 (test code = 577 (unknown unit) 057-742 25524) [facility] HospitalHIV genotype emcwpr0228-10-38 09:47:00 Test Item Value Reference Range Interpretation Comments HIV genotype result (test code = GENRTI 36601-7) [facility] HospitalHIV-1RNA, serum, by PCR, kqwgeomczjna3481-17-96 09:47:00 Test Item Value Reference Range Interpretation Comments HIV-1RNA, serum, by PCR, 3060 /mL quantitative (test code = 25938-1) [facility] HospitalCD4/CD8 imkzd1545-86-25 09:47:00 Test Item Value Reference Range Interpretation Comments CD4/CD8 ratio (test code 0.16 (unknown unit) 0.92-3.72 L = 40110) [facility] HospitalT-suppressor cells (CD8) as percent of blood lymphocytes 2018-09-05 09:47:00 Test Item Value Reference Range Interpretation Comments T-suppressor cells (CD8) as percent of 64.1 % 12.0-35.5 H blood lymphocytes (test code = 3517) [facility] Hospitalabsolute [id number] 09:47:00 Test Item Value Reference Range Interpretation Comments absolute CD8 (test code = 577 (unknown unit) 982-766 31669) [facility] HospitalNeisseria gonorrhoeae DNA tglmt7267-34-97 11:54:00 Test Item Value Reference Range Interpretation Comments Neisseria gonorrhoeae DNA probe Negative Negative (test code = 01285-9) [facility] Hospitalchlamydia DNA yauks9326-60-11 11:54:00 Test Item Value Reference Range Interpretation Comments chlamydia DNA probe (test code = Negative Negative 38473-9) [facility] HospitalNeisseria gonorrhoeae DNA fjhyx9560-47-57 11:54:00 Test Item Value Reference Range Interpretation Comments Neisseria gonorrhoeae DNA probe Negative Negative (test code = 99609-7) [facility] Hospitalhepatitis B surface tothxif7088-03-18 11:50:00 Test Item Value Reference Range Interpretation Comments hepatitis B surface antigen (test Negative Negative code = 79) [facility] Hospitalhepatitis B surface oatkewq1468-50-18 11:50:00 Test Item Value Reference Range Interpretation Comments hepatitis B surface antigen (test Negative Negative code = 75313-3) [facility] HospitalTreponema pallidum particle agglutination assay (TPPA test)2018-07-11 13:42:00 Test Item Value Reference Range Interpretation Comments Treponema pallidum particle Positive Negative A agglutination assay (TPPA test) (test code = 78401-6) [facility] Hospitalrapid plasma reagin antibody, zeega5222-88-12 13:42:00 Test Item Value Reference Range Interpretation Comments rapid plasma reagin 1:2 See_Comment H [Automa robert message] The antibody, serum (test system which generated code = 5291-0) this result t ransmitted reference range : NonRea<1:1. The reference range was not u sed to interpret this result as normal/abnormal . [facility] Hospitalhemoglobin A1C, blood, as % of total ajzefeugtm9208-70-97 13:42:00 Test Item Value Reference Range Interpretation Comments hemoglobin A1C, blood, as % of total 5.1 % 4.8-5.6 hemoglobin (test code = 4548-4) [facility] Hospitalprothrombin time (patient)2018-07-11 13:42:00 Test Item Value Reference Range Interpretation Comments prothrombin time (patient) (test code 10.4 s 9.1-12.0 = 5902-2) [facility] Hospitalinternational normalized ratio (INR)2018-07-11 13:42:00 Test Item Value Reference Range Interpretation Comments international normalized 1.0 (unknown unit) 0.8-1.2 ratio (INR) (test code = 6301-6) [facility] HospitalLDL cholesterol, ewxrn5707-71-40 13:42:00 Test Item Value Reference Range Interpretation Comments LDL cholesterol, serum (test TRIGHI mg/dL 0-99 code = 2089-1) [facility] Hospitalvery low density buocdaxbamaj6243-09-24 13:42:00 Test Item Value Reference Range Interpretation Comments very low density lipoproteins VLDLCH mg/dL 5-40 (test code = 2091-7) [facility] HospitalHDL cholesterol, uszod5934-15-46 13:42:00 Test Item Value Reference Range Interpretation Comments HDL cholesterol, serum (test code = 22 mg/dL >39 L 5-9) [facility] Hospitaltriglyceride, serum, idiukbq6973-29-73 13:42:00 Test Item Value Reference Range Interpretation Comments triglyceride, serum, fasting (test 480 mg/dL 0-149 H code = 2571-8) [facility] Hospitalcholesterol, uclzr5986-79-68 13:42:00 Test Item Value Reference Range Interpretation Comments cholesterol, serum (test code = 139 mg/dL 161-747 1670-3) [facility] Hospitalalanine aminotransferase (SGPT), zatpk9860-27-51 13:42:00 Test Item Value Reference Range Interpretation Comments alanine aminotransferase (SGPT), serum 39 1/L 0-44 (test code = 1742-6) [facility] Hospitalaspartate aminotransferase (SGOT), liyqa1940-48-50 13:42:00 Test Item Value Reference Range Interpretation Comments aspartate aminotransferase (SGOT), 46 1/L 0-40 H serum (test code = 1920-8) [facility] Hospitalalkaline phosphatase, vyywb8089-49-43 13:42:00 Test Item Value Reference Range Interpretation Comments alkaline phosphatase, serum (test code 78 1/L 39-117 = 1783-0) [facility] Hospitalbilirubin, serum, dexch2807-48-11 13:42:00 Test Item Value Reference Range Interpretation Comments bilirubin, serum, total (test code <0.2 mg/dL 0.0-1.2 = 1975-2) [facility] Hospitalalbumin/globulin ratio, enjct3340-83-23 13:42:00 Test Item Value Reference Range Interpretation Comments albumin/globulin ratio, 1.2 (unknown unit) 1.2-2.2 serum (test code = 1759-0) [facility] Healthglobulin, vysgh2878-42-01 13:42:00 Test Item Value Reference Range Interpretation Comments globulin, serum (test code 3.2 (unknown unit) 1.5-4.5 = 2336-6) [facility] Healthalbumin, ppdoi5554-47-91 13:42:00 Test Item Value Reference Range Interpretation Comments albumin, serum (test code = 1751-7) 3.8 g/dL 3.5-5.5 [facility] Healthprotein, total, dizzv5627-54-95 13:42:00 Test Item Value Reference Range Interpretation Comments protein, total, serum (test code = 7.0 g/dL 6.0-8.5 2885-2) [facility] Hospitalcalcium, ywmvu6374-16-02 13:42:00 Test Item Value Reference Range Interpretation Comments calcium, serum (test code = 1999-8) 8.7 mg/dL 8.7-10.2 [facility] Hospitalcarbon dioxide, venous hykee1783-49-74 13:42:00 Test Item Value Reference Range Interpretation Comments carbon dioxide, venous blood (test 21 mmol/L code = 2026-1) [facility] Hospitalchloride, vbaej2427-60-05 13:42:00 Test Item Value Reference Range Interpretation Comments chloride, serum (test code = 105 mmol/L 96-106 5-0) [facility] Healthpotassium, nohtd3966-61-54 13:42:00 Test Item Value Reference Range Interpretation Comments potassium, serum (test code = 4.1 mmol/L 3.5-5.2 2823-3) [facility] Hospitalsodium, uiytk1380-55-53 13:42:00 Test Item Value Reference Range Interpretation Comments sodium, serum (test code = 2951-2) 141 mmol/L 134-144 [facility] Hospitalurea nitrogen/creatinine ratio, qqgti0626-63-90 13:42:00 Test Item Value Reference Range Interpretation Comments urea nitrogen/creatinine 11 (unknown unit) 9-20 ratio, serum (test code = 3097-3) [facility] HealtheGFR if Totnweyz1366-24-02 13:42:00 Test Item Value Reference Range Interpretation Comments eGFR if 122 mL/min/{1.73 m2} >59 (test code = 84585-5) [facility] HospitalEstimated Glomerular Filtration Rate (calc)2018-07-11 13:42:00 Test Item Value Reference Range Interpretation Comments Estimated Glomerular 105 mL/min/{1.73 m2} >59 Filtration Rate (calc) (test code = 29143-5) [facility] Hospitalcreatinine, ojnoq4533-11-71 13:42:00 Test Item Value Reference Range Interpretation Comments creatinine, serum (test code = 0.82 mg/dL 0.76-1.27 0-0) [facility] Hospitalurea nitrogen, dawlz9397-14-81 13:42:00 Test Item Value Reference Range Interpretation Comments urea nitrogen, blood (test code = 9 mg/dL 6-24 3094-0) [facility] Hospitalblood glucose, zebscs5019-36-31 13:42:00 Test Item Value Reference Range Interpretation Comments blood glucose, random (test code = 88 mg/dL 65-99 2339-0) [facility] Hospitalimmature granulocytes, percentage of total cells, blood 2018-07-11 13:42:00 Test Item Value Reference Range Interpretation Comments immature granulocytes, percentage of 0 % total cells, blood (test code = 13664-4) [facility] Healthbasophil count, qryjzguq1542-95-19 13:42:00 Test Item Value Reference Range Interpretation Comments basophil count, absolute (test 0.0 x10E3/uL 0.0-0.2 code = 24310-1) [facility] HealthEosinophil Absolute Xedsm8725-04-42 13:42:00 Test Item Value Reference Range Interpretation Comments Eosinophil Absolute Count (test 0.3 X10E3/UL 0.0-0.4 code = 09078-3) [facility] Hospitalmonocyte count, blood, iwkosxxng9925-75-21 13:42:00 Test Item Value Reference Range Interpretation Comments monocyte count, blood, automated 0.3 X10E3/UL 0.1-0.9 (test code = 742-7) [facility] Hospitallymphocyte count, blood, mofuoodwp5051-44-09 13:42:00 Test Item Value Reference Range Interpretation Comments lymphocyte count, blood, 0.9 X10E3/UL 0.7-3.1 automated (test code = 731-0) [facility] HospitalAbsolute Yrbcytqpqqb5085-21-46 13:42:00 Test Item Value Reference Range Interpretation Comments Absolute Neutrophils (test code 1.2 X10E3/UL 1.4-7.0 L = 72595-3) [facility] Hospitalbasophils as percent of blood dupusgjviy6382-10-45 13:42:00 Test Item Value Reference Range Interpretation Comments basophils as percent of blood 0 % leukocytes (test code = 707-0) [facility] Healtheosinophils as percent of blood hhhebdnaua6099-06-73 13:42:00 Test Item Value Reference Range Interpretation Comments eosinophils as percent of blood 10 % leukocytes (test code = 713-8) [facility] Healthmonocytes as percent of blood awyuqgxfcr6225-47-11 13:42:00 Test Item Value Reference Range Interpretation Comments monocytes as percent of blood 12 % leukocytes (test code = 5905-5) [facility] Hospitallymphocytes as percent of blood bjfojkruxd4356-79-23 13:42:00 Test Item Value Reference Range Interpretation Comments lymphocytes as percent of blood 34 % leukocytes (test code = 736-9) [facility] Hospitalneutrophils as percent of blood onkmrhxuxf0010-19-74 13:42:00 Test Item Value Reference Range Interpretation Comments neutrophils as percent of blood 44 % leukocytes (test code = 770-8) [facility] Hospitalplatelet soiqo4066-90-24 13:42:00 Test Item Value Reference Range Interpretation Comments platelet count (test code = 61 X10E3/UL 150-379 LL 777-3) [facility] Hospitalred blood cell distribution giedk5458-19-81 13:42:00 Test Item Value Reference Range Interpretation Comments red blood cell distribution width 13.4 % 12.3-15.4 (test code = 788-0) [facility] corpuscular hemoglobin concentration, [id number] 13:42:00 Test Item Value Reference Range Interpretation Comments mean corpuscular hemoglobin 35.1 G/DL 31.5-35.7 concentration, RBC (test code = 786-4) [facility] corpuscular hemoglobin, [id number] 13:42:00 Test Item Value Reference Range Interpretation Comments mean corpuscular hemoglobin, RBC 31.8 pg 26.6-33.0 (test code = 785-6) [facility] corpuscular volume, [id number] 13:42:00 Test Item Value Reference Range Interpretation Comments mean corpuscular volume, RBC (test code 91 fL 79-97 = 787-2) [facility] Hospitalhematocrit, chfpr0698-20-98 13:42:00 Test Item Value Reference Range Interpretation Comments hematocrit, blood (test code = 4544-3) 38.8 % 37.5-51.0 [facility] Hospitalhemoglobin, axzqa7180-15-86 13:42:00 Test Item Value Reference Range Interpretation Comments hemoglobin, blood (test code = 13.6 g/dL 13.0-17.7 718-7) [facility] Hospitalerythrocyte (RBC) ccxdg6272-50-02 13:42:00 Test Item Value Reference Range Interpretation Comments erythrocyte (RBC) count (test 4.28 X10E6/UL 4.14-5.80 code = 789-8) [facility] Hospitalleukocyte count, addip7965-05-87 13:42:00 Test Item Value Reference Range Interpretation Comments leukocyte count, blood (test 2.7 X10E3/UL 3.4-10.8 L code = 6690-2) [facility] HospitalT-helper cells (CD4) as percent of blood lymphocytes 2018-07-11 13:42:00 Test Item Value Reference Range Interpretation Comments T-helper cells (CD4) as percent of 6.2 % 30.8-58.5 L blood lymphocytes (test code = 8123-2) [facility] HospitalT-helper cells (CD4) jgjbe0117-33-38 13:42:00 Test Item Value Reference Range Interpretation Comments T-helper cells (CD4) count (test code 56 /UL 359-1519 L = 02197-7) [facility] HospitalHIV-1RNA, serum, by PCR, jtbzlfkuqoea8770-16-53 13:42:00 Test Item Value Reference Range Interpretation Comments HIV-1RNA, serum, by PCR, 847273 /mL quantitative (test code = 20048) [facility] C virus genotype, PCR (Polymerase Chain Reaction)2018-07-11 13:42:00 Test Item Value Reference Range Interpretation Comments Hepatitis C virus genotype, PCR 1a (Polymerase Chain Reaction) (test code = 49306) [facility] C virus (HCV) RNA, PCR, bawgafjbltbf7371-66-44 13:42:00 Test Item Value Reference Range Interpretation Comments Hepatitis C virus (HCV) RNA, 8212331 [iU]/mL PCR, quantitative (test code = 79790) [facility] HospitalCD4/CD8 ygcmk7766-77-62 13:42:00 Test Item Value Reference Range Interpretation Comments CD4/CD8 ratio (test code 0.09 (unknown unit) 0.92-3.72 L = 88029) [facility] HospitalT-suppressor cells (CD8) as percent of blood lymphocytes 2018-07-11 13:42:00 Test Item Value Reference Range Interpretation Comments T-suppressor cells (CD8) as percent of 68.0 % 12.0-35.5 H blood lymphocytes (test code = 3517) [facility] Hospitalabsolute EI37122-15-00 13:42:00 Test Item Value Reference Range Interpretation Comments absolute CD8 (test code = 612 (unknown unit) 897-933 28020) [facility] HospitalHIV-1RNA, serum, by PCR, ivjgvhrbfavj1738-63-11 13:42:00 Test Item Value Reference Range Interpretation Comments HIV-1RNA, serum, by PCR, 381570 /mL quantitative (test code = 54953-1) [facility] HospitalHepatitis C virus genotype, PCR (Polymerase Chain Reaction)2018-07-11 13:42:00 Test Item Value Reference Range Interpretation Comments Hepatitis C virus genotype, PCR 1a (Polymerase Chain Reaction) (test code = 22072-3) [facility] C virus (HCV) RNA, PCR, tswfxggcjzgk8072-35-84 13:42:00 Test Item Value Reference Range Interpretation Comments Hepatitis C virus (HCV) RNA, 2809847 [iU]/mL PCR, quantitative (test code = 92298-9) [facility] HospitalCD4/CD8 ebmek5783-93-02 13:42:00 Test Item Value Reference Range Interpretation Comments CD4/CD8 ratio (test code 0.09 (unknown unit) 0.92-3.72 L = 60622) [facility] HospitalT-suppressor cells (CD8) as percent of blood lymphocytes 2018-07-11 13:42:00 Test Item Value Reference Range Interpretation Comments T-suppressor cells (CD8) as percent of 68.0 % 12.0-35.5 H blood lymphocytes (test code = 3517) [facility] [id number] 13:42:00 Test Item Value Reference Range Interpretation Comments absolute CD8 (test code = 612 (unknown unit) 731-619 46057) [facility] HospitalQuantiferon Gold TB blood test for tuberculosis screening 2018-05-16 16:16:00 Test Item Value Reference Range Interpretation Comments Quantiferon Gold TB blood test for Negative Negative tuberculosis screening (test code = 85874-4) [facility] HospitalNeisseria gonorrhoeae DNA [id number] 14:46:00 Test Item Value Reference Range Interpretation Comments Neisseria gonorrhoeae DNA probe Negative Negative (test code = 50588-8) [facility] Hospitalchlamydia DNA cerzt4000-94-37 14:46:00 Test Item Value Reference Range Interpretation Comments chlamydia DNA probe (test code = Negative Negative 49838-1) [facility] HospitalNeisseria gonorrhoeae DNA pxfkx3480-97-78 14:46:00 Test Item Value Reference Range Interpretation Comments Neisseria gonorrhoeae DNA probe Negative Negative (test code = 13623-6) [facility] HospitalTreponema pallidum Ab, wpuoq0068-45-47 14:34:00 Test Item Value Reference Range Interpretation Comments Treponema pallidum Ab, serum (test Reactive Non Reactive A code = 46866-1) [facility] Hospitalrapid plasma reagin antibody, [id number] 14:34:00 Test Item Value Reference Range Interpretation Comments rapid plasma reagin 1:4 See_Comment H [Automa robert message] The antibody, serum (test system which generated code = 5291-0) this result t ransmitted reference range : NonRea<1:1. The reference range was not u sed to interpret this result as normal/abnormal . [facility] Hospitalhepatitis C antibody, [id number] 14:34:00 Test Item Value Reference Range Interpretation Comments hepatitis C antibody, serum (test code >11.0 0.0-0.9 H = 5199-5) [facility] Hospitalalanine aminotransferase (SGPT), oifqg6842-12-05 14:34:00 Test Item Value Reference Range Interpretation Comments alanine aminotransferase (SGPT), serum 41 1/L 0-44 (test code = 1742-6) [facility] Hospitalaspartate aminotransferase (SGOT), hlval3774-85-65 14:34:00 Test Item Value Reference Range Interpretation Comments aspartate aminotransferase (SGOT), 45 1/L 0-40 H serum (test code = 1920-8) [facility] Hospitalalkaline phosphatase, xwzbo0568-49-96 14:34:00 Test Item Value Reference Range Interpretation Comments alkaline phosphatase, serum (test code 78 1/L 39-117 = 1783-0) [facility] Hospitalbilirubin, serum, azyng7039-98-51 14:34:00 Test Item Value Reference Range Interpretation Comments bilirubin, serum, total (test code 0.3 mg/dL 0.0-1.2 = 1975-2) [facility] Hospitalalbumin/globulin ratio, [id number] 14:34:00 Test Item Value Reference Range Interpretation Comments albumin/globulin ratio, 1.4 (unknown unit) 1.2-2.2 serum (test code = 1759-0) [facility] Healthglobulin, [id number] 14:34:00 Test Item Value Reference Range Interpretation Comments globulin, serum (test code 3.1 (unknown unit) 1.5-4.5 = 2336-6) [facility] Healthalbumin, [id number] 14:34:00 Test Item Value Reference Range Interpretation Comments albumin, serum (test code = 1751-7) 4.4 g/dL 3.5-5.5 [facility] Healthprotein, total, [id number] 14:34:00 Test Item Value Reference Range Interpretation Comments protein, total, serum (test code = 7.5 g/dL 6.0-8.5 2885-2) [facility] Healthcalcium, [id number] 14:34:00 Test Item Value Reference Range Interpretation Comments calcium, serum (test code = 1999-8) 8.9 mg/dL 8.7-10.2 [facility], venous [id number] 14:34:00 Test Item Value Reference Range Interpretation Comments carbon dioxide, venous blood (test 20 mmol/L code = 2026-1) [facility] Healthchloride, [id number] 14:34:00 Test Item Value Reference Range Interpretation Comments chloride, serum (test code = 100 mmol/L 96-106 2075-0) [facility] Hospitalpotassium, [id number] 14:34:00 Test Item Value Reference Range Interpretation Comments potassium, serum (test code = 4.2 mmol/L 3.5-5.2 2823-3) [facility] Healthsodium, [id number] 14:34:00 Test Item Value Reference Range Interpretation Comments sodium, serum (test code = 2951-2) 139 mmol/L 134-144 [facility] Healthurea nitrogen/creatinine ratio, [id number] 14:34:00 Test Item Value Reference Range Interpretation Comments urea nitrogen/creatinine 10 (unknown unit) 9-20 ratio, serum (test code = 3097-3) [facility] HealtheGFR if [id number] 14:34:00 Test Item Value Reference Range Interpretation Comments eGFR if 121 mL/min/{1.73 m2} >59 (test code = 89524-8) [facility] HospitalEstimated Glomerular Filtration Rate (calc)2018-05-02 14:34:00 Test Item Value Reference Range Interpretation Comments Estimated Glomerular 105 mL/min/{1.73 m2} >59 Filtration Rate (calc) (test code = 67450-5) [facility] Hospitalcreatinine, [id number] 14:34:00 Test Item Value Reference Range Interpretation Comments creatinine, serum (test code = 0.83 mg/dL 0.76-1.27 2160-0) [facility] nitrogen, [id number] 14:34:00 Test Item Value Reference Range Interpretation Comments urea nitrogen, blood (test code = 8 mg/dL 6-24 3094-0) [facility] Hospitalblood glucose, [id number] 14:34:00 Test Item Value Reference Range Interpretation Comments blood glucose, random (test code = 90 mg/dL 65-99 2339-0) [facility] Hospitalimmature granulocytes, percentage of total cells, blood 2018-05-02 14:34:00 Test Item Value Reference Range Interpretation Comments immature granulocytes, percentage of 0 % total cells, blood (test code = 65531-8) [facility] Hospitalbasophil count, [id number] 14:34:00 Test Item Value Reference Range Interpretation Comments basophil count, absolute (test 0.0 x10E3/uL 0.0-0.2 code = 41660-9) [facility] HospitalEosinophil Absolute [id number] 14:34:00 Test Item Value Reference Range Interpretation Comments Eosinophil Absolute Count (test 0.3 X10E3/UL 0.0-0.4 code = 11014-1) [facility] Hospitalmonocyte count, blood, fnnjgqfcs9706-43-98 14:34:00 Test Item Value Reference Range Interpretation Comments monocyte count, blood, automated 0.5 X10E3/UL 0.1-0.9 (test code = 742-7) [facility] Hospitallymphocyte count, blood, [id number] 14:34:00 Test Item Value Reference Range Interpretation Comments lymphocyte count, blood, 0.8 X10E3/UL 0.7-3.1 automated (test code = 731-0) [facility] HospitalAbsolute [id number] 14:34:00 Test Item Value Reference Range Interpretation Comments Absolute Neutrophils (test code 2.3 X10E3/UL 1.4-7.0 = 10388-3) [facility] Hospitalbasophils as percent of blood [id number] 14:34:00 Test Item Value Reference Range Interpretation Comments basophils as percent of blood 0 % leukocytes (test code = 707-0) [facility] Hospitaleosinophils as percent of blood zspnbkdjum4816-97-52 14:34:00 Test Item Value Reference Range Interpretation Comments eosinophils as percent of blood 7 % leukocytes (test code = 713-8) [facility] Healthmonocytes as percent of blood [id number] 14:34:00 Test Item Value Reference Range Interpretation Comments monocytes as percent of blood 14 % leukocytes (test code = 5905-5) [facility] Hospitallymphocytes as percent of blood udaahrudgq9852-63-91 14:34:00 Test Item Value Reference Range Interpretation Comments lymphocytes as percent of blood 19 % leukocytes (test code = 736-9) [facility] Hospitalneutrophils as percent of blood wadvsvsigi5931-27-90 14:34:00 Test Item Value Reference Range Interpretation Comments neutrophils as percent of blood 60 % leukocytes (test code = 770-8) [facility] Hospitalplatelet [id number] 14:34:00 Test Item Value Reference Range Interpretation Comments platelet count (test code = 87 X10E3/UL 150-379 LL 777-3) [facility] Hospitalred blood cell distribution [id number] 14:34:00 Test Item Value Reference Range Interpretation Comments red blood cell distribution width 13.7 % 12.3-15.4 (test code = 788-0) [facility] corpuscular hemoglobin concentration, [id number] 14:34:00 Test Item Value Reference Range Interpretation Comments mean corpuscular hemoglobin 36.1 G/DL 31.5-35.7 H concentration, RBC (test code = 786-4) [facility], [id number] 14:34:00 Test Item Value Reference Range Interpretation Comments mean corpuscular hemoglobin, RBC 34.1 pg 26.6-33.0 H (test code = 785-6) [facility] Hospitalmean corpuscular volume, [id number] 14:34:00 Test Item Value Reference Range Interpretation Comments mean corpuscular volume, RBC (test code 94 fL 79-97 = 787-2) [facility] Hospitalhematocrit, [id number] 14:34:00 Test Item Value Reference Range Interpretation Comments hematocrit, blood (test code = 4544-3) 40.4 % 37.5-51.0 [facility] Hospitalhemoglobin, [id number] 14:34:00 Test Item Value Reference Range Interpretation Comments hemoglobin, blood (test code = 14.6 g/dL 13.0-17.7 718-7) [facility] Hospitalerythrocyte (RBC) [id number] 14:34:00 Test Item Value Reference Range Interpretation Comments erythrocyte (RBC) count (test 4.28 X10E6/UL 4.14-5.80 code = 789-8) [facility] Hospitalleukocyte count, [id number] 14:34:00 Test Item Value Reference Range Interpretation Comments leukocyte count, blood (test 3.9 X10E3/UL 3.4-10.8 code = 6690-2) [facility] HospitalT-helper cells (CD4) as percent of blood lymphocytes 2018-05-02 14:34:00 Test Item Value Reference Range Interpretation Comments T-helper cells (CD4) as percent of 8.1 % 30.8-58.5 L blood lymphocytes (test code = 8123-2) [facility] HospitalT-helper cells (CD4) [id number] 14:34:00 Test Item Value Reference Range Interpretation Comments T-helper cells (CD4) count (test code 65 /UL 359-1519 L = 09573-5) [facility] Hospitalhepatitis A antibody, [id number] 14:34:00 Test Item Value Reference Range Interpretation Comments hepatitis A antibody, total (test Positive Negative A code = 75) [facility] Hospitalpat[facility] B core antibody, [id number] 14:34:00 Test Item Value Reference Range Interpretation Comments hepatitis B core antibody, total Negative Negative (test code = 77) [facility] Hospitalhepatitis B surface [id number] 14:34:00 Test Item Value Reference Range Interpretation Comments hepatitis B surface antigen (test Negative Negative code = 79) [facility] HospitalHIV-2 antibodies, western [id number] 14:34:00 Test Item Value Reference Range Interpretation Comments HIV-2 antibodies, western blot (test Negative Negative code = 92793) [facility] HospitalHIV-1/HIV-2 Ab, [id number] 14:34:00 Test Item Value Reference Range Interpretation Comments HIV-1/HIV-2 Ab, serum (test code = Positive Negative A 3599) [facility] HospitalHIV-CMIA (Chemiluminescent Microparticle Immuno Assay) 2018-05-02 14:34:00 Test Item Value Reference Range Interpretation Comments HIV-CMIA (Chemiluminescent Reactive Non Reactive A Microparticle Immuno Assay) (test code = 796653) [facility] Hospitalhuman leukocyte antigen [id number] 14:34:00 Test Item Value Reference Range Interpretation Comments human leukocyte antigen B57 (test Negative code = 549570) [facility] Hospitaltoxoplasma gondii antibody, [id number] 14:34:00 Test Item Value Reference Range Interpretation Comments toxoplasma gondii antibody, IgG (test <3.0 0.0-7.1 code = 2430) [facility] Hospitalpat[facility] B surface [id number] 14:34:00 Test Item Value Reference Range Interpretation Comments hepatitis B surface antibody (test Reactive code = 78) [facility] HospitalHIV-1RNA, serum, by PCR, [id number] 14:34:00 Test Item Value Reference Range Interpretation Comments HIV-1RNA, serum, by PCR, 066346 /mL quantitative (test code = 74353) [facility] HospitalCD4/CD8 [id number] 14:34:00 Test Item Value Reference Range Interpretation Comments CD4/CD8 ratio (test code 0.13 (unknown unit) 0.92-3.72 L = 33631) [facility] HospitalT-suppressor cells (CD8) as percent of blood lymphocytes 2018-05-02 14:34:00 Test Item Value Reference Range Interpretation Comments T-suppressor cells (CD8) as percent of 64.2 % 12.0-35.5 H blood lymphocytes (test code = 3517) [facility] Hospitalabsolute [id number] 14:34:00 Test Item Value Reference Range Interpretation Comments absolute CD8 (test code = 514 (unknown unit) [phone]) [facility] Hospitalhepatitis A antibody, [id number] 14:34:00 Test Item Value Reference Range Interpretation Comments hepatitis A antibody, total (test Positive Negative A code = 97102-5) [facility] Hospitalhepatitis B core antibody, [id number] 14:34:00 Test Item Value Reference Range Interpretation Comments hepatitis B core antibody, total Negative Negative (test code = 97883-4) [facility] Hospitalhepatitis B surface [id number] 14:34:00 Test Item Value Reference Range Interpretation Comments hepatitis B surface antigen (test Negative Negative code = 14781-2) [facility] HospitalTreponema pallidum Ab, [id number] 14:34:00 Test Item Value Reference Range Interpretation Comments Treponema pallidum Ab, serum (test Reactive Non Reactive A code = 95640-0) [facility] HospitalHIV-2 antibodies, western [id number] 14:34:00 Test Item Value Reference Range Interpretation Comments HIV-2 antibodies, western blot (test Negative Negative code = 05026-7) [facility] HospitalHIV-1/HIV-2 Ab, [id number] 14:34:00 Test Item Value Reference Range Interpretation Comments HIV-1/HIV-2 Ab, serum (test code = Positive Negative A 65922-5) [facility] HospitalHIV-CMIA (Chemiluminescent Microparticle Immuno Assay) 2018-05-02 14:34:00 Test Item Value Reference Range Interpretation Comments HIV-CMIA (Chemiluminescent Reactive Non Reactive A Microparticle Immuno Assay) (test code = 34661-0) [facility] Hospitalhuman leukocyte antigen [id number] 14:34:00 Test Item Value Reference Range Interpretation Comments human leukocyte antigen B57 (test Negative code = 490969) [facility] Hospitaltoxoplasma gondii antibody, [id number] 14:34:00 Test Item Value Reference Range Interpretation Comments toxoplasma gondii antibody, IgG (test <3.0 0.0-7.1 code = 5389-2) [facility] Hospitalhepatitis B surface [id number] 14:34:00 Test Item Value Reference Range Interpretation Comments hepatitis B surface antibody (test Reactive code = 73613-4) [facility] HospitalHIV-1RNA, serum, by PCR, [id number] 14:34:00 Test Item Value Reference Range Interpretation Comments HIV-1RNA, serum, by PCR, 921539 /mL quantitative (test code = 95519-3) [facility] HospitalCD4/CD8 [id number] 14:34:00 Test Item Value Reference Range Interpretation Comments CD4/CD8 ratio (test code 0.13 (unknown unit) 0.92-3.72 L = 46485) [facility] HospitalT-suppressor cells (CD8) as percent of blood lymphocytes 2018-05-02 14:34:00 Test Item Value Reference Range Interpretation Comments T-suppressor cells (CD8) as percent of 64.2 % 12.0-35.5 H blood lymphocytes (test code = 3517) [facility] Hospitalabsolute [id number] 14:34:00 Test Item Value Reference Range Interpretation Comments absolute CD8 (test code = 514 (unknown unit) [phone]) [facility] Notes Date/Time Note Provider Source 2021-06-27 06:54:00-00:00 [id number] [facility] [address] [place] [address] PATIENT NAME: KENRICK MONTES ADMIT DATE: ACCOUNT NO: [id number] ROOM NO: [facility] AGE: 50 REPORT TYPE: PROGRESS NOTE SEX: M ADMITTING PHYSICIAN:Chester Montiel MD ATTENDING PHYSICIAN:Chester Montiel MD DATE: 06/27/2021 PROGRESS NOTE PROBLEM: Acute probably viral gastroenteritis. SUBJECTIVE: The patient notes he is feeling much better. His diarrhea seemingly has stopped. He is having less abdominal discomfort. He did tolerate his oral intake well. OBJECTIVE: VITAL SIGNS: Temperature is 36.4, pulse of 78, r espirations of 18, blood pressure is 108/67. GENERAL: The patient is alert. He is in no acute distress. ABDOMEN: Soft with very minimal abdominal tender ness. No rebound. No guarding. LABORATORY STUDIES: Liver enzymes elevated with AST 106, ALT 67, alkaline phosphatase is 123. H and H is 11.3 and 33.5 with a WBC of 2100. Platelets are still low at 70,000. Stool studies and cultures thus far negative for ova and parasite, negative for C. di fficile toxin, negative for bacterial stool culture and infection. Cryptococcal antigen is nondetect ed. ASSESSMENT: The patient's clinical picture is im proved. His diarrhea has subsided with supportive therapy, and sy mptomatic management. He is tolerating oral intake at this time. Doubt need for further GI studies as patient clinically improves. PLAN: DIAGNOSTIC: None further at this time. W e will periodically follow up on liver enzymes, though the patient is noted to have chronic hepatitis C infection and plans to receive therapy in the outpatient [facility]. THERAPEUTIC: Continue present regimen. PATIENT EDUCATION: The patient informed of the shelia hilton. Dictated By: Ubaldo Fernandez Jr, MD WT: PN:PKINZA/RICHIE/HYUN Conf#: [id number]/DID#: [id number] PATIENT NAME: KENRICK MONTES [id number] Authenticated by Ubaldo Fernandez MD On 07:18:52 AM at 0718 PATIENT NAME: KENRICK MONTES [id number] 2021-06-27 05:07:00-00:00 [id number] [facility] [address] [place] [address] PATIENT NAME: KENRICK MONTES ADMIT DATE: ACCOUNT NO: [id number] ROOM NO: P.0603 AGE: 50 REPORT TYPE: PROGRESS NOTE SEX: M ADMITTING PHYSICIAN:Chester Montiel MD ATTENDING PHYSICIAN:Chester Montiel MD DATE: INFECTIOUS DISEASE PROGRESS NOTE SUBJECTIVE: The patient is alert and attentive, states he is feeling better. Diarrhea has ceased. Stool analyses are negative. Fever and chills are better. HIDA scan is negative. He is stable on oral ant imicrobial intervention. We will leave his primary care doctor on outpatient basis to restart his HIV therapy on an outpatient basis. Planning on 7 da ys of antibiotics under the circumstances. I have other serologies pending a t present time. Cryptococcal antigen at least is negative at this point. All notes have been reviewed, read, acknowledged and understood. Discussed in detail with nighttime nursing personnel. We will continue to follow while here . Nurses note no other issues from infectious disease standpoint through the e vening of concern. OBJECTIVE: VITAL SIGNS: Temperatures are all in centigrade. Blood pressure 108/67, pulse 78 per minute and regular, respirations are 18 p er minute. GENERAL: He is a well-developed, well-nourished man, feeling better. No acute distress. SKIN: No new visible lesions. NODES: None were palpable. HEENT: Has not changed. NECK: Supple. LUNGS: Scattered crackles and rhonchi. HEART: Regular rhythm without murmurs, gallops, or rubs. ABDOMEN: Soft, nontender. No hepatosplenomegaly. EXTREMITIES: No clubbing, cyanosis, or significa nt edema. NEUROLOGIC: No specific new focal findings. LABORATORY DATA AVAILABLE: Has been reviewed. IMPRESSION: Stable from infectious diseases margot dpoint, no new major issues noted. RECOMMENDATIONS: Continuing as is for no w. No antibiotic changes are indicated at present time, so far so good. We will adjust antimicrobial agents in the future when and if data and clinical circumstances dictate. At present time, we will plan on 7 days of these antimicrobials unless either the situation changes or other data suggest different interventions ar e warranted. Dictated By: Ashkan Greene Jr, MD PATIENT NAME: KENRICK MONTES Shelia [address] WT: PN:P.AZRA/LIYAH/NTS Conf#: [id number]/DID#: [id number] Authenticated by Ashkan Greene MD On 01:49:27 PM at 0149 PATIENT NAME: KENRICK MONTES [id number] 2021-06-26 06:44:00-00:00 [id number] [facility] [address] [place] [address] PATIENT NAME: KENRICK MONTES ADMIT DATE: ACCOUNT NO: [id number] ROOM NO: P.0603 AGE: 50 REPORT TYPE: PROGRESS NOTE SEX: M ADMITTING PHYSICIAN:Chester Montiel MD ATTENDING PHYSICIAN:Chester Montiel MD DATE: 06/26/2021 PROGRESS NOTE PROBLEM: 1. Acquired immunodeficiency syndrome. 2. Probably acute viral gastroenteritis. SUBJECTIVE: The patient indicates he is having l ess abdominal pain. His diarrhea; however, does persist with about 4 or 5 bowel movements. He is tolerating oral intake. OBJECTIVE: VITAL SIGNS: Temperature is 36.7, pulse of 87, r espirations of 17, and blood pressure 107/65. ABDOMEN: Soft, very minimal tenderness. No guard ing. LABORATORY STUDIES: Potassium is 3.5, glucose is 99, BUN of 8, creatinine is 0.8, calcium is 7.6, albumin is 3.8, AST is 87, ALT is 58. H and H is 10.9 and 32.8 with a WBC of 2300. Platelets 71,000. ASSESSMENT: The patient does have somewhat of a pancytopenia with a low white count, hemoglobin, and plate lets. This may be in part related to his underlying hepatitis C infection or it could be related to his primary hematological pathology. Thus far, stool s tudies are still pending, though C. difficile toxin is negative. Blood cultures thus far show no alexa wth. PLAN: DIAGNOSTIC: Follow up stool cultures and ova and parasites. THERAPEUTIC: Encourage use of cholestyramine to manage diarrhea. PATIENT EDUCATION: The patient advised of the ab ove. Dictated By: Ubaldo Fernandez Jr, MD WT: PN:ELENO/RICHIE/HYUN Conf#: [id number]/DID#: [id number] PATIENT NAME: KENRICK MONTES [id number] Authenticated by Ubaldo Fernandez MD On 07:18:47 AM at 0718 PATIENT NAME: KENRICK MONTES [id number] 2021-06-26 01:49:00-00:00 [id number] [facility] [address] [place] [address] PATIENT NAME: KENRICK MONTES ADMIT DATE: ACCOUNT NO: [id number] ROOM NO: [facility] AGE: 50 REPORT TYPE: PROGRESS NOTE SEX: M ADMITTING PHYSICIAN:Chester Montiel MD ATTENDING PHYSICIAN:Chester Montiel MD DATE: INFECTIOUS DISEASE PROGRESS NOTE SUBJECTIVE: The patient is a lert and attentive, comfortable at present time and gives me history that he has MAIC of the ulna in the past, not really GI tract at least in the past disease. No history of nonc ompliant with medications and followup and treatment. This is care at [facility]. He is supposed to be on Biktarvy but is not taking m edicines in a while. He has been HIV positive since 1995, he does not have a his tory of previous CMV syphilis or other issues other than his known ARI infection. Dr. Senthil jolley' workup is underway including stool analyses and alike and HIDA scan. I am going to simplify antibiotics, combination of Bactrim and Levaquin. Pending rep orts of studies are all in progress. Stool for O and P are negative. C. dif f is also negative at this point as well as other cultures. OBJECTIVE: VITAL SIGNS: Temperatures are in centigrade. Blo od pressure of 103/61, pulse 89 per minute and regular, respirations are 20 p er minute. GENERAL: He is a well-developed, well-nourished man, in no acute distress. SKIN: No new visible lesions. NODES: None were palpable. HEENT: Has not changed. NECK: Supple. LUNGS: Fairly clear. HEART: Regular rhythm without murmurs, gallops, or rubs. ABDOMEN: Soft, nontender. No hepatosplenomegaly. EXTREMITIES: No clubbing, cyanosis or significan t edema. NEUROLOGIC: No specific new focal findings. LABORATORY DATA AVAILABLE: Has been reviewed. IMPRESSION: Noncompliant patient, drug issues, n oncompliance issues, previous history of Mycobacterium avium-intracellulare co mplex infection, possible lingular pneumonia noted also. RECOMMENDATIONS: We will simplify antibi otics to Bactrim and Levaquin. Pending other studies. May need further SHEREEN treatment, b ut we will see what the GI workup shows before suggesti ng this. We will adjust antimicrobial agents at that juncture as data and clinical circumstances dict ate. Discussed in detail with the patient at bedside as well as nursing person karena. Dictated By: Ashkan Greene Jr, MD PATIENT NAME: KENRICK MONTES [id number] WT: PN:P.HIM/LIYAH/NTS Conf#: [id number]/DID#: [id number] Authenticated by Ashkan Greene MD On 03:38:48 PM at 0338 PATIENT NAME: KENRICK MONTES [id number] 2021-06-25 06:19:00-00:00 [id number] [facility] [address] [place] [address] PATIENT NAME: KENRICK MONTES ADMIT DATE: ACCOUNT NO: [id number] ROOM NO: P.0603 AGE: 50 REPORT TYPE: CONSULTATION SEX: M ADMITTING PHYSICIAN:Chester Montiel MD ATTENDING PHYSICIAN:Chester Montiel MD CONSULTATION DATE: 06/25/2021 CONSULTING PHYSICIAN: Ubaldo Fernandez Jr, MD GASTROENTEROLOGY CONSULTATION REPORT CONCLUSION: 1. Generalized abdominal pain associated with diarrhea x3 days. Rule out acute bacterial gastroenteritis. Rule out Clostridium difficile infection. Rule out intestinal parasitic infection. Rule out HIV-rel ated infection such as Mycobacterium avium-intracellulare or cytomegalo virus. 2. Chronic hepatitis C infection with activity, no reinstitution of therapy. 3. Abnormal gallbladder on CT scan and ultrasoun d. RECOMMENDATIONS: 1. Follow up stool for C. difficile toxin. 2. Stool for culture. 3. Stool for ova and parasites x2. 4. HIDA scan with ejection fraction. 5. Advance diet to a bland lactose-restricted di et. 6. Advised followup for management for hepatitis C. 7. Cholestyramine 4 g p.o. 3 times a day as need ed for diarrhea. DISCUSSION: A 50-year-old ivelisse carrasco with acquired immunodeficiency syndrome, is seen for evaluation of abdominal pain and diarrhea. T he patient indicates his symptoms began approximately 3 days ago. His abdominal pain as a sore feeling, generalized in nature. Diarrhea is up to 5 or 6 bowel movements a day. Stools tend to be loose and watery. It is of note the p atelma has not had any significant bowel movement since hospitalized. T he patient has not had any rectal bleeding with these events. Some degree o f anorexia was present. The patient presently does have an appetite. It is n oted the patient did have a colonoscopy approximately 6 months ago for color ectal cancer screening and it was unremarkable. REVIEW OF SYSTEMS: CARDIOPULMONARY: Occasional shortness of breath, generally with exertion. PAST MEDICAL HISTORY: Has in cluded acquired immunodeficiency syndrome with poor compliance. The patient states he has been on re gular medications for 2 years now. Chronic hepatitis C infection, treated with interferon and ribavirin, subsequently did not cure or apparently recurren ce. No recent treatment; however. Pneumonia, possibly PCP pneumonia on ch ronic antibiotic therapy. 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 Status post appende ctomy. Status post cervical PATIENT NAME: KENRICK MONTES [id number] lymph node biopsy, apparently for a study. Arlene eugene colonoscopy, December 2020. FAMILY HISTORY: Father living, history of multip le strokes. Mother living, history of heart disease. Siblings, one brother apparently, health status uncertain. ALLERGIES: NONE KNOWN. HABITS: The patient denies any significant cigar ette or alcohol use. The patient has history of drug abuse with methamphe tamines. MEDICATIONS: Prior to hospitalization had includ ed prednisone 40 mg a day, Biktarvy one tablet once a d ay, and Bactrim-DS 2 tablets apparently twice a day. PHYSICAL EXAMINATION: VITAL SIGNS: Height is 5 feet 11 inches, weight is 72.7 kg, temperature is 37.1, pulse of 89, respirations of 18, and blood pressure 100/58. GENERAL: The patient is well developed. He is ad equately nourished. No acute distress. SKIN: Moist. LYMPHATICS: No supraclavicular, no axillary wes opathy. HEENT: Eyes: Pupils are round. The patient is no t icteric. Nose: Nasal septum is in midline. No nasal polyps. Mouth: Gr ossly normal oral mucosa. NECK: Supple without palpable mass. LUNGS: Clear. No gross wheezing. ABDOMEN: Soft and flat. There is 2+ generalized abdominal tenderness with palpation. No rebound. No guarding. Tenderness, however, is generalized in nature. Liver and spleen not enlarged. EXTREMITIES: Slight deformity in the lef t elbow area. Otherwise, no peripheral edema. No gross deformities. NEUROLOGIC: The patient is alert. He is responsi ve. He is oriented. He has no focal deficits. PERTINENT LABORATORY STUDIES: Reveal potassium o f 3.8, glucose is 85, creatinine is 0.8, albumin i s 2.9, bilirubin is 0.8, AST 68, ALT is 60. H and H is 12.0 and 36.2 with a WBC of 3500. COVID test is negative. Urinalysis is negative. Abdominal ultrasound shows gallbladder wall thic kening, concerns of biliary dyskinesia or cholecystitis. CT scan also suggests distention of the gallbladder with some pericolic fluid. Some basilar density in the lung base as well. ASSESSMENT: The patient has generalized abdomina l discomfort associated with diarrhea, relatively acute i n onset. Diarrhea has a pattern, suggestive more of an infectious etiology. We would obtain stool st udies to further clarify. The patient has been on long-term antibiotics and th erefore Clostridium difficile infection also remains a concern. It is of note the patient did have a normal colonoscopy in about December and therefore significant lesion such as polyps or malignancy are unlikely. PATIENT NAME: KENRICK MONTES [id number] We will advance the patient's diet with lactose restriction. We will also utilize cholestyramine as needed for issues of d iarrhea. Thank you for letting me to share in the care of this patient. We will follow him along with you as needed during hospitalizat ion. Dictated By: Ubaldo Fernandez Jr, MD WT: CON:LEENO/RICHIE/HYUN Conf#: [id number]/DID#: [id number] Authenticated by Ubaldo Fernandez MD On 09:47:31 AM at 0948 PATIENT NAME: KENRICK MONTES [id number] 2021-06-24 19:35:00-00:00 [facility] ([facility]) EMERGENCY PROVIDER REPORT REPORT#:[id number] REPORT STATUS: Signed DATE:06/24/21 TIME: 1934 PATIENT: KENRICK MONTES UNIT #: [id number] ROOM: [facility] BED: 1 AGE: 50 SEX: M PCP PHYS: DOES_NOT KNOW SERVICE AUTHOR: Jens José * ALL edits or amendments must be made on the [employer]/computer document * HPI-General Illness Free Text HPI Notes Free Text HPI Notes PMH of HIV/AIDS (on bictarvy, last CD4 count in the 30s, noncompliant with prophylactic antibiotics, followed at [facility]), hepatitis C, methamphetamine abuse. Presents with complaint o f general malaise, productive cough, subjective fevers, abdominal pain , nonbloody diarrhea. Patient was seen here in the ED 11 days ago. Was febrile at that time (however, had just been using crystal meth) and was diagnosed with a possible pneumonia based on CXR/CT imaging. Was advised admissi on at that time but left AMA and was prescribed oral bactrim. States he had taken the antibiotic for 7 days but did not complete the last 3 days after leaving hi s medications at a different house. States he feels as if he has not gotten any better. Has been taking occasional ibuprofen, last dose this morning? No report ed headache, neck pain, sore throat, n/v, chest pain , rash. Has received one dose of a Covid-19 vaccine 2 mo nths ago. Has not received second dose. General Initial Greet Date/Time 06/24/21 1854 PCP [facility] Presentation Chief Complaint Abdominal pain, Cough, Diarrhea Hx Obtained From Patient Review of Systems ROS Statements All systems rev neg except as marked. Past Medical History - Adult Stated Complaint SHORTNESS OF BREATH Allergies Coded Allergies: No Known Allergies (06/13/21) Home Medications Active Scripts Sulfamethoxazole/Tmp (Bactrim Ds 800/160 Mg) 2 T AB PO Q12H Sulfamethoxazole/Tmp (Bactrim Ds 800/160 Mg) 2 TAB PO Q12H #40 TABS Prov: 06/13/21 Prednisone 40 MG PO DAILY Prednisone 40 MG PO DAILY #10 TABS Prov: 06/13/21 Reported Medications Bictegrav/Emtricit/Tenofov Ala (Biktarvy 50-200- 25 MG Tablet) Past Medical History: Reports: Alcoholism/subst ab use (Methamphetamine), AIDS, Cirrhosis, Hepatitis (C ), HIV. Past Surgical History: Reports: Appendectomy. Denies: CABG, Pacemaker. Family History: Reports: Hypertension. Alcohol Use Alcohol use Drug Use Meth/amphetamines Smoking status: Smoking status for patients 13 years old or old er: Current every day smoker Physical Exam Vital Signs Vital Signs First Documented: Result Date Time Pulse Ox 97 06/24 1850 B/P 124/77 06/24 1850 B/P Mean 92 06/24 1850 O2 Delivery Room air 06/24 1850 Temp 36.8 06/24 1850 Pulse 117 06/24 1850 Resp 24 06/24 1850 Last Documented: Result Date Time Pulse Ox 97 06/24 2221 B/P 117/81 06/24 2221 B/P Mean 93 06/24 2221 O2 Delivery Room air 06/24 2221 Pulse 97 06/24 2221 Resp 20 06/24 2221 Temp 36.8 06/24 1850 Review of Vital Signs Reviewed Physical Exam General/Const General/Const Awake, Alert, Cooperative, Not to xic appearing Ears/Nose/Throat Ears/Nose/Throat Airway patent MS Neck Neck Supple, No meningismus Resp/Chest Respiratory/Chest Breath sounds NL, Breath soun ds = bilat, No respiratory distress, No rales, No wheezing Cardiovascular Cardiovascular Regular rhythm, Heart sounds NL, No murmurs, Cap refill not delayed, Peripheral circulation NL Heart Rate/Rhythm Tachycardia. Abdomen/GI Abdomen/GI Soft, No guarding, No reboun d, No distention, No palpable mass, No pulsatile mass, Mild diffuse tenderness to palpa tion MS Lower Extrem Lower Ext/Pelvis/MS No edema Skin Skin Warm, Dry, Intact Neurologic Neurologic Oriented X3, Speech NL, No motor def icits, No sensory deficits Interpretation Diagnostics Lab Results Interpretation Results Laboratory Tests 06/24/215: [Embedded Image Not Available] Laboratory Tests: 06/24 Chemistry Sodium (136 - 145 mmol/L) 135 L Potassium (3.5 - 5.1 mmol/L) 3.9 Chloride (98 - 107 mmol/L) 105 Carbon Dioxide (20 - 31 mmol/L) 25 BUN (9 - 23 mg/dL) 9 Creatinine (0.70 - 1.30 mg/dL) 1.00 Glomerular Filtr Rate (>60 mL/min) >=60 max est imate Glucose (74 - 106 mg/dL) 68 L Lactic Acid (0.5 - 2.0 mmol/L) 1.30 Calcium (8.7 - 10.4 mg/dL) 8.1 L Total Bilirubin (0.3 - 1.2 mg/dL) 1.1 Direct Bilirubin (<0.3 mg/dL) 0.6 H AST (<34 U/L) 79 H ALT (10 - 49 U/L) 74 H Total Alk Phosphatase (46 - 116 U/L) 115 Total Protein (5.7 - 8.2 g/dL) 6.5 Albumin (3.2 - 4.8 g/dL) 3.3 Hematology WBC (4.8 - 10.8 x10 3/uL) 5.2 RBC (4.70 - 6.10 x10 6/uL) 4.45 L Hgb (14.0 - 18.0 g/dL) 13.8 L Hct (42.0 - 52.0 %) 41.4 L MCV (80.0 - 94.0 fL) 93.0 MCH (27 - 31 pg) 31.0 MCHC (33 - 36.5 G/DL) 33.3 RDW (12.9 - 16.9 %) 13.9 Plt Count (150 - 440 x10 3/uL) 87 L MPV (8.9 - 12.4 fL) 10.5 Neut % (Auto) (42.2 - 75.2 %) 69.7 Lymph % (Auto) (20.5 - 51.1 %) 15.1 L Laurel % (Auto) (1.7 - 9.3 %) 13.8 H Eos % (Auto) (0.0 - 7.0 %) 0.6 Baso % (Auto) (0 - 2.5 %) 0.4 Neut # (Auto) (1.80 - 7.70 x10 3/uL) 3.59 Lymph # (Auto) (1.00 - 4.80 x10 3/uL) 0.78 L Laurel # (Auto) (0.00 - 0.80 x10 3/uL) 0.71 Eos # (Auto) (0.00 - 0.45 x10 3/uL) 0.03 Baso # (Auto) (0.0 - 0.20 x10 3/uL) 0.02 Serology SARS-CoV-2 Ag (Rapid) (NEGATIVE) NEGATIVE Urines Urine Color (YELLOW DISCRIPT) YELLOW Urine Appearance (CLEAR DISCRIPT) CLEAR Urine pH (5.0 - 9.0) 6.0 Ur Specific [place] (1.005 - 1.030) 1.025 Urine Protein (NEGATIVE mg/dL) NEGATIVE Urine Glucose (UA) (NEGATIVE mg/dL) NEGATIVE Urine Ketones (NEGATIVE mg/dL) NEGATIVE Urine Blood (NEGATIVE) NEGATIVE Urine Nitrite (NEGATIVE) NEGATIVE Urine Bilirubin (NEGATIVE) NEGATIVE Urine Urobilinogen (0.2 - 1.0 mg/dL) 0.2 Ur Leukocyte Esterase (NEGATIVE) NEGATIVE Urine RBC (0 - 2 #RBC/HPF) 0-2 Urine WBC (0 - 2 #WBC/HPF) 0-2 Ur Squamous Epith Cells (NONE - TRACE /LPF) NON E SEEN Urine Bacteria (NONE - TRACE /HPF) OCCASIONAL A 06/24 1915 Chemistry Troponin I High Sens (38.73 - 80.22 pg/mL) < 2. 5 L Microbiology: Date/Time Procedure - Status Source Growth 06/24 1915 Blood Culture - RECD BLOOD 06/24 1915 Blood Culture Gram Stain - RECD BLOOD 06/24 1915 Blood Culture - RECD BLOOD 06/24 1915 Blood Culture Gram Stain - RECD BLOOD 06/24 1906 Urine Culture - ORD URINE Recent Impressions: RADIOLOGY - XR CHEST 1 V 06/24 1910 Report Impression - Status: SIGNED Entered: 06/24/20211931 Impression: No acute disease. Impression By: Jesica RICARDO M.D. CAT SCAN - CT ABD PELVIS W/CONT 06/24 2140 Report Impression - Status: SIGNED Entered: 06/24/20212218 Impression: Nonspecific right basilar density concerning fo r possible early consolidation and/or atelectasis Gallbladder distention with pericholecystic free fluid, recommend further evaluation ultrasound or HIDA scan Prominent colonic thickening is seen diffusely t hroughout with thumbprinting fatty replacement and prominent sergei wel enhancement noted more distally these findings are concerning for an acute on chronic inflammatory or infectious process Bladder wall thickening may reflect cystitis Additional findings as detailed above Impression By: [email or web address] - GILBERT [facility] Lab Imaging Statement Laboratory radiographic studies reviewed and con sidered in the medical decision-making. Point of Care Testing Pulse Oximetry Pulse Ox % 97 On: Room air Interpretation Interpreted by me, Pulse oximetr y normal Time 1850 ECG #1 Interpretation Text/Dict Note Rate 103 bpm, sinus tachycardia, otherwise arlene l. normal ELIOT, normal QRS duration, normal QT, no ST elevation Date 06/24/21 Time 1935 Interpreted by and reviewed by me, ED physician Re-Evaluation MDM Free Text MDM Notes Free Text MDM Notes Sepsis protocol initiated on arrival. Patient in itially given IV rocephin and azithromycin as well as PO bactrim for suspected pneumonia. IVFs ordered for tachycardia. CXR noted to wn l. CT A/P however with findings concerning for early right basilar infiltrate. Al so findings concerning for possible cholecystitis as well as a diffuse colitis. Also possible cystiti s, UA did have occasional bacteria noted. Patient given additional dose of IV flagyl. Patient improved with IVFs, tachycardia resolved . Noted to be sleeping comfortably on re-evaluation, easily arousable. Case d/w Li Eko, admitte d to hospitalist service for further evaluation and management. Sepsis Reassessment Date of exam: 06/24/21 Time of exam: 2220 Vital signs: T [.], P [97] bpm, BP [117/81], R [20] / min. O2 [97] Cardiac assessment: normal heart sounds, regular rate rhythm Respiratory assessment: clear to auscultation, n o respiratory distress noted Capillary refill assess: brisk Peripheral pulse assess: Radial pulse: 4+ Skin color: normal color ED Course Medication(s) Ordered Medication(s) Ordered: Anti-Infective Agents Sig/Mckenna Start time Last Medication Dose Route Stop Time Status Admin Metronidazole/Sodium 100 ML X1ED STA 06/24 2220 DC 06/24 Chloride IV 11/13 2319 2248 Trimethoprim/ 1 TAB X1ED STA 06/24 1906 DC 06/12 3 Sulfamethoxazole PO 06/24 Azithromycin 500 MG X1ED STA 06/24 190 DC 06/12 3 Sodium Chloride 250 ML IV 06/24 Ceftriaxone Sodium 1,000 MG X1ED STA 06/24 1905 DC 06/24 Sterile Water 10 ML IV 06/24 1909 192 Diagnostic Agents Sig/Mckenna Start time Last Medication Dose Route Stop Time Status Admin Iopamidol 0 .STK-MED ONE 06/24 2054 DC 06/24 IV 2145 Electrolytic, Caloric, And Agata Sig/Mckenna Start time Last Medication Dose Route Stop Time Status Admin Sodium Chloride 2,181.81 ML X1ED STA 06/24 190 DC 06/24 IV 06/24 1906 192 Gastrointestinal Drugs Sig/Mckenna Start time Last Medication Dose Route Stop Time Status Admin Ondansetron HCl 4 MG X1ED STA 06/24 1944 DC IV 06/24 Patient Discharge Departure Vital Signs/Condition Vital Signs First Documented: Result Date Time Pulse Ox 97 06/24 1850 B/P 124/77 06/24 1850 B/P Mean 92 06/24 1850 O2 Delivery Room air 06/24 185 Temp 36.8 06/24 1850 Pulse 117 06/24 1850 Resp 24 06/24 1850 Last Documented: Result Date Time Pulse Ox 97 06/24 2221 B/P 117/81 06/24 2221 B/P Mean 93 06/24 2221 O2 Delivery Room air 06/24 222 Pulse 97 06/24 2221 Resp 20 06/24 2221 Temp 36.8 06/24 1850 All vital signs available at the time of this en try have been reviewed. Clinical Impression Clinical Impression Primary Impression: AIDS Secondary Impressions: Colitis, POSSIBLE CHOLECY STITIS, POSSIBLE CYSTITIS, POSSIBLE PNEUMONIA Disposition Decision Admit Admit Physician Name Chester Montiel MD Admit Physician Hospitalist Request Time 2227 Request Date 06/24/21 )( Admission Accepts Yes )( Accepted Time 2227 )( Accepted Date 06/24/21 Call Information Spoke with kings Wang patient to hospitalist service Discharge/Care Plan Counseled Regarding Diagnosi s, Lab results, Imaging studies, Need for admission Quality Measures Sep: Lactate Ordered 18 years or older, Lactate lv ordered in ED Sep: Antibiotics Ordered 18 years or older, Anti biotics ordered in ED Sep: Fluid Resuscitation 18 years or older, Rec' d > 1 L crystalloid Sep: Repeat Lactate 18 years or older, 2nd lact lv not ordered (initial lactate wnl), initial lactate wnl Sep: Lactate Clearance 18 years or older Sepsis Bundle Initiated 18 years or older, Lacta te ordered, Blood cultures ordered, IV antibiotics ordered, IV fluid bolus ordered at 0051 RPT #[id number] END OF REPORT 2021-06-24 19:35:00-00:00 [id number] [place] [address] PATIENT NAME: KENRICK MONTES ADMIT DATE: ACCOUNT NO: [id number] ROOM NO: [facility] AGE: 50 REPORT TYPE: eELECTROCARDIOGRAM SEX: M ADMITTING PHYSICIAN: Chester Montiel MD ATTENDING PHYSICIAN: Chester Montiel MD Order: [id number] Test Reason : SHORTNESS OF BREATH Test Date/Time Stamp: SatJun 24 2021 19:35:04 Blood Pressure : / mmHG Vent. Rate : 103 BPM Atrial Rate : 103 BPM P-R Int : 136 ms QRS Dur : 084 ms QT Int : 354 ms P-R-T Axes : 063 056 067 degree s QTc Int : 463 ms Sinus tachycardia Otherwise normal ECG When compared with ECG of 13-JUN-2021 08:27, No significant change was found Confirmed by RICARDO MI MD ([id number]) on 021 11:48:28 AM Referred By: Self Referred Confirmed by:RICARDO CALZADA MD Electronically Signed by Ricardo Mi MD on at 1148 PATIENT NAME: KENRICK MONTES [id number] 2021-06-13 08:49:00-00:00 [facility] ([facility] EMERGENCY PROVIDER REPORT REPORT#:[id number] REPORT STATUS: Signed DATE:06/13/21 TIME: 0849 PATIENT: KENRICK MONTES UNIT #: [id number] ROOM: BED: AGE: 50 SEX: M PCP PHYS: No Primary or Family Ph ysician SERVICE AUTHOR: Lawrence Cannon MD * ALL edits or amendments must be made on the [employer]/computer document * HPI-General Illness Free Text HPI Notes Free Text HPI Notes 50-year-old male past medical history of AIDS, h ep C, methamphetamine abuse complaining of chest pain. P atient reports pain began at 8 PM last night in his left scapular region. 2 hours later he started u sing crystal meth. At 3 AM he says the pain began in his left chest an d feels "like a muscle pull ". Patient denies any fever or chills. Patient denies any o ther complaints. Patient has not taken Viagra, Cialis or anything of the like . Patient reports no prior episodes of similar pain. General Initial Greet Date/Time 06/13/21 0844 Presentation Chief Complaint Chest pain Risk-Chest Pain 40 and Over Risk Stratification )( Coronary Artery Disease Risk factors reviewed )( Thoracic Aortic Dissection Risk factors revie wed )( Pulmonary Embolism Risk factors reviewed )( AMI-Aspirin Aspirin Last 24 Hrs 325 mg )( HEART for MACE )( HEART for MACE Response Value History Mod index of suspicion 1 ECG Interpretation Nonspec repol disturb 1 Age Age 45 - 65 1 Risk Factors for CAD 3+ CAD risk factors 2 Total 5 Review of Systems ROS Statements All systems rev neg except as marked. Past Medical History - Adult Stated Complaint chest pain Allergies Coded Allergies: No Known Allergies (06/13/21) Past Medical History: Reports: Alcoholism/subst abuse, Hypertension, A IDS, Cirrhosis, HIV. Denies: Congestive heart failure, Co ronary artery disease, Anticoagulant therapy, Atrial flutter, Bleeding disorder, Cardiac dysrhythmias , Intracranial hemorrhage, Ischemic stroke, Pancreatitis, Prior MO. Past Surgical History: Reports: Appendectomy. Denies: CABG, Pacemaker. Family History: Reports: Hypertension. Alcohol Use Alcohol use Drug Use Meth/amphetamines Smoking status: Smoking status for patients 13 years old or old er: Current every day smoker Physical Exam Vital Signs Vital Signs First Documented: Result Date Time Pulse Ox 97 06/13 841 B/P 151/86 06/13 841 B/P Mean 107 06/13 841 Temp 38.6 06/13 841 Pulse 109 06/13 0841 Resp 21 06/13 841 Last Documented: Result Date Time Pulse Ox 99 06/13 1000 B/P 111/74 06/13 1000 B/P Mean 86 06/13 1000 Temp 37.2 06/13 1000 Pulse 110 06/13 1000 Resp 19 06/13 1000 Review of Vital Signs Reviewed Free Text PE Notes Free Text PE Notes General: grimacing in pain, clutching chest Head: Normocephalic atraumatic Eyes: EOMI, PERRLA, normal conjunctiva, no scler al icterus, HEENT: Airway patent, mucous membranes moist, ph arynx normal. Respiratory/chest: Breath sounds normal, breath sounds equal bilaterally, no respiratory distress, no rales, no rhonchi, no w heezing Cardiovascular: Heart rate elevated, regular rhy thm, heart sounds normal, peripheral circulation normal Abdomen/GI: Soft, no guardin g, no rebound, no distention, no hernia, no palpable mass, no pulsatile mass, nontender, MS back: Normal inspection, non-tender, no costo vertebral angle tenderness. Skin: Color normal, warm, dry, normal turgor. Extremities: No edema, full range of motion, michelle rovascularly intact. Neuro: Alert and oriented x3, cranial ne rves II through XII grossly intact, no motor deficit, no sensory deficit, no cerebellar signs, normal gait. Psych: Normal affect, normal mood, normal concen tration, normal insight, Interpretation Diagnostics Lab Results Interpretation Results Laboratory Tests 06/13/21 0845: [Embedded Image Not Available] 06/13/21 0845: [Embedded Image Not Available] Laboratory Tests: 06/1345 0845 0845 Chemistry Sodium (136 - 145 mmol/L) 140 Potassium (3.5 - 5.1 mmol/L) 4.0 Chloride (98 - 107 mmol/L) 109 H Carbon Dioxide (20 - 31 mmol/L) 27 BUN (9 - 23 mg/dL) 19 Creatinine (0.70 - 1.30 mg/dL) 0.90 Glomerular Filtr Rate (>60 mL/min) >=60 max est imate Glucose (74 - 106 mg/dL) 103 Lactic Acid (0.5 - 2.0 mmol/L) 0.90 Calcium (8.7 - 10.4 mg/dL) 7.9 L B-Natriuretic Peptide (<100 pg/mL) 24 Triglycerides (<150 mg/dL) 68 Cholesterol (<200 mg/dL) 106 LDL Cholesterol Measurd (<100 mg/dL) 71 HDL Cholesterol (<60 mg/dL) 31 Coronary Risk Interp 3.42 Lipase (12 - 53 U/L) 88 H Hematology WBC (4.8 - 10.8 x10 3/uL) 3.1 L RBC (4.70 - 6.10 x10 6/uL) 3.84 L Hgb (14.0 - 18.0 g/dL) 12.0 L Hct (42.0 - 52.0 %) 35.9 L MCV (80.0 - 94.0 fL) 93.5 MCH (27 - 31 pg) 31.3 H MCHC (33 - 36.5 G/DL) 33.4 RDW (12.9 - 16.9 %) 14.2 Plt Count (150 - 440 x10 3/uL) 52 L MPV (8.9 - 12.4 fL) 11.9 Neut % (Auto) (42.2 - 75.2 %) 56.5 Lymph % (Auto) (20.5 - 51.1 %) 26.5 Laurel % (Auto) (1.7 - 9.3 %) 13.2 H Eos % (Auto) (0.0 - 7.0 %) 3.2 Baso % (Auto) (0 - 2.5 %) 0.3 Neut # (Auto) (1.80 - 7.70 x10 3/uL) 1.75 L Lymph # (Auto) (1.00 - 4.80 x10 3/uL) 0.82 L [place] # (Auto) (0.00 - 0.80 x10 3/uL) 0.41 Eos # (Auto) (0.00 - 0.45 x10 3/uL) 0.10 Baso # (Auto) (0.0 - 0.20 x10 3/uL) 0.01 06/13 06/13 0845 1029 Chemistry Troponin I High Sens (38.73 - 80.22 pg/mL) < 2. 5 L Serology SARS-CoV-2 Ag (Rapid) (NEGATIVE) NEGATIVE Microbiology: Date/Time Procedure - Status Source Growth 11/02 0850 Blood Culture - RECD BLOOD 06/13 0850 Blood Culture Gram Stain - RECD BLOOD 06/13 0845 Blood Culture - RECD BLOOD 06/13 845 Blood Culture Gram Stain - RECD BLOOD Recent Impressions: RADIOLOGY - XR CHEST 1 V 06/13 0845 Report Impression - Status: SIGNED Entered: 06/13/2021 0959 IMPRESSION: There are minimal patchy opacities in the lung b ases bilaterally. This could be due to atelectasis or pneumonia. Impression By: Dinora FELIX M.D. CAT SCAN - CTA CHEST FOR PE 06/13 1005 Report Impression - Status: SIGNED Entered: 06/13/2021 1046 IMPRESSION: 1. No CT evidence for pulmonary embolism, aortic dissection or aneurysm. 2. Confluent airspace density within the lingula may represent atelectasis versus further pneumonitis. There is also minimal dependent atelectasis in bilateral lower lobes. 3. Prominence of pulmonary vessels which may ind icate pulmonary venous hypertension. 4. Splenomegaly. 5. Nodularity of the liver suggesting hepatic ci rrhosis. Impression By: Emeterio PEREZ M.D. Point of Care Testing Pulse Oximetry Pulse Ox % 97 On: Room air Time 0853 ECG #1 Interpretation Text/Dict Note Sinus tachycardia 107 bpm; no STEMI Time 0855 Interpreted by ED physician Re-Evaluation MDM Re-Evaluation/Progress #1 Text/Dict Note Patient aware of all results and that he require s admission; patient refuses admission and is leaving aga inst my advice patient demonstrates capacity to make healthcare decisions understands risk, b enefits, consequences of decision that he may return anytime. We will initiate patient on Bactrim as he has a history of AIDS he is encouraged to follow-up with his doctors and return immediately if worse. Time of Re-Eval 1119 ED Course Medication(s) Ordered Medication(s) Ordered: Anti-Infective Agents Sig/Mckenna Start time Last Medication Dose Route Stop Time Status Admin Ceftriaxone Sodium 1,000 MG X1ED STA 06/13 0845 DC 06/13 Sterile Water 10 ML IV 06/13 0849 0856 Central Nervous System Agents Sig/Mckenna Start time Last Medication Dose Route Stop Time Status Admin Aspirin 324 MG X1ED STA 06/13 0844 DC 06/13 PO 06/13 0900 0901 Morphine Sulfate 4 MG X1ED STA 06/13 0844 DC / IV 06/13 0845 0859 Morphine Sulfate 4 MG X1ED STA 06/13 0842 DC IV 06/13 0843 Diagnostic Agents Sig/Mckenna Start time Last Medication Dose Route Stop Time Status Admin Iopamidol 0 .STK-MED ONE 06/13 0948 DC 06/13 IV 1019 Electrolytic, Caloric, And Agata Sig/Mckenna Start time Last Medication Dose Route Stop Time Status Admin Sodium Chloride 1,000 ML X1ED STA 06/13 0845 DC 06/13 IV 06/13 0944 0901 Gastrointestinal Drugs Sig/Mckenna Start time Last Medication Dose Route Stop Time Status Admin Ondansetron HCl 4 MG X1ED STA 06/13 0844 DC IV 06/13 0845 0858 Patient Discharge Departure Vital Signs/Condition Vital Signs First Documented: Result Date Time Pulse Ox 97 06/13 0841 B/P 151/86 06/13 0841 B/P Mean 107 06/13 0841 Temp 38.6 06/13 0841 Pulse 109 06/13 0841 Resp 21 06/13 0841 Last Documented: Result Date Time Pulse Ox 99 06/13 1000 B/P 111/74 06/13 1000 B/P Mean 86 06/13 1000 Temp 37.2 06/13 1000 Pulse 110 06/13 1000 Resp 19 06/13 1000 All vital signs available at the time of this en try have been reviewed. Clinical Impression Clinical Impression Primary Impression: Pneumonia Secondary Impressions: Chest pain, SOB (shortnes s of breath) Disposition Decision Discharge )( Discharged to Home Yes )( Time 1120 )( Date 06/13/21 Discharge/Care Plan (Auto) Prescriptions Current Visit Scripts Sulfamethoxazole/Tmp (Bactrim Ds 800/160 Mg) 2 T AB PO Q12H Sulfamethoxazole/Tmp (Bactrim Ds 800/160 Mg) 2 TAB PO Q12H #40 TABS UNTIL FINISHED Prednisone 40 MG PO DAILY Prednisone 40 MG PO DAILY #10 TABS UNTIL FINISHED (5 DAYS) Patient Instructions ED Chest Pain, Uncertain Ca use, ED Pneumonia (Adult) Additional Instructions Return immediately for any new or worsened symp toms. Referrals Ashkan Greene Jr, MD (ID) Electronically Signed by Lawrence Cannon MD on 10/30 at 1129 RPT #:[id number] END OF REPORT 2021-06-13 08:27:00-00:00 [id number] [place] [address] PATIENT NAME: KENRICK MONTES ADMIT DATE: ACCOUNT NO: [id number] ROOM NO: AGE: 50 REPORT TYPE: eELECTROCARDIOGRAM SEX: M ADMITTING PHYSICIAN: ATTENDING PHYSICIAN: Order: [id number] Test Reason : Test Date/Time Stamp: SatJun 13 2021 08:27:00 Blood Pressure : / mmHG Vent. Rate : 111 BPM Atrial Rate : 111 BPM P-R Int : 130 ms QRS Dur : 088 ms QT Int : 336 ms P-R-T Axes : 070 057 073 degree s QTc Int : 456 ms Sinus tachycardia Otherwise normal ECG When compared with ECG of 10-JUN-2021 20:02, (Un confirmed) Vent. rate has increased BY 46 BPM QRS axis shifted left Criteria for Lateral infarct are no longer prese nt Criteria for Inferior infarct are no longer pres ent T wave inversion no longer evident in Lateral le ads Confirmed by RICARDO MI MD ([id number]) on 06/13/20 5:25:57 PM Referred By: Self Referred Confirmed by:RICARDO BAXTER MD Electronically Signed by Ricardo Mi MD on 10/02 at 1410 PATIENT NAME: KENRICK MONTES [id number]
[2023-02-18] MEDS ORDERED: VANCOMYCIN 1 GM/VIAL ONE (22:35)
[2023-02-18] MEDS ORDERED: MORPHINE 4 MG/ML SYR ONE (22:35)
[2023-02-18 22:36] LABS: Absolute Lymphocytes (CBC) 0.5 K/uL (0.7-4.9); Hematocrit 20.4 % (39.6-49.0); Lymphocytes % 29.4 % (15.3-44.8); MCV 98.1 fL (80-100); MPV 9.3 fL (7.6-11.3); RBC Red Blood Cell Count 2.08 M/uL (4.33-5.43)
[2023-02-18] MEDS ORDERED: NA CHLORIDE 0.9% 100 ML ONE (22:36)
[2023-02-18] MEDS ORDERED: IBUPROFEN 400 MG TAB ONE (22:36)
[2023-02-18] MEDS ORDERED: NA CHLORIDE 0.9% 250 ML ONE (22:36)
[2023-02-18] MEDS ORDERED: PIPERACIL/TAZO 3.375 GM VIAL IV ONE (22:36)
[2023-02-18] MEDS ORDERED: ONDANSETRON 4 MG/2 ML VIAL ONE (22:36)
[2023-02-18] MEDS ORDERED: NA CHLORIDE 0.9% 2,000 ML ONE (22:36)
[2023-02-18 22:54] LABS: Albumin 2.4 g/dL (3.4-5.0); Bilirubin Total 1.8 mg/dL (0.2-1.0); Potassium 3.3 mEq/L (3.5-5.1); Protein, Total 8.5 g/dL (6.4-8.2)
[2023-02-18] MEDS ORDERED: BENZONATATE 100 MG CAP PO ONE (23:56)
[2023-02-18] MEDS ORDERED: ALBUTEROL 2.5 MG/3 ML NEB SOL ONE (23:56)
[2023-02-18] MEDS ORDERED: MORPHINE 2 MG/ML SYR ONE (23:56)
[2023-02-18] MEDS ORDERED: guaiFENesin 100 MG/5 ML UCUP ONE (23:57)
[2023-02-18] MEDS ORDERED: IPRATROPIUM BROM 0.5MG/2.5ML ONE (23:57)
--- NOTE | 2023-02-19 | P.HP ---
Patient History Date of Service: 02/18/23 Physical Examination - Studies Laboratory Data (last 24 hrs) 02/18/23 22:15: APTT 48.4 H 02/18/23 22:15: Sodium 139, Potassium 3.3 L, BUN 10, Creatinine 1.01, Glucose 87, Total Bilirubin 1.8 H, AST 71 H, ALT 29, Alkaline Phosphatase 140 H 02/18/23 22:15: WBC 1.60 L, Hgb 6.9 L, Hct 20.4 L, Plt Count 29 L Microbiology Data (last 24 hrs): 02/18/23 22:20 Nasopharnyx Influenza Type A Antigen Screen - Final 02/18/23 22:20 Nasopharnyx Influenza Type B Antigen Screen - Final Assessment and Plan - Plan Assessment and plan Sepsis secondary to possibly HIV/AIDS lactic 3.0 Right lower lobe pneumonia-possibly pneumocystitis HIV positive-antiviral nonCompliant Neutropenia WBCs of 1.6 Severe anemia hemoglobin 6.9 Thrombocytopenia platelets 29 Hypocalcemia 7.0 Transaminitis AST 71 Hypoalbumin 2.4 Assessment and plan Sepsis secondary to possibly HIV/AIDS lactic 3.0-infectious disease consult Right lower lobe pneumonia-possibly pneumocystitis-IV fluids, IV vancomycin, Zosyn HIV positive-antiviral nonCompliant-infectious disease to start antivirals Neutropenia WBCs of 1.6 Severe anemia hemoglobin 6.9-type and cross Thrombocytopenia platelets 29-consider hematology /oncology consult Hypocalcemia 7.0-trend electrolytes replace as needed Transaminitis AST 71 Hypoalbumin 2.4 Diet regular Full code DVT Lovenox - Advance Directives Does patient have a Living Will: No Does patient have a Durable POA for Healthcare: No
--- NOTE | 2023-02-19 00:02 | ER ---
Nurse's Notes [facility] Name: Fly Montes Age: 52 yrs Sex: Male : 1970 Arrival Date: 02/18/2023 Time: 22:05 Bed 3 Private MD: Diagnosis: Acute on chronic liver failure, coagulopathy, liver cirrhosis, body wall edema, sepsis, right upper lung pneumonia, AIDS, history hepatitis C, elevated INR, pancytopenia Presentation: 02/18 22:13 Chief complaint: EMS states: called out for not feeling well, cough, shortness of as6 breath. Coronavirus screen: At this time, the client does not indicate any symptoms associated with coronavirus-19. Ebola Screen: No symptoms or risks identified at this time. Initial Sepsis Screen: Does the patient meet any 2 criteria? RR > 20 per min. Temp <36.0*C (96.8*F)) or > 38.3*C (100.9*F). HR > 90 bpm. Yes Does the patient have a suspected source of infection? Yes:. Risk Assessment: Do you want to hurt yourself or someone else? Patient reports no desire to harm self or others. Onset of symptoms was February 16, 2023. Care prior to arrival: Medication(s) given: Normal saline infusion, 500 mL, zofran 4 mg, IV initiated. 20 GA, in the left forearm. 22:13 Acuity: ETHAN 2 as6 22:13 Method Of Arrival: EMS: [facility] as6 Historical: - Allergies: 22:12 Tylenol; as6 - PMHx: 22:12 HIV; liver failure; hep c; as6 - PSHx: 22:12 neck; as6 - Immunization history:: Client reports receiving the 2nd dose of the Covid vaccine. - Social history:: Smoking status: Patient reports the use of cigarette tobacco products, smokes one pack cigarettes per day. - Family history:: not pertinent. Screenin:14 [facility] ED Fall Risk Assessment (Adult) Score/Fall Risk Level 0 - 2 = Low Risk. Abuse as6 screen: Denies threats or abuse. Denies injuries from another. Nutritional screening: No deficits noted. Tuberculosis screening: No symptoms or risk factors identified. Assessment: 22:13 General: Appears ill, slender, Behavior is calm, cooperative, drowsy, Reports chills as6 for fever for feeling ill for fatigue for. Pain: Complains of pain in generalized. Neuro: Level of Consciousness is obeys commands, lethargic, Oriented to person, place, time, situation. Cardiovascular: Capillary refill < 3 seconds Patient's skin is warm and dry. Respiratory: Respiratory effort is even, unlabored, Respiratory pattern is regular, symmetrical. GI: Abdomen is distended. Derm: Skin is dusky, jaundiced. 02/19 01:50 General: pt becoming increasingly more lethargic. provider aware. 02:20 General: pt becoming agitated, provider at bedside. as6 03:15 General: first unit of FFP started . as6 03:35 General: first unit of FFP ended. as6 03:40 General: second unit of FFP started . as6 03:45 General: first unit on blood started . as6 04:03 Respiratory: Ventilator assessment: ET Tube: 8.0 Ventilator Mode: Assist Control (AC) as6 Tidal Volume: 450 Respiratory Rate: 16 FiO2: 60 PEEP: 5 HOB > 30 degrees. 04:08 General: life flight now at bedside assuming care . as Vital Signs: 02/18 22:12 BP 130 / 84; Pulse 108; Resp 25 S; Temp 102.8(O); Pulse Ox 92% on R/A; Weight 72.57 kg as6 (R); Height 5 ft. 11 in. (R); Pain 4/10; 23:29 BP 97 / 51; Pulse 101; Resp 33 S; Pulse Ox 99% on R/A; as6 23:40 BP 105 / 69; Pulse 109; Resp 32 S; Temp 101.6(O); Pulse Ox 95% on 4 lpm NC; 6 02/19 01:14 BP 121 / 62; Pulse 133; Resp 32 S; Pulse Ox 94% on 3 lpm NC; as6 01:31 BP 116 / 60; Pulse 134; Resp 33 S; Temp 104.7(Ca); Pulse Ox 93% on 3 lpm NC; as 01:48 BP 90 / 51; Pulse 134; Resp 28 S; Temp 105(Ca); Pulse Ox 92% on 3 lpm NC; 02:59 BP 89 / 50; Pulse 124; Resp 16 A; Temp 102(Ca); Pulse Ox 97% on 100% FiO2 ETT vent; as6 03:17 BP 134 / 94; Pulse 130; Resp 15 A; Temp 101.5(Ca); Pulse Ox 94% on 60% FiO2 ETT vent; as6 03:54 BP 143 / 92; Pulse 131; Resp 16 A; Temp 100.2(Ca); Pulse Ox 96% on 60% FiO2 ETT vent; as6 02/18 22:12 Body Mass Index 22.32 (72.57 kg, 180.34 cm) as6 02/18 22:12 Pain Scale: Adult as6 ED Course: 02/18 22:11 Patient arrived in ED. as6 22:11 Arm band placed on. as6 22:12 Mendoza Mckeon MD is Attending Physician. sp4 22:14 Triage completed. as6 22:15 Initial lab(s) drawn, by me, sent to lab. First set of blood cultures drawn by me. rv 22:15 Inserted saline lock: 20 gauge in left forearm, using aseptic technique. Blood rv collected. 22:32 Second set of blood cultures drawn by me. rv 22:32 Inserted saline lock: 20 gauge in right forearm, using aseptic technique. Blood rv collected. 22:33 Gio Salgado, RN is Primary Nurse. rv 23:12 Bed in low position. Call light in reach. Side rails up X2. Client placed on continuous as6 cardiac and pulse oximetry monitoring. NIBP monitoring applied. 23:35 CT Chest, Abdomen, Pelvis - W/Contrast In Process Unspecified. EDMS 02/19 00:00 Ashkan Lo is Hospitalizing Provider. sp4 01:28 denied transfer to [facility] due to no ICU beds. spoke with Aimee Campos at transfer center.bc6 01:32 Heck cath inserted, using sterile technique, 16 Fr., by me, balloon inflated, to as6 gravity drainage, urine specimen collected. returned clear yellow urine. Patient tolerated well. 01:40 spoke with shelby elmore at [facility] transfer center. bc6 01:56 denied transfer due to no ICU beds spoke with shelby elmore at transfer center. bc6 02:00 Provided Education on: Blood Transfusion. as6 02:00 Consent for blood and/or blood product transfusion explained by staff, explained by as6 physician, verbal consent obtained and witnessed by Cr Michelle RN. 02:18 acceptance at [facility] ER with rona Ballard. bc6 02:38 Assisted provider with intubation using 8.0 mm ETT via oral route. ET tube secured at as6 27cm at the teeth. Set up intubation tray. Intubated by Mendoza Mckeon MD Placement verified by CO2 detector w/ + color change, auscultating bilateral breath sounds, CXR, Patient tolerated well. 02:44 NGT: inserted 14 Fr. other oral verified placement of air over stomach, verified return as6 of gastric contents, Placement verified by X-ray, to intermittent suction. 03:10 Assisted provider with central line placement. Set up central line tray. Triple lumen as6 line placed in right internal jugular. Line placed by Mendoza Mckeon MD Placement verified by blood return, Dressed with Tegaderm, Patient tolerated well. 03:25 Patient transferred, IV remains in place. as6 04:02 life flight ETA 5 min out. bc6 Administered Medications: 02/18 22:39 Drug: Ibuprofen PO 800 mg Route: PO; 02/19 04:14 Follow up: Response: No adverse reaction 02/18 22:39 Drug: morphine IVP or IV 4 mg Route: IVP; Infused Over: 4 mins; Site: right forearm; 02/19 04:14 Follow up: Response: No adverse reaction 02/18 22:39 Drug: Ondansetron IVP 4 mg Route: IVP; Site: right forearm; 02/19 04:14 Follow up: Response: No adverse reaction 02/18 22:39 Drug: NS 0.9% IV 1000 ml Route: IV; Rate: 1 bolus; Site: right forearm; 02/19 04:15 Follow up: Response: No adverse reaction; IV Status: Completed infusion; IV Intake: as6 1000ml 02/18 22:39 Drug: NS 0.9% IV 1000 ml Route: IV; Rate: 1 bolus; Site: right forearm; 02/19 04:16 Follow up: Response: No adverse reaction; IV Status: Completed infusion; IV Intake: as6 1000ml 02/18 22:52 Drug: vancoMYCIN IVPB 1 grams Route: IVPB; Infused Over: 2 hrs; Site: right forearm; 02/19 04:16 Follow up: Response: No adverse reaction; IV Status: Completed infusion; IV Intake: as6 250ml 02/18 22:52 Drug: Piperacillin-Tazobactam IVPB 3.375 grams Route: IVPB; Infused Over: 60 mins; Site: left forearm; 02/19 04:16 Follow up: Response: No adverse reaction; IV Status: Completed infusion; IV Intake: as6 100ml 02/18 23:58 Drug: morphine IVP or IV 2 mg Route: IVP; Infused Over: 4 mins; Site: left forearm; 02/19 04:16 Follow up: Response: No adverse reaction 02/18 23:58 Drug: Dextromethorphan-Guaifenesin PO Liquid 10 mg-100 mg/5 mL 10 ml Route: PO; 02/19 04:17 Follow up: Response: No adverse reaction 02/18 23:58 Drug: Tessalon Perle PO 200 mg Route: PO; 02/19 04:17 Follow up: Response: No adverse reaction 02/18 23:58 Drug: DuoNeb Nebulize (3:1) (2.5 mg - 0.5 mg) 3 ml Route: Nebulizer; 02/19 04:18 Follow up: Response: No adverse reaction as6 01:05 Drug: Albumin IVPB 25 grams Volume: 100 ml; Route: IVPB; Site: left forearm; rv 04:19 Follow up: Response: No adverse reaction; IV Status: Completed infusion; IV Intake: as6 100ml 01:48 Drug: Ketorolac IVP 30 mg Route: IVP; Site: right forearm; as6 04:18 Follow up: Response: No adverse reaction as6 01:48 Drug: diphenhydrAMINE IVP 25 mg Route: IVP; Site: right forearm; as6 04:18 Follow up: Response: No adverse reaction as6 02:30 Drug: Albumin IVPB 25 grams Volume: 100 ml; Route: IVPB; Site: left forearm; as6 04:19 Follow up: Response: No adverse reaction; IV Status: Completed infusion; IV Intake: as6 100ml 02:35 Drug: Etomidate IVP 40 mg Route: IVP; Site: right forearm; as6 04:18 Follow up: Response: No adverse reaction as6 02:36 Drug: Rocuronium IVP 100 mg Route: IVP; Site: right forearm; as6 04:18 Follow up: Response: No adverse reaction as6 02:46 Drug: fentaNYL (PF) IV 25 mcg/kg/h Route: IV; Rate: calculated rate; Site: right as6 forearm; 04:19 Follow up: Response: No adverse reaction; IV Status: Infusion continued upon transfer; as6 IV Intake: 20ml 02:51 Drug: Midazolam IVP or IV 0.01 mg/kg/h Route: IV; Rate: calculated rate; Site: right as6 forearm; 04:19 Follow up: Response: No adverse reaction; IV Status: Infusion continued upon transfer; as6 IV Intake: 10ml 02:58 Drug: Norepinephrine IV 0.1 mcg/kg/min Route: IV; Rate: calculated rate; Site: left as6 forearm; 04:20 Follow up: Response: No adverse reaction; IV Status: Infusion continued upon transfer; as6 Order to discontinue infusion; IV Intake: 10ml Medication: 02/18 23:12 VIS not applicable for this client. as6 Intake: 02/19 04:15 IV: 1000ml; Total: 1000ml. as6 04:16 IV: 1000ml; Total: 2000ml. as6 04:16 IV: 250ml; Total: 2250ml. as6 04:16 IV: 100ml; Total: 2350ml. as6 04:19 IV: 100ml; Total: 2450ml. as6 04:19 IV: 100ml; Total: 2550ml. as6 04:19 IV: 10ml; Total: 2560ml. as6 04:19 IV: 20ml; Total: 2580ml. as6 04:20 IV: 10ml; Total: 2590ml. as6 Output: 04:06 Urine: 500ml (Heck); Total: 500ml. as6 Outcome: 00:01 Decision to Hospitalize by Provider. sp4 00:53 ER care complete, transfer ordered by MD. sp4 03:25 Transferred by helicopter to other acute care facility: [facility], report given to Michael PORTILLO. as6 Transfer form completed. X-rays sent w/ patient. 03:25 Condition: stable 03:25 Instructed on the need for transfer. 04:20 Patient left the ED. as6 Addendum: 02/20/2023 04:36 Addendum: Culture Results: Positive blood culture. Vitaly with lab resulted patient's + p f1 blood culture results: +gram cocci in clusters. Notified MAGALI Trevizo of patient's results to receiving nurse. Signatures: Dispatcher [employer] EDMS Gio Salgado RN RN rv Keshav Quevedo RN RN as6 Ghislaine Chávez RN RN pf1 Bailey Currie6 Mendoza Mckeon MD MD sp4 Corrections: (The following items were deleted from the chart) 02/19 03:25 03:24 Patient admitted, IV remains in place. as6 as6
--- NOTE | 2023-02-19 00:02 | EDPHYS ---
Physician Documentation [facility] Name: Fly Montes Age: 52 yrs Sex: Male : 1970 Arrival Date: 02/18/2023 Time: 22:05 Bed 3 Private MD: ED Physician Mendoza Mckeon HPI: 02/18 22:12 This 52 yrs old Male presents to ER via Unassigned with complaints of fever. sp4 23:50 . sp4 23:52 52-year-old male with past medical history of HIV, currently noncompliant with sp4 antiretroviral regimen, states he does not have infectious disease doctor presents with EMS for worsening shortness of breath associated with cough and fever at home starting this morning. Patient persistently coughing on presentation and not able to cooperate fully for review of systems but reports feeling unwell, generalized weakness, cough, shortness of breath, fever also bilateral lower extremity edema. . Historical: - Allergies: 22:12 Tylenol; as6 - PMHx: 22:12 HIV; liver failure; hep c; as6 - PSHx: 22:12 neck; as6 - Immunization history:: Client reports receiving the 2nd dose of the Covid vaccine. - Social history:: Smoking status: Patient reports the use of cigarette tobacco products, smokes one pack cigarettes per day. - Family history:: not pertinent. ROS: 23:52 Constitutional: Positive for fever, chills, weight loss, unmanaged HIV, positive for sp4 generalized weakness. Eyes: Negative for injury, pain, redness, and discharge, ENT: Negative for injury, pain, and discharge, Neck: Negative for injury, pain, and swelling, Cardiovascular: Negative for palpitations, and edema, positive for chest pain Respiratory: Positive for shortness of breath, cough, nonproductive cough, chest pain, pleuritic chest pain Abdomen/GI: Negative for abdominal pain, nausea, vomiting, diarrhea, and constipation, Back: Negative for injury and pain, : Negative for injury, bleeding, discharge, and swelling, MS/Extremity: Negative for injury and deformity, bilateral lower extremity edema Skin: Negative for injury, rash, and discoloration, Neuro: Negative for headache, weakness, numbness, tingling, and seizure, Psych: Negative for depression, anxiety, Allergy/Immunology: Negative for hives, rash, and allergies Endocrine: Negative for neck swelling, polydipsia, polyuria, polyphagia, and weight changes Hematologic/Lymphatic: Negative for swollen nodes, abnormal bleeding, and unusual bruising Exam: 23:52 Constitutional: This is a well developed, well nourished patient who is awake, alert, sp4 Ill-appearing male in mild distress generalized pallor, signs of cachexia, bilateral lower extremity edema with pitting Head/Face: Normocephalic, atraumatic. Eyes: Pupils equal round and reactive to light, extra-ocular motions intact. Lids and lashes normal. Conjunctiva and sclera are not injected. Cornea within normal limits. Periorbital areas with no swelling, redness, or edema. ENT: Nares patent. No nasal discharge, no septal abnormalities noted. Tympanic membranes are normal and external auditory canals are clear. Oropharynx with no redness, swelling, or masses, exudates, or evidence of obstruction, uvula midline. Mucous membranes moist. Neck: Trachea midline, no thyromegaly or masses palpated, and no cervical lymphadenopathy. Supple, full range of motion without nuchal rigidity, or vertebral point tenderness. Chest/axilla: Normal chest wall appearance and motion. Nontender with no deformity. No lesions are appreciated. Cardiovascular: Regular tachycardia with a normal S1 and S2. No gallops, murmurs, or rubs. Normal PMI, no JVD. No pulse deficits. Respiratory: Lungs have equal breath sounds bilaterally, clear to auscultation and percussion. No rales, rhonchi or wheezes noted. No increased work of breathing, no retractions or nasal flaring. Abdomen/GI: Soft, non-tender, with normal bowel sounds. No distension or tympany. No guarding or rebound. No evidence of tenderness throughout. Back: No spinal tenderness. No costovertebral tenderness. Male : Normal genitalia with no discharge or lesions. Skin: Warm, dry with normal turgor. Normal color with no rashes, no lesions, and no evidence of cellulitis. MS/ Extremity: Pulses equal, no cyanosis. Neurovascular intact. Full, normal range of motion. Neuro: Awake and alert, GCS 15, oriented to person, place, time, and situation. Cranial nerves II-XII grossly intact. Motor strength 5/5 in all extremities. Sensory grossly intact. Psych: Awake, alert, with orientation to person, place and time. Appears depressed, physically debilitated 23:52 ECG was reviewed by the Attending Physician. Sinus tachycardia at the rate of 105, EKG sp4 time 2213, no ST elevation or depression. Vital Signs: 22:12 BP 130 / 84; Pulse 108; Resp 25 S; Temp 102.8(O); Pulse Ox 92% on R/A; Weight 72.57 kg as6 (R); Height 5 ft. 11 in. (R); Pain 4/10; 23:29 BP 97 / 51; Pulse 101; Resp 33 S; Pulse Ox 99% on R/A; as6 23:40 BP 105 / 69; Pulse 109; Resp 32 S; Temp 101.6(O); Pulse Ox 95% on 4 lpm NC; as6 02/19 01:14 BP 121 / 62; Pulse 133; Resp 32 S; Pulse Ox 94% on 3 lpm NC; as6 01:31 BP 116 / 60; Pulse 134; Resp 33 S; Temp 104.7(Ca); Pulse Ox 93% on 3 lpm NC; as6 01:48 BP 90 / 51; Pulse 134; Resp 28 S; Temp 105(Ca); Pulse Ox 92% on 3 lpm NC; as6 02:59 BP 89 / 50; Pulse 124; Resp 16 A; Temp 102(Ca); Pulse Ox 97% on 100% FiO2 ETT vent; as6 03:17 BP 134 / 94; Pulse 130; Resp 15 A; Temp 101.5(Ca); Pulse Ox 94% on 60% FiO2 ETT vent; as6 03:54 BP 143 / 92; Pulse 131; Resp 16 A; Temp 100.2(Ca); Pulse Ox 96% on 60% FiO2 ETT vent; as6 02/18 22:12 Body Mass Index 22.32 (72.57 kg, 180.34 cm) as02/18 22:12 Pain Scale: Adult as6 Procedures: 03:20 Intubation: Ventilated with 100% NRB prior to procedure. Intubated orally using Chauncey- sp4 scope assisted intubation with 8.0 mm ETT. was successful on first attempt. Ventilated with Ambu bag. ventilator. Tube secured with ETT hernández at right side of mouth measured 26 cm at lip. Placement verified by CXR, CO2 detector with (+) color change, auscultating bilateral breath sounds, O2 saturation after procedure was 100 %. Patient tolerated well, Chauncey scope assisted intubation. Central Line: the site was prepped with in sterile fashion, Chlorhexidine prep, a triple lumen catheter was inserted, in the right internal jugular vein, in 1 attempts. placement was verified, by CXR, by blood return, Ultrasound-guided central line placed, the site was dressed with 4X4s, Tegaderm, using sterile technique, the patient tolerated the procedure, well, Triple-lumen right internal jugular CVL placed with ultrasound guidance without complications. MDM: 02/18 22:21 Patient medically screened. sp4 02/19 00:01 Differential Diagnosis altered mental status, sepsis, flu. Data reviewed: vital signs, sp4 nurses notes, EMS record, old medical records, lab test result(s), cardiac enzymes, CBC, drug level(s), electrolytes, Flu: hepatic panel, urinalysis, EKG, radiologic studies, CT scan. 00:47 ED course: IMPRESSION: 1. Groundglass opacities scattered within the right upper lobe sp4 suggestive of an infectious process. 2. Moderate pericardial effusion and left pleural effusion. 3. Moderate volume ascites throughout the abdomen and pelvis 4. Splenomegaly and cirrhotic liver. 5. Diffuse body wall edema. 6. Suggestion of a small bowel ileus. 7. Few prominent retroperitoneal lymph nodes. Findings may be reactive, infectious, inflammatory in nature. A neoplastic process is not completely excluded. Correlation with patient's laboratory values and follow-up is recommended. Electronically signed by: Dodie Michelle MD 02/19/2023 12:12 AM CDT . 03:29 ED course: Patient was started on FFP IV, patient was also ordered a 1 unit of packed sp4 red blood cells. Patient was excepted at [facility] for higher level of care secondary to pancytopenia, pneumonia, AIDS, acute liver failure with coagulopathy. Patient's vital signs are stable at this time he is intubated and on Levophed infusion . Will send with aeromedical transport secondary to emergent condition. . 02/18 22:18 Order name: Blood Culture Adult (2) sp4 02/18 22:18 Order name: CBC with Diff; Complete Time: 01:33 sp4 02/18 22:18 Order name: CMP; Complete Time: 23:44 [facility] 02/18 22:18 Order name: Lactate w/ 2H reflex if indic.; Complete Time: 23:44 [facility] 02/18 22:18 Order name: Protime (+inr); Complete Time: 00:47 [facility] 02/18 22:18 Order name: Ptt, Activated; Complete Time: 00:47 [facility] 02/18 22:18 Order name: Urinalysis w/ reflexes; Complete Time: 02:42 [facility] 02/18 22:20 Order name: SARS RAPID [facility] 02/18 22:20 Order name: Influenza Screen (a \T\ B); Complete Time: 23:44 [facility] 02/18 22:26 Order name: SARS-COV-2 RT PCR; Complete Time: 23:44 02/18 22:47 Order name: CBC Smear Scan; Complete Time: 01:33 [facility] 02/19 00:02 Order name: Urine Drug Screen; Complete Time: 02:42 [facility] 02/19 00:51 Order name: Type And Screen 02/19 01:49 Order name: Lactate Sepsis 2 HR Follow-up; Complete Time: 02:15 [facility] 02/19 02:08 Order name: ABO/RH no charge; Complete Time: 02:15 [facility] 02/19 03:01 Order name: Type and Screen [facility] 02/19 03:01 Order name: Antibody Screen [facility] 02/18 22:19 Order name: CT Chest, Abdomen, Pelvis - W/Contrast [facility] 02/19 02:44 Order name: Chest Single View XRAY 02/19 03:20 Order name: Chest Single View XRAY [facility] 02/18 22:18 Order name: EKG; Complete Time: 22:19 [facility] 02/18 22:18 Order name: Accucheck; Complete Time: 22:54 [facility] 02/18 22:18 Order name: Cardiac monitoring; Complete Time: 22:39 [facility] 02/18 22:18 Order name: Cath; Complete Time: 01:49 [facility] 02/18 22:18 Order name: EKG - Nurse/Tech; Complete Time: 22:40 [facility] 02/18 22:18 Order name: IV Saline Lock - Large Bore; Complete Time: 22:40 [facility] 02/18 22:18 Order name: Labs collected and sent; Complete Time: 22:40 sp4 02/18 22:18 Order name: O2 Per Protocol; Complete Time: 22:40 sp4 02/18 22:18 Order name: O2 Sat Monitoring; Complete Time: 22:40 sp4 02/18 22:18 Order name: Vital Signs; Complete Time: 22:40 sp4 02/18 23:16 Order name: Labs - recollect needed: blue top; Complete Time: 23:40 bc6 02/19 02:52 Order name: Central Line Kit; Complete Time: 02:54 sp4 EC/10 23:52 Rate is 105 beats/min. Rhythm is regular, Sinus tachycardia. QRS [place] is Normal. IN sp4 interval is normal. QRS interval is normal. QT interval is normal. T waves are Normal. Clinical impression: No evidence of ischemia. Interpreted by me. Administered Medications: 22:39 Drug: Ibuprofen PO 800 mg Route: PO; 02/19 04:14 Follow up: Response: No adverse reaction 02/18 22:39 Drug: morphine IVP or IV 4 mg Route: IVP; Infused Over: 4 mins; Site: right forearm; 02/19 04:14 Follow up: Response: No adverse reaction 02/18 22:39 Drug: Ondansetron IVP 4 mg Route: IVP; Site: right forearm; 02/19 04:14 Follow up: Response: No adverse reaction 02/18 22:39 Drug: NS 0.9% IV 1000 ml Route: IV; Rate: 1 bolus; Site: right forearm; 02/19 04:15 Follow up: Response: No adverse reaction; IV Status: Completed infusion; IV Intake: as6 1000ml 02/18 22:39 Drug: NS 0.9% IV 1000 ml Route: IV; Rate: 1 bolus; Site: right forearm; 02/19 04:16 Follow up: Response: No adverse reaction; IV Status: Completed infusion; IV Intake: as6 1000ml 02/18 22:52 Drug: vancoMYCIN IVPB 1 grams Route: IVPB; Infused Over: 2 hrs; Site: right forearm; 02/19 04:16 Follow up: Response: No adverse reaction; IV Status: Completed infusion; IV Intake: as6 250ml 02/18 22:52 Drug: Piperacillin-Tazobactam IVPB 3.375 grams Route: IVPB; Infused Over: 60 mins; as6 Site: left forearm; 02/19 04:16 Follow up: Response: No adverse reaction; IV Status: Completed infusion; IV Intake: as6 100ml 02/18 23:58 Drug: morphine IVP or IV 2 mg Route: IVP; Infused Over: 4 mins; Site: left forearm; as02/19 04:16 Follow up: Response: No adverse reaction 02/18 23:58 Drug: Dextromethorphan-Guaifenesin PO Liquid 10 mg-100 mg/5 mL 10 ml Route: PO; 02/19 04:17 Follow up: Response: No adverse reaction 02/18 23:58 Drug: Tessalon Perle PO 200 mg Route: PO; 02/19 04:17 Follow up: Response: No adverse reaction 02/18 23:58 Drug: DuoNeb Nebulize (3:1) (2.5 mg - 0.5 mg) 3 ml Route: Nebulizer; 02/19 04:18 Follow up: Response: No adverse reaction as6 01:05 Drug: Albumin IVPB 25 grams Volume: 100 ml; Route: IVPB; Site: left forearm; rv 04:19 Follow up: Response: No adverse reaction; IV Status: Completed infusion; IV Intake: as6 100ml 01:48 Drug: Ketorolac IVP 30 mg Route: IVP; Site: right forearm; as6 04:18 Follow up: Response: No adverse reaction as6 01:48 Drug: diphenhydrAMINE IVP 25 mg Route: IVP; Site: right forearm; as6 04:18 Follow up: Response: No adverse reaction as6 02:30 Drug: Albumin IVPB 25 grams Volume: 100 ml; Route: IVPB; Site: left forearm; as6 04:19 Follow up: Response: No adverse reaction; IV Status: Completed infusion; IV Intake: as6 100ml 02:35 Drug: Etomidate IVP 40 mg Route: IVP; Site: right forearm; as6 04:18 Follow up: Response: No adverse reaction as6 02:36 Drug: Rocuronium IVP 100 mg Route: IVP; Site: right forearm; as6 04:18 Follow up: Response: No adverse reaction as6 02:46 Drug: fentaNYL (PF) IV 25 mcg/kg/h Route: IV; Rate: calculated rate; Site: right as6 forearm; 04:19 Follow up: Response: No adverse reaction; IV Status: Infusion continued upon transfer; as6 IV Intake: 20ml 02:51 Drug: Midazolam IVP or IV 0.01 mg/kg/h Route: IV; Rate: calculated rate; Site: right as6 forearm; 04:19 Follow up: Response: No adverse reaction; IV Status: Infusion continued upon transfer; as6 IV Intake: 10ml 02:58 Drug: Norepinephrine IV 0.1 mcg/kg/min Route: IV; Rate: calculated rate; Site: left as6 forearm; 04:20 Follow up: Response: No adverse reaction; IV Status: Infusion continued upon transfer; as6 Order to discontinue infusion; IV Intake: 10ml Disposition Summary: 02/19/23 00:53 Transfer Ordered Reason: Higher level of care sp4 Condition: Serious(02/19/23 00:53) sp4 Problem: new(02/19/23 00:53) sp4 Symptoms: have improved(02/19/23 00:53) sp4 Transfer Location: Other Acute Care Facility(02/19/23 03:23) sp4 Accepting Physician: Dr. Mckenzie Day (02/19/23 04:20) as6 Diagnosis - Acute on chronic liver failure, coagulopathy, liver cirrhosis, body wall edema, sp4 sepsis, right upper lung pneumonia, AIDS, history hepatitis C, elevated INR, pancytopenia Forms: - Medication Reconciliation Form sp4 - SBAR form sp4 Critical care time excluding procedures: 03:23 Critical care time: Bedside Care: 46 minutes, Consultation: 12 minutes. Total time: 58 sp4 minutes Signatures: Dispatcher [employer] Gio Lemos RN RN rv Slawson, Ashby, RN RN as6 Bailey Currie Sergey, MD MD sp4 Corrections: (The following items were deleted from the chart) 00:51 00:01 Inpatient Admission sp4 sp4 00:51 00:01 Ashkan Lo sp4 sp4 00:51 00:01 Telemetry/MedSurg (Inpatient) sp4 sp4 00:51 00:01 Stable sp4 sp4 00:51 00:01 new sp4 sp4 00: 00:01 have improved sp4 sp4 00:51 00:01 Standard sp4 sp4 00: 00:01 sp4 sp4 00: 00:01 Lobar pneumonia, unspecified organism sp4 sp4 00:51 00:01 HIV, unmanaged HIV, AIDS, noncompliance of medications, right upper lung sp4 pneumonia, hypoxemia, physical debility sp4 03:23 00:53 PAMB Attending sp4 sp4 03: 00:53 [facility] [[email or web address]]-System sp4 sp4 04:20 03:23 Dr. Mckenzie Day sp4 as6
[2023-02-19] MEDS ORDERED: ONDANSETRON 4 MG/2 ML VIAL IV PRN (00:18)
[2023-02-19] MEDS ORDERED: ALBUTEROL 2.5 MG/3 ML NEB SOL NEB PRN (00:18)
[2023-02-19] MEDS ORDERED: ACETAMINOPHEN 500 MG TAB PO PRN (00:18)
[2023-02-19] MEDS ORDERED: ALPRAZOLAM 0.25 MG TABLET PO PRN (00:18)
[2023-02-19 00:46] LABS: Protime INR > 12.00
[2023-02-19] MEDS ORDERED: NA CHLORIDE 0.9% 1,000 ML IV SCH (01:00)
[2023-02-19] MEDS ORDERED: TMP IVPB SCH (01:00)
[2023-02-19] MEDS ORDERED: SMZ IVPB SCH (01:00)
[2023-02-19] MEDS ORDERED: Levofloxacin 750mg IV 750 MG/150 ML BAG IV SCH (01:00)
[2023-02-19] MEDS ORDERED: D5W IVPB SCH (01:00)
[2023-02-19] MEDS ORDERED: ALBUMIN HUMAN 25% 100 ML IV ONE (01:05)
[2023-02-19 01:12] LABS: Anisocytosis 1+; Blood Morphology Comment NOTED (NOT SEEN); Platelet Estimate DECR; White Blood Cell Scan OK (OK)
[2023-02-19] MEDS ORDERED: ALBUMIN HUMAN 25% 50 ML IV ONE ×2 (01:35→01:43)
[2023-02-19] MEDS ORDERED: DIPHENHYDRAMINE 50 MG/ML VIAL ONE (01:49)
[2023-02-19] MEDS ORDERED: KETOROLAC 30 MG/ML INJ ONE (01:49)
[2023-02-19] MEDS ORDERED: NA CHLORIDE 0.9% 250 ML ONE (02:10)
[2023-02-19 02:18] LABS: Barbiturates NEGATIVE (NEGATIVE); Benzodiazepines NEGATIVE (NEGATIVE); Cocaine NEGATIVE (NEGATIVE); METHAMPHETAM NEGATIVE (NEGATIVE); Methadone NEGATIVE (NEGATIVE); Opiates POSITIVE (NEGATIVE); Phencyclidine NEGATIVE (NEGATIVE); THC Cannibis NEGATIVE (NEGATIVE)
[2023-02-19 02:23] LABS: Renal Epithelial <5 /HPF (None Seen); Specific Gravity 1.026 (1.005-1.030); Urine Bacteria None Seen /HPF (<20); Urine Bilirubin NEGATIVE (Negative); Urine Blood 1+ (Negative); Urine Clarity Clear (Clear); Urine Color Light-Yellow (Yellow); Urine Glucose NEGATIVE (Negative); Urine Mucus Slight /HPF (None Seen); Urine Protein TRACE (Negative); Urine Urobilinogen Normal (Normal); Urine pH 6.5 (5.0-7.0)
[2023-02-19] MEDS ORDERED: ROCURONIUM 50 MG/5 ML VIAL IV ONE (02:31)
[2023-02-19] MEDS ORDERED: ETOMIDATE 20 MG/10 ML VIAL IV ONE (02:31)
[2023-02-19] MEDS ORDERED: FENTANYL CITR 100 MCG/2 ML ONE (02:50)
[2023-02-19] MEDS ORDERED: NA CHLORIDE 0.9% 50 ML ONE (02:51)
[2023-02-19] MEDS ORDERED: MIDAZOLAM HCL IN 0.9 % NACL/PF 100 MG/100 ML BAG IVPB ONE ×2 (02:53→02:56)
[2023-02-19] MEDS ORDERED: NOREPINEPHRINE BITARTRATE/D5W 4 MG/250 ML BAG IV ONE (03:05)
[2023-02-19 05:08] VITALS: BP 143/92; TEMP 100.2; O2SAT 96
--- NOTE | 2023-02-19 16:04 | RAD REPORT ---
EXAM DESCRIPTION: CT Chest, Abdomen and Pelvis With Intravenous Contrast CLINICAL HISTORY: The patient is 52 years old and is Male; CHEST PAIN TECHNIQUE: Axial computed tomography images of the chest, abdomen and pelvis with intravenous contra st. Sagittal and coronal reformatted images were created and reviewed. This CT exam was performed using one or more of the following dose reduction techniques: automated exposure control, adjustme nt of the mA and/or kV according to patient size, and/or use of iterative reconstruction technique. COMPARISON: No relevant prior studies available. FINDINGS: ARTIFACTS: The exam is suboptimal secondary to motion artifact. CHEST: LUNGS: Groundglass opacities are present within the right upper lobe. Atelectasis within the left lower lobe is present. The lungs are otherwise clear. PLEURAL SPACE: A moderate left pleural effusion is present. No pneumothorax. HEART: A moderate sized pericardial effusion is noted. ABDOMEN: LIVER: The liver demonstrates a slightly nodular contour. GALLBLADDER AND BILE DUCTS: The gallbladder is distended. PANCREAS: No ductal dilation. No mass. SPLEEN: The spleen is enlarged and heterogeneous. ADRENALS: Unremarkable. No mass. KIDNEYS AND URETERS: Unremarkable. The kidneys enhance symmetrically. No obstructing renal or ure teral calculus is seen. No hydronephrosis or hydroureter. No perinephric fluid or stranding. STOMACH AND BOWEL: The stomach is filled with fluid and air. Several small bowel loops demonstrat ing air-fluid levels and are minimally prominent. A moderate amount stool is noted throughout colon. There is no evidence of obstruction. PELVIS: APPENDIX: The appendix is surgically absent. BLADDER: Unremarkable. No mass. REPRODUCTIVE: Unremarkable as visualized. CHEST, ABDOMEN and PELVIS: INTRAPERITONEAL SPACE: Moderate volume ascites is present throughout the abdomen and pelvis. No free air. BONES/JOINTS: No acute fracture. SOFT TISSUES: Mild diffuse body wall edema is present. VASCULATURE: Calcified phleboliths are present within the pelvis. No aortic aneurysm. LYMPH NODES: A few minimally prominent retroperitoneal lymph nodes are present. IMPRESSION: 1. Groundglass opacities scattered within the right upper lobe suggestive of an infect ious process. 2. Moderate pericardial effusion and left pleural effusion. 3. Moderate volume ascites throughout the abdomen and pelvis. 4. Splenomegaly and cirrhotic liver. 5. Diffuse body wall edema. 6. Suggestion of a small bowel ileus. 7. Few prominent retroperitoneal lymph nodes. Findings may be reactive, infectious, inflammatory in nature. A neoplastic process is not completely excluded. Correlation with patient's laboratory value s and follow-up is recommended. Electronically signed by: Dodie Michelle MD 02/19/2023 12:12 AM CDT Due to temporary technical issues with the PACS/Fluency reporting system, reports are being signed by the in house radiologists without review as a courtesy to insure prompt reporting. The interpreting radiologist is fully responsible for the content of the report.
--- NOTE | 2023-02-19 19:23 | RAD REPORT ---
EXAM DESCRIPTION: ADDENDUM #1 Addendum: Dr. Frey discussed these findings regarding the ET tube position with the patient's nurse, Orly Lagos RN, via telephone at approximately 04:53 hours EST on 02/19/2023. Electronically signed by: Sina Frey MD 02/19/2023 4:08 AM CDT End of Addendum EXAM DESCRIPTION: XR Chest, 1 View CLINICAL HISTORY: The patient is 52 years old and is Male; POST ETT [facility] MAIN TECHNIQUE: Frontal view of the chest. COMPARISON: 05/23/2022 chest radiograph FINDINGS: LUNGS: Bilateral perihilar and central interstitial opacities suspicious for pulmonary e monica versus atypical pneumonia. PLEURAL SPACE: No definite pleural effusion, though could not exclude a layering left effusion. No pneumothorax. HEART: See below. MEDIASTINUM: Prominence of the cardiomediastinal silhouette, though likely exaggerated secondary to portable technique, lordotic positioning, and patient body habitus. No mediastinal shift. BONES/JOINTS: Unremarkable. TUBES, LINES AND DEVICES: The endotracheal tube (ETT) is low in position with tip 0.2 cm above the elsie and could be pulled back. Enteric tube tip terminates below the inferior margin of the image. IMPRESSION: 1. The endotracheal tube (ETT) is low in position with tip 0.2 cm above the elsie and could be pulled back. 2. Bilateral perihilar and central interstitial opacities suspicious for pulmonary edema versus aty pical pneumonia. 3. No definite pleural effusion, though could not exclude a layering left effusion. Electronically signed by: Sina Frey MD 02/19/2023 3:41 AM CDT Due to temporary technical issues with the PACS/Fluency reporting system, reports are being signed by the in house radiologists without review as a courtesy to insure prompt reporting. The interpreting radiologist is fully responsible for the content of the report.
--- NOTE | 2023-02-19 19:24 | RAD REPORT ---
EXAM DESCRIPTION: XR Chest, 1 View CLINICAL HISTORY: The patient is 52 years old and is Male; R IJ Central line placement [facility] TECHNIQUE: Frontal view of the chest. COMPARISON: 02/19/2023 chest radiograph at 02: 48 hours FINDINGS: LUNGS: Bilateral perihilar and central interstitial opacities suspicious for mild pulmon ankit edema versus atypical pneumonia. PLEURAL SPACE: No definite pleural effusion, though could not exclude a small layering left-sided eff usion. No pneumothorax. HEART: See below. MEDIASTINUM: Stable prominence of the cardiomediastinal silhouette. BONES/JOINTS: Unremarkable. TUBES, LINES AND DEVICES: The endotracheal tube (ETT) is low in position with tip 0 cm above the ca [place]aya and could be pulled back. Right IJ approach CVC tip terminates in the distal SVC. Enteric tube tip terminates below the inferior margin of the image. IMPRESSION: 1. The endotracheal tube (ETT) remains low in position with tip 0 cm above the elsie and could be pulled back 1 to 2 cm for improved positioning Dr. Frey discussed these findings with the patient's nurse, Orly Lagos RN, via telephone at [facility] 04:53 hours EST on 02/19/2023. 2. Bilateral perihilar and central interstitial opacities suspicious for mild pulmonary edema versu s atypical pneumonia. 3. Remaining support devices as above. Electronically signed by: Sina Frey MD 02/19/2023 4:03 AM CDT Due to temporary technical issues with the PACS/Fluency reporting system, reports are being signed by the in house radiologists without review as a courtesy to insure prompt reporting. The interpreting radiologist is fully responsible for the content of the report.
--- NOTE | 2023-02-19 20:22 | EKG ---
Test Date: 2023-02-18 Test Time: 22:13:14 Hazardous Material Technician: RV MEASUREMENT RESULTS: Intervals: Rate: 105 [place]: 142 QRSD: 90 QT: 380 QTc: 502 [place]: P: 83 [place]: 142 QRS: 78 T: 87 INTERPRETIVE STATEMENTS: Sinus tachycardia Nonspecific T wave abnormality Abnormal ECG No previous ECG available for comparison Electronically Signed On 02-19-23 20:21:32 CDT by Trev Velasco
== END 2023-02-19 04:20 ==
LOC: ER 22:05 → ERHOLD 23:50 → UNDOADMIN 23:50 → ERHOLD 02-19 17:58
DX: J18.9 Pneumonia, unspecified organism (principal); A41.9 Sepsis, unspecified organism; K72.00 Acute and subacute hepatic failure without coma; K74.60 Unspecified cirrhosis of liver; D68.9 Coagulation defect, unspecified; R60.1 Generalized edema; Z21 Asymptomatic human immunodeficiency virus [HIV] infection status; R79.83 Abnormal findings of blood amino-acid level; D61.818 Other pancytopenia; F17.210 Nicotine dependence, cigarettes, uncomplicated; Z86.19 Personal history of other infectious and parasitic diseases; Z20.822 Contact with and (suspected) exposure to COVID-19; Z88.6 Allergy status to analgesic agent
CPT/HCPCS: 93005; 87040 ×2; 85025; 81001; 36415; 86900; 86850 ×2; 87205; 85610; 86901; 83605 ×2; 85730; 86920 ×2; 86927; 80053; 87635; 80307; 87804 ×2; 71260; 74177; 71045 ×2; 94640; 31500; 51702; 99285; 94002; Q9967; J2250; J1200; J2543; J7613; J7644; J3010; J2270; J2405; P9016; P9059; P9017; P9047 ×3; J7050 ×2; J7030